=== PATIENT | female | born 2000 | race Caucasian/White ===

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

== ENCOUNTER 2021-02-19 10:27 | Emergency (ER) | payer BC, SELFPAY ==
--- NOTE | ~2021-02-19 | US_ITS ---
EXAMINATION: US OB <=14 wk fetus w TV DATE: 02/19/2021 14:11 INDICATION: Pelvic pain. Nausea and vomiting. Estimated gestational age of 14 weeks and 0 days. TECHNIQUE: Real-time transabdominal and transvaginal pelvic ultrasound was performed. COMPARISON: None. FINDINGS: TRANSABDOMINAL ULTRASOUND: The uterus size was not measured. TRANSVAGINAL ULTRASOUND: There is an intrauterine gestational sac with a single fetus in transverse l ie. heart motion is identified measuring 163 beats per minute (bpm) by M-mode Doppler. The plac enta is posterior. There is a 4.1 x 4.6 x 4.6 cm hypoechoic mass in the uterine fundus adjacent to th e placenta. The ovaries are not visualized. There is no free fluid in the pelvis. IMPRESSION: 1. 4.6 cm hypoechoic mass in the uterine fundus adjacent to the placenta, which may be a fibroid or hematoma. Reviewed, dictated and finalized at location B. IMPRESSION: 1. 4.6 cm hypoechoic mass in the uterine fundus adjacent to the placenta, whic h may be a fibroid or hematoma.
[2021-02-19 10:31] VITALS: BP 186/96; PULSE 118; RESP 18; TEMP 36.6; O2SAT 96
--- NOTE | 2021-02-19 10:33 | ED.ABDPAIN ---
HPI - Abdominal Pain General Chief Complaint: Abdominal Pain Stated Complaint: abd pain, n/v, 13 wks Time Seen by Provider: 02/19/21 10:33 Source: patient Mode of arrival: ambulatory Limitations: no limitations History of Present Illness HPI narrative: Patient is a 20-year-old female, G1, P0 currently 13 weeks dated by ultrasound at her OB office, who presents for evaluation of abdominal pain. Patient reports a pressure-like sensation in her lower abdomen that was severe overnight and improving today. She had some associated nausea and several episodes of nonbloody, nonbilious emesis yesterday. She currently denies any fever or chills. No vaginal bleeding or recent intercourse. No loss of fluids or contraction-like pain. She denies fever, chills, constipation or diarrhea. She reports pain is now mostly in the upper abdomen described as dull, aching in nature. No history of abdominal surgery. Related Data Home Medications Medication Instructions Recorded Confirmed prenat.vits,naman,aqx-rifi-opmhe 1 tablet PO DAILY 02/19/21 02/19/21 [ Vitamin] Allergies Allergy/AdvReac Type Severity Reaction Status Date / Time No Known Allergies Allergy Verified 02/19/21 10:35 Review of Systems Review of Systems: Narrative: CONSTITUTIONAL: Denies fever, chills, or sweats. EYES: Denies visual changes, redness, or discharge. ENT: Denies rhinorrhea, congestion, sore throat, or otalgia. CARDIOVASCULAR: Denies chest pain, palpitations, or edema. RESPIRATORY: Denies cough or dyspnea. GASTROINTESTINAL: Reports centralized abdominal pain, denies diarrhea or constipation GENITOURINARY: Denies dysuria or hematuria. SKIN: Denies rash or itching. MUSCULOSKELETAL: Reports chronic mild back pain, denies other joint pain or myalgias NEUROLOGIC: Denies headache, numbness, or weakness. [facility] Past Medical History Medical History (Updated 02/19/21 @ 15:24 by Santa Sumner MD) Anxiety and depression History of prediabetes History of strep sore throat Left elbow fracture Nonalcoholic liver disease, chronic Surgical History Surgical History History of tonsillectomy and adenoidectomy Social History Social History Smoking status: Never smoker Additional occupation/education comments: [employer] Gender identity (if verbalized by the patient): Female Exam Narrative: Exam Narrative: GENERAL: Awake, alert, conversant HEAD: Normocephalic, atraumatic. EYES: PERRLA and EOMI. ENT: Nares clear, no rhinorrhea or epistaxis. Mucous membranes moist. NECK: Supple. CHEST: No respiratory distress, breathing even and non labored HEART: Tachycardic rate, sinus rhythm ABDOMEN:Non distended, tender in the epigastrium and right upper quadrant, no suprapubic tenderness, no pelvic tenderness, no lower quadrant tenderness on exam, no guarding, nonrigid EXTREMITIES: Normal range of motion. No edema. SKIN: Warm, dry, no rash. NEURO:No focal deficits. Alert and oriented x3 Course Vital Signs Vital signs: Vital Signs Temperature 36.6 C 02/19/21 10:31 Pulse Rate 118 H 02/19/21 10:31 Respiratory Rate 18 02/19/21 10:31 Blood Pressure 186/96 H 02/19/21 10:31 Pulse Oximetry 96 02/19/21 10:31 Temperature 36.6 C 02/19/21 10:31 Pulse Rate 96 02/19/21 11:11 Respiratory Rate 18 02/19/21 11:11 Blood Pressure 153/87 H 02/19/21 11:11 Pulse Oximetry 100 02/19/21 11:11 MDM - Abdominal Pain MDM Narrative Medical decision making narrative: Patient presented for evaluation of upper abdominal pain. At the time of assessment, pain is mild in nature. Mildly reproducible on exam. No vaginal bleeding or vaginal discharge. IV access obtained and labs were drawn. Laboratory results are reassuring. No anemia. No leukocytosis to be suggestive of acute intra-abdominal infection such as appendicitis or
[2021-02-19] MEDS: ONDANSETRON INJ 4 MG/2 ML VIAL IV PUSH (10:57)
[2021-02-19] MEDS: SODIUM CHLORIDE 0.9% IV 1,000 ML 999 ML IV CONT (10:57)
[2021-02-19 10:58] LABS: Basophils Percent Auto 0.1 % (0.2-1.2); Eosinophils Percent Auto 0.1 % (0-4.4); Hematocrit 37.3 % (37.0-47.0); Hemoglobin 12.4 g/dL (12.0-15.0); Immature Granulocyte Absolute 0.02 K/mm3 (0.00-0.031); Immature Granulocyte Percent A 0.3 % (0-0.5); Lymphocytes Absolute Auto 1.12 K/mm3 (0.9-3.2); Lymphocytes Percent Auto 14.1 % (18.3-44.2); Mean Corpuscular HGB Conc 33.2 g/dl (32-36); Mean Corpuscular Hemoglobin 26.8 pg (26-34); Mean Corpuscular Volume 80.6 fl (80-100); Mean Platelet Volume 8.4 fl (7.4-10.4); Monocytes Absolute Auto 0.4 K/mm3 (0.1-0.6); Monocytes Percent Auto 4.7 % (2.6-8.5); Neutrophils Absolute Auto 6.4 K/mm3 (1.3-6.7); Neutrophils Percent Auto 80.7 % (45.5-73.1); Platelet Count Result 327 k/mm3 (150-375); Red Blood Count 4.63 M/mm3 (4.2-5.4); Red Cell Distribution Width 13.8 % (11.5-14.5)
[2021-02-19 11:11] VITALS: BP 153/87; PULSE 96; RESP 18; O2SAT 100
[2021-02-19 11:11] LABS: Alanine Aminotransferase 14 U/L (4-35); Albumin Level 4.2 g/dL (3.7-5.6); Alkaline Phosphatase 73 U/L (45-116); Anion Gap 8 mmol/L (8-16); Aspartate Amino Transferase 23 U/L (14-36); Bilirubin,Total 0.5 mg/dL (0.2-1.3); Blood Urea Nitrogen 7 mg/dL (8-21); Calcium 9.5 mg/dL (8.9-10.7); Carbon Dioxide 26 mmol/L (22-30); Chloride 103 mmol/L (98-107); Estimated CRCL calculation 207 ml/min; Estimated Glomerular Filt Rate > 60; Glucose 108 mg/dL (65-105); Lipase 27 U/L (23-300); Potassium 3.6 mmol/L (3.4-5.0); Sodium 137 mmol/L (134-143)
--- NOTE | 2021-02-19 12:43 | PC.NURSE ---
Called chemistry Lab and added on Beta HCG per Santa.anderson...green top already in lab. Spoke with Santa
[2021-02-19] MEDS: ACETAMINOPHEN 500 MG TABLET 1000 MG PO (12:53)
[2021-02-19 15:13] LABS: Add Urine Microscopic? YES; Appearance Urine Cloudy (Clear); Bacteria Urine Trace /hpf; Bilirubin Urine Negative (Negative); Blood Urine Negative (Negative); Color Urine Amber (Yellow); Glucose Urine UA Negative (Negative); Ketones Urine 2+ mg/dL (Negative); Leukocyte Esterase Ur Trace LEU/UL (Negative); Mucus Urine Heavy /lpf; Nitrate Urine Negative (Negative); Protein Urine 2+ mg/dL (Negative); RBC Urine 0-2 /hpf (0-2); Squamous Epithelial Cell Urine Many /hpf (Few)
[2021-02-19 15:17] LABS: Specific Grav Ur 1.035 (1.001-1.035)
== END 2021-02-19 16:06 | disposition home or self-care (01) ==
PROVIDERS: Emergency Provider Emergency Medicine; PCP Family Medicine
DX: O26.891 Other specified pregnancy related conditions, first trimester (principal); R10.10 Upper abdominal pain, unspecified; R82.71 Bacteriuria; O99.891 Other specified diseases and conditions complicating pregnancy; N85.8 Other specified noninflammatory disorders of uterus; O26.611 Liver and biliary tract disorders in pregnancy, first trimester; K76.9 Liver disease, unspecified; Z3A.13 13 weeks gestation of pregnancy
CPT/HCPCS: 36415; 76801; 76817; 80053; 81001; 83690; 84702; 85025; 85461; 96361; 96374; 99284; A9270; J2405; J7030

== ENCOUNTER 2021-05-14 09:44 | Emergency (ER) | payer BC, SELFPAY ==
[2021-05-14] VITALS (11 sets, daily range): BP systolic 106–138; BP diastolic 66–88; PULSE 77–103; RESP 12–24; O2SAT 94–100
--- NOTE | ~2021-05-14 | XR_ITS ---
XR chest 1V DATE: 05/14/2021 11:07 INDICATION: Shortness of breath TECHNIQUE: PA chest COMPARISON: 06/27/2017 two-view chest FINDINGS: Normal heart size. No hilar or mediastinal enlargement. Minimal atelectasis in the lung bas es. No pleural effusion or pulmonary vascular congestion or pneumothorax. Included skeletal structures are unremarkable. IMPRESSION: Minimal basilar atelectasis Reviewed, dictated and finalized at location B. IMPRESSION: Minimal basilar atelectasis
--- NOTE | 2021-05-14 10:01 | ECG_ITS ---
Measurements Intervals [place] Rate: 104 P: 17 HI: 150 QRS: 12 QRSD: 100 T: 32 QT: 319 QTc: 420 Interpretive Statements SINUS TACHYCARDIA VOLTAGE CRITERIA FOR LVH MINIMAL Q WAVES- HIGH LATERAL LEADS BASELINE ARTIFACT- I, III, AVL BORDERLINE ECG Electronically Signed On 05-14-2021 10:07:17 CDT by Jaquan Bettencourt D.O.
[2021-05-14 10:16] LABS: Basophils Percent Auto 0.1 % (0.2-1.2); Eosinophils Percent Auto 0.2 % (0-4.4); Hematocrit 33.1 % (37.0-47.0); Immature Granulocyte Absolute 0.02 K/mm3 (0.00-0.031); Immature Granulocyte Percent A 0.2 % (0-0.5); Lymphocytes Absolute Auto 1.03 K/mm3 (0.9-3.2); Lymphocytes Percent Auto 12.6 % (18.3-44.2); Mean Corpuscular HGB Conc 33.2 g/dl (32-36); Mean Corpuscular Hemoglobin 27.4 pg (26-34); Mean Corpuscular Volume 82.3 fl (80-100); Mean Platelet Volume 8.7 fl (7.4-10.4); Monocytes Absolute Auto 0.4 K/mm3 (0.1-0.6); Monocytes Percent Auto 5.4 % (2.6-8.5); Neutrophils Absolute Auto 6.6 K/mm3 (1.3-6.7); Neutrophils Percent Auto 81.5 % (45.5-73.1); Platelet Count Result 274 k/mm3 (150-375); Red Blood Count 4.02 M/mm3 (4.2-5.4); Red Cell Distribution Width 13.2 % (11.5-14.5); White Blood Count 8.2 K/mm3 (4.5-10.0)
[2021-05-14 10:27] LABS: Anion Gap 6 mmol/L (8-16); Blood Urea Nitrogen 5 mg/dL (8-21); Calcium 9.7 mg/dL (8.9-10.7); Carbon Dioxide 25 mmol/L (22-30); Chloride 102 mmol/L (98-107); Estimated CRCL calculation 205 ml/min; Estimated Glomerular Filt Rate > 60; Glucose 101 mg/dL (65-105); Potassium 3.8 mmol/L (3.4-5.0); Sodium 133 mmol/L (134-143)
[2021-05-14] MEDS: SODIUM CHLORIDE 0.9% IV 1,000 ML 999 ML IV CONT (10:45)
--- NOTE | 2021-05-14 13:30 | ED.SOB ---
HPI - SOB/Dyspnea General Chief Complaint: Shortness of Breath/Dyspnea Stated Complaint: 26WKS PREG -ABD PAIN, FEELS SOB Time Seen by Provider: 05/14/21 10:13 History of Present Illness HPI Narrative: Patient is a 20-year-old female who presents ER with shortness of breath. She is 26 weeks . 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 She became short of breath and fatigued. She reports that she has been having some abdominal cramping associated with this. No urinary frequency urgency or dysuria. No fevers or chills or sweats. Denies runny nose or sore throat or productive cough. Denies complications with her . Related Data Home Medications Medication Instructions Recorded Confirmed prenat.vits,naman,mir-[id number]-[id number] 1 tablet PO DAILY 02/19/21 02/19/21 [ Vitamin] aspirin [Adult Aspirin] 162 mg PO DAILY 05/14/21 05/14/21 Allergies Allergy/AdvReac Type Severity Reaction Status Date / Time No Known Allergies Allergy Verified 05/14/21 10:04 Review of Systems Review of Systems: All systems reviewed & are unremarkable except as noted in HPI and below Constitutional: Constitutional: Denies chills, Denies fever(s) and Reports weakness ENT: Denies nasal congestion and Denies sore throat Cardiovascular: Cardiovascular: Denies chest pain, Denies rapid heart rate and Denies radiating jaw, neck or arm pain Respiratory: Respiratory: Denies cough, Reports dyspnea and Denies wheezing Gastrointestinal: Gastrointestinal: Reports abdominal pain, Denies nausea and Denies vomiting Genitourinary: Genitourinary: Denies nocturia and Denies dysuria [facility] Past Medical History Medical History (Updated 05/14/21 @ 13:48 by Levon Sutton MD) Anxiety and depression History of prediabetes History of strep sore throat Left elbow fracture Nonalcoholic liver disease, chronic Surgical History Surgical History History of tonsillectomy and adenoidectomy Social History Social History Smoking status: Never smoker Additional occupation/education comments: [employer] Gender identity (if verbalized by the patient): Female Exam Narrative: Exam Narrative: GENERAL: Well-appearing, well-nourished, and in no acute distress. HEAD: Normocephalic, atraumatic. CHEST: Clear to auscultation. No respiratory distress. HEART: Tachycardic and regular. Normal peripheral pulses. ABDOMEN: Soft, nontender, nondistended. Uterus palpated above the umbilicus. EXTREMITIES: Normal range of motion. No edema. SKIN: Warm, dry, no rash. NEURO: Alert and oriented x3. PSYCH: Normal mood and affect. Course Course Emergency Course: Patient reports he feels markedly improved after IV fluid. Discharge home. Vital Signs Vital signs: Vital Signs Pulse Rate 103 H 05/14/21 09:57 Respiratory Rate 12 05/14/21 09:57 Blood Pressure 130/81 05/14/21 09:57 Pulse Oximetry 94 05/14/21 09:57 Pulse Rate 83 05/14/21 13:01 Respiratory Rate 24 H 05/14/21 13:01 Blood Pressure 120/74 05/14/21 13:01 Pulse Oximetry 100 05/14/21 13:14 MDM - SOB/Dyspnea Lab Data Result diagrams: 05/14/21 10:09 05/14/21 10:09 Labs: Lab Results 05/14/21 05/14/21 Range/Units 10:09 10:09 WBC 8.2 (4.5-10.0) K/mm3 RBC 4.02 L (4.2-5.4) M/mm3 Hgb 11.0 L (12.0-15.0) g/dL Hct 33.1 L (37.0-47.0) % MCV 82.3 (80-100) fl MCH 27.4 (26-34) pg MCHC 33.2 (32-36) g/dl RDW 13.2 (11.5-14.5) % Plt Count 274 (150-375) k/mm3 MPV 8.7 (7.4-10.4) fl Immature Gran % (Auto) 0.2 (0-0.5) % Neut % (Auto) 81.5 H (45.5-73.1) % Lymph % (Auto) 12.6 L (18.3-44.2) % [place] % (Auto) 5.4 (2.6-8.5) % Eos % (Auto) 0.2 (0-4.4) % Baso % (Auto) 0.1 L (0.2-1.2) % Lymph # (Auto) 1.03 (0.9-3.2) K/mm3 [place] # (Auto) 0.4 (0.1-0.6) K/mm3
== END 2021-05-14 14:13 | disposition home or self-care (01) ==
PROVIDERS: Emergency Provider Emergency Medicine; PCP Family Medicine
DX: O26.892 Other specified pregnancy related conditions, second trimester (principal); T67.5XXA Heat exhaustion, unspecified, initial encounter; Z79.82 Long term (current) use of aspirin; Z3A.26 26 weeks gestation of pregnancy; X30.XXXA Exposure to excessive natural heat, initial encounter; Y92.59 Other trade areas as the place of occurrence of the external cause; Y99.0 Civilian activity done for income or pay
CPT/HCPCS: 36415; 71045; 80048; 85025; 93005; 96360; 99284; J7030

== ENCOUNTER 2021-06-27 15:06 | Outpatient (CLI) | payer BC, SELFPAY ==
[2021-06-27 15:45] VITALS: BP 123/65; PULSE 92
[2021-06-27 16:00] VITALS: BP 121/56; PULSE 98
[2021-06-27 16:00] LABS: Basophils Percent Auto 0.2 % (0.2-1.2); Eosinophils Percent Auto 0.3 % (0-4.4); Hemoglobin 10.9 g/dL (12.0-15.0); Immature Granulocyte Absolute 0.01 K/mm3 (0.00-0.031); Immature Granulocyte Percent A 0.2 % (0-0.5); Lymphocytes Absolute Auto 0.93 K/mm3 (0.9-3.2); Lymphocytes Percent Auto 14.5 % (18.3-44.2); Mean Corpuscular Hemoglobin 26.9 pg (26-34); Mean Corpuscular Volume 81.5 fl (80-100); Mean Platelet Volume 9.4 fl (7.4-10.4); Monocytes Absolute Auto 0.4 K/mm3 (0.1-0.6); Monocytes Percent Auto 5.8 % (2.6-8.5); Neutrophils Absolute Auto 5.1 K/mm3 (1.3-6.7); Platelet Count Result 265 k/mm3 (150-375); Red Blood Count 4.05 M/mm3 (4.2-5.4); Red Cell Distribution Width 13.2 % (11.5-14.5); White Blood Count 6.4 K/mm3 (4.5-10.0)
[2021-06-27 16:14] LABS: Alanine Aminotransferase 23 U/L (4-35); Albumin Level 3.3 g/dL (3.7-5.6); Alkaline Phosphatase 114 U/L (45-116); Anion Gap 7 mmol/L (8-16); Aspartate Amino Transferase 26 U/L (14-36); Bilirubin,Total 0.4 mg/dL (0.2-1.3); Blood Urea Nitrogen 7 mg/dL (8-21); Calcium 9.4 mg/dL (8.9-10.7); Carbon Dioxide 23 mmol/L (22-30); Chloride 105 mmol/L (98-107); Estimated Glomerular Filt Rate > 60; Glucose 107 mg/dL (65-110); Potassium 3.7 mmol/L (3.4-5.0); Sodium 135 mmol/L (134-143); Uric Acid 3.3 mg/dL (3.0-5.9)
[2021-06-27 16:15] VITALS: BP 116/57; PULSE 97
[2021-06-27 16:30] VITALS: BP 126/49; PULSE 87
[2021-06-27 16:45] VITALS: BP 128/57; PULSE 95
[2021-06-27 17:00] VITALS: BP 133/55; PULSE 95
--- NOTE | 2021-06-27 17:06 | PC.NURSE ---
Called Dr. Farmer with lab results, and BPs. Informed of occasional contractions noted, but pt denies feeling contractions. Wait for UA results and call.
[2021-06-27 17:59] LABS: Add Urine Microscopic? YES; Appearance Urine Cloudy (Clear); Bacteria Urine 1+ /hpf; Bilirubin Urine Negative (Negative); Blood Urine Negative (Negative); Color Urine Amber (Yellow); Glucose Urine UA Negative (Negative); Ketones Urine 1+ mg/dL (Negative); Leukocyte Esterase Ur 2+ LEU/UL (NEGATIVE); Mucus Urine Few /lpf; Nitrate Urine Negative (Negative); Protein Urine 2+ mg/dL (Negative); Squamous Epithelial Cell Urine Many /hpf (Few)
[2021-06-27 18:14] LABS: Specific Grav Ur 1.031 (1.001-1.035)
--- NOTE | 2021-06-27 18:15 | PC.NURSE ---
Called Dr. Farmer. Informed that machine is broken in lab and they are not sure when the urine results will be back. May D/C home.
[2021-06-27 20:40] LABS: Total Protein Urine Random 11 mg/dL
[2021-06-27 21:03] LABS: Creatinine Urine 362.7 mg/dL; Ur Ttl Prot Creatinine Ratio 0.03 mg/mg (0-0.20)
== END 2021-06-27 18:20 | disposition home or self-care (01) ==
LOC: ANHOBOP 06-28 08:29 → ANHOBPP 06-28 08:29
PROVIDERS: PCP Family Medicine; Visit Provider Obstetrics & Gynecology
DX: O13.9 Gestational [pregnancy-induced] hypertension without significant proteinuria, unspecified trimester (principal); Z3A.00 Weeks of gestation of pregnancy not specified
CPT/HCPCS: 36415; 59025; 80053; 81001; 82570; 84156; 84550; 85025; 87086; 87088; 99199

== ENCOUNTER 2021-06-29 16:37 | Outpatient (RCR) | payer BC, SELFPAY ==
[2021-06-29 17:55] VITALS: BP 129/66; PULSE 81
== END 2021-09-27 23:59 | disposition home or self-care (01) ==
LOC: ANHOBOP 16:37
PROVIDERS: PCP Family Medicine; Visit Provider Obstetrics & Gynecology
DX: O36.8330 Maternal care for abnormalities of the fetal heart rate or rhythm, third trimester, not applicable or unspecified (principal); Z3A.32 32 weeks gestation of pregnancy
CPT/HCPCS: 59025

== ENCOUNTER 2021-08-01 13:33 | Inpatient (IN) | payer BC, SELFPAY ==
[2021-08-01] VITALS (99 sets, daily range): BP systolic 94–153; BP diastolic 44–122; PULSE 69–113; TEMP 36.6–36.8; O2SAT 94–100; BMI 48.0
[2021-08-01 13:14] LABS: Glucose Point of Care 144 mg/dl (65-105)
[2021-08-01 13:25] LABS: Basophils Percent Auto 0.1 % (0.2-1.2); Eosinophils Percent Auto 0.1 % (0-4.4); Hematocrit 32.7 % (37.0-47.0); Hemoglobin 10.6 g/dL (12.0-15.0); Immature Granulocyte Absolute 0.08 K/mm3 (0.00-0.031); Immature Granulocyte Percent A 1.1 % (0-0.5); Lymphocytes Absolute Auto 1.04 K/mm3 (0.9-3.2); Lymphocytes Percent Auto 14.8 % (18.3-44.2); Mean Corpuscular HGB Conc 32.4 g/dl (32-36); Mean Corpuscular Hemoglobin 26.3 pg (26-34); Mean Corpuscular Volume 81.1 fl (80-100); Mean Platelet Volume 9.8 fl (7.4-10.4); Monocytes Absolute Auto 0.3 K/mm3 (0.1-0.6); Monocytes Percent Auto 4.5 % (2.6-8.5); Neutrophils Absolute Auto 5.6 K/mm3 (1.3-6.7); Neutrophils Percent Auto 79.4 % (45.5-73.1); Platelet Count Result 249 k/mm3 (150-375); Red Blood Count 4.03 M/mm3 (4.2-5.4); Red Cell Distribution Width 13.6 % (11.5-14.5)
[2021-08-01 13:32] LABS: Creatinine Urine 238.2 mg/dL; Total Protein Urine Random 7 mg/dL; Ur Ttl Prot Creatinine Ratio 0.03 mg/mg (0-0.20)
[2021-08-01 13:35] LABS: Alanine Aminotransferase 13 U/L (4-35); Albumin Level 3.3 g/dL (3.7-5.6); Alkaline Phosphatase 147 U/L (45-116); Anion Gap 9 mmol/L (8-16); Aspartate Amino Transferase 17 U/L (14-36); Bilirubin,Total 0.4 mg/dL (0.2-1.3); Blood Urea Nitrogen 8 mg/dL (8-21); Calcium 9.1 mg/dL (8.9-10.7); Carbon Dioxide 21 mmol/L (22-30); Chloride 106 mmol/L (98-107); Estimated Glomerular Filt Rate > 60; Glucose 141 mg/dL (65-110); Potassium 3.8 mmol/L (3.4-5.0); Sodium 136 mmol/L (134-143); Uric Acid 4.5 mg/dL (3.0-5.9)
[2021-08-01 13:45] LABS: Add Urine Microscopic? YES; Appearance Urine Clear (Clear); Bacteria Urine Trace /hpf; Bilirubin Urine Negative (Negative); Blood Urine Negative (Negative); Color Urine Yellow (Yellow); Glucose Urine UA Negative (Negative); Ketones Urine Trace mg/dL (Negative); Leukocyte Esterase Ur Negative LEU/UL (NEGATIVE); Mucus Urine Rare /lpf; Nitrate Urine Negative (Negative); Protein Urine 1+ mg/dL (Negative); Specific Grav Ur 1.024 (1.001-1.035); Squamous Epithelial Cell Urine Rare /hpf (Few); Urobilinogen Urine Negative mg/dL (<2.0); WBC Urine 0-3 /hpf (0-3)
--- NOTE | 2021-08-01 14:21 | PC.NURSE ---
1421- returned call, read labs and bp's. Orders received to keep pt for IOL with high dose pitocin..
[2021-08-01] MEDS: LACTATED RINGERS 1,000 ML 125 ML IV CONT ×2 (14:48→19:11)
[2021-08-01] MEDS: AMPICILLIN 2 GM/NS 100 ML 2 GM/100 ML BAG IVPB (14:48)
[2021-08-01] MEDS: OXYTOCIN 30 UNITS/NS 500 ML 30 UNITS/500 ML BAG 6 UNITS IV CONT (14:48)
--- NOTE | 2021-08-01 15:00 | LDADM ---
This patient, Brandie Torres, was admitted to Labor/Delivery/Recovery 106 on 08/01/21 at 13:33. Plans for labor, pain management and were discussed with patient. Patient/family oriented to hospital policies and general routines including ID bracelet, bed and alarms, visiting hours, pain management, procedures, bathroom and other care routines, personal items, smoking policy, room service/diet and guest tray routines, security routines, and visiting hours. Patient/Family are encouraged to report perceived risks to care and to ask questions if they do not understand what they are told or what they should do. See OBIX for further documentation.
[2021-08-01 15:04] LABS: Hepatitis B Surface Antigen Negative (Negative)
[2021-08-01] MEDS: ACETAMINOPHEN 325 MG TABLET 650 MG PO ×2 (16:31→23:25)
[2021-08-01 16:37] LABS: Glucose Point of Care 84 mg/dl (65-105)
--- NOTE | 2021-08-01 17:17 | WPDANESEPP ---
Anes - Eval Pre Procedure Procedure: labor epidural Date/Time: 08/01/21 17:17 Surgeon: laverne Pre Op Diagnosis: elevated bp Patient Data Age: 20 Gender: F Height: 1.65 m Weight: 130.91 kg Last Vital Signs Temp 36.8 C 08/01/21 14:53 Pulse 88 08/01/21 17:02 BP 140/81 08/01/21 17:02 Allergies Allergy/AdvReac Type Severity Reaction Status Date / Time No Known Allergies Allergy Verified 08/01/21 11:14 Home Medications Medication Instructions Recorded Confirmed Type prenat.vits,naman,[id number]-[id number]-ahzrt 1 tablet PO DAILY 02/19/21 08/01/21 History acetaminophen 325 mg capsule 325 mg PO Q6H PRN 08/01/21 08/01/21 History aspirin 81 mg chewable tablet 81 mg PO DAILY 08/01/21 08/01/21 History hydroxyzine HCl 25 mg tablet 25 mg PO TID PRN 08/01/21 08/01/21 History sertraline 25 mg tablet 25 mg PO DAILY 08/01/21 08/01/21 History Laboratory Tests 08/01/21 08/01/21 08/01/21 13:03 13:03 13:03 WBC 7.0 K/mm3 K/mm3 (4.5-10.0) RBC 4.03 M/mm3 L M/mm3 (4.2-5.4) Hgb 10.6 g/dL L g/dL (12.0-15.0) Hct 32.7 % L % (37.0-47.0) MCV 81.1 fl fl (80-100) MCH 26.3 pg pg (26-34) MCHC 32.4 g/dl g/dl (32-36) RDW 13.6 % % (11.5-14.5) Plt Count 249 k/mm3 k/mm3 (150-375) MPV 9.8 fl fl (7.4-10.4) Immature Gran % (Auto) 1.1 % H % (0-0.5) Neut % (Auto) 79.4 % H % (45.5-73.1) Lymph % (Auto) 14.8 % L % (18.3-44.2) [place] % (Auto) 4.5 % % (2.6-8.5) Eos % (Auto) 0.1 % % (0-4.4) Baso % (Auto) 0.1 % L % (0.2-1.2) Lymph # (Auto) 1.04 K/mm3 K/mm3 (0.9-3.2) [place] # (Auto) 0.3 K/mm3 K/mm3 (0.1-0.6) Eos # (Auto) 0.0 K/mm3 K/mm3 (0-0.3) Baso # (Auto) 0.0 K/mm3 K/mm3 (0.0-0.1) Abs Immat Gran (auto) 0.08 K/mm3 H K/mm3 (0.00-0.031) Absolute Neuts (auto) 5.6 K/mm3 K/mm3 (1.3-6.7) Absolute Nucleated RBC 0.0 K/mm3 K/mm3 (0.0-0.012) Nucleated RBC % 0.0 % % (0.0-0.2) Sodium Potassium Chloride Carbon Dioxide Anion Gap BUN Creatinine Estim Creat Clear Calc Estimated GFR Glucose POC Capillary Glucose Uric Acid Calcium Total Bilirubin AST ALT Alkaline Phosphatase Total Protein Albumin Urine Color Yellow (Yellow) Urine Appearance Clear (Clear) Urine pH 6.0 (5.0-9.0) Ur Specific [place] 1.024 (1.001-1.035) Urine Protein 1+ mg/dL H mg/dL (Negative) Urine Glucose (UA) Negative mg/dL mg/dL (Negative) Urine Ketones Trace mg/dL mg/dL (Negative) Ur Blood (Man) Negative (Negative) Urine Nitrate Negative (Negative) Urine Bilirubin Negative (Negative) Urine Urobilinogen Negative mg/dL mg/dL (<2.0) Ur Leukocyte Esterase Negative MIKE/UL MIKE/UL (NEGATIVE) Urine RBC 3-5 /hpf H /hpf (0-2) Urine WBC 0-3 /hpf /hpf (0-3) Ur Squamous Epith Cells Rare /hpf /hpf (Few) Urine Bacteria Trace /hpf /hpf Urine Mucus Rare /lpf /lpf U Random Total Protein 7 mg/dL mg/dL Urine Creatinine 238.2 mg/dL mg/dL Protein/Creat Ratio 2 0.03 mg/mg mg/mg (0-0.20) RPR Hep Bs Antigen Blood Type Antibody Screen 08/01/21 08/01/21 08/01/21 13:03 13:11 13:48 WBC RBC Hgb Hct MCV MCH MCHC RDW Plt Count MPV Immature Gran % (Auto) Neut % (Auto) Lymph % (Auto)
--- NOTE | 2021-08-01 18:08 | P.PNOB_ITS ---
Pain Control Date/time seen: 08/01/21 18:08 Patient seen at bedside. Doing well. SVE /- 2. AROM performed. Clear fluid noted. EFM category 1. [place] shows irregular contractions approx. every 1-4 mins. Continue pitocin. Pain management PRN. Increase glycemic monitoring in active labor.
[2021-08-01] MEDS: AMPICILLIN 1 GM/NS 50 ML 1 GM/50 ML BAG IVPB ×2 (19:11→22:59)
[2021-08-01 20:24] LABS: Glucose Point of Care 101 mg/dl (65-105)
[2021-08-01 23:18] LABS: Glucose Point of Care 92 mg/dl (65-105)
[2021-08-02] VITALS (73 sets, daily range): BP systolic 126–175; BP diastolic 72–118; PULSE 69–140; RESP 16–18; TEMP 35.8–37.1; O2SAT 90–100
[2021-08-02] MEDS: ONDANSETRON INJ 4 MG/2 ML VIAL IV PUSH (01:21)
[2021-08-02] MEDS: AMPICILLIN 1 GM/NS 50 ML 1 GM/50 ML BAG IVPB (02:42)
[2021-08-02] MEDS: OXYTOCIN 30 UNITS/NS 500 ML 30 UNITS/500 ML BAG 125 UNITS IV CONT (03:26)
--- NOTE | 2021-08-02 03:34 | P.PCNOB_ITS ---
OB - Delivery Note Procedure Delivery date: 08/02/21 Procedure: Patient is a 20-year-old now who was admitted to Labor and delivery on 08/01/2021 at 37 weeks and 2 days gestation for induction labor secondary to newly diagnosed gestational hypertension and uncontrolled gestational diabetes. Initial cervical exam was approximately 3 cm dilated. Induction of labor was begun with Pitocin. Antibiotics were started for unknown GBS status. Pitocin was slowly titrated throughout the afternoon and evening. Artificial rupture membranes was performed at approximately 6:00 p.m. Clear amniotic fluid was noted. Cervical exam was approximately 4 cm dilated at this time. Pitocin was continuously titrated. An IUPC was placed for enhanced monitoring. Patient became uncomfortable and requested an epidural for pain management which was placed without difficulty. Patient made progressive cervical change and was found to be fully dilated at 1:30 a.m. Patient was encouraged to push and found be pushing well. She was prepped and draped for delivery. At 3:02 a.m., patient delivered infant head atraumatically and without difficulty in OMAR presentation. Occiput restituted to maternal right side. With subsequent push, the infant's neck, shoulders, rest of body delivered without difficulty. Infant's nose and mouth were suctioned with bulb suction and was placed on maternal abdomen where care was assumed by awaiting nursing staff. Delayed cord clamping was performed for approximately 45-60 seconds. The cord was clamped and cut. A segment of cord was collected for cord gases. Cord blood was collected. The placenta was delivered spontaneously and intact and prepared to be sent to pathology. Uterine fundus was noted to be firm with massage. On inspection, a superficial first-degree perineal abrasion was noted as well as a right vaginal wall abrasion. These abrasions were oozing slightly and made hemostatic with 3-0 Vicryl in usual fashion. Excellent hemostasis was noted. The infant was a live-born male infant, Apgars 6 and 8, weighing 6 lb 5 oz. Estimated blood loss for entire delivery was 150 cc. Both mother and baby doing well at end of delivery. events: Gestational Diabetes, Induced HTN and Labor Induction Induction method: per pitocin protocol Delivery augmentation: rupture of membranes Delivery monitor: external FHT, external uterine and internal uterine Route of delivery: Laceration Description: Perineal - 1st Degree and Vaginal - 1st Degree (superficial right vaginal wall abrasion) Delivery repair: vicryl (3-0) Specimen: Yes (placenta and cord, cord blood and cord gases) Quantitative Blood Loss (ml): 150 Anesthesia type: Epidural Disposition: floor Complications: No immediate complications [place] Baby Date of : 08/02/21 Time of : 03:02 Weeks of gestation at delivery: 37 (37.3) gender: Male Weight (pounds): 6 Weight (ounces): 5 presentation: vertex position: Left Occiput Anterior Placenta delivery description: Spontaneous cord vessel description: 3 Vessels and Delayed Cord Clamping score one minute: 6 score five minutes: 8
--- NOTE | 2021-08-02 05:20 | PM.IMHP ---
H&P: HPI History of Present Illness Date/Time: LATE ENTRY HP based on encounter 08/01/2021 .... 08/02/21 05:20 G1 at 37+2 came to her first office visit in 3 weeks and had elevated BP 150/100 and repeat 150/110, complaint of HARDEN off and on for 4-5 days, and has not been compliant with management of gestational diabetes. She has no showed all but one of her 7+ appointments within the last 3 weeks with MFM (twice weekly) and with me (weekly). She has been checking her blood sugar 1-2 times per day and reports fasting levels 60-90 and 1 hour after breakfast usually 80s-160s. She reports good movement, occasional contractions. No vaginal bleeding or leaking fluid. No RUQ pain, CP, SOB, dizziness, visual changes. + swelling in both feet and ankles. Chief Complaint: Gestational hypertension Review of Systems Review of Systems: All systems reviewed & are unremarkable except as noted in HPI and below PMFSH Past Medical History Medical History (Updated 08/02/21 @ 05:33 by Libby Farmer MD) Anxiety and depression History of prediabetes Nonalcoholic liver disease, chronic Surgical History Surgical History History of tonsillectomy and adenoidectomy 2016? Family History Family History (Updated 08/01/21 @ 14:09 by Juan José Esteves RN) Father Hypertension Asthma Mother , 06/2021 Diabetes mellitus Heart failure Kidney disease Hypertension Asthma Grandparent Diabetes mellitus Heart problem Other Patient's mother is Social History Social History Smoking status: Former smoker Tobacco type: cigarettes Additional smoking assessment comments: quit when she found out she was Alcohol intake: former Alcohol use details: heavy drinker prior to find out she is Substance use: never Additional occupation/education comments: [employer] Gender identity (if verbalized by the patient): Female Spiritual care concerns: No Meds Home Medications and Allergies Home Medications Medication Instructions Recorded Confirmed Type prenat.vits,naman,arg-cafs-xbpkf 1 tablet PO DAILY 02/19/21 08/01/21 History acetaminophen 325 mg capsule 325 mg PO Q6H PRN 08/01/21 08/01/21 History aspirin 81 mg chewable tablet 81 mg PO DAILY 08/01/21 08/01/21 History hydroxyzine HCl 25 mg tablet 25 mg PO TID PRN 08/01/21 08/01/21 History sertraline 25 mg tablet 25 mg PO DAILY 08/01/21 08/01/21 History Allergies Allergy/AdvReac Type Severity Reaction Status Date / Time No Known Allergies Allergy Verified 08/01/21 11:14 Vital Signs Vital Signs - 24 hr 08/01/21 13:04 08/01/21 13:13 08/01/21 13:31 Temperature Pulse Rate 104 H 109 H 96 Blood Pressure 153/116 H 136/105 H 150/82 H Pulse Oximetry 08/01/21 14:07 08/01/21 14:15 08/01/21 14:17 Temperature 36.8 C Pulse Rate 100 98 Blood Pressure 139/92 H 145/79 H Pulse Oximetry 08/01/21 14:32 08/01/21 14:53 08/01/21 15:02 Temperature 36.8 C Pulse Rate 107 H 96 Blood Pressure 150/83 H 128/82 Pulse Oximetry 08/01/21 15:17 08/01/21 15:32 08/01/21 15:47 Temperature Pulse Rate 96 85 104 H Blood Pressure 147/90 H 138/83 137/70 Pulse Oximetry 08/01/21 16:02 08/01/21 16:17 08/01/21 16:32 Temperature Pulse Rate 101 H 101 H 85 Blood Pressure 140/77 101/87 130/79 Pulse Oximetry 08/01/21 16:47 08/01/21 17:02 08/01/21 17:17 Temperature Pulse Rate 83 88 94 Blood Pressure 142/70 H 140/81 143/74 H Pulse Oximetry 08/01/21 17:32 08/01/21 17:47 08/01/21 18:02 Temperature Pulse Rate 86 91 Blood Pressure 143/73 H 130/96 H 147/118 H Pulse Oximetry 08/01/21 18:17 08/01/21 18:32 08/01/21 18:48 Temperature Pulse Rate 77 106 H 81 Blood Pressure 135/72 94/53 L 136/64 Pulse Oximetry 08/01/21 19:02 08/01/21 19:15
[2021-08-02 07:50] LABS: Rapid Plasma Reagin Non-Reactive (NonReactive)
[2021-08-02] MEDS: IBUPROFEN 600 MG TABLET PO ×3 (09:17→23:08)
[2021-08-02] MEDS: DOCUSATE SODIUM 100 MG CAPSULE PO (09:17)
[2021-08-02] MEDS: MULTIVIT/MIN/PREN/FOL AC/IRON TABLET 1 TAB PO (09:17)
--- NOTE | 2021-08-02 12:58 | PCCCNOTE ---
Care Coordination. Pt. referred to Care Coordination for resources. Spoke with pt. and FOB at bedside. Pt. and FOB plan to go home together. Pt. reports she plans to get setup with WIC services near her home. Provided pt. with transportation, counseling, and center information. Pt. reports only have one car right now, so missed some appointments. Explained how she could obtain transportation through Medicaid and provided contact information. Discussed post- depression and pt. could be high risk for as her mother just in Jun as well. Encouraged pt. to keep in contact with her doctor about how she's feeling. No further care coordination needs.
[2021-08-03 04:30] VITALS: BP 143/86; PULSE 90; RESP 18; TEMP 36.4; O2SAT 99
[2021-08-03 05:31] LABS: Hematocrit 30.5 % (37.0-47.0); Hemoglobin 9.8 g/dL (12.0-15.0)
--- NOTE | 2021-08-03 08:02 | P.PNOB_ITS ---
OB - PN: Subj Subjective Date/time seen: 08/03/21 08:02 Patient comments: pain well controlled and other (Lochia similar to menses) [place] baby status: doing well Narrative: She c/o a toothache since yesterday. Ibuprofen not helping. Occasional HARDEN. No visual changes OB - PN: Obj Data Labs CBC & Chem 7: 08/03/21 04:30 08/01/21 13:03 Labs: Laboratory Results - last 24 hr 08/03/21 04:30 Hgb 9.8 L Hct 30.5 L OB - PN A/P Assessment and Plan (1) Gestational hypertension affecting first : Code(s): O13.9 - Gestational [-induced] hypertension without significant proteinuria, unspecified trimester Status: Acute Assessment and Plan: BP normal to mildly elevated, asymptomatic other than ocasional HARDEN. Continue to observe. Possible discharge tomorrow Plan day: 1 (s/p vaginal delivery, doing well) Plan: routine care Comments: May take norco prn toothache, and she was advised to try to schedule appointment with dentist tommie Time Spent With Patient Time: Total time spent is greater than 50% in coordination of care (as documented) at patient's floor/unit and/or counseling patient: Time with patient: less than 15 minutes Exam Const: General: no acute distress GI: Inspection: other (Fundus firm and nontender at umbilicus) GI Palp: Yes Soft to palpation and No Tenderness to palpation present (GI) Extrem: General: no edema
[2021-08-03 08:05] VITALS: BP 103/83; PULSE 80; RESP 18; TEMP 37; O2SAT 99
--- NOTE | 2021-08-03 08:41 | WPDANLDPN2 ---
Anes-Prog Note L&D Date/Time: 08/03/21 08:41 Comfortable throughout: labor and delivery Neuraxial method: epidural Epidural/Spinal procedure site: clean & non-tender Neuro status: Neuro function grossly intact. Cardiovascular status: normal Respiratory status: normal Airway patency: baseline Mental status: baseline Post-Op hydration status: normal Vital Signs: Last Vital Signs Temp 36.4 C L 08/03/21 04:30 Pulse 90 08/03/21 04:30 Resp 18 08/03/21 04:30 BP 143/86 H 08/03/21 04:30 Pulse Ox 99 08/03/21 04:30 Pain score (VAS): 11/12 I/O: Intake & Output 08/02/21 08/03/21 08/03/21 23:59 07:59 15:59 Intake Total 800 Output Total 650 200 Balance 150 -200 Post-procedural complaints: none Patient feedback: Patient satisfied with anesthetic care.
[2021-08-03 09:30] VITALS: BP 124/75; PULSE 71; PULSE 80; RESP 16; RESP 18; TEMP 36.8; O2SAT 99
[2021-08-03] MEDS: MULTIVIT/MIN/PREN/FOL AC/IRON TABLET 1 TAB PO (09:42)
[2021-08-03] MEDS: IBUPROFEN 600 MG TABLET PO ×2 (09:42→15:12)
[2021-08-03] MEDS: DOCUSATE SODIUM 100 MG CAPSULE PO ×2 (09:42→15:12)
[2021-08-03] MEDS: POLYSACCHARIDE IRON COMPLEX 150 MG CAPSULE PO ×2 (09:42→15:12)
[2021-08-03] MEDS: BENZOCAINE 20% AER SPR (*SP) 56 GM CAN 1 SPRAY TOPICAL (09:42)
[2021-08-03] MEDS: TETANUS,DIPHTHERIA,AC PERTUSSIS ADULT (0.5 ML) BOOSTRIX IM (09:43)
[2021-08-03] MEDS: WITCH HAZEL 40 PADS 1 PAD TOPICAL (09:43)
--- NOTE | 2021-08-03 10:02 | PC.NURSE ---
Patient viewed the discharge video Mother & Baby Care, The First Two Weeks . Patient was given the opportunity and encouraged to ask questions. Patient verbalized understanding of information shared and has been given the mother/baby guide for home reference.
[2021-08-03 11:34] VITALS: BP 120/72; PULSE 84; RESP 20; TEMP 36.6; O2SAT 97
[2021-08-03 20:00] VITALS: BP 127/84; PULSE 78; RESP 18; TEMP 36.5; O2SAT 95
[2021-08-04 00:30] VITALS: BP 128/81; PULSE 79; RESP 18; TEMP 36.7; O2SAT 97
[2021-08-04 04:30] VITALS: BP 146/86; PULSE 67; RESP 18; TEMP 36.3; O2SAT 100
[2021-08-04] MEDS: POLYSACCHARIDE IRON COMPLEX 150 MG CAPSULE PO (06:47)
[2021-08-04] MEDS: MULTIVIT/MIN/PREN/FOL AC/IRON TABLET 1 TAB PO (06:47)
[2021-08-04] MEDS: IBUPROFEN 600 MG TABLET PO (06:47)
[2021-08-04] MEDS: DOCUSATE SODIUM 100 MG CAPSULE PO (06:47)
[2021-08-04 07:00] VITALS: BP 142/95; PULSE 78; RESP 16; TEMP 36.5; O2SAT 97
--- NOTE | 2021-08-04 09:59 | PM.OBPNVD ---
OB - PN: Subj Subjective Date/time seen: 08/04/21 09:59 Patient doing well this morning. Reported mild headache earlier, currently resolved. Denies any chest pain, shortness of breath, nausea, vomiting, right upper quadrant tenderness, or visual disturbances. Minimal lochia. Ambulating without difficulty. OB - PN: Obj Data Labs CBC & Chem 7: 08/03/21 04:30 08/01/21 13:03 OB - PN A/P Assessment and Plan (1) Normal spontaneous vaginal delivery: Code(s): O80 - Encounter for full-term uncomplicated delivery Status: Acute Assessment and Plan: doing well dc home in stable condition emergency precautions reviewed f/u in office in 1 week for BP check (2) Gestational hypertension affecting first : Code(s): O13.9 - Gestational [-induced] hypertension without significant proteinuria, unspecified trimester Status: Acute Assessment and Plan: BP cuff sent to pharmacy pt advised to take BP at home twice per day and record in log emergency parameters reviewed-go to ED for SBP >160 or DBP >110 (3) Gestational diabetes mellitus (GDM) affecting first : Code(s): O24.419 - Gestational diabetes mellitus in , unspecified control Status: Acute Time Spent With Patient Time: Total time spent is greater than 50% in coordination of care (as documented) at patient's floor/unit and/or counseling patient: Exam Const: General: cooperative, comfortable and no acute distress Nutritional Appearance: obese GI: Inspection: obesity GI Palp: Yes Soft to palpation and No Tenderness to palpation present (GI) Extrem: Right lower extremity: edema Details: 1+ Left lower extremity: edema Details: 1+
--- NOTE | 2021-08-04 10:03 | PM.OBDSVD ---
DS: Admitting Diagnosis Discharge Date 08/04/21 Admitting Diagnosis Intrauterine at 37w Gestational hypertension Uncontrolled gestational diabetes OB - DS: Summary OB Procedures : PIH Mgmt OB Procedures Intrapartum: Spontaneous Vag Delivery OB Procedures: : None Time Spent with Patient Time attestation: Total time spent providing and/or coordinating discharge services: DS: Data Data Completed and Pending Completed studies during hospitalization: Pending at discharge 08/02/21 03:05 Surgical [PTH] Routine Discharge Plan Discharge Attending physician on discharge: Rylee Mena Discharging Clinician: Rylee Mena Anticipated Discharge Date/Time: 08/04/21 10:04 Patient Disposition: Home, Self-Care Activity: as tolerated and pelvic rest Diet: regular Discharge Instructions: Call office ([phone]) to schedule the following appointments: 1. /blood pressure check in 1 week 2. visit in 4-6 weeks You may take Ibuprofen 600mg every 6 hours as needed for pain. Pain medication may make you constipated. It may be helpful to take an [id number] stool softener, such as Colace and/or Senokot, along with the pain medication to help lessen constipation. I have sent a prescription to your pharmacy for a blood pressure monitor. Please take your blood pressure two times per day and record it on a piece of paper. Bring this paper with you to your follow up visit in the office. If the top number (SBP) is >160 or the bottom number (DBP) is >110, you need to call the office immediately or go to the emergency department. Call office or go to ED for pain not controlled with medication, headache, chest pain, shortness of breath, fever, chills, persistent nausea or vomiting, severe abdominal pain, visual changes, heavy vaginal bleeding >2 pads/hour, foul vaginal discharge or odor, or problems with your breasts. Patient Instructions: Antibiotic Form Stand Alone Forms: General Discharge Information Follow-up/Referrals: Libby Farmer MD [Physician] - Discharge Medications: New (DME) blood pressure test kit-large Kit See Rx Instructions .Route Qty: 1 RF: 0 Continued hydroxyzine HCl 25 mg tablet 25 mg PO TID PRN (Reason: Anxiety) RF: 0 sertraline [Zoloft] 25 mg tablet 25 mg PO DAILY RF: 0 acetaminophen [Tylenol] 325 mg capsule 325 mg PO Q6H PRN (Reason: Headache) RF: 0 prenat.vits,naman,nqy-dali-pyqta Tablet 1 tablet PO DAILY RF: 0 Discontinued aspirin 81 mg tablet,chewable 81 mg PO DAILY RF: 0 Date of admission: 08/01/21 13:33 Primary Care Provider: Denise,Uriel Sánchez Admitting Provider: Libby Farmer Attending physician on admission: Libby Farmer Condition: Stable
[2021-08-06 09:27] VITALS: BP 148/88; PULSE 90; RESP 12; TEMP 37.1; O2SAT 99
== END 2021-08-04 11:49 | disposition home or self-care (01) | DRG 807 ==
LOC: ANHOBOP 13:33 → ANHOB2 08-04 10:08 → ANHLDR 08-06 12:04 → ANHOB2 08-06 12:04
PROVIDERS: Admitting Provider Obstetrics & Gynecology; PCP Family Medicine; Visit Provider Student in an Organized Health Care Education/Training Program
DX: O13.4 Gestational [pregnancy-induced] hypertension without significant proteinuria, complicating childbirth (principal); Z37.0 Single live birth; Z3A.37 37 weeks gestation of pregnancy; O24.429 Gestational diabetes mellitus in childbirth, unspecified control; Z91.19 Patient's noncompliance with other medical treatment and regimen; O36.8330 Maternal care for abnormalities of the fetal heart rate or rhythm, third trimester, not applicable or unspecified; O70.0 First degree perineal laceration during delivery; O99.344 Other mental disorders complicating childbirth; F41.9 Anxiety disorder, unspecified; F32.A Depression, unspecified
CPT/HCPCS: 36415; 80053; 81001; 82570; 82948; 84156; 84550; 85014; 85018; 85025; 86592; 86850; 86900; 86901; 87086; 87088; 87340; 88307; 90715; A9270; J0290; J2405; J2590; J2795; J7120

== ENCOUNTER 2021-08-18 02:16 | Emergency (ER) | payer BC, SELFPAY ==
--- NOTE | ~2021-08-18 | CT_ITS ---
EXAMINATION: CT abdomen pelvis w con DATE: 08/18/2021 08:33 INDICATION: Left upper quadrant pain. Vaginal bleeding for 16 days . TECHNIQUE: Computed tomography (CT) of the abdomen and pelvis was performed with 100 cc Omnipaque 350 intravenous contrast. The dose-length product was 1572.12 mGy-cm. Automated exposure control and ite rative reconstruction technique were employed. COMPARISON: Ultrasound dated 08/18/2021. FINDINGS: Lung bases unremarkable. Heart size normal. No significant pleural or pericardial effusion. Fatty infiltration of the liver. The spleen, pancreas, adrenal glands are unremarkable. Gallbladder is present. Normal appendix. There is fluid in the endometrium. No free air or free fluid. No signifi cant vascular abnormality. No lymphadenopathy. There is a urachal remnant of the bladder. No acute os seous abnormality. Mild lower thoracic spondylosis with accentuated kyphosis. IMPRESSION: 1. Mildly thickened endometrium containing fluid, nonspecific. Reviewed, dictated and finalized at location A.
--- NOTE | ~2021-08-18 | US_ITS ---
US abdomen limited INDICATION: . Right upper quadrant pain. PROCEDURE: Realtime right upper abdominal ultrasound. COMPARISON: No prior studies for comparison. FINDINGS: The pancreas is normal without focal mass or pancreatic ductal dilation. Liver echotexture is slightly increased, consistent with fatty infiltration. There is normal directional flow in the portal vein. The gallbladder is normal without stones, gallbladder wall thickening or pericholecystic fluid. Comm on bile duct measures 4 mm. No sonographic Castro's sign. IMPRESSION: 1: Hepatic steatosis. Reviewed, dictated and finalized at location A. IMPRESSION: 1: Hepatic steatosis.
--- NOTE | ~2021-08-18 | US_ITS ---
EXAMINATION: US pelvic complete DATE: 08/18/2021 08:00 INDICATION: 16 days with vaginal delivery. Vaginal bleeding with clots and pelvic pain. Comparison:Ultrasound dated 02/19/2021 TECHNIQUE: Multiple transabdominal sonographic images of the pelvis performed. FINDINGS: The uterus measures 10.2 x 9.6 x 5.6 cm. The endometrial complex measures 11 mm. There is f luid in the endometrium. The right ovary measures 3.3 x 2.6 x 1.6 cm and the left ovary measures 2.9 x 2.3 x 1.7 cm. There ar e small follicles in each ovary. Normal doppler signal in both ovaries. There is no free fluid in the pelvis. There are no abnormal masses seen on either side. IMPRESSION: 1. Mild heterogeneous thickened endometrium measuring 11 mm with small amount of fluid internally. Ca nnot exclude retained products. Reviewed, dictated and finalized at location A. IMPRESSION: 1. Mild heterogeneous thickened endometrium measuring 11 mm with small amount o f fluid internally. Cannot exclude retained products.
[2021-08-18 02:27] VITALS: BP 144/105; PULSE 91; RESP 20; TEMP 36.7; O2SAT 98
[2021-08-18 02:51] LABS: Basophils Percent Auto 0.4 % (0.2-1.2); Eosinophils Absolute Auto 0.1 K/mm3 (0-0.3); Eosinophils Percent Auto 1.6 % (0-4.4); Hematocrit 37.4 % (37.0-47.0); Hemoglobin 11.9 g/dL (12.0-15.0); Immature Granulocyte Absolute 0.02 K/mm3 (0.00-0.031); Immature Granulocyte Percent A 0.3 % (0-0.5); Lymphocytes Absolute Auto 2.02 K/mm3 (0.9-3.2); Lymphocytes Percent Auto 27.5 % (18.3-44.2); Mean Corpuscular HGB Conc 31.8 g/dl (32-36); Mean Corpuscular Hemoglobin 26.6 pg (26-34); Mean Corpuscular Volume 83.7 fl (80-100); Mean Platelet Volume 8.6 fl (7.4-10.4); Monocytes Absolute Auto 0.4 K/mm3 (0.1-0.6); Monocytes Percent Auto 5.9 % (2.6-8.5); Neutrophils Absolute Auto 4.7 K/mm3 (1.3-6.7); Neutrophils Percent Auto 64.3 % (45.5-73.1); Platelet Count Result 328 k/mm3 (150-375); Red Blood Count 4.47 M/mm3 (4.2-5.4); Red Cell Distribution Width 13.2 % (11.5-14.5); White Blood Count 7.3 K/mm3 (4.5-10.0)
[2021-08-18 02:57] LABS: Add Urine Microscopic? YES; Appearance Urine Cloudy (Clear); Bacteria Urine 1+ /hpf; Bilirubin Urine Negative (Negative); Blood Urine 3+ (Negative); Color Urine Yellow (Yellow); Glucose Urine UA Negative (Negative); Ketones Urine Negative (Negative); Leukocyte Esterase Ur 3+ LEU/UL (Negative); Mucus Urine Rare /lpf; Nitrate Urine Negative (Negative); Protein Urine Negative (Negative); Specific Grav Ur 1.017 (1.001-1.035); Squamous Epithelial Cell Urine Moderate /hpf (Few); WBC Urine >75 /hpf
[2021-08-18 03:47] LABS: Alanine Aminotransferase 19 U/L (4-35); Albumin Level 4.1 g/dL (3.7-5.6); Alkaline Phosphatase 115 U/L (45-116); Anion Gap 9 mmol/L (8-16); Aspartate Amino Transferase 23 U/L (14-36); Bilirubin,Total 0.5 mg/dL (0.2-1.3); Blood Urea Nitrogen 13 mg/dL (8-21); Calcium 9.5 mg/dL (8.9-10.7); Carbon Dioxide 26 mmol/L (22-30); Chloride 105 mmol/L (98-107); Estimated Glomerular Filt Rate > 60; Glucose 108 mg/dL (65-110); Lipase 51 U/L (23-300); Potassium 3.9 mmol/L (3.4-5.0); Sodium 140 mmol/L (134-143)
[2021-08-18] MEDS: ONDANSETRON INJ 4 MG/2 ML VIAL IV PUSH ×2 (05:07→08:12)
[2021-08-18] MEDS: KETOROLAC 30 MG/ML VIAL (*BKC) IV PUSH (05:07)
[2021-08-18 05:12] VITALS: BP 134/71; PULSE 97; RESP 18; O2SAT 99
--- NOTE | 2021-08-18 07:52 | ED.ABDPAIN ---
HPI - Abdominal Pain General Chief Complaint: Vaginal Bleeding Stated Complaint: 16 days , nausea, cramping, vag bleeding Time Seen by Provider: 08/18/21 03:36 Source: patient Mode of arrival: ambulatory Limitations: no limitations History of Present Illness HPI narrative: This 20 year female who presents for evaluation of right upper abdominal pain and vaginal bleeding. Patient states she is 16 days in which she had vaginal delivery. She reports over the past 4 days she had worsening vaginal bleeding with lower abdominal cramping. She reports only having to use 4 pads in the past 24 hours ago. She also reports right upper abdominal pain intermittently for 1 week with nausea. She denies fever or urinary symptoms. She states she was told to come to ER. She thinks pain may be worse with eating. Related Data Home Medications Medication Instructions Recorded Confirmed prenat.vits,naman,udg-qjrw-eimht 1 tablet PO DAILY 02/19/21 08/01/21 acetaminophen 325 mg capsule 325 mg PO Q6H PRN 08/01/21 08/01/21 hydroxyzine HCl 25 mg tablet 25 mg PO TID PRN 08/01/21 08/01/21 sertraline 25 mg tablet 25 mg PO DAILY 08/01/21 08/01/21 Allergies Allergy/AdvReac Type Severity Reaction Status Date / Time No Known Allergies Allergy Verified 08/18/21 02:31 Review of Systems Review of Systems: All systems reviewed & are unremarkable except as noted in HPI and below PMFSH Past Medical History Medical History Anxiety and depression History of prediabetes Nonalcoholic liver disease, chronic Surgical History Surgical History History of tonsillectomy and adenoidectomy 2016? Family History Family History (Updated 08/01/21 @ 14:09 by Juan José Esteves RN) Father Hypertension Asthma Mother , 06/2021 Diabetes mellitus Heart failure Kidney disease Hypertension Asthma Grandparent Diabetes mellitus Heart problem Other Patient's mother is Social History Social History Smoking status: Former smoker Tobacco type: cigarettes Additional smoking assessment comments: quit when she found out she was Alcohol intake: former Alcohol use details: heavy drinker prior to find out she is Substance use: never Additional occupation/education comments: [employer] Gender identity (if verbalized by the patient): Female Spiritual care concerns: No Exam Const: General: no acute distress and alert Nutritional Appearance: obese Orientation/consciousness: patient oriented x3 Eyes: EOM: EOMs intact bilaterally Chest: Chest palpation & inspection: normal inspection of the chest Resp: Effort & Inspection: normal respiratory effort and no retractions Auscultation: clear to auscultation bilaterally Cardio: Rate: regular rate Rhythm: regular rhythm Heart sounds: no murmurs GI: GI Palp: Yes Soft to palpation, Yes Tenderness to palpation present (GI) (RUQ, epigastric), No Guarding due to palpation present (GI) and No Rigid due to palpation Auscultation: normal bowel sounds Skin: General skin exam: normal color Rashes: no rashes Neuro: General: patient oriented x3, moves all extremities and CN's II-XI intact bilaterally Psych: Mental Status: mental status grossly normal Affect: normal affect Course Reevaluation(s) Reevaluation #1: Nursing reports patient states pain is still 8/10 in her right upper quadrant. Will order CT abdomen. Date: 08/18/21 Time: 08:09 Reevaluation #2: PAtient is having minimal bleeding. Only spotting in past 7 hours. Date: 08/18/21 Time: 09:02 Consultations Consultation #1: I spoke with Dr. Farmer . She agrees patient can follow up at her appointment on September 06. Date: 08/18/21 Time: 09:03 Vital Signs Vital signs: Vital Signs T
[2021-08-18] MEDS: MORPHINE SULFATE (*CRX) 4 MG/ML INJ IV PUSH (08:12)
[2021-08-18 08:20] VITALS: BP 114/81; PULSE 75; RESP 16; TEMP 36.6; O2SAT 100
== END 2021-08-18 09:27 | disposition home or self-care (01) ==
PROVIDERS: Emergency Provider General Practice; PCP Family Medicine
DX: O72.2 Delayed and secondary postpartum hemorrhage (principal); O86.20 Urinary tract infection following delivery, unspecified; N39.0 Urinary tract infection, site not specified; O99.893 Other specified diseases and conditions complicating puerperium; R10.11 Right upper quadrant pain; O26.63 Liver and biliary tract disorders in the puerperium; K76.0 Fatty (change of) liver, not elsewhere classified; O99.345 Other mental disorders complicating the puerperium; F41.9 Anxiety disorder, unspecified; F32.A Depression, unspecified; Z87.891 Personal history of nicotine dependence
CPT/HCPCS: 36415; 74177; 76705; 76856; 80053; 81001; 81025; 83690; 85025; 87086; 87088; 96374; 96375; 96376; 99284; J1885; J2270; J2405; Q9967

== ENCOUNTER 2022-02-05 18:29 | Observation (INO) | payer BC, MEDICAID, SELFPAY ==
--- NOTE | ~2022-02-05 | XR_ITS ---
EXAM: XR wrist RT min 3V HISTORY: fall injury TODAY, PAIN TO LATERAL SIDE/ SWELLING COMPARISON: None available FINDINGS: Normal mineralization. No fracture or dislocation. No lytic or blastic lesion. Joint space s maintained. No erosion or periosteal change. Soft tissues within normal limits. IMPRESSION: No acute osseous abnormalities detected in the right wrist. Reviewed, dictated and finalized at location K.
[2022-02-05 18:48] VITALS: BP 150/93; PULSE 90; RESP 16; TEMP 36.7; O2SAT 100
--- NOTE | 2022-02-05 18:59 | ED.FALL ---
HPI - Fall General Chief Complaint: Fall Stated Complaint: Fall-21 weeks Time Seen by Provider: 02/05/22 18:51 History of Present Illness HPI Narrative: 21-year-old female presents the emergency room complaints of multiple injuries sustained from a fall. Patient states that she was playing basketball, tripped and fell landed on her hands and knees and then fell forward onto her abdomen. Patient states that she just found out she was 1 week ago, and has had no care. Patient complains of abrasions to both hands, and right wrist pain. Denies abdominal pain at this time Related Data Home Medications Medication Instructions Recorded Confirmed acetaminophen 325 mg capsule 325 mg PO Q6H PRN 08/01/21 08/01/21 Allergies Allergy/AdvReac Type Severity Reaction Status Date / Time No Known Allergies Allergy Verified 09/06/21 11:04 Review of Systems Review of Systems: CONSTITUTIONAL: Denies fever, chills, or sweats. EYES: Denies visual changes, redness, or discharge. ENT: Denies rhinorrhea, congestion, sore throat, or otalgia. CARDIOVASCULAR: Denies chest pain, palpitations, or edema. RESPIRATORY: Denies cough or dyspnea. GASTROINTESTINAL: Denies abdominal pain, nausea, vomiting, or diarrhea. GENITOURINARY: Denies dysuria or hematuria. SKIN: Denies rash or itching. MUSCULOSKELETAL: Reports right wrist pain NEUROLOGIC: Denies headache, numbness, dizziness, or weakness. PSYCHIATRIC: Denies anxiety or depression. [facility] Past Medical History Medical History Anxiety and depression History of prediabetes Nonalcoholic liver disease, chronic Vaginal delivery x1 Surgical History Surgical History History of tonsillectomy and adenoidectomy 2016? Family History Family History Father Hypertension Asthma Mother , 06/2021 Diabetes mellitus Heart failure Kidney disease Hypertension Asthma Grandparent Diabetes mellitus Heart problem Other Patient's mother is Social History Social History Smoking status: Former smoker Tobacco type: cigarettes Additional smoking assessment comments: quit when she found out she was Alcohol intake: former Alcohol use details: heavy drinker prior to find out she is Substance use: never Additional occupation/education comments: [employer] Gender identity (if verbalized by the patient): Female Spiritual care concerns: No Exam Narrative: GENERAL: Well-appearing, well-nourished, and in no acute distress. HEAD: Normocephalic, atraumatic. EYES: PERRLA and EOMI. CHEST: Clear to auscultation. No respiratory distress. No wheezes rales or rhonchi HEART: Regular rate and rhythm. No murmur heard. Normal peripheral pulses. ABDOMEN: Soft, nontender, nondistended, normal active bowel sounds. EXTREMITIES: right hand: Tenderness to the base of the thumb, no snuffbox tenderness, no obvious bony abnormality, no swelling SKIN: Abrasions to bilateral palms NEURO: No focal deficits. Alert and oriented x3. PSYCH: Normal mood and affect. Course Course Emergency Course: 1929: Patient medically cleared from the ER. Instructed patient to go to OB for further evaluation. Vital Signs Vital signs: Vital Signs Temperature 36.7 C 02/05/22 18:48 Pulse Rate 90 02/05/22 18:48 Respiratory Rate 16 02/05/22 18:48 Blood Pressure 150/93 H 02/05/22 18:48 Pulse Oximetry 100 02/05/22 18:48 Temperature 36.7 C 02/05/22 18:48 Pulse Rate 90 02/05/22 18:48 Respiratory Rate 16 02/05/22 18:48 Blood Pressure 150/93 H 02/05/22 18:48 Pulse Oximetry 100 02/05/22 18:48 MDM - Fall Imaging Data Radiologist's impression: Impressions Wrist X-Ray 02/05/22 19:05 IM
--- NOTE | 2022-02-05 20:12 | OBADM ---
This patient, Brandie Torres, admitted to the OB room OB Post 116 for observation. Patient/family oriented to hospital policies and general routines including ID bracelet, bed and alarms, visiting hours, pain management, procedures, bathroom and other care routines, personal items, smoking policy, room service/diet, and visiting hours. Patient/Family are encouraged to report perceived risks to care and to ask questions if they do not understand what they are told or what they should do.
[2022-02-05 20:42] VITALS: BP 102/75; PULSE 100
--- NOTE | 2022-02-05 20:45 | PC.NURSE ---
Called Dr. Velasquez to inform her of pt admission. Informed that pt fell while playing basketball on her hands and knees. She then fell forward onto her belly. She states that she was having some cramping, but that has stopped and now just has some soreness in her lower abdomen. Pt is unsure of her due date, but states that her LMP was 09/06/21, making her 21.5 weeks . Tracing appropriate for gestational age and no contractions seen on monitor. Blooed type is O-. Pt states that her BP was elevated in ER with no repeat done there. BP here was 102/75. Orders received for labs and WNL, may D/C home. May return for Rhogam injection.
[2022-02-05 21:07] VITALS: BMI 46.6
[2022-02-05 21:11] LABS: Basophils Percent Auto 0.1 % (0.2-1.2); Eosinophils Percent Auto 0.4 % (0-4.4); Hematocrit 34.2 % (37.0-47.0); Hemoglobin 11.1 g/dL (12.0-15.0); Immature Granulocyte Absolute 0.02 K/mm3 (0.00-0.031); Immature Granulocyte Percent A 0.2 % (0-0.5); Lymphocytes Absolute Auto 1.13 K/mm3 (0.9-3.2); Lymphocytes Percent Auto 13.5 % (18.3-44.2); Mean Corpuscular HGB Conc 32.5 g/dl (32-36); Mean Corpuscular Hemoglobin 26.7 pg (26-34); Mean Corpuscular Volume 82.2 fl (80-100); Mean Platelet Volume 8.6 fl (7.4-10.4); Monocytes Absolute Auto 0.4 K/mm3 (0.1-0.6); Monocytes Percent Auto 5.1 % (2.6-8.5); Neutrophils Absolute Auto 6.8 K/mm3 (1.3-6.7); Neutrophils Percent Auto 80.7 % (45.5-73.1); Platelet Count Result 313 k/mm3 (150-375); Red Blood Count 4.16 M/mm3 (4.2-5.4); Red Cell Distribution Width 15.8 % (11.5-14.5); White Blood Count 8.4 K/mm3 (4.5-10.0)
[2022-02-05] MEDS: RHO(D) IMMUNE GLOBULIN 300 MCG/2 ML SYRINGE IM (23:05)
--- NOTE | 2022-02-20 10:57 | P.PNOB_ITS ---
OB - Triage/Final Diagnosis Visit Information Comments/Additional reasons for admission: I have assessed the risk for this patient, Brandie Torres, and determined that she would benefit from observation care. Evaluation Laboratory results: Laboratory Tests 02/05/22 02/05/22 20:59 21:00 WBC 8.4 RBC 4.16 L Hgb 11.1 L Hct 34.2 L MCV 82.2 MCH 26.7 MCHC 32.5 RDW 15.8 H Plt Count 313 MPV 8.6 Immature Gran % (Auto) 0.2 Neut % (Auto) 80.7 H Lymph % (Auto) 13.5 L [place] % (Auto) 5.1 Eos % (Auto) 0.4 Baso % (Auto) 0.1 L Lymph # (Auto) 1.13 [place] # (Auto) 0.4 Eos # (Auto) 0.0 Baso # (Auto) 0.0 Abs Immat Gran (auto) 0.02 Absolute Neuts (auto) 6.8 H Absolute Nucleated RBC 0.0 Nucleated RBC % 0.0 Blood Type O Negative Antibody Screen Negative Screen TNP Baby's Blood Type Not Reportable Baby's DAGOBERTO Not Reportable KB Hemoglobin Negative Doses of RhIg Required 1 Final Diagnosis (1) Status post fall: Code(s): Z91.81 - History of falling Status: Acute
== END 2022-02-05 23:09 | disposition home or self-care (01) ==
LOC: ANHED 20:01 → ANHOBPP 20:34
PROVIDERS: Admitting Provider Obstetrics & Gynecology; Emergency Provider Nurse Practitioner Family; Visit Provider Obstetrics & Gynecology
DX: O99.891 Other specified diseases and conditions complicating pregnancy (principal); S63.501A Unspecified sprain of right wrist, initial encounter; W19.XXXA Unspecified fall, initial encounter; Z3A.21 21 weeks gestation of pregnancy
CPT/HCPCS: 36415; 73110; 85025; 85460; 85461; 90384; 96372; 99285; G0378; J2790

== ENCOUNTER 2022-02-25 14:59 | Outpatient (CLI) | payer BC, MEDICAID, SELFPAY ==
--- NOTE | ~2022-02-25 | US_ITS ---
EXAMINATION: US OB follow up DATE: 02/25/2022 15:44 INDICATION: Viability and dating, unknown trimester TECHNIQUE: Real-time ultrasound of the pelvis was performed. The interpreting radiologist was not pre sent for the study. COMPARISON: None. FINDINGS: There is a single living fetus in breech presentation. The placenta is anterior. card iac activity and movement are noted. heart rate is 158 beats per minute (bpm). The amniot ic fluid index is subjectively normal. The following biometric data were obtained: Biparietal diameter (BPD): 5.6 cm; head circumference (HC): 21.7 cm; abdominal circumference (AC): 19 .7 cm; femur length (FL): 4.4 cm. These measurements are concordant. Estimated weight is 685 g +/- 102 g, which correlates with the 30th percentile when 06/13/2022 i s used as estimated date of delivery. As single measurements, these parameters are each equal to the following estimated gestational ages w ith ranges of +/- 2 standard deviations: BPD: 23 weeks 0 days +/- 1 weeks 5 days. HC: 23 weeks 5 days +/- 1 weeks 3 days. AC: 24 weeks 2 days +/- 2 weeks 1 days. FL: 24 weeks 5 days +/- 2 weeks 1 days. estimated gestational age based solely on measurements from this exam is 24 weeks 0 days +/- 1 weeks 5 days. IMPRESSION: 1. Single living fetus in breech presentation. 2. Estimated weight is 685 g +/- 102 g, which correlates with the 30th percentile when 2 is used as estimated date of delivery. 3. estimated gestational age based solely on measurements from this exam is 24 weeks 0 days +/- 1 weeks 5 days. Reviewed, dictated and finalized at location F. IMPRESSION: 1. Single living fetus in breech presentation. 2. Estimated weight is 685 g +/- 102 g, which correlates with the 30th pe rcentile when 06/13/2022 is used as estimated date of delivery. 3. estimated gestational age based solely on measurements from this exam is 24 weeks 0 days +/- 1 weeks 5 days.
== END 2022-02-25 15:00 | disposition home or self-care (01) ==
LOC: ANHIMG 15:02
PROVIDERS: PCP Family Medicine; Visit Provider Student in an Organized Health Care Education/Training Program
DX: Z36.87 Encounter for antenatal screening for uncertain dates (principal); Z3A.24 24 weeks gestation of pregnancy
CPT/HCPCS: 76816

== ENCOUNTER 2022-03-01 12:47 | Outpatient (CLI) | payer BC, MEDICAID, SELFPAY ==
[2022-03-01 13:20] LABS: Basophils Percent Auto 0.2 % (0.2-1.2); Eosinophils Percent Auto 0.3 % (0-4.4); Hematocrit 34.6 % (37.0-47.0); Hemoglobin 11.4 g/dL (12.0-15.0); Immature Granulocyte Absolute 0.03 K/mm3 (0.00-0.031); Immature Granulocyte Percent A 0.3 % (0-0.5); Lymphocytes Absolute Auto 1.21 K/mm3 (0.9-3.2); Lymphocytes Percent Auto 13.2 % (18.3-44.2); Mean Corpuscular HGB Conc 32.9 g/dl (32-36); Mean Corpuscular Hemoglobin 27.5 pg (26-34); Mean Corpuscular Volume 83.4 fl (80-100); Mean Platelet Volume 8.8 fl (7.4-10.4); Monocytes Absolute Auto 0.3 K/mm3 (0.1-0.6); Monocytes Percent Auto 3.7 % (2.6-8.5); Neutrophils Absolute Auto 7.5 K/mm3 (1.3-6.7); Neutrophils Percent Auto 82.3 % (45.5-73.1); Platelet Count Result 320 k/mm3 (150-375); Red Blood Count 4.15 M/mm3 (4.2-5.4); Red Cell Distribution Width 14.6 % (11.5-14.5); White Blood Count 9.1 K/mm3 (4.5-10.0)
[2022-03-01 13:39] LABS: Alanine Aminotransferase 8 U/L (4-35); Albumin Level 3.6 g/dL (3.5-5.1); Alkaline Phosphatase 98 U/L (38-126); Anion Gap 8 mmol/L (8-16); Aspartate Amino Transferase 14 U/L (14-36); Bilirubin,Total 0.2 mg/dL (0.2-1.3); Blood Urea Nitrogen 5 mg/dL (7-17); Carbon Dioxide 25 mmol/L (22-30); Chloride 103 mmol/L (98-107); Estimated Glomerular Filt Rate > 60; Glucose 140 mg/dL (65-110); Glucose 1 Hour PP 50gm Dose 140 mg/dL; Lactate Dehydrogenase 289 U/L (313-618); Potassium 3.9 mmol/L (3.4-5.0); Sodium 136 mmol/L (137-145); Uric Acid 3.2 mg/dL (2.5-7.5)
[2022-03-01 13:56] LABS: Total Volume 24 Hour Urine 1400 ml
[2022-03-01 13:57] LABS: Total Volume 24 Hour Urine 1400 ml
[2022-03-01 14:02] LABS: Vitamin D 25 Hydroxy 18.2 ng/mL
[2022-03-01 14:03] LABS: Total Protein Urine 24 Hr < 70 mg/24hr (28-141); Total Protein Urine Random < 5 mg/dL
[2022-03-01 14:06] LABS: Creatinine 24 Hour Urine 1.3 gm/24 (0.8-1.8); Creatinine Urine 96.8 mg/dL
[2022-03-01 14:06] LABS: Thyroid Stimulating Hormone 0.881 uIU/mL (0.465-4.680)
[2022-03-01 14:16] LABS: HIV 1/2 Ab P24 Ag Result Negative (Negative)
[2022-03-01 14:23] LABS: Hepatitis B Surface Antigen Negative (Negative); Rubella IgG Antibody 85.6 IU/ML
[2022-03-01 14:32] LABS: Hepatitis C Virus Antibody Negative (Negative)
[2022-03-04 09:14] LABS: Rapid Plasma Reagin Non-Reactive (NonReactive)
== END 2022-03-01 12:48 | disposition home or self-care (01) ==
PROVIDERS: PCP Family Medicine; Visit Provider Student in an Organized Health Care Education/Training Program
DX: O16.2 Unspecified maternal hypertension, second trimester (principal); Z3A.24 24 weeks gestation of pregnancy
CPT/HCPCS: 36415; 80053; 81050; 82306; 82570; 82947; 83615; 84156; 84443; 84550; 85025; 86592; 86703; 86762; 86787; 86803; 86850; 86880; 86900; 86901; 86902; 87086; 87088; 87340; G0432

== ENCOUNTER 2022-03-22 10:04 | Outpatient (CLI) | payer BC, MEDICAID, SELFPAY ==
[2022-03-22 10:43] LABS: Glucose Fasting Gestational 128 mg/dL (>/=95)
[2022-03-22 10:59] LABS: Hemoglobin A1C 5.8 % (<5.7)
== END 2022-03-22 10:05 | disposition home or self-care (01) ==
LOC: ANHLAB 10:06
PROVIDERS: PCP Family Medicine; Visit Provider Student in an Organized Health Care Education/Training Program
DX: R73.09 Other abnormal glucose (principal)
CPT/HCPCS: 36415; 82951; 82952; 83036

== ENCOUNTER 2022-04-12 23:48 | Emergency (ER) | payer BC, MEDICAID, SELFPAY ==
--- NOTE | ~2022-04-12 | XR_ITS ---
XR ankle RT min 3V 04/13/2022 00:37 INDICATION: Right ankle pain after fall PROCEDURE: 4 views right ankle COMPARISON: No prior studies for comparison. FINDINGS: Fracture, dislocation or subluxation is not identified. The soft tissues appear within norm al limits. No foreign bodies are identified. IMPRESSION: 1: NO ACUTE BONE OR JOINT ABNORMALITY IDENTIFIED. Reviewed, dictated and finalized at location A.
[2022-04-12 23:56] VITALS: BP 149/98; PULSE 110; RESP 14; TEMP 36.8; O2SAT 100
--- NOTE | 2022-04-13 00:08 | PC.NURSE ---
This RN called OB back, and RN reports she will come do toco monitoring in ED. Per Dr. Mena, OB RN reports pt just needs ankle examined in ED. Will notify Dr. Hays, EDP.
--- NOTE | 2022-04-13 00:45 | PC.NURSE ---
OB RN in ED to monitor fetus.
[2022-04-13 01:02] VITALS: BP 130/69; PULSE 109
[2022-04-13] MEDS: ACETAMINOPHEN 500 MG TABLET 1000 MG PO (01:04)
[2022-04-13 01:05] VITALS: BP 135/95; PULSE 112; RESP 18; O2SAT 97
[2022-04-13 01:08] LABS: Basophils Percent Auto 0.1 % (0.2-1.2); Eosinophils Percent Auto 0.1 % (0-4.4); Hematocrit 31.9 % (37.0-47.0); Hemoglobin 10.1 g/dL (12.0-15.0); Immature Granulocyte Absolute 0.02 K/mm3 (0.00-0.031); Immature Granulocyte Percent A 0.2 % (0-0.5); Lymphocytes Absolute Auto 1.15 K/mm3 (0.9-3.2); Lymphocytes Percent Auto 14.1 % (18.3-44.2); Mean Corpuscular HGB Conc 31.7 g/dl (32-36); Mean Corpuscular Hemoglobin 26.6 pg (26-34); Mean Corpuscular Volume 84.2 fl (80-100); Monocytes Absolute Auto 0.4 K/mm3 (0.1-0.6); Monocytes Percent Auto 5.3 % (2.6-8.5); Neutrophils Absolute Auto 6.6 K/mm3 (1.3-6.7); Neutrophils Percent Auto 80.2 % (45.5-73.1); Platelet Count Result 266 k/mm3 (150-375); Red Blood Count 3.79 M/mm3 (4.2-5.4); Red Cell Distribution Width 13.2 % (11.5-14.5); White Blood Count 8.2 K/mm3 (4.5-10.0)
--- NOTE | 2022-04-13 01:08 | ED.FALL ---
HPI - Fall General Chief Complaint: Fall Stated Complaint: Fall today at OB30wk,pelvic pain,R ankle/foot pain Time Seen by Provider: 04/13/22 00:05 Source: patient History of Present Illness HPI Narrative: Patient presents after a fall. Patient was at her OB exam she was standing off the exam table she rolled her ankle and fell onto her bottom side. She initially felt well was told to rest at home and take Tylenol. Over the course of the day she abdominal pain and ankle pain she contacted her OB in the evening, the ER to be evaluated patient presented to the ER few hours later. Patient complains of abdominal pain achy, intermittent, no radiation, no clear aggravating or alleviating factors. Patient also reports right ankle pain 8, constant, worse with walking around, no radiation. She denies any contractions denies any vaginal bleeding or discharge denies any free fluid from the vagina. Denies any focal numbness or weakness denies striking her head or any loss of consciousness she denies any nausea or vomiting. Related Data Home Medications Medication Instructions Recorded Confirmed acetaminophen 325 mg capsule 325 mg PO Q6H PRN Headache 08/01/21 08/01/21 (Tylenol) prenat.vits,naman,[id number]-[id number] 1 tablet PO DAILY 02/14/22 Allergies Allergy/AdvReac Type Severity Reaction Status Date / Time No Known Allergies Allergy Verified 04/13/22 00:01 Review of Systems Review of Systems: CONSTITUTIONAL: Denies fever, chills, or sweats. EYES: Denies visual changes, redness, or discharge. ENT: Denies rhinorrhea, congestion, sore throat, or otalgia. CARDIOVASCULAR: Denies chest pain, palpitations, or edema. RESPIRATORY: Denies cough or dyspnea. GASTROINTESTINAL: Denies nausea, vomiting, or diarrhea. GENITOURINARY: Denies dysuria or hematuria. SKIN: Denies rash or itching. MUSCULOSKELETAL: Denies back pain, or myalgia. NEUROLOGIC: Denies headache, numbness, dizziness, or weakness. PSYCHIATRIC: Denies anxiety or depression. All systems reviewed & are unremarkable except as noted in HPI and below PMFSH Past Medical History Medical History Anxiety and depression History of prediabetes Nonalcoholic liver disease, chronic Vaginal delivery x1 Surgical History Surgical History History of tonsillectomy and adenoidectomy 2016? Family History Family History Father Hypertension Asthma Mother , 06/2021 Diabetes mellitus Heart failure Kidney disease Hypertension Asthma Grandparent Diabetes mellitus Heart problem Other Patient's mother is Social History Social History Smoking status: Former smoker Tobacco type: cigarettes Additional smoking assessment comments: quit when she found out she was Alcohol intake: former Alcohol use details: heavy drinker prior to find out she is Substance use: never Additional occupation/education comments: [employer] Gender identity (if verbalized by the patient): Female Spiritual care concerns: No Exam Narrative: GENERAL: Well-appearing, well-nourished, and in no acute distress. HEAD: Normocephalic, atraumatic. EYES: PERRLA and EOMI. ENT: Nares clear, no rhinorrhea or epistaxis. Mucous membranes moist. NECK: Supple. No masses. No JVD CHEST: Clear to auscultation. No respiratory distress. No wheezes rales or rhonchi HEART: Regular rate and rhythm. No murmur heard. Normal peripheral pulses. ABDOMEN: Mild diffuse abdominal pain soft, nondistended EXTREMITIES: Normal range of motion. No edema. SKIN: Warm, dry, no rash. NEURO: No focal deficits. Alert and oriented x3. PSYCH: Normal mood and affect. Course Reevaluation(s) Reevaluation #1: Patient is feeling improved results and plan rev
[2022-04-13 01:31] LABS: Appearance Urine Clear (Clear); Bilirubin Urine 1+ (Negative); Blood Urine Negative (Negative); Color Urine Yellow (Yellow); Glucose Urine UA 2+ mg/dL (Negative); Ketones Urine 3+ mg/dL (Negative); Leukocyte Esterase Ur Trace LEU/UL (Negative); Nitrate Urine Negative (Negative); Protein Urine 1+ mg/dL (Negative); Specific Grav Ur 1.025 (1.001-1.035); pH Urine 6.5 (5.0-9.0)
[2022-04-13 01:36] LABS: Bacteria Urine Trace /hpf; Mucus Urine Few /lpf; Squamous Epithelial Cell Urine Moderate /hpf (Few)
[2022-04-13 01:42] LABS: Add Urine Microscopic? YES
[2022-04-13 02:06] LABS: Lipase 17 U/L (23-300)
[2022-04-13 02:08] VITALS: BP 134/90; PULSE 105; RESP 20; O2SAT 96
[2022-04-13 02:08] LABS: Alanine Aminotransferase 21 U/L (6-35); Albumin Level 3.2 g/dL (3.5-5.1); Alkaline Phosphatase 109 U/L (38-126); Anion Gap 2 mmol/L (8-16); Aspartate Amino Transferase 19 U/L (14-36); Bilirubin,Total 0.3 mg/dL (0.2-1.3); Blood Urea Nitrogen 6 mg/dL (7-17); Carbon Dioxide 28 mmol/L (22-30); Chloride 105 mmol/L (98-107); Estimated CRCL calculation 203 ml/min; Estimated Glomerular Filt Rate > 60; Glucose 190 mg/dL (65-110); Potassium 4.1 mmol/L (3.4-5.0); Sodium 135 mmol/L (137-145)
[2022-04-13 03:00] VITALS: BP 144/91; PULSE 101; RESP 18; O2SAT 98
== END 2022-04-13 03:00 | disposition home or self-care (01) ==
PROVIDERS: Emergency Provider Emergency Medicine; PCP Family Medicine
DX: O9A.213 Injury, poisoning and certain other consequences of external causes complicating pregnancy, third trimester (principal); S99.911A Unspecified injury of right ankle, initial encounter; R10.9 Unspecified abdominal pain; O99.343 Other mental disorders complicating pregnancy, third trimester; F41.9 Anxiety disorder, unspecified; F32.A Depression, unspecified; O99.613 Diseases of the digestive system complicating pregnancy, third trimester; K76.9 Liver disease, unspecified; Z87.891 Personal history of nicotine dependence; Z3A.30 30 weeks gestation of pregnancy; W17.89XA Other fall from one level to another, initial encounter
CPT/HCPCS: 36415; 73610; 80053; 81001; 83690; 85025; 99283; A9270

== ENCOUNTER 2022-04-13 07:33 | Outpatient (RCR) | payer BC, MEDICAID, SELFPAY ==
--- NOTE | ~2022-04-13 | US_ITS ---
US OB limited 04/13/2022 08:40 Indication: Status post fall. Pelvic pain. Procedure: High-resolution Limited obstetrical ultrasound Comparison: 02/25/2022 Findings: There is a single living intrauterine in vertex presentation. heart rate is 112 BPM. Placenta is anterior. Amniotic fluid is subjectively normal. The placenta is grossly normal , without suggestion of placenta abruption. However, ultrasound is not diagnostic of abruption since acute hemorrhage can be isoechoic to be placenta. Recommend clinical correlation. Placental margin to the cervix 13.7 cm. Impression: 1: Single living intrauterine in vertex presentation. 2: The placenta is grossly normal, without suggestion of placenta abruption. However, ultrasound is not diagnostic of abruption since acute hemorrhage can be isoechoic to be placenta. Recommend clinic al correlation. Reviewed, dictated and finalized at location A. Impression: 1: Single living intrauterine in vertex presentation. 2: The placenta is grossly normal, without suggestion of placenta abruption. H owever, ultrasound is not diagnostic of abruption since acute hemorrhage can be isoechoic to be placenta. Recommend clinical correlation.
[2022-04-13 08:55] VITALS: BP 127/52; PULSE 95
== END 2022-06-14 14:50 | disposition home or self-care (01) ==
LOC: ANHOBOP 07:33
PROVIDERS: PCP Family Medicine; Visit Provider Obstetrics & Gynecology
DX: O99.891 Other specified diseases and conditions complicating pregnancy (principal); W19.XXXA Unspecified fall, initial encounter; Z3A.30 30 weeks gestation of pregnancy
CPT/HCPCS: 59025; 76815

== ENCOUNTER 2022-04-17 14:54 | Observation (INO) | payer BC, MEDICAID, SELFPAY ==
[2022-04-17 15:16] VITALS: BP 123/76; PULSE 90
[2022-04-17 15:20] VITALS: BMI 46.7
--- NOTE | 2022-04-17 15:20 | OBADM ---
This patient, Brandie Torres, admitted to the OB room OB Post 115 for observation. Patient/family oriented to hospital policies and general routines including ID bracelet, bed and alarms, visiting hours, pain management, procedures, bathroom and other care routines, personal items, smoking policy, room service/diet, and visiting hours. Patient/Family are encouraged to report perceived risks to care and to ask questions if they do not understand what they are told or what they should do.
[2022-04-17 15:31] VITALS: BP 120/64; PULSE 99
[2022-04-17 15:46] VITALS: BP 123/69; PULSE 99
--- NOTE | 2022-05-13 11:33 | PM.OBTRLD ---
OB - Triage/Final Diagnosis Visit Information Comments/Additional reasons for admission: I have assessed the risk for this patient, Brandie Torres, and determined that she would benefit from observation care. Final Diagnosis (1) Pelvic pain affecting : Code(s): O26.899 - Other specified related conditions, unspecified trimester; R10.2 - Pelvic and perineal pain Status: Acute
== END 2022-04-17 16:35 | disposition home or self-care (01) ==
PROVIDERS: Admitting Provider Student in an Organized Health Care Education/Training Program; PCP Family Medicine; Visit Provider Student in an Organized Health Care Education/Training Program
DX: O26.893 Other specified pregnancy related conditions, third trimester (principal); R10.2 Pelvic and perineal pain; Z3A.31 31 weeks gestation of pregnancy
CPT/HCPCS: G0378; G0379

== ENCOUNTER 2022-05-03 10:28 | Observation (INO) | payer BC, MEDICAID, SELFPAY ==
[2022-05-03 11:10] VITALS: BMI 49.1
[2022-05-03 11:16] VITALS: BP 123/81; PULSE 101
[2022-05-03 11:31] VITALS: BP 115/74; PULSE 104
[2022-05-03 11:46] VITALS: BP 135/59; PULSE 107
[2022-05-03 12:01] VITALS: BP 111/57; PULSE 118
[2022-05-03 12:05] LABS: Appearance Urine Clear (Clear); Bilirubin Urine Negative (Negative); Blood Urine Negative (Negative); Color Urine Yellow (Yellow); Glucose Urine UA Negative (Negative); Ketones Urine 3+ mg/dL (Negative); Leukocyte Esterase Ur 2+ LEU/UL (Negative); Nitrate Urine Negative (Negative); Protein Urine Negative (Negative); Urobilinogen Urine 0.2 mg/dL (<2.0)
[2022-05-03 12:11] LABS: Bacteria Urine 1+ /hpf; Squamous Epithelial Cell Urine Many /hpf (Few)
--- NOTE | 2022-05-03 12:12 | PC.NURSE ---
1210- Spoke with Dr. Mena, orders to discharge home and increase fluid intake.
[2022-05-03 12:46] LABS: Add Urine Microscopic? YES
--- NOTE | 2022-06-11 17:05 | PM.OBTRLD ---
OB - Triage/Final Diagnosis Visit Information Comments/Additional reasons for admission: I have assessed the risk for this patient, Brandie Torres, and determined that she would benefit from observation care. Evaluation Laboratory results: Laboratory Tests 05/03/22 11:07 Urine Color Yellow Urine Appearance Clear Urine pH 7.0 Ur Specific [place] 1.010 Urine Protein Negative Urine Glucose (UA) Negative Urine Ketones 3+ H Ur Blood (Man) Negative Urine Nitrate Negative Urine Bilirubin Negative Urine Urobilinogen 0.2 Leukocyte Esterase Rfl 2+ H Urine RBC 3-5 H Urine WBC 7-9 H Ur Squamous Epith Cells Many H Urine Bacteria 1+ H Final Diagnosis (1) contractions: Code(s): O47.00 - False labor before 37 completed weeks of gestation, unspecified trimester Status: Acute
== END 2022-05-03 12:23 | disposition home or self-care (01) ==
PROVIDERS: Admitting Provider Student in an Organized Health Care Education/Training Program; PCP Family Medicine; Visit Provider Student in an Organized Health Care Education/Training Program
DX: O47.03 False labor before 37 completed weeks of gestation, third trimester (principal); Z3A.33 33 weeks gestation of pregnancy
CPT/HCPCS: 81001; 87086; 87088; G0378; G0379

== ENCOUNTER 2022-05-04 00:55 | Outpatient (CLI) | payer BC, MEDICAID, SELFPAY ==
[2022-05-04 01:23] VITALS: BP 130/66; PULSE 96
[2022-05-04 01:29] LABS: Glucose Point of Care 187 mg/dl (65-105)
[2022-05-04 01:30] VITALS: BP 117/65; PULSE 99
[2022-05-04 01:45] VITALS: BP 123/74; PULSE 99
== END 2022-05-04 01:50 | disposition home or self-care (01) ==
LOC: ANHOBOP 01:00 → ANHOBPP 01:01
PROVIDERS: PCP Family Medicine; Visit Provider Student in an Organized Health Care Education/Training Program
DX: R73.09 Other abnormal glucose (principal)
CPT/HCPCS: 59025; 82948; 99199

== ENCOUNTER 2022-05-16 23:09 | Observation (INO) | payer BC, MEDICAID, SELFPAY ==
[2022-05-16] VITALS (22 sets, daily range): BP systolic 123–160; BP diastolic 74–100; PULSE 83–123; RESP 12–34; TEMP 36.5; O2SAT 97–100; BMI 49.1
--- NOTE | ~2022-05-16 | XR_ITS ---
EXAMINATION: XR chest 1V portable 05/16/2022 20:44 INDICATION: Shortness of breath and dizziness PROCEDURE: AP portable chest COMPARISON: Comparison to multiple prior studies sequentially, with oldest reviewed study dated 04/17. FINDINGS: The lungs are clear. The cardiomediastinal silhouette is within normal limits. There are no pleural effusions. There is no pneumothorax suspected. IMPRESSION: 1: NO ACUTE CARDIOPULMONARY DISEASE. Reviewed, dictated and finalized at location A.
--- NOTE | 2022-05-16 20:32 | ECG_ITS ---
Measurements Intervals [place] Rate: 86 P: 12 AK: 138 QRS: 11 QRSD: 101 T: 17 QT: 369 QTc: 443 Interpretive Statements SINUS RHYTHM VOLTAGE CRITERIA FOR LVH MINIMAL Q WAVES- HIGH LATERAL LEADS BORDERLINE T WAVE ABNORMALITY- INFERIOR LEADS BORDERLINE ECG Electronically Signed On 05-17-2022 4:00:21 CDT by Jaquan Bettencourt D.O.
[2022-05-16 21:14] LABS: Lipase 18 U/L (23-300); Magnesium 1.8 mg/dL (1.6-2.3)
[2022-05-16 21:14] LABS: INR 0.9; Partial Thromboplastin Time 23.6 SECONDS (22.3-36.8); Prothrombin Time 12.1 Seconds (11.1-14.7)
[2022-05-16 21:15] LABS: Alanine Aminotransferase 10 U/L (6-35); Alkaline Phosphatase 135 U/L (38-126); Anion Gap 5 mmol/L (8-16); Aspartate Amino Transferase 15 U/L (14-36); Bilirubin,Total 0.4 mg/dL (0.2-1.3); Blood Urea Nitrogen 6 mg/dL (7-17); Calcium 8.4 mg/dL (8.4-10.2); Carbon Dioxide 25 mmol/L (22-30); Chloride 104 mmol/L (98-107); Estimated CRCL calculation 252 ml/min; Estimated Glomerular Filt Rate > 60; Glucose 115 mg/dL (65-110); Lactate Dehydrogenase 347 U/L (313-618); Potassium 3.6 mmol/L (3.4-5.0); Sodium 134 mmol/L (137-145); Uric Acid 3.1 mg/dL (2.5-7.5)
[2022-05-16 21:15] LABS: Lactic Acid Reflex 1.1 mmol/L (0.7-2.0)
[2022-05-16] MEDS: METOCLOPRAMIDE HCL INJ 10 MG/2 ML VIAL IV PUSH (21:15)
[2022-05-16] MEDS: diphenhydrAMINE HCl INJ 50 MG/ML VIAL 25 MG IV PUSH (21:15)
[2022-05-16] MEDS: LACTATED RINGERS 1,000 ML 999 ML IV CONT (21:18)
[2022-05-16 21:27] LABS: Eosinophils Percent Auto 0.4 % (0-4.4); Hematocrit 30.1 % (37.0-47.0); Hemoglobin 9.7 g/dL (12.0-15.0); Immature Granulocyte Absolute 0.03 K/mm3 (0.00-0.031); Immature Granulocyte Percent A 0.4 % (0-0.5); Lymphocytes Absolute Auto 1.47 K/mm3 (0.9-3.2); Lymphocytes Percent Auto 20.2 % (18.3-44.2); Mean Corpuscular HGB Conc 32.2 g/dl (32-36); Mean Corpuscular Hemoglobin 25.3 pg (26-34); Mean Corpuscular Volume 78.4 fl (80-100); Mean Platelet Volume 10.1 fl (7.4-10.4); Monocytes Absolute Auto 0.5 K/mm3 (0.1-0.6); Monocytes Percent Auto 6.2 % (2.6-8.5); Neutrophils Absolute Auto 5.3 K/mm3 (1.3-6.7); Neutrophils Percent Auto 72.8 % (45.5-73.1); Platelet Count Result 241 k/mm3 (150-375); Red Blood Count 3.84 M/mm3 (4.2-5.4); Red Cell Distribution Width 13.2 % (11.5-14.5); Troponin I < 0.012 ng/mL (0.000-0.034); White Blood Count 7.3 K/mm3 (4.5-10.0)
--- NOTE | 2022-05-16 21:31 | ED.GENADULT ---
HPI - General Adult General Chief complaint: Headache Stated complaint: cramping right leg, headache, dizzy Time Seen by Provider: 05/16/22 20:26 Source: patient, RN notes reviewed and old records reviewed Mode of arrival: ambulatory Limitations: no limitations History of Present Illness HPI narrative: This is a 21 year old female [place] 35 weeks who presents for multiple complaints. Patient reports nausea and vomiting intermittent for 2 days. She also reports intermittent dizziness with standing. She reports having emesis today. She states tonight she developed dizziness again. She also reports left frontal throbbing headache as well. She denies blurred vision or focal weakness. She denies fever or chills. She has intermittent lower abdominal pain but she denies any pain now. She last felt pain 15 minutes ago but no pain now. She also reports right leg cramping. She has been following with her doctors regarding right leg pain. She reports bilateral leg swelling due to her . She denies chest pain or sob. Related Data Home Medications Medication Instructions Recorded Confirmed acetaminophen 325 mg capsule 325 mg PO Q6H PRN Headache 08/01/21 05/03/22 (Tylenol) prenat.vits,naman,shw-yyhi-bepge 1 tablet PO DAILY 02/14/22 05/03/22 Allergies Allergy/AdvReac Type Severity Reaction Status Date / Time No Known Allergies Allergy Verified 05/16/22 20:13 [facility] Past Medical History Medical History Anxiety and depression History of prediabetes Nonalcoholic liver disease, chronic Vaginal delivery x1 Surgical History Surgical History History of tonsillectomy and adenoidectomy 2016? Family History Family History Father Hypertension Asthma Mother , 06/2021 Diabetes mellitus Heart failure Kidney disease Hypertension Asthma Grandparent Diabetes mellitus Heart problem Other Patient's mother is Social History Social History Smoking status: Former smoker Tobacco type: cigarettes Additional smoking assessment comments: quit when she found out she was Alcohol intake: former Alcohol use details: heavy drinker prior to find out she is Substance use: never Additional occupation/education comments: [employer] Gender identity (if verbalized by the patient): Female Spiritual care concerns: No Course Reevaluation(s) Reevaluation #1: PAtient reports her nausea has improved but she is still nauseated. HEr headache has improved. She has history of chronic headaches. Patient has BP that is intermittently elevated so she will need monitoring. I spoke with Dr. Velasquez who states to send patient to Labor and delivery for evaluation. She understands patient will need ultrasound of right leg tomorrow. PAtient is aware of decision to send to labor and delivery. Date: 05/16/22 Time: 22:30 Vital Signs Vital signs: Vital Signs Temperature 97.7 F 05/16/22 20:24 Pulse Rate 114 H 05/16/22 20:24 Respiratory Rate 20 05/16/22 20:24 Blood Pressure 149/100 H 05/16/22 20:24 Pulse Oximetry 100 05/16/22 20:24 Oxygen Delivery Room Air 05/16/22 20:24 Temperature 97.7 F 05/16/22 20:24 Pulse Rate 96 05/16/22 21:46 Respiratory Rate 21 H 05/16/22 21:46 Blood Pressure 142/92 H 05/16/22 21:45 Pulse Oximetry 97 05/16/22 21:46 Oxygen Delivery Room Air 05/16/22 20:24 Medical Decision Making Vital Signs Vital Signs: Vital Signs Temperature 97.7 F 05/16/22 20:24 Pulse Rate 114 H 05/16/22 20:24 Respiratory Rate 20 05/16/22 20:24 Blood Pressure 149/100 H 05/16/22 20:24 Pulse Oximetry 100 05/16/22 20:24 Oxygen Delivery Room Air 05/16/22 20:24 Temperature 97.7 F 07
[2022-05-16] MEDS: ONDANSETRON INJ 4 MG/2 ML VIAL IV PUSH (22:07)
[2022-05-16 23:53] LABS: Appearance Urine Clear (Clear); Bilirubin Urine 1+ (Negative); Blood Urine Negative (Negative); Color Urine Yellow (Yellow); Glucose Urine UA Trace mg/dL (Negative); Ketones Urine Negative (Negative); Leukocyte Esterase Ur 1+ LEU/UL (Negative); Nitrate Urine Negative (Negative); Protein Urine 1+ mg/dL (Negative); Specific Grav Ur 1.025 (1.001-1.035); pH Urine 6.5 (5.0-9.0)
[2022-05-17] VITALS: BP 147/85; PULSE 78
[2022-05-17] LABS: Creatinine Urine 210.3 mg/dL; Total Protein Urine Random 10 mg/dL; Ur Ttl Prot Creatinine Ratio 0.05 mg/mg (0-0.20)
[2022-05-17 00:05] LABS: Bacteria Urine 1+ /hpf; Mucus Urine Heavy /lpf; RBC Urine 21-50 /hpf (0-2); Squamous Epithelial Cell Urine Many /hpf (Few); WBC Urine 21-30 /hpf
[2022-05-17 00:06] LABS: Add Urine Microscopic? YES
[2022-05-17 00:10] VITALS: BP 147/85; PULSE 88
--- NOTE | 2022-06-12 09:54 | PM.OBTRLD ---
OB - Triage/Final Diagnosis Visit Information Comments/Additional reasons for admission: I have assessed the risk for this patient, Brandie Torres, and determined that she would benefit from observation care. Evaluation Laboratory results: Laboratory Tests 05/16/22 05/16/22 05/16/22 20:47 20:47 20:48 WBC 7.3 RBC 3.84 L Hgb 9.7 L Hct 30.1 L MCV 78.4 L MCH 25.3 L MCHC 32.2 RDW 13.2 Plt Count 241 MPV 10.1 Immature Gran % (Auto) 0.4 Neut % (Auto) 72.8 Lymph % (Auto) 20.2 [place] % (Auto) 6.2 Eos % (Auto) 0.4 Baso % (Auto) 0.0 L Lymph # (Auto) 1.47 [place] # (Auto) 0.5 Eos # (Auto) 0.0 Baso # (Auto) 0.0 Abs Immat Gran (auto) 0.03 Absolute Neuts (auto) 5.3 Absolute Nucleated RBC 0.0 Nucleated RBC % 0.0 PT 12.1 INR 0.9 APTT 23.6 Sodium 134 L Potassium 3.6 Chloride 104 Carbon Dioxide 25 Anion Gap 5 L BUN 6 L Creatinine 0.40 L Estim Creat Clear Calc 252 Estimated GFR > 60 Glucose 115 H Lactic Acid Uric Acid 3.1 Calcium 8.4 Magnesium Total Bilirubin 0.4 AST 15 ALT 10 Alkaline Phosphatase 135 H Lactate Dehydrogenase 347 Troponin I Total Protein 6.0 L Albumin 3.0 L Lipase Urine Color Urine Appearance Urine pH Ur Specific [place] Urine Protein Urine Glucose (UA) Urine Ketones Ur Blood (Man) Urine Nitrate Urine Bilirubin Urine Urobilinogen Leukocyte Esterase Rfl Urine RBC Urine WBC Ur Squamous Epith Cells Urine Bacteria Urine Mucus U Random Total Protein Urine Creatinine Protein/Creat Ratio 2 05/16/22 05/16/22 05/16/22 20:48 20:48 23:41 WBC RBC Hgb Hct MCV MCH MCHC RDW Plt Count MPV Immature Gran % (Auto) Neut % (Auto) Lymph % (Auto) [place] % (Auto) Eos % (Auto) Baso % (Auto) Lymph # (Auto) [place] # (Auto) Eos # (Auto) Baso # (Auto) Abs Immat Gran (auto) Absolute Neuts (auto) Absolute Nucleated RBC Nucleated RBC % PT INR APTT Sodium Potassium Chloride Carbon Dioxide Anion Gap BUN Creatinine Estim Creat Clear Calc Estimated GFR Glucose Lactic Acid 1.1 Uric Acid Calcium Magnesium 1.8 Total Bilirubin AST ALT Alkaline Phosphatase Lactate Dehydrogenase Troponin I < 0.012 Total Protein Albumin Lipase 18 L Urine Color Yellow Urine Appearance Clear Urine pH 6.5 Ur Specific [place] 1.025 Urine Protein 1+ H Urine Glucose (UA) Trace H Urine Ketones Negative Ur Blood (Man) Negative Urine Nitrate Negative Urine Bilirubin 1+ H Urine Urobilinogen 1.0 Leukocyte Esterase Rfl 1+ H Urine RBC 21-50 H Urine WBC 21-30 H Ur Squamous Epith Cells Many H Urine Bacteria 1+ H Urine Mucus Heavy H U Random Total Protein Urine Creatinine Protein/Creat Ratio 2 05/16/22 23:41 WBC RBC Hgb Hct MCV MCH MCHC RDW Plt Count MPV Immature Gran % (Auto) Neut % (Auto) Lymph % (Auto) [place] % (Auto) Eos % (Auto) Baso % (Auto) Lymph # (Auto) [place] # (Auto) Eos # (Auto) Baso # (Auto) Abs Immat Gran (auto) Absolute Neuts (auto) Absolute Nucleated RBC Nucleated RBC % PT INR APTT Sodium Potassium Chloride Carbon Dioxide Anion Gap BUN Creatinine Estim Creat Clear Calc Estimated GFR Glucose Lactic Acid Uric Acid Calcium Magnesium Total Bilirubin AST ALT Alkaline Phosphatase Lactate Dehydrogenase Troponin I Total Protein Albumin Lipase Urine Color Urine Appearance Urine pH Ur Specific [place] Urine Protein Urine Glucose (UA) Urine Ketones Ur Blood (Man) Urine Nitrate Urine Bilirubin Urine Urobilinogen Leukocyte Esterase Rfl Urine RBC Urine WBC Ur Squamous Epith Cells Urine Bacteria Urin
== END 2022-05-17 00:55 | disposition home or self-care (01) ==
LOC: ANHOBOP 23:22 → ANHOBPP 23:23
PROVIDERS: Admitting Provider Obstetrics & Gynecology; PCP Family Medicine; Visit Provider General Practice
DX: O16.3 Unspecified maternal hypertension, third trimester (principal); O21.9 Vomiting of pregnancy, unspecified; O26.893 Other specified pregnancy related conditions, third trimester; R51.9 Headache, unspecified; R25.2 Cramp and spasm; Z3A.35 35 weeks gestation of pregnancy; Z79.899 Other long term (current) drug therapy
CPT/HCPCS: 36415; 59025; 71045; 80053; 81001; 82570; 83605; 83615; 83690; 83735; 84156; 84484; 84550; 85025; 85610; 85730; 87086; 87088; 93005; G0378; J0131; J1200; J2405; J2765; J7120

== ENCOUNTER 2022-05-20 13:13 | Outpatient (NON) | payer BC, MEDICAID, SELFPAY ==
[2022-05-20 13:27] VITALS: BMI 49.1
[2022-05-20 13:49] LABS: Collection Time Urine 24 HOURS
[2022-05-20 13:54] LABS: Total Volume 24 Hour Urine 1600 ml
[2022-05-20 13:57] LABS: Total Volume 24 Hour Urine 1600 ml
[2022-05-20 14:21] LABS: Total Protein Urine 24 Hr 192 mg/24hr (28-141); Total Protein Urine Random 12 mg/dL
[2022-05-20 14:21] LABS: Creatinine Urine 68.7 mg/dL; Patient Weight 295 Lbs
== END 2022-05-20 13:14 | disposition home or self-care (01) ==
LOC: ANHOBOP 13:18
PROVIDERS: PCP Family Medicine; Visit Provider Obstetrics & Gynecology
DX: O16.9 Unspecified maternal hypertension, unspecified trimester (principal); Z3A.00 Weeks of gestation of pregnancy not specified
CPT/HCPCS: 81050; 82575; 84156

== ENCOUNTER 2022-05-20 13:28 | Outpatient (CLI) | payer BC, MEDICAID, SELFPAY ==
[2022-05-20 14:23] LABS: Basophils Percent Auto 0.1 % (0.2-1.2); Eosinophils Percent Auto 0.4 % (0-4.4); Hematocrit 28.8 % (37.0-47.0); Immature Granulocyte Absolute 0.02 K/mm3 (0.00-0.031); Immature Granulocyte Percent A 0.3 % (0-0.5); Lymphocytes Absolute Auto 1.12 K/mm3 (0.9-3.2); Lymphocytes Percent Auto 16.2 % (18.3-44.2); Mean Corpuscular HGB Conc 31.3 g/dl (32-36); Mean Corpuscular Hemoglobin 25.4 pg (26-34); Mean Corpuscular Volume 81.4 fl (80-100); Monocytes Absolute Auto 0.3 K/mm3 (0.1-0.6); Monocytes Percent Auto 4.5 % (2.6-8.5); Neutrophils Absolute Auto 5.4 K/mm3 (1.3-6.7); Neutrophils Percent Auto 78.5 % (45.5-73.1); Platelet Count Result 216 k/mm3 (150-375); Red Blood Count 3.54 M/mm3 (4.2-5.4); Red Cell Distribution Width 13.3 % (11.5-14.5); White Blood Count 6.9 K/mm3 (4.5-10.0)
[2022-05-20 15:29] LABS: HIV 1/2 Ab P24 Ag Result Negative (Negative)
[2022-05-21 06:15] LABS: Rapid Plasma Reagin Non-Reactive (NonReactive)
== END 2022-05-20 13:29 | disposition home or self-care (01) ==
LOC: ANHLAB 13:30
PROVIDERS: PCP Family Medicine; Visit Provider Student in an Organized Health Care Education/Training Program
DX: O09.93 Supervision of high risk pregnancy, unspecified, third trimester (principal); Z3A.36 36 weeks gestation of pregnancy
CPT/HCPCS: 36415; 85025; 86592; 86703; G0432

== ENCOUNTER 2022-05-23 22:04 | Inpatient (IN) | payer BC, MEDICAID, SELFPAY ==
[2022-05-23 22:22] VITALS: BP 137/83; PULSE 97; TEMP 36.7
[2022-05-23 22:31] VITALS: BP 141/81; PULSE 91
[2022-05-23 22:41] LABS: Glucose Point of Care 86 mg/dl (65-105)
[2022-05-23 22:47] VITALS: BP 139/81; PULSE 109
[2022-05-23 23:02] VITALS: BP 131/73; PULSE 110
[2022-05-23 23:17] VITALS: BP 118/70; PULSE 96
[2022-05-23 23:46] VITALS: BP 121/64; PULSE 96
[2022-05-24] VITALS (182 sets, daily range): BP systolic 100–167; BP diastolic 44–122; PULSE 65–144; RESP 18–20; TEMP 36.2–36.7; O2SAT 91–100; BMI 49.1
[2022-05-24 01:30] LABS: Basophils Percent Auto 0.1 % (0.2-1.2); Eosinophils Percent Auto 0.5 % (0-4.4); Hematocrit 28.9 % (37.0-47.0); Hemoglobin 8.9 g/dL (12.0-15.0); Immature Granulocyte Absolute 0.02 K/mm3 (0.00-0.031); Immature Granulocyte Percent A 0.2 % (0-0.5); Lymphocytes Absolute Auto 1.51 K/mm3 (0.9-3.2); Lymphocytes Percent Auto 18.5 % (18.3-44.2); Mean Corpuscular HGB Conc 30.8 g/dl (32-36); Mean Corpuscular Hemoglobin 24.9 pg (26-34); Mean Corpuscular Volume 80.7 fl (80-100); Mean Platelet Volume 10.1 fl (7.4-10.4); Monocytes Absolute Auto 0.4 K/mm3 (0.1-0.6); Neutrophils Absolute Auto 6.2 K/mm3 (1.3-6.7); Neutrophils Percent Auto 75.7 % (45.5-73.1); Platelet Count Result 224 k/mm3 (150-375); Red Blood Count 3.58 M/mm3 (4.2-5.4); Red Cell Distribution Width 13.2 % (11.5-14.5); White Blood Count 8.2 K/mm3 (4.5-10.0)
--- NOTE | 2022-05-24 01:34 | LDADM ---
This patient, Brandie Torres, was admitted to Labor/Delivery/Recovery 106 on 05/24/22 at 00:40. Plans for labor, pain management and were discussed with patient. Patient/family oriented to hospital policies and general routines including ID bracelet, bed and alarms, visiting hours, pain management, procedures, bathroom and other care routines, personal items, smoking policy, room service/diet and guest tray routines, security routines, and visiting hours. Patient/Family are encouraged to report perceived risks to care and to ask questions if they do not understand what they are told or what they should do. See OBIX for further documentation.
[2022-05-24 02:25] LABS: Glucose Point of Care 95 mg/dl (65-105)
[2022-05-24] MEDS: LACTATED RINGERS 1,000 ML 125 ML IV CONT ×2 (03:59→04:52)
[2022-05-24] MEDS: AMPICILLIN 2 GM/NS 100 ML 2 GM/100 ML BAG IVPB (04:15)
--- NOTE | 2022-05-24 04:26 | WPDANESEPP ---
Anes - Eval Pre Procedure Procedure: Labor epidural Date/Time: 05/24/22 04:26 Pre Op Diagnosis: CTX, dizziness Patient Data Age: 21 Gender: F Height: 1.65 m Weight: 134 kg Last Vital Signs Temp 36.6 C 05/24/22 02:30 Pulse 87 05/24/22 04:17 BP 128/74 05/24/22 04:17 Pulse Ox 99 05/24/22 04:25 O2 Del Method Room Air 05/24/22 01:31 Allergies Allergy/AdvReac Type Severity Reaction Status Date / Time No Known Allergies Allergy Verified 05/16/22 20:13 Home Medications Medication Instructions Recorded Confirmed Type acetaminophen 325 mg capsule 325 mg PO Q6H PRN Headache 08/01/21 05/23/22 History (Tylenol) prenat.vits,naman,[id number]-[id number] 1 tablet PO DAILY 02/14/22 05/23/22 History sertraline 50 mg tablet 50 mg PO DAILY #90 tabs 03/15/22 05/23/22 Rx alcohol swabs (Alcohol Prep Pads) 1 pad topical .COMPLEX #100 ea 03/28/22 05/23/22 Rx blood sugar diagnostic (ReliOn #100 ea 03/28/22 05/03/22 Rx Prime Test Strips) lancets 33 gauge (BD Ultra Fine #100 ea 03/28/22 05/03/22 Rx Lancets) insulin detemir U-100 100 unit/mL 14 unit subcut HS 05/16/22 05/23/22 History (3 mL) subcutaneous pen (Levemir FlexTouch U-100 Insulin) insulin lispro 200 unit/mL (3 mL) 4 unit subcut TIDWM 05/16/22 05/23/22 History subcutaneous pen (Humalog KwikPen U-200 Insulin) insulin lispro 200 unit/mL (3 mL) 6 unit subcut HS 05/16/22 05/23/22 History subcutaneous pen (Humalog KwikPen U-200 Insulin) ferrous sulfate 325 mg (65 mg 325 mg PO DAILY #90 tabs 05/21/22 05/23/22 Rx iron) tablet Laboratory Tests 05/23/22 05/24/22 05/24/22 22:23 01:24 01:24 WBC 8.2 K/mm3 K/mm3 (4.5-10.0) RBC 3.58 M/mm3 L M/mm3 (4.2-5.4) Hgb 8.9 g/dL L g/dL (12.0-15.0) Hct 28.9 % L % (37.0-47.0) MCV 80.7 fl fl (80-100) MCH 24.9 pg L pg (26-34) MCHC 30.8 g/dl L g/dl (32-36) RDW 13.2 % % (11.5-14.5) Plt Count 224 k/mm3 k/mm3 (150-375) MPV 10.1 fl fl (7.4-10.4) Immature Gran % (Auto) 0.2 % % (0-0.5) Neut % (Auto) 75.7 % H % (45.5-73.1) Lymph % (Auto) 18.5 % % (18.3-44.2) [place] % (Auto) 5.0 % % (2.6-8.5) Eos % (Auto) 0.5 % % (0-4.4) Baso % (Auto) 0.1 % L % (0.2-1.2) Lymph # (Auto) 1.51 K/mm3 K/mm3 (0.9-3.2) [place] # (Auto) 0.4 K/mm3 K/mm3 (0.1-0.6) Eos # (Auto) 0.0 K/mm3 K/mm3 (0-0.3) Baso # (Auto) 0.0 K/mm3 K/mm3 (0.0-0.1) Abs Immat Gran (auto) 0.02 K/mm3 K/mm3 (0.00-0.031) Absolute Neuts (auto) 6.2 K/mm3 K/mm3 (1.3-6.7) Absolute Nucleated RBC 0.0 K/mm3 K/mm3 (0.0-0.012) Nucleated RBC % 0.0 % % (0.0-0.2) POC Capillary Glucose 86 mg/dl mg/dl (65-105) RPR Pending Blood Type Antibody Screen 05/24/22 05/24/22 01:24 02:22 WBC RBC Hgb Hct MCV MCH MCHC RDW Plt Count MPV Immature Gran % (Auto) Neut % (Auto) Lymph % (Auto) [place] % (Auto) Eos % (Auto) Baso % (Auto) Lymph # (Auto) [place] # (Auto) Eos # (Auto) Baso # (Auto) Abs Immat Gran (auto) Absolute Neuts (auto) Absolute Nucleated RBC Nucleated RBC % POC Capillary Glucose 95 mg/dl mg/dl (65-105) RPR Blood Type O Negative Antibody Screen Negative Patient hx anesthesia problems: none Family hx anesthesia problems: none Results Review: All pre-operative results and documents have been reviewed as part of the pre-operative evaluation. [facility] Past Medical History Medical History Anxiety and depression History of prediabetes
[2022-05-24 05:56] LABS: Glucose Point of Care 99 mg/dl (65-105)
[2022-05-24 07:31] LABS: Glucose Point of Care 86 mg/dl (65-105)
[2022-05-24] MEDS: AMPICILLIN 1 GM/NS 50 ML 1 GM/50 ML BAG IVPB (07:58)
[2022-05-24] MEDS: OXYTOCIN 30 UNITS/NS 500 ML 30 UNITS/500 ML BAG IV CONT (08:15)
[2022-05-24 08:40] LABS: Rapid Plasma Reagin Non-Reactive (NonReactive)
[2022-05-24 09:14] LABS: Glucose Point of Care 88 mg/dl (65-105)
--- NOTE | 2022-05-24 10:32 | PM.IMHP ---
H&P: HPI History of Present Illness Date/Time: 05/24/22 10:32 Chief Complaint: Contractions Narrative: Patient is a 21-year-old LMP uncertain at beginning of September 2021 currently 36 weeks 4 days gestation with KYLEE 06/17/2022. Patient is dated by ultrasound on 02/25/2022 at 24 weeks gestation. Patient presented to Labor and delivery complaints of contractions. Patient reported onset of contractions yesterday afternoon at approximately 1:00 p.m. States that contractions increased in frequency and intensity throughout yesterday afternoon and evening. Upon presentation to Labor and delivery, patient was noted to be approximately 4-5 cm dilated. Patient was observed and made cervical change. Decision was made to admit patient in labor. Denies any vaginal bleeding or leakage of fluid. Reports good movement. complicated by late initiation of care. Patient also diagnosed with gestational diabetes, however, concern for pregestational diabetes. Patient was being followed by [facility] educator, however, noncompliance has been an issue. Review of Systems Review of Systems: All systems reviewed & are unremarkable except as noted in HPI and below Constitutional: Constitutional: Reports as per HPI and Reports no additional constitutional complaints Eyes: Eyes: Reports as per HPI and Reports no additional eye complaints ENT: Reports system reviewed and no additional complaints, except as documented and Reports as per HPI Cardiovascular: Cardiovascular: Reports as per HPI and Reports no additional cardiovascular complaints Respiratory: Respiratory: Reports as per HPI and Reports no additional respiratory complaints Gastrointestinal: Gastrointestinal: Reports as per HPI and Reports no additional gastrointestinal complaints Genitourinary: Genitourinary: Reports no additional female genitourinary complaints and Reports as per HPI Musculoskeletal: Musculoskeletal: Reports no additional musculoskeletal complaints and Reports as per HPI Integumentary/Breasts: Skin/Breast: Reports system reviewed and no additional complaints, except as docu and Reports as per HPI Neurologic: Reports system reviewed and no additional complaints, except as documented and Reports as per HPI Psychiatric: Psychiatric: Reports no additional psychiatric complaints and Reports as per HPI Endocrine: Endocrine: Reports no additional endocrine complaints and Reports as per HPI Hematologic/Lymphatic: Hematologic/Lymphatic: Reports no additional hematologic/lymphatic complaints and Reports as per HPI Allergic/Immunologic: Allergic/Immunologic: Reports no additional allergic/immunologic complaints and Reports as per HPI [facility] Past Medical History Medical History Anxiety and depression History of prediabetes Nonalcoholic liver disease, chronic Vaginal delivery x1 Surgical History Surgical History History of tonsillectomy and adenoidectomy 2016? Family History Family History Father Hypertension Asthma Mother , 06/2021 Diabetes mellitus Heart failure Kidney disease Hypertension Asthma Grandparent Diabetes mellitus Heart problem Other Patient's mother is Social History Social History Smoking status: Former smoker Tobacco type: cigarettes Second hand tobacco smoke exposure: No Smoking end date: 10/03/21 Additional smoking assessment comments: quit when she found out she was Alcohol intake: former Alcohol use details: heavy drinker prior to find out she is Substance use: never Additional occupation/education comments: [employer] Gender identity (if verbalized by the patient): Female Spiritual care concerns: No Meds Home Medicati
[2022-05-24 11:15] LABS: Glucose Point of Care 87 mg/dl (65-105)
[2022-05-24] MEDS: OXYTOCIN 30 UNITS/NS 500 ML 30 UNITS/500 ML BAG 125 UNITS IV CONT (12:33)
--- NOTE | 2022-05-24 12:43 | P.PCNOB_ITS ---
OB - Delivery Note Procedure Delivery date: 05/24/22 Procedure: The patient is a 21-year-old now who presented to labor and delivery during the [employer] of 05/24/2022 at 36 weeks 4 days gestation in labor. Patient was admitted to labor and delivery. Antibiotics were started for unknown GBS status. Patient was allowed to progress on own and made slow cervical change. She became uncomfortable and requested an epidural for pain management which was placed without difficulty. Pitocin was started for labor augmentation. Artificial rupture of membranes was performed at 10:53 a.m. A copious amount of clear amniotic fluid was noted. Pitocin was continued and p atient was noted to be fully dilated at 11:48 a.m. Patient was prepped and draped for delivery. At 11:58 a.m., patient was encouraged to push and delivered infant head atraumatically and without difficulty and direct OA presentation. Occiput restituted to maternal left side. With subsequent push, the infant's neck, shoulders, and rest of body delivered without difficulty. Infant was crying spontaneously. Infant's nose and mouth were suctioned with bulb suction. A relatively short cord was noted. Delayed cord clamping was performed for approximately 60 seconds. Cord was clamped and cut and infant was placed on maternal abdomen where care was assumed by awaiting nursing staff. A segment of cord was collected for cord gases. Cord blood was collected. The placenta was delivered spontaneously and intact. Uterine fundus was noted to be firm with massage. On inspection, a superficial perineal laceration was noted. This laceration was repaired with 3-0 Vicryl in the usual fashion. Excellent hemostasis was noted. Estimated blood loss for entire delivery was 100 cc. Infant was a liveborn female infant, Apgars 7 and 9, weighing 7 lbs. 1 oz. Events: Gestational Diabetes and Other (Late entry to care, noncompliance, labor) Delivery augmentation: Rupture of Membranes and Pitocin Delivery monitor: External FHT, External Uterine and Internal Uterine Route of delivery: Laceration Description: Superficial (perineal) Delivery repair: vicryl (3-0 vicryl) Specimen: Yes (placenta and cord, cord blood and cord gases) Quantitative Blood Loss (ml): 100 Anesthesia type: Epidural Disposition: Floor Complications: No immediate complications Baby Date of : 05/24/22 Time of : 11:58 Weeks of gestation at delivery: 36 (36.4) gender: Female Weight (pounds): 7 Weight (ounces): 1 presentation: vertex position: Other (direct OA) Placenta delivery description: Spontaneous Cord Vessel Description: 3 Vessels score one minute: 7 score five minutes: 9 AMG Delivery Billing Delivery Delivery: Delivery Charge
[2022-05-24] MEDS: WITCH HAZEL 40 PADS 1 PAD TOPICAL (14:26)
[2022-05-24] MEDS: IBUPROFEN 600 MG TABLET PO (14:26)
[2022-05-24] MEDS: BENZOCAINE 20% AER SPR (*SP) 56 GM CAN 1 SPRAY TOPICAL (14:26)
--- NOTE | 2022-05-24 15:42 | OBPPTRN ---
Patient transferred to post room #280 via wheelchair. Support person present. Oriented to unit, room, information board, rooming in, admission packet and security measures. Patient verbalizes understanding.
[2022-05-24] MEDS: ACETAMINOPHEN 325 MG TABLET 650 MG PO (19:23)
[2022-05-24] MEDS: POLYSACCHARIDE IRON COMPLEX 150 MG CAPSULE PO (19:25)
[2022-05-24] MEDS: DOCUSATE SODIUM 100 MG CAPSULE PO (19:25)
[2022-05-25 00:15] VITALS: BP 108/63; PULSE 91; RESP 18; TEMP 36.7
[2022-05-25] MEDS: IBUPROFEN 600 MG TABLET PO ×2 (04:55→10:17)
[2022-05-25 05:00] VITALS: BP 147/96; PULSE 79; RESP 18
[2022-05-25 05:04] LABS: Glucose Point of Care 99 mg/dl (65-105)
[2022-05-25 05:18] LABS: Hematocrit 29.7 % (37.0-47.0); Hemoglobin 9.2 g/dL (12.0-15.0)
[2022-05-25] MEDS: POLYSACCHARIDE IRON COMPLEX 150 MG CAPSULE PO (08:27)
[2022-05-25] MEDS: DOCUSATE SODIUM 100 MG CAPSULE PO (08:27)
[2022-05-25] MEDS: TETANUS,DIPHTHERIA,AC PERTUSSIS ADULT (0.5 ML) BOOSTRIX IM (08:28)
[2022-05-25 09:45] VITALS: BP 136/82; PULSE 86; RESP 20; TEMP 36.4; O2SAT 99
[2022-05-25] MEDS: ACETAMINOPHEN 325 MG TABLET 650 MG PO (10:18)
--- NOTE | 2022-05-25 10:23 | PM.OBPNVD ---
OB - PN: Subj Subjective Date/time seen: 05/25/22 10:23 Interval history: She states the baby is doing fine. No leg pain. Lochia decreasing. Adequate pain control with medication. She was trying not to take the medication at times. No severe headache scotomata or RUQ pain. Patient comments: pain well controlled and tolerating diet OB - PN: Obj Data Labs CBC & Chem 7: 05/25/22 05:00 Labs: Laboratory Results - last 24 hr 05/24/22 05/25/22 05/25/22 11:10 04:59 05:00 Hgb 9.2 L Hct 29.7 L POC Capillary Glucose 87 99 OB - PN A/P Plan day: 1 Plan: routine care Comments: Patient doing well. She request discharge to be with baby. Discharge precautions discussed. Time Spent With Patient Time: Total time spent is greater than 50% in coordination of care (as documented) at patient's floor/unit and/or counseling patient: Exam Psych: Affect: normal affect Other: Abd: fundus firm below umbilicus, nontender Perineum: healing Ext: nontender
--- NOTE | 2022-05-25 12:29 | PC.NURSE ---
0900 Patient was given the opportunity to view the discharge video Mother & Baby Care, The First Two Weeks and to ask questions. Patient declined viewing the video and has been given the mother/baby guide for home reference. Pt viewed this video 9 months ago.
--- NOTE | 2022-07-01 20:56 | PM.OBDSVD ---
DS: Admitting Diagnosis Discharge Date 05/25/22 Admitting Diagnosis labor DS: Discharge Diagnosis Discharge Diagnosis (1) delivery: Code(s): O60.10X0 - labor with delivery, unspecified trimester, not applicable or unspecified Status: Acute (2) Gestational diabetes mellitus (GDM): Code(s): O24.419 - Gestational diabetes mellitus in , unspecified control Status: Acute OB - DS: Summary Hospital Course Hospital Course: Patient admitted in active labor at 36 weeks. She had a vaginal delivery. she did well. Requested discharge on day 1. hemoglobin 9.2, patient asymptomatic. OB Procedures : Ultrasound OB Procedures Intrapartum: Spontaneous Vag Delivery OB Procedures: : None Peripartum Data Infant Delivery Method: Natural Vaginal Laceration Description: Perineal - 1st Degree and Superficial complications: none Status at Discharge Functional status at discharge: independent ambulation Time Spent with Patient Time attestation: Total time spent providing and/or coordinating discharge services: Exam Const: General: cooperative Orientation/consciousness: oriented to person, oriented to place and oriented to time HENMT: General nose exam: Normal external nose present Eyes: General: appearance normal, both eyes and all related structures Resp: Effort & Inspection: normal respiratory effort GI: Inspection: normal to inspection Skin: General skin exam: normal color Neuro: General: oriented to person, oriented to place and oriented to time Extrem: General: normal to inspection and no calf tenderness Psych: Appearance: grossly normal Mental Status: mental status grossly normal Discharge Plan Discharge Attending physician on discharge: Rylee Mena Consulting providers: Alisson Poon Discharging Clinician: Chito Velasquez Anticipated Discharge Date/Time: 05/25/22 10:26 Patient Disposition: Home, Self-Care Activity: may shower and pelvic rest Diet: regular Discharge Instructions: Education: Mom and Baby Guide Given to: Mother Follow-Up: Call your delivering provider's office for an appointment to be seen in: 6 Weeks Mom [facility] the follow-up appointment. Appointment Date/Time: Friday, May 27, 2022 at 10:00 am What to expect at your follow-up visit: Physical Assessment Call [phone] if you are unable to keep your appointment time. BREAST CARE: * Wear a snug supportive bra. * For engorgement discomfort: Bottle Feeding: * May apply ice packs EPISIOTOMY/PERINEAL CARE: * Until bleeding stops, use your tanesha bottle after urinating * Change your pad frequently throughout the day * You may take sitz baths several times a day (fill your bathtub with warm water and soak for 20 minutes.) Do NOT bathe in the water * No tub baths until seen by your physician - You may shower ACTIVITY: * Rest as much as possible. * Do not exercise or lift anything heavier than your baby (such as laundry or other children.) * Avoid stairs or driving as much as possible. * Do not put anything into the vagina. No douching, tampons, or sexual activity until seen by physician. NOTIFY PHYSICIAN IF YOU HAVE ANY QUESTIONS OR IF ANY OF THE FOLLOWING SYMPTOMS OCCUR: * If your episiotomy or incision becomes red, swollen, or more painful than what you have experienced in the hospital. * If your vaginal bleeding becomes foul smelling. * If your vaginal bleeding becomes more heavy than a period or if your bleeding changes from pink to bright red. However, you may pass an occasional walnut-sized clot once or twice for the first week . * If you experience a sharp, shooting pain in you calves. * If you discover a hard, reddened area on your breast or if you experience flu-like symptoms. DIET:
== END 2022-05-25 12:05 | disposition home or self-care (01) | DRG 807 ==
LOC: ANHLDR 05-24 08:40 → ANHOB2 05-25 10:29 → ANHLDR 05-28 08:12 → ANHOB2 05-28 08:12
PROVIDERS: Admitting Provider Student in an Organized Health Care Education/Training Program; PCP Family Medicine; Visit Provider Obstetrics & Gynecology
DX: O60.14X0 Preterm labor third trimester with preterm delivery third trimester, not applicable or unspecified (principal); Z37.0 Single live birth; Z3A.36 36 weeks gestation of pregnancy; O24.429 Gestational diabetes mellitus in childbirth, unspecified control; O70.0 First degree perineal laceration during delivery; O99.344 Other mental disorders complicating childbirth; F41.9 Anxiety disorder, unspecified; F32.A Depression, unspecified
CPT/HCPCS: 36415; 82948; 85014; 85018; 85025; 86592; 86850; 86900; 86901; 90715; A9270; J0290; J2590; J2795; J7120

== ENCOUNTER 2022-07-24 12:52 | Outpatient (CLI) | payer BC, MEDICAID, SELFPAY ==
[2022-07-24 13:33] LABS: Glucose Fasting 104 mg/dL
[2022-07-24 15:15] LABS: Glucose 1 Hour 226 mg/dL
[2022-07-24 15:58] LABS: Glucose 2 Hour 208 mg/dL
== END 2022-07-24 12:53 | disposition home or self-care (01) ==
LOC: ANHLAB 12:52
PROVIDERS: PCP Family Medicine; Visit Provider Student in an Organized Health Care Education/Training Program
DX: Z86.32 Personal history of gestational diabetes (principal)
CPT/HCPCS: 36415; 82951

== ENCOUNTER 2022-08-21 16:55 | Emergency (ER) | payer BC, MEDICAID, SELFPAY ==
[2022-08-21 17:15] VITALS: BP 144/82; PULSE 107; RESP 16; TEMP 36.5; O2SAT 98
[2022-08-21 17:41] LABS: Basophils Absolute Auto 0.02 K/mm3 (0.00-0.10); Basophils Percent Auto 0.2 % (0.0-1.0); Eosinophils Absolute Auto 0.08 K/mm3 (0.02-0.50); Hematocrit 35.9 % (35.0-49.0); Hemoglobin 11.1 g/dL (12.0-15.0); Immature Granulocyte Absolute 0.03 K/mm3 (0.00-0.00); Immature Granulocyte Percent A 0.4 % (0.0-0.0); Lymphocytes Absolute Auto 1.69 K/mm3 (1.10-4.50); Lymphocytes Percent Auto 20.1 % (18.0-42.0); Mean Corpuscular HGB Conc 30.9 g/dL (32.0-36.0); Mean Corpuscular Hemoglobin 24.3 pg (27.0-31.0); Mean Corpuscular Volume 78.6 fL (78.0-102.0); Mean Platelet Volume 8.7 fl (9.2-11.8); Monocytes Absolute Auto 0.35 K/mm3 (0.10-0.90); Monocytes Percent Auto 4.2 % (2.0-11.0); Neutrophils Absolute Auto 6.3 K/mm3 (1.7-7.2); Neutrophils Percent Auto 74.1 % (50.0-70.0); Platelet Count Result 384 K/mm3 (150-420); Red Blood Count 4.57 M/mm3 (4.20-5.40); Red Cell Distribution Width 15.6 % (11.6-14.4); White Blood Count 8.4 K/mm3 (4.8-10.8)
[2022-08-21 18:00] LABS: INR 0.9; Partial Thromboplastin Time 27.1 SEC (23.90-30.70); Prothrombin Time 10.1 Seconds (9.50-12.10)
[2022-08-21 18:07] LABS: SPREG INTERNAL CONTROL Positive; Serum Qual hCG Negative
[2022-08-21 18:31] LABS: Appearance Urine Clear (Clear); Bilirubin Urine Negative (Negative); Blood Urine 3+ (Negative); Glucose Urine UA Negative (Negative); Ketones Urine Negative (Negative); Leukocyte Esterase Ur Negative (Negative); Nitrate Urine Negative (Negative); Protein Urine Negative (Negative); Specific Grav Ur >= 1.030 (1.010-1.020)
--- NOTE | 2022-08-21 18:32 | ED.GENADULT ---
HPI - General Adult General Chief complaint: Unspecified Stated complaint: period for 2 1/2 weeks Time Seen by Provider: 08/21/22 16:58 Source: patient and RN notes reviewed Mode of arrival: ambulatory Limitations: no limitations History of Present Illness Onset (ago): week(s) (3) Location: pelvis Severity: mild Severity scale (1-10): 2 Quality: other (minimal colicky abdominal cramps.) Pain Consistency: colicky Relieving factors: none Exacerbating factors: none Treatments prior to arrival: none Related Data Home Medications Medication Instructions Recorded Confirmed No Home Medications 07/24/22 08/21/22 Allergies Allergy/AdvReac Type Severity Reaction Status Date / Time No Known Allergies Allergy Verified 08/21/22 17:05 Review of Systems Review of Systems: All systems reviewed & are unremarkable except as noted in HPI and below Constitutional: Constitutional: Reports no additional constitutional complaints Eyes: Eyes: Reports no additional eye complaints ENT: Reports system reviewed and no additional complaints, except as documented Cardiovascular: Cardiovascular: Reports no additional cardiovascular complaints Respiratory: Respiratory: Reports no additional respiratory complaints Gastrointestinal: Gastrointestinal: Reports no additional gastrointestinal complaints Genitourinary: Genitourinary: Reports abnormal vaginal bleeding and Reports other (crampy pelvic pain) Musculoskeletal: Musculoskeletal: Reports no additional musculoskeletal complaints Integumentary/Breasts: Skin/Breast: Reports system reviewed and no additional complaints, except as docu Neurologic: Reports system reviewed and no additional complaints, except as documented Psychiatric: Psychiatric: Reports no additional psychiatric complaints Endocrine: Endocrine: Reports no additional endocrine complaints Hematologic/Lymphatic: Hematologic/Lymphatic: Reports no additional hematologic/lymphatic complaints Allergic/Immunologic: Allergic/Immunologic: Reports no additional allergic/immunologic complaints [facility] Past Medical History Medical History Anxiety and depression History of prediabetes Menorrhagia Nonalcoholic liver disease, chronic Vaginal delivery x1 Surgical History Surgical History History of tonsillectomy and adenoidectomy 2016? Family History Family History Father Hypertension Asthma Mother , 06/2021 Diabetes mellitus Heart failure Kidney disease Hypertension Asthma Grandparent Diabetes mellitus Heart problem Other Patient's mother is Social History Social History Smoking status: Former smoker Tobacco type: cigarettes Second hand tobacco smoke exposure: No Smoking end date: 10/03/21 Additional smoking assessment comments: quit when she found out she was Alcohol intake: former Alcohol use details: heavy drinker prior to find out she is Substance use: never Additional occupation/education comments: [employer] Gender identity (if verbalized by the patient): Female Spiritual care concerns: No Exam Const: General: no acute distress and well nourished Nutritional Appearance: well nourished Orientation/consciousness: patient oriented x3 Limitations: no limitations HENMT: Head: normal to inspection Ears: external ears normal, TM's normal bilaterally and EAC's normal Face/Nose/Sinus: Normal external nose present, Normal nares present, normal facial exam and sinuses nontender Face and sinus: normal facial exam and sinuses nontender Mouth: Yes Normal oral and palatal mucosa present and Yes moist mucous membranes Teeth and gingiva: dentition normal Throat: posterior oropharynx normal Eyes: Conjunctiv
[2022-08-21 18:49] VITALS: BP 138/80; PULSE 95; RESP 16; O2SAT 98
[2022-08-21 18:50] LABS: Add Urine Microscopic? YES; Color Urine Light Yellow (Yellow); RBC Urine >75 /hpf (0-2); Squamous Epithelial Cell Urine Few /hpf (Few)
[2022-08-21 18:51] LABS: Bacteria Urine Trace /hpf
== END 2022-08-21 18:51 | disposition home or self-care (01) ==
PROVIDERS: Emergency Provider Emergency Medicine; PCP Family Medicine
DX: N92.0 Excessive and frequent menstruation with regular cycle (principal)
CPT/HCPCS: 36415; 81001; 84703; 85025; 85610; 85730; 99283

== ENCOUNTER 2023-02-13 14:23 | Emergency (ER) | payer BC, MEDICAID, SELFPAY ==
--- NOTE | ~2023-02-13 | XR_ITS ---
EXAMINATION: XR thoracolumbar INDICATION: Thoracolumbar back pain TECHNIQUE: AP and lateral views of the thoracolumbar spine are obtained. COMPARISON: 06/27/2017 FINDINGS: Bone alignment is normal. There is no fracture. There is mild chronic anterior wedging of m ultiple lower thoracic vertebral bodies, likely physiologic. 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 IMPRESSION: 1. No acute osseous abnormality. Reviewed, dictated and finalized at location F.
--- NOTE | ~2023-02-13 | XR_ITS ---
EXAMINATION: XR ribs RT 2V INDICATION: Right rib pain TECHNIQUE: 3 views of the right ribs were obtained. COMPARISON: 05/16/2022 FINDINGS: The right lung is clear. No pleural effusion or pneumothorax. No displaced right rib fractu re is identified. IMPRESSION: 1. No acute cardiopulmonary abnormality or evidence of displaced rib fracture. Reviewed, dictated and finalized at location F.
[2023-02-13 14:30] VITALS: BP 160/90; PULSE 85; RESP 16; TEMP 36.3; O2SAT 99
[2023-02-13 14:32] VITALS: BP 160/90; PULSE 85; RESP 16; TEMP 36.3; O2SAT 99
--- NOTE | 2023-02-13 14:38 | ED.FALL ---
HPI - Fall General Chief Complaint: Fall Stated Complaint: fall; low back pain and right rib pain Time Seen by Provider: 02/13/23 14:30 Source: patient Mode of arrival: ambulatory Limitations: no limitations History of Present Illness HPI Narrative: this is a 22-year-old female that fell yesterday 5 step stool and hurting her mid and lower back and right rib area, there is some point tenderness in the mid and lower back area and in the right rib area with no shortness of breath is no bruising no swelling no nausea vomiting no abdominal pain no other injuries no head injury no loss of consciousness. complaint: fall Onset (ago): day(s) Fall from: standing Fall witnessed: no Place fall occurred: home Loss of consciousness: none Prolonged down time: no Symptoms prior to fall: none Context: tripped/slipped Related Data Home Medications Medication Instructions Recorded Confirmed No Home Medications 07/24/22 02/13/23 Allergies Allergy/AdvReac Type Severity Reaction Status Date / Time No Known Allergies Allergy Verified 02/13/23 14:32 Review of Systems Review of Systems: All systems reviewed & are unremarkable except as noted in HPI and below PMFSH Past Medical History Medical History Anxiety and depression History of prediabetes Menorrhagia Nonalcoholic liver disease, chronic Vaginal delivery x1 Surgical History Surgical History History of tonsillectomy and adenoidectomy 2015? Family History Family History Father Hypertension Asthma Mother , 06/2021 Diabetes mellitus Heart failure Kidney disease Hypertension Asthma Grandparent Diabetes mellitus Heart problem Other Patient's mother is Social History Social History Smoking status: Former smoker Tobacco type: cigarettes Second hand tobacco smoke exposure: No Smoking end date: 10/03/21 Additional smoking assessment comments: quit when she found out she was Alcohol intake: former Alcohol use details: heavy drinker prior to find out she is Substance use: never Living arrangements: with family Occupation/Education: student Additional occupation/education comments: [employer] Gender identity (if verbalized by the patient): Female Spiritual care concerns: No Exam Const: General: healthy appearing Orientation/consciousness: patient oriented x3 Limitations: no limitations HENMT: Head: normal to inspection Face and sinus: normal facial exam Eyes: Conjunctivae: conjunctivae normal Pupils: Equal, round and reactive pupils present EOM: EOMs intact bilaterally Direct Ophthalmoscopy: no photophobia Neck: Neck: normal visual inspection Chest: Chest palpation & inspection: normal inspection of the chest Other: Mid and lower back pain with palpation with some right rib pain with palpation Resp: Effort & Inspection: normal respiratory effort Auscultation: clear to auscultation bilaterally Cardio: Rate: regular rate Rhythm: regular rhythm GI: Auscultation: normal bowel sounds : General: Yes bladder normal to palpation Urinary Catheter: Urinary Catheter: patent and draining Back/Spine/Pelvis: Back: no CVA tenderness Skin: General skin exam: normal color Neuro: General: patient oriented x3 Cranial nerves: Yes Nystagmus not present Speech: normal speech Gait exam (Neuro): Normal gait present Extrem: General: normal to inspection Psych: Mental Status: mental status grossly normal Affect: normal affect Attitude: cooperative Course Course Emergency Course: patient rates her pain about a 7/10 in the midback and lower back and right rib area pain review patient received 60mg IM Toradol x-rays performed and reviewed with nida
[2023-02-13] MEDS: KETOROLAC (*BKC) 60 MG/2 ML VIAL IM (14:42)
[2023-02-13 15:02] LABS: Pregnancy On Board Control Positive; Urine Pregnancy Test Negative
[2023-02-13 15:46] VITALS: BP 131/74; PULSE 68; RESP 18; TEMP 36.9; O2SAT 99
== END 2023-02-13 15:50 | disposition home or self-care (01) ==
PROVIDERS: Emergency Provider Emergency Medicine; PCP Family Medicine
DX: S39.012A Strain of muscle, fascia and tendon of lower back, initial encounter (principal); Z87.891 Personal history of nicotine dependence; W08.XXXA Fall from other furniture, initial encounter
CPT/HCPCS: 71100; 72080; 81025; 96372; 99283; J1885

== ENCOUNTER 2023-04-06 11:24 | Emergency (ER) | payer BC, MEDICAID, SELFPAY ==
--- NOTE | ~2023-04-06 | XR_ITS ---
XR chest 2V DATE: 04/06/2023 12:08 INDICATION: Cough, fever, low mid chest burning sensation. Sore throat. TECHNIQUE: PA and lateral views COMPARISON: 05/16/2022 portable AP chest FINDINGS: Normal heart size. No hilar or mediastinal enlargement. No pulmonary infiltrate or consolid ation, pleural effusion or pulmonary vascular congestion or pneumothorax is detected. IMPRESSION: No active cardiopulmonary disease Reviewed, dictated and finalized at location A.
[2023-04-06 11:24] VITALS: BP 157/86; PULSE 96; RESP 16; TEMP 36.9; O2SAT 99
--- NOTE | 2023-04-06 11:36 | ED.GENADULT ---
HPI - General Adult General Chief complaint: Upper Respiratory Infection Stated complaint: sore throat Time Seen by Provider: 04/06/23 11:35 Source: patient Mode of arrival: ambulatory Limitations: no limitations Related Data Home Medications Medication Instructions Recorded Confirmed No Home Medications 07/24/22 04/06/23 Allergies Allergy/AdvReac Type Severity Reaction Status Date / Time No Known Allergies Allergy Verified 02/13/23 14:32 [facility] Past Medical History Medical History Anxiety and depression History of prediabetes Menorrhagia Nonalcoholic liver disease, chronic Vaginal delivery x1 Surgical History Surgical History History of tonsillectomy and adenoidectomy 2015? Family History Family History Father Hypertension Asthma Mother , 06/2021 Diabetes mellitus Heart failure Kidney disease Hypertension Asthma Grandparent Diabetes mellitus Heart problem Other Patient's mother is Social History Social History Smoking status: Former smoker Tobacco type: cigarettes Second hand tobacco smoke exposure: No Smoking end date: 10/03/21 Additional smoking assessment comments: quit when she found out she was Alcohol intake: former Alcohol use details: heavy drinker prior to find out she is Substance use: never Living arrangements: with family Occupation/Education: student Additional occupation/education comments: [employer] Gender identity (if verbalized by the patient): Female Spiritual care concerns: No Exam Narrative: Patient is a white female? and appears in no apparent distress. ? Head is normocephalic atraumatic. ? Eyes:? Pupils are equal round react light extraocular movements are intact. ? Ears:? TMs are normal .? Ear canals are normal.? Hearing is grossly normal. ? Nose:? Normal. ? Throat:? Oropharynx is clear with moist mucous membranes.? Posterior pharynx is clear with no exudates. ? Neck:? Supple no lymphadenopathy.? Full range of motion? without tenderness. ??Lungs:? Clear to auscultation without wheezes rales or rhonchi . Thorax:? Chest wall nontender without crepitation. ? Heart:? Regular rate and rhythm without murmurs gallops or rubs. ? Back:? Nontender. ? Abdomen:? Positive bowel sounds, soft, nontender, no hepatosplenomegaly or masses, no CVA tenderness, no abdominal bruits, no guarding or rebound. ? Extremities:? Full range of motion nontender .?? No cyanosis clubbing or edema. ?Neuro:? alert and oriented x4.? Motor and sensory grossly intact.? Speech is normal.? Affect normal.? Cranial nerves 2-12 are normal . ? Skin:? Warm and dry without lesions. Course Vital Signs Vital signs: Vital Signs Temperature 36.9 C 04/06/23 11:24 Pulse Rate 96 04/06/23 11:24 Respiratory Rate 16 04/06/23 11:24 Blood Pressure 157/86 H 04/06/23 11:24 Pulse Oximetry 99 04/06/23 11:24 Oxygen Delivery Room Air 04/06/23 11:24 Temperature 36.9 C 04/06/23 11:24 Pulse Rate 96 04/06/23 11:24 Respiratory Rate 16 04/06/23 11:24 Blood Pressure 157/86 H 04/06/23 11:24 Pulse Oximetry 99 04/06/23 11:24 Oxygen Delivery Room Air 04/06/23 11:24 Medical Decision Making MDM Narrative Medical decision making narrative: Independent Historian: Differential Dx includes but not limited to: strep RSV flu a B, other viral URI, pneumonia Medications were Reviewed: no meds no allergies Independently Interpreted by me: chest x-ray showed no active disease as interpreted by me External Source Review: Received in IUD last August at Rylee Mena's office Shared decision Making: labs and x-ray were discussed patient agreed on plan all questions were asked and answer
[2023-04-06 12:25] LABS: Strep Group A RT-PCR Not Detected (Negative)
[2023-04-06 12:37] LABS: SARS-CoV-2 RNA PCR Negative (Negative)
[2023-04-06 12:47] VITALS: BP 157/86; PULSE 96; RESP 20; TEMP 36.9; O2SAT 98
== END 2023-04-06 12:50 | disposition home or self-care (01) ==
PROVIDERS: Emergency Provider Emergency Medicine; PCP Family Medicine
DX: J06.9 Acute upper respiratory infection, unspecified (principal); Z87.891 Personal history of nicotine dependence; Z20.822 Contact with and (suspected) exposure to COVID-19
CPT/HCPCS: 71046; 87635; 87651; 99283

== ENCOUNTER 2023-06-10 13:07 | Outpatient (RCR) | payer BC, MEDICAID, SELFPAY ==
--- NOTE | 2023-06-10 14:17 | PTOPEVAL1 ---
Assessment and note entered by Barbara Cardona, PT Evaluation Information Assessment Status Evaluation Diagnosis R sided sciatica Onset 06/06/23 Subjective Information Brandie Torres reports she gave to her daughter on 05/24/22 and since then she started having lower back and right hip pain. She states that pain has been intermittent but gradually getting worse. She then started having a shooting pain down the back of her leg, calf, and under the foot 2 weeks ago. She reports she did have sciatic pain while she was with her first child and had a fall off the exam table early in her second . She had intermittent pain since that fall but did not have x-rays. She notes increased pain with standing/walking more than 2 hours and when she does a lot of bending and lifting while cleaning her house. 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 Reported Pain Level Pain Score 1: Self Report Assessment PT Clinical Summary Brandie Torres presents with intermittent low back and right hip pain that started during her . She recently developed shooting pain distally in the right posterior LE as well as tingling in her right foot. Symptoms are provoked by walking/standing more than 2 hours which is required for her job in [employer]. She demonstrates painful lumbar extension AROM, positive special tests for lumbar nerve root irritation, decreased core strength, decreased right hamstring and piriformis flexibility, tenderness at the right sciatic notch, and decreased functional abilities. She will benefit from skilled PT to address these limitations. Plan of Care Interventions Electrical Stimulation,Hot Pack/Cold Pack,Manual Therapy,Neuro Re-education,Patient/Caregiver Educati,Therapeutic Activities,Therapeutic Exercise PT Services Indicated Yes Treatment Frequency and 2 times a week for 10 visits Duration These treatments will address the objective and functional deficits as defined above. The patient will be advanced safely and appropriately in order for the patient to progress towards his/her prior level of function. Additional exercises will be introduced and as well as a comprehensive home exercise program upon discharge, if needed, ?to ensure carryover of functional gains achieved in the clinic. This
--- NOTE | 2023-06-10 14:17 | OPREHPOC ---
Outpatient Therapy Plan of Care This is a Multidisciplinary Plan of Care that may contain components documented by all disciplines (PT, OT, and ST.) PT Problem 1 PT Problem #1 Knowledge Deficit PT Goal 1 Goal The patient will be independent in a home exercise program to continue after discharge from formal PT. Target Visit 10 PT Problem 2 PT Problem #2 Pain PT Goal 1 Goal The patient will report no greater than 3/10 with standing/working a full 8 hour shift at work. Target Visit 10 PT Problem 3 PT Problem #3 Impaired Strength PT Goal 1 Goal The patient will demonstrate 4/5 strength in the abdominals and lumbar paraspinals to support the spine for prolonged standing. Target Visit 10 PT Problem 4 PT Problem #4 Impaired Range of Motion PT Goal 1 Goal The patient will demonstrate full, pain free lumbar AROM in all planes. Target Visit 10 PT Problem 5 PT Problem #5 Impaired Functional Mobil PT Goal 1 Goal Pt to score less than 20% self perceived disability on the Back Index Questionnaire. Target Visit 10
--- NOTE | 2023-07-10 13:59 | PTOPDC ---
Assessment and note entered by Barbara Cardona, PT Evaluation Information Assessment Status Discharge Diagnosis R sided sciatica Onset 06/06/23 Subjective Information Brandie Torres reports her lower back and right buttock pain and has improved since initiating PT however, she does continue to have pain. She notes the pain now typically occurs when she bends over to lift something. She notes less pain with prolonged standing and walking. She feels she has improved 50% overall. She has also been experiencing deep pelvic pain recently and has made an appointment with her [employer] for that pain. Reported Pain Level Pain Score 1: Self Report Assessment PT Clinical Summary Pepito Torres has completed 8 skilled PT sessions for right hip and low back pain. She is reporting a 50% improvement overall since initiating PT noting less pain with prolonged standing and walking but she does still get pain with bending and lifting. She has also been having internal pelvic pain and plans to follow up with her [employer] L[employer]ATOR regarding that pain. She demonstrates improved lumbar AROM, improved core strength, and less tenderness. She continues to have decreased core strength and was limited with progressions in core strength due to pelvic pain. She will be discharged at this time to her independent [facility] for core strength and to follow up regarding worsening pelvic pain. Plan of Care PT Services Indicated No
--- NOTE | 2023-07-10 13:59 | OPREHPOC ---
Outpatient Therapy Plan of Care This is a Multidisciplinary Plan of Care that may contain components documented by all disciplines (PT, OT, and ST.) PT Problem 1 PT Problem #1 Knowledge Deficit PT Goal 1 Goal The patient will be independent in a home exercise program to continue after discharge from formal PT. Target Visit 10 Progress Met PT Problem 2 PT Problem #2 Pain PT Goal 1 Goal The patient will report no greater than 3/10 with standing/working a full 8 hour shift at work. Target Visit 10 Progress Met PT Problem 3 PT Problem #3 Impaired Strength PT Goal 1 Goal The patient will demonstrate 4/5 strength in the abdominals and lumbar paraspinals to support the spine for prolonged standing. Target Visit 10 Progress Partially Met PT Problem 4 PT Problem #4 Impaired Range of Motion PT Goal 1 Goal The patient will demonstrate full, pain free lumbar AROM in all planes. Target Visit 10 Progress Partially Met PT Problem 5 PT Problem #5 Impaired Functional Mobil PT Goal 1 Goal Pt to score less than 20% self perceived disability on the Back Index Questionnaire. Target Visit 10 Progress Met
== END 2023-07-10 17:49 | disposition home or self-care (01) ==
LOC: CHSPT 13:07
DX: M54.41 Lumbago with sciatica, right side (principal)
CPT/HCPCS: 97014; 97110; 97140; 97161; G0283

== ENCOUNTER 2023-09-30 14:42 | Outpatient (CLI) | payer BC, MEDICAID, SELFPAY ==
--- NOTE | ~2023-09-30 | US_ITS ---
EXAMINATION: US pelvic complete w TV DATE: 09/30/2023 15:46 INDICATION: Comparison: TECHNIQUE: Multiple transabdominal and endovaginal sonographic images of the pelvis performed. FINDINGS: The uterus measures 8.1 x 5 x 4.4 cm. IUD is present in the lower uterine segment extending into the cervix. The endometrial complex measures 8 mm. The right ovary measures 3.2 x 2 x 2.5 cm and the left ovary measures 3 x 1.7 x 1.7 cm. There are sm all follicles in each ovary. Normal doppler signal in both ovaries. There is no free fluid in the pelvis. There are no abnormal masses seen on either side. IMPRESSION: 1. IUD present in the lower uterine segment within the endometrium extending into the cervix. Otherwi se, unremarkable pelvic ultrasound. Reviewed, dictated and finalized at location L. [facility]EN IMPRESSION: 1. IUD present in the lower uterine segment within the endometrium extending in to the cervix. Otherwise, unremarkable pelvic ultrasound.
== END 2023-09-30 14:43 | disposition home or self-care (01) ==
PROVIDERS: PCP Family Medicine; Visit Provider Registered Nurse
DX: R10.2 Pelvic and perineal pain (principal); Z97.5 Presence of (intrauterine) contraceptive device
CPT/HCPCS: 76830; 76856

== ENCOUNTER 2024-01-04 18:30 | Emergency (ER) | payer BC, MEDICAID, SELFPAY ==
--- NOTE | ~2024-01-04 | CT_ITS ---
EXAMINATION: CT abdomen pelvis wo con DATE: 01/04/2024 19:49 INDICATION: ABD PAINX1 DAY. VOMITING/DIARRHEA. RECENTLY STARTED OZEMPIC. TECHNIQUE: Computed tomography (CT) of the abdomen and pelvis was performed without intravenous contr ast. Automated exposure control and iterative reconstruction technique were employed. The dose-length product was 1622.11 mGy-cm. COMPARISON: None. FINDINGS: Lower thorax: Unremarkable Liver: Subcentimeter hyperintensity or hyperenhancement in the liver dome, may represent a hemangioma or a small focus of fatty sparing. Otherwise diffuse and uniform liver parenchymal low density. Biliary/Gallbladder: Cholelithiasis. No bile duct dilation. Pancreas: No mass or duct dilation. Spleen: Normal. Adrenals:No mass. Kidneys: Subtle, punctate bilateral nonobstructing calculi. No suspicious mass, hydronephrosis, or ob structing calcification. GI tract: No small or large bowel dilation. Normal appendix. Mesentery/Peritoneum: No ascites, mass, or free air. Retroperitoneum: No mass. Pelvis: IUD, positioned low in the uterus, the tip of the longitudinal limb quite near the cervical o s. Uterus otherwise normal. Normal ovaries. Empty urinary bladder. Soft Tissues: Tiny, uncomplicated fat-containing umbilical hernia Bones: No acute osseous finding. IMPRESSION: Hepatic steatosis. Cholelithiasis, without CT evidence of cholecystitis. Minimal bilateral nonobstructive nephrolithiasis. Low positioned IUD, correlate with any symptoms of pelvic pain or abnormal bleeding, or visibility of the tip of the longitudinal limb on pelvic exam. Consider removal/replacement. Reviewed, dictated and finalized at location [facility]. [facility] IMPRESSION: Hepatic steatosis. Cholelithiasis, without CT evidence of cholecystitis. Minimal bilateral nonobstructive nephrolithiasis. Low positioned IUD, correlate with any symptoms of pelvic pain or abnormal blee ding, or visibility of the tip of the longitudinal limb on pelvic exam. Conside r removal/replacement.
[2024-01-04 18:35] VITALS: BP 155/106; PULSE 107; RESP 16; TEMP 36.7; O2SAT 100
--- NOTE | 2024-01-04 18:38 | ED.ABDPAIN ---
HPI - Abdominal Pain General Chief Complaint: Abdominal Pain Stated Complaint: cold symptoms. Time Seen by Provider: 01/04/24 18:36 Source: patient Mode of arrival: ambulatory Limitations: no limitations History of Present Illness HPI narrative: Patient is a 23-year-old female with cough and congestion with some nausea and vomiting. She has been sick today. She started increasing her Ozempic 3 days ago. MD elicited complaint: abdominal pain Pertinent past history: other ( Newly started Ozempic with increasing dose 3 days ago) Onset (ago): day(s) (1) Pain Consistency: constant Location: epigastric and RLQ Severity: mild Pain scale (0-10): 3 Quality: cramping, aching and sharp Radiation: none Migration to: no migration Exacerbating factors: nothing Relieving factors: nothing Associated symptoms: nausea and vomiting Related Data Home Medications Medication Instructions Recorded Confirmed metformin 500 mg tablet 500 mg PO DAILY 07/22/23 01/04/24 semaglutide 0.25 mg or 0.5 mg (2 See Rx Instructions .Route .COMPLEX 01/04/24 01/04/24 mg/3 mL) subcutaneous pen injector (Ozempic) Allergies Allergy/AdvReac Type Severity Reaction Status Date / Time No Known Allergies Allergy Verified 01/04/24 18:41 Review of Systems Review of Systems: All systems reviewed & are unremarkable except as noted in HPI and below Constitutional: Constitutional: Reports no additional constitutional complaints Eyes: Eyes: Reports no additional eye complaints ENT: Reports system reviewed and no additional complaints, except as documented Cardiovascular: Cardiovascular: Reports no additional cardiovascular complaints Respiratory: Respiratory: Reports no additional respiratory complaints Gastrointestinal: Gastrointestinal: Reports no additional gastrointestinal complaints Genitourinary: Genitourinary: Reports no additional female genitourinary complaints Musculoskeletal: Musculoskeletal: Reports no additional musculoskeletal complaints Integumentary/Breasts: Skin/Breast: Reports system reviewed and no additional complaints, except as docu Neurologic: Reports system reviewed and no additional complaints, except as documented Psychiatric: Psychiatric: Reports no additional psychiatric complaints Endocrine: Endocrine: Reports no additional endocrine complaints Hematologic/Lymphatic: Hematologic/Lymphatic: Reports no additional hematologic/lymphatic complaints Allergic/Immunologic: Allergic/Immunologic: Reports no additional allergic/immunologic complaints PMFSH Past Medical History Medical History Anxiety and depression Diabetes mellitus Menorrhagia Nonalcoholic liver disease, chronic Screen for STD (sexually transmitted disease) Vaginal delivery x1 Surgical History Surgical History History of tonsillectomy and adenoidectomy 2016? Family History Family History Father Hypertension Asthma Mother , 06/2021 Diabetes mellitus Heart failure Kidney disease Hypertension Asthma Grandparent Diabetes mellitus Heart problem Other Patient's mother is Social History Social History Smoking status: Former smoker Tobacco type: e-cigarettes/vaping Second hand tobacco smoke exposure: No Smoking end date: 10/03/21 Additional smoking assessment comments: quit when she found out she was Alcohol intake: current Alcohol use details: heavy drinker prior to find out she is Substance use: never Lack of Transportation: No Lack of Food: Never True Current Housing: I Have Housing Concerned About Future Housing: No Difficulty Paying Gas/Electric Bills: No Difficulty Paying for Meds: No Currently Unemployed: No Difficulty w/ Child
--- NOTE | 2024-01-04 18:46 | PC.NURSE ---
Pt educated on Ozempic and its side effects. Pt now states, I been on Ozemic for two weeks actually. I took the small dose last friday and then they called me this Friday and told me to take the bigger dose (0.5mg) ERP made aware.
--- NOTE | 2024-01-04 18:53 | PC.NURSE ---
Report given to Gulshan SNELL.
[2024-01-04 19:03] VITALS: PULSE 89; O2SAT 100
[2024-01-04 19:20] LABS: Influenza A QL RT-PCR Negative (Negative); Influenza B QL RT-PCR Negative (Negative); RSV RNA, RT-PCR Negative (Negative); SARS-CoV-2 RNA PCR Negative (Negative)
[2024-01-04 19:25] LABS: Bilirubin Urine Negative (Negative); Blood Urine 1+ (Negative); Color Urine Light Yellow (Yellow); Glucose Urine UA Negative (Negative); Ketones Urine Trace (Negative); Leukocyte Esterase Ur Trace LEU/UL (Negative); Nitrate Urine Negative (Negative); Protein Urine Negative (Negative); pH Urine 7.5 (5.0-8.0)
[2024-01-04 19:32] LABS: Add Urine Microscopic? YES; Appearance Urine Cloudy (Clear); RBC Urine 0-2 /hpf (0-2); Squamous Epithelial Cell Urine Many /hpf (Few); WBC Urine 0-3 /hpf (0-3)
[2024-01-04 19:33] LABS: Bacteria Urine 1+ /hpf; Pregnancy On Board Control Positive; Urine Pregnancy Test Negative
[2024-01-04] MEDS: CIPROFLOXACIN 500 MG TAB PO (21:11)
[2024-01-04 21:13] VITALS: BP 132/97; PULSE 91; RESP 18; O2SAT 98
== END 2024-01-04 21:15 | disposition home or self-care (01) ==
PROVIDERS: Emergency Provider Emergency Medicine; PCP Family Medicine
DX: R11.2 Nausea with vomiting, unspecified (principal); N30.00 Acute cystitis without hematuria; T50.995A Adverse effect of other drugs, medicaments and biological substances, initial encounter; E11.9 Type 2 diabetes mellitus without complications; Z79.84 Long term (current) use of oral hypoglycemic drugs; Z87.891 Personal history of nicotine dependence; Z20.822 Contact with and (suspected) exposure to COVID-19
CPT/HCPCS: 74176; 81001; 81025; 87637; 99284; A9270

== ENCOUNTER 2024-05-03 23:08 | Emergency (ER) | payer BC, MEDICAID, SELFPAY ==
[2024-05-03 23:10] VITALS: BP 148/93; PULSE 89; RESP 18; TEMP 36.2; O2SAT 97
--- NOTE | 2024-05-03 23:23 | ED.BACK ---
HPI - Back Pain/Injury General Chief Complaint: Back Pain/Injury Stated Complaint: sciatica pain Source: patient Mode of arrival: ambulatory Limitations: no limitations History of Present Illness HPI Narrative: This is a 23-year-old female with a history of lower back pain had a cough few days ago and since then has been having increased back pain and it is sciatic in nature with radiculopathy radiating down her right lower leg with no fever chills no saddle paresthesias. Patient has no dysuria no hematuria no nausea vomiting or abdominal pain no diarrhea constipation. No flank pain. MD elicited complaint: back pain Pertinent past history: prior back pain Onset (ago): day(s) Timing: constant Severity: moderate Pain scale (0-10): 6 Similar Symptoms Previously: Yes Quality: stabbing and aching Location: lumbar spine and right lower back Radiation: right upper leg and right leg below the knee Exacerbating factors: movement Relieving factors: immobilization Context: while lifting, turning/twisting, bending and fall Related Data Home Medications Medication Instructions Recorded Confirmed metformin 500 mg tablet 500 mg PO DAILY 07/22/23 05/03/24 semaglutide 0.25 mg or 0.5 mg (2 See Rx Instructions .Route .COMPLEX 01/04/24 05/03/24 mg/3 mL) subcutaneous pen injector (Ozempic) Allergies Allergy/AdvReac Type Severity Reaction Status Date / Time No Known Allergies Allergy Verified 05/03/24 23:13 Review of Systems Review of Systems: All systems reviewed & are unremarkable except as noted in HPI and below PMFSH Past Medical History Medical History Anxiety and depression Diabetes mellitus Menorrhagia Nonalcoholic liver disease, chronic Screen for STD (sexually transmitted disease) Vaginal delivery x1 Surgical History Surgical History History of tonsillectomy and adenoidectomy 2016? Family History Family History Father Hypertension Asthma Mother , 06/2021 Diabetes mellitus Heart failure Kidney disease Hypertension Asthma Grandparent Diabetes mellitus Heart problem Other Patient's mother is Social History Social History Smoking status: Former smoker Tobacco type: e-cigarettes/vaping Second hand tobacco smoke exposure: No Smoking end date: 10/03/21 Additional smoking assessment comments: quit when she found out she was Alcohol intake: current Alcohol use details: heavy drinker prior to find out she is Substance use: never Lack of Transportation: No Lack of Food: Never True Current Housing: I Have Housing Concerned About Future Housing: No Difficulty Paying Gas/Electric Bills: No Difficulty Paying for Meds: No Currently Unemployed: No Difficulty w/ Childcare or Family Care: No Living arrangements: with family Occupation/Education: occupation Additional occupation/education comments: [employer] Gender identity (if verbalized by the patient): Female Spiritual care concerns: No Exam Const: General: healthy appearing and no acute distress Nutritional Appearance: well nourished Orientation/consciousness: patient oriented x3 Limitations: no limitations Neck: Neck: normal visual inspection Chest: Chest palpation & inspection: normal inspection of the chest Resp: Effort & Inspection: normal respiratory effort Auscultation: clear to auscultation bilaterally Cardio: Rate: regular rate Rhythm: regular rhythm GI: GI Palp: Yes Soft to palpation Auscultation: normal bowel sounds : General: Yes bladder normal to palpation Back/Spine/Pelvis: Back: no CVA tenderness Skin: General skin exam: normal color Neuro: General: patient oriented x3, moves all extremities, no me
[2024-05-03] MEDS: KETOROLAC (*BKC) 60 MG/2 ML VIAL IM (23:36)
[2024-05-03] MEDS: ORPHENADRINE CITRATE 30 MG/ML 2 ML VIAL 60 MG IM (23:36)
== END 2024-05-03 23:53 | disposition home or self-care (01) ==
PROVIDERS: Emergency Provider Emergency Medicine; PCP Family Medicine
DX: M54.31 Sciatica, right side (principal); S39.012A Strain of muscle, fascia and tendon of lower back, initial encounter; E11.9 Type 2 diabetes mellitus without complications; Z87.891 Personal history of nicotine dependence; X58.XXXA Exposure to other specified factors, initial encounter
CPT/HCPCS: 96372; 99284; J1885; J2360

== ENCOUNTER 2024-05-12 14:14 | Outpatient (RCR) | payer BC, MEDICAID, SELFPAY ==
--- NOTE | 2024-05-12 15:35 | OPREHPOC ---
Outpatient Therapy Plan of Care This is a Multidisciplinary Plan of Care that may contain components documented by all disciplines (PT, OT, and ST.) PT Problem 1 PT Problem #1 Knowledge Deficit PT Goal 1 Goal 1. independent and compliant with HEP Target Visit 6 PT Problem 2 PT Problem #2 Pain PT Goal 1 Goal 1. decrease pain at worst in the lower back and R LE to 4/10 or less in the last wek. 2. patient to report reduction of paresthesia's not past the R buttock. Target Visit 12 PT Problem 3 PT Problem #3 Impaired Strength PT Goal 1 Goal 1. 4+/5 or better bilateral hip strength overall 2. 5/5 R knee flexion strength 3. 3+/5 or better core strength 4. patient to complete 20 reps of supine bridge without increased pain Target Visit 12 PT Problem 4 PT Problem #4 Impaired Functional Mobil PT Goal 1 Goal 1. oswestry to display 20% or less functional deficits 2. patient to bend, lift, and carry kids without increased pain in the lower back 3. patient to ambulate 800ft or more in 6 minutes without increased pain/symptoms Target Visit 12
--- NOTE | 2024-05-12 15:36 | PTOPEVAL1 ---
Assessment and note entered by JT File, PT Evaluation Information Assessment Status Evaluation Diagnosis R sciatica without lumbago Other ICD-10 Condition Codes ( M54.31 PT) Onset 05/07/24 Subjective Information patient reports no specific injury, but believes her symptoms are related to have 2 kids back to back. she reports she has always had R sciatic symptoms from the R buttock/hip down to the R knee along the side of the leg. she reports she has been more flared up since a few weeks ago, and the pain was reaching down to the foot. she reports she went to the ER at this time, and was put on new meds. she reports she has not had an xray or mri as of yet. she reports she has increased pain and symptoms with bending, lifting, walking. she reports she has 2 kids (2yo and 3yo). she reports she takes care of the kids throughout the day. Reported Pain Level Pain Score 1: Self Report Assessment PT Clinical Summary mrs. lewis is a 23 yo woman who presents to skilled PT services for evaluation and treatment of lower back and R LE symptoms. she presents today with signs and symptoms consistent with R sciatica from a discoid injury. she displays decreased rom, decreased lifting performance, weakness, and pain. continued skilled PT is indicated to improve her objective/functional deficits and progress towards return to her prior level functional activity performance/quality of life. Plan of Care Interventions Electrical Stimulation,Hot Pack/Cold Pack,Manual Therapy,Neuro Re-education,Patient/Caregiver Educati,Therapeutic Activities,Therapeutic Exercise PT Services Indicated Yes Treatment Frequency and 2x weekly for 12 visits Duration These treatments will address the objective and functional deficits as defined above. The patient will be advanced safely and appropriately in order for the patient to progress towards his/her prior level of function. Additional exercises will be introduced and as well as a comprehensive home exercise program upon discharge, if needed, ?to ensure carryover of functional gains achieved in the clinic. This treatment plan has been reviewed and agreement upon by the patient.
--- NOTE | 2024-06-16 10:51 | PTOPDC ---
Assessment and note entered by Rufus Garay Evaluation Information Assessment Status Discharge Diagnosis R sciatica without lumbago Other ICD-10 Condition Codes ( M54.31 PT) Onset 05/07/24 Subjective Information Pt. continues to describe pain across the low back . She reports 1-2 days of relief after treatment, but pain returns. She reports she continues to do her work related duties, just has to sit more frequently. She notes that after her 7 hour work shift she will be limping on the right leg. She continues to have pain radiating into the buttock and back of the thigh after being on her feet for long periods. She report she is doing exercise 3- 4x/week at home focused on core strength. She reports that she will contact her doctor regarding MRI. Reported Pain Level Pain Score 2: Self Report Pain Score 2: Self Report Assessment PT Clinical Summary Pt. has attended a total of 12 treatment sessions. Treatment has focused on flexibility, postural awareness, endurance and core strength. She demonstrates only temporary relief of pain following treatment procedures. Given her continued pain recommend she follow up with her doctor to discuss if imaging of the lumbar spine is appropriate. Plan of Care PT Services Indicated No
== END 2024-06-16 11:09 | disposition home or self-care (01) ==
LOC: CHSPT 14:14
PROVIDERS: PCP Family Medicine; Visit Provider Family Medicine
DX: M54.31 Sciatica, right side (principal)
CPT/HCPCS: 97014; 97110; 97112; 97140; 97150; 97161; G0283

== ENCOUNTER 2024-05-12 16:04 | Outpatient (CLI) | payer BC, MEDICAID, SELFPAY ==
--- NOTE | ~2024-05-12 | XR_ITS ---
EXAMINATION: XR lumbar spine min 4V DATE: 05/12/2024 16:28 INDICATION: Right-sided sciatica. TECHNIQUE: 3 views of lumbar spine were obtained. COMPARISON: Thoracolumbar radiographs 02/13/2023, CT abdomen and pelvis 01/04/2024 FINDINGS: Alignment is normal. There are chronic bilateral L5 pars defects. There is mild chronic hei ght loss of L5 vertebral body posteriorly. Intervertebral disc heights are normal. The facet joints a re unremarkable. There is an intrauterine device in expected position. IMPRESSION: 1. Chronic bilateral L5 pars defects. Reviewed, dictated and finalized at location E.
== END 2024-05-12 16:05 | disposition home or self-care (01) ==
PROVIDERS: PCP Family Medicine; Visit Provider Family Medicine
DX: M54.31 Sciatica, right side (principal); M43.8X6 Other specified deforming dorsopathies, lumbar region
CPT/HCPCS: 72110

== ENCOUNTER 2024-06-25 14:45 | Emergency (ER) | payer BC, MEDICAID, SELFPAY ==
[2024-06-25 14:45] VITALS: BP 157/93; PULSE 98; RESP 18; TEMP 36.2; O2SAT 98
--- NOTE | 2024-06-25 14:50 | ED.EAR ---
HPI - Ear Problem General Chief complaint: Ear Stated complaint: headache, ear ache, throat pain Time Seen by Provider: 06/25/24 14:49 Source: patient Mode of arrival: ambulatory Limitations: no limitations History of Present Illness HPI Narrative: 23 year old female presents to the Emergency Department complaining of left ear pain x 5 days. States does have some dental pain left side and was told her molars were coming in. No runny nose or sinus drainage. State she was told several people at work were exposed or had Covid. No cough, chest congestion, nausea, vomiting, diarrhea Complaint: ear pain Location: left ear Duration: constant Severity: moderate Relieving factors: nothing Exacerbating factors: nothing Discharge from ear: Reports no Treatment prior to arrival: none Related Data Home Medications Medication Instructions Recorded Confirmed metformin 500 mg tablet 500 mg PO DAILY 07/22/23 05/03/24 semaglutide 0.25 mg or 0.5 mg (2 See Rx Instructions .Route .COMPLEX 01/04/24 05/03/24 mg/3 mL) subcutaneous pen injector (Ozempic) Allergies Allergy/AdvReac Type Severity Reaction Status Date / Time No Known Allergies Allergy Verified 06/25/24 14:52 Review of Systems Review of Systems: All systems reviewed & are unremarkable except as noted in HPI and below Constitutional: Constitutional: Reports as per HPI, Denies chills and Denies fever(s) Eyes: Eyes: Reports as per HPI ENT: Reports system reviewed and no additional complaints, except as documented, Denies nasal congestion and Denies sore throat Cardiovascular: Cardiovascular: Reports as per HPI and Denies chest pain Respiratory: Respiratory: Reports as per HPI, Denies cough and Denies dyspnea Gastrointestinal: Gastrointestinal: Reports as per HPI, Denies abdominal pain, Denies diarrhea, Denies nausea and Denies vomiting Genitourinary: Genitourinary: Reports no additional female genitourinary complaints Musculoskeletal: Musculoskeletal: Reports no additional musculoskeletal complaints Integumentary/Breasts: Skin/Breast: Reports system reviewed and no additional complaints, except as docu Neurologic: Reports system reviewed and no additional complaints, except as documented PMFSH Past Medical History Medical History Anxiety and depression Diabetes mellitus Menorrhagia Nonalcoholic liver disease, chronic Screen for STD (sexually transmitted disease) Vaginal delivery x1 Surgical History Surgical History History of tonsillectomy and adenoidectomy 2016? Family History Family History Father Hypertension Asthma Mother , 06/2021 Diabetes mellitus Heart failure Kidney disease Hypertension Asthma Grandparent Diabetes mellitus Heart problem Other Patient's mother is Social History Social History Smoking status: Former smoker Tobacco type: e-cigarettes/vaping Second hand tobacco smoke exposure: No Smoking end date: 10/03/21 Additional smoking assessment comments: quit when she found out she was Alcohol intake: current Alcohol use details: heavy drinker prior to find out she is Substance use: never Lack of Transportation: No Lack of Food: Never True Current Housing: I Have Housing Concerned About Future Housing: No Difficulty Paying Gas/Electric Bills: No Difficulty Paying for Meds: No Currently Unemployed: No Difficulty w/ Childcare or Family Care: No Living arrangements: with family Occupation/Education: occupation Additional occupation/education comments: [employer] Gender identity (if verbalized by the patient): Female Spiritual care concerns: No Exam Const: General: healthy appearing Nutritional Appear
[2024-06-25 15:43] LABS: SARS-CoV-2 RNA PCR Negative (Negative)
[2024-06-25 15:54] LABS: Influenza A QL RT-PCR Negative (Negative); Influenza B QL RT-PCR Negative (Negative)
[2024-06-25 16:03] VITALS: BP 157/99; PULSE 80; RESP 17; TEMP 36.6; O2SAT 100
== END 2024-06-25 16:03 | disposition home or self-care (01) ==
PROVIDERS: Emergency Provider Emergency Medicine; PCP Family Medicine
DX: H92.02 Otalgia, left ear (principal); J02.9 Acute pharyngitis, unspecified; E11.9 Type 2 diabetes mellitus without complications; Z87.891 Personal history of nicotine dependence; Z20.822 Contact with and (suspected) exposure to COVID-19
CPT/HCPCS: 87636; 99283

== ENCOUNTER 2024-07-01 08:07 | Outpatient (CLI) | payer BC, MEDICAID, SELFPAY ==
--- NOTE | ~2024-07-01 | MR_ITS ---
MRI of the lumbar spine Clinical History: Back pain Technique: Axial T2-weighted images, and sagittal T1-weighted, T2-weighted, and T2 fat-sat images wer e acquired. Findings: No fracture or subluxation of the lumbar spine seen. Vertebral bodies maintain normal heigh t and alignment. No suspicious progressive abnormality seen. At L1-L2, L2-L3, there is no disc bulge or herniation. No spinal canal stenosis or neural foraminal n arrowing at these levels. At L3-L4, there is central disc protrusion with mild effacement of the ventral thecal sac. There is m ild facet arthropathy. Neural foramina are preserved. At L4-L5, there is central disc protrusion with annular fissure. There is moderate facet arthropathy. There is minimal central canal stenosis. Neural foramina are preserved. At L5-S1, there is no disc bulge or herniation. No spinal canal stenosis or neural foraminal narrowin g. Paravertebral soft tissues are unremarkable. Impression: [id number] degenerative disc change at L3-L4 and L4-L5, as detailed above. Reviewed, dictated and finalized at location M. Impression: [id number] degenerative disc change at L3-L4 and L4-L5, as detailed above .
== END 2024-07-01 08:08 | disposition home or self-care (01) ==
LOC: CHSIMG 08:11
PROVIDERS: PCP Family Medicine; Visit Provider Family Medicine
DX: M54.41 Lumbago with sciatica, right side (principal); M51.36 Other intervertebral disc degeneration, lumbar region
CPT/HCPCS: 72148

== ENCOUNTER 2024-07-23 14:51 | Outpatient (RCR) | payer BC, MEDICAID, SELFPAY ==
--- NOTE | 2024-07-23 15:55 | OPREHPOC ---
Outpatient Therapy Plan of Care This is a Multidisciplinary Plan of Care that may contain components documented by all disciplines (PT, OT, and ST.) PT Problem 1 PT Problem #1 Knowledge Deficit PT Goal 1 Goal / Goal Update 1. independent and compliant with HEP Target Visit 6 PT Problem 2 PT Problem #2 Pain PT Goal 1 Goal / Goal Update 1. decrease pain at worst to 2/10 or less in the lower back. 2. no R LE radicular symptoms. Target Visit 12 PT Problem 3 PT Problem #3 Impaired Strength PT Goal 1 Goal / Goal Update 1. 5/5 bilateral hip strength 2. 4/5 or better core strength 3. patient to perform bridge holds in supine for 30 seconds without posture loss 4. patient to perform 1 sit up Target Visit 12 PT Problem 4 PT Problem #4 Impaired Range of Motion PT Goal 1 Goal / Goal Update 1. 100% active lumbar rom without increased pain Target Visit 12 PT Problem 5 PT Problem #5 Impaired Functional Mobil PT Goal 1 Goal / Goal Update 1. oswestry to display 10% or less functional deficits 2. patient to return to sitting and standing without time restrictions 3. patient to reach down to play with kids at home with hesitation 4. patient to perform safe lifting mechanics of 30lbs from floor to waist x10 without pain Target Visit 12
--- NOTE | 2024-07-23 15:55 | PTOPEVAL1 ---
Assessment and note entered by JT File, PT Evaluation Information Assessment Status Evaluation ICD-10 Condition Codes (PT) Pain in low back M54.50 Onset 07/15/24 Subjective Information patient reports she initially began to have back pain of insidious onset. she has tried out bout of therapy already for her back pain. patient reports since her last PT stent, she has had an MRI of the lumbar spine. MRI shows Mild-to- moderate degenerative disc change at L3-L4 and L4- L5 with disc protrusions at L3-4 and L4-5. she reports she continues to have pain with walking, sitting for long periods of time (30 minutes), bending forward to reach down to her kids, and lifting objects from the floor. she reports every so often she does continue to get sciatic like symptoms in the R LE. she reports she she does still work at [employer]. 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 Reported Pain Level Pain Score 1: Self Report Assessment PT Clinical Summary mrs. lewis is a 23 yo woman who presents to skilled PT services for her 2nd bout of skilled PT for her lower back pain. she has now had an MRI that reveals discoid changes in her lumbar spine. this, combined with her poor posture and core stability, are likely the reason for her lower back injury and continued pain/symptoms. she would benefit from continued skilled PT to address her objective/functional deficits and return to her prior level functional activity performance/ quality of life. Plan of Care Interventions Electrical Stimulation,Hot Pack/Cold Pack,Manual Therapy,Mechanical Traction,Neuro Re-education, Patient/Caregiver Educati,Therapeutic Activities, Therapeutic Exercise PT Services Indicated Yes Treatment Frequency and 3x weekly for 12 visits Duration These treatments will address the objective and functional deficits as defined above. The patient will be advanced safely and appropriately in order for the patient to progress towards his/her prior level of function. Additional exercises will be introduced and as well as a comprehensive home exercise program upon discharge, if needed, ?to ensure carryover of functional gains achieved in the clinic. This treatment plan has been reviewed and agreement upon by the patient.
--- NOTE | 2024-08-19 13:49 | OPREHPOC ---
Outpatient Therapy Plan of Care This is a Multidisciplinary Plan of Care that may contain components documented by all disciplines (PT, OT, and ST.) PT Problem 1 PT Problem #1 Knowledge Deficit PT Goal 1 Goal / Goal Update 1. independent and compliant with HEP Target Visit 6 Progress Met PT Problem 2 PT Problem #2 Pain PT Goal 1 Goal / Goal Update 1. decrease pain at worst to 2/10 or less in the lower back. 2. no R LE radicular symptoms. Target Visit 12 Progress Not Met PT Goal 2 Goal / Goal Update continue PT Problem 3 PT Problem #3 Impaired Strength PT Goal 1 Goal / Goal Update 1. 5/5 bilateral hip strength 2. 4/5 or better core strength 3. patient to perform bridge holds in supine for 30 seconds without posture loss 4. patient to perform 1 sit up Target Visit 12 Progress Not Met PT Goal 2 Goal / Goal Update continue PT Problem 4 PT Problem #4 Impaired Range of Motion PT Goal 1 Goal / Goal Update 1. 100% active lumbar rom without increased pain Target Visit 12 Progress Not Met PT Goal 2 Goal / Goal Update continue PT Problem 5 PT Problem #5 Impaired Functional Mobil PT Goal 1 Goal / Goal Update 1. oswestry to display 10% or less functional deficits 2. patient to return to sitting and standing without time restrictions 3. patient to reach down to play with kids at home with hesitation 4. patient to perform safe lifting mechanics of 30lbs from floor to waist x10 without pain Target Visit 12 Progress Not Met PT Goal 2 Goal / Goal Update continue
--- NOTE | 2024-08-19 13:49 | PTOPPROG ---
Assessment and note entered by Barbara Cardona, PT Evaluation Information Assessment Status Progress ICD-10 Condition Codes (PT) Pain in low back M54.50 Onset 07/15/24 Subjective Information Brandie Torres reports her lower back pain and right hip pain are a little better this week compared to last but she is still having a lot of pain. She reports pain has been limiting her ability to walk and she notes the pain sometimes goes down to her toes on the right side. Last week , she had an increase in pain for unknown reasons and she could not lift her toddler children. She went to the doctor and they gave her a tramadol injection and started her on tramadol pills as well. She was also referred to pain management and is waiting to get a call from pain management. Assessment PT Clinical Summary Brandie Torres has completed 10 skilled PT visits for lower back pain with radiculopathy into the right LE. She is reporting a slight improvement in pain this week after PT since she had an increase in pain last week. She was switched to flexion based exercises this week. She is demonstrating tenderness in right sided lumbosacral muscles, decreased and painful lumbar extension, and decreased core strength. She will continue to benefit from skilled PT to address these limitations. Plan of Care Interventions Electrical Stimulation,Hot Pack/Cold Pack,Manual Therapy,Patient/Caregiver Educati,Therapeutic Activities,Therapeutic Exercise PT Services Indicated Yes Treatment Frequency and Continue skilled PT per original POC for 2 Duration additional visits These treatments will address the objective and functional deficits as defined above. The patient will be advanced safely and appropriately in order for the patient to progress towards his/her prior level of function. Additional exercises will be introduced and as well as a comprehensive home exercise program upon discharge, if needed, ?to ensure carryover of functional gains achieved in the clinic. This treatment plan has been reviewed and agreement upon by the patient.
--- NOTE | 2024-08-25 14:01 | OPREHPOC ---
Outpatient Therapy Plan of Care This is a Multidisciplinary Plan of Care that may contain components documented by all disciplines (PT, OT, and ST.) PT Problem 1 PT Problem #1 Knowledge Deficit PT Goal 1 Goal / Goal Update 1. independent and compliant with HEP Target Visit 6 Progress Met PT Problem 2 PT Problem #2 Pain PT Goal 1 Goal / Goal Update 1. decrease pain at worst to 2/10 or less in the lower back. 2. no R LE radicular symptoms. Target Visit 12 Progress Not Met PT Goal 2 Goal / Goal Update . PT Problem 3 PT Problem #3 Impaired Strength PT Goal 1 Goal / Goal Update 1. 5/5 bilateral hip strength. not met 2. 4/5 or better core strength. not met 3. patient to perform bridge holds in supine for 30 seconds without posture loss. not met 4. patient to perform 1 sit up. not met Target Visit 12 Progress Not Met PT Goal 2 Goal / Goal Update . PT Problem 4 PT Problem #4 Impaired Range of Motion PT Goal 1 Goal / Goal Update 1. 100% active lumbar rom without increased pain Target Visit 12 Progress Not Met PT Goal 2 Goal / Goal Update . PT Problem 5 PT Problem #5 Impaired Functional Mobil PT Goal 1 Goal / Goal Update 1. oswestry to display 10% or less functional deficits 2. patient to return to sitting and standing without time restrictions 3. patient to reach down to play with kids at home with hesitation 4. patient to perform safe lifting mechanics of 30lbs from floor to waist x10 without pain Target Visit 12 Progress Not Met PT Goal 2 Goal / Goal Update .
--- NOTE | 2024-08-25 14:01 | PTOPDC ---
Assessment and note entered by JT File, PT Evaluation Information Assessment Status Discharge ICD-10 Condition Codes (PT) Pain in low back M54.50 Onset 07/15/24 Subjective Information patient reports she feels about the same today. she reports she does not feel much improvement or difference since beginning PT. she reports she is awaiting a return call to schedule her first pain management visit. Reported Pain Level Pain Score 2,2: Self Report Pain Score 4,3: Self Report Assessment PT Clinical Summary mrs. lewis presents to skilled PT services for her 12th skilled PT visit. she presents today with little improvement in symptoms and pain reports. she continues to have symptoms down the leg, and has not made significant progress towards goals yet. she will DC skilled PT at this time, and follow up with physician for referral to pain management. she was educated in HEP to continue at home. Plan of Care PT Services Indicated Yes
== END 2024-08-25 14:11 | disposition home or self-care (01) ==
LOC: CHSPT 14:51
PROVIDERS: Visit Provider Family Medicine
DX: M54.50 Low back pain, unspecified (principal)
CPT/HCPCS: 97014; 97110; 97140; 97161; 97530; G0283

== ENCOUNTER 2024-08-13 21:42 | Emergency (ER) | payer BC, MEDICAID, SELFPAY ==
[2024-08-13 21:58] VITALS: BP 119/76; PULSE 87; RESP 18; TEMP 36.4; O2SAT 95
--- NOTE | 2024-08-13 22:52 | ED.GENADULT ---
HPI - General Adult General Chief complaint: Back Pain/Injury Stated complaint: Lower Back Pain/Leg pain Source: patient Mode of arrival: ambulatory Limitations: no limitations History of Present Illness HPI narrative: 23-year-old white female with chronic low back pain radiating to the right leg. Goes to the physical therapy for the last 1-2 months. Takes Tylenol ibuprofen for pain. Physical therapist and wondered yesterday with why she has not been referred to pain management. Patient says she has a history of 3 disc that her back normal. She was here back in May for the same pain. Denies any weakness or numbness paresthesias problems walking talking seeing or hearing eating drinking voiding or stooling. She took 2 g of Tylenol today around 2:00 a.m.. Did take any ibuprofen because she ran out. Denies any other complaints. Related Data Allergies Allergy/AdvReac Type Severity Reaction Status Date / Time No Known Allergies Allergy Verified 06/25/24 14:52 Review of Systems Review of Systems: All systems reviewed & are unremarkable except as noted in HPI and below PMFSH Past Medical History Medical History Anxiety and depression Diabetes mellitus Menorrhagia Nonalcoholic liver disease, chronic Screen for STD (sexually transmitted disease) Vaginal delivery x1 Surgical History Surgical History History of tonsillectomy and adenoidectomy 2016? Family History Family History Father Hypertension Asthma Mother , 06/2021 Diabetes mellitus Heart failure Kidney disease Hypertension Asthma Grandparent Diabetes mellitus Heart problem Other Patient's mother is Social History Social History Smoking status: Former smoker Tobacco type: e-cigarettes/vaping Second hand tobacco smoke exposure: No Smoking end date: 10/03/21 Additional smoking assessment comments: quit when she found out she was Alcohol intake: current Alcohol use details: heavy drinker prior to find out she is Substance use: never Lack of Transportation: No Lack of Food: Never True Current Housing: I Have Housing Concerned About Future Housing: No Difficulty Paying Gas/Electric Bills: No Difficulty Paying for Meds: No Currently Unemployed: No Difficulty w/ Childcare or Family Care: No Living arrangements: with family Occupation/Education: occupation Additional occupation/education comments: [employer] Gender identity (if verbalized by the patient): Female Spiritual care concerns: No Exam Narrative: White female patient with no apparent distress At rest , but when she moves on the cart she looks little uncomfortable..? Head normocephalic, atraumatic.? Eyes conjunctiva pink sclera nonicteric.? Extraocular movements are intact.? Ears externally normal.? Oropharynx is clear with moist mucous membranes without exudates.? Neck is supple nontender no lymphadenopathy.? Back mild tenderness lumbar area with negative straight leg raise bilaterally.? Lungs are clear.? Heart is regular rate and rhythm without murmurs gallops or rubs.? Chest wall nontender. Abdomen is morbidly obese and soft and nontender no hepatosplenomegaly or masses no CVA tenderness no abdominal bruits.? Extremities no cyanosis clubbing or edema.? Skin is warm and dry without rashes or lesions.? Neurological patient is alert and oriented x4.? Motor and sensory grossly intact.? Gait is normal. Course Vital Signs Vital signs: Vital Signs Temperature 36.4 C L 08/13/24 21:58 Pulse Rate 87 08/13/24 21:58 Respiratory Rate 18 08/13/24 21:58 Blood Pressure 119/76 08/13/24 21:58 Pulse Oximetry 95 08/13/24 21:58 Oxygen Delivery Room Air 08/13/24
[2024-08-13] MEDS: KETOROLAC 30 MG/ML VIAL (*BKC) IM (23:22)
--- NOTE | 2024-08-14 00:18 | PC.NURSE ---
Pt sitting at bedside, states pain med helped a bit, wanting to know how much longer it will be. Pt states pain is down to 5 on PS.
[2024-08-14 00:38] VITALS: BP 139/89; PULSE 74; RESP 18; TEMP 36.7; O2SAT 97
== END 2024-08-14 00:38 | disposition home or self-care (01) ==
PROVIDERS: Emergency Provider Emergency Medicine; PCP Family Medicine
DX: M54.41 Lumbago with sciatica, right side (principal); E11.9 Type 2 diabetes mellitus without complications; Z87.891 Personal history of nicotine dependence
CPT/HCPCS: 96372; 99283; J1885

== ENCOUNTER 2024-10-10 18:23 | Emergency (ER) | payer BC, MEDICAID, SELFPAY ==
[2024-10-10] VITALS (7 sets, daily range): BP systolic 125–145; BP diastolic 71–95; PULSE 80–98; RESP 16–20; TEMP 36.4–36.8; O2SAT 97–100
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
== END 2024-10-10 20:35 | disposition home or self-care (01) ==
PROVIDERS: Emergency Provider Emergency Medicine; PCP Family Medicine
DX: T59.811A Toxic effect of smoke, accidental (unintentional), initial encounter (principal); R07.9 Chest pain, unspecified; E11.9 Type 2 diabetes mellitus without complications; Z87.891 Personal history of nicotine dependence; Z79.84 Long term (current) use of oral hypoglycemic drugs
CPT/HCPCS: 99281

== ENCOUNTER 2024-11-03 11:02 | Emergency (ER) | payer BC, MEDICAID, SELFPAY ==
[2024-11-03 11:09] VITALS: BP 149/98; PULSE 85; RESP 16; TEMP 36.5; O2SAT 98
--- NOTE | 2024-11-03 11:57 | ED_ITS ---
HPI - General Adult General Chief complaint: Upper Respiratory Infection Stated complaint: Congestion/Runny Nose/Sore Throat/Ear Problem Source: patient Mode of arrival: ambulatory Limitations: no limitations History of Present Illness HPI narrative: Patient presents for evaluation of sick symptoms for last 9 days. Symptoms include sinus congestion, mucopurulent discharge from the nares, sensation that her left ear is going to pop , left sided otalgia, chills, cough and nausea. Her partner is being evaluated here for similar symptoms. She went to an urgent care was told that she had allergies and was instructed to take allergy medication. That did not help. She does vape. Related Data Home Medications ?Medication ?Instructions ?Recorded ?Confirmed ?Last Taken ?Type metformin 500 mg tablet 500 mg PO BID 10/10/24 10/10/24 Unknown History semaglutide 0.25 mg or 0.5 mg (2 0.25 mg subcut WEEKLY 10/10/24 10/10/24 Unknown History mg/3 mL) subcutaneous pen injector (Ozempic) Allergies Allergy/AdvReac Type Severity Reaction Status Date / Time No Known Allergies Allergy Verified 11/03/24 11:35 Review of Systems Review of Systems: CONSTITUTIONAL: Reports chills. Denies fever or sweats. EYES: Denies visual changes, redness, or discharge. ENT: Reports sinus congestion, mucopurulent discharge from the nares, sensation that her left ear is going to ?pop? and left sided otalgia CARDIOVASCULAR: Denies chest pain, palpitations, or edema. RESPIRATORY: Reports cough. Denies SOB GASTROINTESTINAL: Reports nausea. Denies abdominal pain, vomiting, or diarrhea. GENITOURINARY: Denies dysuria or hematuria. SKIN: Denies rash or itching. MUSCULOSKELETAL: Denies back pain, joint pain, or myalgia. NEUROLOGIC: Denies headache, numbness, dizziness, or weakness. PSYCHIATRIC: Denies anxiety or depression. [facility] Past Medical History Medical History Screen for STD (sexually transmitted disease) Diabetes mellitus Menorrhagia Vaginal delivery x1 Nonalcoholic liver disease, chronic Anxiety and depression Surgical History Surgical History History of tonsillectomy and adenoidectomy 2016? Family History Family History Father Hypertension Asthma Mother , 06/2021 Diabetes mellitus Heart failure Kidney disease Hypertension Asthma Grandparent Diabetes mellitus Heart problem Other Patient's mother is Social History Social History Smoking status: Former smoker Tobacco type: e-cigarettes/vaping Second hand tobacco smoke exposure: No Smoking end date: 10/03/21 Additional smoking assessment comments: quit when she found out she was Alcohol intake: current Alcohol use details: heavy drinker prior to find out she is Substance use: never Lack of Transportation: No Lack of Food: Never True Current Housing: I Have Housing Concerned About Future Housing: No Difficulty Paying Gas/Electric Bills: No Difficulty Paying for Meds: No Currently Unemployed: No Difficulty w/ Childcare or Family Care: No Living arrangements: with family Occupation/Education: occupation Additional occupation/education comments: [employer] Gender identity (if verbalized by the patient): Female Spiritual care concerns: No Exam Narrative: GENERAL: Well-appearing, well-nourished, and in no acute distress. HEAD: Normocephalic, atraumatic. EYES: PERRLA and EOMI. ENT: Nares clear, no rhinorrhea or epistaxis. Mucous membranes moist. Oropharynx without tonsillar hypertrophy exudate or other lesions. Left ear canal is ceruminous. Left tympanic membrane is bulging NECK: Supple. No adenopathy or masses. No carotid bruits or JVD CHEST: Clear to auscultation. No respiratory distress. No wheezes rales or rhonchi HEART: Regular rate and rhythm. No murmur heard. Normal peripheral pulses. ABDOMEN: Soft, nontender, nondistended, normal active bowel sounds. EXTREMITIES: Normal range of motion. No edema. SKIN: Warm, dry, no rash. NEURO: No focal deficits. Alert and oriented x3. PSYCH: Normal mood and affect. Course Course Emergency Course: This is a 23-year-old female who presented for evaluation of sick symptoms. She meets criteria for ABRS based upon time in which she has been symptomatic and mucopurulent nature of her nasal drainage. Will discharge with Augmentin. Increase hydration. Advised on smoking cessation. [id number] agents for symptom management. Follow with primary provider. Go to the ER for worsening symptoms. Patient in agreement with plan of care. Level of Care: Express Care Visit Vital Signs Vital signs: Vital Signs Temperature 36.5 C 11/03/24 11:09 Pulse Rate 85 11/03/24 11:09 Respiratory Rate 16 11/03/24 11:09 Blood Pressure 149/98 H 11/03/24 11:09 Pulse Oximetry 98 11/03/24 11:09 Oxygen Delivery Room Air 11/03/24 11:09 Temperature 36.5 C 11/03/24 11:09 Pulse Rate 85 11/03/24 11:09 Respiratory Rate 16 11/03/24 11:09 Blood Pressure 149/98 H 11/03/24 11:09 Pulse Oximetry 98 11/03/24 11:09 Oxygen Delivery Room Air 11/03/24 11:09 Medical Decision Making Vital Signs Vital Signs: Vital Signs Temperature 36.5 C 11/03/24 11:09 Pulse Rate 85 11/03/24 11:09 Respiratory Rate 16 11/03/24 11:09 Blood Pressure 149/98 H 11/03/24 11:09 Pulse Oximetry 98 11/03/24 11:09 Oxygen Delivery Room Air 11/03/24 11:09 Temperature 36.5 C 11/03/24 11:09 Pulse Rate 85 11/03/24 11:09 Respiratory Rate 16 11/03/24 11:09 Blood Pressure 149/98 H 11/03/24 11:09 Pulse Oximetry 98 11/03/24 11:09 Oxygen Delivery Room Air 11/03/24 11:09 Discharge Plan Discharge Clinical Impression: Sinusitis, Acute otitis media, left Patient Disposition: Home, Self-Care Condition: Stable Instructions: Antibiotic Form, Sinusitis (ED), Ear Infection (GEN) Patient Language: Kiswahili Prescriptions: New amoxicillin-pot clavulanate 875-125 mg tablet 1 tablet PO Q12H Qty: 20 0RF No Action metformin 500 mg tablet 500 mg PO BID Ozempic 0.25 mg or 0.5 mg (2 mg/3 mL) pen injector 0.25 mg SUBCUT WEEKLY Follow-up/Referrals: Harms,Uriel Sánchez M.D. [Primary Care Provider] - Time of Disposition: 11:56
--- OUTSIDE RECORDS SUMMARY | 2024-11-10 05:55 | XMS_ITS | Continuity of Care Document ---
Author Organization [facility] Address [address] [place] [address] Care Team Providers Care Hammerer Name Role Phone Harms, Nathaly Sánchez Primary Care Provider MD Rufus Sherman Emergency Provider Harms, Nathaly Sánchez Attending Provider [phone] MD Reese Dias Emergency Provider UNKNOWN, DOCTOR Primary Care Provider MD Dillon Paulino Emergency Provider Care Teams Patient Care Team Team Status: Active Member Role Status Dates Omega Colon MD Family Provider Active Uriel Walker , M[place] Primary Care Provider Active Visit Care Team Team Status: Inactive Member Role Status Sumit Walker , MOrlando Primary Care Provider Active Rufus Sherman MD Emergency Provider Active Visit Care Team Team Status: Inactive Member Role Status Sumit Walker , M.Carmen. Primary Care Provider, Attend ing Provider Active Visit Care Team Team Status: Inactive Member Role Status Sumit Walker , M.Wilberto Primary Care Provider, Attend ing Provider Active Visit Care Team Team Status: Inactive Member Role Status Sumit Walker , MOr[place] Primary Care Provider, Attend ing Provider Active Visit Care Team Team Status: Inactive Member Role Status Sumit Walker , MOr[place] Primary Care Provider Active Dillon Gagnon MD Emergency Provider Active Visit Care Team Team Status: Inactive Member Role Status Sumit Walker , Nathaly Primary Care Provider Active Reese Dias MD Emergency Provider Active Visit Care Team Team Status: Active Member Role Status Dates Uriel Walker , Nathaly Attending Provider Active DOCTOR UNKNOWN Primary Care Provider Active Chief Complaint and Reason for Visit Chief Complaint sciatica pain Sciatica pain M54.31 headache, ear ache, throat pain acute right sided low back pain with right sided Acute Bilateral low back pain without sciatica Lower Back Pain/Leg pain Allergies, Adverse Reactions, Alerts No known allergies Social History Smoking Status Status Start Date End Date Date of Observa tion Ex-smoker (finding) October 03, 2021 Se ptember 2022 3:49pm Observation Status Observation Response Date of Response Has Lack of Trans Kept You F rom Med Appts or Getting Meds? No July 22, 2023 3:49pm In Past 12 Months, Were You Worried Your Food Would Run Out? Never True July 22, 2023 3:49pm What is Your Housing Situation Today? I Have Niki sing July 22, 2023 3:49pm Gender Identity (if Verbaliz ed by the Patient) Female July 22, 2023 3:49pm Sexual Orientation (if Verba lized by the Patient) July 22, 2023 3:49pm Are You Worried That in Next 2 Mo, You Won't Have Housing? No July 22, 2023 3:49pm Do You Have Trouble Paying Y our Heating Or Electricity Bill? No July 22, 2023 3:49pm Do You Have Trouble Paying For Medicines? No July 22, 2023 3:49pm Are You Currently Unemployed and Looking for Work? No July 22, 2023 3:49pm Do You Have Trouble With Chi ldcare/Care of a Family Member? No July 22, 2023 3:49pm alcohol intake current July 22, 2023 3:49pm Additional Data Assigned Sex Female Gender Identity Cisgender/Not transg dagoberto (finding) Family History Relationship Condition Age at Onset Recorded Date/T patrick Not Specified Patient's mother is Unknown father Hypertension Unknown Asthma Unknown mother Diabetes mellitus Unknown Heart failure Unknown Kidney disorder Unknown Hypertension Unknown Asthma Unknown grandparent Diabetes mellitus Unknown Heart problem Unknown Problems Active Problems Medical Problem Onset Date Status IUD surveillance Active Acute back pain Active depression Active Encounter for induction of labor Active contractions Active Status post fall Active labor Active Menorrhagia Active Chronic low back pain Active Delivery normal Active Endometritis Active Encounter for visit A ctive Headache Active Screen for STD (sexually transmitted disease) Active Encounter for supervision of normal in multigravida in third trimester Active Encounter for supervision of high risk in third trimester, antepartum Active delivery Active Pelvic pain affecting Active Abnormal glucose tolerance test (GTT) during pre gnancy, antepartum Active Gestational diabetes mellitus (GDM) Active Elevated blood pressure affecting , ant epartum Active History of gestational diabetes Active Morbid obesity with BMI of 45.0-49.9, adult Active Anxiety and depression Active Normal spontaneous vaginal delivery Active Late care Active Acute low back pain Active Abrasion of hand Active Gestational hypertension affecting first pregnan cy Active Gestational diabetes mellitus (GDM) affecting fi rst Active Nausea & vomiting Active Encounter for IUD insertion Acti ve Right wrist sprain Active Contact dermatitis Active Inactive/Resolved Problems Medical Problem Onset Date Status Abdominal pain, right upper quadrant Resolved UTI (urinary tract infection) Re solved UTI (urinary tract infection) Re solved Drug side effects Resolved Sciatica Resolved Upper respiratory infection Reso lved Acute upper respiratory infection Resolved Diabetes mellitus Resolved Back strain Resolved Back strain Resolved Acute ankle pain Resolved Heat exhaustion Resolved Menorrhagia due to intrauterine device (IUD) Resolved Asymptomatic bacteriuria during Resolved Viral syndrome Resolved Vagina bleeding Resolved Otalgia of left ear Resolved Nausea & vomiting Resolved Abdominal pain Resolved Abdominal pain Resolved Fall Resolved Medications Medication Status Dose Units Route Directions Qty Days St art Date End Date Instructions Cyclobenzaprine Active 10 MG PO THRE E TIMES A DAY August 14, 2024 12:00am Tramadol Active 50 MG PO THREE TIME S A DAY August 14, 2024 12:00am Immunizations Immunization Event Date Not Given Reason Dose Number [employer] Lot Number Vaccine Information Statement (VIS) Detail Haemoph B Poly Conj-Tet Tox January 11, 2002 Haemoph B Poly Conj-Tet Tox March 16, 2002 Haemoph B Poly Conj-Tet Tox May 26, 2003 Meningococcal B, OMV July 15, 2019 DTaP January 11, 2002 DTaP March 16, 2002 DTaP May 23, 2002 DTaP May 26, 2003 DTaP February 06, 2007 Fluarix Quad 6m+ July 15, 2019 Hepatitis A Vaccine, Adol/Ped Dosage December 16, 2005 Hepatitis A Vaccine, Adol/Ped Dosage February 06, 2007 Hepatitis B Vaccine, Adol/Ped Dosage 2001 Hepatitis B Vaccine, Adol/Ped Dosage 2001 Hepatitis B Vaccine, Adol/Ped Dosage August 30, 2002 Hib, PRP-OMP Conjugate May 23, 2002 Human Papillomavirus Vaccine, quadrivalent May 07, 2013 Human Papillomavirus, 9 Valent April 23, 2016 Inactivated Poliovirus Vaccine January 11, 2002 Inactivated Poliovirus Vaccine March 16, 2002 Inactivated Poliovirus Vaccine February 14, 2003 Inactivated Poliovirus Vaccine February 06, 2007 Meningococcal Conjugate Vaccine, Quadrivalent May 07, 2013 Measles, Mumps, and Rubella Virus Vaccine November 15, 2002 Measles, Mumps, Rubella, and Varicella February 06, 2007 Tetanus, Diphtheria, Pertussis (Tdap) August 03, 2021 [id number] Tetanus, Diphtheria, Pertussis (Tdap) May 07, 2013 Tetanus, Diphtheria, Pertussis (Tdap) May 25, 2022 [id number] Varicella Virus Vaccine February 14, 2003 Relevant Diagnostic Tests and/or Laboratory Data Laboratory Results Test Date/Time Result Interpretation Reference Range Result Comment Performing Site SARS-CoV-2 RNA (RT-PCR) June 25, 2024 3:05pm Negative Negative The Xpert SARS-CoV-2/Flu/RS V test is an automated in vitro diagnostic test for qualitative detection and differentiation of RNA from Flu A, Flu B, RSV and SARS-CoV-2 virus. The Xpert SARS-CoV-2/FLU/RS V test is performed o [employer] systems using RT-PCR.This test has been authorized by FDA under an EUA for use by authorized labarotories. [facility] [id number] [address] [facility] [address] Influenza Type B (RT-PCR) June 25, 2024 3:05pm Negative Negative The test is performed on the [employer] Dx System and utilized automated real-time polymerase chain reaction (PCR) to detect presence of the Influenza A and/or Influenza B virus. Positive results are indicative of the presence of the identified virus but cannot rule out bacterial infection or co-infection with other pathogens not detected by the test. Negative should not be used as the sole basis for treatment or other patient management decisions. Negative results must be combined with clinical observations, patient history, and/or epidemiological information. [facility] [id number] [address] [facility] [address] Influenza Type A (RT-PCR) June 25, 2024 3:05pm Negative Negative The test is performed on the [employer] GeneXpert Dx System and utilized automated real-time polymerase chain reaction (PCR) to detect presence of the Influenza A and/or Influenza B virus. Positive results are indicative of the presence of the identified virus but cannot rule out bacterial infection or co-infection with other pathogens not detected by the test. Negative should not be used as the sole basis for treatment or other patient management decisions. Negative results must be combined with clinical observations, patient history, and/or epidemiological information. [facility] [id number] [address] [facility] [address] Vital Signs Vital Reading Result Reference Range Collection Date/Time Height 65 [in_i] May 03, 2024 11:10pm Weight 132.10 kg May 03, 2024 11:10pm Body Temperature 97.1 [degF] 97.6-99.6 May 03, 2 024 11:10pm Heart Rate 89 /min 60-100 May 03, 2024 11:10pm Respiratory rate 18 /min -May 03 2 024 11:10pm Oxygen saturation by Pulse oximetry 97 % 90-100 May 03, 2024 11:10 pm BP Systolic 148 mm[Hg] 100-140 May 03, 2024 11:10pm BP Diastolic 93 mm[Hg] 60-90 May 03, 2024 11:10pm Height 65 [in_i] June 25 2:45pm Weight 128.00 kg June 25 2:45pm Body Temperature 97.8 [degF] 97.6-99.6 June 4:03pm Heart Rate 80 /min 60-100 June 25 4:03pm Respiratory rate 17 /min -June 4:03pm Oxygen saturation by Pulse oximetry 100 % 90-100 June 25, 2024 4: 03pm BP Systolic 157 mm[Hg] 100-140 June 25 4:03pm BP Diastolic 99 mm[Hg] 60-90 June 25 4:03pm Height 65 [in_i] August 13, 2 024 9:58pm Weight 128.20 kg August 13 2 024 9:58pm Body Temperature 98.1 [degF] 97.6-99.6 August 12:38am Heart Rate 74 /min 60-100 August 14, 024 12:38am Respiratory rate 18 /min -August 12:38am Oxygen saturation by Pulse oximetry 97 % 90-100 August 14, 2024 1 2:38am BP Systolic 139 mm[Hg] 100-140 August 14, 2 024 12:38am BP Diastolic 89 mm[Hg] 60-90 August 14 2 024 12:38am Insurance Providers Guarantor Brandie Torres Address [address] [facility] [address] Contact Info. Home Phone: Payer Policy Id Coverage Id Subscriber's Name Subscriber Id Effective Date Expiration Date of [place] [id number] 001 Fredy Trevizo [id number] 2016 [place] [id number] Fredy Trevizo [id number] [place] [id number] Brandie Torres [id number] 2018 Community Health Plan [id number] Brandie Torres [id number] Self Pay Self N/A Encounters Encounter Location(s) Arrival/Admit Date Discharge/Depart Date Provider(s) Departed [facility] Emergency Department May 03, 2024 11:08pm May 03, 2024 11:53pm null Discharged [facility] Physical Therapy May 12, 2024 2:14pm June 16, 2024 11:09am Uriel Walker MD Departed [facility] Imaging May 12, 2024 4:04pm May 12, 2024 4:05pm Uriel Walker MD Departed [facility] Emergency Department June 25, 2024 2:45pm June 25, 2024 4:03pm null Departed [facility] Imaging July 01, 2024 8:07am July 01, 2024 8:08am Uriel Walker , Registered [facility] Physical Therapy July 23, 2024 2:51pm Uriel Walker MD Departed Emergency [facility] Emergency Department August 13, 2024 9:42pm August 14, 2024 12:38am null Mental Status Observation Response Date Recorded patient oriented x3 Yes May 03 11:28pm patient oriented x3 Yes June 25, 2024 3:28pm Plan of Treatment Future Tests Future scheduled test information is unavailable Pending Tests Pending diagnostic test information is unavailable Future Visits Future appointment information is unavailable Referrals to Other Providers Reason for Referral Referral Start Date Provider Provider Contact Information Provider Address Uriel Walker , Work Phone: [address] [facility] [address] Uriel Walker , Work Phone: [address] [facility] [address] Uriel Walker , Work Phone: [address] [facility] [address] Future Procedures Future procedure information is unavailable Future Medications Future medication information is unavailable Patient Instructions Antibiotic Form Sciatica (ED) Acute Low Back Pain (ED) Antibiotic Form Earache (ED) Acute Low Back Pain (ED) Hospital Discharge Instructions Additional Instructions Flexeril 10 mg 3 times a day as needed for pain. Tramadol 50 mg 3 times a day as needed for pain. Tylenol and or ibuprofen as needed for pain. Follow-up with primary care provider next week on Friday in 2 days return if you get worse or develops any new symptoms. Low heating pad and or ice packs as discussed for 20 minutes. Progress Note Author Dillon Gagnon [facility] August 14, 2024 12:35am Note Date/Time August 13, 2024 1 0:52pm [address] [place] [address] Emergency Room Visit Note Signed Patient: Brandie Torres MR#: [id number] : 2000 Acct:[id number] Age: 23 ADM Date: 08/13/24 [facility] Attending Dr: cc: Dillon Gagnon MD; Harms, Uriel Sánchez MD~ HPI - General Adult General Chief complaint: Back Pain/Injury Stated complaint: Lower Back Pain/Leg pain Source: patient Mode of arrival: ambulatory Limitations: no limitations History of Present Illness HPI narrative: 23-year-old white female with chronic low back pain radiating to the right leg. Goes to the physical therapy for the last 1-2 months. Takes Tylenol ibuprofen for pain. Physical therapist and wondered yesterday with why she has not been referred to pain management. Patient says she has a history of 3 disc that her back normal. She was here back in May for the same pain. Denies any weaknessor numbness paresthesias problems walking talking seeing or hearing eating drinking voiding or stooling. She took 2 g of Tylenol today around 2:00 a.m.. Did take any ibuprofen because she ran out. Denies any other complaints. Related Data Allergies Allergy/AdvReac Type Severity Reaction Status Date / Time No Known Allergies Allergy Verified 06/25/24 14:52 Review of Systems Review of Systems: All systems reviewed & are unremarkable except as noted in HPI and below PMFSH Past Medical History Medical History Anxiety and depression Diabetes mellitus Menorrhagia Nonalcoholic liver disease, chronic Screen for STD (sexually transmitted disease) Vaginal delivery x1 Surgical History Surgical History History of tonsillectomy and adenoidectomy 2016? Family History Family History Father Hypertension Asthma Mother , 06/2021 Diabetes mellitus Heart failure Kidney disease Hypertension Asthma Grandparent Diabetes mellitus Heart problem Other Patient's mother is Social History Social History Smoking status: Former smoker Tobacco type: e-cigarettes/vaping Second hand tobacco smoke exposure: No Smoking end date: 10/03/21 Additional smoking assessment comments: quit when she found out she was Alcohol intake: current Alcohol use details: heavy drinker prior to find out she is Substance use: never Lack of Transportation: No Lack of Food: Never True Current Housing: I Have Housing Concerned About Future Housing: No Difficulty Paying Gas/Electric Bills: No Difficulty Paying for Meds: No Currently Unemployed: No Difficulty w/ Childcare or Family Care: No Living arrangements: with family Occupation/Education: occupation Additional occupation/education comments: [employer] Gender identity (if verbalized by the patient): Female Spiritual care concerns: No Exam Narrative: White female patient with no apparent distress At rest , but when she moves on the cart she looks little uncomfortable..??? Head normocephalic, atraumatic.??? Eyesconjunctiva pink sclera nonicteric.??? Extraocular movements are intact.??? Ears externally normal.??? Oropharynx is clear with moist mucous membranes without exudates.??? Neck is supple nontender no lymphadenopathy.??? Back mild tenderness lumbar area with negative straight leg raise bilaterally.??? Lungs are clear.??? Heart is regular rate and rhythm without murmurs gallops or rubs.??? Chest wall nontender. Abdomen is morbidly obese and soft and nontender no hepatosplenomegaly or masses no CVA tenderness no abdominal bruits.??? Extremities no cyanosis clubbing or edema.??? Skin is warm and dry without rashes or lesions.??? Neurological patient is alert and oriented x4.??? Motor and sensory grossly intact.??? Gait is normal. Course Vital Signs Vital signs: Vital Signs Temperature 36.4 C L 08/13/24 21:58 Pulse Rate 87 08/13/24 21:58 Respiratory Rate 18 08/13/24 21:58 Blood Pressure 119/76 08/13/24 21:58 Pulse Oximetry 95 08/13/24 21:58 Oxygen Delivery Room Air 08/13/24 21:58 Temperature 36.4 C L 08/13/24 21:58 Pulse Rate 87 08/13/24 21:58 Respiratory Rate 18 08/13/24 21:58 Blood Pressure 119/76 08/13/24 21:58 Pulse Oximetry 95 08/13/24 21:58 Oxygen Delivery Room Air 08/13/24 21:58 Medical Decision Making MDM Narrative Medical decision making narrative: Patient was placed in Room # 2 with her History and physical was performed. Independent Historian: External Source Review: patient was seen in May for the same pain given Toradoltramadol and Flexeril. She had a MRI of her lumbar area August 01 showing At L3-L4, there is central disc protrusion with mild effacement of the ventral thecal sac. There is mild facet arthropathy. Neural foramina are preserved. At L4-L5, there is central disc protrusion with annular fissure. There is moderate facet arthropathy. There is minimal central canal stenosis. Neural foramina are preserved. At L5-S1, there is no disc bulge or herniation. No spinal canal stenosis or neural foraminal narrowing. Paravertebral soft tissues are unremarkable. Impression: [id number] degenerative disc change at L3-L4 and L4-L5, as detailed above. Differential Dx includes but not limited to: degenerative disc disease back strain sciatica Medications were Reviewed: home meds Independently Interpreted by me: Meds, treatment, ED course: Toradol 30 mg IM Social Situation Impacting Patients Care: Chronic back pain getting physical therapy Shared decision Making: evaluation was discussed all questions were asked and answered patient agreed with the plan. tramadol 50 mg 3 times a day Flexeril 10 mg 3 times a day as needed ice packs and her low heating pad follow up with primary care provider 2 days. DISCHARGE DIAGNOSIS: acute on chronic back pain DISPOSITION: discharge CONDITION AT DISCHARGE: stable Vital Signs Vital Signs: Vital Signs Temperature 36.4 C L 08/13/24 21:58 Pulse Rate 87 08/13/24 21:58 Respiratory Rate 18 08/13/24 21:58 Blood Pressure 119/76 08/13/24 21:58 Pulse Oximetry 95 08/13/24 21:58 Oxygen Delivery Room Air 08/13/24 21:58 Temperature 36.4 C L 08/13/24 21:58 Pulse Rate 87 08/13/24 21:58 Respiratory Rate 18 08/13/24 21:58 Blood Pressure 119/76 08/13/24 21:58 Pulse Oximetry 95 08/13/24 21:58 Oxygen Delivery Room Air 08/13/24 21:58 Discharge Plan Discharge Clinical Impression: Acute low back pain Qualifiers: Back pain laterality: right Sciatica presence: with sciatica Sciatica laterality: sciatica of right side Qualified Code(s): M54.41 - Lumbago with sciatica, right side Chronic low back pain Qualifiers: Back pain laterality: right Sciatica presence: with sciatica Sciatica laterality: sciatica of right side Qualified Code(s): M54.41 - Lumbago with sciatica, right side Patient Disposition: Home, Self-Care Condition: Stable Instructions: Acute Low Back Pain (ED) Additional Instructions: Flexeril 10 mg 3 times a day as needed for pain. Tramadol 50 mg 3 times a day as needed for pain. Tylenol and or ibuprofen as needed for pain. Follow-up with primary care provider next week on Friday in 2 days return if you get worseor develops any new symptoms. Low heating pad and or ice packs as discussed for20 minutes. Prescriptions: New cyclobenzaprine 10 mg tablet 10 mg PO TID Qty: 12 0RF tramadol 50 mg tablet 50 mg PO TID PRN (Reason: pain) Qty: 12 0RF Follow-up/Referrals: Denise,Uriel Sánchez M.D. [Primary Care Provider] - Time of Disposition: 00:32 This report may have been done utilizing a voice recognition system. Attempts have been made to correct errors. However, there may be uncorrected grammatical,spelling, and recognition errors present. Report Initialized date/time: Dillon Gagnon MD 08/13/24 [id number] Electronically signed by: Dillon aGgnon MD 08/14/24 0035
--- OUTSIDE RECORDS SUMMARY | 2024-11-10 05:56 | XMS_ITS | Encounter Summary ---
Author Organization [facility] Address [address] [place] [address] Care Team Providers Care Head Buyer Tobacco Name Role Phone Christine Peterson MD Primary Care Provider [phone] Reason for Visit * Reason Onset Date Comments Diabetes Focus Follow-up 04/23/2022 Encounter Details Date Type Department Care Team (Late st Contact Info) Description 04/23/2022 Telephone [facility] [address] [place] [address] Jerrica Petersen, public relations representative Focus Follow-up Social History Tobacco Use Types Packs/Day Years Used Date Smoking Tobacco: Former Cigarettes Smokeless Tobacco: Former Chew Alcohol Use Standard Drinks/Week Comments Not Currently 0 (1 standard drink = 0.6 oz pur e alcohol) Comments Yes Sex and Gender Information Value Date Recorded Sex Assigned at Not on file Gender Identity Not on file Sexual Orientation Not on file documented as of this encounter Miscellaneous Notes * Telephone Encounter - Jerrica Petersen, RN - 04/23/2022 2:54 PM CDT Diabetes Self Management Education and Support: Brandie Torres is a 21 year old [id number] Estimated Date of Delivery: 06/17/22 Patient missed follow up visit with [facility] today. Called and left message with patient to call us back re: blood sugar logs. Jerrica Petersen, MSN, RN, CDECS documented in this encounter Plan of Treatment Not on file documented as of this encounter Visit Diagnoses Not on filedocumented in this encounter Care Teams Head Buyer Tobacco Relationship Specialty Start Date End Date Christine Peterson MD [address] [address] PCP - General Pediatrics 07/29/18 documented as of this encounter
--- OUTSIDE RECORDS SUMMARY | 2024-11-10 05:56 | XMS_ITS | Encounter Summary ---
Author Organization [facility] Health Address [address] [place] [address] Care Team Providers Care Record Keeper Name Role Phone Christine Peterson MD Primary Care Provider [phone] Encounter Details Date Type Department Care Team (Late st Contact Info) Description 05/04/2024 3:40 PM CDT Video Visit [facility] [address] [id number] Marija Cooper, TIFFANIE-MANAGER SERVICE DESK [address] [facility] [place] [phone] ERRONEOUS ENCOUNTER--DISREGARD Social History Tobacco Use Types Packs/Day Years Used Date Smoking Tobacco: Former Cigarettes Smokeless Tobacco: Former Chew Alcohol Use Standard Drinks/Week Comments Not Currently 0 (1 standard drink = 0.6 oz pur e alcohol) Sex and Gender Information Value Date Recorded Sex Assigned at Not on file Gender Identity Not on file Sexual Orientation Not on file documented as of this encounter Progress Notes * Marija Cooper APRN-CNP - 05/04/2024 3:35 PM CDT Source of information obtained from patient. Pt. is a 23 year old White/ female with PMH as indicated below, who presents to [facility] today for right low back pain x 2 years intermittently. Says this flare up has been going on x 2 months. denies injury or new activity. States sit with legs crossed improves the pain. Reports walking, prolonged sitting or bending worsens the pain. reports radiation of pain into right hip. Reports history of back pain. denies dysuria, frequency, urgency of urination. denies loss of bowel or bladder control or numbness in the groin area. Patient reports no fever/chills, N/V/D and/or abdominal pain. No reports of shortness of breath/difficulty breathing or chest pain. She went to the ED for back pain last night. She was told she had a bulging disc. She was given twoshots (unknown medicine) and prescriptions for tramadol and flexeril. She has not taken the medication yet. States she was calling this virtual department because she was advised by the ED physician to follow up with her doctor. Then states that she is confused and thought this was her primary carephysician's office that she had an appointment scheduled for. States she has been on my chart trying to get to her primary care physician follow-up video appointment today. Advised the patient to call the doctor's office for better instruction on getting into their video system. Erroneous encounter. documented in this encounter Plan of Treatment Not on file documented as of this encounter Visit Diagnoses Diagnosis ERRONEOUS ENCOUNTER--DISREGARD- Primary documented in this encounter Care Teams Record Keeper Relationship Specialty Start Date End Date Christine Peterson MD [address] [place] [id number] PCP - General Pediatrics 07/29/18 documented as of this encounter
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
--- OUTSIDE RECORDS SUMMARY | 2024-11-10 05:56 | XMS_ITS | Referral Summary ---
Author Organization [facility] Address [address] [place] [address] Care Team Providers Care Clinical Laboratory Technician Name Role Phone Christine Peterson MD Primary Care Provider [phone] [facility],non-owned Affiliates and Associated Physician Practices is amultiple site organization consisting of ambulatory clinics and hospital sitesin [place], [place], [place] and [place]. This disclosure is being madepursuant to the Care Everywhere program and may not contain all information available regarding this patient. Last updated 18.[facility] Allergies No known active allergies Medications * [...] Glucagon (BAQSIMI ONE PACK) 3 MG/DOSE POWD Painter 3 mg into the nose as needed [...] and anxiety without thoughts of self harm. [facility] recommendations: 1. I reviewed the risks to [...] in the breast milk. 3. Recommend alerting Luggage Attendant at delivery hospital and for to be [...] from birthweights. I advised Brandie that the [employer] recommends delivery [...] sweetened beverages. 3. Close contact with our tobacco educator to optimize glycemic control on at least [...] glycemic control and surveillance. 9. After hours [facility] triage number provided to call with concerns. 10. Sent with labs today for repeat HgA1c and CMP. Family history of congenital heart defect 2020 Overview (03/26/2021): FOB with hypoplastic left heart. 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 Normal echocardiogram with [facility]. Resolved Problems Problem Noted Date Diagnosed Date Resolved Date Dysuria during in third trimester 06/13/2021 04/30/2022 Assessment & Plan (06/13/2021 5:00 PM CDT): Dysuria present intermittently with 1+ urine protein, patient is normotensive. Reports UTI that was treated in the 2nd trimester. [facility] recommendations: 1. Sent with lab requisition to have UA and culture collected at local lab today. 2. Alert OB if worsening symptoms before results. Supervision of normal first 03/26/2021 04/30/2022 Overview (03/26/2021): O Neg; AB: Neg, Immune, Rpr: NR, HIV: NR, Hbsag: NR H/h/p: 13.1 / 39.8 / 401 Elevated hemoglobin A1c 05/22/201603/04 Overview (08/25/2018): May 04, 2016 ([facility] in [place], [place]) hemoglobin A1c 6.2% (< 5.7), TSH 2.75 uIU/mL (0.465-4.68), free T4 0.96 ng/dL (0.78-2.19), ALT 24 U/L (9-52), cholesterol 160 mg/dL (200); triglyceride 117 mg/dL (< 150), HDL-cholesterol 45 mg/dL (> 35), LDL-cholesterol 81 mg/dL (< 130) May 22, 2018 - hemoglobin A1c 5.8% ([facility]) Jul, 2018 - elevated hemoglobin A1c at well children's book author visit (results unavailable) Assessment & Plan (08/25/2018 [...] TSH. RTC in 2 weeks to see pharmacy messenger, 3 months to see . Snoring 05/17/2011 [...] with emotional/psychological issues from this traumatic period. Social History Tobacco Use Types Packs/Day Years [...] 04/18/2022 2:08 PM CDT Plan of Treatment Not on file Care Teams Clinical Laboratory Technician Relationship Specialty Start Date End Date Christine Pteerson MD [address] [phone] PCP - General Pediatrics 07/29/18
--- OUTSIDE RECORDS SUMMARY | 2024-11-10 05:56 | XMS_ITS | Patient Health Summary ---
Author Organization [facility] Address [address] [place] [address] Care Team Providers Care Hall Cleaner Name Role Phone Christine Peterson MD Primary Care Provider [phone] Note from [facility]non-owned Affiliates and Associated Physician Practices is amultiple site organization consisting of ambulatory clinics and hospital sitesin [place], [place], [place] and [place]. This disclosure is being madepursuant to the Care Everywhere program and may not contain all information available regarding this patient. Last updated 18.[facility] Allergies No known active allergies Medications * Be aware that medications may not be up to date on this document. Alwaysverify current medications with the patient. * Lancets (MICROLET) [facility](Started 08/25/2018) Use 5-9 Each once daily Use to check blood sugar twice daily or as directed. 11 refills remaining * aspirin (ASPIRIN) 81 MG chew tablet Take 162 mg by mouth once daily * Vit-Fe Fumarate-FA ( VITAMIN) 28-0.8 MG tablet Take 1 tablet by mouth once daily Reasons: * acetaminophen (TYLENOL) 500 MG tablet Take 500 mg by mouth every 6 hours as needed for Fever or Pain Maximum allowable Acetaminophen amount = 4 Grams (4000 mg) / 24 hours. Reasons: Pain * hydrOXYzine hcl (ATARAX) 25 MG tablet(Started 06/13/2021) Take 1 (one) tablet by mouth 3 times daily as needed (anxiety) Reasons: Feeling Anxious 5 refills by 06/13/2022 * Glucagon, rDNA, (GLUCAGON EMERGENCY) 1 MG KIT(Started 06/27/2021) Inject 1 (one) mg subcutaneously as needed 1 refill by 06/27/2022 * sertraline (ZOLOFT) 50 MG tablet Take 50 mg by mouth once daily * Glucagon (BAQSIMI ONE PACK) 3 MG/DOSE POWD(Started 04/19/2022) [place] 3 mg into the nose as needed * OneTouch Delica Lancets 33G MISC(Started 04/30/2022) Use 1 Each as directed 2 refills by 04/30/2023 * insulin detemir (LEVEMIR) pen(Started 05/14/2022) Inject 14 (fourteen) Units to 50 (fifty) Units subcutaneously as directed Start with 14 units at 6pm. Increase as directed. 2 refills by 05/14/2023 * insulin lispro (HUMALOG KWIKPEN) 200 UNIT/ML(Started 05/14/2022) Inject 16 (sixteen) Units to 50 (fifty) Units subcutaneously as directed Start with 4u before bfast& lunch, 8u before dinner. Increase as directed Reasons: Diabetes During 4 refills by 05/14/2023 * Insulin Pen Needle 32G X 4 MM MISC(Started 05/14/2022) Use 1 Each 5 times daily 3 refills by 05/14/2023 * blood glucose (ONETOUCH VERIO) test strip(Started 05/14/2022) Use 1 (one) strip 4 times daily 2 refills by 05/14/2023 * metFORMIN (Glucophage) 500 MG tablet Take 1 (one) tablet by mouth 2 times daily with morning and evening meal * Semaglutide (OZEMPIC, 1 MG/DOSE, SC) Active Problems Problem Noted Date Diagnosed Date Supervision of high-risk of young adalidevante igravida 04/30/2022 Morbid obesity 06/13/2021 Anxiety and depression 06/13/2021 Chronic tension headaches 06/13/2021 pre-diabetes now gestational diabetes mellitus ( GDM) 03/26/2021 Family history of congenital heart defect 2020 Resolved Problems Problem Noted Date Diagnosed Date Resolved Date Dysuria during in third trimester 06/13/2021 04/30/2022 Supervision of normal first 03/26/2021 04/30/2022 Elevated hemoglobin A1c 05/22/201603/04 Anxiety state 05/17/2011 03/26/2021 Obesity 05/17/2011 03/26/2021 Snoring 05/17/2011 03/26/2021 Psychological factor affecti ng physical condition 05/17/2011 03/26/2021 Social History Tobacco Use Types Packs/Day Years [...] Mass Index 48.99 04/18/2022 2:08 PM CDT Procedures * BIOPHYSICAL PROFILE W NST(Performed 05/14/2022) Performed for Encounter for supervision of normal first in third trimester ([facility]), Diet controlled gestational diabetes mellitus (GDM) in third trimester ([facility]) * BIOPHYSICAL PROFILE W NST(Performed 04/30/2022) Performed for Encounter for supervision of normal first in third trimester ([facility]), Diet controlled gestational diabetes mellitus (GDM) in third trimester ([facility]) * SONOGRAM - COMPLETE(Performed 04/18/2022) Performed for Second ([facility]), Type 2 diabetes mellitus without complication, unspecified whether [place] [facility] insulin use ([facility]), Family history of congenital heart defect, Rh negative, antepartum ([facility]), Anxiety and depression, Morbid (severe) obesity due to excess calories ([facility]), 31 weeks gestation of ([facility]) * BIOPHYSICAL PROFILE W NST(Performed 07/31/2021) Performed for Encounter for supervision of normal first in third trimester ([facility]), Diet controlled gestational diabetes mellitus (GDM) in third trimester ([facility]) * BIOPHYSICAL PROFILE W NST(Performed 06/29/2021) Performed for Diet controlled gestational diabetes mellitus (GDM) in third trimester ([facility]), Family history of congenital heart defect * SONOGRAM - COMPLETE(Performed 06/13/2021) Performed for Encounter for supervision of normal first in second trimester ([facility]), Diet controlled gestational diabetes mellitus (GDM) in second trimester ([facility]), Family history of congenital heart defect * ECHO CONSULT - (Performed 06/07/2021) Performed for Family history of congenital heart defect * SONOGRAM - COMPLETE(Performed 04/24/2021) Performed for Encounter for supervision of normal first in second trimester ([facility]), Diet controlled gestational diabetes mellitus (GDM) in second trimester ([facility]), Family history of congenital heart defect * SONOGRAM - COMPLETE(Performed 03/27/2021) Performed for Family history of congenital heart defect, Diet controlled gestational diabetes mellitus (GDM) in second trimester ([facility]), Encounter for supervision of normal first in second trimester ([facility]) * MICROALB/CREAT RATIO URINE RANDOM PANEL(Performed 08/25/2018) Performed for Hemoglobin A1c above reference range * LIPID PROFILE(Performed 08/25/2018) Performed for Hemoglobin A1c above reference range * ISLET CELL ANTIBODY(Performed 08/25/2018) Performed for Hemoglobin A1c above reference range * IA-2 ANTIBODY(Performed 08/25/2018) Performed for Hemoglobin A1c above reference range * GLUTAMIC ACID DECARBOXYLASE (DIANA) ANTIBODY(Performed 08/25/2018) Performed for Hemoglobin A1c above reference range * C-PEPTIDE(Performed 08/25/2018) Performed for Hemoglobin A1c above reference range * COMPREHENSIVE METABOLIC PANEL(Performed 08/25/2018) Performed for Hemoglobin A1c above reference range * HEMOGLOBIN A1C - POCT (IP) BEAKER(Performed 08/25/2018) Performed for Hemoglobin A1c above reference range * LAB RESULTS ORDER(Performed 05/27/2016) * HEMOGLOBIN A1C - POCT (IP) BEAKER(Performed 05/22/2016) Performed for Elevated hemoglobin A1c * CREATININE BLOOD(Performed 05/22/2016) Performed for Elevated hemoglobin A1c * GLUCOSE(Performed 05/22/2016) Performed for Elevated hemoglobin A1c Results * BIOPHYSICAL PROFILE W NST (05/14/2022 11:07 AM CDT) Only the most recent of4 resultswithin the time period is included. Anatomical Region Laterality Modality Other 05/14/2022 11:0 7 AM CDT Narrative 05/15/2022 10:33 AM CDT ?[facility] ?PHONE: ??FAX: ? Pat. Name: ?BRANDIE TORRES Pat. No: ?[id number] Study Date: ?? 05/14/2022 ??11:07am , Age: ? 2000, 21 Pregnancies: ?? 2, Para 1 Height: ? 64 in Weight: ? 285 lb LMP: ?Unknown GA by Base: ?? 35w1d ?? KYLEE: 06/17/2022 GA Selected: ??35w1d (From [facility]) KYLEE: ?06/17/2022 Referring MD: Funmi Padilla MD Nurse'S Assistant: ??Merary Kramer RDMS CPT4: ? 60230,11448 BMI: ?48.91 Hist/Ind: ? Current GDM, on insulin ?Short interval ?Hx GDM ?Hx gHTN ?Class III obesity ?FOB-HLHS Heart Rate: 132 bpm Amniotic Fluid Index: 20.5cm (07.9-24.9) Q1: 6.1cm ??Q2: 4.9cm ??Q3: 4.0cm ??Q4: 5.5cm ?? Biophysical Profile: 08/12 Breathin ?? Tone: 2 ?? NST: 2 Movement: ??2 ?? AFV: ??2 EVAL, PLACENTA Presentation: cephalic Placenta: anterior Heart Rate: 132 bpm Amniotic Fluid Volume: normal Anatomy!Normal!Abnormal!Suboptimal!Prev. Seen!Comments Cranium ?! ?! ?! ?! ? x ?! Mdl (CSP/Thal! ?! ?! ?! ? x ?! Ventricles ?? ! ?! ?! ? x ?! ?! Choroid Plexu! ?! ?! ? x ?! ?! Cerebellum ?? ! ?! ?! ? x ?! ?! Cerebellar Ve! ?! ?! ? x ?! ?! Cisterna M. ??! ?! ?! ? x ?! ?! Orbits ? ! ?! ?! ?! ? x ?! Profile ?! ?! ?! ?! ? x ?! Nasal Bone ?? ! ?! ?! ?! ? x ?! Lip ?! ?! ?! ?! ? x ?! Maxilla ?! ?! ?! ?! ? x ?! Mandible ? ! ?! ?! ?! ? x ?! Neck ? ! ?! ?! ?! ? x ?! Spine ?! ?! ?! ?! ? x ?! Lungs ?! ?! ?! ?! ? x ?! 4 Chamber Hea! ?! ?! ?! ? x ?! LVOT ? ! ?! ?! ?! ? x ?! RVOT ? ! ?! ?! ?! ? x ?! 3 Vessel View! ?! ?! ?! ? x ?! 3 Vessel Trac! ?! ?! ?! ? x ?! Cross-over ?? ! ?! ?! ?! ? x ?! Ductal Arch ??! ?! ?! ?! ? x ?! Aortic Arch ??! ?? x ??! ?! ?! ?! Caval View ?? ! ?! ?! ?! ? x ?! Situs ?! ?! ?! ?! ? x ?! Diaphragm ?! ?! ?! ?! ? x ?! Stomach ?! ?! ?! ?! ? x ?! Liver ?! ?! ?! ?! ? x ?! Bowel ?! ?! ?! ?! ? x ?! Kidneys ?! ?! ?! ?! ? x ?! Bladder ?! ?! ?! ?! ? x ?! 3 Vessel Cord! ?! ?! ?! ? x ?! Cord In! ?! ?! ?! ? x ?! Upper Extremi! ?! ?! ?! ? x ?! Hands ?! ?! ?! ? x ?! ?! Lower Extremi! ?! ?! ?! ? x ?! Feet ? ! ?! ?! ? x ?! ?! External Pretty! ?! ?! ?! ? x ?! Placental Cor! ?! ?! ?! ? x ?! CLINICAL SUMMARY Study Number: 3 ?? A single fetus is seen in cephalic presentation. ??The amniotic fluid volume is within normal limits. ?? IMPRESSION: Single, live, intrauterine at 35w1d Amniotic fluid volume: within normal limits ?? Biophysical profile: Reassuring ?? RECOMMEND: Continue weekly testing ?? growth assessment in 1 week ?? Thank you for allowing us the opportunity to care for your patient Javon Herrera MD <Electronic Signature> ??05/14/2022 11:32am Revised Libby Farmer MD [facility] ORDERABLES * SONOGRAM - COMPLETE (04/18/2022 1:30 PM CDT) Only the most recent of4 resultswithin the time period is included. Anatomical Region Laterality Modality Other 04/18/2022 1:30 PM CDT Narrative 04/19/2022 9:33 AM CDT ? [facility] ?PHONE: ??FAX: Pat. Name: ?BRANDIE TORRES. No: ?[id number] Study Date: ?? 04/18/2022 ??1:30pm , Age: ? 2000, 21 Pregnancies: ?? 2, Para 1 Height: ? 64 in Weight: ? 285 lb LMP: ?Unknown GA by US: ? 30w6d ?? KYLEE: 06/21/2022 GA Selected: ??31w3d (Outside Scan) KYLEE: ?06/17/2022 Referring MD: Funmi Padilla MD Nurse'S Assistant: ??Benita Armijo, SAWYER, [facility] CPT4: ? 13726,77984 BMI: ?48.91 Hist/Ind: ? Short interval ?Hx GDM ?Hx gHTN ?Class III obesity ?FOB-HLHS MEASUREMENTS & AGE ? GROWTH EVALUATION Measurement ??GA ? Range ? Srce %for GA Ratios ----- ---- ------- BPD ??7.6 cm 30w2d (81n8m-74v1p) Hadl BPD 11% FL/BPD 0.79 (0.71 - 0.87) HC ??28.7 cm 31w4d (97d9g-92u6y) Hadl HC ??19% FL/AC ??0.22 (0.20 - 0.24) AC ??27.7 cm 31w5d (12u8p-49i9q) Hadl AC ??58% HC/AC ??1.04 (0.96 - 1.15) FL ?? 6.0 cm 31w0d (53v4a-24i3m) Hadl FL ??26% CI ? 0.73 (0.70 - 0.86) HL ?? 5.4 cm 31w2d (50q0l-60g6z) Jose HL ??47% GA for sonogram 30w6d (34l2i-54e3s) ?? Weight Estimate: based on (BPD,HC,AC,FL) Hadlock ?Weight: 1759 gm (1502-2016gm) Had ? : 3lbs, 14oz ? Normal: 1838 gm (1378- 2297gm) Had ? Wt% ? 37% for 31w3d Heart Rate: 149 bpm Amniotic Fluid Index: 16.0cm (08.7-24.0) Q1: 4.9cm ??Q2: 3.0cm ??Q3: 3.8cm ??Q4: 4.3cm ?? Biophysical Profile: 06/10 Breathin ?? Tone: 2 ?? Movement: ??2 ?? AFV: ??2 EVAL, PLACENTA Presentation: cephalic Placenta: anterior Heart Rate: 149 bpm Amniotic Fluid Volume: normal Anatomy!Normal!Abnormal!Suboptimal!Prev. Seen!Comments Cranium ?! ?? x ??! ?! ?! ?! Mdl (CSP/Thal! ?? x ??! ?! ?! ?! Ventricles ?? ! ?! ?! ? x ?! ?! Choroid Plexu! ?! ?! ? x ?! ?! Cerebellum ?? ! ?! ?! ? x ?! ?! Cerebellar Ve! ?! ?! ? x ?! ?! Cisterna M. ??! ?! ?! ? x ?! ?! Nuchal Fold ??! ?! ?! ? x ?! ?! Orbits ? ! ?? x ??! ?! ?! ?! Profile ?! ?? x ??! ?! ?! ?! Nasal Bone ?? ! ?? x ??! ?! ?! ?! Lip ?! ?? x ??! ?! ?! ?! Maxilla ?! ?? x ??! ?! ?! ?! Mandible ? ! ?? x ??! ?! ?! ?! Neck ? ! ?? x ??! ?! ?! ?! Spine ?! ?! ?! ? x ?! ?! Lungs ?! ?? x ??! ?! ?! ?! 4 Chamber Hea! ?? x ??! ?! ?! ?!suboptimal septum LVOT ? ! ?? x ??! ?! ?! ?! RVOT ? ! ?? x ??! ?! ?! ?! 3 Vessel View! ?? x ??! ?! ?! ?! 3 Vessel Trac! ?? x ??! ?! ?! ?! Cross-over ?? ! ?? x ??! ?! ?! ?! Ductal Arch ??! ?? x ??! ?! ?! ?! Aortic Arch ??! ?! ?! ? x ?! ?! Caval View ?? ! ?? x ??! ?! ?! ?! Situs ?! ?? x ??! ?! ?! ?! Diaphragm ?! ?? x ??! ?! ?! ?! Stomach ?! ?? x ??! ?! ?! ?! Liver ?! ?? x ??! ?! ?! ?! Bowel ?! ?? x ??! ?! ?! ?! Kidneys ?! ?? x ??! ?! ?! ?! Bladder ?! ?? x ??! ?! ?! ?! 3 Vessel Cord! ?? x ??! ?! ?! ?! Cord In! ?? x ??! ?! ?! ?! Upper Extremi! ?? x ??! ?! ?! ?! Hands ?! ?! ?! ? x ?! ?! Lower Extremi! ?? x ??! ?! ?! ?! Feet ? ! ?! ?! ? x ?! ?! External Pretty! ?! ?! ?! ?!Female Placental Cor! ?? x ??! ?! ?! ?! CLINICAL SUMMARY Study Number: 1 ?? A single fetus is seen in cephalic presentation. ??The measurements today are consistent with appropriate interval growth. ??The KYLEE is based on a prior outside ultrasound (confirmed). ??The amniotic fluid volume is within normal limits. ?? IMPRESSION: Single, live intrauterine at 31w3d ?? size is within normal limits ?? Amniotic fluid volume: within normal limits ?? Reassuring 8 pt BPP of 06/10 Incomplete anatomic survey No malformations were seen within the limitations of ultrasound RECOMMEND: Ultrasound in 1 week for BPP ECHO if can be scheduled Thank you for allowing us the opportunity to care for your patient Javon Herrera MD <Electronic Signature> ??04/18/2022 02:40pm Revised Uriel Walker MD [facility] ORDERABLES * ECHO CONSULT - (06/07/2021 11:34 AM CDT) 06/07/2021 11:3 4 AM CDT Narrative Procedure Note Reina Yang MD - 06/11/[address]21 [address] [place] [address] Fax Echocardiogram Report Pat.Name: BRANDIE TORRES Karin.ID: [id number] St.Date: 06/07/2021 Refer.MD: Reina Yang Exam Time: 11:34:00 AM Study Type: Echo Age: 1 2000,20Y Sex: FEMALE Sonogrphr: Tita Pteerson RDCS Pat. Stat.:Outpatient CPT - 4: 31768, 57795, 41448 Reason for Study: Suspected Cardiac Abnormality, FOB with CHD SUMMARY: Study Data: GA: 29/3 weeks. KYLEE: 08/20/2021 . : 1. Para: 0. Type: Walter. Lie: Breech. Impression: The echocardiogram was within normal limits; however small atrial and ventricular septal defects and persistent ductus arteriosus cannot be excluded as findings. Findings: Anatomic Relationships: Left sided cardiac apex (levocardia). There is normal visceral-cardiac situs, and normal segmental cardiac anatomical relationship. Systemic Veins: There is normal systemic venous return. Pulmonary Veins: The visualized pulmonary veins drain normally to the left atrium. Right Atrium: The right atrial size is normal. Left Atrium: The left atrial size is normal. Atrial Septum: Patent foramen ovale is seen with the foramen flap bowing from right to left and color flow is right to left. Tricuspid Valve: The tricuspid valve is structurally normal. The inflow pattern is normal. Tricuspid velocity is within the normal range. There is no regurgitation present. Mitral Valve: The mitral valve is structurally normal. The inflow pattern is normal. Mitral velocity is within the normal range. There is no regurgitation present. Right Ventricle: The cavity size is normal. The wall thickness is normal. The systolic function is normal. RV Outflow Tract: The outflow tract is normal. Left Ventricle: The cavity size is normal. The wall thickness is normal. The systolic function is normal. LV Outflow Tract: The outflow tract is normal. Ventricular Septum: There is no defect with no shunting. Pulmonary Valve: Leaflets exhibited normal mobility. The transpulmonic velocity is within the normal range. There is no regurgitation present. Aortic Valve: Leaflets exhibited normal mobility. The transaortic velocity is within the normal range. There is no regurgitation present. Pulmonary Artery: The MPA is normal with confluent branch pulmonary arteries. Aorta: aortic arch visualized and is without obstruction by 2D, color flow and Doppler. Ductus Arteriosus: The antegrade flow velocity and pattern in the ductal arch is normal. A normal ductus arteriosus is appreciated. Hydrops Assessment: No pericardial effusion. No evidence of ascites or pleural effusion. Rhythm: The rhythm is normal. There is 1:1 AV conduction. Dopplers: Flow in the ductus venosus is normal. The umbilical vein flow pattern is normal. The umbilical artery flow pattern is normal. MEASUREMENTS: DOPPLER Mitral Valve MV pkE 0.31 m/s MV E/A 0.61 no unit MV pkA 0.5 m/s Tricuspid Valve TV pkE 0.31 m/s TV E/A 0.73 no unit TV pkA 0.43 m/s Aortic Valve AVpkVel 0.89 m/s Pulmonic Valve PV pkVel -0.69 m/s HR HR 151 bpm (zsc 1.2) Signed 06/11/2021 05:25 PM Reina Yang MD Reina Yang MD ECHO ORDERABLES [facility] [address] [place] [address] * IA-2 ANTIBODY (08/25/2018 11:20 AM CDT) Insulinoma Associated 2 Antibody <1.0 U/mL 08/29/2018 4:10 PM CDT [facility] ([facility]) Comment: Reference Range: <1.0 ?Negative > or = 1.0 ??Positive Blood BLOOD SPECIMEN / Unknown Lab Venipuncture / Unknown 08/25/2018 11:20 AM CDT 08/25/2018 12:09 PM CDT Narrative [facility] ([facility]) - 08/29/2018 4:10 PM CDT Performed at: ??01 - [facility] [address] [place], [place] ??[id number] Natural Resources Instructor: Nicolas Cotton MD, Phone: ??[phone] Deandre Vázquez MD LAB - SEROLOGY ORDER BEAU [facility] ([facility]) [address] [place] [address] * MICROALB/CREAT RATIO URINE RANDOM PANEL (08/25/2018 11:20 AM CDT) Creatinine Urine 202.40 mg/dL 08/25/20 18 12:54 PM CDT [facility] Microalbumin Urine 0.7 <1.7 mg/dL 08/25/2018 12:54 PM CDT [facility] Microalbumin/Crea tinine Ratio 3 <30 mg/g 08/25/2018 12:54 PM CDT [facility] Urine URINE SPECIMEN OBTAINED BY CLEAN CATCH PROCEDURE / Unknown Collection / Unknown 08/25/2018 11:20 AM CDT 08/25/2018 12:08 PM CDT Deandre Vázquez MD LAB - URINE CHEMISTR Y ORDERABLES Performing Organization Address [facility] Co de Phone Number [facility] [address] [place] [address] * ISLET CELL ANTIBODY (08/25/2018 11:20 AM CDT) Antipancreatic Islet Cells Negative Neg:<1:1 08/26/2018 5:10 PM CDT [facility] ([facility]) Blood BLOOD SPECIMEN / Unknown Lab Venipuncture / Unknown 08/25/2018 11:20 AM CDT 08/25/2018 12:09 PM CDT Narrative [facility] ([facility]) - 08/26/2018 5:10 PM CDT Performed at: ??01 - [facility] [address] ??[id number] Natural Resources Instructor: Rio Quach MD, Phone: ??[phone] Deandre Vázquez MD LAB - SEROLOGY ORDER BEAU [facility] ([facility]) [address] [place] [address] * (ABNORMAL) C-PEPTIDE (08/25/2018 11:20 AM CDT) [facility] C-Peptide 3.36(H) 0.78 - 1.89 ng/mL 08/25/2018 3:35 PM CDT [facility] Blood BLOOD SPECIMEN / Unknown Lab Venipuncture / Unknown 08/25/2018 11:20 AM CDT 08/25/2018 12:09 PM CDT Deandre Vázquez MD LAB - CHEMISTRY [place] [facility] [address] [place] [address] * GLUTAMIC ACID DECARBOXYLASE (DIANA) ANTIBODY (08/25/2018 11:20 AM CDT) [facility] DIANA-65 Antibody <5.0 0.0 - 5.0 U/mL 08/27/2018 4:22 PM CDT [facility] ([facility]) Blood BLOOD SPECIMEN / Unknown Lab Venipuncture / Unknown 08/25/2018 11:20 AM CDT 08/25/2018 12:09 PM CDT Narrative [facility] ([facility]) - 08/27/2018 4:22 PM CDT Performed at: ??01 - [facility] [address] ??[id number] Natural Resources Instructor: Rio Quach MD, Phone: ??[phone] Deandre Vázquez MD LAB - SEROLOGY ORDER BEAU [facility] ([facility]) [address] [place] [address] * (ABNORMAL) COMPREHENSIVE METABOLIC PANEL (08/25/2018 11:20 AM CDT) [facility] Glucose 113(H) 70 - 105 mg/dL 08/25/2018 12:51 PM CDT [facility] Sodium 139 136 - 145 mmol/L 08/25/2018 12:51 PM CDT [facility] Potassium 4.0 3.5 - 5.1 mmol/L 08/25/2018 12:51 PM [facility] Chloride 103 98 - 107 mmol/L 08/25/2018 12:51 PM [facility] CO2 28 20 - 28 mmol/L 08/25/2018 12:51 PM [facility] Calcium 9.96 9.08 - 10.48 mg/dL 08/25/2018 12:51 PM [facility] Anion Gap 8 5 - 20 mmol/L 08/25/2018 12:51 PM [facility] BUN 13.2 5.3 - 18.7 mg/dL 08/25/2018 12:51 PM [facility] Creatinine 0.70 0.61 - 1.07 mg/dL 08/25/2018 12:51 PM [facility] Alkaline Phosphatase 98(L) 100 - 390 U/L 08/25/2018 12:51 PM [facility] ALT 24 8 - 65 U/L 08/25/2018 12:51 PM [facility] AST 19 3 - 35 U/L 08/25/2018 12:51 PM [facility] Protein Total 7.5 6.3 - 8.2 gm/dL 08/25/2018 12:51 PM [facility] Albumin 4.1 3.3 - 4.9 gm/dL 08/25/2018 12:51 PM [facility] Bilirubin Total 0.7 0.3 - 1.2 mg/dL 08/25/2018 12:51 PM [facility] eGFR by MDRD mL/min/1.7 3m2 08/25/2018 12:51 PM [facility] Comment: eGFR calculations are not performed for children under 18 years old. eGFR by MDRD mL/min/1.7 3m2 08/25/2018 12:51 PM [facility] Comment: eGFR calculations are not performed for children under 18 years old. Blood BLOOD SPECIMEN / Unknown Lab Venipuncture / Unknown 08/25/2018 11:20 AM CDT 08/25/2018 12:09 PM T Deandre Vázquez MD LAB - CHEMISTRY [place] [place] [facility] Organization Address City/State/ZIP Co de Phone Number [facility] [address] [place] [address] * LIPID PROFILE (08/25/2018 11:20 AM CDT) Cholesterol 157 <170 mg/dL 08/25/2018 12:51 PM CDT [facility] Triglycerides 88 46 - 227 mg/dL 08/25/2018 12:51 PM CDT [facility] HDL Cholesterol 46 >40 mg/dL 8 12:51 PM CDT [facility] LDL Calculated 93 <100 mg/dL 08/25/2018 12:51 PM CDT [facility] VLDL Calculated 18 12 - 38 mg/dL 08/25/2018 12:51 PM T [facility] Chol HDL Ratio 3.4 <=5.0 08/25/2018 12:51 PM T [facility] Blood BLOOD SPECIMEN / Unknown Lab Venipuncture / Unknown 08/25/2018 11:20 AM CDT 08/25/2018 12:09 PM CDT Narrative [facility] - 08/25/2018 12:51 PM CDT Lipid Profile Comment: Adult references ranges are the recommendation of the [place] [employer] , for those patients >18 years old. Cholestrol ??LDL ?? Triglycerides ?HDL ?? -- ?-- ? -- ?<40 ?Low <170 ? <100 ?<150 ? Desirable 170-199 ?? 130-159 ? 150-199 ?Borderline High >200 ?160-189 ? 200-499 ?>60 ?High Risk factor status for Coronary Artery Disease is necessary to place these lab findings in perspective. Note: This test is for fasting patients only. A non-fasting state may alter some of these results. Deandre Vázquez MD LAB - CHEMISTRY [place] [place] [facility] [address] [place] [address] * (ABNORMAL) HEMOGLOBIN A1C - POCT (IP) BEAKER (08/25/2018 9:32 AM CDT) Only the most recent of2 resultswithin the time period is included. Hemoglobin A1c POCT 6.7(A) 3.4 - 6.1 % [facility] POCT TESTING QC Verified Yes Yes [facility] PO CT TESTING Blood BLOOD SPECIMEN / Unknown 08/25/2018 9:32 AM CDT Deandre Vázquez MD LAB - POINT OF CARE ORDERABLES [facility] POCT TESTING [address] [place] [address], [facility] [phone] * LAB RESULTS ORDER (05/27/2016 10:40 PM CDT) Narrative 05/27/2016 10:40 PM CDT Ordered by an unspecified provider. Scanned Document LAB - THERAPEUTIC DR UG MONITORING ORDERABLES * GLUCOSE (05/22/2016 9:19 AM CDT) Glucose 97 70 - 105 mg/dL 05/22/2016 10:00 AM CDT [facility] Blood BLOOD SPECIMEN / Unknown 05/22/2016 9:19 AM CDT 05/22/2016 9:39 AM CDT Deandre Vázquez MD LAB - CHEMISTRY ORDE MAGALI [facility] [address] [place] [address] * (ABNORMAL) CREATININE BLOOD (05/22/2016 9:19 AM CDT) Creatinine 0.57(L) 0.62 - 1.00 mg/dL 05/22/2016 10:00 AM CDT [facility] eGFR by MDRD mL/min/1. 73m2 05/22/2016 10:00 AM CDT [facility] Comment: eGFR calculations are not performed for children under 18 years old. eGFR by MDRD mL/min/1. 73m2 05/22/2016 10:00 AM CDT [facility] Comment: eGFR calculations are not performed for children under 18 years old. Blood BLOOD SPECIMEN / Unknown 05/22/2016 9:19 AM CDT 05/22/2016 9:39 AM CDT Deandre Vázquez MD LAB - CHEMISTRY [facility] [place] [facility] Performing Organization Address City/State/[facility] Co de Phone Number [facility] [address] [place] [address] Care Teams Hall Cleaner Relationship Specialty Start Date End Date Christine Peterson MD [address] [id number] PCP - General Pediatrics 07/29/18
--- OUTSIDE RECORDS SUMMARY | 2024-11-10 05:56 | XMS_ITS | Encounter Summary ---
Author Organization [facility] Health Address [address] [place] [address] Care Team Providers Care Surgical Instruments Inspector Name Role Phone Christine Peterson MD Primary Care Provider [phone] Reason for Visit * Reason Comments Biophysical Profile FAD NST Ultrasound Encounter Details Date Type Department Care Team (Latest Contact Info) Description 07/31/2021 10:30 AM CDT - 07/31/2021 11:59 PM CDT Hospital Encounter [facility] Maternal & Care [address] [place] [id number] Lacey Stiles MD [address] [id number] Discharge Disposition: Home or Self Care Social History Tobacco Use Types Packs/Day Years Used Date Smoking Tobacco: Never Smokeless Tobacco: Never Alcohol Use Standard Drinks/Week Comments Not Asked 0 (1 standard drink = 0.6 oz pur e alcohol) Comments Yes Sex and Gender Information Value Date Recorded Sex Assigned at Not on file Gender Identity Not on file Sexual Orientation Not on file documented as of this encounter Last Filed Vital Signs Vital Sign Reading Time Taken Comments Blood Pressure 130/80 07/31/2021 11:17 AM CDT Pulse 76 07/31/2021 11:17 AM CDT Temperature - - Respiratory Rate - - Oxygen Saturation - - Inhaled Oxygen Concentration - - Weight - - Height - - Body Mass Index - - documented in this encounter Medications at Time of Discharge Medication Sig Dispensed Refills Start Date End Date acetaminophen (TYLENOL) 500 MG tabletIndications:Pa in Take 500 mg by mouth every 6 hours as needed for Fever or Pain Maximum allowable Acetaminophen amount = 4 Grams (4000 mg) / 24 hours. Reasons: Pain aspirin (ASPIRIN) 81 MG chew tablet Take 162 mg by mouth once daily Glucagon, rDNA, (GLUCAGON EMERGENCY) 1 MG KIT Inject 1 (one) mg subcutaneously as needed 1 Each 1 06/27/2021 hydrOXYzine hcl (ATARAX) 25 MG tabletIndications:An xiety Take 1 (one) tablet by mouth 3 times daily as needed (anxiety) Reasons: Feeling Anxious 90 tablet 5 06/13/2021 Lancets (MICROLET) MISC Use 5-9 Each once daily Use to check blood sugar twice daily or as directed. 100 Each 11 08/25/2018 Vit-Fe Fumarate-FA ( VITAMIN) 28-0.8 MG tabletIndications:Pr egnancy Take 1 tablet by mouth once daily Reasons: blood glucose (IVAN CONTOUR NEXT TEST) test strip Use to test blood sugar twice daily or as directed. 100 strip 11 08/25/2018 05/14/2022 insulin glargine (LANTUS) pen Inject 12 (twelve) Units to 30 (thirty) Units subcutaneously at bedtime Start with 12 units. Increase as directed. 15 mL 2 06/27/2021 04/18/2022 Insulin Pen Needle 32G X 4 MM MISC Use 1 Each once daily 100 Each 2 06/27/2021 04/18/2022 documented as of this encounter Progress Notes * Antonieta Rose RN - 07/31/2021 11:19 AM CDT Patient here today for NST/BPP performed at 37w1d for GDM. Patient reports positive movement.Denies cramping, contractions, bleeding, and leakage of fluid. Patient reports frontal lobe headache on left side of head that improves some with tylenol. Patient reports she had to call ambulance within the past week for a panic attack as no one was home with her and she felt like she couldn't breathe for 10 mins. Patient states she was able to check her blood sugar and reports it was 95. Patient states EMT's came to house and her blood pressure was normal and her blood sugar they checked was normal. She informed me they put O2 on her for a few minutes and she felt better. Patient reports her oxygen levels were normal per EMT and she thinks she had a bad anxiety attack . Patient reports she tried to call primary OB office but was unable to get through to anyone to discuss. I recommended the patient reschedule with MFM for a final consult prior to delivery and asked how patient was doing on insulin. Patient reports she never started insulin MFM recommended. Patient has appt with Dr. Farmer, Primary OB every Friday until delivery scheduled. Patient will schedule with us again for twice weekly testing. Patient denies epigastric pain and visual changes. Patient losther mother last month unexpectantly and is having a difficult time with anxiety and depression. Shereports she has received medication to help. Patient denies feelings of harm to self and others. Patient's boyfriend here with her today and supportive. Patient advised to call if she has any questions or concerns. VS per flowsheet. Antonieta Rose RN 07/31/2021 11:29 AM documented in this encounter Plan of Treatment Not on file documented as of this encounter Procedures Procedure Name Priority Date/Time Associated Diagnosis Comments BIOPHYSICAL PROFILE W NST Routine 07/31/2021 11:07 AM CDT Encounter for supervision of normal first in third trimester (HCC) Diet controlled gestational diabetes mellitus (GDM) in third trimester (HCC) documented in this encounter Results * BIOPHYSICAL PROFILE W NST (07/31/2021 11:07 AM CDT) Anatomical Region Laterality Modality Other 07/31/2021 11:0 7 AM CDT Narrative 07/31/2021 12:00 PM CDT ? [facility] ? [facility] ?PHONE: ??FAX: Pat. Name: ?JUAN RAMONBRANDIE REEDER Pat. No: ?[id number] Study Date: ?? 07/31/2021 ??11:07am , Age: ? 2000, 20 Pregnancies: ?? 1 Height: ? 64 in Weight: ? 289 lb LMP: ?2020 GA by LMP: ?37w1d GA by Base: ?? 37w1d ?? KYLEE: 08/20/2021 GA by US: ? 35w5d ?? KYLEE: 08/30/2021 GA Selected: ??37w1d (LMP) KYLEE: ?08/20/2021 Referring MD: Funmi Padilla MD Lead Clinical Research Coordinator: ??Samia Reynolds RDMS CPT4: ? [id number] BMI: ?49.6 Hist/Ind: ? GDM, insulin ordered 06/27 ?Hypertension ?Class III obesity ?Incomplete anatomic survey ?FOB-HLHS ?Normal echo MEASUREMENTS & AGE ? GROWTH EVALUATION Measurement ??GA ? Range ? Srce %for GA Ratios ----- ---- ------- BPD ??8.6 cm 34w4d (46k1j-98z9d) Hadl BPD 6% FL/BPD 0.80 (0.71 - 0.87) HC ??32.7 cm 37w0d (78s0o-18s6m) Hadl HC ??23% FL/AC ??0.20 (0.20 - 0.24) AC ??33.9 cm 37w6d (95y3j-69x5v) Hadl AC ??81% HC/AC ??0.96 (0.91 - 1.10) FL ?? 6.8 cm 35w1d (80n5y-49h9l) Hadl FL ??8% CI ? 0.72 (0.70 - 0.86) GA for sonogram 35w5d (43b2p-96v5r) ?? Weight Estimate: based on (BPD,HC,AC,FL) Hadlock ?Weight: 3007 gm (2568-3446gm) Had ? : 6lbs, 10oz ? Normal: 3049 gm (2287- 3811gm) Had ? Wt% ? 46% for 37w1d Heart Rate: 141 bpm Amniotic Fluid Index: 20.7cm (07.5-24.4) Q1: 6.5cm ??Q2: 4.9cm ??Q3: 5.0cm ??Q4: 4.4cm ?? Biophysical Profile: 08/12 Breathin ?? Tone: 2 ?? NST: 2 Movement: ??2 ?? AFV: ??2 EVAL, PLACENTA Presentation: cephalic Placenta: posterior Heart Rate: 141 bpm Amniotic Fluid Volume: normal Anatomy!Normal!Abnormal!Suboptimal!Prev. Seen!Comments Ventricles ?? ! ?! ?! ? x ?! ?! Situs ?! ?? x ??! ?! ?! ?! Stomach ?! ?? x ??! ?! ?! ?! Kidneys ?! ?? x ??! ?! ?! ?! Bladder ?! ?? x ??! ?! ?! ?! Hands ?! ?! ?! ? x ?! ?! Feet ? ! ?! ?! ? x ?! ?! CLINICAL SUMMARY Study Number: [id number] ?? The FHR baseline was 135 bpm during today's reactive NST. The FHR variability was moderate and no decelerations were detected. IMPRESSION: ?? 1) Walter gestation, 37w1d 2) The accuracy of weight estimates is highly limited at term but there is no evidence of abnormal growth based on today's biometry overall 3) The amniotic fluid volume is within normal limits 4) Reassuring biophysical profile 5) No abnormalities have been detected on anatomic survey 6) Imaging of a portion of the anatomy (see table above) was again suboptimal, secondary to size and positioning NOTE: The patient was advised that ultrasound does not allow detection of all structural or chromosomal abnormalities. ?? RECOMMEND: ?? Continue testing as clinically indicated and close maternal movement monitoring while awaiting admission for delivery Thank you for allowing us the opportunity to care for your patient. Lacey Stiles MD <Electronic Signature> ??07/31/2021 12:01pm Revised Libby Farmer MD [facility] ORDERABLES documented in this encounter Visit Diagnoses Diagnosis Encounter for supervision of normal first in third trimester (HCC) Supervision of normal first Diet controlled gestational diabetes mellitus (GDM) in third trimester (HCC) Family history of congenital heart defect Family history of congenital anomalies Insulin controlled gestational diabetes mellitus (GDM) in third trimester (HCC) Unspecified maternal hypertension, third trimester (HCC) 37 weeks gestation of (HCC) state, incidental documented in this encounter Care Teams Surgical Instruments Inspector Relationship Specialty Start Date End Date Christine Peterson MD [address] [phone] PCP - General Pediatrics 07/29/18 documented as of this encounter
--- OUTSIDE RECORDS SUMMARY | 2024-11-10 05:56 | XMS_ITS | Encounter Summary ---
Author Organization [facility] Address [address] [place] [address] Care Team Providers Care Electric Power Superintendent Name Role Phone Christine Peterson MD Primary Care Provider Reason for Referral * Consultation (Routine) - Closed Specialty Diagnoses / Procedures Referred By Geraldo low Referred To Contact Diagnoses Second (HCC) Type 2 diabetes mellitus without complication, unspecified whether fdc insulin use (HCC) Family history of congenital heart defect Rh negative, antepartum (HCC) Anxiety and depression Morbid (severe) obesity due to excess calories (HCC) 31 weeks gestation of ([facility]) Procedures MATERNAL MEDICINE CONSULT Uriel Walker [place] [place] [address] [facility] [place] [address] Referral ID Status Reason Start Date Expiration Date Visits Re quested Visits Authorized [id number] Closed 04/15/2022 04/15/2023 1 1 Reason for Visit * Reason Comments Ultrasound Diabetes Mellitus Maternal Medicine Encounter Details Date Type Department Care Team (Latest Contact Info) Description 04/18/2022 1:00 PM CDT - 04/18/2022 11:59 PM CDT Hospital Encounter [facility] Maternal & Care [address] [place] [address] Javon Herrera MD [address] [facility] [address] [place] [address] Discharge Disposition: Home or Self Care Social [...] Sign Reading Time Taken Comments Blood Pressure 139/86 04/18/2022 2:08 PM CDT Pulse 96 04/18/2022 2:08 PM CDT Temperature - - Respiratory Rate - - Oxygen Saturation - - Inhaled Oxygen Concentration - - Weight 133 kg (293 lb 3.2 oz) 04/18/2022 2:08 PM CDT Height 165.1 cm (5' 5 ) 04/18/2022 2:08 PM CDT Body Mass Index 48.79 04/18/2022 2:08 PM CDT documented in this encounter Medications at Time [...] Take 162 mg by mouth once daily Glucagon (BAQSIMI ONE PACK) 3 MG/DOSE POWD Bolt 3 mg into the nose as needed 1 Each 04/19/2022 Glucagon, rDNA, (GLUCAGON EMERGENCY) 1 MG KIT [...] 1 tablet by mouth once daily Reasons: sertraline (ZOLOFT) 50 MG tablet Take 50 mg by mouth once daily blood glucose (IVAN CONTOUR NEXT TEST) test strip Use to test blood sugar twice daily or as directed. 100 strip 11 08/25/2018 05/14/2022 insulin detemir (LEVEMIR) pen Inject 14 units every night. 15 mL 3 04/18/2022 04/30/2022 Insulin Pen Needle 32G X 4 MM MISC Use 1 Each once daily 100 Each 1 04/18/2022 04/30/2022 documented as of this encounter Progress Notes * Jerrica Petersen RN - 04/18/2022 5:41 PM CDT Brandie Torres is a 21 year old [id number] Date of Delivery: 06/17/22 Patient seen today for Initial Diabetes Self Management Education (DSME). DSME content and documentation follows. History of Diabetes: GDM with first ; has 8 month old son Family History: Yes, mother, grandmother. Barriers to Learning: none Works: [employer]; works 5-6 days a week. Works till 3 am in the morning. Sleeps till 8:00-12:00 noon. Lives with: boyfriend Pt accompanied by: boyfriend-later in visit, baby son Is physically active: states at work 1 hour GTT: 140 3 hour GTT: fasting was 128, stopped test Started to monitoring prior to session. Did not bring logs, states she is better testing her fasting; fastings range from 80-118, majority are above 90 , states one post dinner blood sugar 168 afterlasagna. Current Diabetes Medications: None; previously prescribed insulin with first but did not have to start-delivered Knowledge/Skills presented: _X__ Gestational diabetes definition, physiology and increasing insulin resistance during . _X__ Increasing insulin needs during _X__ Importance and rationale of euglycemia in _X__ Monitoring before breakfast, 1 hours after each meal and prn. Target blood sugars fasting and 1 hour after eating. Has working meter at home. __X__ Sharps disposal __X__Name of glucometer: States it is a One Touch-not sure type _X__ Hyperglycemia and hypoglycemia causes, symptoms, precautions and treatment. _X__ Blood Glucose Testing: finger stick technique, blood glucose meter use, when to test/record readings, keeping accurate records of blood glucose and food intake. Food and BG log sheets were provided with office contact numbers. Factors that affect blood sugar levels: Food, activity, insulin type/amount, stress/illness _X__ Healthy Eating/Meal Planning Importance of carbohydrate modification, consistency, importance of eating 3 meals and 3 snacks daily. Foods to avoid: juice, regular soda, sweets, fruit or cereal at first meal of day __X__ Hyperglycemia Prevention, symptoms, treatment Reporting of high blood glucose levels to office/physician __X__ Hypoglycemia; discussed Baqsimi-instructions provided to FOB Prevention, symptoms, treatment Reporting of low blood glucose levels to office/physician _X__ Sick day care ___ Ketosis prevention _X_ Medication - Insulin. Patient to start Levemir 14 units every PM. Will administer about 12 MN due to work schedule. ___ Insulin: type and current dose, timing. Shown pages in and Diabetes handbook on insulin administration, storage and hypoglycemia. ____ Vial/syringe ____ Return demonstration _X___ Insulin pen _X___ Return demonstration _X___ Injection site and rotation _X___ Storage and handling of insulin _X___ Sharps disposal _X__ Exercise benefits, guidelines and precautions. Instructed to begin 30 minutes walking daily ifnot contraindicated _X__ kick counts as advised ____ Breast feeding _X__ Post- care and testing at 4-12 weeks after delivery, vigorous risk factor reduction after delivery to prevent or delay onset of diabetes Receptive to teaching: yes Understanding of instructions: yes Plan: Test blood glucose fasting and 1 hour after each meal. Keep detailed records of blood glucose, food and exercise. Stressed the importance of bringing meter and logs to each appointment. [facility] one week. May change to [place] location Provided Diabetes and handouts, blood sugar/food/activity log sheets shared via office contact number as well as CDE's email address provided. Instructed to call/email if any problems obtaining glucometer supplies, medications or adhering to diabetes treatment plan. Ongoing follow up to reinforce and expand DSME. Instructed to call if BG are over or under targets. Provided [email or web address] email address to report blood sugar/food logs when will not be in office that week or any issues or concerns related to diabetes. Emphasized need to call office to inquire if email received if have any issues with receiving a timely response that day. Answered patient's questions. Pt states understanding of instructions provided. Jerrica Petersen, MSN, RN, CDE * Jo Espinal RN - 04/18/2022 3:03 PM CDT Pt here today for ultrasound and new MFM consult for uncontrolled GDM. Pt reports feeling good movement. Denies cramping/contractions. Denies leakage of fluid/bleeding. She reports some occasional headaches with seeing spots. She also reports some mild edema in her feet and legs. She denies epigastric pain. Supplies for 24 hour urine give and order requisition for CBC, CMP, and 24-hour urine. Pt states that she is familiar with collecting this and will do it soon. Written instructions for collections process provided. She reports having GDM and GHTN with her last . She was diagnosed with GDM this after failing her GCT, then she had an elevated fasting for GTT so lab did not proceed with the restof testing. She is checking her blood sugars but not precisely on schedule. She does not have a record of these blood sugars but stated ranges for fastings and mealtimes. She is not on any medications for diabetes at this time. She was instructed on checking routinely and keeping a log. Pt was seen today by Jerrica for diabetes today. Please see her note for further plan for diabetic management. She will begin long-acting Insulin at HS. Insulin teaching completed by Jerrica. Pt states that she has anxiety and depression. This is managed by her primary doctor at this time. She is on Zoloft for it and she states that she is unsure at times whether it is helping or not but rates her mood as stable at this time. She denies feeling of harm to herself or others. Pt was seen by Dr. Herrera today for consult. Please see his note for further POC. Pt will follow up in 1 week for US/NST/DE/[employer] [facility]. Appointments made at checkout today. She denies further questions or concerns for her care today. * Javon Herrera MD - 04/18/2022 2:40 PM CDT . MFM - initial visit Brandie Torres is a 21 year old, at 31w3d sent from Dr. Padilla She is sent for:: pre-diabetes now gestational diabetes mellitus (GDM) Family history of congenital heart defect Morbid obesity Anxiety and depression Chronic tension headaches She has no complaints other than routine HARDEN. HARDEN today is similar to what she gets daily . She denies scotomata, abd pain. She reports FBS 80-118 with a majority > 90. She can only recall one post prandial in the 160s. OB History Para Term AB Living 2 1 1 1 SAB IAB Ectopic Multiple Live Births 1 # Outcome Date GA Lbr Glen/2nd Weight Sex Delivery Anes PTL Lv 2 Current 1 Term 08/02/21 37w0d 2863 g (6 lb 5 oz) Vag-Spont SHERMAN Complications: Gestational diabetes, History of gestational hypertension Obstetric Comments Irregular menses. Denies STI history. Past Medical History: Diagnosis Date ??? Anxiety treated with Prozac ??? Obesity 05/17/2011 ??? depression ??? Rh incompatibility Past Surgical History: Procedure Laterality Date ??? Tonsillectomy and Adenoidectomy Bilateral 2014 Family History Problem Relation Name Age of Onset ??? Diabetes Mother 15 Type 1 [dialysis dependent, Aug, 2018)] ??? Hypertension Mother during ??? Asthma Mother ??? Hypertension Father ??? Asthma Father ??? Depression Father depression/anxiety ??? Heart Failure Maternal Grandfather ??? Diabetes Maternal Grandfather ??? Diabetes Paternal Uncle diet control Social History Tobacco Use ??? Smoking status: Former Smoker Types: Cigarettes ??? Smokeless tobacco: Former User Types: Chew Vaping Use ??? Vaping Use: Former Substance Use Topics ??? Alcohol use: Not Currently ??? 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 Authorizing Provider PNRoger and Zoloft No Known Allergies ROS - all negative Exam BP 139/86 (BP SITE: LEFT ARM, BP POSITION: SITTING, BP CUFF SIZE: 11) Pulse 96 Ht 5' 5 (1.651 m) Wt 293 lb 3.2 oz (133 kg) BMI 48.79 kg/m2 Gen - NAD Abd - NT Ext - NT, no edema, tr edema, normal DTRs, no clonus Labs: A1C = 5.8 on 03/22/22 A/Recs: 1. 31w3d 2. Declined genetic screening 3. GDM - we have limited information but given what she is recalling we feel comfortable to start at least some HS Levemir AM Lunch PM HS 14 units Levemir Will provide glucagon There is a likelihood that she is going to need insulin throughout the day/with meals We reviewed the target glucose ranges and that she can call if her BG are falling outside of those desired ranges. Will follow up with her weekly until control is optained. We reviewed risks of IDDM. We discussed risks of LGA/macrosomia as well as DM growth patterns in babies that put them at risk for trauma. We also discussed post metabolic issues in neonates and other ontoward outcomes, as serious as stillbirth. Regarding antepartum testing recommend (given that is just about at 32 weeks) starting twice weeklyantenatal testing. Serial Ultrasound assessment of growth is planned every 3-4 weeks. Timing of Delivery. If spontaneous delivery has not occurred by 39 weeks gestation, delivery may beplanned between 39-40 weeks. If dating is uncertain, an amniocentesis for Lung Maturity may be performed prior to scheduled delivery. If complications, such as preeclampsia, macrosomia or poor glucose control develop, then delivery plans may need to be revised. Route of delivery. Vaginal delivery may be anticipated unless the fetus is excessively large or there is an abnormal presentation.. Diabetes is associated with about a six-fold risk for shoulder dystocia. Operative vaginal deliveries should be approached with caution. Glucose control in labor. During labor, capillary glucose values should be checked every 1-2 hours (depending on their stability). Maintenance fluids with 5% dextrose are infused to prevent starvation ketosis. If the glucose values exceed 110 mg/dl, an insulin infusion is recommended. Long-term diabetes surveillance. Recommend a 2 hr GTT at her 6 week PP visit. The risk of the pt developing diabetes outside of over the next five years may be as high as 50%. 4. Counseled to use mask and gloves if she needs to clean cat litter. It is an indoor cat. 5. HAs - routine symptomatic Tx, will check baseline preecl labs 6. Zoloft safe for use in preg 7. We reviewed kick counts (BID), as well as PTL and preeclampsia signs and symptoms. 8. Keep all appts with Dr. Padilla 9. Twice weekly testing 10. Reassess growth in 4 weeks 11. MFM f/u visit in 1 week Javon Herrera MD MFM documented in this encounter Plan of Treatment Not on file documented as of this encounter Procedures Procedure Name Priority Date/Time Associated Diagnosis Comments SONOGRAM - COMPLETE Routine 04/18/2022 1 :30 PM CDT Second (HCC) Type 2 diabetes mellitus without complication, unspecified whether fdc insulin use (HCC) Family history of congenital heart defect Rh negative, antepartum (HCC) Anxiety and depression Morbid (severe) obesity due to excess calories (HCC) 31 weeks gestation of (HCC) documented in this encounter Results * SONOGRAM - COMPLETE (04/18/2022 1:30 PM CDT) Anatomical Region Laterality Modality Other 04/18/2022 1:30 PM CDT Narrative 04/19/2022 9:33 AM CDT ? [facility] ?PHONE: ??FAX: Pat. Name: ?BRANDIE TORRES Karin. No: ?[id number] Study Date: ?? 04/18/2022 ??1:30pm , Age: ? 2000, 21 Pregnancies: ?? 2, Para 1 Height: ? 64 in Weight: ? 285 lb LMP: ?Unknown GA by US: ? 30w6d ?? KYLEE: 06/21/2022 GA Selected: ??31w3d (Outside Scan) KYLEE: ?06/17/2022 Referring MD: Funmi Padilla MD Pallet Rectifier: ??Benita Armijo, RDAK, RD CPT4: ? 85009,10468 BMI: ?48.91 Hist/Ind: ? Short interval ?Hx GDM ?Hx gHTN ?Class III obesity ?FOB-HLHS MEASUREMENTS & AGE ? GROWTH EVALUATION Measurement ??GA ? Range ? Srce %for GA Ratios ----- ---- ------- BPD ??7.6 cm 30w2d ([id number]) Hadl BPD 11% FL/BPD 0.79 (0.71 - 0.87) HC ??28.7 cm 31w4d ([id number]) Hadl HC ??19% FL/AC ??0.22 (0.20 - 0.24) AC ??27.7 cm 31w5d ([id number]) Hadl AC ??58% HC/AC ??1.04 (0.96 - 1.15) FL ?? 6.0 cm 31w0d (39b2u-84b0n) Hadl FL ??26% CI ? 0.73 (0.70 - 0.86) HL ?? 5.4 cm 31w2d ([id number]) Jose HL ??47% GA for sonogram 30w6d ([id number]) ?? Weight Estimate: based on (BPD,HC,AC,FL) Hadlock [...] Signature> ??04/18/2022 02:40pm Revised Uriel Walker MD [facility] ORDERABLES documented in this encounter Visit Diagnoses Diagnosis Second (HCC)- Primary state, incidental Type 2 diabetes mellitus without complication, unspecified whether fdc insulin use (HCC) Family history of congenital heart defect Family history of congenital anomalies Rh negative, antepartum (HCC) Rhesus isoimmunization affecting management of mother, antepartum condition Anxiety and depression Dysthymic disorder Morbid (severe) obesity due to excess calories (HCC) 31 weeks gestation of (HCC) state, incidental History of gestational hypertension Morbid obesity (HCC) Morbid obesity Dysuria during in third trimester (HCC) documented in this encounter Care Teams Electric Power Superintendent Relationship Specialty Start Date End Date Christine Peterson MD [address] [phone] PCP - General Pediatrics 07/29/18 documented as of this encounter
--- OUTSIDE RECORDS SUMMARY | 2024-11-10 05:56 | XMS_ITS | Encounter Summary ---
Author Organization [facility] Address [address] [place] [address] Care Team Providers Care Aviculturist Name Role Phone Christine Peterson MD Primary Care Provider [phone] Reason for Visit * Reason Onset Date Comments Reschedule Appointment 05/13/2022 Encounter Details Date Type Department Care Team (Late st Contact Info) Description 05/13/2022 Telephone [facility] [address] [place] [id number] Bere Frausto Reschedule Appointment Social History Tobacco Use Types Packs/Day Years [...] on file documented as of this encounter Plan of Treatment Not on file documented as of this encounter Visit Diagnoses Not on filedocumented in this encounter Care Teams Aviculturist Relationship Specialty Start Date End Date Christine Peterson MD [address] [facility] [address] [place] [phone] PCP - General Pediatrics 07/29/18 documented as of this encounter
--- OUTSIDE RECORDS SUMMARY | 2024-11-10 05:56 | XMS_ITS | Encounter Summary ---
Author Organization [facility] Address [address] [facility] [place] [address] Care Team Providers Care Editor At Large Name Role Phone Christine Peterson MD Primary Care Provider [phone] Reason for Visit * Reason Onset Date Comments Missed Appointment 07/16/2021 Left VM chad cabrera missed appt Encounter Details Date Type Department Care Team (Late st Contact Info) Description 07/16/2021 Telephone [facility] Maternal & Care [address] [place] [id number] Antonieta Rose, RN Missed Appointment (Left VM regarding missed appt) Social History Tobacco Use Types Packs/Day Years [...] encounter Miscellaneous Notes * Telephone Encounter - Antonieta Rose RN - 07/16/2021 1:32 PM CDT I left a VM regarding missed appt last week and testing, as well as, How is patient doing? Call if you need anything. Will you come back to [facility] or just continue to see your primary OB, Dr. Farmer? documented in this encounter Plan of Treatment Not on file documented as of this encounter Visit Diagnoses Diagnosis Supervision of normal first , antepartum (HCC) Family history of congenital heart defect Family history of congenital anomalies documented in this encounter Care Teams Editor At Large Relationship Specialty Start Date End Date Christine Peterson MD [address] [phone] PCP - General Pediatrics 07/29/18 documented as of this encounter
--- OUTSIDE RECORDS SUMMARY | 2024-11-10 05:56 | XMS_ITS | Encounter Summary ---
Author Organization [facility] Address [address] [facility] [place] [address] Care Team Providers Care Wholesale Manager Name Role Phone Christine Petreson MD Primary Care Provider Reason for Visit * Reason Comments Biophysical Profile FAD NST Agency Residence Updates Diabetes Focus Follow-up Encounter Details Date Type Department Care Team (Latest Contact Info) Description 04/30/2022 9:00 AM CDT - 04/30/2022 11:59 PM CDT Hospital Encounter [facility] Women's Health Maternal & Care [address] [place] [address] Jimmie Chang MD [address] [phone] Discharge Disposition: Home or Self Care Social [...] Sign Reading Time Taken Comments Blood Pressure 133/86 04/30/2022 10:00 AM CDT Pulse 100 04/30/2022 10:00 AM CDT Temperature - - Respiratory Rate 18 04/30/2022 10:00 AM CDT Oxygen Saturation - - Inhaled Oxygen Concentration - - Weight 132.5 kg (292 lb) 04/30/2022 10:00 AM CDT Height - - Body Mass Index 48.59 04/18/2022 2:08 PM CDT documented in this [...] Glucagon (BAQSIMI ONE PACK) 3 MG/DOSE POWD [place] 3 mg into the nose as needed [...] or as directed. 100 Each 11 08/25/2018 OneTouch Delica Lancets 33G MISC Use 1 Each as directed 100 Each 2 04/30/2022 Vit-Fe Fumarate-FA ( VITAMIN) 28-0.8 MG tabletIndications:Pr egnancy Take 1 tablet by mouth once daily Reasons: sertraline (ZOLOFT) 50 MG tablet Take 50 mg by mouth once daily blood glucose (IVAN CONTOUR NEXT TEST) test strip Use to test blood sugar twice daily or as directed. 100 strip 11 08/25/2018 05/14/2022 blood glucose (E-GeneratorTOUCH VERIO) test strip Use 1 (one) strip 4 times daily 100 strip 2 04/30/2022 05/14/2022 insulin detemir (LEVEMIR) pen Inject 24 (twenty four) Units to 74 (seventy four) Units subcutaneously as directed Start with 10u in morning, 14 in evening. Increase as directed. 30 mL 3 04/30/2022 05/14/2022 insulin lispro (HUMALOG KWIKPEN) 200 UNIT/MLIndications:G estational Diabetes Inject 16 (sixteen) Units to 50 (fifty) Units subcutaneously as directed Start with 4u before bfast & lunch, 8u before dinner. Increase as directed Reasons: Diabetes During 15 mL 4 04/30/2022 05/14/2022 Insulin Pen Needle 32G X 4 MM MISC Use 1 Each 5 times daily 200 Each 3 04/30/2022 05/14/2022 documented as of this encounter Progress Notes * Mariola Valladares RN - 04/30/2022 10:05 AM CDT PT. SCREENED FOR COVID 19 BEFORE ENTERING OFFICE, SEE SEPARATE NOTE. Pt here for NS/ BPP/ CDE and PLATE DEVELOPER visit. Pt reports feeling movement. Pt reports intermittent contractions, or cramping, c/o pain in her pelvic area, from a fall off of the exam table at her OB appt a few weeks ago. Pt rates at a 4 -5. Pt states her OB was going to order some PT. Denies loss offluid, vaginal bleeding, epigastric pain or unrelieved headaches. Pt reports edema in her feet and legs. Pt's next OB visit is today at 3pm. Reviewed home meds with pt. Pt copying her glucose logs to paper for review. CK Lisa in room to see pt. Princess Jose NP in room to see pt and no new orders received. Dr. Chang to review NST, via remote, reactive. BP 06/10 Name: Brandie Torres Date of : 2000 Today's Date: 04/30/2022 33w1d NST RESULTS (SAAVEDRA) OBJECTIVE FINDINGS , Pulse: 100, Resp: 18, BP: 133/86 NST Indication(s): Diabetes Uterine Irritability: No Contractions: Not present OBJECTIVE FINDINGS Movement: Present Monitoring Mode: External Baseline: 130 BPM Variability: Moderate Decelerations: None Accelerations: Yes OTHER INFORMATION Mariola Valladares RN * Yasmin Jose APRN-HOMERO - 04/30/2022 9:13 AM CDT [facility] follow up visit Brandie Torres is a 21 year old 33w1d. We are following her for GDM, family history of congenital heart defect, obesity, anxiety/depression, chronic tension HAs. She has no complaints today. She presents with blood sugar logs for review. She denies feeling any lows. Reports compliance with Levemir 14u HS. Reports having difficulty affording insulin due to copay. Reports noncompliance with ASA. States PT was discussed at last OB appt for pelvic pain since falling off the exam table at her last OB appt and plans to discuss again today. Reports normal HAs . She reports good FM, no bleeding, no LOF, no DC, no contractions, no vision changes, RUQ pain, or swelling. Genetic screening/testing: previously declined Her is complicated by: Patient Active Problem List Diagnosis Date Noted ??? Supervision of high-risk of young multigravida 04/30/2022 Priority: Not Prioritized ??? Chronic tension headaches 06/13/2021 Priority: Not Prioritized ??? pre-diabetes now gestational diabetes mellitus (GDM) 03/26/2021 Priority: Not Prioritized ??? Morbid obesity 06/13/2021 Pre BMI> 40. ??? Anxiety and depression 06/13/2021 ??? Family history of congenital heart defect 03/26/2021 FOB with hypoplastic left heart. Exam: BP 133/86 (BP SITE: RIGHT ARM, BP POSITION: SITTING, BP CUFF SIZE: 11) Pulse 100 Resp 18 Wt 292 lb (132.5 kg) BMI 48.59 kg/m2 General: NAD Abdomen: soft, NT Extremities: equal in size and width bilaterally, NT, no sign of edema FHT: per US Urine dip: negative glucose, negative ketones, trace protein, negative blood Labs: HgbA1c = 5.8 on 03/22/22 US: Please see report for details. Impressions/Recs 1. IUP (Intrauterine ) at 33w1d 2. GDMA2 She presents with blood sugar logs for review. Logs reviewed in detail with myself and the diabeticeducator. She denies feeling any lows. Current insulin regimen: Levemir 14HS New insulin regimen: Levemir 08/16, LOG Advised patient to notify our office if unable to afford rapid acting insulin. After hours triage number provided S/p nutrition counseling at initial visit. Glucagon provided. We reviewed the target glucose ranges to minimize excessive growth and optimize outcomes. These are: Fasting 60-90 mg/dl; preprandial 60-105 mg/dl; and 1-hour postprandial <130 mg/dl. Antepartum testing Recommend BID kick counts. 2x weekly NST/weekly BPP is recommended starting at 32 weeks or sooner if indicated and continuing until delivery (other NST being done with our [facility] office in [place]) Serial Ultrasound assessment of growth is recommended. Timing of Delivery If spontaneous delivery has not occurred by 39 weeks gestation, delivery may be planned between 39-40 weeks. If dating is uncertain, an amniocentesis for Lung Maturity may be performed prior toscheduled delivery. If complications, such as preeclampsia, macrosomia or poor glucose control develop, then delivery plans may need to be revised. Route of delivery Vaginal delivery may be anticipated unless the fetus is excessively large or there is an abnormal presentation. Diabetes is associated with about a six-fold risk for shoulder dystocia. Operative vaginal deliveries should be approached with caution. Glucose control in labor During labor, capillary glucose values should be checked every 1-2 hours (depending on their stability). Maintenance fluids with 5% dextrose are infused to prevent starvation ketosis. If the glucose values exceed 110 mg/dl, an insulin infusion is recommended. Long-term diabetes surveillance The risk of this patient developing diabetes outside of over the next five years may be as high as 50%. I recommend that she have a 2 hr 75 gram load gtt at 6 to 8 weeks and counseling about ways to minimize her risk. If her testing is normal, annual glucose screening by her primary care physician is advised. In any future pregnancies, she should have a HGBA1C drawn with her p renatal panel and if wnl, then a 1 hr gtt at 14-18 weeks. If WNL, then repeat 1 hr gtt at 26-28 weeks. 3. Obesity - Nutrition counseling is appropriate if she has difficulty in keeping her weight down. - Activity/exercise in addition to dietary management is encouraged. - Total weight gain of </= 15 lbs. Active weight loss is not encouraged. - Would benefit from and PP weight loss 4. Anxiety/Depression Reports mood to be stable Denies SI/HI Continue Zoloft, managed by primary OB Peds to be notified of medication use ER precautions given 5. Family history of congenital heart defect ECHO scheduled 05/10/22 at 1:00PM at [facility]. Patient aware of date and time. 6. Chronic tension HARDEN Continue symptomatic treatment 7. We reviewed kick counts (BID), as well as PTL and preeclampsia signs and symptoms. 8. RTC: weekly NST/US/DE/PLATE DEVELOPER, other NST being done at [facility] office in [place]. 9. Keep all appointments with primary OB I spent 35 minutes with the patient, greater than 50% of the time was spent face to face in discussion with the patient the remainder of the time was spent in chart prep and data review. Please be advised that these recommendations are being made in the best interest of our patients during the COVID 19 Pandemic. The patient is to follow up with her primary obstetrical care provider for her routine care and acute OB care including delivery as clinically indicated. Once again, we appreciate the opportunity to assist you in the care of your patient. If issues arise for which I can be of help before her next visit here, please contact me directly, or contact one of the [facility] physicians. AFRICA Jorge 04/30/2022 11:00 AM * Zee Burns RN - 04/30/2022 8:53 AM CDT Diabetes Self Management Education & Support Brandie Torres is a 21 year old 33w1d Estimated Date of Delivery: 06/17/22 Indication: GDM Risk factors: hx A2GDM, mother and gma with diabetes, obesity Medical history includes anx/dep; chronic headaches; depression Maternal Labs and Anthropomorphic Assessment Recent Labs Component Name 08/25/18 0932 05/22/16 0921 HGBA1C 6.7* 5.8 Assessment Growth US Date 04/18 Weight 37 %ile AC 58%ile KAROL 16 DM Medications/Insulin Pt currently taking medications as prescribed: yes Adjustments today per review with GRAYSON Riggs ( ) = doses prior to adjustments Insulin Breakfast Lunch Dinner HS Levemir 10 (0) 14 Log 4 (0) 4 (0) 8 (0) Further review of: Insulin Type/s, Dose Instruction and Timing of Insulin Indication for Glucagon/Baqsimi Confirmed that patient has adequate supplies with refills. Monitoring and Glycemic Control Pt does email logs or bring logs for review. Frequency of Testing: tid Dates 04/22- Fasting range: 72 to 115 mg/dl; 2/3 elevations PP Bfast range: 104 to 201 mg/dl; 4/6 elevations PP Lunch range: 114 to 174 mg/dl; 3/5 elevations PP Dinner range: 163 to 193 mg/dl; 6/6 elevations Further education today on: Times to Check, How to keep logs and Reporting numbers to physican/educator Meal Planning: Patient's comments/perceptions regarding diet: Substituted diet soda and drinking lots of water. Bfast typically donut or honey bun. Resistant to any suggestions that require preparation. Offered list of snacks/easy bfast options. Dinner usually at [employer] where she works. Being Active: Is on feet active at work. Acute Complications Reviewed recognition/prevention/tx hyperglycemia/hypoglycemia; warning levels and when to call Has glucagon/Baqsimi and is able to recount indication Finding Resources / Support The Mom's Line: [phone] Phone apps: One Touch Reveal Plan: Email logs at least weekly to [email or web address] to allow assessment of glycemic control andoptimal adjustment of treatment plan. Provide details regarding content of meals, timing of tests, activity, health. Contact office if reply not received within 24 hr period. Contact [facility] for emergencies: [phone]. Engagement: 90% Understandin% documented in this encounter Plan of Treatment Not on file documented as of this encounter Procedures Procedure Name Priority Date/Time Associated Diagnosis Comments BIOPHYSICAL PROFILE W NST Routine 04/30/2022 9:20 AM CDT Encounter for supervision of normal first in third trimester (HCC) Diet controlled gestational diabetes mellitus (GDM) in third trimester (HCC) documented in this encounter Results * BIOPHYSICAL PROFILE W NST (04/30/2022 9:20 AM CDT) Anatomical Region Laterality Modality Other 04/30/2022 9:20 AM CDT Narrative 04/30/2022 10:59 AM CDT ? - [facility] ?PHONE: ??FAX: ? Pat. Name: ?BRANDIE TORRES Pat. No: ?[id number] Study Date: ?? 04/30/2022 ??9:20am , Age: ? 2000, 21 Pregnancies: ?? 2, Para 1 Height: ? 64 in Weight: ? 285 lb LMP: ?Unknown GA by Base: ?? 33w1d ?? KYLEE: 06/17/2022 GA Selected: ??33w1d (From [facility]) KYLEE: ?06/17/2022 Referring MD: Funmi Padilla MD Group Social Worker: ??Rylee Mendes RDMS, MATTHEW CPT4: ? 33412,68850 BMI: ?48.91 Hist/Ind: ? Short interval ?Hx GDM ?Hx gHTN ?Class III obesity ?FOB-HLHS Heart Rate: 141 bpm Amniotic Fluid Index: 18.2cm (08.3-24.5) Q1: 7.8cm ??Q2: 5.6cm ??Q3: 4.9cm ??Q4: 0.0cm ?? Biophysical Profile: 08/12 Breathin ?? Tone: 2 ?? NST: 2 Movement: ??2 ?? AFV: ??2 EVAL, PLACENTA Presentation: breech Umbilical Cord: 3 Vessels Placenta: anterior Heart Rate: 141 bpm Amniotic Fluid Volume: normal Anatomy!Normal!Abnormal!Suboptimal!Prev. Seen!Comments Cranium ?! ?? x ??! ?! ?! ? x ?! Mdl (CSP/Thal! [...] ?! ?! ? x ?! Spine ?! ?? x ??! ?! ?! ?! Lungs ?! ?! ?! ?! ? [...] ?! ? x ?! Aortic Arch ??! ?! ?! ? x ?! ?! Caval View ?? ! ?! ?! ?! ? x ?! Situs ?! ?! ?! ?! ? x ?! Diaphragm ?! ?! ?! ?! ? x ?! Stomach ?! ?? x ??! ?! ?! ? x ?! Liver ?! ?! ?! ?! ? x ?! Bowel ?! ?? x ??! ?! ?! ? x ?! Kidneys ?! ?? x ??! ?! ?! ? x ?! Bladder ?! ?? x ??! ?! ?! ? x ?! 3 Vessel Cord! ?! ?! ?! ? x ?! Cord In! ?! ?! ?! ? x ?! Upper Extremi! ?! ?! ?! ? x ?! Hands ?! ?! ?! ? x ?! ?! Lower Extremi! ?! ?! ?! ? x ?! Feet ? ! ?! ?! ? x ?! ?! External Pretty! ?! ?! ? x ?! ?! Placental Cor! ?! ?! ?! ? x ?! CLINICAL SUMMARY Study Number: 2 ??A single fetus is seen in breech presentation. ??The amniotic fluid volume is within normal limits. ??The FHR baseline is 135 bpm during today's reactive NST. ??The FHR variability was moderate. ?? IMPRESSION: Single, live, intrauterine at 33w1d Amniotic fluid volume: within normal limits ?? Biophysical profile: Normal (08/12) ?? RECOMMEND: Continue weekly testing ?? Repeat growth assessment in every 4 weeks ?? Thank you for allowing us the opportunity to care for your patient. ?? Gulshan Barnes MD <Electronic Signature> ??04/30/2022 10:58am Libby Farmer MD [facility] ORDERABLES documented in this encounter Visit Diagnoses Diagnosis Second (HCC)- Primary state, incidental Family history of congenital heart defect Family history of congenital anomalies Rh negative, antepartum ([facility]) Rhesus isoimmunization affecting management of mother, antepartum condition Type 2 diabetes mellitus without complication, unspecified whether fpc insulin use (HCC) Morbid (severe) obesity due to excess calories (HCC) Anxiety and depression Dysthymic disorder Short interval between pregnancies affecting , antepartum (HCC) 33 weeks gestation of (HCC) state, incidental Encounter for supervision of normal first in third trimester (HCC) Supervision of normal first Diet controlled gestational diabetes mellitus (GDM) in third trimester ([facility]) documented in this encounter Care Teams Wholesale Manager Relationship Specialty Start Date End Date Christine Peterson MD [address] [id number] PCP - General Pediatrics 07/29/18 documented as of this encounter
--- OUTSIDE RECORDS SUMMARY | 2024-11-10 05:56 | XMS_ITS | Encounter Summary ---
Author Organization [facility] Address [address] [place] [address] Care Team Providers Care Office Machine Servicer Apprentice Name Role Phone Christine Peterson MD Primary Care Provider [phone] Reason for Visit * Reason Onset Date Comments Appointment 04/24/2022 Encounter Details Date Type Department Care Team (Late st Contact Info) Description 04/24/2022 Telephone [facility] [address] [place] [id number] Bere Frausto Appointment Social History Tobacco Use Types Packs/Day [...] on filedocumented in this encounter Care Teams Office Machine Servicer Apprentice Relationship Specialty Start Date End Date Christine Peterson MD 2 [facility] [address] [place] [phone] PCP - General Pediatrics 07/29/18 documented as of this encounter
--- OUTSIDE RECORDS SUMMARY | 2024-11-10 05:56 | XMS_ITS | Encounter Summary ---
Author Organization [facility] Address [address] [place] [place] [address] Care Team Providers Care Real Estate Investment Analyst Name Role Phone Christine Peterson MD Primary Care Provider [phone] Reason for Visit * Reason Onset Date Comments Appointment 07/20/2021 Pt called to R/S missed appt. Told her I had just canceled all her future appts and to hold a minute so I could see when her next appt was. When I picked phone back up, she had hung up. Tried calling pt back and there was no answer. Encounter Details Date Type Department Care Team (Late st Contact Info) Description 07/20/2021 Telephone [facility] Women's Health Maternal & Care [address] [place] [id number] Jerrica Bradley Appointment (Pt called to R/S missed appt. Told her I had just canceled all her future appts and to hold a minute so I could see when her next appt was. When I picked phone back up, she had hung up. Tried calling pt back and there was no answer.) Social History Tobacco Use Types Packs/Day Years [...] on filedocumented in this encounter Care Teams Real Estate Investment Analyst Relationship Specialty Start Date End Date Christine Peterson MD [address] [id number] PCP - General Pediatrics 07/29/18 documented as of this encounter
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
--- OUTSIDE RECORDS SUMMARY | 2024-11-10 05:56 | XMS_ITS | Encounter Summary ---
Author Organization [facility] Address [address] [place] [place] [address] Care Team Providers Care Blood Donor Recruiter Supervisor Name Role Phone Christine Peterson MD Primary Care Provider [phone] Reason for Visit * Reason Onset Date Comments Appointment 07/17/2021 Left msg. Asking pt to call & let us all know she is ok. Worried about her. Encounter Details Date Type Department Care Team (Late st Contact Info) Description 07/17/2021 Telephone [facility] Women's Health Maternal & Care [address] [place] [address] [place] Appointment (Left msg. Asking pt to call & let us all know she is ok. Worried about her.) Social History Tobacco Use Types Packs/Day Years [...] on filedocumented in this encounter Care Teams Blood Donor Recruiter Supervisor Relationship Specialty Start Date End Date Christine Peterson MD [address] [facility] [address] [place] [id number] PCP - General Pediatrics 07/29/18 documented as of this encounter
--- OUTSIDE RECORDS SUMMARY | 2024-11-10 05:56 | XMS_ITS | Encounter Summary ---
Author Organization [facility] Address [address] [facility] [place] [address] Care Team Providers Care Portable Machine Sander Name Role Phone Christine Peterson MD Primary Care Provider [phone] Reason for Visit * Reason Comments Non-stress Test Encounter Details Date Type Department Care Team (Latest Contact Info) Description 05/10/2022 9:26 AM CDT - 05/10/2022 11:59 PM CDT Hospital Encounter [facility] Maternal & Care [address] [place] [address] Gulshan Barnes MD Dildy, Gary A, MD [address] [address] Discharge Disposition: Home or Self [...] Sign Reading Time Taken Comments Blood Pressure 132/78 05/10/2022 10:10 AM CDT Pulse 89 05/10/2022 10:10 AM CDT Temperature - - Respiratory Rate [...] Glucagon (BAQSIMI ONE PACK) 3 MG/DOSE POWD Bixby 3 mg into the nose as needed [...] 100 strip 11 08/25/2018 05/14/2022 blood glucose (ONETOUCH VERIO) test strip Use [...] Progress Notes * Antonieta Rose RN - 05/10/2022 10:46 AM CDT Name: Brandie Torres Date of : 2000 Today's Date: 05/10/2022 34w4d NST RESULTS (SAAVEDRA) OBJECTIVE FINDINGS , Pulse: 89, , BP: 132/78 NST Indication(s): Diabetes Uterine Irritability: Yes Contractions: Regular Frequency: x4-5 (patient feeling some tightening in upper abdomen, PTL precautions.) Duration (sec) Range: 30-50 Perceived Intensity: Mild OBJECTIVE FINDINGS Movement: Present Monitoring Mode: External Baseline: 125 BPM Variability: Moderate Decelerations: None Accelerations: Yes OTHER INFORMATION Comments: NST [id number] Patient reports she is feeling some contractions. Patient given PTL precautions and aware to go to [facility] where she is to deliver for evaluation of 6 or more contractions per hour. Antonieta Rose RN Associated attestation - Jimmie Chang MD - 05/10/2022 10:57 AM CDT NST is reactive with 120 bpm baseline & moderate variability & discontinuous tracing at times. documented in this encounter Plan of Treatment Scheduled Orders Name Type Priority Associated Diagnoses Orde r Schedule NON-STRESS TEST MATRNL MED Routine Diet controlled gestational diabetes mellitus (GDM) in third trimester ([facility]) 1 Occurrences starting 05/10/2022 until 05/10/2022 documented as of this encounter Visit Diagnoses Diagnosis Morbid obesity (HCC)- Primary Morbid obesity Diet controlled gestational diabetes mellitus (GDM) in third trimester ([facility]) Supervision of high-risk of young multigravida ([facility]) Supervision of high-risk of young multigravida Family history of congenital heart defect Family history of congenital anomalies 33 weeks gestation of ([facility]) state, incidental documented in this encounter Care Teams Portable Machine Sander Relationship Specialty Start Date End Date Christine Peterson MD 2 [facility] [address] [place] [id number] PCP - General Pediatrics 07/29/18 documented as of this encounter
--- OUTSIDE RECORDS SUMMARY | 2024-11-10 05:56 | XMS_ITS | Encounter Summary ---
Author Organization [facility] Address [address] [place] [address] Care Team Providers Care Vending Machine Repairer Name Role Phone Christine Peterson MD Primary Care Provider [phone] Reason for Visit * Reason Comments Ultrasound FAD NST Diabetes Focus Follow-up Follow-up With CLAIM ATTORNEY Encounter Details Date Type Department Care Team (Latest Contact Info) Description 05/14/2022 9:45 AM CDT - 05/14/2022 11:59 PM CDT Hospital Encounter [facility] Maternal & Care [address] [place] [address] Javon Herrera MD [address] [address] Discharge Disposition: Home or Self Care Social [...] Sign Reading Time Taken Comments Blood Pressure 133/75 05/14/2022 10:00 AM CDT Pulse 99 05/14/2022 10:00 AM CDT Temperature - - Respiratory Rate - - Oxygen Saturation - - Inhaled Oxygen Concentration - - Weight 133.5 kg (294 lb 6.4 oz) 022 10:00 AM CDT Height - - Body Mass Index 48.99 04/18/2022 2:08 PM CDT documented in this encounter Medications at Time of Discharge Medication Sig Dispensed Refills Start Date End Date acetaminophen (TYLENOL) 500 MG tabletIndications:Yuliet n Take 500 mg by mouth every 6 hours as needed for Fever or Pain Maximum allowable Acetaminophen amount = 4 Grams (4000 mg) / 24 hours. Reasons: Pain aspirin (ASPIRIN) 81 MG chew tablet Take 162 mg by mouth once daily blood glucose (ONETOUCH VERIO) test strip Use 1 (one) strip 4 times daily 100 strip 2 05/14/2022 Glucagon (BAQSIMI ONE PACK) 3 MG/DOSE POWD [place] 3 mg into the nose as needed 1 Each 04/19/2022 Glucagon, rDNA, (GLUCAGON EMERGENCY) 1 MG KIT Inject 1 (one) mg subcutaneously as needed 1 Each 1 06/27/2021 hydrOXYzine hcl (ATARAX) 25 MG tabletIndications:Anx iety Take 1 (one) tablet by mouth 3 times daily as needed (anxiety) Reasons: Feeling Anxious 90 tablet 5 06/13/2021 insulin detemir (LEVEMIR) pen Inject 14 (fourteen) Units to 50 (fifty) Units subcutaneously as directed Start with 14 units at 6pm. Increase as directed. 15 mL 2 05/14/2022 insulin lispro (HUMALOG KWIKPEN) 200 UNIT/MLIndications:Ge stational Diabetes Inject 16 (sixteen) Units to 50 (fifty) Units subcutaneously as directed Start with 4u before bfast & lunch, 8u before dinner. Increase as directed Reasons: Diabetes During 15 mL 4 05/14/2022 Insulin Pen Needle 32G X 4 MM MISC Use 1 Each 5 times daily 200 Each 3 05/14/2022 Lancets (MICROLET) MISC Use 5-9 Each once daily Use to check blood sugar twice daily or as directed. 100 Each 11 08/25/2018 OneTouch Delica Lancets 33G MISC Use 1 Each as directed 100 Each 2 04/30/2022 Vit-Fe Fumarate-FA ( VITAMIN) 28-0.8 MG tabletIndications:Pre gnancy Take 1 tablet by mouth once daily Reasons: sertraline (ZOLOFT) 50 MG tablet Take 50 mg by mouth once daily documented as of this encounter Progress Notes * Jo Espinal RN - 05/14/2022 10:51 AM CDT Pt here today for ultrasound, NST, follow up with coding educator, and follow up with CLAIM ATTORNEY. She reports feeling good movement. She reports a lot of pelvic discomfort in the past few weeks. She has a maternity belt to help but she does not wear it. She rates her pelvic pain a 4-5 today on a 0-10 pain scale. She denies leakage of fluid/bleeding. She reports frequent headaches but she states this is normal for her. She denies visual changes, edema, and epigastric pain. Denies urinary s/s today. NST reactive, reviewed by Dr. Herrera. Pt was seen by Maricel for diabetic follow up today. Pt presents with having e- mailed her logs for review. She is taking Levemir for blood sugar control, but only once HS. She has not been taking it in the morning and has not started Humalog yet d/t not having money for her co-pay for the Insulin. Pt states that she is getting paid today and will be able to get the Humalog and a refill on the Levemir. Please see Maricel's note for further plan for diabetic management. Pt was seen by Princess Jose NP today for follow up. Please see her note for further POC. She will follow up at [facility] for NST on 05/17. She will return on 05/21 for US/NST/DE/CLAIM ATTORNEY. * Zee Burns RN - 05/14/2022 10:13 AM CDT Diabetes Self Management Education & Support Brandie Torres is a 21 year old 35w1d Estimated Date of Delivery: 06/17/22 Indication: A2GDM Risk factors: hx A2GDM, mother and gma with diabetes, obesity Medical history includes anx/dep; chronic headaches; depression ? Maternal Labs and Anthropomorphic Assessment Recent Labs Component Name 08/25/18 0932 05/22/16 0921 HGBA1C 6.7* 5.8 ?? Assessment Growth US Date 04/18 Weight 37 %ile AC 58%ile KAROL 16 ?? DM Medications/Insulin Pt currently taking medications as prescribed: no Pt is prescribed the insulin indicated in chart below. Pt is taking only 14 units of Levemir qpm due to cost of insulin, copay. She received paycheck today and now can afford to berry picker in insulin. ?? Insulin Breakfast Lunch Dinner HS Levemir 10 ? 14 Log 4 4 8 ? Adjustments today per review with GRAYSON Riggs ( ) = doses prior to adjustments?? Insulin Breakfast Lunch Dinner HS Levemir 0(10 ) ?? 14 at 6pm?? Log 4 4 6 6 ??after overnight meal Further review of: Insulin Type/s, Dose Instruction and Timing of Insulin Indication for Glucagon/Baqsimi Confirmed that patient has adequate supplies with refills Monitoring and Glycemic Control Pt does email logs or bring logs for review. Dates 05/06- Premeal values: 87, 75, 76, 97. 111 AB: 124-187, 1/2 elevations AL: 120-142, 1/2 elevations AD: 145-197, 3/3 elevations AD#2: 137-185, 6/6 elevations Meal Planning: Pt works at [employer] and eats most of dinners there. Expanded meal plan education today: Identifying meals/snacks that show recommended portions of carbs and combination with protein/fat Developing grocery list Label reading and using resources to look up nutrition facts Making healthy choices when eating out or having fast food Being Active: Is meeting minimal amount of exercise - 30 exercise daily. Acute Complications Reviewed recognition/prevention/tx hyperglycemia/hypoglycemia; warning levels and when to call Has glucagon/Baqsimi and is able to recount indication Finding Resources / Support The Mom's Line: [phone] Phone apps: One Touch Reveal Plan: Email logs at least weekly to [email or web address] to allow assessment of glycemic control andoptimal adjustment of treatment plan. Provide details regarding content of meals, timing of tests, activity, health. Contact office if reply not received within 24 hr period. Contact [facility] for emergencies: [phone]. Engagement: 90 % Understandin % * Yasmin Jose, WAFER FAB TECHNICIAN-CORPORATE REAL ESTATE SPECIALIST - 05/14/2022 9:58 AM CDT [facility] follow up visit Brandie Torres is a 21 year old 35w1d. We are following her for GDM, family history of congenital heart defect, obesity, anxiety/depression, chronic tension HAs. ?? She has no complaints today. She presents with blood sugar logs for review. She denies any lows. States she can sometimes feel when her blood sugar is in the 70s. Reports compliance with Levemir 14u HS but could not afford to take the 10u in the morning. Reports having difficulty affording short acting insulin but can pick it up today since she recently got paid. Reports noncompliance with ASA. Re ports normal HAs and reports being aware of safe Tylenol use. Reports mood to be stable but feelslike she needs to restart Zoloft which she reports she stopped about a month ago. ?? She reports good FM, no bleeding, no LOF, no DC, no contractions, no vision changes, RUQ pain, or swelling. ?? Genetic screening/testing: previously declined Her is complicated [...] FOB with hypoplastic left heart. Exam: BP 133/75 (BP SITE: RIGHT ARM, BP POSITION: SITTING, BP CUFF SIZE: 11) Pulse 99 Wt 294 lb 6.4 oz (133.5 kg) BMI 48.99 kg/m2 General: NAD Abdomen: soft, NT Extremities: equal in size and width bilaterally, NT, no sign of edema FHT: per US Urine dip: 4+ glucose, trace ketones, trace protein, negative blood Labs: HgbA1c = 5.8 on 03/22/22 US: Please see report for details. Impressions/Recs 1. IUP (Intrauterine ) at 35w1d 2. GDMA2 She presents with blood sugar logs for review. Logs reviewed in detail with myself and the diabeticeducator. She denies feeling any lows. Current insulin regimen: Levemir 14HS, LOG , encouraged to continue Levemir 14u HS but to takeearlier in the evening and then to berry picker rapid acting insulin today. See DE note for more details. ?? After hours triage number provided S/p nutrition counseling at initial visit. Glucagon provided. ?? We reviewed the target glucose ranges to minimize excessive growth and optimize outcomes. These are: Fasting 60-90 mg/dl; preprandial 60-105 mg/dl; and 1-hour postprandial <130 mg/dl. ?? Antepartum testing Recommend BID kick counts. 2x weekly NST/weekly BPP until delivery (other NST being done with our [facility] office in [place]) Serial Ultrasound assessment of growth is recommended. ?? Timing of Delivery If spontaneous delivery has not occurred by 39 weeks gestation, delivery may be planned between 39-40 weeks. If dating is uncertain, an amniocentesis for Lung Maturity may be performed prior toscheduled delivery. If complications, such as preeclampsia, macrosomia or poor glucose control develop, then delivery plans may need to be revised. ?? Route of delivery Vaginal delivery may be anticipated unless the fetus is excessively large or there is an abnormal presentation. Diabetes is associated with about a six-fold risk for shoulder dystocia. Operative vaginal deliveries should be approached with caution. ?? Glucose control in labor During labor, capillary glucose values should be checked every 1-2 hours (depending on their stability). Maintenance fluids with 5% dextrose are infused to prevent starvation ketosis. If the glucose values exceed 110 mg/dl, an insulin infusion is recommended. ?? Long-term diabetes surveillance The risk of this [...] repeat 1 hr gtt at 26-28 weeks. ?? 3. Obesity - Nutrition counseling is appropriate if she has difficulty in keeping her weight down. - Activity/exercise in addition to dietary management is encouraged. - Total weight gain of </= 15 lbs. Active weight loss is not encouraged. - Would benefit from and PP weight loss ?? 4. Anxiety/Depression Reports mood to be stable but feels she needs to restart Zoloft. Denies SI/HI Encouraged to restart and continue Zoloft, managed by primary OB Peds to be notified of medication use ER precautions given ?? 5. Family history of congenital heart defect ECHO scheduled 05/10/22 at 1:00PM at [facility]. Patient missed appointment and has not called them back to reschedule. Encouraged to call back CINTHYA, if unable to complete echo would recommend elvaluation as indicated. ?? 6. Chronic tension HARDEN Continue symptomatic treatment ?? 7. We reviewed kick counts (BID), as well as PTL and preeclampsia signs and symptoms. ?? 8. RTC: weekly NST/US/DE/CLAIM ATTORNEY, other NST being done at [facility] office in [place]. ?? 9. Keep all appointments with primary OB I spent 30 minutes with the patient, greater than 50% [...] me directly, or contact one of the [facility] physicians. AFRICA Jorge 05/14/2022 11:15 AM documented in this encounter Plan of Treatment Not on file documented as of this encounter Procedures Procedure Name Priority Date/Time Associated Diagnosis Comments BIOPHYSICAL PROFILE W NST Routine 05/14/2022 11:07 AM CDT Encounter for supervision of normal first in third trimester (HCC) Diet controlled gestational diabetes mellitus (GDM) in third trimester (HCC) documented in this encounter Results * BIOPHYSICAL PROFILE W NST (05/14/2022 11:07 AM CDT) Anatomical Region Laterality Modality Other 05/14/2022 11:0 7 AM CDT Narrative 05/15/2022 10:33 AM CDT ?[facility] ?PHONE: ??FAX: ? Pat. Name: ?BRANDIE TORRES. No: ?[id number] Study Date: ?? 05/14/2022 ??11:07am , Age: ? 2000, 21 Pregnancies: ?? 2, Para 1 Height: ? 64 in Weight: ? 285 lb LMP: ?Unknown GA by Base: ?? 35w1d ?? KYLEE: 06/17/2022 GA Selected: ??35w1d (From [facility]) KYLEE: ?06/17/2022 Referring MD: Funmi Padilla MD Director Of Social Services: ??Merary Kramer RDMS CPT4: ? 76257,44231 BMI: ?48.91 Hist/Ind: ? Current GDM, on [...] Signature> ??05/14/2022 11:32am Revised Libby Farmer MD [facility] ORDERABLES documented in this encounter Visit Diagnoses Diagnosis Morbid obesity (HCC)- Primary Morbid obesity Diet controlled gestational diabetes mellitus (GDM) in third trimester ([facility]) Family history of congenital heart defect Family history of congenital anomalies Second ([facility]) state, incidental Short interval between pregnancies affecting , antepartum ([facility]) Rh negative, antepartum ([facility]) Rhesus isoimmunization affecting management of mother, antepartum condition 35 weeks gestation of ([facility]) state, incidental Encounter for supervision of normal first in third trimester ([facility]) Supervision of normal first documented in this encounter Care Teams Vending Machine Repairer Relationship Specialty Start Date End Date Christine Peterson MD [address] [phone] PCP - General Pediatrics 07/29/18 documented as of this encounter
--- OUTSIDE RECORDS SUMMARY | 2024-11-10 05:56 | XMS_ITS | Encounter Summary ---
Author Organization [facility] Address [address] [place] [address] Care Team Providers Care Business Partner Name Role Phone Christine Peterson MD Primary Care Provider [phone] Reason for Visit * Reason Comments Non-stress Test Encounter Details Date Type Department Care Team (Latest Contact Info) Description 05/17/2022 9:45 AM CDT - 05/17/2022 11:59 PM CDT Hospital Encounter [facility] Maternal & Care [address] [place] [id number] Gulshan Barnes MD Dildy, Gary A, MD [address] [phone] Discharge Disposition: Home or Self [...] Glucagon (BAQSIMI ONE PACK) 3 MG/DOSE POWD [place] 3 mg into the nose as needed [...] Progress Notes * Antonieta Rose RN - 05/17/2022 10:45 AM CDT Name: Brandie Torres Date of : 2000 Today's Date: 05/17/2022 35w4d NST RESULTS (SAAVEDRA) OBJECTIVE FINDINGS , Pulse: 77, , BP: 131/83 NST Indication(s): Diabetes Uterine Irritability: No Contractions: Not present OBJECTIVE FINDINGS Movement: Present Monitoring Mode: External Baseline: 120 BPM Variability: Moderate Decelerations: None Accelerations: Yes OTHER INFORMATION Comments: NST [id number] Patient reports positive movement. Denies cramping, bleeding, and leakage of fluid. Patient reports occasional contractions. Patient denies epigastric pain and visual changes. Patient states she had a headache and was feeling off, her blood sugar check was fine but she went to [place] ED forevaluation. Patient states they hydrated her and she went to L&D for monitoring. Patient reports they gave her a 24 hour UA to do. She is planning on doing it 05/19/22 on her day off. Antonieta Rose RN documented in this encounter Plan of Treatment Scheduled Orders Name Type Priority Associated Diagnoses Orde r Schedule NON-STRESS TEST MATRNL MED Routine Morbid obesity (HCC) Insulin controlled gestational diabetes mellitus (GDM) in third trimester (HCC) Supervision of high-risk of young multigravida (HCC) 35 weeks gestation of (HCC) 1 Occurrences starting 05/17/2022 until 05/17/2022 documented as of this encounter Visit Diagnoses Diagnosis Morbid obesity (HCC)- Primary Morbid obesity Insulin controlled gestational diabetes mellitus (GDM) in third trimester (HCC) Supervision of high-risk of young multigravida (HCC) Supervision of high-risk of young multigravida 35 weeks gestation of (HCC) state, incidental documented in this encounter Care Teams Business Partner Relationship Specialty Start Date End Date Christine Peterson MD [address] [place] [address] [place] [phone] PCP - General Pediatrics 07/29/18 documented as of this encounter
--- OUTSIDE RECORDS SUMMARY | 2024-11-10 05:56 | XMS_ITS | Encounter Summary ---
Author Organization [facility] Address [address] [place] [address] Care Team Providers Care Washroom Operator Name Role Phone Christine Peterson MD Primary Care Provider [phone] Reason for Visit * Reason Comments Non-stress Test Encounter Details Date Type Department Care Team (Latest Contact Info) Description 05/03/2022 9:36 AM CDT - 05/03/2022 11:59 PM CDT Hospital Encounter [facility] Maternal & Care [address] [place] [address] Gulshan Barnes MD Discharge Disposition: Home or Self Care Social [...] Sign Reading Time Taken Comments Blood Pressure 135/64 05/03/2022 10:33 AM CDT Pulse 89 05/03/2022 10:33 AM CDT Temperature - - Respiratory Rate [...] Glucagon (BAQSIMI ONE PACK) 3 MG/DOSE POWD [place] 3 mg into the nose as needed [...] Progress Notes * Antonieta Rose RN - 05/03/2022 10:37 AM CDT Name: Brandie Torres Date of : 2000 Today's Date: 05/03/2022 33w4d NST RESULTS (SAAVEDRA) OBJECTIVE FINDINGS , Pulse: 89, , BP: 135/64 NST Indication(s): Diabetes Uterine Irritability: Yes Contractions: Regular Frequency: 4-8 mins Duration (sec) Range: 30-60 Perceived Intensity: Mild OBJECTIVE FINDINGS Movement: Present Monitoring Mode: External Baseline: 130 BPM Variability: Moderate Decelerations: None Accelerations: Yes OTHER INFORMATION Comments: NST [id number] (Patient reports cxtns as mild, sent to [facility] for ptl evaluation.) Patient reports positive movement. Denies bleeding, and leakage of fluid. Patient denies headache, epigastric pain and visual changes. Patient reports lower abdominal cramping with contractions. Patient reports she has not had anything to drink yet today. Patient given 2 small water bottles to drink. Antonieta Rose, RN documented in this encounter Plan of Treatment Scheduled Orders Name Type Priority Associated Diagnoses Orde r Schedule NON-STRESS TEST MATRNL MED Routine Diet controlled gestational diabetes mellitus (GDM) in third trimester (HCC) 1 Occurrences starting 05/03/2022 until 05/03/2022 documented as of this encounter Visit Diagnoses Diagnosis Insulin controlled gestational diabetes mellitus (GDM) in third trimester (HCC)- Primary Morbid obesity (HCC) Morbid obesity Encounter for supervision of normal first in third trimester (HCC) Supervision of normal first 33 weeks gestation of (HCC) state, incidental Diet controlled gestational diabetes mellitus (GDM) in third trimester (HCC) documented in this encounter Care Teams Washroom Operator Relationship Specialty Start Date End Date Christine Peterson MD [address] [place] [phone] PCP - General Pediatrics 07/29/18 documented as of this encounter
--- OUTSIDE RECORDS SUMMARY | 2024-11-10 05:57 | XMS_ITS | Encounter Summary ---
Author Organization [facility] Address [address] [place] [address] Care Team Providers Care Advertising Manager Name Role Phone Daquan Brand MD Primary Care Provider Encounter Details Date Type Department Care Team (Late st Contact Info) Description 05/17/2011 11:03 AM CDT - 05/17/2011 11:59 AM T Hospital Encounter [facility] Pediatrics - Weight Management [address] [place] [address] Roma Kirby MD [address] [place] [phone] Weight Management Discharge Disposition: Home or Self Care Social History Tobacco Use Types Packs/Day Years Used Date Smoking Tobacco: Never Assessed Sex and Gender Information Value Date Recorded Sex Assigned at Not on file Gender Identity Not on file Sexual Orientation Not on file documented as of this encounter Plan of Treatment Not on file documented as of this encounter Visit Diagnoses Not on filedocumented in this encounter Care Teams Advertising Manager Relationship Specialty Start Date End Date Daquan Brand MD [address] [facility] [address] [place] [address] PCP - General 05/17/11 12/20/12 documented as of this encounter
--- OUTSIDE RECORDS SUMMARY | 2024-11-10 05:57 | XMS_ITS | Encounter Summary ---
Author Organization [facility] Healthcare Address [address] [place] [address] Care Team Providers Care Residential Appliance Repair Technician Name Role Phone Uriel Walker MD Primary Care Provider [phone] Reason for Referral * Diagnostic Imaging (Routine) - Authorized Specialty Diagnoses / Procedures Referred By Contac t Referred To Contact Diagnoses Sciatica without lumbago, right Procedures Imaging SI Joint Injection Right ([id number]) Sanket Das MD [id number] [place] [address] [address] [place] [address] Phone: tel: fax: [facility] [address] [place] [address] Phone: tel: fax: Referral ID Status Reason Start Date Expiration Date V isits Requested Visits Authorized [id number] Authorized 10/11/2024 11/10/2025 1 1 ER BREWERY Encounter Details Date Type Department Care Team (Late st Contact Info) Description 10/11/2024 Orders Only [facility] [address] [place] [phone] Sanket Das MD [address] [place] [address] [address] [place] [address] Sciatica without lumbago, right (Primary Dx) Social History Tobacco Use Types Packs/Day Years Used Date Smoking Tobacco: Every Day E-cigarettes Smokeless Tobacco: Former Chew Alcohol Use Standard Drinks/Week Comments Never 0 (1 standard drink = 0.6 oz pur e alcohol) AUDIT-C Answer Date Recorded Frequency of Alcohol Consumption Never 07/13/2019 Average Number of Drinks Not on file 019 Frequency of Binge Drinking Not on file 07/04 PHQ-2 Answer Date Recorded PHQ-2 Total Score (If total score is 3 or more points, staff should administer the PHQ-9) 0 08/17/2024 Comments Unknown Sex and Gender Information Value Date Recorded Sex Assigned at Not on file Legal Sex Female 1:53 AM PUMPER BREWERY Gender Identity Female 11/22/2020 12:52 PM PUMPER BREWERY Sexual Orientation Straight 11/22/2020 12 :52 PM PUMPER BREWERY documented as of this encounter Plan of Treatment Scheduled Orders Name Type Priority Associated Diagnoses Orde r Schedule Imaging SI Joint Injection Right ([id number]) Imaging Schedule Routine, Read Routine (OP Routine) Sciatica without lumbago, right Expected: 10/11/2024, Expires: 10/11/2025 documented as of this encounter Visit Diagnoses Diagnosis Sciatica without lumbago, right- Primary documented in this encounter Care Teams Residential Appliance Repair Technician Relationship Specialty Start Date End Date Uriel Walker MD [address] [place] [address] PCP - General Family Medicine 02/23/19 documented as of this encounter
--- OUTSIDE RECORDS SUMMARY | 2024-11-10 05:57 | XMS_ITS | Encounter Summary ---
Author Organization [facility] Address [address] [facility] [place] [address] Care Team Providers Care Edi Coordinator Name Role Phone Christine Peterson MD Primary Care Provider [phone] Reason for Referral * Consult, Test & Treat (Routine) - Closed Specialty Diagnoses / Procedures Referred By Geraldo t Referred To Contact Diagnoses Encounter for supervision of normal first in second trimester (HCC) Diet controlled gestational diabetes mellitus (GDM) in second trimester (HCC) Family history of congenital heart defect Procedures MATERNAL MEDICINE CONSULT Funmi Padilla MD [address] [place] [address] Referral ID Status Reason Start Date Expiration Date Visits Re quested Visits Authorized [id number] Closed 06/11/2021 06/11/2022 1 1 Reason for Visit * Reason Comments Ultrasound Consultation Diabetes Encounter Details Date Type Department Care Team (Latest Contact Info) Description 06/13/2021 2:25 PM CDT - 06/13/2021 11:59 PM CDT Hospital Encounter [facility] [address] [place] [address] Hannah Quesada MD [address] [address] Discharge Disposition: Home or Self Care Social [...] Sign Reading Time Taken Comments Blood Pressure 124/62 06/13/2021 3:44 PM CDT Pulse 78 06/13/2021 3:44 PM CDT Temperature - - Respiratory Rate - - Oxygen Saturation - - Inhaled Oxygen Concentration - - Weight 128.4 kg (283 lb) 06/13/2021 3:20 PM CDT Height - - Body Mass Index - [...] Take 162 mg by mouth once daily hydrOXYzine hcl (ATARAX) 25 MG tabletIndications:An xiety [...] twice daily or as directed. 100 strip 08/25/2018 05/14/2022 magnesium oxide (MAG-OX) 400 MG tabletIndications:fr equent headaches Take 1 (one) tablet by mouth once daily for 30 doses Reasons: frequent headaches 30 tablet 5 06/13/2021 07/13/2021 sertraline (ZOLOFT) 50 MG tabletIndications:de pression and anxiety Take 1 (one) tablet by mouth once daily for 30 doses Reasons: depression and anxiety 30 tablet 5 06/13/2021 07/13/2021 documented as of this encounter Progress Notes * Jerrica Petersen RN - 06/13/2021 5:53 PM CDT Brandie Torres is a 20 year old 30w2d Estimated Date of Delivery: 08/20/21 Patient seen today for Initial Diabetes Self Management Education (DSME) DSME content and documentation follows. GDMA1; per patient-stopped checking blood sugar for 5 weeks; resumed yesterday. 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 _X__ Increasing insulin needs during _X__ Importance and rationale of euglycemia in _X__ Monitoring before breakfast, 1 hours after each meal and prn. Target blood sugars fasting and 1 hour after eating __X__Patient returned demonstration of glucometer use. Has reli-on meter; states it has blue tooth/rodney. Will send blood sugars to Evan email site. __X__ Sharps disposal _X__ Hyperglycemia and hypoglycemia causes, symptoms, precautions [...] or cereal at first meal of day ____ _Hyperglycemia Prevention, symptoms, treatment Reporting of high blood glucose levels to office/physician Hypoglycemia Prevention, symptoms, treatment Reporting of low blood glucose levels to office/physician Sick day care Ketosis prevention Medication - overview if needed will expand education ___ _ Insulin: type and current dose, timing ____ Vial/syringe ____ Return demonstration ____ Insulin pen ____ Return demonstration ____ Injection site and rotation ____ Storage and handling of insulin ____ Sharps disposal ___ Exercise benefits, guidelines and precautions. Instructed to begin 30 minutes walking daily if not contraindicated ____ kick counts as advised ____ Breast feeding ____ Post- care and testing at 4-12 weeks after delivery, vigorous risk factor reduction after delivery to prevent or delay onset of diabetes __X___Encouraged to schedule eye exam re: c/o blurred vision Receptive to teaching: yes Understanding of instructions: yes Plan: Test blood glucose fasting and 1 hour after each meal. Keep detailed records of blood glucose, food and exercise. Stressed the importance of bringing meter and logs to each appointment. [facility] appointment [facility] in 1-2 weeks. Provided Diabetes and handouts, blood sugar/food/activity log sheets shared via office contact number as well as CDE's email address provided. Instructed to call/email if any problems obtaining glucometer supplies, medications or adhering to diabetes treatment plan. Ongoing follow up to reinforce and expand DSME. Instructed to call if BG are over or under targets. Provided [email or web address] email address to report blood sugar/food logs when will not be in office that week or any issues or concerns related to diabetes. Emphasized need to call office to inquire if email received if have any issues with receiving a timely response that day. Answered patient's questions. Pt states understanding of instructions provided. Jerrica Petersen, MSN, RN, CDECS * Oksana Gonzalez RN - 06/13/2021 4:14 PM CDT [facility] requisition given to patient for CMP, Hgb A1c, UA and UC. Instructed on where and when to have labs work done, states understanding. Fitted for maternity belt and faxed. Oksana Gonzalez RN 06/13/2021 4:29 PM * Oksana Gonzalez RN - 06/13/2021 3:47 PM CDT Patient here for follow up visit with Tammy Shultz NP at 30w2d for GDM and FOB h/o hypoplastic left heart. Patient states she just started retaking medications (ASA & PNV) and checking blood sugars yesterday after not doing either for the past 5 weeks. Patient states her blood sugars yesterday were; FBS 92, after breakfast (eggs, toast, no butter) 157, did not take at lunch because she did n ot eat, then after dinner ([employer] & fries) was 140's. Patient states she was very depressed lately and doesn't know why, denies wanting to hurt herself or others. States she has not wanted to interact with others and is crying daily for no reason. Patient sates I just shut down and I don't know why . [place] Depression Scale given, total 17 noted. Patient states she did have a counselor in the past but has not reached out to anyone recently. 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 Patient states she had bloodwork done beginning of this week at her primary OB's office, states was a 1hr GCT. Patient reports positive movement. Denies cramping, contractions, bleeding, and leakage of fluid. Patient denies headache, epigastric pain and visual changes. VS per flowsheet. Please see note/letter per Tammy Shultz NP. Patient with significant other, both screened Negative for cough, SOB, fever. Both are wearing a mask and afebrile today upon entering the office. Oksana Gonzalez RN 06/13/2021 4:01 PM documented in this encounter H&P Notes * Marissa Shultz APRN-SNOW SHOVELER - 06/13/2021 3:51 PM CDT Images from the original note were not included. Dear Dr. Padilla , I had the pleasure of seeing your patient, Brandie Torres for consultation today. Maternal Medicine Consult Note Date of Consult: 06/13/2021 Physician Requesting Consult: Funmi Padilla MD Name: Brandie Torres Age: [age] year old Reason for requesting consultation: Brandie Torres is a 20 year [id number], female at 30w2d weeks gestation by Estimated Date of Delivery: 08/20/21. I have been asked by Dr. Padilla to consult for Gestational diabetes and Morbid obesity. HPI: Patient shares with me she stopped checking her glucoses for 6 weeks due to anxiety and depression. States she began checking again yesterday. Shares with me she had pre-diabetes that was controlled off and on with diet and exercise since 2016. She never took medications for diabetes. She alsoshares anxiety and depression were diagnoses in 2018 with psychiatry and she took Prozac at that time. She could not tell much of a difference, but she also did counseling. She is willing to considermedication for her mood. Denies current thoughts of harming herself. Reports anxiety and panic thatmakes her chest feel tight and short of breath. Denies this occurrence of SOB or chest tightness any other time outside of panic attack. Reports active movement. Discusses frequent tension headaches prior to , resolve with eating or Tylenol if needed. Denies scotomata or RUQ abdominal pain. No Known Allergies Past Medical History: Diagnosis Date ??? Anxiety treated with Prozac ??? Obesity 05/17/2011 Past Surgical History: Procedure Laterality Date ??? NEGATIVE SURGICAL HISTORY Social History Socioeconomic History ??? Marital status: Single Spouse name: Not on file ??? Number of children: Not on file ??? Years of education: Not on file ??? Highest education level: Not on file Occupational History ??? Not on file Tobacco Use ??? Smoking status: Never Smoker ??? Smokeless tobacco: Never Used Substance and Sexual Activity ??? Alcohol use: Not on file ??? Drug use: Not on file ??? Sexual activity: Not on file Other Topics Concern ??? Not on file Social History Narrative Parents are not together. Father, age 37 years, height 5 feet 6 inches, is involved with Brandie Torres's care. Brandie Torres resides with her mother, age 33 years, height 5 feet 6 in, OOM ~ 11 yr, maternal half-sister(s), age(s) 4 years, and stepfather, who are healthy. She will be enrolledin the 11th grade and has received satisfactory jacinto in her coursework. Social Determinants of Health Financial Resource Strain: ??? Difficulty of Paying Living Expenses: Food Insecurity: ??? Worried About Running Out of Food in the Last Year: ??? Ran Out of Food in the Last Year: Transportation Needs: ??? Lack of Transportation (Medical): ??? Lack of Transportation (Non-Medical): Physical Activity: ??? Days of Exercise per Week: ??? Minutes of Exercise per Session: Stress: ??? Feeling of Stress : Social Connections: ??? Frequency of Communication with Friends and Family: ??? Frequency of Social Gatherings with Friends and Family: ??? Attends Protestant Services: ??? Active Member of Clubs or Organizations: ??? Attends Club or Organization Meetings: ??? Marital Status: Intimate Partner Violence: ??? Fear of Current or Ex-Partner: ??? Emotionally Abused: ??? Physically Abused: ??? Sexually Abused: Family History Problem Relation Name Age of Onset ??? Diabetes Mother 15 Type 1 [dialysis dependent, Aug, 2018)] ??? Hypertension Mother during ??? Asthma Mother ??? Hypertension Father ??? Asthma Father ??? Depression Father depression/anxiety ??? Heart Failure Maternal Grandfather ??? Diabetes Maternal Grandfather ??? Diabetes Paternal Uncle diet control OB History Para Term AB Living 1 SAB TAB Ectopic Multiple Live Births # Outcome Date GA Lbr Glen/2nd Weight Sex Delivery Anes PTL Lv 1 Current Obstetric Comments Irregular menses. Denies STI history. Outpatient Medications Marked as Taking for the 06/13/21 encounter (Hospital Encounter) with [facility] ULTRASOUND 1 Medication Sig ??? acetaminophen (TYLENOL) 500 MG tablet Take 500 mg by mouth every 6 hours as needed for Fever orPain Maximum allowable Acetaminophen amount = 4 Grams (4000 mg) / 24 hours. Reasons: Pain ??? aspirin (ASPIRIN) 81 MG chew tablet Take 162 mg by mouth once daily ??? hydrOXYzine hcl (ATARAX) 25 MG tablet Take 1 (one) tablet by mouth 3 times daily as needed (anxiety) Reasons: Feeling Anxious ??? magnesium oxide (MAG-OX) 400 MG tablet Take 1 (one) tablet by mouth once daily for 30 doses Reasons: frequent headaches ??? Vit-Fe Fumarate-FA ( VITAMIN) 28-0.8 MG tablet Take 1 tablet by mouth once daily Reasons: ??? sertraline (ZOLOFT) 50 MG tablet Take 1 (one) tablet by mouth once daily for 30 doses Reasons: depression and anxiety Review of Systems: Constitutional: Negative for fevers Eyes: Negative for visual changes Ears, nose, mouth, and throat: Negative for Respiratory: Negative for persistent shortness of breath--experiences with anxiety attack Cardiovascular: Negative for chest pain, experiences chest tightness with anxiety Gastrointestinal: Occasional nausea and vomiting, denies RUQ abdominal pain Genital: Negative for abnormal vaginal discharge Urinary: See HPI Hematologic/lymphatic: Negative for vaginal bleeding Musculoskeletal: Negative for significant back pain Neurological: see HPI Behavioral/Psych: see HPI Endocrine: see HPI Integument: Denies skin changes Obstetric: movement appreciated, denies leakage of fluid or significant contractions Exam: BP 124/62 (BP SITE: LEFT ARM, BP POSITION: SITTING, BP CUFF SIZE: 11L) Pulse 78 Wt 283 lb (128.4 kg) Gen: no acute distress Mental: appropriate mood, behavior and speech Neck: no thyroid enlargement Chest: clear to auscultation, bilaterally Heart: regular rate and rhythm, no murmurs Abdomen: gravid, no epigastric tenderness, obese. FHT per ultrasound Trunk: no costovertebral angle tenderness Musculoskeletal: no bony point tenderness to palpation Extremities: trace pedal edema; negative Kate's sign, bilaterally. Skin: no rash observed US: (See detailed report) Impression: IUP at 30w2d Patient Active Problem List Diagnosis Date Noted ??? Morbid obesity 06/13/2021 Priority: Not Prioritized Pre BMI> 40. ??? Anxiety and depression 06/13/2021 Priority: Not Prioritized ??? Dysuria during in third trimester 06/13/2021 Priority: Not Prioritized ??? Chronic tension headaches 06/13/2021 Priority: Not Prioritized ??? Supervision of normal first 03/26/2021 Priority: Not Prioritized O Neg; AB: Neg, Immune, Rpr: NR, HIV: NR, Hbsag: NR H/h/p: 13.1 / 39.8 / 401 ??? pre-diabetes now gestational diabetes mellitus (GDM) 03/26/2021 Priority: Not Prioritized 1 hr GCT: 182 (02/21/21) 3 hr GTT: 99, 217, 206, 144 (02/23/21) SOGA is doing GDM nutritional counseling per PNR. ??? Family history of congenital heart defect 03/26/2021 FOB with hypoplastic left heart. RECOMMENDATIONS: pre-diabetes now gestational diabetes mellitus (GDM) -Patient reports history of pre-diabetes with HgA1c of 6.2% in 2019, and 5.8% during her in the second trimester, per chart review. -No 24 hour urine available. -Minimal glucose data as she just started checking glucoses again after stopping for 6 weeks due toanxiety and depression. Reports desire to check and [...] delivery. Weekly BPP at 36 weeks given co- morbidity of obesity. Serial Ultrasound assessment of growth [...] ultrasound for estimating weight at term, with estimatedweights deviating by up to 1 lb in either direction from birthweights. I advised [facility] [facility] [employer] recommends delivery [...] sweetened beverages. 3. Close contact with our rn diabetes educator to optimize glycemic control on at [...] gestational hypertension and preeclampsia; symptoms reviewed with patientin detail today. 8. Typical delivery recommended at 39 weeks in uncomplicated diabetic ; further recommendations on timing of delivery will depend on glycemic control and surveillance. 9. After hours [facility] triage number provided to call with concerns. 10. Sent with labs today for repeat HgA1c and CMP. Family history of congenital heart defect FOB with history of hypoplastic left heart. Normal echocardiogram with [facility]. Morbid obesity Pre BMI> 40. Normotensive. Compliant with ASA [...] anxiety. 9. DVT warnings reviewed as well. Dysuria during in third trimester Dysuria present intermittently with 1+ urine protein, patient is normotensive. Reports UTI that was treated in the 2nd trimester. [facility] recommendations: 10. Sent with lab requisition to have UA and culture collected at local lab today. 11. Alert OB if worsening symptoms before results. Chronic tension headaches Present prior to . Resolve often with eating and Tylenol if needed. Normotensive. Needs updated eye exam with night time blindness. M recommendations: 12. Start magnesium supplement to help reduce frequency of headaches- RX provided. 13. Seek opthalmologic eye exam. 14. Alert OB promptly if headache unrelieved with intervention or go to L/D for evaluation in lieu of preeclampsia warnings. Anxiety and depression Diagnosed by psychiatry in 2018. Previously treated with Prozac, difficult to know if was helpful per patient. Also has done counseling. EPDS on 06/13: 17. Endorses active depression and anxiety without thoughts of self harm. [facility] recommendations: 15. I reviewed the risks to her for untreated mood disorder, especially in lieu of her diabetes and her stopping glucose checks and dietary modifications. We further reviewed risk of PTD and LBW. 16. The use of SSRIs in was discussed. [...] in insignificant amounts in the breast milk. 17. Recommend alerting Electronics Engineering Professor at delivery hospital and for infant to be observed for the first 48 hours of life. 18. RXs provided today for Sertraline 50mg and Hydroxyzine as needed for anxiety, 25mg. 19. Encouraged reconnecting with counselor and engaging in coping strategies: journaling, yoga, meditation, exercise. I recommend a follow-up consultation in 1-2 weeks. Brandie is to follow up with her primary Obstetrical care provider for her routine care and acute OB concerns, including delivery as clinically indicated. I spent 60 minutes [id number] with the patient; greater than 50 percent of the time was spent in discussion and counseling. Once again, we appreciate the opportunity to assist you in the care of Ms. Torres. If issues arise for which I can be of help before her next visit here, please contact me directly, or contact one of my partners if I am unavailable. She was seen in collaboration with Dr. Quesada and CDE today. She will continue seeing you for care. Sincerely, Marissa Shultz, STEAMER BLOCKER-SNOW SHOVELER 06/13/2021 5:25 PM documented in this encounter Plan of Treatment Not on file documented as of this encounter Procedures Procedure Name Priority Date/Time Associated Diagnosis Comments SONOGRAM - COMPLETE Routine 06/13/2021 2 :28 PM CDT Encounter for supervision of normal first in second trimester (HCC) Diet controlled gestational diabetes mellitus (GDM) in second trimester ([facility]) Family history of congenital heart defect documented in this encounter Results * SONOGRAM - COMPLETE (06/13/2021 2:28 PM CDT) Anatomical Region Laterality Modality Other 06/13/2021 2:28 PM CDT Narrative 06/13/2021 4:14 PM CDT ? [facility] Maternal Medicine ? [facility] Care Center ?PHONE: ??FAX: Pat. Name: ?JUAN RAMONBRANDIE REEDER. No: ?[id number] Study Date: ?? 06/13/2021 ??2:28pm , Age: ? 2000, 20 Pregnancies: ?? 1 Height: ? 64 in Weight: ? 289 lb LMP: ?2020 GA by LMP: ?30w2d GA by Base: ?? 30w2d ?? KYLEE: 08/20/2021 GA by US: ? 29w3d ?? KYLEE: 08/26/2021 GA Selected: ??30w2d (LMP) KYLEE: ?08/20/2021 Referring MD: Funmi Padilla MD Cutter Operator: ??Samia Renyolds RDMS CPT4: ? 81214 BMI: ?49.6 Hist/Ind: ? Complete Anatomy Screen ?FOB-HLHS ?GDM ?Class III Obesity (BMI 49) ?Normal ECHO-06/07/21 MEASUREMENTS & AGE ? GROWTH EVALUATION Measurement ??GA ? Range ? Srce %for GA Ratios ----- ---- ------- BPD ??7.2 cm 28w5d (81i0p-09m3a) Hadl BPD 5% FL/BPD 0.76 (0.71 - 0.87) HC ??27.1 cm 29w4d (60j1x-12b7z) Hadl HC ??5% FL/AC ??0.21 (0.20 - 0.24) AC ??26.4 cm 30w4d (61h7g-88p0x) Hadl AC ??53% HC/AC ??1.03 (0.97 - 1.16) FL ?? 5.4 cm 28w5d (75a7b-58v3w) Hadl FL ??5% CI ? 0.73 (0.70 - 0.86) HL ?? 4.8 cm 28w1d (36k6w-77y3r) Jose HL ??13% GA for sonogram 29w3d (75j8s-65m2q) ?? Weight Estimate: based on (BPD,HC,AC,FL) Avg ?Weight: 1445 gm (1234-1656gm) Had ? : 3lbs, 2oz ? Normal: 1617 gm (1212- 2021gm) Had ? Wt% ? 21% for 30w2d Heart Rate: 162 bpm Amniotic Fluid Index: 14.9cm (08.9-23.5) Q1: 2.7cm ??Q2: 3.4cm ??Q3: 3.1cm ??Q4: 5.6cm ?? EVAL, PLACENTA Presentation: cephalic Placenta: posterior Heart Rate: 162 bpm Amniotic Fluid Volume: normal Anatomy!Normal!Abnormal!Suboptimal!Prev. Seen!Comments Cranium ?! ?! ?! ?! ? x ?! Mdl (CSP/Thal! ?! ?! ?! ? x ?! Ventricles ?? ! ?! ?! ? x ?! ?! Choroid Plexu! ?! ?! ?! ? x ?! Cerebellum ?? ! ?! ?! ?! ? x ?! Cerebellar Ve! ?! ?! ?! ? x ?! Cisterna M. ??! ?! ?! ?! ? x ?! Nuchal Fold ??! ?! ?! ?! ? x ?! Orbits ? ! ?! ?! ?! ? x ?! Profile ?! ?! ?! ?! ? x ?! Nasal Bone ?? ! ?! ?! ?! ? x ?! Lip ?! ?? x ??! ?! ?! ?! Maxilla ?! ?! ?! ?! ? x ?! Mandible ? ! ?! ?! ?! ? x ?! Neck ? ! ?! ?! ?! ? x ?! Spine ?! ?! ?! ?! ? x ?! Lungs ?! ?? x ??! ?! ?! ?! 4 Chamber Hea! ?! ?! ? x ?! ?! LVOT ? ! ?! ?! ? x ?! ?! RVOT ? ! ?? x ??! ?! ?! ?! 3 Vessel View! ?? x ??! ?! ?! ?! 3 Vessel Trac! ?! ?! ? x ?! ?! Cross-over ?? ! ?! ?! ? x ?! ?! Ductal Arch ??! ?! ?! ? x ?! ?! Aortic Arch ??! ?! ?! ? x ?! ?! Caval View ?? ! ?! ?! ? x ?! ?! Situs ?! ?? x ??! ?! ?! ?! Diaphragm ?! ?! ?! ?! ? [...] ? ! ?! ?! ? x ?! ?!reevaluate ?leg:foot ?relationship External Pretty! ?! ?! ?! ? x ?! Placental Cor! ?! ?! ?! ? x ?! CLINICAL SUMMARY Study Number: 3 ?? A single fetus is seen in cephalic presentation. ??The measurements today are consistent with appropriate interval growth. ??The KYLEE is based on her LMP and a prior ultrasound examination. ??The amniotic fluid volume is within normal limits. ?? anatomy was limited by challenging maternal acoustic properties. ?? No major malformations were seen within the limitations of ultrasound. ?? IMPRESSION: Single, live, intrauterine at 30w2d ?? size is appropriate ?? Amniotic fluid volume: within normal limits ?? Incomplete survey ultrasound is limited in the ability to detect or exclude small, cardiac septal defects. RECOMMEND: Ultrasound in 4 weeks for to complete the anatomy and growth Thank you for allowing us the opportunity to care for your patient. ?? Hannah Quesada MD <Electronic Signature> ??06/13/2021 04:12pm Funmi Padilla MD [facility] ORDERABLES documented in this encounter Visit Diagnoses Diagnosis Encounter for supervision of normal first in second trimester (HCC) Supervision of normal first Diet controlled gestational diabetes mellitus (GDM) in second trimester (HCC) Family history of congenital heart defect Family history of congenital anomalies Diet controlled gestational diabetes mellitus (GDM) in third trimester (HCC) Obesity complicating , third trimester (HCC) Morbid (severe) obesity due to excess calories (HCC) Dysuria Depression affecting in third trimester, antepartum (HCC) Anxiety Anxiety state, unspecified 30 weeks gestation of (HCC) state, incidental * Assessment & Plan Note - Marissa Shultz APRN-CNP - 06/13/2021 5:13 PM CDT Associated Problem(s): Anxiety and depression Diagnosed by psychiatry in 2018. Previously treated with Prozac, difficult to know if was helpful per patient. Also has done counseling. EPDS on 06/13: 17. Endorses active depression and anxiety without thoughts of self harm. [facility] recommendations: 1. I reviewed the risks to her for untreated mood disorder, especially in lieu of her diabetes and her stopping glucose checks and dietary modifications. We further reviewed risk of PTD andLBW. 2. The use of SSRIs in was [...] in the breast milk. 3. Recommend alerting Electronics Engineering Professor at delivery hospital and for infant to be observed for the first48 hours of life. 4. RXs provided today for Sertraline 50mg and Hydroxyzine as needed for anxiety, 25mg. 5. Encouraged reconnecting with counselor and engaging in coping strategies: journaling, yoga, meditation, exercise. * Assessment & Plan Note - Marissa Shultz APRN-CNP - 06/13/2021 5:00 PM CDT Associated Problem(s): Chronic tension headaches Present prior to . Resolve often with eating and Tylenol if needed. Normotensive. Needs updated eye exam with night time blindness. [facility] recommendations: 1. Start magnesium supplement to help reduce frequency of headaches- RX provided. 2. Seek opthalmologic eye exam. 3. Alert OB promptly if headache unrelieved with intervention or go to L/D for evaluation in lieu of preeclampsia warnings. * Assessment & Plan Note - Marissa Shultz APRN-CNP - 06/13/2021 4:59 PM CDT Associated Problem(s): Dysuria during in third trimester (HCC) (Resolved 04/30/2022) Dysuria present intermittently with 1+ urine protein, patient is normotensive. Reports UTI that was treated in the 2nd trimester. MFM recommendations: 1. Sent with lab requisition to have UA and culture collected at local lab today. 2. Alert OB if worsening symptoms before results. * Assessment & Plan Note - Marissa Shultz APRN-CNP - 06/13/2021 4:51 PM CDT Associated Problem(s): Morbid obesity (HCC) Pre BMI> 40. Normotensive. Compliant with ASA prophylaxis Weight loss noted in the MF recommendations: 1. Limit weight gain to 0-15 [...] anxiety. 9. DVT warnings reviewed as well. * Assessment & Plan Note - Marissa Shultz APRN-CNP - 06/13/2021 4:49 PM CDT Associated Problem(s): Family history of congenital heart defect FOB with history of hypoplastic left heart. Normal echocardiogram with [facility]. * Assessment & Plan Note - Marissa Shultz APRN-CNP - 06/13/2021 3:41 PM CDT Associated Problem(s): pre-diabetes now gestational diabetes mellitus (GDM) -Patient reports history of pre-diabetes with HgA1c of 6.2% in 2019, and 5.8% during her in the second trimester, per chart review. -No 24 hour urine available. -Minimal glucose data as she just started checking glucoses again after stopping for 6 weeks due toanxiety and depression. Reports desire to check and [...] delivery. Weekly BPP at 36 weeks given co- morbidity of obesity. Serial Ultrasound assessment of growth [...] ultrasound for estimating weight at term, with estimatedweights deviating by up to 1 lb in either direction from birthweights. I advised [facility] that [facility] [employer] [facility] [employer] recommends delivery [...] sweetened beverages. 3. Close contact with our rn diabetes educator to optimize glycemic control on at [...] gestational hypertension and preeclampsia; symptoms reviewed with patientin detail today. 8. Typical delivery recommended at 39 weeks in uncomplicated diabetic ; further recommendations on timing of delivery will depend on glycemic control and surveillance. 9. After hours [facility] triage number provided to call with concerns. 10. Sent with labs today for repeat HgA1c and CMP. documented in this encounter Care Teams Edi Coordinator Relationship Specialty Start Date End Date Christine Peterson MD [address] [id number] PCP - General Pediatrics 07/29/18 documented as of this encounter
--- OUTSIDE RECORDS SUMMARY | 2024-11-10 05:57 | XMS_ITS | Encounter Summary ---
Author Organization [facility] Address [address] [facility] [place] [address] Care Team Providers Care Head Sawyer Automatic Name Role Phone Christine Peterson MD Primary Care Provider [phone] Reason for Referral * Consult, Test & Treat (Routine) - Closed Specialty Diagnoses / Procedures Referred By Contac t Referred To Contact Diagnoses Diet controlled gestational diabetes mellitus (GDM) in third trimester (HCC) Family history of congenital heart defect Procedures MATERNAL MEDICINE CONSULT Funmi Padilla MD [address] [place] [address] Referral ID Status Reason Start Date Expiration Date Visits Re quested Visits Authorized [id number] Closed 06/22/2021 06/22/2022 1 1 Reason for Visit * Reason Comments Consultation Diabetes FAD NST Encounter Details Date Type Department Care Team (Latest Contact Info) Description 06/27/2021 1:00 PM CDT - 06/27/2021 11:59 PM CDT Hospital Encounter [facility] [address] [place] [address] Reed Peguero MD [address] [place] [address] Discharge Disposition: Home or Self Care Social [...] Sign Reading Time Taken Comments Blood Pressure 128/86 06/27/2021 2:09 PM CDT man ual cuff Pulse 100 06/27/2021 2:08 PM CDT Temperature - - Respiratory Rate - - Oxygen Saturation - - Inhaled Oxygen Concentration - - Weight 127.5 kg (281 lb) 06/27/2021 2:08 PM CDT Height - - Body Mass [...] once daily 100 Each 2 06/27/2021 04/18/2022 magnesium oxide (MAG-OX) 400 MG tabletIndications:fr equent headaches Take 1 (one) tablet by mouth once daily for 30 doses Reasons: frequent headaches 30 tablet 5 06/13/2021 07/13/2021 sertraline (ZOLOFT) 50 MG tabletIndications:de pression and anxiety Take 1 (one) tablet by mouth once daily for 30 doses Reasons: depression and anxiety 30 tablet 5 06/13/2021 07/13/2021 documented as of this encounter Progress Notes * Marissa Shultz APRN-CNP - 06/27/2021 5:17 PM CDT OUTPATIENT TESTING FORM Maternal- Medicine Outpatient Testing Name: Brandie Torres Date of : 2000 Today's Date: 06/27/2021 MATERNAL OBJECTIVE FINDINGS: , Pulse: 100, , BP: 128/86 (manual cuff) NST Indication(s): Gestational hypertension OBJECTIVE FINDINGS: Movement: Present Monitoring Mode: External Baseline: 135 BPM Variability: Moderate Decelerations: None Accelerations: Yes Uterine Irritability: No Contractions: Not present INTERPRETATION: I have reviewed the NST strip and the data in this note. My interpretation is reactive RECOMMENDATION: Continue testing as previously ordered, begin twice weekly NST and weeklyBPP. Encouraged twice daily kick counts. AFRICA Kwok * Oksana Gonzalez RN - 06/27/2021 3:04 PM CDT Patient here for follow up visit with Tammy Shultz NP and JOSE at 32w2d for GDM and history of FOB w hypoplastic left heart. Patient states she is no longer seeing Dr. Padilla and started seeing Dr. Farmer yesterday. Dr. Farmer's office notified new order would be needed for consult. Message left. Patient states she has not started any of the meds she was given Rx for last visit because she was confused as to why she had 2 meds for anxiety. Instructed patient that the Zoloft was for every day useand would take approximately 2 weeks to be effective. VIstaril was for PRN use and to take when anxiety was increased. Instructed patient magnesium was for everyday use to help prevent headaches. Patient states understanding. Patient states she has not been checking blood sugars for past 2 weeks. States she started but then her mother 2 weeks ago. She states she had good intentions but with her recent loss she states she just didn't do them. Also has not been taking other medications previously prescribed. Patient states she did not get labs drawn from previous visit, states she does still have requisition. Patient states she did receive maternity belt and has worn once. States was effective but discontinued wearing because the back was chafing. FHR dopplered at 146 bpm. Patient reports positive movement. Denies cramping, contractions, bleeding, and leakage of fluid. Patient denies visual changes. Does state she has occasional epigastric pain and headaches. Took tylenol 2-3 days ago for a headache and did get relief. VS per flowsheet. Please see note/letter per Tammy Shultz NP. Pateint placed on monitor for NST, no contractions noted. FHR baseline 130 with accelerations noted. BP cuff given with instructions on use, states understanding. Instructed patient to report to L&D due to symptoms and inability to maintain proper blood sugar levels. Dr. Farmer's office called and message left regarding patient's office visit yesterday and any possible lab work and BP's. Patient screened Negative for cough, SOB, fever. Patient is wearing a mask and afebrile today upon entering the office. Oksana Gonzalez RN 06/27/2021 3:19 PM * Zee Burns RN - 06/27/2021 2:01 PM CDT Diabetes Self Management Education & Support [facility] Maternal [facility], [place] Email: [email or web address] Brandie Torres is a 20 year old 32w2d Estimated Date of Delivery: 08/20/21 Indication: Prediabetes / diabetes Today pt brings logs from 06/12 only. Pt's mother passed unexpectedly 2 weeks ago. She reports total upheaval of her life/living situation since then. Has skipped meals. Has not been checking herglucose levels. Does have her father and FOB as support. Is looking forward to move into her own home next week andexpects chaos to diminish. Maternal Labs and Anthropomorphic Assessment Recent Labs Component Name 08/25/18 0932 05/22/16 0921 HGBA1C 6.7* 5.8 Monitoring and Glycemic Control Using Long Tail. Prefers to record results on paper logs. Tested Fasting range: 90 to 92 mg/dl; 0/4 elevations PP Bfast range: 156 to 167 mg/dl; 2/2 elevations AC Lunch on day didn't eat : 67 PP Dinner range: 96 to 183 mg/dl; 1/2 elevations DM Medications/Insulin Adjustments today per review with GRAYSON Turner Insulin Breakfast Lunch Dinner HS Basaglar/Lantus 12 (0) Reviewed: Insulin injection technique, insulin action, storage, disposal. Indication for Glucagon/Baqsimi Meal Planning: Denies food insecurity contributing to her not eating on regular basis. Explored with pt easy options at hand to assure 3 small meals/snacks. Reviewed importance of hydration. Pt relates that she is attentive to water consumption. Acute Complications Reviewed recognition/prevention/tx hyperglycemia/hypoglycemia; warning levels and when to call Provided with 2 sample packets of glucose tabls to carry as treatment for hypoglycemia Finding Resources / Support The Mom's Line: [phone] Plan: Email logs at least weekly to [email or web address] to allow assessment of glycemic control and optimal adjustment of treatment plan. Provide details regarding content of meals, timing of tests, activity, health. Contact office if reply not received within 24 hr period. Contact [facility] for emergencies: [phone]. Engagement: 90 % Understandin % documented in this encounter Consult Notes * Marissa Shultz APRN-HOMERO - 06/27/2021 4:08 PM CDTAssociated Order(s): AMB CONSULT TO MATERNAL MEDICNE Images from the original note were not included. Dear Dr. Farmer, I had the pleasure of seeing your patient, Brandie Torres for consultation today. Maternal Medicine Consultation visit Subjective: Brandie Torres is a at 32w2d here for follow up consultation visit, at the request of Dr. Farmer, for the following issue: diabetes and obesity . HPI: Since the last visit she notes significant stress and grief as her mother . Shares she has not been checking her blood sugar due to that loss. She also has been experiencing blurry vision. Reports headaches continue, but they have not worsened compared to her baseline headaches. Describes as frontal and tension-like, that are mostly improved with Tylenol. She has noticed swelling in the last couple of days as well. She denies any RUQ abdominal pain, nausea, vomiting. Reports active movement. She tells me she is ready to try harder with her diabetes and will check glucoses. Endorses the week she checked blood sugars two weeks ago, most of them were elevated. She did not start any of the prescribed medications last visit, as she was confused on their indications. Brandie's is complicated by: Patient Active Problem List: Supervision of normal first pre-diabetes now gestational diabetes mellitus (GDM) Family history of congenital heart defect Morbid obesity Anxiety and depression Dysuria during in third trimester Chronic tension headaches Her past history is significant for: Past Medical History: Diagnosis Date ??? Anxiety treated with Prozac ??? Obesity 05/17/2011 Past Surgical History: Procedure Laterality Date ??? NEGATIVE SURGICAL HISTORY Social History Tobacco Use ??? Smoking status: Never Smoker ??? Smokeless tobacco: Never Used Substance Use Topics ??? Alcohol use: Not on file ??? Drug use: Not on file Review of systems: Constitutional: Negative for fevers Eyes: see HPI Ears, nose, mouth, and throat: Negative for Respiratory: Negative for shortness of breath Cardiovascular: Negative for chest pain Gastrointestinal: Negative for nausea, vomiting, RUQ pain Genital: Negative for abnormal vaginal discharge Urinary: Negative for dysuria, occasional urgency Hematologic/lymphatic: Negative for vaginal bleeding Musculoskeletal: Negative for significant back pain Neurological: Negative for frequent headaches Behavioral/Psych: Negative for poor mood due to the concerns Endocrine: Negative for Integument: Denies skin changes Obstetric: movement appreciated, denies leakage of fluid or significant contractions Objective Physical Examination: Initial blood pressure: 145/76 VS: BP 128/86 (BP SITE: RIGHT ARM, BP POSITION: SITTING, BP CUFF SIZE: 11) Pulse 100 Wt 281 lb (127.5 kg) See flowsheet Gen: no acute distress Mental: appropriate mood, behavior and speech Chest: no increased work of breathing Abdomen: gravid, no epigastric tenderness, obese. FHT per reactive NST Trunk: no costovertebral angle tenderness Musculoskeletal: no bony point tenderness to palpation Extremities: 1+ pedal edema; negative Kate's sign, bilaterally Skin: no rash observed Current Outpatient Medications Medication Sig ??? acetaminophen (TYLENOL) 500 MG tablet Take 500 mg by mouth every 6 hours as needed for Fever orPain Maximum allowable Acetaminophen amount = 4 Grams (4000 mg) / 24 hours. Reasons: Pain ??? aspirin (ASPIRIN) 81 MG chew tablet Take 162 mg by mouth once daily ??? blood glucose (IVAN CONTOUR NEXT TEST) test strip Use to test blood sugar twice daily or as directed. ??? Glucagon, rDNA, (GLUCAGON EMERGENCY) 1 MG KIT Inject 1 (one) mg subcutaneously as needed ??? hydrOXYzine hcl (ATARAX) 25 MG tablet Take 1 (one) tablet by mouth 3 times daily as needed (anxiety) Reasons: Feeling Anxious (Patient not taking: Reported on 06/27/2021) ??? insulin glargine (LANTUS) pen Inject 12 (twelve) Units to 30 (thirty) Units subcutaneously at bedtime Start with 12 units. Increase as directed. ??? Insulin Pen Needle 32G X 4 MM MISC Use 1 Each once daily ??? Lancets (MICROLET) MISC Use 5-9 Each once daily Use to check blood sugar twice daily or as directed. ??? magnesium oxide (MAG-OX) 400 MG tablet Take 1 (one) tablet by mouth once daily for 30 doses Reasons: frequent headaches ??? Vit-Fe Fumarate-FA ( VITAMIN) 28-0.8 MG tablet Take 1 tablet by mouth once daily Reasons: ??? sertraline (ZOLOFT) 50 MG tablet Take 1 (one) tablet by mouth once daily for 30 doses Reasons: depression and anxiety (Patient not taking: Reported on 06/27/2021) No current facility-administered medications for this encounter. Ultrasound:(see detailed report) Glucose log scanned into media. Labs: Urine dipstick shows Alb/Glu/K/N/L Albumin: 1+ Glucose: Negative Urine Ketones: 80 mg/dL Assessment/Plan: 20 year old with IUP at 32w2d RECOMMENDATIONS: pre-diabetes now gestational diabetes mellitus (GDM) -Patient reports history of pre-diabetes with HgA1c of 6.2% in 2019, and 5.8% during her in the second trimester, per chart review. -No 24 hour urine available. -glucose log from 06/12-06/15 with hyperglycemia noted. -AGA growth and incomplete anatomy, two weeks ago. -Normal echocardiogram. -reassuring NST today. ?? MFM recommendations: 1. Perform 4 times daily blood glucose measurements, goals reviewed. 2. CDE education today with dietary instruction to follow up initial education. 3. Recommend beginning Insulin based on hyperglycemia: Lantus 12 units at night. 4. Urged Brandie to eat 3 meals a day and have snacks, discussed risk of hypoglycemia without eating while on insuline. Reviewed treatment of hypoglycemia as well. Emergency number reviewed to for [facility]. 5. Discussed risks to her including stillbirth if not treating her diabetes. 6. Close contact with our telehealth nurse educator to optimize glycemic control on at least once weekly basis 7. Comprehensive scan, followed by serial ultrasounds for growth every 4 weeks. 8. surveillance: Twice weekly NST starting now with weekly BPP. 9. Twice daily kick counts, seek care if not getting 10 movements in two hours. 10. Close surveillance for gestational hypertension and preeclampsia; symptoms reviewed with patient in detail today. 11. Typical delivery recommended at 39 weeks in uncomplicated diabetic ; further recommendations on timing of delivery will depend on glycemic control and surveillance. 12. After hours [facility] triage number provided to call with concerns. ? Family history of congenital heart defect FOB with history of hypoplastic left heart. Normal echocardiogram with [facility]. ?? Morbid obesity Pre BMI> 40. Mild range blood pressure today with symptoms of preeclampsia and proteinuria. Compliant with ASA prophylaxis Weight loss noted in the ?? MFM recommendations: 1. Limit weight gain to 0-15 pounds. Active weight loss is not encouraged. 2. Sent to [facility] for further evaluation today for preeclampsia and ideally hydration for ketonuria. Msg left with primary Cotton Presser by nursing and myself regarding recommendation for further evaluation. 3. Reviewed healthy dietary choices today with patient in accordance to diabetes in the . 4. Serial growth ultrasounds. 5. Weekly testing driven by diabetes. 6. Close supervision for hypertensive disorders in . Counseled on precautions today. Set up with home blood pressure cuff and encouraged to bring log to visits. Alert primary OB if having BPs > or equal to 140/90, or seek evaluation. 7. kick counts twice daily. 8. Previously sent with lab to check TSH--reports family history of hypothyroid disease. 9. Instructed to seek medical evaluation for persistent SOB, chest pain, especially given patient is having physical anxiety. 10. DVT warnings reviewed as well. ?? Chronic tension headaches Present prior to . Resolve often with eating and Tylenol if needed. Needs updated eye exam with night time blindness. ?? MFM recommendations: 12. Educated on magnesium supplement sent to pharmacy previously to help reduce frequency of headaches. Encouraged to begin. 13. Seek opthalmologic eye exam. 14. Alert OB promptly if headache unrelieved with intervention or go to L/D for evaluation in lieu of preeclampsia warnings. ?? Anxiety and depression Diagnosed by psychiatry in 2018. Previously treated with Prozac, difficult to know if was helpful per patient. Also has done counseling. EPDS on 06/13: 17. Endorses active depression and anxiety without thoughts of self harm. Now active grief with loss ofmother. ?? MFM recommendations: 15. I reviewed the risks to her for untreated mood disorder, especially in lieu of her diabetes and her stopping glucose checks and dietary modifications. We further reviewed risk of PTD and LBW. 16. The use of SSRIs in was previously discussed. 17. Recommend alerting Packing Room Inspector at delivery hospital and for infant to be observed for the first 48 hours of life. 18. Discussed RXs and their indications provided at last visit for Sertraline 50mg and Hydroxyzine as needed for anxiety, 25mg. I encouraged her compliance. 19. Encouraged reconnecting with counselor especially now with recent loss of mother. ?? I recommend a follow-up consultation in 2 weeks, she is to return [place] for BPP/NST. Brandie is to follow up with her primary Obstetrical care provider for her routine care and acute OB concerns, including delivery as clinically indicated. Once again, we appreciate the opportunity to assist you in the care of Ms. Torres. If issues arise for which we can be of assistance, please contact our [facility] team directly through [facility]. She was seen incollaboration with Dr. Peguero. She will continue seeing you for care. Sincerely, AFRICA Kwok 06/27/2021 4:08 PM documented in this encounter Plan of Treatment Scheduled Orders Name Type Priority Associated Diagnoses Orde r Schedule NON-STRESS TEST MATRNL MED Routine Diet controlled gestational diabetes mellitus (GDM) in third trimester ([facility]) Family history of congenital heart defect Anxiety and depression Gestational hypertension, third trimester ([facility]) 1 Occurrences starting 06/27/2021 until 06/27/2022 documented as of this encounter Visit Diagnoses Diagnosis Diet controlled gestational diabetes mellitus (GDM) in third trimester (HCC)- Primary Encounter for supervision of normal first in second trimester ([facility]) Supervision of normal first Family history of congenital heart defect Family history of congenital anomalies Anxiety and depression Dysthymic disorder Gestational hypertension, third trimester (HCC) Insulin controlled gestational diabetes mellitus (GDM) in third trimester (HCC) Obesity complicating , third trimester ([facility]) Morbid (severe) obesity due to excess calories ([facility]) Depression affecting in third trimester, antepartum ([facility]) Anxiety Anxiety state, unspecified 32 weeks gestation of (HCC) state, incidental documented in this encounter Care Teams Head Sawyer Automatic Relationship Specialty Start Date End Date Christine Peterson MD [address] [place] [address] [place] [id number] PCP - General Pediatrics 07/29/18 documented as of this encounter
--- OUTSIDE RECORDS SUMMARY | 2024-11-10 05:57 | XMS_ITS | Clinical Summary ---
Author Organization [facility] Address [facility] [place] [address] [place] [address] Care Team Providers Care Rod Greaser Name Role Phone Uriel Walker MD Primary Care Provider [phone] Allergies No known active allergies Medications Glucagon (BAQSIMI ONE PACK) 3 MG/DOSE Powder 3 mg by Nasal route. 04/19/2022 Active BAQSIMI ONE PACK 3 MG/DOSE Powder 04/19/2022 Ac tive insulin detemir 100 UNIT/ML flextouch PEN Inject 14 units every night. 04/18/2022 Active sertraline 50 MG tablet Take 50 mg by mouth daily. Active Family History Medical History Relation Comments Asthma Father Diabetes Maternal Grandfather Diabetes Maternal Grandmother Asthma Mother Diabetes Mother Genitourinary () Mother Heart Mother Hypertension Mother Diabetes Paternal Grandfather Relation Status Comments Father Maternal Grandfather Maternal Grandmother Mother Paternal Grandfather Social History Tobacco Use Types Packs/Day Years Used Date Smoking Tobacco: Former Cigarettes Smokeless Tobacco: Never Alcohol Use Standard Drinks/Week Comments Not Currently 0 (1 standard drink = 0.6 oz pur e alcohol) Humiliation, Afraid, Rape, and Kick questionnair e Answer Date Recorded Within the last year, have y ou been afraid of your partner or ex-partner? No 04/26/2022 Within the last year, have y ou been humiliated or emotionally abused in other ways by your partner or ex-partner? No Within the last year, have y ou been kicked, hit, slapped, or otherwise physically hurt by your partner or ex-partner? No 04/26/2022 Within the last year, have y ou been raped or forced to have any kind of sexual activity by your partner or ex-partner? No 04/26/2022 Social Connection and Isolation Panel [NHANES] A nswer Date Recorded In a typical week, how many times do you talk on the phone with family, friends, or neighbors? Once a week 04/26/20 How often do you get togethe r with friends or relatives? Once a week 04/26/2022 How often do you attend chur ch or hoahaoism services? Never 04/26/2022 Do you belong to any clubs o r organizations such as spiritism groups, unions, fraternal or athletic groups, or school groups? No 04/26/2022 How often do you attend meet ings of the clubs or organizations you belong to? Never 04/26/2022 Are you , , di vorced, , never , or living with a partner? Living with partner 04/26/2022 AUDIT-C Answer Date Recorded Q1: How often do you have a drink containing alcohol? Never 04/26/2022 Q2: How many drinks containi ng alcohol do you have on a typical day when you are drinking? Patient does not drink Q3: How often do you have si x or more drinks on one occasion? Never 04/26/2022 Overall Financial Resource Strain (CARDIA) Answe r Date Recorded How hard is it for you to pa y for the very basics like food, housing, medical care, and heating? Not hard at all 04/26/2022 [facility] - Occupational Stress Questionnaire Answer Date Recorded Do you feel stress - tense, restless, nervous, or anxious, or unable to sleep at night because your mind is troubled all the time - these days? To some extent 04/26/2022 Exercise Vital Sign Answer Date Recorde d On average, how many days pe r week do you engage in moderate to strenuous exercise (like a brisk walk)? 7 days 04/26/2022 On average, how many minutes do you engage in exercise at this level? 120 min 04/26/2022 Hunger Vital Sign Answer Date Recorded Within the past 12 months, y ou worried that your food would run out before you got the money to buy more. Never true 04/26/20 22 Within the past 12 months, t he food you bought just didn't last and you didn't have money to get more. Never true 04/26/2022 PRAPARE - Transportation Answer Date Re corded In the past 12 months, has l ack of transportation kept you from medical appointments or from getting medications? No 04/04 In the past 12 months, has l ack of transportation kept you from meetings, work, or from getting things needed for daily living? Yes 04/26/2022 Housing Stability Vital Sign Answer Steve e Recorded In the last 12 months, was t here a time when you were not able to pay the mortgage or rent on time? No 04/26/2022 In the last 12 months, how many places have you lived? 3 04/26/2022 In the last 12 months, was t here a time when you did not have a steady place to sleep or slept in a residential (including now)? No 04/26/2022 Comments No Sex and Gender Information Value Date Recorded Sex Assigned at Female 04/26/2022 9:02 PM CDT Legal Sex Female 3:55 PM CDT Gender Identity Female 04/26/2022 9:02 PM CDT Sexual Orientation Straight 04/26/2022 9: 02 PM CDT Last Filed Vital Signs Vital Sign Reading Time Taken Comments Blood Pressure 133/70 04/26/2022 8:58 PM CDT Pulse 106 04/26/2022 8:58 PM CDT Temperature - - Respiratory Rate - - Oxygen Saturation - - Inhaled Oxygen Concentration - - Weight 129.3 kg (285 lb) 06/12/2021 3:00 PM CDT Height 164.5 cm (5' 4.75 ) 06/12/2021 3:00 PM CD T Body Mass Index 47.79 06/12/2021 3:00 PM CDT Plan of Treatment Health Maintenance Due Date Last Done Comments Cervical Cancer Screening Pap Smear (Age 21 to 29) Every 3 Years 2001 Cervical Cancer Screening 2001 Annual Physical 2004 Hepatitis C 2019 DTaP, Tdap and Td Vaccines (7 - Td or Tdap) 05/07/2023 05/07/2013, 02/06/2007, 05/26/2003, Additional history exists COVID-19 Vaccine (2023- season) 2024 Influenza Adult (#1) 2024 07/15/2019 Hepatitis B Vaccines Completed 08/30/2002, 2001, 2001 Pneumococcal Vaccine: Pediatrics (0 to 5 Years) and At-Risk Patients (6 to 64 Years) Aged Out 11/15/2002, 05/28/2002, 03/16/2002, Additional history exists No longer eligible based on patient's age to complete this topic HPV Vaccines Completed 04/23/2016, 05/07/2013 Meningococcal Vaccine Completed 06/10/2018, 013 RSV Immunizations Under 20 Months Aged Out No longer eligible based on patient's age to complete this topic Insurance [facility] Care Teams Rod Greaser Relationship Specialty Start Date End Date Uriel Walker MD [address] [place] [address] PCP - General INTERNAL MEDICINE 04/26/22
--- OUTSIDE RECORDS SUMMARY | 2024-11-10 05:57 | XMS_ITS | Encounter Summary ---
Author Organization [facility] Address [address] [place] [id number] Care Team Providers Care Materials Inspector Name Role Phone Uriel Walker MD Primary Care Provider [phone] Reason for Referral * Consultation (Routine) - Closed Specialty Diagnoses / Procedures Referred By Contac t Referred To Contact Pain Management Diagnoses Sciatica without lumbago, right Gerri Trevino NP [address] [place] [address] Phone: tel: fax: [facility] Pain Management at [address] [address] Phone: tel: fax: Referral ID Status Reason Start Date Expiration Date V isits Requested Visits Authorized [id number] Closed Specialty Services Required 08/17/2024 09/16/2025 1 1 Question Answer Please select the performing region: [facility] [[id number]] Please select the performing department: [facility] [[id number]] # of visits: 1 Comments Sciatica on R side with sever pain. ECT CONTROLS SPECIALIST Reason for Visit * Reason Comments Initial Consult Back Pain Hip Pain Leg Pain right * Consultation (Routine) - Closed Specialty Diagnoses / Procedures Referred By Contac t Referred To Contact Pain Management Diagnoses Sciatica without lumbago, right Gerri Trevino NP [address] [place] [address] Phone: tel: fax: [facility] Pain Management at [address] [address] Phone: tel: fax: Referral ID Status Reason Start Date Expiration Date V isits Requested Visits Authorized [id number] Closed Specialty Services Required 08/17/2024 09/16/2025 1 1 Encounter Details Date Type Department Care Team (Late st Contact Info) Description 10/11/2024 11:19 AM PROJECT CONTROLS SPECIALIST - 10/11/2024 11:59 PM PROJECT CONTROLS SPECIALIST Hospital Encounter [facility] [address] [place], [place] [id number] [place] [id number] [facility] [address] [place], [place] [id number] Sacroiliitis (HCC) (Primary Dx); Sciatica without lumbago, right Discharge Disposition: Discharge to home or self care Social History Tobacco Use Types Packs/Day Years Used Date Smoking Tobacco: Every Day E-cigarettes Smokeless Tobacco: Former Chew Tobacco Cessation:Ready to Q uit: Not Asked; Counseling Given: Not Answered Alcohol Use Standard Drinks/Week Comments Never 0 [...] on file Legal Sex Female 1:53 AM PROJECT CONTROLS SPECIALIST Gender Identity Female 11/22/2020 12:52 PM PROJECT CONTROLS SPECIALIST Sexual Orientation Straight 11/22/2020 12 :52 PM PROJECT CONTROLS SPECIALIST documented as of this encounter Last Filed Vital Signs Vital Sign Reading Time Taken Comments Blood Pressure 128/91 10/11/2024 12:00 PM PROJECT CONTROLS SPECIALIST Pulse 85 10/11/2024 12:00 PM PROJECT CONTROLS SPECIALIST Temperature - - Respiratory Rate 16 10/11/2024 12:0 0 PM PROJECT CONTROLS SPECIALIST Oxygen Saturation 100% 10/11/2024 12: 00 PM PROJECT CONTROLS SPECIALIST Inhaled Oxygen Concentration - - Weight 127.5 kg (281 lb 1.6 oz) 024 12:00 PM PROJECT CONTROLS SPECIALIST Height 165.1 cm (5' 5 ) 10/11/2024 12:0 0 PM PROJECT CONTROLS SPECIALIST Body Mass Index 46.78 10/11/2024 12:00 PM PROJECT CONTROLS SPECIALIST documented in this encounter Medications at Time of Discharge blood-glucose meter misc Use daily or as directed for monitoring of diabetes. 1 each 07/30/2023 cyclobenzaprine (FLEXERIL) 10 mg tablet Take 1 tablet (10 mg total) by mouth 3 (three) times a day 05/04/2024 lancets misc 1 each by other route 2 (two) times a day 200 each 3 07/30/2023 metFORMIN (GLUCOPHAGE) 500 mg tabletIndication s:Type 2 diabetes mellitus with hyperglycemia, without long-term current use of insulin (HCC) Take 1 tablet (500 mg total) by mouth 2 (two) times a day with meals 60 tablet 11 08/17/2024 traMADoL (ULTRAM) 50 mg tablet Take 1 tablet (50 mg total) by mouth daily 05/04/2024 documented as of this encounter Discharge Disposition Disposition Code Departure Means Destination Discharge to home or self care documented in this encounter Progress Notes * Sanket Das MD - 10/11/2024 11:30 AM CST Patient Name: Brandie Torres : 2000 Today's Date: 10/11/2024 PCP: Uriel Walker MD Referring: Uriel Walker MD Chief Complaint Patient presents with Initial Consult Back Pain Hip Pain Leg Pain right HPI: Brandie is here for initial consult, referred by Dr. Walker. She reports constant right lower backand buttock pain that radiates down the right leg to the buttock. She describes the pain as aching,stabbing, and sharp, and rates it 5/10 today. Aggravating factors include standing, walking, bending over, climbing stairs, exercise, driving, lifting heavy weights, and prolonged sitting. Alleviating factors include lying down and rest. Brandie's pain initially began gradually about 2 years ago following a fall, but improved and then worsened about 4 months ago. Going forward, she is interested in SIJ. Previous treatments: Home exercise, applying ice & heat, physical therapy Prior medications utilized: [x] Tylenol [] Aspirin [x] Aleve/ Naproxen [x] Ibuprofen [] Meloxicam/ Mobic [] Diclofenac [] Celebrex [] Gabapentin [] Lyrica [] Cymbalta [] Amitriptyline [] Nortriptyline [] Topamax [] Tylenol #3/ #4 [x] Tramadol [] [place]/ Hydrocodone [x] Percocet/ Oxycodone [] Morphine [] Nucynta [] Oxycontin [] Hydromorphone/ Dilaudid [] Fentanyl [] [place] [] Butrans [] Steroids [] Flexeril [] Zanaflex/ Tizanidine [] Soma [] Skelaxin [] Other Other: No Known Allergies Past Medical History: Diagnosis Date Anxiety Diabetes mellitus (HCC) Fatty liver disease, nonalcoholic 05/03/2016 Hx of migraine headaches Hypertension Morbid obesity with BMI of 40.0-44.9, adult ([facility]) Seasonal allergies Patient Active Problem List Diagnosis Anxiety Morbid obesity with BMI of 50.0-59.9, adult ([facility]) Psychological factor affecting physical condition Snoring Encounter for screening for lipoid disorders Secondary oligomenorrhea Encounter for counseling regarding contraception Prediabetes Pain radiating to lower abdomen Colicky RUQ abdominal pain Type 2 diabetes mellitus with hyperglycemia, without long-term current use of insulin (HCC) Acute right-sided low back pain with right-sided sciatica Tendinitis, de Quervain's Sciatica without lumbago, right Sacroiliitis (HCC) Past Surgical History: Procedure Laterality Date TONSILECTOMY, ADENOIDECTOMY, BILATERAL MYRINGOTOMY AND TUBES Social History Tobacco Use Smoking status: Every Day Types: E-cigarettes Smokeless tobacco: Former Types: Chew Substance and Sexual Activity Drug use: Never Sexual activity: Not Currently Partners: Male control/protection: I.U.D. Alcohol Use: Not At Risk (04/26/2022) [facility] AUDIT-C Frequency of Alcohol Consumption: Never Average Number of Drinks: Patient does not drink Frequency of Binge Drinking: Never Family History Problem Relation Age of Onset Diabetes Mother Diabetes mellitus; Kidney failure Mother Heart attack Mother Early Mother Kidney disease Mother Clotting disorder Mother Hypertension Father Hypertension; Asthma Father HOME MEDICATIONS : blood glucose diagnostic (glucose blood) strip blood-glucose meter misc cyclobenzaprine (FLEXERIL) 10 mg tablet lancets misc metFORMIN (GLUCOPHAGE) 500 mg tablet semaglutide (Ozempic) 0.25 mg or 0.5 mg (2 mg/3 mL) pen injector injection traMADoL (ULTRAM) 50 mg tablet Review of Systems Review of systems completed, reviewed, and scanned into the chart. Physical Exam Vitals: 10/11/24 1200 BP: 128/91 BP Location: Right arm Patient Position: Sitting Pulse: 85 Resp: 16 SpO2: 100% Weight: 127.5 kg (281 lb 1.6 oz) Height: 165.1 cm (5' 5 ) Estimated body mass index is 46.78 kg/m?? as calculated from the following: Height as of this encounter: 165.1 cm (5' 5 ). Weight as of this encounter: 127.5 kg (281 lb 1.6 oz). Alert and oriented. Normal pupils. Normal respiratory effort. Abdomen not distended. CN 2-12 grossly intact. There is tenderness over right sacral sulcus, and positive thigh thrust, Mikey's, and compressiontest. No gross weakness Assessment Encounter Diagnoses Name Primary? Sciatica without lumbago, right Sacroiliitis (HCC) Yes -possible piriformis syndrome Medical Decision Making / Plan: VAS reviewed with score of: 5/10 PEG Scale Assessing Pain Intensity and Interference reviewed with score of: 9/10 Current Opioid Misuse Measure (COMM) reviewed with score of : 2 (> or equal to 9 is higher risk of opioid misuse) [place] and [place] Prescription Drug Monitoring reviewed and found appropriate. 10/11/2024 12:46 PM MODIFIED OSWESTRY LOW BACK PAIN QUESTIONNAIRE Section 1 - Pain Intensity 4 - Pain medication provides me with little relief from pain Section 2 - Personal Care (e.g., washing, dressing) 0 - I can take care of myself normally without causing increased pain Section 3 - Lifting 2 - Pain prevents me from lifting heavy weights off the floor, but I can manageif the weights are conveniently positioned (e.g., on a table) Section 4 - Walking 2 - Pain prevents me from walking more than 1/2 mile Section 5 - Sitting 2 - Pain prevents me from sitting for more than 1 hour Section 6 - Standing 2 - Pain prevents me from standing for more than 1 hour Section 7 - Sleeping 0 - My sleep is never disturbed by pain Section 8 - Social Life 3 - Pain prevents me from going out very often Section 9 - Traveling 3 - My pain restricts my travel over 1 hour Section 10 - Employment/Homemaking 2 - I can perform most of my homemaking/job duties, but pain prevents me from performing more physically stressful activities (e.g., lifting, vacuuming) Modified Oswestry Low Back Pain Score 20 Percentage 40 Plan: Brandie is here today with pain that based on history and physical is most consistent with a sacroiliitis. We personally reviewed results of MRI lumbar spine from June 2024 which shows some bnso-sd-ypbuhaof degenerative disc disease at L3-4 as well as L4-5. There is no apparent significant stenosis or nerve compression. This does seem to most likely be sacroiliac joint irritation so we will plan for right sacroiliac joint injection. If however there is not sufficient improvement from this piriformis syndrome could be another potential contributing factor which we will keep in mind. We arehopeful that we can help get Brandie feeling better soon! Documentation of Medical Necessity of Sacroiliac Joint Injection: Patient has moderate to severe low back pain primarily over SI joint between the upper level of theiliac crests and the gluteal fold - Yes Sacroiliac joint pain is greatly affecting quality of life and/or function: CASSANDRA -- 20/50 VAS -- 5/10 Has pain been present for more than 3 months - Yes Patient has not tolerated or has failed to respond to conservative care for at least 6 weeks -- Yes Conservative care attempted (duration and results) - has tried activity modification, rest, heat, ice, home exercise, Tylenol, anti-inflammatories, and physical therapy for >3 months - minimal relief Quality of life is affected by - increased pain with job duties and homemaking activities, unable to walk for more than 0.5 miles, increased pain with energetic social activities Low back pain is below L5 and without radiculopathy, or SI joint seems to be the most likely etiology of the pain - Yes At least three positive findings with provocative maneuvers are present - Yes (see exam) Clinical findings and/or imaging studies do NOT suggest any other obvious cause - Yes Imaging results: MRI Lumbar Spine WO Con 07/01/2024 Findings: No fracture or subluxation of the lumbar spine seen. Vertebral bodies maintain normal height and alignment. No suspicious progressive abnormality seen. At L1-L2, L2-L3, there is no disc bulge or herniation. No spinal canal stenosis or neural foraminalnarrowing at these levels. At L3-L4, there is central disc protrusion with mild effacement of the ventral thecal sac. There ismild facet arthropathy. Neural foramina are preserved. At L4-L5, there is central disc protrusion with annular fissure. There is moderate facet arthropathy. There is minimal central canal stenosis. Neural foramina are preserved. At L5-S1, there is no disc bulge or herniation. No spinal canal stenosis or neural foraminal narrowing. Paravertebral soft tissues are unremarkable. Goals of Treatment: Treat underlying pathology, improve pain control, improve function and quality of life. Use of Medications: The pain management contract has been previously reviewed. Questions solicited and answered, and the patient endorses a clear understanding. The patient understands random toxicology screening and prescription drug monitoring will be used. Instructed to take the smallest effective dose of opioid medication. Risks/side-effects of opioid medications, if utilizing, have been reviewed including: drowsiness, tolerance, addiction, abuse, constipation, nausea, vomiting, itching, dizziness, allergic reaction, respiratory depression, lack of benefit, endocrine abnormalities, low testosterone, sexual dysfunction, or . If utilizing, risks/side-effects of NSAID???s and potential for gastrointestinal bleeding, gastritis/esophagitis, and increased cardiac risk reviewed. Risks/side-effects of Gabapentin, Lyrica, and other potential sedative medications, if utilizing, have been reviewed including drowsiness, sedation, dizziness, fluid retention, weight gain, respiratory depression, and . If utilizing medications, the patient has been instructed to take every medication appropriately, storing and disposing properly, never sharing medication. The patient has been instructed on opioid medications, including but not limited to: do not combine with other medications such as benzodiazepines, alcohol, muscle relaxers, or other depressant medications. Patient instructed to avoid driving and operating heavy machinery. UDS screens will be performed to assess for medication, metabolites, other medications, and illicit substances. Results may be discussed at the next visit. Pre-hypertension/Hypertension: The patient has been informed that they may have pre-hypertension orhypertension based on a blood pressure reading in the office today. I recommend that the patient call their primary care provider or a physician of their choice this week to arrange follow up for further evaluation of possible pre-hypertension or hypertension. Tobacco Screening: Brandie Torres was screened for tobacco use. Patient is a tobacco user. Patient was briefly counseled about the risks of tobacco use and the benefits of stopping. Patient has been advised to quit,and if that fails, to discuss pharmacological options with their family doctor. Cigarette Packer: Cigarette Packer done with [employer]: variances and inaccuracies may occur. Dictations not proofread. Problem list pertinent to today???s visit reviewed, but entire patient problem list not reviewed today. This note is prepared by Cortney Girard, acting as a scribe for Sanket Das MD. I electronically signed this note at 1:24 PM on 10/11/24. Dictations not proofread. ECT CONTROLS SPECIALIST documented in this encounter Plan of Treatment Scheduled Referrals Name Type Priority Associated Diagnoses Order Schedule Ambulatory referral to Pain Management Outpatient Referral Routine Sciatica without lumbago, right Once for 1 Occurrences starting 10/11/2024 until 10/11/2024 documented as of this encounter Visit Diagnoses Diagnosis Sacroiliitis (HCC)- Primary Sacroiliitis, not elsewhere classified Sciatica without lumbago, right documented in this encounter Care Teams Materials Inspector Relationship Specialty Start Date End Date Uriel Walker MD [address] [place] [address] PCP - General Family Medicine 02/23/19 documented as of this encounter
--- OUTSIDE RECORDS SUMMARY | 2024-11-10 05:57 | XMS_ITS | Encounter Summary ---
Author Organization [facility] Address [address] [place] [address] Care Team Providers Care Curtain Roller Assembler Name Role Phone Omega Colon MD Primary Care Provider [phone] Reason for Visit * Reason Comments Evaluation elevated A1C Encounter Details Date Type Department Care Team (Latest Contact Info) Description 05/22/2016 9:00 AM CDT - 05/22/2016 11:59 PM CDT Hospital Encounter [facility] Pediatrics - Endocrinology [address] [place] [id number] Deandre Vázquez MD [address] [place] [id number] Discharge Disposition: Home or Self Care Social History Tobacco Use Types Packs/Day Years Used Date Smoking Tobacco: Never Alcohol Use Standard Drinks/Week Comments Not Asked 0 (1 standard drink = 0.6 oz pur e alcohol) Sex and Gender Information Value Date Recorded Sex Assigned at Not on file Gender Identity Not on file Sexual Orientation Not on file documented as of this encounter Last Filed Vital Signs Vital Sign Reading Time Taken Comments Blood Pressure 124/64 05/22/2016 9:13 AM CDT Pulse 80 05/22/2016 9:13 AM CDT Temperature - - Respiratory Rate 20 05/22/2016 9:13 AM CDT Oxygen Saturation - - Inhaled Oxygen Concentration - - Weight 117.1 kg (258 lb 2.5 oz) 05/22/2016 9:13 AM CDT Height 165.5 cm (5' 5.16 ) 05/22/2016 9:13 AM CD T Body Mass Index 42.75 05/22/2016 9:13 AM CDT Body Mass Index Percentile 99.94% 05/22/2016 9:1 3 AM CDT Growth Chart: [facility] (Girls, 2- 20 Years) documented in this encounter Discharge Instructions * Patient Instructions* Deandre Vázquez MD - 05/22/2016 9:17 AM CDT Hemoglobin A1c today 5.8% Encourage diet and exercise to facilitate weight loss See website: choosemyplate.gov for patient information handouts on healthy eating habits, meal planning, label reading, age appropriate foods, and portion size control. documented in this encounter Progress Notes * Deandre Vázquez MD - 05/22/2016 9:15 AM CDT Images from the original note were not included. Brandie Torres and her mother (contact telephone: [phone]) were seen in our outpatient Pediatric Endocrinology offices at [facility] in [place], [place] on 05/22/2016. She is a 15 y.o. 6 m.o. girl who is referred for evaluation of: Problem Elevated Hemoglobin A1c May 04, 2016 ([facility] in [place], [place]) hemoglobin A1c 6.2% (< 5.7), TSH 2.75 uIU/mL (0.465-4.68), free T4 0.96 ng/dL (0.78-2.19), ALT 24 U/L (9-52), cholesterol 160 mg/dL (200); triglyceride 117 mg/dL (< 150), HDL- cholesterol 45 mg/dL (> 35), LDL-cholesterol 81 mg/dL (< 130) Present Illness Brandie Torres is a now 15-1/2 year old girl with continued weight gain despite diet and exercise who was found to have the above noted screening blood test results. She is without unexplained constitutional symptoms, including weakness, fatigue, lethargy, fever, cough, vomiting, diarrhea, polyuria, polydipsia, or heat/cold intolerance. PAST MEDICAL HISTORY History Vitals ??? Weight: 4734 g (10 lb 7 oz) ??? Delivery Method: ??? Gestation Age: 42 wks ??? Hospital Name: [facility] ??? Hospital Location: [place], [place] complicated by maternal diabetes mellitus, managed with insulin, and hypertension. Past Medical History Diagnosis Date ??? Obesity 05/17/2011 Past Surgical History Procedure Laterality Date ??? Negative surgical history Family History Problem Relation Age of Onset ??? Diabetes Mother 15 Type 1 ??? Hypertension Father ??? Hypertension Mother during ??? Asthma Mother ??? Asthma Father ??? Heart Failure Maternal Grandfather ??? Diabetes Maternal Grandfather ??? Diabetes Paternal Uncle diet control History Social History Narrative Parents are not together. Father, age 37 years, height 5 feet 6 inches, is involved with Brandie Torres's care. Brandie Torres resides with her mother, age 33 years, height 5 feet 6 in, OOM ~ 11 yr, maternal half-sister(s), age(s) 4 years, and stepfather, who are healthy. She will be enrolledin the 9th grade and has received satisfactory jacinto in her coursework. Immunizations:UTD (not reviewed) No Known Allergies Regular Medications: No current outpatient prescriptions on file. REVIEW OF SYSTEMS General: weight gain Allergic/immunologic: no seasonal allergic symptoms Hematologic/lymphatic: no swollen nodes Eyes: wears prescription eye glasses for near vision ENT: no hearing or dental problems Skin: acne Respiratory: no cough, shortness of breath, or wheezing Cardiovascular: history of a heart murmur at , now resolved Gastrointestinal: some recurrent abdominal pains Genitourinary: no frequent thirst or urination; menarche ~ age 12 yr; menses occur every 1-2 months; duration ~ 2-7 days; + cramping throughout menses Endocrine: no fatigue or temperature intolerance Musculoskeletal: no joint pain, warmth or swelling. Psychiatric: no anxiety or depression Neurologic: occasional headaches Physical Examination: BP 124/64 mmHg Pulse 80 Resp 20 Ht 1.655 m (5' 5.16 ) Wt 117.1 kg (258 lb 2.5 oz) BMI 42.75 kg/m2 100%ile (Z=2.84) based on CDC 2-20 Years fnxshq-uwy-jew data using vitals from 05/22/2016. 74%ile (Z=0.64) based on CDC 2-20 Years ldzwpny-kdx-koc data using vitals from 05/22/2016. Body mass index is 42.75 kg/(m^2). 100%ile (Z=2.61) based on CDC 2-20 Years BMI-for-age data using vitals from 05/22/2016. No head circumference on file for this encounter. Body surface area is 2.32 meters squared. General: awake, alert, nondistressed-appearing, girl Head: normocephalic/atraumatic Eyes: Conjugate gaze; PERRLA with EOMI and sharp optic disc margins. Ears: Normally-shaped and positioned. Mouth: Hard/soft palates intact; dentition is not carious. 12-year molars have erupted Neck: supple without thyromegaly. Chest: symmetric and breath sounds are clear bilaterally. Heart: RRR without murmur. Abdomen: soft, nontender, without organomegaly. Skin: normal texture/turgor without birthmarks Sexual maturation: breasts T.S. V and pubic hair T.S. V Extremities: Straight and without deformity. Neurological exam: Symmetric and nonfocal. Laboratory data: Hospital Encounter on 05/22/16 GLUCOSE Result Value Ref Range Glucose 97 70-105 mg/dL CREATININE BLOOD Result Value Ref Range Creatinine 0.57 (L) 0.62-1.00 mg/dL eGFR MDRD mL/min/1.73m2 eGFR MDRD AFR AMR mL/min/1.73m2 HEMOGLOBIN A1C - POCT (IP) BEAKER Result Value Ref Range Hgb A1C POCT 5.8 3.4 - 6.1 % QC Verified Yes Yes Discussion: Brandie Torres is a 15 y.o. 6 m.o. girl referred for evaluation of a mildly elevatedhemoglobin A1c which was normal when repeated in our offices. She is without constitutional signs or symptoms which might suggest that she has diabetes mellitus. The remainder of her previous an current screening studies were normal. I reviewed at length the risks of developing diabetes mellitus given Brandie's obesity and family history of diabetes mellitus. I recommended mother monitor Brandie for the typical signs/symptoms of diabetes mellitus. Brandie and her parents met with our clinical glycerin supervisor to review home strategies (diet and exercise) to facilitate weight loss. I did not recommend a return appointment at this time. I would be happy to see Brandie as needed in the future. Assessment and Management Plan: Elevated hemoglobin A1c History of elevated hemoglobin A1c level in [...] office visit and they were in agreement. Follow Up: Return if symptoms worsen or fail to improve. Of the 30 minutes spent with Brandie, 15 were spent discussing evaluation & management/dietary & exercise counseling to maintain/facilate current weight loss (portion size control, decreasedietary concentrated sweets/fats; avoid skipped meals, limit TV/computer screen time; participationin daily physical activity) Family informed of laboratory test results on May 22, 2016 by Deandre Vázquez M.D. Deandre Vázquez MD [phone] CC: Omega Colon MD [address] [place] [address] Date: 05/22/2016 11:16 AM documented in this encounter Consult Notes * Marilyn Herring, ELISSA/LD - 05/22/2016 9:35 AM CDT Date: 05/22/2016 Diabetes Clinical Nutrition Assessment Brandie Torres is a 15 y.o. 6 m.o. female with history of obesity seen in clinic with parents for nutrition education to prevent the onset of T2 diabetes. Anthropometrics: Weight: 117.1 kg (258 lb 2.5 oz) 100%ile (Z=2.84) based on CDC 2-20 Years lcuwzz-vmr-sow data usingvitals from 05/22/2016. Height: 165.5 cm (5' 5.16 ) 74%ile (Z=0.64) based on CDC 2-20 Years wvxmixv-xqz-khc data using vitals from 05/22/2016. Body mass index is 42.75 kg/(m^2). 100%ile (Z=2.61) based on CDC 2-20 Years BMI-for-age data using vitals from 05/22/2016. Wt Readings from Last Encounters: 05/17/11 66.3 kg (146 lb 2.6 oz) (100 %*, Z = 2.89) Recent Labs Component Name 05/22/16 0921 HGBA1C 5.8 Medications: none Estimated Needs: KCAL: 1700 kcals/day (BELÉN - 1000) Food and nutrition related history: Mom states pt's A1c was 6.2% weeks ago in PCP office and since made numerous dietary changes including elimination of sugar sweetened beverages and sweet snacks which resulted in reduction in A1c. Nutrition profile reveals skipped breakfast, minimal intake of fresh fruit, vegetables, large portion of starches. Parents enforce dining at the kitchen table and mom states busy sport schedule result in frequent fast food dining. Brandie is in [employer] and currently practicing 2-3 days per week.Parents admit to personal struggle with sedentary lifestyle, dislike of many vegetables and grocerybill. Typical intake on most days: B: Skips breakfast during school year. Mom enforces daily meals. Current choices: cheerios, 2% milk L: lately: ramen noodles or with dad, ham and cheese sandwich with may on white bread D: pork or chicken, starchy and non starchy vegetables, loves mashed potatoes, pasta and water or diet green tea Fast food: double burger, tacos, nachos, fries and sugar sweetened beverages Nutrition Care Process (1) Nutrition Diagnostic Statement: (NC-3.3) Obesity related to: excessive calorie intake, undesirable food choices as evidenced by : diet history and BMI greater than 95th%tile Nutrition Diagnostic Statement Progress: New diagnostic statement established Nutrition Intervention: (E-2) Comprehensive Nutrition Education: Identified food sources of basic nutrients, its effect on blood glucose level and insulin resistance in BG control. Provided verbal and written information on My Plate information with emphasis on nutrient dense food choices and portion control using My Plate diagram. Instructed label reading highlighting following guidelines for fiber and fat: 0- 3 grams fat per 100calories; greater than 3 grams fiber per serving Discussed in detail concept of mindful eating Provided following handouts: My Plate, grocery list, menu ideas Nutrition Goal: Plate meals based on My Plate diagram: half plate with fresh fruit, fresh vegetables Include at least 3 different food groups with every meal Consume only zero calorie beverages, milk or yogurt with every meal Family to dine with minimal distractions, no TV while eating. Nutrition Goal: Biochemical data will be improved/normalized Nutrition Goal Timeframe: Ongoing Nutrition Goal Progress: Continue with current goal Marilyn Herring RD/HENNY 45 minutes have been spent in providing nutrition counseling and education. Family verbalized understanding of the plan and anticipate good compliance. Follow up with RD next clinic visit documented in this encounter Plan of Treatment Not on file documented as of this encounter Procedures Procedure Name Priority Date/Time Associated Diagnosis Comments LAB RESULTS ORDER 05/27/2016 10: 40 PM CDT HEMOGLOBIN A1C - POCT (IP) BEAKER Routine 05/22/2016 9:21 AM CDT Elevated hemoglobin A1c GLUCOSE Routine 05/22/2016 9:19 AM CDT Elevated hemoglobin A1c CREATININE BLOOD Routine 05/22/2016 9:19 AM CDT Elevated hemoglobin A1c documented in this encounter Results * LAB RESULTS ORDER (05/27/2016 10:40 PM CDT) Narrative 05/27/2016 10:40 PM CDT Ordered by an unspecified provider. Scanned Document LAB - THERAPEUTIC DR PICHARDO MONITORING ORDERABLES * HEMOGLOBIN A1C - POCT (IP) BEAKER (05/22/2016 9:21 AM CDT) Hemoglobin A1c POCT 5.8 3.4 - 6.1 % [facility] POCT TESTING QC Verified Yes Yes [facility] PO CT TESTING Blood specimen (specimen) BLOOD SPECIMEN / Unknown 05/22/2016 9:21 AM CDT Deandre Vázquez MD LAB - POINT OF CARE ORDERABLES Performing Organization Address City/[facility]/ZIP Co de Phone Number [facility] POCT TESTING [facility] [place], [place] [id number] [place] [address] * (ABNORMAL) CREATININE BLOOD (05/22/2016 9:19 AM CDT) Creatinine 0.57(L) 0.62 - 1.00 mg/dL 05/22/2016 10:00 AM CDT [facility] eGFR by MDRD mL/min/1. 73m2 05/22/2016 10:00 AM T [facility] Comment: eGFR calculations are not performed for children under 18 years old. eGFR by MDRD mL/min/1. 73m2 05/22/2016 10:00 AM T [facility] Comment: eGFR calculations are not performed for children under 18 years old. Blood BLOOD SPECIMEN / Unknown 05/22/2016 9:19 AM CDT 05/22/2016 9:39 AM CDT Deandre Vázquez MD LAB - CHEMISTRY [facility] Performing Organization Address City/[facility]/ZIP Co de Phone Number [facility] [address] [place] [address] * GLUCOSE (05/22/2016 9:19 AM CDT) Glucose 97 70 - 105 mg/dL 05/22/2016 10:00 AM CDT [facility] Blood BLOOD SPECIMEN / Unknown 05/22/2016 9:19 AM CDT 05/22/2016 9:39 AM CDT Deandre Vázquez MD LAB - CHEMISTRY [facility] Performing Organization Address [facility]/ZIP Co de Phone Number [facility] [address] [place] [phone] documented in this encounter Visit Diagnoses Diagnosis Elevated hemoglobin A1c- Primary Other abnormal blood chemistry * Assessment & Plan Note - Deandre Vázquez MD - 05/22/2016 11:07 AM CDTAssociated Problem(s): Elevated hemoglobin A1c (Resolved 03/26/2021) History of elevated hemoglobin A1c level in [...] office visit and they were in agreement. documented in this encounter Care Teams Curtain Roller Assembler Relationship Specialty Start Date End Date Omega Colon MD [address] [place] [phone] PCP - General Pediatrics 12/21/12 07/28/18 documented as of this encounter
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
--- OUTSIDE RECORDS SUMMARY | 2024-11-10 05:57 | XMS_ITS | Encounter Summary ---
Author Organization [facility] Address [address] [place] [address] Care Team Providers Care Exhibitions Curator Name Role Phone Christine Peterson MD Primary Care Provider Reason for Visit * Reason Comments FAD NST Encounter Details Date Type Department Care Team (Latest Contact Info) Description 07/06/2021 10:58 AM CDT - 07/06/2021 11:59 PM CDT Hospital Encounter [facility] Maternal & Care [address] [place] [address] Lacey Stiles MD [address] [address] Discharge Disposition: Home or Self Care Social [...] Sign Reading Time Taken Comments Blood Pressure 140/82 07/06/2021 11:45 AM CDT Pulse 94 07/06/2021 11:45 AM CDT Temperature - - Respiratory Rate [...] as of this encounter Progress Notes * Monica Rose - 07/06/2021 11:59 PM CDT I have completed this patient referral for Behavioral Health appointment. I will mail a notification to the address on file. * Antonieta Rose RN - 07/06/2021 11:48 AM CDT Name: Brandie Torres Date of : 2000 Today's Date: 07/06/2021 33w4d NST RESULTS (SAAVEDRA) OBJECTIVE FINDINGS , Pulse: 94, , BP: 140/82 NST Indication(s): Gestational diabetes Uterine Irritability: No Contractions: Not present OBJECTIVE FINDINGS Movement: Present Monitoring Mode: External Baseline: 130 BPM Variability: Moderate Decelerations: None Accelerations: Yes OTHER INFORMATION Comments: NST [id number] Antonieta Rose RN Associated attestation - Lacey Stiles MD - 07/06/2021 1:45 PM CDT Non-Stress Test (NST) Brandie Timmonsfaith [id number] Indications: GDM, on insulin & Gestational hypertension BP 140/82 Pulse 94 Interpretation: FHR baseline: 130-140 beats/minute, moderate variability, reactive, no decels Contractions: none Recommendations: Close maternal movement monitoring and twice weekly NSTs Lacey Stiles MD MPH documented in this encounter Plan of Treatment Scheduled Orders Name Type Priority Associated Diagnoses Orde r Schedule NON-STRESS TEST [facility] Routine Diet controlled gestational diabetes mellitus (GDM) in third trimester ([facility]) Family history of congenital heart defect Anxiety and depression Gestational hypertension, third trimester ([facility]) 1 Occurrences starting 07/06/2021 until 07/06/2021 documented as of this encounter Visit Diagnoses Diagnosis Encounter for supervision of normal first in third trimester ([facility]) Supervision of normal first Diet controlled gestational diabetes mellitus (GDM) in third trimester (HCC) Family history of congenital heart defect Family history of congenital anomalies Anxiety and depression Dysthymic disorder Gestational hypertension, third trimester (HCC) Insulin controlled gestational diabetes mellitus (GDM) in third trimester (HCC) Gestational (-induced) hypertension without significant proteinuria, third trimester (HCC) 33 weeks gestation of (HCC) state, incidental documented in this encounter Care Teams Exhibitions Curator Relationship Specialty Start Date End Date Christine Peterson MD [address] [id number] PCP - General Pediatrics 07/29/18 documented as of this encounter
--- OUTSIDE RECORDS SUMMARY | 2024-11-10 05:57 | XMS_ITS | Encounter Summary ---
Author Organization [facility] Address [address] [place] [address]. [place] [address] [place] [address] Care Team Providers Care Solution Analyst Name Role Phone Lydia Copeland NP Primary Care Provider [phone] Encounter Details Date Type Department Care Team (Latest Contact Info) Description 06/12/2021 4:21 PM CDT - 06/12/2021 5:10 PM CDT Hospital Encounter [facility] Labor & Delivery [address] [place], [place] [phone] Janny Spaulding MD [address] [place], [place] [phone] Discharge Disposition: Home or Self Care (Routine Discharge) Social History Tobacco Use Types Packs/Day Years Used Date Smoking Tobacco: Never Assessed Comments Unknown Sex and Gender Information Value Date Recorded Sex Assigned at Female 04/26/2022 9:02 PM CDT Legal Sex Female 3:55 PM CDT Gender Identity Female 04/26/2022 9:02 PM CDT Sexual Orientation Straight 04/26/2022 9: 02 PM CDT COVID-19 Exposure Response Date Recorded In the last month, have you been in contact with someone who was confirmed or suspected to have Coronavirus / COVID-19? No / Unsure 06/12/2021 3:06 PM CDT documented as of this encounter Last Filed Vital Signs Vital Sign Reading Time Taken Comments Blood Pressure - - Pulse - - Temperature - - Respiratory Rate - - Oxygen Saturation - - Inhaled Oxygen Concentration - - Weight 129.3 kg (285 lb) 06/12/2021 3:00 PM CDT Height 164.5 cm (5' 4.75 ) 06/12/2021 3:00 PM CD T Body Mass Index 47.79 06/12/2021 3:00 PM CDT documented in this encounter Nursing Notes * Becka Bourne RN - 06/12/2021 5:10 PM CDT Voicing no complaints after injection. Discharged to home * Shilpi Lee RN - 06/12/2021 4:22 PM CDTSummary: nursing Rhogam ok to give per Tigist in lab documented in this encounter Plan of Treatment Not on file documented as of this encounter Visit Diagnoses Not on filedocumented in this encounter Administered Medications Inactive Administered Medications - up to 3 most recent administrations Medication Order MAR Action Action Date Dose Rate Site rho D immune globulin (RHOPHYLAC) injection 300 mcg 300 mcg, Intramuscular, Once, 1 dose, On Fri06/12/21 at 1645, Prevention of rhesus (Rh) isoimmunization: Infuse at 2 mL per 5 to 15 seconds. Treatment of ITP: Infuse over 3 to 5 minutes. Given 06/12/2021 4:46 PM CDT 300 mcg Right Anterior Thigh documented in this encounter Active and Recently Administered Medications Times are shown in CDT. Scheduled Medication Order 06/10/2021 06/11/2021 06/12/2021 rho D immune globulin (RHOPHYLAC) injection 300 mcg (COMPLETED) 300 mcg, Intramuscular, Once, 1 dose, On Fri06/12/21 at 1645, Prevention of rhesus (Rh) isoimmunization: Infuse at 2 mL per 5 to 15 seconds. Treatment of ITP: Infuse over 3 to 5 minutes. 1646 (Given - Provid er: Becka Bourne RN) documented in this encounter Care Teams Solution Analyst Relationship Specialty Start Date End Date Lydia Copeland NP PCP - General NURSE PRACTITIONER 06/26/20 04/25/22 documented as of this encounter
--- OUTSIDE RECORDS SUMMARY | 2024-11-10 05:57 | XMS_ITS | Encounter Summary ---
Author Organization [facility] Address [address] [place] [address] Care Team Providers Care Intern Name Role Phone Uriel Walker MD Primary Care Provider [phone] Reason for Visit * Reason Onset Date Comments Medical Question/Miscellaneous 06/17/2024 Encounter Details Date Type Department Care Team (Late st Contact Info) Description 06/17/2024 Telephone [facility] [address] [place] [address] Uriel Walker MD [address] [place] [address] Medical Question/Miscellaneous Social History Tobacco Use Types Packs/Day Years [...] points, staff should administer the PHQ-9) 0 05/07/2024 Comments Unknown Sex and Gender Information Value Date Recorded Sex Assigned at Not on file Legal Sex Female 1:53 AM MACHINE TACK PULLER Gender Identity Female 11/22/2020 12:52 PM MACHINE TACK PULLER Sexual Orientation Straight 11/22/2020 12 :52 PM MACHINE TACK PULLER documented as of this encounter Miscellaneous Notes * Telephone Encounter - Ingrid Alvarez - 06/17/2024 10:06 AM CDT Call Back Caller???s Concern: Jo is requesting that they be advised once the authorization is approved so that the patient can be contacted and the test scheduled Does message need to be routed? Yes-Action Needed * Telephone Encounter - Lotus Bradley - 06/17/2024 10:00 AM CDT Faxed order to [place] * Telephone Encounter - Anaid Solano RN - 06/17/2024 9:54 AM CDT Called and spoke with patient. Notified patient that our office will need copies of her Physical Therapy evaluations for submission to her insurance carrier for authorization initiation (only document received was 05/07/2024 - Initial Evaluation and Plan of Care) and a copy of her updated insurancecard (ID number on the Primary Coverage listed does not match the last insurance card scanned in 10/06/2023). Patient verbalized understanding, but stated she does not have a car. Instructed patientto call [facility] and request they fax her Physical Therapy evaluations and upload a picture of the insurance card to a [employer] message. Patient verbalized understanding. * Telephone Encounter - Jeannette Diaz - 06/17/2024 8:15 AM CDT Medical Question/Miscellaneous Caller???s Concern: Patient would like the MRI Lumbar Spine ordered on 06-17-2024, changed, and ordered for [facility] in [place]. Please let patient know once this is changed. Does message need to be routed? Yes-Action Needed documented in this encounter Plan of Treatment Not on file documented as of this encounter Visit Diagnoses Not on filedocumented in this encounter Care Teams Intern Relationship Specialty Start Date End Date Uriel Walker MD [address] [place] [address] PCP - General Family Medicine 02/23/19 documented as of this encounter
--- OUTSIDE RECORDS SUMMARY | 2024-11-10 05:57 | XMS_ITS | Clinical Summary ---
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 Will continue with PT and monitoring. Tendinitis, de Quervain's 09/09/2023 Assessment & Plan (09/09/2023 11:06 AM RAIL ENGINEER): Pain and tenderness on the radial side of bilateral wrists. Instructed to use thumb spica splint at night and continue ibuprofen as needed. Type 2 diabetes mellitus wit h hyperglycemia, without long-term current use of insulin 06/06/2023 Assessment & Plan (08/17/2024 11:12 AM CDT): Ozempic and metformin refilled. Assessment & Plan (09/09/2023 11:17 AM RAIL ENGINEER): Continue checking glucose daily. Increase metformin to [...] 06/06/2023 Assessment & Plan (09/09/2023 10:45 AM RAIL ENGINEER): Improving after physical therapy. Encouraged continuing home [...] today. Would like to have completed at [facility]. Aware that RN will call for auth & call [facility] [place] to set up testing. Starting new job [...] not heard from us regarding CT authorization. Colicky RUQ abdominal pain 06/26/2020 Assessment & Plan (06/26/2020 12:51 PM CDT): CT abd/pelvis w/contrast ordered as well as labs. Would like to do hold & call today. Would like to have completed at [facility]. Aware that RN will call for auth & call [facility] [place] to set up testing. Starting new job [...] Plan (06/26/2020 12:50 PM CDT): 06/26/20 A1C=6.0% PN=958 HDL=44 CP=018 YZW=814 TC/HDL=3.8 Copy of results as well as [...] urine in office. Will check labs at [facility]. Assessment & Plan (02/17/2020 6:18 PM [...] 2 meals/day (school lunch & meal at [employer] nightly when working). Stressed dietary changes. Need [...] to deal with bullying. Paperwork completed. Will package pick up when she comes to have PPD read and to receive influenza vaccine. [facility] 02/16/2020 Assessment & [...] healthier, we can set up appointment with junior php developer/programmer developer. 3. Have an active lifestyle, strive for [...] whatever food is nearby when hungry. Declines junior php developer. Has seen 2x at [facility]. Will make f/u appt in 1 month. Elevated hemoglobin A1c 05/22/201606/04 Overview (02/23/2019): May 04, 2016 ([facility] in [place], [place]) hemoglobin A1c 6.2% (< 5.7), TSH 2.75 uIU/mL (0.465-4.68), free T4 0.96 ng/dL (0.78-2.19), ALT 24 U/L (9-52), cholesterol 160 mg/dL (200); triglyceride 117 mg/dL (< 150), HDL-cholesterol 45 mg/dL (> 35), LDL-cholesterol 81 mg/dL (< 130) May 22, 2018 - hemoglobin A1c 5.8% ([facility]) Jul, 2018 - elevated hemoglobin A1c at well childbirth and infant care teacher visit (results unavailable) Last Assessment [...] time. Need lifestyle changes: diet & activity. Encounters Date Type Department Care Team Description 11/04/2024 Telephone [facility] [address] [place] [address] Sanket Das MD 10/18/2024 Telephone [facility] [address] [phone] Uriel Walker MD Prior Authorization (Ozempic) 10/11/2024 11:19 AM RAIL ENGINEER - 10/11/2024 11:59 PM RAIL ENGINEER Hospital Encounter [facility] [address] [place] [address] Sanket Das MD Sacroiliitis (HCC) (Primary Dx); Sciatica without lumbago, right Discharge Disposition: Discharge to home or self care 10/11/2024 Orders Only [facility] [address] [place] [address] Sanket Das MD Sciatica without lumbago, right (Primary Dx) 08/17/2024 11:00 AM CDT Telemedicine [facility] [address] [phone] Gerri Trevino NP Sciatica without lumbago, right (Primary Dx); Type 2 diabetes mellitus with hyperglycemia, without long-term current use of insulin (HCC) 08/16/2024 Nurse Triage [facility] [address] [phone] Uriel Walker MD from Last 3 Months Immunizations Name Administration Dates Next Due DTaP [...] Conjugate, Unspecified 11/03,05/28/2002,03/16/2002,01/11 Tdap 05/25/2022,08/03/2021,05/07/2013 Varicella 02/14/2003 Surgical History Surgery Date Site/Laterality Comments TONSILECTOMY, ADENOIDECTOMY, BILATERAL MYRINGOTOMY AND TUBES Medical History Medical History Date Comments Fatty liver disease, nonalcoholic 05/03/2016 Seasonal allergies Hx of migraine headaches Morbid obesity with BMI of 40.0-44.9, adult (HCC ) Anxiety Diabetes mellitus (HCC) Hypertension Family History Medical History Relation Name Comments Asthma Father Kevan Torres Hypertension Father Kevan Torres Hypertension; Clotting disorder Mother Brandi Wilder Diabetes Mother Brandi Wilder Diabetes melli tus; Early Mother Brandi Wilder Heart attack Mother Brandi Wilder Kidney disease Mother Brandi Wilder Kidney failure Mother Brandi Wilder Relation Name Status Comments Father Kevan Torres Alive Mother Brandi Wilder Alive Social History Tobacco Use Types Packs/Day Years [...] on file Legal Sex Female 1:53 AM RAIL ENGINEER Gender Identity Female 11/22/2020 12:52 PM RAIL ENGINEER Sexual Orientation Straight 11/22/2020 12 :52 PM RAIL ENGINEER Obstetrics History Last Filed Vital Signs Vital Sign Reading Time Taken Comments Blood Pressure 128/91 10/11/2024 12:00 PM RAIL ENGINEER Pulse 85 10/11/2024 12:00 PM RAIL ENGINEER Temperature 36.4 ??C (97.5 ??F) 09/09/2023 1 0:00 AM RAIL ENGINEER Respiratory Rate 16 10/11/2024 12:0 0 PM RAIL ENGINEER Oxygen Saturation 100% 10/11/2024 12: 00 PM RAIL ENGINEER Inhaled Oxygen Concentration - - Weight 127.5 kg (281 lb 1.6 oz) 024 12:00 PM RAIL ENGINEER Height 165.1 cm (5' 5 ) 10/11/2024 12:0 0 PM RAIL ENGINEER Body Mass Index 46.78 10/11/2024 12:00 PM RAIL ENGINEER Plan of Treatment Health Maintenance Due Date Last Done Comments Cervical Cancer Screening 2001 Chlamydia and Gonorrhea (GC/ CT) Screening 2001 Hepatitis C Screening 2001 Pneumococcal vaccine <65 (1 of 1 - PPSV23 or PCV20) 2007 11/15/2002, 05/28/2002, 03/16/2002, Additional history exists Meningococcal B Vaccine (2 o f 2 - Risk Bexsero 2-dose series) 08/12/2019 07/15/2019 Regular Well Visit/Exam 18-64 2019 Hemoglobin A1C 04/06/2024 10/06/2023, 11/0 05/2023, 06/06/2023, Additional history exists Influenza Vaccine (#1) 2024 07/15/2019 Foot Exam 09/09/2024 09/09/2023 Albumin Creatinine Ratio, Urine 10/06/2024 3, 02/18/2020 Lipid Panel 10/06/2024 10/06/2023, 1105/2023, 06/26/2020, Additional history exists eGFR 10/06/2024 10/06/2023, 0202/2022, 09/27/2020, Additional history exists Dilated Eye Exam 10/22/2024 10/22/2023 Depression Screening 08/17/2025 08/17/2024, 05/07/2024, 09/09/2023, Additional history exists DTaP/Tdap/Td Vaccine (9 - Td or Tdap) 05/25/2032 05/25/2022, 08/03/2021, 05/07/2013, Additional history exists Varicella Vaccines Completed 02/06/2007, 02/14/2003 HPV Vaccines Completed 04/23/2016, 05/07/2013 Procedures Procedure Name Priority Date/Time Associated Diagnosis Comments DIABETES EYE EXAM Routine 10/22/2023 EGFR Routine 10/06/2023 12:19 PM RAIL ENGINEER New onset type 2 diabetes mellitus (CMS/HCC) (HCC) HEMOGLOBIN A1C Routine 10/06/2023 12:19 PM RAIL ENGINEER New onset type 2 diabetes mellitus (CMS/HCC) (HCC) LIPID PANEL Routine 10/06/2023 12:19 PM RAIL ENGINEER Encounter for screening for lipoid disorders ALBUMIN CREATININE RATIO, URINE Routine 10/06/2023 12:19 PM RAIL ENGINEER New onset type 2 diabetes mellitus (CMS/HCC) (HCC) from Last 3 Months or Most Recently Relevant to Health Maintenance Results * DIABETES EYE EXAM (10/22/2023) SCRIBED DIABETIC DILATED EYE EXAM Normal us Historical Provider MD HEALTH MAINTENANCE Final Result * eGFR (10/06/2023 12:19 PM RAIL ENGINEER) eGFR 128 mL/min/1. 73 m2 CONNIE ALSTON [...] was last reviewed 2021. Testing performed by: [address] [address] Blood 10/06/2023 12:1 9 PM RAIL ENGINEER 10/06/2023 6:45 PM RAIL ENGINEER Roseann Galvan SENIOR PHARMACY TECHNICIAN LAB BLOOD ORDERABLES Final Result CONNIE ALSTON ([place]) 1 [facility] Department of Laboratories [place], [place] [id number] * Albumin Creatinine Ratio, Urine (10/06/2023 12:19 PM RAIL ENGINEER) Albumin Ur <12.0 mg/L CONNIE Baum ([place]) Comment: Interpretive Data No reference range established. Current interpretive data was last revised 2019. Testing performed by: [address] [address] Creatinine Ur 214.2 mg/dL CONNIE ALSTON ([place]) Comment: Interpretive Data No reference range established. Current interpretive data was last revised 2019. Testing performed by: [facility], [address] [place] [address]., [id number] Albumin Creatinine Ratio, Ur <6 1 - 29 mg/g CONNIE ALSTON ([place]) Comment:Testing performed by : [facility], [address] [place] [address]., [id number] Urine 10/06/2023 12:1 9 PM RAIL ENGINEER 10/06/2023 6:05 PM RAIL ENGINEER Roseann Galvan NP LAB URINE ORDERABLES Final Result Performing Organization Address City/[facility]/ZIP Co de Phone Number CONNIE ALSTON ([place]) 1 [facility] [place] [address] * (ABNORMAL) Hemoglobin A1c (10/06/2023 12:19 PM RAIL ENGINEER) [facility] Hgb A1C 7.5(H) 4.0 - 5.6 % CONNIE ALSTON ([place]) Comment:Testing performed by : [facility], [address] [place] [address]., [id number] Estimated Average Glucose 169 mg/dL CONNIE ALSTON ([place]) Comment: The ADA recommends reporting an estimated Average Glucose (eAG) with all Hemoglobin A1c results using the equation derived from a study of 507 normal and diabetic adults. ??Minority populations were underrepresented and children were not included. ?? (Diabetes Care 31:8295-1268, 2008). ??The eAG is not equivalent to a fasting glucose. Testing performed by: [facility], [address] [place] [address]., [id number] Blood 10/06/2023 12:1 9 PM RAIL ENGINEER 10/06/2023 6:05 PM RAIL ENGINEER Roseann Galvan NP LAB BLOOD ORDERABLES Final Result CONNIE ALSTON ([place]) 1 [facility] [place] [address] * (ABNORMAL) Lipid panel (10/06/2023 12:19 PM RAIL ENGINEER) [facility] Cholesterol 169 30 - 199 mg/dL CONNIE [...] last revised on 2018. Testing performed by: [facility], [address] [place] [address], [id number] Triglycerides 162(H) <=149 mg/dL CONNIE ALSTON ([place]) Comment: Interpretive Data [...] last revised on 2018. Testing performed by: [facility], [address] [place] [address]., [id number] HDL 31(L) >=40 mg/dL [facility] ([place]) [...] last revised on 2018. Testing performed by: [facility], [address] [place] [address]., [id number] LDL, calculated 106 <=129 mg/dL [facility] ([place]) Comment: Interpretive Data [...] last revised on 2018. Testing performed by: [facility], [address] [place] [address]., [id number] Non-HDL Cholesterol 138 mg/dL [facility] ([place]) Comment: Interpretive Data [...] last revised on 2018. Testing performed by: [facility], [address] [place] [address]., [id number] Chol/HDL ratio 5 TURNER ALSTON ([facility]) Comment:Testing performed by : [facility], [address] [place] [address]., [id number] Blood 10/06/2023 12:1 9 PM RAIL ENGINEER 10/06/2023 6:05 PM RAIL ENGINEER Roseann Galvan SENIOR PHARMACY TECHNICIAN LAB BLOOD ORDERABLES Final Result CONNIE ALECIA ([facility]) 1 [facility] [place] [address] from Last 3 Months or Most Recently Relevant to Health Maintenance Insurance [employer] [place] [place] [facility] Member Subscriber Plan / Payer (Ef fective 2018-Present) Name:Brandie Torres Relation to Subscriber:Child Name:BRANDI WILDER Date of :1982 (Home) Address: [address] [place] [address] Payer ID:[id number] (NAIC) Type:[facility] Address: [phone] [place] [place] Member Subscriber Plan / Payer (Ef fective 2023-Present) Name:Brandie Torres Relation to Subscriber:Child Name:DANGELO WILDER Date of :1982 (Home) Address: [address] [place] [address] Payer ID:[id number] (NAIC) Type:BC OTHER Address: [facility] [address] [place] [phone] Care Teams Internet Marketing Assistant Relationship Specialty Start Date End Date [place]riel [place] [address] PCP - General Family Medicine 02/23/19
--- OUTSIDE RECORDS SUMMARY | 2024-11-10 05:57 | XMS_ITS | Encounter Summary ---
Author Organization [facility] Address [address] [place] [address]. [place] [address] [place] [address] Care Team Providers Care Burn Crew Member Name Role Phone Lydia Copeland NP Primary Care Provider [phone]- [phone] Reason for Referral * Imaging (Routine) - Closed Specialty Diagnoses / Procedures Referred By Contac t Referred To Contact RADIOLOGY Diagnoses Abdominal pain Procedures CT ABD+PEL W CON Non-Staff, Provider Referral ID Status Reason Start Date Expiration Date Visits Re quested Visits Authorized [id number] Closed 06/26/2020 07/27/2021 1 1 Reason for Visit * Imaging (Routine) - Closed Specialty Diagnoses / Procedures Referred By Contac t Referred To Contact RADIOLOGY Diagnoses Abdominal pain Procedures CT ABD+PEL W CON Non-Staff, Provider Referral ID Status Reason Start Date Expiration Date Visits Re quested Visits Authorized [id number] Closed 06/26/2020 07/27/2021 1 1 Encounter Details Date Type Department Care Team (Latest Contact Info) Description 06/26/2020 4:09 PM CDT - 06/26/2020 11:59 PM CDT [place] [address] [place] [address] [place] [address] [facility] [address] [place] [address] Discharge Disposition: Home or Self Care (Routine [...] have Coronavirus / COVID-19? No / Unsure 06/26/2020 3:57 PM CDT documented as of this encounter Plan of Treatment Not on file documented as of this encounter Procedures Procedure Name Priority Date/Time Associated Diagnosis Comments CT ABD+PEL W CON Routine 06/26/2020 5:25 PM CDT Abdominal pain documented in this encounter Results * CT ABD+PEL W CON (06/26/2020 5:25 PM CDT) Anatomical Region Laterality Modality Abdomen Computed Tomogra phy 06/26/2020 5:26 PM CDT Impressions 06/26/2020 5:31 PM CDT IMPRESSION: 1. Normal-appearing appendix and nonobstructive bowel gas pattern. 2. Somewhat thickened appearance of the endometrial stripe with possible fluid within the endometrial canal. The left ovary also has a somewhat irregular periods. Recommend correlation with follow-up pelvic ultrasound. Interpreted By: Mikey Null, 06/26/2020 5:26 PM Narrative 06/26/2020 5:31 PM CDT Radiation dose reduction technique used HISTORY: Pain Contrast: 85 mL Isovue-370 IV and oral contrast. Report: The bowel gas pattern is not obstructive with no free air or free fluid. The appendix appears normal. Aorta also appears normal. No hydronephrosis or hydroureter. No suspicious retroperitoneal mass is seen. Stomach spleen pancreas liver and gallbladder appear grossly normal. The anteflexed uterus is normal in size, with possible fluid within the endometrial canal versus thickening of the endometrial stripe measuring approximately 1.9 cm as seen on image 70 of the sagittal series. The left ovary appears normal size but has mildly complex attenuation. Right adnexal region within normal limits. Procedure Note Mikey Null MD - 06/26/2020 Radiation dose reduction technique used HISTORY: Pain Contrast: 85 mL Isovue-370 IV and oral contrast. Report: The bowel gas pattern is not obstructive with no free air orfree fluid. The appendix appears normal. Aorta also appears normal. No hydronephrosis or hydroureter. No suspicious retroperitoneal mass is seen. Stomach spleen pancreasliver and gallbladder appear grossly normal. The anteflexed uterus is normal in size, with possible fluid within the endometrial canal versus thickening of the endometrial stripe measuring approximately 1.9 cm as seen on image 70 of the sagittal series. Theleft ovary appears normal size but has mildly complex attenuation. Rightadnexal region within normal limits. IMPRESSION: 1. Normal-appearing appendix and nonobstructive bowel gas pattern. 2. Somewhat thickened appearance of the endometrial stripe with possible fluid within the endometrial canal. The left ovary also has a somewhat irregular periods. Recommend correlation with follow-up pelvicultrasound. Interpreted By: Mikey Null, 06/26/2020 5:26 PM us Provider Non-Staff CT Final Result documented in this encounter Visit Diagnoses Diagnosis Abdominal pain Abdominal pain, unspecified site documented in this encounter Administered Medications Inactive Administered Medications - up to 3 most recent administrations Medication Order MAR Action Action Date Dose Rate Site iopamidol (ISOVUE-370) 76 % injection 85 mL 85 mL, Intravenous, IMG once as needed, Contrast, 1 dose, Starting on 06/26/20 at 1725, Until Fri06/26/20 at 1711 Given 06/26/2020 5:11 PM CDT 85 mLs Right Arm documented in this encounter Care Teams Burn Crew Member Relationship Specialty Start Date End Date Lydia Copeland NP PCP - General NURSE PRACTITIONER 06/26/20 04/25/22 documented as of this encounter
--- OUTSIDE RECORDS SUMMARY | 2024-11-10 05:57 | XMS_ITS | Encounter Summary ---
Author Organization [facility] Healthcare Address [address] [place] [address] Care Team Providers Care Wire Sawyer Name Role Phone Uriel [place] MD Primary Care Provider [phone] Reason for Visit * Reason Onset Date Comments Additional Services Or Orders 05/12/2024 Encounter Details Date Type Department Care Team (Late st Contact Info) Description 05/12/2024 Telephone Family Physicians [facility] [address] [place] [address] Uriel [place] MD [address] [place] [address] Additional Services Or Orders Social History Tobacco Use Types Packs/Day Years [...] on file Legal Sex Female 1:53 AM INCENDIARY POWDER MIXER Gender Identity Female 11/22/2020 12:52 PM INCENDIARY POWDER MIXER Sexual Orientation Straight 11/22/2020 12 :52 PM INCENDIARY POWDER MIXER documented as of this encounter Miscellaneous Notes * Telephone Encounter - Malu Pizano. - 05/12/2024 3:54 PM CDT XR Lumbar spine faxed to [facility], received confirmation; patient aware * Telephone Encounter - Jeannette Diaz. - 05/12/2024 3:28 PM CDT Additional Services or Orders Type of Service Requested:Testing X-rday of Lumbar. Reason for Request (e.g. condition/symptom, date of COVID exposure if applicable): ER said she had a couple of bulging discs, but they didn't take any x-rays, patient also has siatica. Details Regarding Additional Services (e.g. type of home health, type of equipment, type of test, etc.): Radiology. Where will services be performed? (if outside of the practice, facility name, address, phone/fax offacility): [facility]. Additional Comments: Patient said that Dr. [place] said he was ordering her X-ray for [place], or [place], and she does not have a ride to get there, would like to have it at [facility]. Please notify patient once order is placed. Does message need to be routed? Yes-Action Needed documented in this encounter Plan of Treatment Not on file documented as of this encounter Visit Diagnoses Not on filedocumented in this encounter Care Teams Wire Sawyer Relationship Specialty Start Date End Date [place] [address] PCP - General Family Medicine 02/23/19 documented as of this encounter
--- OUTSIDE RECORDS SUMMARY | 2024-11-10 05:57 | XMS_ITS | Encounter Summary ---
Author Organization [facility] Address [address] [place] [address]. [place] [address] [place] [address] Care Team Providers Care Tire Assembler Name Role Phone Lydia Copeland NP Primary Care Provider [phone]- [phone] Reason for Referral * Imaging (Routine) - Closed Specialty Diagnoses / Procedures Referred By Contac t Referred To Contact RADIOLOGY Diagnoses Increased endometrial stripe thickness Procedures US PELVIC NON OB COMP TV Non-Staff, Provider Referral ID Status Reason Start Date Expiration Date Visits Re quested Visits Authorized [id number] Closed 06/27/2020 07/28/2021 1 1 Reason for Visit * Imaging (Routine) - Closed Specialty Diagnoses / Procedures Referred By Contac t Referred To Contact RADIOLOGY Diagnoses Increased endometrial stripe thickness Procedures US PELVIC NON OB COMP TV Non-Staff, Provider Referral ID Status Reason Start Date Expiration Date Visits Re quested Visits Authorized [id number] Closed 06/27/2020 07/28/2021 1 1 Encounter Details Date Type Department Care Team (Latest Contact Info) Description 06/30/2020 9:49 AM CDT - 06/30/2020 11:59 PM CDT Hospital Encounter [facility] [address] [place] [address] Non-Staff, [place] [address] [address] [place] [address] Discharge Disposition: Home or Self Care (Routine [...] have Coronavirus / COVID-19? No / Unsure 06/30/2020 9:46 AM CDT documented as of this encounter Plan of Treatment Not on file documented as of this encounter Procedures Procedure Name Priority Date/Time Associated Diagnosis Comments US PELVIC NON OB COMP TV Routine 06/30/2020 10:25 AM CDT Increased endometrial stripe thickness documented in this encounter Results * US PELVIC NON OB COMP TV (06/30/2020 10:25 AM CDT) Anatomical Region Laterality Modality Pelvis Ultrasound 06/30/2020 11:0 3 AM CDT Impressions 06/30/2020 11:06 AM CDT IMPRESSION: 1. ??Unable to visualized the right ovary. 2. ??Thickening of the endometrial lining could be seen in this age group prior to menstruation. Interpreted By: Dawit Yang, 06/30/2020 11:03 AM Narrative 06/30/2020 11:06 AM CDT EXAMINATION: US PELVIC NON OB COMP TV EXAM DATE: 06/30/2020 9:53 AM COMPARISON STUDIES: CT abdomen pelvis 06/26/2020. CLINICAL HISTORY: ??Increased endometrial stripe thickness ?? . Additional history FINDINGS: Real time ultrasound examination performed by the it engineer of the pelvis through transvaginal approach. Images presented for interpretation demonstrate: The uterus measures 7.5 x 4 x 5.6 cm with an endometrial lining of 1.3 mm. Demonstrates ??normal shape and configuration , without evidence of focal lesions. Nabothian cyst noted in the cervix. The left ovary measures 3.1 x 1.6 x 2 cm without evidence of focal lesions. ?? . ? The right ovary was not visible. ? Trace amount of physiologic free fluid noted in the cul-de-sac. Procedure Note Dawit Yang MD - 06/30/2020 EXAMINATION: US PELVIC NON OB COMP TV EXAM DATE: 06/30/2020 9:53 AM COMPARISON STUDIES: CT abdomen pelvis 06/26/2020. CLINICAL HISTORY: Increased endometrial stripe thickness . Additional history FINDINGS: Real time ultrasound examination [facility] the [facility] transvaginal approach. Images presented forinterpretation demonstrate: The uterus measures 7.5 x 4 x 5.6 cm with an endometrial lining of 1.3mm. Demonstrates normal shape and configuration , without evidence of focal lesions. Nabothian cyst noted in the cervix. The left ovary measures 3.1 x 1.6 x 2 cm without evidence of focallesions. . The right ovary was not visible. Trace amount of physiologic free fluid noted in the cul-de-sac. IMPRESSION: 1. Unable to visualized the right ovary. 2. Thickening of the endometrial lining could be seen in this age group prior to menstruation. Interpreted By: Dawit Yang, 06/30/2020 11:03 AM us Provider Non-Staff ULTRASOUND Final Result documented in this encounter Visit Diagnoses Diagnosis Increased endometrial stripe thickness Nonspecific (abnormal) findings on radiological and other examination of genitourinary organs documented in this encounter Care Teams Tire Assembler Relationship Specialty Start Date End Date Lydia Copeland NP PCP - General NURSE PRACTITIONER 06/26/20 04/25/22 documented as of this encounter
--- OUTSIDE RECORDS SUMMARY | 2024-11-10 05:57 | XMS_ITS | Encounter Summary ---
Author Organization [facility] Address [address] [place] [address]. [place], [place] [address] [place] [address] Care Team Providers Care Set Up Mechanic Coil Winding Machines Name Role Phone Lydia [place] ELECTROLYTIC ETCHER Primary Care Provider [phone]- [phone] Encounter Details Date Type Department Care Team (Latest Contact Info) Description 06/30/2020 Travel Social History Tobacco Use Types Packs/Day Years [...] on filedocumented in this encounter Care Teams Set Up Mechanic Coil Winding Machines Relationship Specialty Start Date End Date Lydia Copeland NP PCP - General NURSE PRACTITIONER 06/26/20 04/25/22 documented as of this encounter
--- OUTSIDE RECORDS SUMMARY | 2024-11-10 05:57 | XMS_ITS | Encounter Summary ---
Author Organization [facility] Address [address] [place] [address]. [place] [address] [place] [address] Care Team Providers Care Propeller Inspector Name Role Phone Lydia Cop[place] NP Primary Care Provider [phone]- [phone] Encounter Details Date Type Department Care Team (Latest Contact Info) Description 06/12/2021 3:06 PM CDT - 06/12/2021 4:20 PM CDT Hospital Encounter [facility] [address] [place] [address] [facility] [address] [place] [address] Discharge Disposition: Home or Self Care (Routine [...] Procedure Name Priority Date/Time Associated Diagnosis Comments RHOGAM CANDIDACY Routine 06/12/2021 3:22 PM CDT screening encounter ([facility]) ANTIBODY SCREEN Routine 06/12/2021 3:22 PM CDT screening encounter ([facility]) HC BLOOD TYPING ABO Routine 06/12/2021 3 :22 PM CDT screening encounter ([facility]) documented in this encounter Results * ANTIBODY SCREEN (06/12/2021 3:22 PM CDT) ANTIBODY SCREEN NEGATIVE 06/12/2021 4:20 PM CDT [facility] 06/12/2021 3:22 PM CDT Rowan L [employer] BLOOD BANK TEST ORDERABLES F inal Result Performing Organization Address City/[facility]/ZIP Co de Phone Number [facility] [address] [place] [address], [place] [phone] * RHOGAM CANDIDACY (06/12/2021 3:22 PM CDT) MOM'S RHOGAM STATUS PATIENT IS AN RH IMMUNE GLOBULIN CANDIDATE 06/12/2021 4:22 PM CDT [facility] Comment: CALLED RESULT RAVI BARLOW @[phone] [id number] BY LAK READ BACK AND VERIFIED 06/12/2021 3:22 PM CDT [facility] BLOOD BANK TEST ORDERABLES F inal Result Performing Organization Address [facility]/ZIP Co de Phone Number [facility] [address] [place] [address], [place] [phone] * BLOOD TYPING, ABO AND RH (06/12/2021 3:22 PM CDT) ABO/RH O NEGATIVE 06/12/2021 4:19 PM CDT [facility] 06/12/2021 3:22 PM CDT [facility] BLOOD BANK TEST ORDERABLES F inal Result [facility] [address] [place] [address], documented in this encounter Visit Diagnoses Diagnosis screening encounter ([facility]) Unspecified screening documented in this encounter Care Teams Propeller Inspector Relationship Specialty Start Date End Date Lydia Copeland NP PCP - General NURSE PRACTITIONER 06/26/20 04/25/22 documented as of this encounter
--- OUTSIDE RECORDS SUMMARY | 2024-11-10 05:57 | XMS_ITS | Encounter Summary ---
Author Organization [facility] Address [address] [facility] [place] [address] Care Team Providers Care Bricklayer Paving Brick Name Role Phone Omega Colon MD Primary Care Provider [phone] Reason for Visit * Reason Onset Date Comments Results 05/22/2016 Encounter Details Date Type Department Care Team (Late st Contact Info) Description 05/22/2016 Telephone [facility] Pediatrics - Endocrinology [address] [place] [address] Deandre Vázquez MD [address] [place] [phone] Results Social History Tobacco Use Types Packs/Day Years Used Date Smoking Tobacco: Never Alcohol Use Standard Drinks/Week Comments Not Asked 0 (1 standard drink = 0.6 oz pur e alcohol) Sex and Gender Information Value Date Recorded Sex Assigned at Not on file Gender Identity Not on file Sexual Orientation Not on file documented as of this encounter Miscellaneous Notes * Telephone Encounter - Deandre Vázquez MD - 05/22/2016 11:08 AM CDT Reviewed lab results, impression, recommendations on 05/22/2016 with mother by telephone who concur(s). Deandre Vázquez MD 05/22/2016 11:09 AM documented in this encounter Plan of Treatment Not on file documented as of this encounter Visit Diagnoses Not on filedocumented in this encounter Care Teams Bricklayer Paving Brick Relationship Specialty Start Date End Date Omega Colon MD [address] [place] [address] PCP - General Pediatrics 12/21/12 07/28/18 documented as of this encounter
--- OUTSIDE RECORDS SUMMARY | 2024-11-10 05:57 | XMS_ITS | Encounter Summary ---
Author Organization [facility] Address [address] [place] [address] Care Team Providers Care Clinic Supervisor Name Role Phone Christine Peterson MD Primary Care Provider [phone] Reason for Visit * Reason Onset Date Comments Results 09/03/2018 Encounter Details Date Type Department Care Team (Late st Contact Info) Description 09/03/2018 Telephone [facility] Pediatrics - Endocrinology [address] [place] [address] Deandre Vázquez MD [address] [place] [address] Results Social History Tobacco Use Types Packs/Day [...] on filedocumented in this encounter Care Teams Clinic Supervisor Relationship Specialty Start Date End Date Christine Peterson MD [address] [facility] [address] [place] [id number] PCP - General Pediatrics 07/29/18 documented as of this encounter
--- OUTSIDE RECORDS SUMMARY | 2024-11-10 05:57 | XMS_ITS | Encounter Summary ---
Author Organization [facility] Healthcare Address [address] [place] [address] Care Team Providers Care Military Education Coordinator Name Role Phone Uriel [place] MD Primary Care Provider [phone] Reason for Visit * Reason Onset Date Comments Medical Question/Miscellaneous 06/22/2024 Encounter Details Date Type Department Care Team (Late st Contact Info) Description 06/22/2024 Telephone Family Physicians [facility] [address] [place] [address] Uriel [place] MD [address] [place] [address] Medical Question/Miscellaneous Social History Tobacco [...] on file Legal Sex Female 1:53 AM LABOR RELATIONS REPRESENTATIVE Gender Identity Female 11/22/2020 12:52 PM LABOR RELATIONS REPRESENTATIVE Sexual Orientation Straight 11/22/2020 12 :52 PM LABOR RELATIONS REPRESENTATIVE documented as of this encounter Miscellaneous Notes * Telephone Encounter - Anaid Solano RN - 06/22/2024 3:09 PM CDT Called [facility] to request fax number: [phone]. * Telephone Encounter - Shauna Braden - 06/22/2024 2:38 PM CDT Medical Question/Miscellaneous Caller???s Concern: called to check on referral status. electronic controls repairer supervisor relayed it was still pending. Please call once it is back. Does message need to be routed? Yes-Action Needed documented in this encounter Plan of Treatment Not on file documented as of this encounter Visit Diagnoses Not on filedocumented in this encounter Care Teams Military Education Coordinator Relationship Specialty Start Date End Date [place] [address] PCP - General Family Medicine 02/23/19 documented as of this encounter
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
--- OUTSIDE RECORDS SUMMARY | 2024-11-10 05:57 | XMS_ITS | Encounter Summary ---
Author Organization [facility] Address [address] [place] [address] Care Team Providers Care Host Name Role Phone Christine Peterson MD Primary Care Provider [phone] Reason for Referral * Consult, Test & Treat (Routine) - Closed Specialty Diagnoses / Procedures Referred By Contteresita t Referred To Contact Cardiology Diagnoses Diet controlled gestational diabetes mellitus (GDM) in second trimester (HCC) Family history of congenital heart defect Procedures ECHO CONSULT - Ion Garcia MD [address] [address] Referral ID Status Reason Start Date Expiration Date Visits Re quested Visits Authorized [id number] Closed 04/24/2021 04/24/2022 1 1 Reason for Visit * Reason Comments Ultrasound Encounter Details Date Type Department Care Team (Latest Contact Info) Description 04/24/2021 10:54 AM CDT - 04/24/2021 11:59 PM CDT Hospital Encounter [facility] Women's Health Maternal & Care [facility] [place] [address] Ion Garcia MD [address] [address] Discharge Disposition: Home or Self Care Social [...] on file documented as of this encounter Medications at Time of Discharge Medication Sig Dispensed Refills Start Date End Date aspirin (ASPIRIN) 81 MG chew tablet Take 162 mg by mouth once daily Lancets (MICROLET) MISC Use 5-9 Each once daily Use to check blood sugar twice daily or as directed. 100 Each 11 08/25/2018 Vit-Fe Fumarate-FA ( VITAMIN) 28-0.8 MG tabletIndications:Preg devi Take 1 tablet by mouth once daily Reasons: blood glucose (IVAN CONTOUR NEXT TEST) test strip Use to test blood sugar twice daily or as directed. 100 strip 11 08/25/2018 05/14/2022 FLUoxetine (PROZAC) 10 MG capsule Take 10 mg by mouth once daily 06/13/2021 FLUoxetine (PROZAC) 20 MG capsule TK WITH PROZAC 10 MG QD FOR 30 DAYS 06/27/2017 06/13/2021 documented as of this encounter Plan of Treatment Pending Results Name Type Priority Associated Diagnoses Date /Time ECHO CONSULT - ECHO Routine Diet controlled gestational diabetes mellitus (GDM) in second trimester ([facility]) Family history of congenital heart defect 03/07/2022 1:52 PM CDT documented as of this encounter Procedures Procedure Name Priority Date/Time Associated Diagnosis Comments SONOGRAM - COMPLETE Routine 04/24/2021 1 1:10 AM CDT Encounter for supervision of normal first in second trimester ([facility]) Diet controlled gestational diabetes mellitus (GDM) in second trimester ([facility]) Family history of congenital heart defect documented in this encounter Results * SONOGRAM - COMPLETE (04/24/2021 11:10 AM CDT) Anatomical Region Laterality Modality Other 04/24/2021 11:1 0 AM CDT Narrative 04/24/2021 1:22 PM CDT ? [facility] ? [facility] ?PHONE: ??FAX: Pat. Name: ?BRANDIE TORRES Pat. No: ?[id number] Study Date: ?? 04/24/2021 ??11:10am , Age: ? 2000, 20 Pregnancies: ?? 1 Height: ? 64 in Weight: ? 289 lb LMP: ?2020 GA by LMP: ?23w1d GA by Base: ?? 23w1d ?? KYLEE: 08/20/2021 GA by US: ? 22w1d ?? KYLEE: 08/27/2021 GA Selected: ??23w1d (From [facility]) KYLEE: ?08/20/2021 Referring MD: Funmi Padilla MD Captain/Airline Pilot: ??Samia Reynolds RDMS CPT4: ? 24037 BMI: ?49.6 Hist/Ind: ? Complete Anatomy Screen ?FOB-HLHS ?GDM ?Class III Obesity (BMI 49) MEASUREMENTS & AGE ? GROWTH EVALUATION Measurement ??GA ? Range ? Srce %for GA Ratios ----- ---- ------- BPD ??5.3 cm 22w1d (98w8r-08m2s) Hadl BPD 12% FL/BPD 0.75 (0.71 - 0.87) HC ??19.8 cm 22w0d (70m7y-79z4h) Hadl HC ??5% FL/AC ??0.22 (0.20 - 0.24) AC ??17.9 cm 22w6d (67e0q-02n3j) Hadl AC ??31% HC/AC ??1.10 (1.03 - 1.22) FL ?? 4.0 cm 22w5d (72n5u-07u6f) Hadl FL ??26% CI ? 0.76 (0.70 - 0.86) HL ?? 3.7 cm 23w0d (26p2w-61m5w) Jose HL ??49% GA for sonogram 22w1d (34q9p-53h3s) ?? Weight Estimate: based on (BPD,HC,AC,FL) Hadlock ?Weight: 523 gm (447-600gm) Hadloc ? : 1lbs, 2oz ? Normal: 578 gm (434-723gm) Hadloc ? Wt% ? 24% for 23w1d Heart Rate: 147 bpm Amniotic Fluid Index: 05.5cm (Deepest Pocket) EVAL, PLACENTA Presentation: breech Umbilical Cord: 3 Vessels Placenta: anterior Heart Rate: 147 bpm Amniotic Fluid Volume: normal Anatomy!Normal!Abnormal!Suboptimal!Prev. Seen!Comments Cranium ?! ?? x ??! ?! ?! ?! Mdl (CSP/Thal! ?! ?! ?! ? x ?! Ventricles ?? ! ?! ?! ? x ?! ?!Right normal?left suboptimal Choroid Plexu! ?? x ??! ?! ?! ?! Cerebellum ?? ! ?! ?! ?! ? x ?! Cerebellar Ve! ?? x ??! ?! ?! ?! Cisterna M. ??! ?! ?! ?! ? x ?! Nuchal Fold ??! ?! ?! ?! ? x ?! Orbits ? ! ?! ?! ?! ? x ?! Profile ?! ?! ?! ?! ? x ?! Nasal Bone ?? ! ?! ?! ?! ? x ?! Lip ?! ?! ?! ? x ?! ?! Maxilla ?! ?! ?! ?! ? x ?! Mandible ? ! ?! ?! ?! ? x ?! Neck ? ! ?? x ??! ?! ?! ?! Spine ?! ?? x ??! ?! ?! ?! Lungs ?! ?! ?! ? x ?! ?! 4 Chamber Hea! ?! ?! ? x ?! ?! LVOT ? ! ?! ?! ? x ?! ?! RVOT ? ! ?! ?! ? x ?! ?! 3 Vessel View! ?! ?! ? x ?! ?! 3 Vessel Trac! ?! ?! ? x ?! ?! Cross-over ?? ! ?! ?! ? x ?! ?! Ductal Arch ??! ?! ?! ? x ?! ?! Aortic Arch ??! ?! ?! ? x ?! ?! Caval View ?? ! ?! ?! ? x ?! ?! Situs ?! ?! ?! ? x ?! ?! Diaphragm ?! ?! ?! ?! ? x ?! Stomach ?! ?! ?! ?! ? x ?! Liver ?! ?? x ??! ?! ?! ?! Bowel ?! ?! ?! ?! ? x ?! Kidneys ?! ?! ?! ?! ? x ?! Bladder ?! ?! ?! ?! ? x ?! 3 Vessel Cord! ?! ?! ?! ? x ?! Cord In! ?! ?! ?! ? x ?! Upper Extremi! ?? x ??! ?! ?! ?!left, right ?previously seen Hands ?! ?! ?! ? x ?! ?! Lower Extremi! ?? x ??! ?! ?! ?! Feet ? ! ?! ?! ? x ?! ?! External Pretty! ?! ?! ?! ? x ?! Placental Cor! ?? x ??! ?! ?! ?! CLINICAL SUMMARY Study Number: 2 ?? A single fetus is seen in breech presentation. ??The measurements today are consistent with accelerated interval growth. ??The KYLEE is based on LMP and today's ultrasound examination. ??The amniotic fluid volume is within normal limits. ?? anatomy was limited by challenging maternal acoustic properties and position. ?? IMPRESSION: Single, live, intrauterine at 23w1d ?? size is has appropriate growth ?? Amniotic fluid volume: within normal limits ?? RECOMMEND: Ultrasound in 4 weeks for to complete the anatomy survey and assess growth. ECHO order placed Thank you for allowing us the opportunity to care for your patient. ?? Ion Garcia MD <Electronic Signature> ??04/24/2021 01:22pm Gulshan Barnes MD [facility] ORDERABLES documented in this encounter Visit Diagnoses Diagnosis Encounter for supervision of normal first in second trimester (HCC) Supervision of normal first Gestational diabetes mellitus (GDM) in second trimester, gestational diabetes method of control unspecified (HCC) Family history of congenital heart defect Family history of congenital anomalies 23 weeks gestation of (HCC) state, incidental documented in this encounter Care Teams Host Relationship Specialty Start Date End Date Christine Peterson MD [address] [facility] [address] [place] [id number] PCP - General Pediatrics 07/29/18 documented as of this encounter
--- OUTSIDE RECORDS SUMMARY | 2024-11-10 05:57 | XMS_ITS | Encounter Summary ---
Author Organization [facility] Address [address] [place] [address]. [place], [place] [id number] [place] [address] Care Team Providers Care Kapok And Cotton Machine Operator Name Role Phone Lydia Copeland CAT OPERATOR Primary Care Provider [phone] Encounter Details Date Type Department Care Team (Latest Contact Info) Description 06/12/2021 Travel Social History Tobacco Use Types Packs/Day [...] on filedocumented in this encounter Care Teams Kap[employer] Cotton Machine Operator Relationship Specialty Start Date End Date Lydia Copeland NP PCP - General NURSE PRACTITIONER 06/26/20 04/25/22 documented as of this encounter
--- OUTSIDE RECORDS SUMMARY | 2024-11-10 05:57 | XMS_ITS | Encounter Summary ---
Author Organization [facility] Address [address] [place] [address] Care Team Providers Care Dry Man Name Role Phone Christine Peterson MD Primary Care Provider [phone] Reason for Visit * Reason Onset Date Comments Reminder Call 03/26/2021 LM - Appt Remind er & 1 Visitor Policy Encounter Details Date Type Department Care Team (Late st Contact Info) Description 03/26/2021 Telephone [facility] Women's Health Maternal & Care [address] [place] [address] Jerrica Bradley A Reminder Call (LM - Appt Reminder & 1 Visitor Policy) Social History Tobacco Use Types Packs/Day Years [...] on filedocumented in this encounter Care Teams Dry Man Relationship Specialty Start Date End Date Christine Peterson MD [address] [facility] [address] [place] [id number] PCP - General Pediatrics 07/29/18 documented as of this encounter
--- OUTSIDE RECORDS SUMMARY | 2024-11-10 05:57 | XMS_ITS | Encounter Summary ---
Author Organization [facility] Address [address] [place] [address] Care Team Providers Care Coffee Maker Name Role Phone Uriel Walker MD Primary Care Provider [phone] Reason for Visit * Reason Onset Date Comments Prior Authorization (Ozempic) 10/18/2024 Encounter Details Date Type Department Care Team (Late st Contact Info) Description 10/18/2024 Telephone [facility] [address] [place] [address] Uriel Walker MD [address] [place] [address] Prior Authorization (Ozempic) Social History Tobacco Use Types Packs/Day Years [...] on file Legal Sex Female 1:53 AM ETL BI DEVELOPER Gender Identity Female 11/22/2020 12:52 PM ETL BI DEVELOPER Sexual Orientation Straight 11/22/2020 12 :52 PM ETL BI DEVELOPER documented as of this encounter Miscellaneous Notes * Telephone Encounter - Joleen Frye MA - 10/18/2024 8:51 AM CST Received fax from [employer] stating that Raulito is requiring a PA Submitted PA through [employer] Received response stating that prior authorization is not required for this patient/ medication. BI DEVELOPER documented in this encounter Plan of Treatment Not on file documented as of this encounter Visit Diagnoses Not on filedocumented in this encounter Care Teams Coffee Maker Relationship Specialty Start Date End [place] [address] PCP - General Family Medicine 02/23/19 documented as of this encounter
--- OUTSIDE RECORDS SUMMARY | 2024-11-10 05:57 | XMS_ITS | Encounter Summary ---
Author Organization [facility] Address [address] [place] [address] Care Team Providers Care Bricklayer Supervisor Name Role Phone Christine Peterson MD Primary Care Provider [phone] Reason for Visit * Reason Comments Ultrasound FAD NST Encounter Details Date Type Department Care Team (Latest Contact Info) Description 06/29/2021 2:42 PM CDT - 06/29/2021 11:59 PM CDT Hospital Encounter [facility] Maternal & Care [address] [place] [id number] Gulshan Barnes MD Discharge Disposition: Home [...] Progress Notes * Antonieta Rose RN - 06/29/2021 4:04 PM CDT Patient here today for NST/BPP performed at 32w4d for GDM and Obesity. Patient reports positive movement. Denies cramping, contractions, bleeding, and leakage of fluid. Patient denies headache,epigastric pain and visual changes. VS per flowsheet. BPP today 06/10. During NST FHT s noted to be decreasing at 1603 RN to room and patient asked to turn to left side, patient had a gradual decelerati on at [phone] with heart tones audibly at 88-102, although FHT's were not picking up the entire time. FHT s gradually up to [address] Barnes called. Explaination to patient as she was turning on side and after talking with the physician. Dr. Barnes recommends the ingot passer obtain umbilical dopplers and look at the cord then send patient immediately to L&D. Patient instructed to go immediately to L&D at [facility] for extended monitoring. I tried to call Dr. Farmer's office but they were closed. I called report to Tammy Yang RN at [facility]. Patient arrived at L&D when I was on phone with RN. Antonieta Rose, ALIS 06/29/2021 4:39 PM documented in this encounter Plan of Treatment Not on file documented as of this encounter Procedures Procedure Name Priority Date/Time Associated Diagnosis Comments BIOPHYSICAL PROFILE W NST Routine 06/29/2021 3:20 PM CDT Diet controlled gestational diabetes mellitus (GDM) in third trimester (HCC) Family history of congenital heart defect documented in this encounter Results * BIOPHYSICAL PROFILE W NST (06/29/2021 3:20 PM CDT) Anatomical Region Laterality Modality Other 06/29/2021 3:20 PM CDT Narrative 06/29/2021 7:01 PM CDT ? [facility]aternal Medicine ? Maternal & Care Center ?PHONE: ??FAX: Pat. Name: ?BRANDIE TORRES. No: ?[id number] Study Date: ?? 06/29/2021 ??3:20pm , Age: ? 2000, 20 Pregnancies: ?? 1 Height: ? 64 in Weight: ? 289 lb LMP: ?2020 GA by LMP: ?32w4d GA by Base: ?? 32w4d ?? KYLEE: 08/20/2021 GA Selected: ??32w4d (From [facility]) KYLEE: ?08/20/2021 Referring MD: Funmi Padilla MD Him Coder: ??Merary Kramer RDMS CPT4: ? 26021,19923,23225 BMI: ?49.6 Hist/Ind: ? Incomplete Anatomy Screen ?FOB-HLHS ?GDM ?Class III Obesity (BMI 49) ?Normal ECHO-06/07/21 Heart Rate: 152 bpm Amniotic Fluid Index: 15.7cm (08.4-24.4) Q1: 5.2cm ??Q2: 2.5cm ??Q3: 4.4cm ??Q4: 3.6cm ?? Biophysical Profile: 08/12 Breathin ?? Tone: 2 ?? NST: 2 Movement: ??2 ?? AFV: ??2 EVAL, PLACENTA Presentation: cephalic Placenta: posterior Heart Rate: 152 bpm Amniotic Fluid Volume: normal DOPPLER Umbilical - Mid Cord S/D ??2.80(1.81 - 3.81) ? PI ?? 0.95 (0.65 - 1.23) ? CLINICAL SUMMARY Study Number: 4 ??A single fetus is seen in cephalic presentation. ?? The amniotic fluid volume is within normal limits. ??The FHR baseline is 150 bpm during today's reactive NST. ??The FHR variability was normal. ??prolonged uniform deceleration at 16:04. There is mild cord notching in the umbilical artery possibly consistent with intermittent cord obstruction. IMPRESSION: Single, live, intrauterine at 32w4d Amniotic fluid volume: within normal limits ?? Biophysical profile: Reassuring ?? RECOMMEND: To Labor & Delivery for prolonged monitoring Continue twice weekly testing ?? Repeat growth assessment in 2 weeks ?? Thank you for allowing us the opportunity to care for your patient Gulshan Barnes MD <Electronic Signature> ??06/29/2021 07:00pm Libby Farmer MD [facility] ORDERABLES documented in this encounter Visit Diagnoses Diagnosis Encounter for supervision of normal first in third trimester ([facility]) Supervision of normal first Gestational diabetes mellitus (GDM) in third trimester, gestational diabetes method of control unspecified ([facility]) Family history of congenital heart defect Family history of congenital anomalies 32 weeks gestation of (HCC) state, incidental documented in this encounter Care Teams Bricklayer Supervisor Relationship Specialty Start Date End Date Christine Peterson MD [address] [facility] [address] [place] [phone] PCP - General Pediatrics 07/29/18 documented as of this encounter
--- OUTSIDE RECORDS SUMMARY | 2024-11-10 05:57 | XMS_ITS | Encounter Summary ---
Author Organization [facility] Healthcare Address [address] [place] [address] Care Team Providers Care Terrazzo Worker Name Role Phone Uriel Walker MD Primary Care Provider [phone] Reason for Visit * Reason Onset Date Comments Back Pain 05/24/2024 Encounter Details Date Type Department Care Team (Late st Contact Info) Description 05/24/2024 Nurse Triage [facility] [address] [place] [address] Uriel Walker MD [address] [place] [address] Social History Tobacco Use Types Packs/Day Years [...] on file Legal Sex Female 1:53 AM RECREATIONAL SPORTS DIRECTOR Gender Identity Female 11/22/2020 12:52 PM RECREATIONAL SPORTS DIRECTOR Sexual Orientation Straight 11/22/2020 12 :52 PM RECREATIONAL SPORTS DIRECTOR documented as of this encounter Miscellaneous Notes * Telephone Encounter - Mabel Baumann RN - 05/24/2024 6:02 PM CDT Reason for Disposition [1] Pain radiates into the thigh or further down the leg AND [2] one leg Protocols used: Back [id number] Pt reports moderate to severe pain in her mid back right about her bra line. Pain started today. Ptreports her right leg is weak at times and shakes but she doesn't have to drag it. She states this is not new. Pt reports she has been doing too much and is doing things she knows she is not supposedto like standing too much. Pt did not start prednisone that was prescribed on 05/07. She is taking cyclobenzaprine and tramadol with short term relief. She denies numbness, hematuria, dyspnea, groin orrectal pain. Disposition per guideline: Care Advice/education/call back instruction given:pt will go home and take medication and use heat as directed. If no improvement she will call to make appt. * Telephone Encounter - Mabel Baumann RN - 05/24/2024 5:47 PM CDT Regarding: moderate to severe burning pain in middle of back ----- Message from Ingrid Rogers sent at 05/24/2024 5:46 PM CDT ----- Symptom Based Call Chief Complaint(s): moderate to severe burning pain in middle of back Duration: now What type of symptom(s) is the patient experiencing? Red Flag. Is the patient concerned they are experiencing a medical emergency requiring an ambulance? No Additional Comments: patient asking if this could be related to physical therapy she is currently in, she fractured her L5. Patient doesn't know if this new pain is something of concern or not Does message need to be routed? Yes-Action Needed documented in this encounter Plan of Treatment Not on file documented as of this encounter Visit Diagnoses Not on filedocumented in this encounter Care Teams Terrazzo Worker Relationship Specialty Start Date End Date Uriel Walker MD [address] [place] [address] PCP - General Family Medicine 02/23/19 documented as of this encounter
--- OUTSIDE RECORDS SUMMARY | 2024-11-10 05:57 | XMS_ITS | Encounter Summary ---
Author Organization [facility] Address [address] [place] [address] Care Team Providers Care Commercial Baking Teacher Name Role Phone Christine Peterson MD Primary Care Provider [phone] Reason for Visit * Reason Comments Diabetes Encounter Details Date Type Department Care Team (Latest Contact Info) Description 08/25/2018 9:00 AM CDT - 08/25/2018 11:19 AM CDT Hospital Encounter [facility] Pediatrics - Diabetes Mgmt [address] [place] [id number] Deandre Vázquez MD [address] [place] [id number] Discharge Disposition: Home or Self Care Social [...] - Inhaled Oxygen Concentration - - Weight 128.6 kg (283 lb 8.2 oz) 08/25/2018 9:27 AM CDT Height 166.1 cm (5' 5.39 ) 08/25/2018 9:27 AM CD T Body Mass Index 46.61 08/25/2018 9:27 AM CDT Body Mass Index Percentile 99.94% 08/25/2018 9:2 7 AM CDT Growth Chart: [facility] (Girls, 2- 20 Years) documented in this encounter Discharge Instructions * Patient Instructions* Evelyne Jhaveri, ALIS - 08/25/2018 9:53 AM CDT Measure blood glucose level twice daily [fasting (daily) and at one other time of day - before lunch, dinner, bedtime and two hours after a large meal] and record in logbook Call if fasting blood glucose level consistently over 200 mg/dL Increase diet/exercise to promote weight loss, start with walking 3 times a week, then adding strength training to routine. Call in one week to report blood sugars to office, documented in this encounter Medications at Time of Discharge Medication Sig Dispensed Refills Start Date End Date FLUoxetine (PROZAC) 10 MG capsule Take 10 mg by mouth once daily 06/13/2021 FLUoxetine (PROZAC) 20 MG capsule TK WITH PROZAC 10 MG QD FOR 30 DAYS 06/27/2017 06/13/2021 norethin-eth estradiol-FE (JUNE11/22) 1-20 MG-MCG tablet take 1 tablet by oral route every day 03/17/2017 03/26/2021 documented as of this encounter Progress Notes * Evelyne Jhaveri, ALIS - 08/25/2018 10:48 AM CDT I met with Brandie and her father in clinic on 08/25/18 for instruction on glucometer and recording blood sugars. I gave Brandie a Contour Next meter and let her know that insurance may prefer another meter. I showed Brandie how to use the meter along with how to calibrate the machine. Brandie poked her finger with good technique, fasting blood sugar was 126. Log book given and showed where to record blood sugars. I spoke to Brandie briefly about what type 2 diabetes is along with the benefits of exercise. I encouraged Brandie to exercise regularly starting with walking three times a week then adding strength training. I gave a office contact sheet and asked that Brandie have mother call in blood sugars next week. * Deandre Vázquez MD - 08/25/2018 9:34 AM CDT Images from the original note were not included. Brandie Torres and her father (contact telephone: [phone]) were seen in our outpatient Pediatric Endocrinology offices at [facility] in [place], [place] on 08/25/2018. She is a 17 y.o. 9 m.o. girl who is referred for evaluation of: Problem Elevated Hemoglobin A1c May 04, 2016 ([facility] in [place], [place]) hemoglobin A1c 6.2% (< 5.7), TSH 2.75 uIU/mL (0.465-4.68), free T4 0.96 ng/dL (0.78-2.19), ALT 24 U/L (9-52), cholesterol 160 mg/dL (200); triglyceride 117 mg/dL (< 150), HDL- cholesterol 45 mg/dL (> 35), LDL-cholesterol 81 mg/dL (< 130) May 22, 2018 - hemoglobin A1c 5.8% ([facility]) Jul, 2018 - elevated hemoglobin [facility] at [facility] (results unavailable) Present Illness Brandie Torres is a now 16-9/12 year old girl whom I saw three years ago for an elevated hemoglobin A1c level, noted above, noted at a routine [facility] visit which was normal in our laboratory. She and her father return today after she was again noted to have a mildly elevated hemoglobin A1c level again noted at a [facility]. Her medications are noted below. She is without unexplained constitutional symptoms, including weakness, fatigue, lethargy, fever, rash, cough, abdominal pains, vomiting, diarrhea, polyuria, polydipsia, or heat/cold intolerance. Depression Screening (PHQ-9): 7 [Score - 5 (~mild), 10 (~ moderate) and 15 (~ severe) depression]. Counseled: Yes [support, educate (signs/symptoms), referral to primary care provider, child psychology/psychiatry] PAST MEDICAL HISTORY History ??? Weight: 4734 g (10 lb 7 oz) ??? Delivery Method: ??? Gestation Age: 42 wks ??? Hospital Name: [facility] ??? Hospital Location: [place], [place] complicated by maternal diabetes mellitus, managed with insulin, and hypertension. Past Medical History: Diagnosis Date ??? Anxiety treated with Prozac ??? Obesity 05/17/2011 Past Surgical History: Procedure Laterality Date ??? NEGATIVE SURGICAL HISTORY Family History Problem Relation Age of Onset ??? Diabetes Mother 15 Type 1 [dialysis dependent, Aug, 2018)] ??? Hypertension Mother during ??? Asthma Mother ??? Hypertension Father ??? Asthma Father ??? Depression Father depression/anxiety ??? Heart Failure Maternal Grandfather ??? Diabetes Maternal Grandfather ??? Diabetes Paternal Uncle diet control Social History Social History Narrative Parents are not [...] jacinto in her coursework. Immunizations:UTD (not reviewed) - declined influenza vaccine No Known Allergies Regular Medications: ??? FLUoxetine (PROZAC) 10 MG capsule Take 10 mg by mouth once daily ??? FLUoxetine (PROZAC) 20 MG capsule TK WITH PROZAC 10 MG QD FOR 30 DAYS ??? norethin-eth estradiol-FE (11/22) 1-20 MG-MCG tablet take 1 tablet by oral route every day REVIEW OF SYSTEMS General: weight gain Allergic/immunologic: no seasonal allergic symptoms Hematologic/lymphatic: no swollen nodes Eyes: wears eye glasses for reading ENT: no hearing or dental problems Skin: no rash Respiratory: no cough, shortness of breath, or wheezing Cardiovascular: no palpitations Gastrointestinal: no heartburn Genitourinary: no polyuria, polydipsia; nocturia once nightly; menarche occurred at age 13 yr, menses are irregular; LMP one week ago Endocrine: no fatigue or temperature intolerance Musculoskeletal: no joint pain, warmth or swelling. Psychiatric: treated for depression; formerly saw counselor Neurologic: no headaches or tremors Physical Examination: Ht 1.661 m (5' 5.39 ) Wt 128.6 kg (283 lb 8.2 oz) LMP 08/18/2018 (Approximate) BMI 46.61 kg/m2 >99 %ile (Z= 2.67) based on CDC 2-20 Years wdwchh-lvn-dyq data using vitals from 08/25/2018. 69 %ile (Z= 0.50) based on CDC 2-20 Years uwkwnxy-hli-qnd data using vitals from 08/25/2018. Body mass index is 46.61 kg/(m^2). >99 %ile (Z= 2.56) based on CDC 2-20 Years BMI-for-age data using vitalsfrom 08/25/2018. Body surface area is 2.44 meters squared. General: awake, alert, nondistressed-appearing, girl Head: normocephalic/atraumatic Eyes: Conjugate gaze; PERRLA with EOMI Ears: Normally-shaped and positioned. Mouth: Hard/soft palates intact; dentition is not carious. 12-year molars have erupted Neck: supple without thyromegaly. Chest: symmetric and breath sounds are clear bilaterally. Heart: RRR without murmur. Abdomen: soft, nontender, without organomegaly. Skin: normal texture/turgor without birthmarks Sexual maturation: genitalia T.S. V Extremities: Straight and without deformity. Neurological exam: Symmetric and nonfocal. Laboratory data: Hospital Encounter on 08/25/18 HEMOGLOBIN A1C - POCT (IP) BEAKER Result Value Ref Range Hemoglobin A1c POCT 6.7 (Abnormal) 3.4 - 6.1 % QC Verified Yes Yes Discussion: Brandie Torres is a 17 y.o. 9 m.o. girl referred for evaluation of an elevated hemoglobin A1c level which in our laboratory today is consistent with diabetes mellitus, most likely type2. I recommended the below noted follow up studies to confirm this. I recommended twice daily home glucose monitoring and increasing her daily exercise to promote weight loss. She met with our diabetes nurse educator to review home glucose monitoring and our chairman & chief executive officer today. I'll follow up by telephone with today's test results when they are completed. If today's studies are consistent with type 1 diabetes mellitus, she'll return for more intensive education and discussion of insulin injections. Assessment and Management Plan: Elevated hemoglobin A1c 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 Obtain prior laboratory results 2. Orders Placed This Encounter ??? COMPREHENSIVE METABOLIC PANEL Standing Status: Standing Number of Occurrences: 1 ??? C-PEPTIDE Standing Status: Standing Number of Occurrences: 1 ??? GLUTAMIC ACID DECARBOXYLASE (DIANA) ANTIBODY Standing Status: Standing Number of Occurrences: 1 ??? IA-2 ANTIBODY Standing Status: Standing Number of Occurrences: 1 ??? ISLET CELL ANTIBODY Standing Status: Standing Number of Occurrences: 1 ??? LIPID PROFILE Standing Status: Standing Number of Occurrences: 1 ??? MICROALB/CREAT RATIO URINE RANDOM PANEL Standing Status: Standing Number of Occurrences: 1 ??? HEMOGLOBIN A1C - POCT (IP) BEAKER Standing Status: Standing Number of Occurrences: 1 2. Dietary/exercise counseling (outpatient clinical dietary consultation) 3. Measure/record blood glucose level twice daily 4. Return visit in two months. Follow Up: Return in about 2 months (around 10/25/2018). Deandre Vázquez MD [phone] CC: Christine Peterson MD [address] [place] [phone] Date: 08/25/2018 10:16 AM documented in this encounter Consult Notes * Marilyn Herring, RD/LD - 08/25/2018 11:28 AM CDT 08/25/2018 Diabetes Clinical Nutrition Assessment Brandie Torres is a 17 y.o. 9 m.o. female seen in diabetes clinic for annual nutrition assessment The encounter diagnosis was Hemoglobin A1c above reference range. Past Medical History: Diagnosis Date ??? Anxiety treated with Prozac ??? Obesity 05/17/2011 Anthropometrics: Weight: 283 lb 8.2 oz (128.6 kg) >99 %ile (Z= 2.67) based on CDC 2-20 Years gywcxj-dpc-wxf data using vitals from 08/25/2018. Height: 5' 5.39 (166.1 cm) 69 %ile (Z= 0.50) based on CDC 2-20 Years mfldeqj-fju-vtx data using vitals from 08/25/2018. Body mass index is 46.61 kg/(m^2). >99 %ile (Z= 2.56) based on CDC 2-20 Years BMI-for-age data using vitals from 08/25/2018. Wt Readings from Last 3 Encounters: 08/25/18 283 lb 8.2 oz (128.6 kg) (>99 %, Z= 2.67)* 05/22/16 258 lb 2.5 oz (117.1 kg) (>99 %, Z= 2.84)* 05/17/11 146 lb 2.6 oz (66.3 kg) (>99 %, Z= 2.89)* * Growth percentiles are based on CDC 2-20 Years data. Note, weight gain of 11.5 kg in one year Recent Labs Component Name 08/25/18 0932 HGBA1C 6.7* Medications: Current Outpatient Prescriptions Medication ??? FLUoxetine (PROZAC) 10 MG capsule ??? FLUoxetine (PROZAC) 20 MG capsule ??? norethin-eth estradiol-FE (11/22) 1-20 MG-MCG tablet ??? blood glucose (IVAN CONTOUR NEXT TEST) test strip ??? Lancets (MICROLET) MISC No current facility-administered medications for this encounter. Food and nutrition related history: Brandie Torres was accompanied by her father in clinic. She is working at [employer], lives with her mother, step father and two step siblings and going to school. She typically skips breakfast due to time, has salad and chocolate milk for school lunch; has highly processed frozen convenience meal for after school snack and dinner can be fast food 5 nights per week or home cooked meal twice per week. She admits to spending $20 per week on fast food, complaining of the cost of healthier fast food options and willingness to prepare more meals from scratch. Pt has PE class every day. Brandie was attentive and receptive to the nutrition information presented in clinic. Estimated Needs: KCAL: 1800 kcal/day (BELÉN-1000) Nutrition Care Process (1) Nutrition Diagnostic Statement: Food and nutrition knowledge deficit related to:: lack of prior exposure to information regarding carbohydrates or diet appropriate for diabetes as evidenced by:: new medical diagnosis Nutrition Intervention: Nutrition Education - Content Reviewed food sources of basic nutrients, its effect on blood glucose level and insulin resistance in BG control. Provided verbal and written information on My Plate information with emphasis on nutrient dense food choices and portion control using My Plate diagram. Discussed budget friendly meal planning, preparation. Provided menu ideas, grocery list and stop light diet guidelines Evaluation: Nutrition Goal: Food/Nutrition information can be demonstrated Plate meals based on My Plate diagram: half plate with fresh fruit, fresh vegetables Incorporate 2 breakfast and 2 dinner meals per week Consume only zero calorie beverages, milk or yogurt with every meal Nutrition Goal Timeframe: Ongoing Nutrition Goal Progress: New goal established Marilyn Herring RD/HENNY 30 minutes have been spent in providing nutrition counseling and education. Pt verbalized understanding of the plan and anticipate moderate compliance. Follow up with RD next clinic visit documented in this encounter Plan of Treatment Not on file documented as of this encounter Procedures Procedure Name Priority Date/Time Associated Diagnosis Comments IA-2 ANTIBODY Routine 08/25/2018 11:20 AM CDT Hemoglobin A1c above reference range MICROALB/CREAT RATIO URINE RANDOM PANEL Routine 08/25/2018 11:20 AM CDT Hemoglobin A1c above reference range ISLET CELL ANTIBODY Routine 08/25/2018 1 1:20 AM CDT Hemoglobin A1c above reference range C-PEPTIDE Routine 08/25/2018 11:20 AM CDT Hemoglobin A1c above reference range GLUTAMIC ACID DECARBOXYLASE (DIANA) ANTIBODY Routine 08/25/2018 11:20 AM CDT Hemoglobin A1c above reference range COMPREHENSIVE METABOLIC PANEL Routine 08/25/2018 11:20 AM CDT Hemoglobin A1c above reference range LIPID PROFILE Routine 08/25/2018 11:20 AM CDT Hemoglobin A1c above reference range HEMOGLOBIN A1C - POCT (IP) BEAKER Routine 08/25/2018 9:32 AM CDT Hemoglobin A1c above reference range documented in this encounter Results * MICROALB/CREAT RATIO URINE RANDOM PANEL (08/25/2018 11:20 AM CDT) Creatinine Urine 202.40 mg/dL 08/25/20 18 12:54 PM CDT [facility] Microalbumin Urine 0.7 <1.7 mg/dL 08/25/2018 12:54 PM T [facility] Microalbumin/Crea tinine Ratio 3 <30 mg/g 08/25/2018 12:54 PM T [facility] Urine URINE SPECIMEN OBTAINED BY CLEAN CATCH PROCEDURE / Unknown Collection / Unknown 08/25/2018 11:20 AM CDT 08/25/2018 12:08 PM CDT Deandre Vázquez MD LAB - URINE CHEMISTR Y ORDERABLES Performing Organization Address City/State/[facility] Co de Phone Number [facility] [address] [place] [phone] * LIPID PROFILE (08/25/2018 11:20 AM CDT) Cholesterol 157 <170 mg/dL 08/25/2018 12:51 PM CDT [facility] Triglycerides 88 46 - 227 mg/dL 08/25/2018 12:51 PM CDT [facility] HDL Cholesterol 46 >40 mg/dL 8 12:51 PM T [facility] LDL Calculated 93 <100 mg/dL 08/25/2018 12:51 PM T [facility] VLDL Calculated 18 12 - 38 mg/dL 08/25/2018 12:51 PM T [facility] Chol HDL Ratio 3.4 <=5.0 08/25/2018 12:51 PM T [facility] Blood BLOOD SPECIMEN / Unknown Lab Venipuncture / Unknown 08/25/2018 11:20 AM CDT 08/25/2018 12:09 PM CDT Narrative [facility] - 08/25/2018 12:51 PM CDT Lipid Profile Comment: Adult references ranges are the recommendation of the [place] [employer] , for those patients >18 [...] MEGGAN DE LOS SANTOS Performing Organization Address City/[facility] Co de Phone Number [facility] [address] [place], [place] [id number] * ISLET CELL ANTIBODY (08/25/2018 11:20 AM CDT) [facility] Antipancreatic Islet Cells Negative Neg:<1:1 08/26/2018 5:10 PM CDT [facility] Blood BLOOD SPECIMEN / Unknown Lab Venipuncture / Unknown 08/25/2018 11:20 AM CDT 08/25/2018 12:09 PM CDT Narrative [facility] - 08/26/2018 5:10 PM CDT Performed at: ??01 - [facility] [address] ??[id number] Medical Technologist Prn: Rio Quach MD, Phone: ??[phone] Deandre Vázquez MD LAB - SEROLOGY ORDER BEAU Performing Organization Address City/[facility] Co de Phone Number [facility] [address] [place] [address] * IA-2 ANTIBODY (08/25/2018 11:20 AM CDT) Insulinoma Associated 2 Antibody <1.0 U/mL 08/29/2018 4:10 PM CDT [facility] Comment: Reference Range: <1.0 ?Negative > or = 1.0 ??Positive Blood BLOOD SPECIMEN / Unknown Lab Venipuncture / Unknown 08/25/2018 11:20 AM CDT 08/25/2018 12:09 PM CDT Narrative [facility]) - 08/29/2018 4:10 PM CDT Performed at: ??01 - [facility] [address] [place] [address] ??[id number] Medical Technologist Prn: Nicolas Cotton MD, Phone: ??[phone] Deandre Vázquez MD LAB - SEROLOGY ORDER BEAU Performing Organization Address [facility] de Phone Number [facility] ([facility]) [address] [place] [address] * GLUTAMIC ACID DECARBOXYLASE (DIANA) ANTIBODY (08/25/2018 11:20 AM CDT) DIANA-65 Antibody <5.0 0.0 - 5.0 U/mL 08/27/2018 4:22 PM CDT [facility] Blood BLOOD SPECIMEN / Unknown Lab Venipuncture / Unknown 08/25/2018 11:20 AM CDT 08/25/2018 12:09 PM CDT Narrative [facility]) - 08/27/2018 4:22 PM CDT Performed at: ??01 - [facility] ??[id number] Medical Technologist Prn: Rio Quach MD, Phone: ??[phone] Deandre Vázquez MD LAB - SEROLOGY ORDER BEAU Performing Organization Address City/[facility] Co de Phone Number [facility] ([facility]) [address] [place] [address] * (ABNORMAL) C-PEPTIDE (08/25/2018 11:20 AM CDT) C-Peptide 3.36(H) 0.78 - 1.89 ng/mL 08/25/2018 3:35 PM CDT [facility] Blood BLOOD SPECIMEN / Unknown Lab Venipuncture / Unknown 08/25/2018 11:20 AM CDT 08/25/2018 12:09 PM CDT Deandre Vázquez MD LAB - CHEMISTRY MEGGAN DE LOS SANTOS [facility] Organization Address City/State/ZIP Co de Phone Number [facility] [address] [place], [place] [phone] * (ABNORMAL) COMPREHENSIVE METABOLIC PANEL (08/25/2018 11:20 AM CDT) Glucose 113(H) 70 - 105 mg/dL 08/25/2018 12:51 PM CDT [facility] Sodium 139 136 - 145 mmol/L 08/25/2018 12:51 PM T [facility] Potassium 4.0 3.5 - 5.1 mmol/L 08/25/2018 12:51 PM T [facility] Chloride 103 98 - 107 mmol/L 08/25/2018 12:51 PM T [facility] CO2 28 20 - 28 mmol/L 08/25/2018 12:51 PM T [facility] Calcium 9.96 9.08 - 10.48 mg/dL 08/25/2018 12:51 PM T [facility] Anion Gap 8 5 - 20 mmol/L 08/25/2018 12:51 PM T [facility] BUN 13.2 5.3 - 18.7 mg/dL 08/25/2018 12:51 PM T [facility] Creatinine 0.70 0.61 - 1.07 mg/dL 08/25/2018 12:51 PM T [facility] Alkaline Phosphatase 98(L) 100 - 390 U/L 08/25/2018 12:51 PM T [facility] ALT 24 8 - 65 U/L 08/25/2018 12:51 PM CDT [facility] AST 19 3 - 35 U/L 08/25/2018 12:51 PM T [facility] Protein Total 7.5 6.3 - 8.2 gm/dL 08/25/2018 12:51 PM T [facility] Albumin 4.1 3.3 - 4.9 gm/dL 08/25/2018 12:51 PM T [facility] Bilirubin Total 0.7 0.3 - 1.2 mg/dL 08/25/2018 12:51 PM CDT [facility] eGFR by MDRD mL/min/1.7 3m2 08/25/2018 12:51 PM CDT [facility] Comment: eGFR calculations are not performed for children under 18 years old. eGFR by MDRD mL/min/1.7 3m2 08/25/2018 12:51 PM CDT [facility] Comment: eGFR calculations are not performed for children under 18 years old. Blood BLOOD SPECIMEN / Unknown Lab Venipuncture / Unknown 08/25/2018 11:20 AM CDT 08/25/2018 12:09 PM CDT Deandre Vázquez MD LAB - CHEMISTRY MEGGAN DE LOS SANTOS Performing Organization Address City/[facility]/ZIP Co de Phone Number [facility] [address] [place] [address] * (ABNORMAL) HEMOGLOBIN A1C - POCT () DILIA (08/25/2018 9:32 AM CDT) Hemoglobin A1c POCT 6.7(A) 3.4 - 6.1 % [facility] QC Verified Yes Yes [facility] PO CT TESTING Blood BLOOD SPECIMEN / Unknown 08/25/2018 9:32 AM CDT Deandre Vázquez MD LAB - POINT OF CARE ORDERABLES Performing Organization Address City/[facility] Co de Phone Number [facility] [address] [phone] documented in this encounter Visit Diagnoses Diagnosis Hemoglobin A1c above reference range Other abnormal blood chemistry * Assessment & Plan Note - Deandre Vázquez MD - 08/25/2018 10:09 AM CDTAssociated Problem(s): Elevated hemoglobin A1c (Resolved 03/26/2021) 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 Obtain prior laboratory results 2. Orders Placed This Encounter ??? COMPREHENSIVE METABOLIC PANEL Standing Status: Standing Number of Occurrences: 1 ??? C-PEPTIDE Standing Status: Standing Number of Occurrences: 1 ??? GLUTAMIC ACID DECARBOXYLASE (DIANA) ANTIBODY Standing Status: Standing Number of Occurrences: 1 ??? IA-2 ANTIBODY Standing Status: Standing Number of Occurrences: 1 ??? ISLET CELL ANTIBODY Standing Status: Standing Number of Occurrences: 1 ??? LIPID PROFILE Standing Status: Standing Number of Occurrences: 1 ??? MICROALB/CREAT RATIO URINE RANDOM PANEL Standing Status: Standing Number of Occurrences: 1 ??? HEMOGLOBIN A1C - POCT (IP) BEAKER Standing Status: Standing Number of Occurrences: 1 2. Dietary/exercise counseling (outpatient clinical dietary consultation) 3. Measure/record blood glucose level twice daily 4. Return visit in two months. documented in this encounter Care Teams Commercial Baking Teacher Relationship Specialty Start Date End Date Christine Peterson MD [address] [phone] PCP - General Pediatrics 07/29/18 documented as of this encounter
--- OUTSIDE RECORDS SUMMARY | 2024-11-10 05:57 | XMS_ITS | Encounter Summary ---
Author Organization [facility] Address [address] [place] [address] Care Team Providers Care Speech Coach Name Role Phone Christine Peterson MD Primary Care Provider [phone] Encounter Details Date Type Department Care Team (Late st Contact Info) Description 08/21/2018 Orders Only [facility] Pediatrics - Diabetes Mgmt [address] [place] [phone] Deandre Vázquez MD [address] [place] [phone] Hemoglobin A1c above reference range Social History Tobacco Use Types Packs/Day Years [...] on file documented as of this encounter Results * (ABNORMAL) HEMOGLOBIN A1C - POCT (IP) DILIA (08/25/2018 9:32 AM CDT) Hemoglobin A1c POCT 6.7(A) 3.4 - 6.1 % [facility] POCT TESTING QC Verified Yes Yes [facility] PO CT TESTING Blood BLOOD SPECIMEN / Unknown 08/25/2018 9:32 AM CDT Deandre Vázquez MD LAB - POINT OF CARE ORDERABLES [facility] [address] [phone] documented in this encounter Visit Diagnoses Diagnosis Hemoglobin A1c above reference range- Primary Other abnormal blood chemistry documented in this encounter Care Teams Speech Coach Relationship Specialty Start Date End Date Christine Peterson MD [address] [phone] PCP - General Pediatrics 07/29/18 documented as of this encounter
--- OUTSIDE RECORDS SUMMARY | 2024-11-10 05:57 | XMS_ITS | Encounter Summary ---
Author Organization [facility] Healthcare Address [address] [place] [address] Care Team Providers Care Software Test Manager Name Role Phone Uriel Walker MD Primary Care Provider [phone] Reason for Referral * Consultation (Routine) - Closed Specialty Diagnoses / Procedures Referred By Contac t Referred To Contact Physical Therapy Diagnoses Acute bilateral low back pain without sciatica Uriel Walker MD [address] [place] [address] Phone: tel: fax: External Order Referral ID Status Reason Start Date Expiration Date V isits Requested Visits Authorized [id number] Closed Evaluate and Treat 07/15/2024 08/14/2025 24 24 Question Answer PTRFR PT Evaluate and Treat Therapy options discussed with patient? Yes Location provided for therapy services is: Patient requested/Patient preferred Please select the performing region: External Order [171] # of visits: 24 Comments [facility] Reason for Visit * Reason Onset Date Comments Test Results 07/12/2024 Encounter Details Date Type Department Care Team (Late st Contact Info) Description 07/12/2024 Telephone [facility] [address] [facility] [address] Uriel Walker MD [address] [place] [address] Test Results Social History Tobacco Use Types Packs/Day [...] on file Legal Sex Female 1:53 AM TRAUMA MANAGER Gender Identity Female 11/22/2020 12:52 PM TRAUMA MANAGER Sexual Orientation Straight 11/22/2020 12 :52 PM TRAUMA MANAGER documented as of this encounter Miscellaneous Notes * Telephone Encounter - May Reyes MA - 07/15/2024 9:07 AM CDT Pt aware, and ask for the PT to be at [facility] as its close to her home Thanks * Telephone Encounter - May Reyes MA - 07/14/2024 9:54 AM CDT Please review MRI results and advise on next steps, Thanks * Telephone Encounter - Ana Laird - 07/14/2024 9:50 AM CDT Call Back Caller???s Concern: Pt calling back as she has not heard back from anyone with question of if she will need physical therapy and/or pain management from MRI results Pt requesting a return call Does message need to be routed? Yes-Action Needed * Telephone Encounter - May Reyes MA - 07/12/2024 2:35 PM CDT Please review MRI and advise on next steps, Thanks * Telephone Encounter - Maria Teresa Bethea - 07/12/2024 1:08 PM CDT Test Result Request Type of test: MRI Lumbar Spine Date of test: patient said she had this a week or two ago Where was the test performed at?[facility] Did provider dictate result yet? No Additional Questions/Comments: -she is asking what next steps are. She is wondering if she will need physical therapy and/or pain management Does message need to be routed? Yes-Action Needed documented in this encounter Plan of Treatment Scheduled Referrals Name Type Priority Associated Diagnoses Order Schedule Ambulatory referral order to Physical Therapy - Outpatient Referral Routine Acute bilateral low back pain without sciatica Expected: 07/29/2024 (Approximate), Expires: 07/15/2025 documented as of this encounter Visit Diagnoses Diagnosis Acute bilateral low back pain without sciatica- Primary documented in this encounter Care Teams Software Test Manager Relationship Specialty Start Date End Date Uriel Walker MD [address] [place] [address] PCP - General Family Medicine 02/23/19 documented as of this encounter
--- OUTSIDE RECORDS SUMMARY | 2024-11-10 05:57 | XMS_ITS | Encounter Summary ---
Author Organization [facility] Address [address] [place] [address]. [place] [address] [place] [address] Care Team Providers Care Hearing And Speech Assistant Name Role Phone Dinorah Lydia Hobbs NP Primary Care Provider [phone] Encounter Details Date Type Department Care Team (Late st Contact Info) Description 06/12/2021 Orders Only [facility] [address] [place] [address] [facility] [address] [place] [address] Social History Tobacco Use Types Packs/Day Years [...] documented as of this encounter Results * RHOGAM CANDIDACY (06/12/2021 3:22 PM CDT) MOM'S RHOGAM STATUS PATIENT IS AN RH IMMUNE GLOBULIN CANDIDATE 06/12/2021 4:22 PM CDT [facility] Comment: CALLED RESULT RAVI BARLOW @[id number] BY KYUNG READ BACK AND VERIFIED 06/12/2021 3:22 PM CDT Rowan Teague [facility] TEST ORDERABLES F inal Result Performing Organization Address City/[facility]/ZIP Co de Phone Number [facility] [address] [place] [address], [place] [phone] * BLOOD TYPING, ABO AND RH (06/12/2021 3:22 PM CDT) ABO/RH O NEGATIVE 06/12/2021 4:19 PM CDT [facility] 06/12/2021 3:22 PM CDT Rowan L Zahida [facility] BLOOD B[facility] TEST ORDERABLES F inal Result Performing Organization Address [place]/[facility] de Phone Number [facility] [address] [place] [address], [place] [phone] documented in this encounter Visit Diagnoses Diagnosis screening encounter ([facility] Primary Unspecified screening documented in this encounter Care Teams Hearing And Speech Assistant Relationship Specialty Start Date End Date Lydia Copeland NP PCP - General NURSE PRACTITIONER 06/26/20 04/25/22 documented as of this encounter
--- OUTSIDE RECORDS SUMMARY | 2024-11-10 05:57 | XMS_ITS | Encounter Summary ---
Author Organization [facility] Address [address] [place] [address] Care Team Providers Care Border Inspector Name Role Phone Uriel Walker MD Primary Care Provider [phone] Reason for Referral * Consultation (Routine) - Closed Specialty Diagnoses / Procedures Referred By Contac t Referred To Contact Physical Therapy Diagnoses Sciatica without lumbago, right Uriel Walker MD [address] [place] [address] Phone: tel: fax: External Order Referral ID Status Reason Start Date Expiration Date V isits Requested Visits Authorized [id number] Closed Evaluate and Treat 05/07/2024 06/06/2025 24 24 Question Answer PTRFR PT Evaluate and Treat Therapy options discussed with patient? Yes Location provided for therapy services is: Patient requested/Patient preferred Please select the performing region: External Order [171] # of visits: [address] [facility]. Reason for Visit * Reason Comments Follow-up This is a telemedici ne visit for follow up from [facility] on 05/03 for low back pain that was radiating down to her right calf which made her leg feel tight like it was wrapped up.She was told she had a bulging disc and gave 2 different injections, Cyclobenzaprine & Tramadol. Encounter Details Date Type Department Care Team (Late st Contact Info) Description 05/07/2024 9:45 AM CDT [facility] [address] [place] [address] Uriel Walker MD [address] [facility] [place] [address] Sciatica without lumbago, right (Primary Dx); Morbid obesity with BMI of 45.0-49.9, adult (HCC); BMI 45.0-49.9, adult (HCC) Social History Tobacco Use Types Packs/Day Years Used Date Smoking Tobacco: Every Day E-cigarettes Smokeless Tobacco: Former Chew Tobacco Cessation:Ready to Q uit: No; Counseling Given: Not Answered Alcohol Use Standard [...] on file Legal Sex Female 1:53 AM PROFILER Gender Identity Female 11/22/2020 12:52 PM PROFILER Sexual Orientation Straight 11/22/2020 12 :52 PM PROFILER documented as of this encounter Last Filed Vital Signs Vital Sign Reading Time Taken Comments Blood Pressure - - Pulse - - Temperature - - Respiratory Rate - - Oxygen Saturation - - Inhaled Oxygen Concentration - - Weight 134.7 kg (297 lb) 05/07/2024 10:00 AM CDT Height 165.1 cm (5' 5 ) 05/07/2024 10:00 AM CDT Body Mass Index 49.42 05/07/2024 10:00 AM CDT documented in this encounter Ordered Prescriptions Prescription Sig Dispense Quantity Refills Last Filled Start Date End Date methylPREDNISolone (MEDROL DOSEPACK) 4 mg Dosepack Take as directed on package. 21 tablet 05/07/2024 4 documented in this encounter Progress Notes * Uriel Walker MD - 05/07/2024 9:45 AM CDT Images from the original note were not included. [facility] Brandie Torres Chief Complaint. Chief Complaint Patient presents with Follow-up This is a telemedicine visit for follow up from [place] [facility] on 05/03 for low back pain that was radiating down to her right calf which made her leg feel tight like it was wrapped up. She was told she had a bulging disc and gave 2 different injections, Cyclobenzaprine & Tramadol. HPI. Patient is a 23 y.o. female This was a telemedicine visit with Brandie Torres alone which took place via real-time video connection. During the visit, I was located in the office and the patient was located at home in the formerly [facility] [place]. The patient visit started at 1000 and ended at 1012. My total encounter time on 05/07/2024 was 18 minutes which was spent in the activities documented in the note. This includes time spent prior to the visit and after the visit in direct care of the patient. This time does not include time spent in any separately reportable services. I have explained the option of participating in a telemedicine visit to the patient. After being given an opportunity to ask questions about and discuss this type of visit, the patient verbally consented to proceeding with the telemedicine visit. The patient understands that this service replaces an office visit and they may be billed and/or responsible for any applicable copayments. A guest was not included in this video visit. [facility] Back pain since age 14 but no prior intervetnions. Has responded to PT in the past. NO b/b incontinece. No falls. Patient continues to deal with pain but improved with muscle relaxantand tramadol. No imaging at the ER. No new trauma. Past Medical History: Diagnosis Date Anxiety Diabetes mellitus (HCC) Fatty liver disease, nonalcoholic 05/03/2016 Hx of migraine headaches Hypertension Morbid obesity with BMI of 40.0-44.9, adult (HCC) Seasonal allergies Past Surgical History: Procedure Laterality Date TONSILECTOMY, ADENOIDECTOMY, BILATERAL MYRINGOTOMY AND TUBES HOME MEDICATIONS : blood glucose diagnostic (glucose blood) strip blood-glucose meter misc cyclobenzaprine (FLEXERIL) 10 mg tablet lancets misc metFORMIN (GLUCOPHAGE) 500 mg tablet traMADoL (ULTRAM) 50 mg tablet methylPREDNISolone (MEDROL DOSEPACK) 4 mg Dosepack Ozempic 0.25 mg or 0.5 mg (2 mg/3 mL) pen injector injection blood-glucose meter misc semaglutide 0.25 mg or 0.5 mg (2 mg/3 mL) pen injector injection No Known Allergies Social History Tobacco Use Smoking status: Every Day Types: E-cigarettes Smokeless tobacco: Former Types: Chew Substance and Sexual Activity Drug use: Never Sexual activity: Not Currently Partners: Male control/protection: I.U.D. Alcohol Use: Not At Risk (04/26/2022) [facility] Frequency of Alcohol Consumption: Never Average Number of Drinks: Patient does not drink Frequency of Binge Drinking: Never Family History Problem Relation Age of Onset Diabetes Mother Diabetes mellitus; Kidney failure Mother Heart attack Mother Early Mother Kidney disease Mother Clotting disorder Mother Hypertension Father Hypertension; Asthma Father Review of Systems: Review of Systems Constitutional: Negative for activity change, fatigue and fever. HENT: Negative for postnasal drip and rhinorrhea. Respiratory: Negative for chest tightness, shortness of breath and wheezing. Cardiovascular: Negative for chest pain and leg swelling. Gastrointestinal: Negative for abdominal pain, blood in stool, constipation, diarrhea, nausea and vomiting. Genitourinary: Negative for dysuria, hematuria and urgency. Musculoskeletal: Positive for back pain and gait problem. Negative for myalgias and neck pain. Skin: Negative for rash. Neurological: Negative for dizziness, tremors, weakness, light-headedness and headaches. Hematological: Negative for adenopathy. Psychiatric/Behavioral: Negative for sleep disturbance and suicidal ideas. The patient is not nervous/anxious. Ht 165.1 cm (5' 5 ) Wt 134.7 kg (297 lb) BMI 49.42 kg/m?? Physical Exam: Physical Exam Assessment & Plan: Diagnoses and all orders for this visit: Sciatica without lumbago, right (Primary) - XR Spine Lumbar Complete 4 Or More; Future - Ambulatory referral order to Physical Therapy -; Future Reivewed back pain and sciatica history. WIll continue to montior with plain film imaging and referral to PT. If fails to response to addition of medrol would follow response. COntinue to follow resopnse. Other orders - methylPREDNISolone (MEDROL DOSEPACK) 4 mg Dosepack; Take as directed on package. BMI Follow-up includes: nutrition counseling and exercise counseling. Body mass index is 49.42 kg/m??. Uriel Walker MD documented in this encounter Plan of Treatment Scheduled Orders Name Type Priority Associated Diagnoses Orde r Schedule XR Spine Lumbar Complete 4 Or More Imaging Schedule Routine, Read Routine (OP Routine) Sciatica without lumbago, right Expected: 05/07/2024, Expires: 05/07/2025 Scheduled Referrals Name Type Priority Associated Diagnoses Order Schedule Ambulatory referral order to Physical Therapy - Outpatient Referral Routine Sciatica without lumbago, right Expected: 05/21/2024 (Approximate), Expires: 05/07/2025 documented as of this encounter Visit Diagnoses Diagnosis Sciatica without lumbago, right- Primary Morbid obesity with BMI of 45.0-49.9, adult (HCC) BMI 45.0-49.9, adult (HCC) documented in this encounter Discontinued Medications Medication Sig Discontinue Reason Start Date End Da te semaglutide 0.25 mg or 0.5 mg (2 mg/3 mL) pen injector injectionIndications:T ype 2 diabetes mellitus with hyperglycemia, without long-term current use of insulin (HCC) Inject 0.25 mg under the skin every 7 days Alternate therapy 09/09/2023 05/07/2024 blood-glucose meter misc Use daily or as directed for monitoring of diabetes. Alternate therapy 08/01/2023 05/07/2024 documented as of this encounter Historical Medications * This list may reflect changes made after this encounter. traMADoL (ULTRAM) 50 mg tablet Take 1 tablet (50 mg total) by mouth daily 05/04/2024 cyclobenzaprine (FLEXERIL) 10 mg tablet Take 1 tablet (10 mg total) by mouth 3 (three) times a day 05/04/2024 added in this encounter Care Teams Border Inspector Relationship Specialty Start Date End Date [place] [address] PCP - General Family Medicine 02/23/19 documented as of this encounter
--- OUTSIDE RECORDS SUMMARY | 2024-11-10 05:57 | XMS_ITS | Encounter Summary ---
Author Organization [facility] Health Address [address] [place] [address] Care Team Providers Care Electric Cutter Operator Name Role Phone Christine Peterson MD Primary Care Provider [phone] Encounter Details Date Type Department Care Team (Latest Contact Info) Description 05/01/2021 Travel Social History Tobacco Use Types Packs/Day Years Used Date Smoking Tobacco: Never Smokeless Tobacco: Never Alcohol Use Standard Drinks/Week Comments Not Asked 0 (1 standard drink = 0.6 oz pur e alcohol) Comments Yes Sex and Gender Information Value Date Recorded Sex Assigned at Not on file Gender Identity Not on file Sexual Orientation Not on file COVID-19 Exposure Response Date Recorded In the last month, have you been in contact with someone who was confirmed or suspected to have Coronavirus / COVID-19? No / Unsure 05/01/2021 4:09 PM CDT documented as of this encounter Plan of Treatment Not on file documented as of this encounter Visit Diagnoses Not on filedocumented in this encounter Care Teams Electric Cutter Operator Relationship Specialty Start Date End Date Christine Peterson MD [address] [id number] PCP - General Pediatrics 07/29/18 documented as of this encounter
--- OUTSIDE RECORDS SUMMARY | 2024-11-10 05:57 | XMS_ITS | Encounter Summary ---
Author Organization [facility] Healthcare Address [address] [place] [address] Care Team Providers Care Health Promotion Manager Name Role Phone Uriel Walker MD Primary Care Provider [phone] Reason for Visit * Reason Onset Date Comments Appointment Request 06/10/2024 Encounter Details Date Type Department Care Team (Late st Contact Info) Description 06/10/2024 Telephone [facility] [address] [place] [address] Uriel Walker MD [address] [place] [address] Appointment Request Social History Tobacco Use Types Packs/Day Years [...] on file Legal Sex Female 1:53 AM POWERPLANT OPERATOR Gender Identity Female 11/22/2020 12:52 PM POWERPLANT OPERATOR Sexual Orientation Straight 11/22/2020 12 :52 PM POWERPLANT OPERATOR documented as of this encounter Miscellaneous Notes * Telephone Encounter - Nilda Alejo 06/10/2024 4:38 PM CDT Scheduled for Friday 06/15 * Telephone Encounter - Gemma Rincon - 06/10/2024 3:01 PM CDT Appointment Request What visit type does the patient need? Visit Type: Video Return What is the reason for the visit? Follow up What is the reason we were unable to schedule the appointment? Current appointment availability didnot meet patient's need. Next availability 07.09 If applicable, were all members of the patient's PCP care team offered (e.g., nurse practioner(s), physician press assistant(s)) ? Yes Additional Comments: Patient calling in says she is needing follow up visit for PT, says she will be re-evaluated on 06.16 and would like appointment some time next week if possible. Does message need to be routed? Yes-Action Needed documented in this encounter Plan of Treatment Not on file documented as of this encounter Visit Diagnoses Not on filedocumented in this encounter Care Teams Health Promotion Manager Relationship Specialty Start Date End Date Uriel Walker MD [address] [place] [address] PCP - General Family Medicine 02/23/19 documented as of this encounter
--- OUTSIDE RECORDS SUMMARY | 2024-11-10 05:57 | XMS_ITS | Encounter Summary ---
Author Organization [facility] Address [address] [place] [address] Care Team Providers Care Hat Sprayer Name Role Phone Christine Peterson MD Primary Care Provider [phone] Reason for Referral * Consult, Test & Treat (Routine) - Closed Specialty Diagnoses / Procedures Referred By Geraldo low Referred To Contact Cardiology Diagnoses Family history of congenital heart defect Diet controlled gestational diabetes mellitus (GDM) in second trimester (HCC) Encounter for supervision of normal first in second trimester (HCC) Procedures ECHO CONSULT - Lacey Stiles MD 1031 [facility] [address] [place] [address] [address] Referral ID Status Reason Start Date Expiration Date Visits Re quested Visits Authorized [id number] Closed 03/28/2021 03/28/2022 1 1 Reason for Visit * Reason Comments Ultrasound Encounter Details Date Type Department Care Team (Latest Contact Info) Description 03/27/2021 11:05 AM CDT - 03/27/2021 11:59 PM CDT Hospital Encounter [facility] Women's Health Maternal & Care [address] [place], [place] [id number] Lacey Stiles MD [address] [address] Gulshan Barnes MD Discharge Disposition: Home or [...] Date /Time ECHO CONSULT - ECHO Routine Family history of congenital heart defect Diet controlled gestational diabetes mellitus (GDM) in second trimester ([facility]) Encounter for supervision of normal first in second trimester ([facility]) 02/12/2022 12:49 PM CDT documented as of this encounter Procedures Procedure Name Priority Date/Time Associated Diagnosis Comments SONOGRAM - COMPLETE Routine 03/27/2021 1 1:29 AM CDT Family history of congenital heart defect Diet controlled gestational diabetes mellitus (GDM) in second trimester ([facility]) Encounter for supervision of normal first in second trimester ([facility]) documented in this encounter Results * SONOGRAM - COMPLETE (03/27/2021 11:29 AM CDT) Anatomical Region Laterality Modality Other 03/27/2021 11:2 9 AM CDT Narrative 03/27/2021 12:58 PM CDT ? [facility] Maternal Medicine ? Maternal & Care Center ?PHONE: ??FAX: Pat. Name: ?BRANDIE TORRES. No: ?[id number] Study Date: ?? 03/27/2021 ??11:29am , Age: ? 2000, 20 Pregnancies: ?? 1 Height: ? 64 in Weight: ? 289 lb LMP: ?2020 GA by LMP: ?19w1d GA by US: ? 18w5d ?? KYLEE: 08/23/2021 GA Selected: ??19w1d (LMP) KYLEE: ?08/20/2021 Referring MD: Funmi Padilla MD [employer] Operations Staff Officer: ??Samia Reynolds RDMS CPT4: ? 61809,20930 BMI: ?49.6 Hist/Ind: ? Anatomy Screen ?FOB-HLHS ?GDM ?Class III Obesity (BMI 49) MEASUREMENTS & AGE ? GROWTH EVALUATION Measurement ??GA ? Range ? Srce %for GA Ratios ----- ---- ------- BPD ??4.3 cm 19w0d (75v5u-02b6e) Hadl BPD 43% FL/BPD 0.64 HC ??15.0 cm 18w0d (64k1z-34i0i) Hadl HC ??6% FL/AC ??0.20 AC ??13.7 cm 19w1d (54r7o-54j7z) Hadl AC ??48% HC/AC ??1.09 (1.06 - 1.25) FL ?? 2.8 cm 18w3d (99s1e-62n9e) Hadl FL ??20% CI ? 0.85 (0.70 - 0.86) HL ?? 2.9 cm 19w3d (71b8n-46i8c) Jose HL ??55% Cere 1.9 cm 18w6d (96j0s-83q3b) Hill Cere43% GA for sonogram 18w5d (32q0b-02t3d) ?? Weight Estimate: based on (BPD,HC,AC,FL) Avg ?Weight: 256 gm (218-293gm) Hadloc ? : 0lbs, 9oz ? Normal: 279 gm (209-348gm) Hadloc ? Wt% ? 27% for 19w1d Cervix: ??Length: 3.1 cm ??Approach: transvaginal Heart Rate: 164 bpm Amniotic Fluid Index: 04.9cm (Deepest Pocket) EVAL, PLACENTA Presentation: breech Umbilical Cord: 3 Vessels Placenta: posterior Heart Rate: 164 bpm Amniotic Fluid Volume: normal Anatomy!Normal!Abnormal!Suboptimal!Prev. Seen!Comments Cranium ?! ?! ?! ? x ?! ?! Mdl (CSP/Thal! ?? x ??! ?! ?! ?! Ventricles ?? ! ?! ?! ? x ?! ?! Choroid Plexu! ?! ?! ? x ?! ?! Cerebellum ?? ! ?? x ??! ?! ?! ?! Cerebellar Ve! ?! ?! ? x ?! ?! Cisterna M. ??! ?? x ??! ?! ?! ?! Nuchal Fold ??! ?? x ??! ?! ?! ?! Orbits ? ! ?? x ??! ?! ?! ?! Profile ?! ?? x ??! ?! ?! ?! Nasal Bone ?? ! ?? x ??! ?! ?! ?! Maxilla ?! ?? x ??! ?! ?! ?! Mandible ? ! ?? x ??! ?! ?! ?! Neck ? ! ?! ?! ? x ?! ?! Spine ?! ?! ?! ? x ?! ?! Lungs ?! ?! ?! ? [...] ?! ? x ?! ?! Diaphragm ?! ?? x ??! ?! ?! ?! Stomach ?! ?? x ??! ?! ?! ?! Liver ?! ?! ?! ? x ?! ?! Bowel ?! ?? x ??! ?! ?! ?! Kidneys ?! ?? x ??! ?! ?! ?! Bladder ?! ?? x ??! ?! ?! ?! 3 Vessel Cord! ?? x ??! ?! ?! ?! Cord In! ?? x ??! ?! ?! ?! Upper Extremi! ?! ?! ? x ?! ?!unremarkable ?right, suboptimal ?left Hands ?! ?! ?! ? x ?! ?! Lower Extremi! ?! ?! ? x ?! ?! External Pretty! ?? x ??! ?! ?! ?!Male Placental Cor! ?! ?! ? x ?! ?! CLINICAL SUMMARY Study Number: 1 ?? A single fetus is seen in breech presentation. ??The measurements today are consistent with appropriate size for the KYLEE provided. ??The KYLEE is based on LMP and a prior ultrasound. ??The amniotic fluid volume is within normal limits. ?? The anatomy was limited by challenging maternal acoustic properties and position. ?? IMPRESSION: Single, live intrauterine at 19w1d ?? size is consistent with established KYLEE ?? Amniotic fluid volume: within normal limits ?? Reassuring transvaginal cervical length ?? No major malformations were seen within the limitations of ultrasound. ?? No evidence of a fibroid was seen. RECOMMEND: Ultrasound in 4 weeks for growth and follow up anatomy as per table above. ?? ECHO Thank you for allowing us they opportunity to care for your patient. ?? Gulshan Barnes MD <Electronic Signature> ??03/27/2021 12:58pm Funmi Padilla MD [facility] ORDERABLES documented in this encounter Visit Diagnoses Diagnosis Family history of congenital heart defect- Primary Family history of congenital anomalies Gestational diabetes mellitus (GDM) in second trimester, gestational diabetes method of control unspecified (HCC) Encounter for supervision of normal first in second trimester (HCC) Supervision of normal first 19 weeks gestation of (HCC) state, incidental documented in this encounter Care Teams Hat Sprayer Relationship Specialty Start Date End Date Christine Peterson MD 2 [facility] [address] [place] [id number] PCP - General Pediatrics 07/29/18 documented as of this encounter
--- OUTSIDE RECORDS SUMMARY | 2024-11-10 05:57 | XMS_ITS | Encounter Summary ---
Author Organization [facility] Address [address] [place] [address]. [place] [address] [place] [address] Care Team Providers Care District Fire Chief Name Role Phone Dinorah Lydia Hobbs NP Primary Care Provider [phone] Encounter Details Date Type Department Care Team (Late st Contact Info) Description 06/12/2021 Orders Only [facility] [address] [place] [address] [facility] [address] [place] [address] Social History Tobacco Use Types [...] documented as of this encounter Results * ANTIBODY SCREEN (06/12/2021 3:22 PM CDT) ANTIBODY SCREEN NEGATIVE 06/12/2021 4:20 PM CDT [facility] () [facility] 06/12/2021 3:22 PM CDT Rowan PULLIAM BLOOD B[facility] TEST ORDERABLES F inal Result [facility] [address] [place] [address], documented in this encounter Visit Diagnoses Diagnosis screening encounter ([facility])- Primary Unspecified screening documented in this encounter Care Teams District Fire Chief Relationship Specialty Start Date End Date Lydia Copeland NP PCP - General NURSE PRACTITIONER 06/26/20 04/25/22 documented as of this encounter
--- OUTSIDE RECORDS SUMMARY | 2024-11-10 05:57 | XMS_ITS | Encounter Summary ---
Author Organization [facility] Address [address] [place] [address] Care Team Providers Care Monument Carver Name Role Phone Uriel Walker MD Primary Care Provider [phone] Reason for Referral * MRI/CAT/PET Scan (Routine) - Pending Review Specialty Diagnoses / Procedures Referred By Contac t Referred To Contact Radiology Diagnoses Acute right-sided low back pain with right-sided sciatica Procedures MRI Lumbar Spine WO Contrast Uriel Walker MD [address] [place] [address] Phone: tel: fax: [address] [address] Referral ID Status Reason Start Date Expiration Date V isits Requested Visits Authorized [id number] Pending Review 06/16/2024 07/16/2025 1 1 Encounter Details Date Type Department Care Team (Late st Contact Info) Description 06/15/2024 11:15 AM CDT Telemedicine [facility] Primary Care at [address] [address] Uriel Walker MD [address] [place] [address] Acute right-sided low back pain with right-sided sciatica (Primary Dx) Social History Tobacco Use Types [...] on file 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 [facility] Brandie Torres Chief Complaint. No chief complaint on file. HPI. Patient is a 23 y.o. female This was a telemedicine visit with Brandie Torres alone which took place via real-time video connection. During the visit, I was located in the office and the patient was located at home in the state [facility]. The patient visit started at 1119 and ended at 1130. My total encounter time on 06/15/2024was 18 minutes which was spent in the activities documented in the note. This includes time spent pr ior to the visit and after the visit in direct care of the patient. This time does not include timespent in any separately reportable services. I have [...] was not included in this video visit. Dyllan has now completed approx 6 weeks of conservative therapy with PT. 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 Dyllan with partial response to PT and medrol. Still with perisstent pain along the right sided sciatica sypmtoms. No change in bowel/bladder function. Back Pain This is a chronic problem. The current episode started more than 1 month ago. The problem occurs daily. The problem is unchanged. The pain is present in the gluteal, lumbar spine and sacro-iliac. Thequality of the pain is described as aching, burning and stabbing. The pain radiates to the right knee. The pain is at a severity of 6/10. The pain is Worse during the day. The symptoms are aggravatedby bending, position, standing and twisting. Stiffness is present In the morning. Pertinent negatives include no abdominal pain, chest pain, dysuria, fever, headaches or weakness. Risk factors include obesity and recent trauma. Past Medical History: Diagnosis Date Anxiety Diabetes mellitus (HCC) Fatty liver disease, nonalcoholic 05/03/2016 Hx of migraine headaches Hypertension Morbid obesity with BMI of 40.0-44.9, adult (HCC) Seasonal allergies Past Surgical History: Procedure Laterality Date TONSILECTOMY, ADENOIDECTOMY, BILATERAL MYRINGOTOMY AND TUBES HOME MEDICATIONS : blood glucose diagnostic (glucose blood) strip blood-glucose meter [facility] cyclobenzaprine (FLEXERIL) 10 mg tablet lancets misc metFORMIN (GLUCOPHAGE) 500 mg tablet Ozempic 0.25 mg or 0.5 mg (2 mg/3 mL) pen injector injection traMADoL (ULTRAM) 50 mg tablet No Known Allergies Social History Tobacco Use Smoking status: Every Day Types: E-cigarettes Smokeless tobacco: Former Types: Chew Substance and Sexual Activity Drug use: Never Sexual activity: Not Currently Partners: Male control/protection: I.U.D. Alcohol Use: Not At Risk (04/26/2022) Received from [facility] Frequency of Alcohol Consumption: Never Average [...] diarrhea, nausea and vomiting. Genitourinary: Negative for dysuria and hematuria. Musculoskeletal: Positive for arthralgias and back pain. Negative for myalgias and neck pain. Neurological: Negative for dizziness, tremors, weakness, light-headedness and headaches. Psychiatric/Behavioral: Negative for sleep disturbance and suicidal ideas. There were no vitals taken for this visit. Physical Exam: Physical Exam Assessment & Plan: Diagnoses and all orders for this visit: Acute right-sided low back pain with right-sided sciatica (Primary) Patient with persistent right sided low back pain and radiation into the right lower extremity and will now proceed with MRI of the lumbar spine to better characterized anatomy. BMI Follow-up includes: nutrition counseling and exercise counseling. There is no height or weight on file to calculate BMI. Uriel Walker MD documented in this encounter Plan of Treatment Not on file documented as of this encounter Results * MRI Lumbar Spine WO Contrast (07/02/2024 7:44 AM CDT) Anatomical Region Laterality Modality Spine N/A Magnetic Resonan ce Uriel Walker MD IMG MRI PROCEDURES Final Result documented in this encounter Visit Diagnoses Diagnosis Acute right-sided low back pain with right-sided sciatica- Primary documented in this encounter Care Teams Monument Carver Relationship Specialty Start Date End Date [place] [address] PCP - General Family Medicine 02/23/19 documented as of this encounter
--- OUTSIDE RECORDS SUMMARY | 2024-11-10 05:57 | XMS_ITS | Encounter Summary ---
Author Organization [facility] Address [address] [place] [address] Care Team Providers Care Assistant County Engineer Name Role Phone Christine Peterson MD Primary Care Provider [phone] Encounter Details Date Type Department Care Team (Late st Contact Info) Description 03/28/2021 Orders Only [facility] Maternal & Care [address] [place], [place] [id number] Antonieta Rose RN Social History Tobacco Use Types Packs/Day Years [...] on filedocumented in this encounter Care Teams Assistant County Engineer Relationship Specialty Start Date End Date Christine Peterson MD [address] [phone] PCP - General Pediatrics 07/29/18 documented as of this encounter
--- OUTSIDE RECORDS SUMMARY | 2024-11-10 05:57 | XMS_ITS | Encounter Summary ---
Author Organization [facility] Address [address] [place] [address] Care Team Providers Care Washer And Crusher Tender Name Role Phone Christine Peterson MD Primary Care Provider [phone] Reason for Referral * Consult, Test & Treat (Routine) - Closed Specialty Diagnoses / Procedures Referred By Contac t Referred To Contact Cardiology Diagnoses Diet controlled gestational diabetes mellitus (GDM) in second trimester (HCC) Family history of congenital heart defect Procedures ECHO CONSULT - Ion Garcia MD [address] [address] [address] Referral ID Status Reason Start Date Expiration Date Visits Re quested Visits Authorized [id number] Closed 04/24/2021 04/24/2022 1 1 * Consult, Test & Treat (Routine) - Closed Specialty Diagnoses / Procedures Referred By Contteresita t Referred To Contact Cardiology Diagnoses Family history of congenital heart defect Diet controlled gestational diabetes mellitus (GDM) in second trimester (HCC) Encounter for supervision of normal first in second trimester (HCC) Procedures ECHO CONSULT - Lacey Stiles MD [address] [address] [facility] [employer] [address] [place] [address] Referral ID Status Reason Start Date Expiration Date Visits Re quested Visits Authorized [id number] Closed 03/28/2021 03/28/2022 1 1 Reason for Visit * Consult, Test & Treat (Routine) - Closed Specialty Diagnoses / Procedures Referred By Contteresita t Referred To Contact Cardiology Diagnoses Diet controlled gestational diabetes mellitus (GDM) in second trimester (HCC) Family history of congenital heart defect Procedures ECHO CONSULT - Ion Garcia MD [address] [address] [facility] [address] [place] [address] Referral ID Status Reason Start Date Expiration Date Visits Re quested Visits Authorized [id number] Closed 04/24/2021 04/24/2022 1 1 Encounter Details Date Type Department Care Team (Latest Contact Info) Description 06/07/2021 11:22 AM CDT - 06/07/2021 4:57 PM CDT Hospital Encounter [facility] at [address] [address] Reina Yang MD [address] [place] [id number] Discharge Disposition: Home or Self Care Social [...] 06/27/2017 06/13/2021 documented as of this encounter Progress Notes * Reina Yang MD - 06/07/2021 12:28 PM CDT Images from the original note were not included. Echocardiogram and Consultation Date: 06/07/2021 : Walter Referring Physician: Dr. Lentz Dear Dr. Lentz: I had the pleasure of seeing your patient, Brandie Torres, for echocardiographic evaluation and consultation on 06/07/2021. Indications for echocardiogram include a history of family history of congenital heart disease. The father of the baby has hypoplastic left heart syndrome and waspre[facility]. Mom also developed gestational diabetes during the . The following clinical information was available at the time of the evaluation: Maternal Age: [age] year old Gestational Age: 29w3d Estimated Date of Delivery: 08/20/21 History : Complications of the : Gestational diabetes Maternal Medical History: None Medications: vitamins, baby aspirin Social History: Here with father of baby, delivery site to be determined Family History of Congenital Heart Disease: Yes Previous Ultrasound: normal Abnormal HeartTones: none detected A complete 2-D, pulse wave and color Doppler echocardiogram was performed. The quality of thestudy was technically adequate. 2-D Findings: Visceroatrial situs solitus with levocardia. The systemic venous return was normal. There was atrioventricular and ventriculoarterial concordance. The right atrium and left atrium appeared normal size. There was a patent foramen ovale which bowed from right to left. The mitral valve and tricuspid valves were morphologically normal. The right and left ventricles were normal size for gestational age with normal wall thickness and normal systolic function. The ventricular septum appeared intact. The great vessels were normally related. The branch pulmonary arteries were confluent. A ductal arch was identified. The aortic arch appeared normal. No pericardial or pleural effusion. Doppler Examination: There was normal mitral and tricuspid inflow patterns with a dominant A wave and smaller E wave. No mitral or tricuspid insufficiency. There was normal laminar flow across the aortic and pulmonary valves. There was normal jirlr-we-otih shunting across the ductus arteriosus in systole with a small amount in diastole. There was normal flow pattern in the transverse aortic arch.No arrhythmia was detected. IMPRESSION: Normal echocardiogram. RECOMMENDATIONS: I reviewed the findings of today's echocardiogram with the mother and fatherof the baby. I reassured them that there are no identified cardiac malformations on today's study, but that minor defects, such as small muscular VSDs or minor valve defects, could still be present postnatally. Based on the findings today, no further cardiology follow-up is needed unless new concerns or symptoms arise. Thank you again for allowing us to participate in the care of this patient. If you have any furtherquestions, please do not hesitate to contact me at . In general, echocardiography has an excellent sensitivity and specificity. However, certain heart lesions cannot be diagnosed in the fetus as they are a normal part of the circulation, e.g. secundum atrial septal defects and patent ductus arteriosus. Other congenital heart lesions that have proven difficult to diagnose in a fetus include coarctation of the aorta, total or partial anomalous pulmonary venous return, small ventricular septal defects, and coronary anomalies. Nor can we predict late gestation myocarditis or arrhythmias later in life such as Dlazl-Uihketjbs-Jqypg syndrome. Total time spent was 45 minutes including reviewing diagnostic imaging, counseling regarding findings and limitations, and documentation. Sincerely, Reina Yang MD documented in this encounter Plan of Treatment Pending Results Name Type Priority Associated Diagnoses Date /Time ECHO CONSULT - ECHO Routine Family history of congenital heart defect Diet controlled gestational diabetes mellitus (GDM) in second trimester ([facility]) Encounter for supervision of normal first in second trimester ([facility]) 02/12/2022 12:49 PM CDT ECHO CONSULT - ECHO Routine Diet controlled gestational diabetes mellitus (GDM) in second trimester ([facility]) Family history of congenital heart defect 03/07/2022 1:52 PM CDT documented as of this encounter Procedures Procedure Name Priority Date/Time Associated Diagnosis Comments ECHO CONSULT - Routine 06/07/2021 11:34 AM CDT Family history of congenital heart defect documented in this encounter Results * ECHO CONSULT - (06/07/2021 11:34 AM CDT) 06/07/2021 11:3 4 AM CDT Narrative Procedure Note Reina Yang MD - 06/11/2021 [facility] [place] [phone] Fax Echocardiogram Report Pat.Name: FRANK BRANDIE M Pat.ID: [id number] .Date: 06/07/2021 Refer.MD: Reina Yang Exam Time: 11:34:00 AM Study Type: Echo Age: 1 2000,20Y Sex: FEMALE Sonogrphr: Tita Peterson RDCS Pat. Stat.:Outpatient CPT - 4: 13058, 90253, 366[address] Reason for Study: Suspected Cardiac Abnormality, FOB [...] Yang MD Reina Yang MD ECHO ORDERABLES Performing Organization Address City/State/[facility] Co de Phone Number [facility] [address] [place] [address] documented in this encounter Visit Diagnoses Diagnosis Family history of congenital heart defect- Primary Family history of congenital anomalies Diet controlled gestational diabetes mellitus (GDM) in second trimester ([facility]) Encounter for supervision of normal first in second trimester ([facility]) Supervision of normal first documented in this encounter Care Teams Washer And Crusher Tender Relationship Specialty Start Date End Date Christine Peterson MD [address] [phone] PCP - General Pediatrics 07/29/18 documented as of this encounter
--- OUTSIDE RECORDS SUMMARY | 2024-11-10 05:57 | XMS_ITS | Encounter Summary ---
Author Organization 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 * Telephone Encounter - May Reyes MA - 08/17/2024 7:27 AM CDT Can you get pt scheduled with Gerri for a video visit, Thanks * Telephone Encounter - May Reyes MA - 08/16/2024 1:31 PM CDT Are you willing to do a video visit, Thanks * Telephone Encounter - Jennyfer Fonseca, ALIS - 08/16/2024 12:47 PM CDT Pt reported severe to moderate lower right side back pain radiating down right leg. Seen in UC and told she had sciatica and was given a shot and pain medication and directions to follow up with her PCP. Current pain level 3/10. Denied bowel or bladder control issues, fever, chills, sweats, or vomiting. Declined office visit. Pt is requesting a video visit due to transportation and none found per SDA guideline. Routed to PCP's clinical group. Reason for Disposition Pain radiates into the thigh or further down the leg, and in both legs Protocols used: Back [id number] * Telephone Encounter - Jennyfer Fonseca, ALIS - 08/16/2024 12:29 PM CDT Regarding: Severe to moderate lower right side back pain. ----- Message from Denilson Souza sent at 08/16/2024 12:22 PM CDT ----- Symptom Based Call Chief Complaint(s): Severe to moderate lower right side back pain. Duration: Started on 08/11/24 What type of symptom(s) is the patient experiencing? Red Flag. Is the patient concerned they are experiencing a medical emergency requiring an ambulance? No Additional Comments: Patient visited ER at [facility] on 07/14/24 for sciatica pain. Next available appointment at the practice is 08/25/24. Does message need to be routed? Yes-Action Needed documented in this encounter Plan of Treatment Not on file documented as of this encounter Visit Diagnoses Not on filedocumented in this encounter Care Teams Nutter Up Relationship Specialty Start Date End Date Uriel Walker MD [address] [place] [address] PCP - General Family Medicine 02/23/19 documented as of this encounter
--- OUTSIDE RECORDS SUMMARY | 2024-11-10 05:57 | XMS_ITS | Encounter Summary ---
Author Organization [facility] Healthcare Address [address] [place] [address] Care Team Providers Care Accounting Manager Cpa Name Role Phone Uriel Walker MD Primary Care Provider [phone] Encounter Details Date Type Department Care Team (Late st Contact Info) Description 07/02/2024 Orders Only [facility] [address] [facility] [place] [address] Uriel Walker MD [address] [place] [address] Acute right-sided low back pain with right-sided sciatica Social History Tobacco Use Types Packs/Day Years [...] on file 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 Gender Identity Female 11/22/2020 12:52 PM PULLMAN CAR REPAIRER Sexual Orientation Straight 11/22/2020 12 :52 PM PULLMAN CAR REPAIRER documented as of this encounter Plan of Treatment Not on file documented as of this encounter Procedures Procedure Name Priority Date/Time Associated Diagnosis Comments MRI LUMBAR SPINE WO CONTRAST Schedule Routine, Read Routine (OP Routine) 07/02/2024 7:44 AM CDT Acute right-sided low back pain with right-sided sciatica documented in this encounter Results * MRI Lumbar Spine WO Contrast (07/02/2024 7:44 AM CDT) Anatomical Region Laterality Modality Spine N/A Magnetic Resonan ce Uriel Walker MD IM MRI PROCEDURES Final Result documented in this encounter Visit Diagnoses Diagnosis Acute right-sided low back pain with right-sided sciatica documented in this encounter Care Teams Accounting Manager Cpa Relationship Specialty Start Date End Date Uriel Walker MD [address] [place] [address] PCP - General Family Medicine 02/23/19 documented as of this encounter
--- OUTSIDE RECORDS SUMMARY | 2024-11-10 05:57 | XMS_ITS | Encounter Summary ---
Author Organization [facility] Address [address] [place] [address] Care Team Providers Care Jewelry Manager Name Role Phone Christine Peterson MD Primary Care Provider [phone] Reason for Visit * Reason Onset Date Comments MEDICATION REFILL 08/25/2018 Encounter Details Date Type Department Care Team (Late st Contact Info) Description 08/25/2018 Refill [facility] Pediatrics - Diabetes [address] [address] Deandre Vázquez MD [address] [place] [address] MEDICATION REFILL Social History Tobacco Use Types Packs/Day Years [...] on filedocumented in this encounter Care Teams Jewelry Manager Relationship Specialty Start Date End Date Christine Peterson MD [address] [address] PCP - General Pediatrics 07/29/18 documented as of this encounter
--- OUTSIDE RECORDS SUMMARY | 2024-11-10 05:57 | XMS_ITS | Encounter Summary ---
Author Organization [facility] Address [address] [place] [address] Care Team Providers Care Flexographic Press Operator Name Role Phone Uriel Walker MD Primary Care Provider [phone] Reason for Referral * Consultation (Routine) - Closed Specialty Diagnoses / Procedures Referred By Contac t Referred To Contact Pain Management Diagnoses Sciatica without lumbago, right Gerri Trevino NP [address] [place] [address] Phone: tel: fax: [facility] Pain Management at [address] [address] Phone: tel: fax: Referral ID Status Reason Start Date Expiration Date V isits Requested Visits Authorized [id number] Closed Specialty Services Required 08/17/2024 09/16/2025 1 1 Question Answer Please select the performing region: [facility] [[id number]] Please select the performing department: [facility] [[id number]] # of visits: 1 Comments Sciatica on R side with sever pain. Reason for Visit * Reason Comments Back Pain Pt experiencing keyona re low back pain. Pt also experiencing R hip pain that goes down leg. Pt states that this has been going on since April or May. Med Refill Pt needing a refill of ozempic and metformin Review Medications Pt wants to make mohini e that it is okay to take the tramadol and cyclobenzaprine with the metformin and ozempic. Encounter Details Date Type Department Care Team (Late st Contact Info) Description 08/17/2024 11:00 AM CDT Telemedicine [facility] [address] [place] [address] Gerri Trevino NP [address] [place] [address] Sciatica without lumbago, right (Primary Dx); Type 2 diabetes mellitus with hyperglycemia, without long-term current use of insulin (HCC) Social History Tobacco Use Types Packs/Day [...] on file Legal Sex Female 1:53 AM PIERCER OPERATOR Gender Identity Female 11/22/2020 12:52 PM PIERCER OPERATOR Sexual Orientation Straight 11/22/2020 12 :52 PM PIERCER OPERATOR documented as of this encounter Last Filed Vital Signs Vital Sign Reading Time Taken Comments Blood Pressure - - Pulse - - Temperature - - Respiratory Rate - - Oxygen Saturation - - Inhaled Oxygen Concentration - - Weight 134.7 kg (297 lb) 08/17/2024 10:54 AM CDT Height 165.1 cm (5' 5 ) 08/17/2024 10:54 AM CDT Body Mass Index 49.42 08/17/2024 10:54 AM CDT documented in this encounter Ordered Prescriptions Prescription Sig Dispense Quantity Refills Last Filled Start Date End Date semaglutide (Ozempic) 0.25 mg or 0.5 mg (2 mg/3 mL) pen injector injectionIndicatio ns:Type 2 diabetes mellitus with hyperglycemia, without long-term current use of insulin (HCC) Take 0.5 mg by mouth once a week 3 mL 08/17/2024 metFORMIN (GLUCOPHAGE) 500 mg tabletIndications: Type 2 diabetes mellitus with hyperglycemia, without long-term current use of insulin (HCC) Take 1 tablet (500 mg total) by mouth 2 (two) times a day with meals 60 tablet 11 08/17/2024 5 methylPREDNISolone (MEDROL DOSEPACK) 4 mg DosepackIndication s:Sciatica without lumbago, right Take as directed on package. 21 tablet 08/17/2024 4 documented in this encounter Progress Notes * Gerri Trevino, DEREK - 08/17/2024 11:00 AM CDT Images from the original note were not included. Patient ID: Brandie Torres is a 23 y.o. female Chief Complaint. Chief Complaint Patient presents with Back Pain Pt experiencing severe low back pain. Pt also experiencing R hip pain that goes down leg. Pt statesthat this has been going on since April or May. Med Refill Pt needing a refill of ozempic and metformin Review Medications Pt wants to make sure that it is okay to take the tramadol and cyclobenzaprine with the metformin and ozempic. HPI: Brandie Torres presents today sciatica pain worsening and refill on medications. Brandie has been dealing with this ongoing R sided sciatica and lower back pain since April or May of this year. She was seen in the ER 08/13/2024 for severe pain, and she was given Tramadol and Cyclobenzaprine. She states the back pain is a little better, but she feels like the sciatica is not working. Brandie is in PT and has 4 visits left but still having pain. She has had x-rays, CTs, and MRIs in the past per patient. She states her last MRI was about a month prior. She has not done pain management in the past, and is willing to try anything to help relieve the pain. Brandie is not having manuel es in bowel or bladder, persistent numbness or tingling, loss of function in the lower extremities,or changes in ROM. Brandie states she needs her Ozempic and Metformin refilled as well. She states she stopped taking them for a while because she forgot, but she was losing weight with them. She is not having any side-effects at this time, and she would like to go back on her 0.5 mg dose for now. Past Medical History: Diagnosis Date Anxiety Diabetes mellitus (HCC) Fatty liver disease, nonalcoholic 05/03/2016 Hx of migraine headaches Hypertension Morbid obesity with BMI of 40.0-44.9, adult (HCC) Seasonal allergies Past Surgical History: Procedure Laterality Date TONSILECTOMY, ADENOIDECTOMY, BILATERAL MYRINGOTOMY AND TUBES HOME MEDICATIONS : blood glucose diagnostic (glucose blood) strip blood-glucose meter misc cyclobenzaprine (FLEXERIL) 10 mg tablet lancets misc traMADoL (ULTRAM) 50 mg tablet metFORMIN (GLUCOPHAGE) 500 mg tablet Ozempic 0.25 mg or 0.5 mg (2 mg/3 mL) pen injector injection metFORMIN (GLUCOPHAGE) 500 mg tablet methylPREDNISolone (MEDROL DOSEPACK) 4 mg Dosepack semaglutide (Ozempic) 0.25 mg or 0.5 mg (2 mg/3 mL) pen injector injection No Known Allergies Social History Tobacco Use Smoking status: Every Day Types: E-cigarettes Smokeless tobacco: Former Types: Chew Substance and Sexual Activity Drug use: Never Sexual activity: Not Currently Partners: Male control/protection: I.U.D. Alcohol Use: Not At Risk (04/26/2022) [facility] from [facility], [facility] AUDIT-C Frequency of Alcohol Consumption: Never Average Number of Drinks: Patient does not drink Frequency of Binge Drinking: Never Family History Problem Relation Age of Onset Diabetes Mother Diabetes mellitus; Kidney failure Mother Heart attack Mother Early Mother Kidney disease Mother Clotting disorder Mother Hypertension Father Hypertension; Asthma Father Review of Systems: Review of Systems Constitutional: Negative for chills and fever. Respiratory: Negative for shortness of breath. Cardiovascular: Negative for chest pain and leg swelling. Gastrointestinal: Negative for abdominal pain, blood in stool, constipation, nausea and vomiting. Genitourinary: Negative for difficulty urinating and hematuria. Musculoskeletal: Positive for back pain. Negative for gait problem. Neurological: Negative for weakness and numbness. Vitals: 08/17/24 1054 Weight: 134.7 kg (297 lb) Height: 165.1 cm (5' 5 ) Physical Exam: Physical Exam Constitutional: General: She is not in acute distress. Comments: Visit done via Telemedicine so PE is limited. HENT: Right Ear: External ear normal. Left Ear: External ear normal. Eyes: Extraocular Movements: Extraocular movements intact. Pupils: Pupils are equal, round, and reactive to light. Pulmonary: Effort: Pulmonary effort is normal. Musculoskeletal: Cervical back: Normal range of motion. Neurological: Mental Status: She is oriented to person, place, and time. Psychiatric: Mood and Affect: Mood normal. Behavior: Behavior normal. Thought Content: Thought content normal. Assessment/Plan Diagnoses and all orders for this visit: Sciatica without lumbago, right (Primary) Assessment & Plan: Medrol dose pack ordered and pain management referral placed. Will continue with PT and monitoring. Orders: - Ambulatory referral to Pain Management; Future - methylPREDNISolone (MEDROL DOSEPACK) 4 mg Dosepack; Take as directed on package. Type 2 diabetes mellitus with hyperglycemia, without long-term current use of insulin ([facility]) Assessment & Plan: Ozempic and metformin refilled. Orders: - metFORMIN (GLUCOPHAGE) 500 mg tablet; Take 1 tablet (500 mg total) by mouth 2 (two) times a day with meals - semaglutide (Ozempic) 0.25 mg or 0.5 mg (2 mg/3 mL) pen injector injection; Take 0.5 mg by mouth once a week All past family, medical, and social history were reviewed and updated in the EMR as well as current medications. Patient offered no further complaints and was in agreement with plan of care. Patientwas advised regarding dosage, use, and side effects of any new medications. Patient was advised to f/u in office with any worsening or little to no improvement of symptoms. Patient was advised to follow-up regarding the results of testing ordered in office today and that they should hear from us regarding the results in 2-3 business days, discussed benefits of MyChart in regard to patient experience. The patient was given the opportunity to have all questions answered today and was in agreementwith the plan of care. BMI Follow-up includes: nutrition counseling and exercise counseling. Body mass index is 49.42 kg/m??. Gerri Trevino NP Cosigned by Uriel Walker MD at 08/24/2024 8:19 AM CDT documented in this encounter Miscellaneous Notes * Assessment & Plan Note - Gerri Trevino NP - 08/17/2024 11:13 AM CDT Associated Problem(s): Sciatica without lumbago, right Medrol dose pack ordered and pain management referral placed. Will continue with PT and monitoring. * Assessment & Plan Note - Gerri Trevino NP - 08/17/2024 11:12 AM CDT Associated Problem(s): Type 2 diabetes mellitus with hyperglycemia, without long-term current use of insulin (HCC) Ozempic and metformin refilled. documented in this encounter Plan of Treatment Scheduled Referrals Name Type Priority Associated Diagnoses Order Schedule Ambulatory referral to Pain Management Outpatient Referral Routine Sciatica without lumbago, right Expected: 08/31/2024 (Approximate), Expires: 08/17/2025 documented as of this encounter Visit Diagnoses Diagnosis Sciatica without lumbago, right- Primary Type 2 diabetes mellitus with hyperglycemia, without long-term current use of insulin (HCC) documented in this encounter Discontinued Medications Medication Sig Discontinue Reason Start Date End Da te metFORMIN (GLUCOPHAGE) 500 mg tabletIndications:New onset type 2 diabetes mellitus (CMS/HCC) (HCC) Take 1 tablet (500 mg total) by mouth 2 (two) times a day with meals Reorder 06/06/2023 08/17/2024 Ozempic 0.25 mg or 0.5 mg (2 mg/3 mL) pen injector injectionIndications:Typ e 2 diabetes mellitus with hyperglycemia, without long-term current use of insulin (HCC) INJECT 0.5 MG ONCE WEEKLY E11.65 Reorder 02/09/2024 08/17/2024 documented as of this encounter Care Teams Flexographic Press Operator Relationship Specialty Start Date End Date Uriel Walker MD [address] [place] [address] PCP - General Family Medicine 02/23/19 documented as of this encounter
--- OUTSIDE RECORDS SUMMARY | 2024-11-10 05:57 | XMS_ITS | Encounter Summary ---
Author Organization [facility] Address [address] [place] [address] Care Team Providers Care Starting Gate Driver Name Role Phone Christine Peterson MD Primary Care Provider Encounter Details Date Type Department Care Team (Latest Contact Info) Description 08/25/2018 11:20 AM CDT - 08/25/2018 11:59 PM T Hospital Encounter [facility] - Lab [address] [place] [address] Deandre Vázquez MD [address] [place] [address] Discharge Disposition: Home or Self Care Social [...] Sig Dispensed Refills Start Date End Date Lancets (MICROLET) MISC Use 5-9 Each once daily Use to check blood sugar twice daily or as directed. 100 Each 11 08/25/2018 blood glucose (IVAN CONTOUR NEXT TEST) test strip Use to test blood sugar twice daily or as directed. 100 strip 11 08/25/2018 05/14/2022 FLUoxetine (PROZAC) 10 MG capsule Take 10 mg by mouth once daily 06/13/2021 FLUoxetine (PROZAC) 20 MG capsule TK WITH PROZAC 10 MG QD FOR 30 DAYS 06/27/2017 06/13/2021 norethin-eth estradiol-FE (11/22) 1-20 MG-MCG tablet take 1 tablet by oral route every day 03/17/2017 03/26/2021 documented as of this encounter Plan of Treatment Not on file documented as of this encounter Visit Diagnoses Not on filedocumented in this encounter Care Teams Starting Gate Driver Relationship Specialty Start Date End Date Christine Peterson MD [address] [address] PCP - General Pediatrics 07/29/18 documented as of this encounter
--- OUTSIDE RECORDS SUMMARY | 2024-11-10 05:57 | XMS_ITS | Encounter Summary ---
Author Organization [facility] Healthcare Address [address] [place] [address] Care Team Providers Care Sales Account Specialist Name Role Phone Uriel Walker MD Primary Care Provider [phone] Reason for Visit * Reason Onset Date Comments Forms Request 05/18/2024 Encounter Details Date Type Department Care Team (Late st Contact Info) Description 05/18/2024 Telephone [facility] [address] [place] [address] Uriel Walker MD [address] [place] [address] Forms Request Social History Tobacco Use Types Packs/Day [...] on file Legal Sex Female 1:53 AM HATCH BOSS Gender Identity Female 11/22/2020 12:52 PM HATCH BOSS Sexual Orientation Straight 11/22/2020 12 :52 PM HATCH BOSS documented as of this encounter Miscellaneous Notes * Telephone Encounter - Anaid Solano RN - 05/18/2024 3:53 PM CDT Letter sent to patient via [employer]. * Telephone Encounter - Fallon Maddox - 05/18/2024 2:09 PM CDT Forms Request Form requested: Other Form Form Name: Patient returned to work at [employer] on 05.17. Patient is asking for a letter stated exactly what aggravating activity she should avoid. 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 Patient How to return form to patient:pickup at practice Additional Comments: Patient is asking for a letter for her employer listing the aggravating activates she needs to avoid. Does message need to be routed? Yes-Action Needed documented in this encounter Plan of Treatment Not on file documented as of this encounter Visit Diagnoses Not on filedocumented in this encounter Care Teams Sales Account Specialist Relationship Specialty Start Date End [place] [address] PCP - General Family Medicine 02/23/19 documented as of this encounter
--- OUTSIDE RECORDS SUMMARY | 2024-11-10 05:57 | XMS_ITS | Encounter Summary ---
Author Organization [facility] Address [facility] [place] [address] [place] [address] Care Team Providers Care Decaler Name Role Phone Uriel Walker MD Primary Care Provider Reason for Visit * Reason Comments Hyperglycemia Encounter Details Date Type Department Care Team (Latest Contact Info) Description 04/26/2022 8:41 PM CDT - 04/26/2022 9:53 PM T Hospital Encounter [facility] [address] [facility] [place] [address] George Harp MD [address] [place] [address] Hyperglycemia Discharge Disposition: Home or Self Care (Routine [...] often do you attend chur ch or jain services? Never 04/26/2022 Do you belong to any clubs o r organizations such as rastafarian groups, unions, fraternal or athletic groups, or [...] and heating? Not hard at all 04/26/2022 [facility] of Occupat ional Health - Occupational Stress Questionnaire Answer Date [...] a residential (including now)? No 04/26/2022 Comments Yes Sex and Gender Information Value Date Recorded Sex Assigned at Female 04/26/2022 9:02 PM CDT Legal Sex Female 3:55 PM CDT Gender Identity Female 04/26/2022 9:02 PM CDT Sexual Orientation Straight 04/26/2022 9: 02 PM CDT COVID-19 Exposure Response Date Recorded In the last 10 days, have yo u been in contact with someone who was confirmed or suspected to have Coronavirus/COVID-19? No / Unsure 04/26/2022 8:37 PM CDT documented as of this encounter Last Filed Vital Signs Vital Sign Reading Time Taken Comments Blood Pressure 133/70 04/26/2022 8:58 PM CDT Pulse 106 04/26/2022 8:58 PM CDT Temperature - - Respiratory Rate - - Oxygen Saturation - - Inhaled Oxygen Concentration - - Weight - - Height - - Body Mass Index - - documented in this encounter Discharge Instructions * Attachments The following attachments cannot be sent through Care Everywhere. * Gestational Diabetes (Diabetes That Starts During ) (Irish) * Gestational Diabetes Discharge Instructions (Irish) documented in this encounter Medications at Time of Discharge insulin detemir 100 UNIT/ML flextouch PEN Inject 14 units every night. 04/18/2022 sertraline 50 MG tablet Take 50 mg by mouth daily. BAQSIMI ONE PACK 3 MG/DOSE Powder 04/19/2022 Glucagon (BAQSIMI ONE PACK) 3 MG/DOSE Powder 3 mg by Nasal route. 04/19/2022 documented as of this encounter Plan of Treatment Not on file documented as of this encounter Procedures Procedure Name Priority Date/Time Associated Diagnosis Comments GLUCOSE BLOOD, QNT STAT 04/26/2022 9: 23 PM CDT (HHS/HCC) POCT GLUCOSE - RODRIGUEZ DOCKED DEVICE Routine 04/26/2022 9:01 PM CDT HC URINALYSIS AUTO W/MICRO STAT 04/26/2022 8:50 PM CDT (HHS/HCC) documented in this encounter Results * (ABNORMAL) GLUCOSE BLOOD, QNT (04/26/2022 9:23 PM CDT) GLUCOSE 137(H) 70 - 99 MG/DL 04/26/2022 9:40 PM CDT [facility] Comment: FASTING GLUCOSE 100 TO 125 MG/DL IS CONSISTENT WITH IMPAIRED FASTING GLUCOSE. FASTING GLUCOSE >125 MG/DL IS CONSISTENT WITH DIABETES. RANDOM GLUCOSE >200 MG/DL WITH HYPERGLYCEMIC SYMPTOMS IS CONSISTENT WITH DIABETES. PER ADA GUIDELINES 04/26/2022 9:2 3 PM CDT us George Harp MD LABORATORY Final Result Performing Organization Address [facility]/ZIP Co de Phone Number [facility] [place] [address], * (ABNORMAL) POCT glucose (04/26/2022 9:01 PM CDT) GLUCOSE POC 116(H) 70 - 99 MG/DL 04/26/2022 9:03 PM CDT [facility] 04/26/2022 9:01 PM CDT us George Harp MD POCT ORDERABLES - DEVICE Jessenia l Result [facility] [place] [address], * (ABNORMAL) URINALYSIS (04/26/2022 8:50 PM CDT) COLOR (U) YELLOW 04/26/2022 9:15 PM CDT [facility] TRANSPARENCY CLEAR 04/26/2022 9:15 PM CDT [facility] SPECIFIC GRAVITY (U) 1.030(H) 1.000 - 1.025 04/26/2022 9:15 PM CDT [facility] Comment:EQUAL TO OR GREATER THAN U PH 5.5 5.0 - 8.0 04/26/2022 9:15 PM CDT [facility] LEUKOCYTES (U) NEGATIVE NEGATIVE 04/26/2022 9:15 PM CDT [facility] NITRITES NEGATIVE NEGATIVE 04/26/2022 9:15 PM CDT [facility] PROTEIN (U) 2+(A) NEGATIVE 04/26/2022 9:15 PM CDT [facility] URINE GLUCOSE TRACE(A) NEGATIVE 04/26/2022 9:15 PM CDT [facility] KETONES MG/DL (U) TRACE(A) NEGATIVE 04/26/2022 9:15 PM CDT [facility] UROBILINOGEN 0.2 <1.0 EU/DL 04/26/2022 9:15 PM CDT [facility] BLOOD (U) NEGATIVE NEGATIVE 04/26/2022 9:15 PM CDT [facility] WBC/HPF 0-5 0 - 5 /HPF 04/26/2022 9:15 PM CDT [facility] RBC/HPF 0-5 0 - 5 /HPF 04/26/2022 9:15 PM CDT [facility] EPI/HPF MODERATE /LPF 04/26/2022 9:15 PM CDT [facility] MUCUS PRESENT 04/26/2022 9:15 PM CDT [facility] BILIRUBIN (U) 1+(A) NEGATIVE 04/26/2022 9:15 PM CDT [facility] URINE SPECIMEN OBTAINED BY CLEAN CATCH PROCEDURE / Unknown 04/26/2022 8:50 PM CDT us George Harp MD URINE ORDERABLES Final Result [facility] [address] [place] [address], documented in this encounter Visit Diagnoses Diagnosis (HHS/HCC)- Primary state, incidental documented in this encounter Care Teams Decaler Relationship Specialty Start Date End Date Uriel Walker MD [address] [place] [address] PCP - General INTERNAL MEDICINE 04/26/22 documented as of this encounter
--- OUTSIDE RECORDS SUMMARY | 2024-11-10 05:57 | XMS_ITS | Encounter Summary ---
Author Organization [facility] Address [address] [place] [address]. [place], [place] [address] [place] [address] Care Team Providers Care Tipple Mechanic Name Role Phone Uriel Walker MD Primary Care Provider [phone] Encounter Details Date Type Department Care Team (Latest Contact Info) Description 04/26/2022 Travel Social History Tobacco Use Types Packs/Day [...] week 04/26/2022 How often do you attend [facility] or buddhist services? Never 04/26/2022 Do you belong to any clubs o r organizations such as buddhist groups, unions, fraternal or athletic groups, or [...] and heating? Not hard at all 04/26/2022 [facility] Occupat ional Health - Occupational Stress [...] place to sleep or slept in a longterm (including now)? No 04/26/2022 Comments Yes Sex [...] on filedocumented in this encounter Care Teams Tipple Mechanic Relationship Specialty Start Date End [place] [address] PCP - General INTERNAL MEDICINE 04/26/22 documented as of this encounter
--- OUTSIDE RECORDS SUMMARY | 2024-11-10 05:57 | XMS_ITS | Encounter Summary ---
Author Organization [facility] Healthcare Address [address] [place] [address] Care Team Providers Care Foster Care Worker Name Role Phone Uriel Walker MD Primary Care Provider [phone] Reason for Referral * Consultation (Routine) - Closed Specialty Diagnoses / Procedures Referred By Contac t Referred To Contact Physical Therapy Diagnoses Acute bilateral low back pain without sciatica rUiel Walker MD [address] [place] [address] Phone: tel: fax: [facility] [place] [address] [place] [address] Phone: tel: fax: Referral ID Status Reason Start Date Expiration Date V isits Requested Visits Authorized [id number] Closed Evaluate and Treat 07/14/2024 08/13/2025 24 24 Question Answer PTRFR PT Evaluate and Treat Therapy options discussed with patient? Yes Location provided for therapy services is: Patient requested/Patient preferred Please select the performing region: [facility] [[id number]] Please select the performing department: [facility] [[id number]] # of visits: 24 Encounter Details Date Type Department Care Team (Late st Contact Info) Description 07/14/2024 Orders Only [facility] [address] [place] [id number] Uriel Walker MD [address] [place] [address] Acute bilateral low back pain without sciatica (Primary Dx) Social History Tobacco Use [...] on file Legal Sex Female 1:53 AM OPTICAL LATHE OPERATOR Gender Identity Female 11/22/2020 12:52 PM OPTICAL LATHE OPERATOR Sexual Orientation Straight 11/22/2020 12 :52 PM OPTICAL LATHE OPERATOR documented as of this encounter Progress Notes * Uriel Walker MD - 07/14/2024 1:25 PM CDT Amb pt documented in this encounter Plan of Treatment Scheduled Referrals Name Type Priority Associated Diagnoses Order Schedule Ambulatory referral order to Physical Therapy - Outpatient Referral Routine Acute bilateral low back pain without sciatica Expected: 07/28/2024 (Approximate), Expires: 07/14/2025 documented as of this encounter Visit Diagnoses Diagnosis Acute bilateral low back pain without sciatica- Primary documented in this encounter Care Teams Foster Care Worker Relationship Specialty Start Date End Date Uriel Walker MD [address] [place] [address] PCP - General Family Medicine 02/23/19 documented as of this encounter
--- OUTSIDE RECORDS SUMMARY | 2024-11-10 05:57 | XMS_ITS | Encounter Summary ---
Author Organization [facility] Address [address] [place] [address]. [place], [place] [address] [place] [address] Care Team Providers Care Ms Sql Dba Name Role Phone Lydia Copeland [employer]ION [employer]IP Primary Care Provider [phone] Encounter Details Date Type Department Care Team (Latest Contact Info) Description 06/26/2020 Travel Social History Tobacco Use Types Packs/Day [...] on filedocumented in this encounter Care Teams Ms Sql Dba Relationship Specialty Start Date End Date Lydia Copeland NP PCP - General NURSE PRACTITIONER 06/26/20 04/25/22 documented as of this encounter
--- OUTSIDE RECORDS SUMMARY | 2024-11-10 05:58 | XMS_ITS | Encounter Summary ---
Author Organization [facility] Address [address] [facility] [address] [place] [address] Care Team Providers Care Volunteer Services Supervisor Name Role Phone Uriel Walker MD Primary Care Provider [phone] Encounter Details Date Type Department Care Team (Late st Contact Info) Description 07/25/2022 [facility] Only [facility] [address] [place] [address] Scanning, Provider Social History Tobacco Use Types Packs/Day Years Used Date Smoking Tobacco: Never Smokeless Tobacco: Never Alcohol Use Standard Drinks/Week Comments Never 0 (1 standard drink = 0.6 oz pur e alcohol) AUDIT-C Answer Date Recorded Frequency of Alcohol Consumption Never 07/13/2019 Average Number of Drinks Not on file 019 Frequency of Binge Drinking Not on file 07/04 PHQ-2 Answer Date Recorded PHQ-2 Total Score 0 06/26/2020 Comments Unknown Sex and Gender Information Value Date Recorded Sex Assigned at Not on file Legal Sex Female 1:53 AM ER TECH Gender Identity Female 11/22/2020 12:52 PM ER TECH Sexual Orientation Straight 11/22/2020 12 :52 PM ER TECH documented as of this encounter Plan of Treatment Not on file documented as of this encounter Procedures Procedure Name Priority Date/Time Associated Diagnosis Comments SCAN - LABS 07/25/2022 9:05 PM CDT documented in this encounter Results * SCAN - LABS (07/25/2022 9:05 PM CDT) us Provider Scanning Final Result documented in this encounter Visit Diagnoses Not on filedocumented in this encounter Care Teams Volunteer Services Supervisor Relationship Specialty Start Date End Date Uriel Walker MD [address] [place] [address] PCP - General Family Medicine 02/23/19 documented as of this encounter
--- OUTSIDE RECORDS SUMMARY | 2024-11-10 05:58 | XMS_ITS | Encounter Summary ---
Author Organization [facility] Healthcare Address [address] [place] [address] Care Team Providers Care Agent Name Role Phone Uriel Walker MD Primary Care Provider [phone] Reason for Visit * Reason Comments Follow-up 3 mo follow up Encounter Details Date Type Department Care Team (Late st Contact Info) Description 09/09/2023 10:00 AM SENIOR MARKETING SPECIALIST Office Visit [facility] [address] [place] [address] Roseann Galvan, DEREK [address] [place] [address] Type 2 diabetes mellitus with hyperglycemia, without long-term current use of insulin ([facility]/HCC) ([facility]) (Primary Dx); Tendinitis, de Quervain's; Acute right-sided low back pain with right-sided sciatica; Morbid obesity with BMI of 50.0-59.9, adult ([facility]) Social History Tobacco Use Types Packs/Day Years Used Date Smoking Tobacco: Never Smokeless Tobacco: Never Tobacco Cessation:Counseling Given: Not Answered Alcohol Use Standard Drinks/Week [...] points, staff should administer the PHQ-9) 0 09/09/2023 Comments Unknown Sex and Gender Information Value Date Recorded Sex Assigned at Not on file Legal Sex Female 1:53 AM SENIOR MARKETING SPECIALIST Gender Identity Female 11/22/2020 12:52 PM SENIOR MARKETING SPECIALIST Sexual Orientation Straight 11/22/2020 12 :52 PM SENIOR MARKETING SPECIALIST documented as of this encounter Last Filed Vital Signs Vital Sign Reading Time Taken Comments Blood Pressure 122/88 09/09/2023 10:00 AM SENIOR MARKETING SPECIALIST Pulse 96 09/09/2023 10:00 AM SENIOR MARKETING SPECIALIST Temperature 36.4 ??C (97.5 ??F) 09/09/2023 10:[address] Respiratory Rate 18 09/09/2023 10:00 AM SENIOR MARKETING SPECIALIST Oxygen Saturation 98% 09/09/2023 10:00 AM SENIOR MARKETING SPECIALIST Inhaled Oxygen Concentration - - Weight 136.1 kg (300 lb) 09/09/2023 10:00 AM SENIOR MARKETING SPECIALIST Height 165.1 cm (5' 5 ) 09/09/2023 10:00 AM SENIOR MARKETING SPECIALIST Body Mass Index 49.92 09/09/2023 10:00 AM SENIOR MARKETING SPECIALIST documented in this encounter Patient Instructions * Patient Instructions* Roseann Galvan NP - 09/09/2023 10:00 AM SENIOR MARKETING SPECIALIST Week 1 through week 4 : 0.25 mg once weekly. Week 5 through week 8: 0.5 mg once weekly. (Gave you a refill, but if tolerating after week 8, can plan to go right to 1mg). Week 9 through week 12: 1 mg once weekly. OR MARKETING SPECIALIST documented in this encounter Ordered Prescriptions Prescription Sig Dispense Quantity Refills Last Filled Start Date End Date blood glucose diagnostic (glucose blood) strip 1 each by other route 2 (two) times a day 200 each 3 09/09/2023 semaglutide 0.25 mg or 0.5 mg (2 mg/3 mL) pen injector injectionIndicatio ns:Type 2 diabetes mellitus with hyperglycemia, without long-term current use of insulin (HCC) Inject 0.5 mg under the skin every 7 days 3 mL 10/09/2023 02/09/2024 semaglutide 0.25 mg or 0.5 mg (2 mg/3 mL) pen injector injectionIndicatio ns:Type 2 diabetes mellitus with hyperglycemia, without long-term current use of insulin (HCC) Inject 0.25 mg under the skin every 7 days 3 mL 09/09/2023 05/07/2024 documented in this encounter Progress Notes * Roseann Galvan, ANIMAL HUSBANDRY MANAGER - 09/09/2023 10:00 AM CST Images from the original note were not included. [facility] Chief Complaint. Chief Complaint Patient presents with Follow-up 3 mo follow up HPI. Patient is a 22 y.o. female Patient is here today for 3 month follow up of diabetes. A1C 7.0 today in office. She reports checking her BG daily until she ran out of test strips. She reports mild GI upset with metformin 500 mg daily and her symptoms have now resolved. She reports gradual onset of pain in her bilateral wrists with movement. Reports the left wrist pain is worse than the right. Denies wrist pain during previous two pregnancies. Past Medical History: Diagnosis Date Fatty liver disease, nonalcoholic 05/03/2016 Hx of migraine headaches Morbid obesity with BMI of 40.0-44.9, adult (HCC) Seasonal allergies HOME MEDICATIONS : blood-glucose meter misc blood-glucose meter misc lancets misc metFORMIN (GLUCOPHAGE) 500 mg tablet blood glucose diagnostic (glucose blood) strip blood glucose diagnostic (glucose blood) strip semaglutide 0.25 mg or 0.5 mg (2 mg/3 mL) pen injector injection semaglutide 0.25 mg or 0.5 mg (2 mg/3 mL) pen injector injection lancets (Microlet Lancet) [facility] No Known Allergies Social History Tobacco Use Smoking status: Never Smokeless tobacco: Never Substance and Sexual Activity Drug use: Never Sexual activity: Defer Alcohol Use: Not At Risk (07/13/2019) AUDIT-C Frequency of Alcohol Consumption: Never Average Number of Drinks: Not on file Frequency of Binge Drinking: Not on file Review of Systems: Review of Systems Constitutional: Negative for fever. Respiratory: Negative for cough, chest tightness and shortness of breath. Cardiovascular: Negative for chest pain and leg swelling. Gastrointestinal: Negative for constipation. Musculoskeletal: Positive for arthralgias. Neurological: Negative for dizziness and headaches. BP 122/88 (BP Location: Left arm, Patient Position: Sitting) Pulse 96 Temp 36.4 ??C (97.5 ??F) (Oral) Resp 18 Ht 165.1 cm (5' 5 ) Wt 136.1 kg (300 lb) SpO2 98% BMI 49.92 kg/m?? Physical Exam: Physical Exam Constitutional: General: She is not in acute distress. Appearance: Normal appearance. She is well-developed. She is obese. HENT: Head: Normocephalic and atraumatic. Right Ear: Tympanic membrane, ear canal and external ear normal. Left Ear: Tympanic membrane, ear canal and external ear normal. Nose: Nose normal. Eyes: General: Lids are normal. Conjunctiva/sclera: Conjunctivae normal. Pupils: Pupils are equal, round, and reactive to light. Cardiovascular: Rate and Rhythm: Normal rate and regular rhythm. Heart sounds: Normal heart sounds. Pulmonary: Effort: Pulmonary effort is normal. Breath sounds: Normal breath sounds. Abdominal: Palpations: Abdomen is soft. Musculoskeletal: General: Normal range of motion. Cervical back: Normal range of motion. Feet: Right Foot: Monofilament exam: normal. Protective Sensation: 6 sites tested. 6 sites sensed. Skin: General: Skin is warm and dry. Neurological: Mental Status: She is alert and oriented to person, place, and time. Psychiatric: Behavior: Behavior normal. Thought Content: Thought content normal. Assessment & Plan: Diagnoses and all orders for this visit: Type 2 diabetes mellitus with hyperglycemia, without long-term current use of insulin ([facility]) ([facility]) (Primary) Assessment & Plan: Continue checking glucose daily. Increase metformin to [...] 09/09/2023 HGBA1C 7.9 06/06/2023 HGBA1C 6.0% 06/26/2020 Orders: - POCT lipid panel - POCT hemoglobin A1c - semaglutide 0.25 mg or 0.5 mg (2 mg/3 mL) pen injector injection; Inject 0.25 mg under the skin every 7 days - semaglutide 0.25 mg or 0.5 mg (2 mg/3 mL) pen injector injection; Inject 0.5 mg under the skin every 7 days - Albumin Creatinine Ratio, Urine; Future Tendinitis, de Quervain's Assessment & Plan: Pain and tenderness on the radial side of bilateral wrists. Instructed to use thumb spica splint atnight and continue ibuprofen as needed. Acute right-sided low back pain with right-sided sciatica Assessment & Plan: Improving after physical therapy. Encouraged continuing home exercises. Morbid obesity with BMI of 50.0-59.9, adult (HCC) Other orders - blood glucose diagnostic (glucose blood) strip; 1 each by other route 2 (two) times a day Roseann Galvan NP We discussed dose, use, and potential side effects of medication. Risks and interactions reviewed with patient. Indications for testing reviewed. Patient has been instructed to contact the office with any signs or symptoms that are of concern. The patient is to contact the office with any change in, worsening, or non-improvement in condition. Patient verbalized understanding. The patient was given the opportunity to ask all questions and to have all questions answered. Patient is agreement withthe plan of care. There may be grammatical errors in this note due to use of voice recognition software. OR MARKETING SPECIALIST documented in this encounter Miscellaneous Notes * Assessment & Plan Note - Leilani Capone RN - 09/09/2023 10:51 AM SENIOR MARKETING SPECIALIST Associated Problem(s): Tendinitis, de Quervain's Pain and tenderness on the radial side of bilateral wrists. Instructed to use thumb spica splint atnight and continue ibuprofen as needed. OR MARKETING SPECIALIST OR MARKETING SPECIALIST OR MARKETING SPECIALIST OR MARKETING SPECIALIST OR MARKETING SPECIALIST OR MARKETING SPECIALIST OR MARKETING SPECIALIST OR MARKETING SPECIALIST OR MARKETING SPECIALIST * Assessment & Plan Note - Leilani Capone RN - 09/09/2023 10:47 AM SENIOR MARKETING SPECIALIST Associated Problem(s): Type 2 diabetes mellitus with hyperglycemia, without long-term current use of insulin (HCC) Continue checking glucose daily. Increase metformin to [...] 09/09/2023 HGBA1C 7.9 06/06/2023 HGBA1C 6.0% 06/26/2020 OR MARKETING SPECIALIST OR MARKETING SPECIALIST OR MARKETING SPECIALIST OR MARKETING SPECIALIST * Assessment & Plan Note - Leilani Capone RN - 09/09/2023 10:45 AM SENIOR MARKETING SPECIALIST Associated Problem(s): Acute right-sided low back pain with right-sided sciatica Improving after physical therapy. Encouraged continuing home exercises. OR MARKETING SPECIALIST documented in this encounter Plan of Treatment Not on file documented as of this encounter Procedures Procedure Name Priority Date/Time Associated Diagnosis Comments POCT LIPID PANEL Routine 09/09/2023 10:5 3 AM SENIOR MARKETING SPECIALIST Type 2 diabetes mellitus with hyperglycemia, without long-term current use of insulin ([facility]) ([facility]) POCT HEMOGLOBIN A1C Routine 09/09/2023 1 0:43 AM SENIOR MARKETING SPECIALIST Type 2 diabetes mellitus with hyperglycemia, without long-term current use of insulin ([facility]) ([facility]) documented in this encounter Results * POCT lipid panel (09/09/2023 10:53 AM SENIOR MARKETING SPECIALIST) Cholesterol, POC 156 mg/dL Comment:[id number] HDL, POC 30 mg/dL Triglycerides, POC 128 mg/dL LDL Cholesterol POC 101 mg/dL Chol/HDL Ratio, POC 5.2 Non-HDL Cholesterol, POC 126 mg/dL Cholesterol Total, POC 156 mg/dL Capillary blood 09/09/2023 1 0:53 AM SENIOR MARKETING SPECIALIST us Roseann Galvan NP POINT OF CARE TEST ORDERABL ES Final Result * (ABNORMAL) POCT hemoglobin A1c (09/09/2023 10:43 AM SENIOR MARKETING SPECIALIST) Hemoglobin A1C, POC 7.0 % Capillary blood 09/09/2023 1 0:43 AM SENIOR MARKETING SPECIALIST us Roseann Galvan NP POINT OF CARE TEST ORDERABL ES Final Result documented in this encounter Visit Diagnoses Diagnosis Type 2 diabetes mellitus with hyperglycemia, without long-term current use of insulin ([facility])- Primary Tendinitis, de Quervain's Acute right-sided low back pain with right-sided sciatica Morbid obesity with BMI of 50.0-59.9, adult ([facility]) documented in this encounter Discontinued Medications Medication Sig Discontinue Reason Start Date End Da te lancets (Microlet Lancet) misc 5-9 each by other route as directed Therapy completed 06/06/2023 09/09/2023 blood glucose diagnostic (glucose blood) strip 1 each by other route 2 (two) times a day Reorder 08/27/2023 09/09/2023 documented as of this encounter Care Teams Agent Relationship Specialty Start Date End Date Uriel Walker MD [address] [place] [address] PCP - General Family Medicine 02/23/19 documented as of this encounter
--- OUTSIDE RECORDS SUMMARY | 2024-11-10 05:58 | XMS_ITS | Encounter Summary ---
Author Organization [facility] Healthcare Address [address] [place] [address] Care Team Providers Care Customer Strategy Manager Name Role Phone Uriel Walker MD Primary Care Provider [phone] [phone] Encounter Details Date Type Department Care Team (Late st Contact Info) Description 09/30/2023 Orders Only [facility] Health Information Management [address] [place] [id number] Scanning, Provider Social History Tobacco Use Types [...] on file Legal Sex Female 1:53 AM BATCH AND FURNACE OPERATOR Gender Identity Female 11/22/2020 12:52 PM BATCH AND FURNACE OPERATOR Sexual Orientation Straight 11/22/2020 12 :52 PM BATCH AND FURNACE OPERATOR documented as of this encounter Plan of Treatment Not on file documented as of this encounter Procedures Procedure Name Priority Date/Time Associated Diagnosis Comments SCAN - RADIOLOGY/IMAGING 09/30/2023 documented in this encounter Results * SCAN - RADIOLOGY/IMAGING (09/30/2023) Anatomical Region Laterality Modality Other us Provider Scanning Final Result documented in this encounter Visit Diagnoses Not on filedocumented in this encounter Care Teams Customer Strategy Manager Relationship Specialty Start Date End Date Uriel Walker MD [address] [place] [address] PCP - General Family Medicine 02/23/19 documented as of this encounter
--- OUTSIDE RECORDS SUMMARY | 2024-11-10 05:58 | XMS_ITS | Encounter Summary ---
Author Organization [facility] Medical Group Address [address] [place] [address] Care Team Providers Care Dining Room Cashier Name Role Phone Uriel Walker MD Primary Care Provider [phone] [phone] Encounter Details Date Type Department Care Team (Late st Contact Info) Description 05/04/2022 Orders Only [facility] [address] [place] [address] Scanning, Provider Social History Tobacco Use Types [...] on file Legal Sex Female 1:53 AM WORKERS COMPENSATION ANALYST Gender Identity Female 11/22/2020 12:52 PM WORKERS COMPENSATION ANALYST Sexual Orientation Straight 11/22/2020 12 :52 PM WORKERS COMPENSATION ANALYST documented as of this encounter Plan of Treatment Not on file documented as of this encounter Procedures Procedure Name Priority Date/Time Associated Diagnosis Comments SCAN - LABS 05/04/2022 documented in this encounter Results * SCAN - LABS (05/04/2022) us Provider Scanning Final Result documented in this encounter Visit Diagnoses Not on filedocumented in this encounter Care Teams Dining Room Cashier Relationship Specialty Start Date End Date Uriel Walker MD [address] [place] [address] PCP - General Family Medicine 02/23/19 documented as of this encounter
--- OUTSIDE RECORDS SUMMARY | 2024-11-10 05:58 | XMS_ITS | Encounter Summary ---
Author Organization [facility] Medical Group Address [address] [place] [address] Care Team Providers Care Undercutter Name Role Phone Uriel Walker MD Primary Care Provider [phone] Encounter Details Date Type Department Care Team (Late st Contact Info) Description 04/13/2022 Orders Only [facility] Information [facility] [address] [place] [address] Scanning, Provider Social History Tobacco Use Types [...] on file Legal Sex Female 1:53 AM PULPWOOD BUYER Gender Identity Female 11/22/2020 12:52 PM PULPWOOD BUYER Sexual Orientation Straight 11/22/2020 12 :52 PM PULPWOOD BUYER documented as of this encounter Plan of Treatment Not on file documented as of this encounter Procedures Procedure Name Priority Date/Time Associated Diagnosis Comments SCAN - RADIOLOGY/IMAGING 04/13/2022 SCAN - LABS 04/13/2022 documented in this encounter Results * SCAN - LABS (04/13/2022) us Provider Scanning Edited Result - Final * SCAN - RADIOLOGY/IMAGING (04/13/2022) Anatomical Region Laterality Modality Other us Provider Scanning Edited Result - Final documented in this encounter Visit Diagnoses Not on filedocumented in this encounter Care Teams Undercutter Relationship Specialty Start Date End Date Uriel Walker MD [address] [place] [address] PCP - General Family Medicine 02/23/19 documented as of this encounter
--- OUTSIDE RECORDS SUMMARY | 2024-11-10 05:58 | XMS_ITS | Encounter Summary ---
Author Organization [facility] Medical Group Address [address] [place] [address] Care Team Providers Care Crm Consultant Name Role Phone Uriel Walker MD Primary Care Provider [phone] Encounter Details Date Type Department Care Team (Late st Contact Info) Description 04/18/2022 Orders Only [facility] [address] [place] [address] Scanning, Provider Social History Tobacco Use Types [...] on file Legal Sex Female 1:53 AM DRAGLINE OILER Gender Identity Female 11/22/2020 12:52 PM DRAGLINE OILER Sexual Orientation Straight 11/22/2020 12 :52 PM DRAGLINE OILER documented as of this encounter Plan of Treatment Not on file documented as of this encounter Procedures Procedure Name Priority Date/Time Associated Diagnosis Comments SCAN - LABS 04/18/2022 documented in this encounter Results * SCAN - LABS (04/18/2022) us Provider Scanning Edited Result - Final documented in this encounter Visit Diagnoses Not on filedocumented in this encounter Care Teams Crm Consultant Relationship Specialty Start Date End Date Uriel Walker MD [address] [place] [address] PCP - General Family Medicine 02/23/19 documented as of this encounter
--- OUTSIDE RECORDS SUMMARY | 2024-11-10 05:58 | XMS_ITS | Encounter Summary ---
Author Organization [facility] Medical Group Address [address] [place] [address] Care Team Providers Care Cruise Coordinator Name Role Phone Uriel Walker MD Primary Care Provider [phone] Encounter Details Date Type Department Care Team (Late st Contact Info) Description 08/01/2023 Orders Only [facility] [address] [place] [address] Uriel Walker MD [address] [place] [address] Social History Tobacco Use Types Packs/Day Years [...] points, staff should administer the PHQ-9) 0 06/06/2023 Comments Unknown Sex and Gender Information Value Date Recorded Sex Assigned at Not on file Legal Sex Female 1:53 AM PIPE STEM REPAIRER Gender Identity Female 11/22/2020 12:52 PM PIPE STEM REPAIRER Sexual Orientation Straight 11/22/2020 12 :52 PM PIPE STEM REPAIRER documented as of this encounter Ordered Prescriptions Prescription Sig Dispense Quantity Refills Last Filled Start Date End Date blood glucose diagnostic (glucose blood) strip 1 each by other route 2 (two) times a day 200 each 3 08/01/2023 3 blood-glucose meter misc Use daily or as directed for monitoring of diabetes. 1 each 08/01/2023 4 documented in this encounter Plan of Treatment Not on file documented as of this encounter Visit Diagnoses Not on filedocumented in this encounter Discontinued Medications Medication Sig Discontinue Reason Start Date End Da te blood glucose diagnostic (Contour Next Test Strips) strip 1 each by other route 2 (two) times a day Alternate therapy 07/25/2023 08/01/2023 blood glucose diagnostic (glucose blood) strip 1 each by other route 2 (two) times a day Alternate therapy 07/28/2023 08/01/2023 blood glucose diagnostic (glucose blood) strip 1 each by other route 2 (two) times a day Alternate therapy 07/30/2023 08/01/2023 documented as of this encounter Care Teams Cruise Coordinator Relationship Specialty Start Date End [place] [address] PCP - General Family Medicine 02/23/19 documented as of this encounter
--- OUTSIDE RECORDS SUMMARY | 2024-11-10 05:58 | XMS_ITS | Encounter Summary ---
Author Organization [facility] Medical Group Address [address] [place] [address] Care Team Providers Care Driver/Merchandiser Name Role Phone Uriel Walker MD Primary Care Provider [phone] [phone] Encounter Details Date Type Department Care Team (Late st Contact Info) Description 02/28/2022 Orders Only [facility] Health Information [facility] [address] [place] [address] Scanning, Provider Social History Tobacco Use Types [...] on file Legal Sex Female 1:53 AM WOOD GOUGER Gender Identity Female 11/22/2020 12:52 PM WOOD GOUGER Sexual Orientation Straight 11/22/2020 12 :52 PM WOOD GOUGER documented as of this encounter Plan of Treatment Not on file documented as of this encounter Procedures Procedure Name Priority Date/Time Associated Diagnosis Comments SCAN - LABS 02/28/2022 documented in this encounter Results * SCAN - LABS (02/28/2022) us Provider Scanning Final Result documented in this encounter Visit Diagnoses Not on filedocumented in this encounter Care Teams Driver/Merchandiser Relationship Specialty Start Date End Date Uriel Walker MD [address] [place] [address] PCP - General Family Medicine 02/23/19 documented as of this encounter
--- OUTSIDE RECORDS SUMMARY | 2024-11-10 05:58 | XMS_ITS | Encounter Summary ---
Author Organization [facility] Medical Group Address [address] [place] [address] Care Team Providers Care Electronic Tech Name Role Phone Uriel Walker MD Primary Care Provider [phone] Encounter Details Date Type Department Care Team (Late st Contact Info) Description 07/25/2023 Telephone [facility] [address] [place] [address] Uriel Walker MD [address] [place] [address] Social History Tobacco Use Types Packs/Day Years [...] on file Legal Sex Female 1:53 AM FINGER GRIP MACHINE OPERATOR Gender Identity Female 11/22/2020 12:52 PM FINGER GRIP MACHINE OPERATOR Sexual Orientation Straight 11/22/2020 12 :52 PM FINGER GRIP MACHINE OPERATOR documented as of this encounter Miscellaneous Notes * Telephone Encounter - Marguerite Valenzuela MA - 07/25/2023 8:11 AM CDT Received fax from pharmacy requesting new RX for One touch verio test strips Send to pharmacy if approved thanks. documented in this encounter Plan of Treatment Not on file documented as of this encounter Visit Diagnoses Not on filedocumented in this encounter Care Teams Electronic Tech Relationship Specialty Start Date End Date Uriel Walker MD [address] [place] [address] PCP - General Family Medicine 02/23/19 documented as of this encounter
--- OUTSIDE RECORDS SUMMARY | 2024-11-10 05:58 | XMS_ITS | Encounter Summary ---
Author Organization [facility] Healthcare Address [address] [place] [address] Care Team Providers Care Nurses Assistant Name Role Phone Uriel Walker MD Primary Care Provider [phone] Reason for Visit * Reason Onset Date Comments Authorization/Certification 10/24/2023 Encounter Details Date Type Department Care Team (Late st Contact Info) Description 10/24/2023 Telephone [facility] [address] [place] [address] Uriel Walker MD [address] [place] [address] Authorization/Certific ation Social History Tobacco Use Types Packs/Day Years [...] on file Legal Sex Female 1:53 AM DIESEL MECHANIC Gender Identity Female 11/22/2020 12:52 PM DIESEL MECHANIC Sexual Orientation Straight 11/22/2020 12 :52 PM DIESEL MECHANIC documented as of this encounter Miscellaneous Notes * Telephone Encounter - Meliza Craft MA - 10/29/2023 2:30 PM CST This has been approved from 10/28-10/28/24. EL MECHANIC * Telephone Encounter - Marguerite Valenzuela MA - 10/24/2023 11:50 AM CST Submitted through covermymeds Waiting on response. EL MECHANIC * Telephone Encounter - Shahnaz Oden - 10/24/2023 10:55 AM CST Authorization/Certification Type of Auth/Cert Needed: Prior Authorization for Medication Name of Medication and Dosage: Ozempic .25 Is the patient out of the medication? yes Pharmacy that medication was sent to: [facility] Is insurance in chart accurate? yes Additional Comments: the original pa had an eligibility issue Pharmacy was called and got a new pa form started. ref [id number] Does message need to be routed? Yes-Action Needed EL MECHANIC documented in this encounter Plan of Treatment Not on file documented as of this encounter Visit Diagnoses Not on filedocumented in this encounter Care Teams Nurses Assistant Relationship Specialty Start Date End Date [place]riel Walker [place] [address] PCP - General Family Medicine 02/23/19 documented as of this encounter
--- OUTSIDE RECORDS SUMMARY | 2024-11-10 05:58 | XMS_ITS | Encounter Summary ---
Author Organization [facility] Healthcare Address [address] [place] [address] Care Team Providers Care Straw Hat Brim Raiser Operator Name Role Phone Uriel Walker MD Primary Care Provider [phone] Encounter Details Date Type Department Care Team (Late st Contact Info) Description 10/06/2023 11:55 AM NURSE TRANSITION Lab [facility] [address] [place] [address] Encounter for screening for lipoid disorders; New onset type 2 diabetes mellitus (CMS/HCC) (HCC); Thyroid disorder screening Social History Tobacco Use Types Packs/Day Years [...] on file Legal Sex Female 1:53 AM NURSE TRANSITION Gender Identity Female 11/22/2020 12:52 PM NURSE TRANSITION Sexual Orientation Straight 11/22/2020 12 :52 PM NURSE TRANSITION documented as of this encounter Plan of Treatment Not on file documented as of this encounter Procedures Procedure Name Priority Date/Time Associated Diagnosis Comments EGFR Routine 10/06/2023 12:19 PM NURSE TRANSITION New onset type 2 diabetes mellitus (CMS/HCC) (HCC) DIFFERENTIAL AUTO Routine 10/06/2023 12: 19 PM NURSE TRANSITION New onset type 2 diabetes mellitus (CMS/HCC) (HCC) THYROID FUNCTION CASCADE Routine 10/06/2023 12:19 PM NURSE TRANSITION Thyroid disorder screening CBC WITH AUTO DIFFERENTIAL Routine 10/06/2023 12:19 PM NURSE TRANSITION New onset type 2 diabetes mellitus (CMS/HCC) (HCC) ALBUMIN CREATININE RATIO, URINE Routine 10/06/2023 12:19 PM NURSE TRANSITION New onset type 2 diabetes mellitus (CMS/HCC) (HCC) HEMOGLOBIN A1C Routine 10/06/2023 12:19 PM NURSE TRANSITION New onset type 2 diabetes mellitus (CMS/HCC) (HCC) LIPID PANEL Routine 10/06/2023 12:19 PM NURSE TRANSITION Encounter for screening for lipoid disorders COMPREHENSIVE METABOLIC PANEL Routine 10/06/2023 12:19 PM NURSE TRANSITION New onset type 2 diabetes mellitus (CMS/HCC) (HCC) documented in this encounter Results * eGFR (10/06/2023 12:19 PM NURSE TRANSITION) eGFR 128 mL/min/1. 73 m2 CONNIE ALSTON [...] was last reviewed 2021. Testing performed by: [facility], [address] [place] [address]., [id number] Blood 10/06/2023 12:1 9 PM NURSE TRANSITION 10/06/2023 6:45 PM NURSE TRANSITION Roseann Galvan PALEONTOLOGICAL HELPER LAB BLOOD ORDERABLES Final Result CONNIE ALSTON ([place]) 1 [facility] Department [place] [address] * Differential, auto (10/06/2023 12:19 PM NURSE TRANSITION) Neutrophil abs 4.6 1.7 - 6.5 K/cumm [facility] ([place]) Comment:Testing performed by : [address], [address] Imm gran abs 0.0 0.0 - 0.1 K/cumm [facility] ([place]) Comment:Testing performed by : [address] [address] Lymphocyte abs 1.3 0.8 - 3.3 K/cumm [facility] ([place]) Comment:Testing performed by : [address] [address] Monocyte abs 0.4 0.2 - 0.8 K/cumm [facility] ([place]) Comment:Testing performed by : [facility], [address] [place] [address]., [address] Eosinophil abs 0.1 0.0 - 0.5 K/cumm [facility] ([place]) Comment:Testing performed by : [address] [address] Basophil abs 0.0 0.0 - 0.1 K/cumm [facility] ([place]) Comment:Testing performed by : [address] [address] Neutrophil pct 71.6 % [facility] ([place]) Comment: Interpretive Data Percent cell count reference ranges are not reported, since discordance with absolute values may lead to misinterpretation of CBC data. Current Interpretive Data was last revised on 2018. Testing performed by: [address] [address] Imm gran pct 0.3 % [facility] ([place]) Comment: Interpretive Data Percent cell count reference ranges are not reported, since discordance with absolute values may lead to misinterpretation of CBC data. Current Interpretive Data was last revised on 2018. Testing performed by: [address] [address] Lymphocyte pct 20.8 % [facility] ([place]) Comment: Interpretive Data Percent cell count reference ranges are not reported, since discordance with absolute values may lead to misinterpretation of CBC data. Current Interpretive Data was last revised on 2018. Testing performed by: [address] [address] Monocyte pct 5.6 % [facility] ([place]) Comment: Interpretive Data Percent cell count reference ranges are not reported, since discordance with absolute values may lead to misinterpretation of CBC data. Current Interpretive Data was last revised on 2018. Testing performed by: [address] [address] Eosinophil pct 1.2 % [facility] ([place]) Comment: Interpretive Data Percent cell count reference ranges are not reported, since discordance with absolute values may lead to misinterpretation of CBC data. Current Interpretive Data was last revised on 2018. Testing performed by: [address] [address] Basophil pct 0.5 % [facility] ([place]) Comment: Interpretive Data Percent cell count reference ranges are not reported, since discordance with absolute values may lead to misinterpretation of CBC data. Current Interpretive Data was last revised on 2018. Testing performed by: [facility], [address] [place] [address]., [address] Blood 10/06/2023 12:1 9 PM NURSE TRANSITION 10/06/2023 6:05 PM NURSE TRANSITION Roseann Galvan PALEONTOLOGICAL HELPER LAB BLOOD ORDERABLES Final Result Performing Organization Address City/[facility]/ZIP Co de Phone Number CONNIE ALSTON ([place]) 1 [facility] [place] [address] * Albumin Creatinine Ratio, Urine (10/06/2023 12:19 PM NURSE TRANSITION) Albumin Ur <12.0 mg/L [facility] ([place]) Comment: Interpretive Data No reference range established. Current interpretive data was last revised 2019. Testing performed by: [facility], [address] [place] [address]., [address] Creatinine Ur 214.2 mg/dL [facility] ([place]) Comment: Interpretive Data No reference range established. Current interpretive data was last revised 2019. Testing performed by: [facility], [address] [place] [address]., [address] Albumin Creatinine Ratio, Ur <6 1 - 29 mg/g [facility] ([place]) Comment:Testing performed by : [facility], [address] [place] [address]., [address] Urine 10/06/2023 12:1 9 PM NURSE TRANSITION 10/06/2023 6:05 PM NURSE TRANSITION Roseann Galvan PALEONTOLOGICAL HELPER LAB URINE ORDERABLES Final Result Performing Organization Address [facility] Co de Phone Number [facility] ([place]) 1 [place] [address] * TSH reflex to free T4 (10/06/2023 12:19 PM NURSE TRANSITION) TSH 2.46 0.30 - 4.20 mcIUnit/mL [facility] ([place]) Comment:Testing performed by : [facility], [address] [place] [address]., [address] Blood 10/06/2023 12:1 9 PM NURSE TRANSITION 10/06/2023 6:05 PM NURSE TRANSITION Roseann Galvan NP LAB BLOOD ORDERABLES Final Result Performing Organization Address [facility] Co de Phone Number CONNIE ALSTON ([place]) 1 [facility] [place] [address] * (ABNORMAL) Hemoglobin A1c (10/06/2023 12:19 PM NURSE TRANSITION) Hgb A1C 7.5(H) 4.0 - 5.6 % CONNIE ALSTON ([place]) Comment:Testing performed by : [address], [address] Estimated Average Glucose 169 mg/dL CONNIE ALSTON ([place]) Comment: The ADA recommends reporting an estimated Average Glucose (eAG) with all Hemoglobin A1c results using the equation derived from a study of 507 normal and diabetic adults. ??Minority populations were underrepresented and children were not included. ?? (Diabetes Care 31:8910-5935, 2008). ??The eAG is not equivalent to a fasting glucose. Testing performed by: [facility], [address] [place] [address]., [address] Blood 10/06/2023 12:1 9 PM NURSE TRANSITION 10/06/2023 6:05 PM NURSE TRANSITION Roseann Galvan NP LAB BLOOD ORDERABLES Final Result Performing Organization Address City/[facility] Co de Phone Number CONNIE ALSTON ([place]) 1 [facility] [place] [address] * (ABNORMAL) CBC with auto differential (10/06/2023 12:19 PM NURSE TRANSITION) WBC 6.4 3.8 - 9.9 K/cumm CONNIE ALSTON ([place]) Comment:Testing performed by : [address] [address] Hgb 13.7 11.9 - 15.5 g/dL CONNIE [facility] ([place]) Comment: Interpretive Data A reference range for this assay has not been established for patients with an unknown legal sex. Please refer to the laboratory test catalog for established sex-specific reference intervals. Current interpretive data was last revised on 2023. Testing performed by: [address], [address] Hct 44.3 35.6 - 45.5 % [facility] ([place]) Comment: Interpretive Data A reference range for this assay has not been established for patients with an unknown legal sex. Please refer to the laboratory test catalog for established sex-specific reference intervals. Current interpretive data was last revised on 2023. Testing performed by: [address], [address] Plt 339 150 - 400 K/cumm [facility] ([place]) Comment:Testing performed by : [address], [address] MPV 9.2 9.1 - 12.3 fL [facility] ([place]) Comment:Testing performed by : [address], [address] RBC 5.11 3.90 - 5.20 M/cumm [facility] ([place]) Comment: Interpretive Data A reference range for this assay has not been established for patients with an unknown legal sex. Please refer to the laboratory test catalog for established sex-specific reference intervals. Current interpretive data was last revised on 2023. Testing performed by: [address], [address] MCV 86.7 81.3 - 96.4 fL [facility] ([place]) Comment:Testing performed by : [address], [address] MCH 26.8(L) 27.1 - 33.3 pg [facility] ([place]) Comment:Testing performed by : [address], [address] MCHC 30.9(L) 32.3 - 35.7 g/dL [facility] ([place]) Comment:Testing performed by : [address], [address] RDW CV 13.0 11.1 - 14.9 % [facility] ([place]) Comment:Testing performed by : [facility], [address] [place] [address], [address] RDW SD 40.2 35.7 - 48.1 fL [facility] ([place]) Comment:Testing performed by : [facility], [address] [place] [address], [address] NRBC abs 0.00 0.00 - 0.01 K/cumm [facility] ([place]) Comment:Testing performed by : [address], [address] Blood 10/06/2023 12:1 9 PM NURSE TRANSITION 10/06/2023 6:05 PM NURSE TRANSITION Roseann Galvan PALEONTOLOGICAL HELPER LAB BLOOD ORDERABLES Final Result [facility] ([place]) 1 [facility] Department [place] [address] * Comprehensive metabolic panel (10/06/2023 12:19 PM NURSE TRANSITION) Sodium 137 135 - 145 mmol/L [facility] ([place]) Comment:Testing performed by : [address], [address] Potassium, pl 4.3 3.3 - 4.9 mmol/L [facility] ([place]) Comment:Testing performed by : [address], [address] Chloride 102 97 - 110 mmol/L [facility] ([place]) Comment:Testing performed by : [address], [address] CO2 27 22 - 32 mmol/L [facility] ([place]) Comment:Testing performed by : [address], [address] Anion gap 8 2 - 15 mmol/L [facility] ([place]) Comment:Testing performed by : [address], [address] BUN 8 6 - 25 mg/dL [facility] ([place]) Comment:Testing performed by : [address], [address] Creatinine 0.66 0.60 - 1.10 mg/dL [facility] ([place]) Comment:Testing performed by : [address] [address] Glucose 194 70 - 199 mg/dL [facility] ([place]) Comment: Interpretive Data Fasting glucose >/= 126 mg/dl is diagnostic for diabetes. ?? Fasting is defined as no caloric intake for at least 8 hours. Fasting glucose between 100 mg/dl to 125 mg/dl is diagnostic of prediabetes. In a patient with classic symptoms of hyperglycemia or hyperglycemic crisis, a random glucose >/= 200 mg/dl is diagnostic for diabetes. In the absence of unequivocal hyperglycemia, results should be confirmed by repeat testing. The classification and Diagnosis of Diabetes Diabetes Care 2021; 46: S19-S40. Current interpretive data was last revised 2022. Testing performed by: [address], [address] Calcium 9.7 8.5 - 10.3 mg/dL [facility] ([place]) Comment:Testing performed by : [address], [address] Bilirubin, total 0.6 0.1 - 1.2 mg/dL [facility] ([place]) Comment:Testing performed by : [address], [address] Protein, pl 7.3 6.5 - 8.5 g/dL [facility] ([place]) Comment:Testing performed by : [address], [address] Albumin 4.0 3.5 - 5.0 g/dL [facility] ([place]) Comment:Testing performed by : [address], [address] Alk phos 94 40 - 130 Units/L [facility] ([place]) Comment:Testing performed by : [address], [address] ALT 25 7 - 45 Units/L [facility] ([place]) Comment:Testing performed by : [address], [address] AST 22 10 - 45 Units/L [facility] ([place]) Comment:Testing performed by : [address] [place]., [address] Blood 10/06/2023 12:1 9 PM NURSE TRANSITION 10/06/2023 6:05 PM NURSE TRANSITION Roseann BenavidezKarl Galvan PALEONTOLOGICAL HELPER LAB BLOOD ORDERABLES Final Result CONNIE ALSTON ([place]) 1 [facility] Department [place] [address] * (ABNORMAL) Lipid panel (10/06/2023 12:19 PM NURSE TRANSITION) Cholesterol 169 30 - 199 mg/dL CONNIE [...] last revised on 2018. Testing performed by: [facility], [address] [place] [address]., [address] Triglycerides 162(H) <=149 mg/dL CONNIE ALSTON ([place]) [...] last revised on 2018. Testing performed by: [facility], [address] [place] [address]., [address] HDL 31(L) >=40 mg/dL CONNIE [facility] ([place]) Comment: Interpretive Data [...] last revised on 2018. Testing performed by: [facility], [address] [place] [address]., [address] LDL, calculated 106 <=129 mg/dL CONNIE ALSTON [...] last revised on 2018. Testing performed by: [address] [address] Non-HDL Cholesterol 138 mg/dL CONNIE ALSTON ([place]) [...] last revised on 2018. Testing performed by: [facility], [address] [place] [address]., [address] Chol/HDL ratio 5 TURNER [facility]ST[facility] ([place]) Comment:Testing performed by : [address] [address] Blood 10/06/2023 12:1 9 PM NURSE TRANSITION 10/06/2023 6:05 PM NURSE TRANSITION Roseann Galvan PALEONTOLOGICAL HELPER LAB BLOOD ORDERABLES Final Result CONNIE ALSTON ([place]) 1 [facility] Department [place] [address] documented in this encounter Visit Diagnoses Diagnosis Encounter for screening for lipoid disorders New onset type 2 diabetes mellitus (CMS/HCC) (HCC) Thyroid disorder screening Screening for thyroid disorder documented in this encounter Care Teams Straw Hat Brim Raiser Operator Relationship Specialty Start Date End Date [place] [address] PCP - General Family Medicine 02/23/19 documented as of this encounter
--- OUTSIDE RECORDS SUMMARY | 2024-11-10 05:58 | XMS_ITS | Encounter Summary ---
Author Organization [facility] Healthcare Address [address] [place] [address] Care Team Providers Care Spray Gun Repairer Helper Name Role Phone Uriel Walker MD Primary Care Provider [phone] Reason for Visit * Reason Onset Date Comments Appointment Request 01/13/2024 Encounter Details Date Type Department Care Team (Late st Contact Info) Description 01/13/2024 Telephone Family Physicians [facility] [address] [place] [address] Uriel Walker MD [address] [place] [address] Appointment Request (/) Social History Tobacco Use Types Packs/Day Years [...] on file Legal Sex Female 1:53 AM SUPERVISOR CLOTH WINDING Gender Identity Female 11/22/2020 12:52 PM SUPERVISOR CLOTH WINDING Sexual Orientation Straight 11/22/2020 12 :52 PM SUPERVISOR CLOTH WINDING documented as of this encounter Miscellaneous Notes * Telephone Encounter - Mckayla Elias 01/14/2024 9:54 AM CDT Call Back Caller???s Concern: patient called back and was relayed message below, she stated she understood Does message need to be routed? No * Telephone Encounter - Lotus Bradley - 01/14/2024 9:48 AM CDT Left voicemail for patient with info below about proceeding to the ER * Telephone Encounter - Lotus Bradley - 01/14/2024 9:20 AM CDT Called patient and scheduled with Roseann for 730 am. Pt is stating that Right side of calf really hurts, 6 or 7 out of 10 pain scale. She can hardly walk Pt states she has some SOB but believes that is due to Ozempic. She denies fever, denies that it iswarm to touch, and no redness. No recent long distance travel, No surgeries recently, is on Mirena IUD for control Nothing really helps the pain unless her leg is propped up and resting. Any other times, its painful Told if worsening symptoms to proceed to ER * Telephone Encounter - Norma Callejas - 01/13/2024 5:27 PM CDT Appointment Request What visit type does the patient need? Visit Type: Established Patient What is the reason for the visit? pain in right leg, duration of one and a half weeks What is the reason we were unable to schedule the appointment? Current appointment availability didnot meet patient's need. If applicable, were all members of the patient's PCP care team offered (e.g., nurse practioner(s), physician assistant director of residence life(s)) ? Yes Additional Comments: Patient states that she spoke with someone in PCPs office (MIXED LIVESTOCK FARM WORKER unable to locate note) about calling to schedule. MIXED LIVESTOCK FARM WORKER unable to accommodate patient with appointment with any provider until March 03. Does message need to be routed? Yes-Action Needed documented in this encounter Plan of Treatment Not on file documented as of this encounter Visit Diagnoses Not on filedocumented in this encounter Care Teams Spray Gun Repairer Helper Relationship Specialty Start Date End Date Uriel Walker MD [address] [place] [address] PCP - General Family Medicine 02/23/19 documented as of this encounter
--- OUTSIDE RECORDS SUMMARY | 2024-11-10 05:58 | XMS_ITS | Encounter Summary ---
Author Organization [facility] Healthcare Address [address] [place] [address] Care Team Providers Care Union Organizer Name Role Phone Uriel Walker MD Primary Care Provider [phone] Encounter Details Date Type Department Care Team (Late st Contact Info) Description 09/11/2023 Telephone Family Physicians [facility] 163 [facility] [address] Roseann Galvan, DEREK 163 [facility] [place] [address] Social History Tobacco Use Types Packs/Day Years [...] on file Legal Sex Female 1:53 AM FUNNEL COATER Gender Identity Female 11/22/2020 12:52 PM FUNNEL COATER Sexual Orientation Straight 11/22/2020 12 :52 PM FUNNEL COATER documented as of this encounter Miscellaneous Notes * Telephone Encounter - Fred Weinberg - 09/11/2023 4:31 PM CST Contacted patient to let them know that there are open lab orders that we need to collect. Let patient know about our lab hours and that we need to collect both blood and urine so come hydrated to the lab. EL COATER documented in this encounter Plan of Treatment Not on file documented as of this encounter Visit Diagnoses Not on filedocumented in this encounter Care Teams Union Organizer Relationship Specialty Start Date End Date Uriel Walker MD [address] [place] [address] PCP - General Family Medicine 02/23/19 documented as of this encounter
--- OUTSIDE RECORDS SUMMARY | 2024-11-10 05:58 | XMS_ITS | Encounter Summary ---
Author Organization [facility] Healthcare Address [address] [place] [address] Care Team Providers Care Water Pollution Control Inspector Name Role Phone Uriel Walker MD Primary Care Provider [phone] Reason for Visit * Reason Onset Date Comments Medication Request 12/26/2023 Encounter Details Date Type Department Care Team (Late st Contact Info) Description 12/26/2023 Telephone Family Physicians [facility] [address] [place] [address] Uriel Walker MD [address] [place] [address] Medication Request Social History Tobacco Use Types Packs/Day [...] on file Legal Sex Female 1:53 AM LIME SLAKER Gender Identity Female 11/22/2020 12:52 PM LIME SLAKER Sexual Orientation Straight 11/22/2020 12 :52 PM LIME SLAKER documented as of this encounter Miscellaneous Notes * Telephone Encounter - Nilda Alejo - 01/13/2024 8:38 AM CDT LMOR to schedule for same day appt this week. * Telephone Encounter - Marguerite Vlaenzuela MA - 01/13/2024 8:08 AM CDT Patient needs scheduled for knee pain thanks. * Telephone Encounter - Marguerite Valenzuela MA - 01/12/2024 4:35 PM CDT Spoke with patient on phone, patient states that she has been having pain behind knee cap down to calf, and ankle swelling on right side. Pt states that she does have issues with sciatic nerve but pain feels different than when she has sciatic nerve flair ups. Pt would like recommendations for nextsteps. * Telephone Encounter - Marguerite Valenzuela MA - 01/12/2024 4:33 PM CDT Spoke with patient about ozempic dosage pt states that she went back down to 0.25 due to 0.5 dose causing dizziness, n/v and diarrhea. Advise to take this dose for the 4 weeks as prescribed can discuss moving back up to 0.5 once those dose is finish. Let patient know if she continues to have side effect when increasing to 0.5 again, we can discuss medication change. * Telephone Encounter - Norma Callejas - 01/09/2024 4:46 PM CST Call Back Caller???s Concern: Patient requesting call back regarding ozempic dosage. Please contact patient for dosage clarification. Does message need to be routed? Yes-Action Needed SLAKER * Telephone Encounter - Marguerite Valenzuela MA - 12/26/2023 2:52 PM CST Spoke with pharmacy about medication dose being 0.5mg weekly. SLAKER * Telephone Encounter - Den Zaidi - 12/26/2023 1:47 PM CST Medication Question/Clarification Medication Name(s): semaglutide 0.25 mg or 0.5 mg (2 mg/3 mL) pen injector injection What is the question or clarification needed? Pharmacy requesting call back to claify correct dose for this medication If needed, Pharmacy(s) medication(s) should be sent to: Mark Additional Comments: Pharmacy requesting call back regarding medication dose Does message need to be routed? Yes-Action Needed SLAKER documented in this encounter Plan of Treatment Not on file documented as of this encounter Visit Diagnoses Not on filedocumented in this encounter Care Teams Water Pollution Control Inspector Relationship Specialty Start Date End Date Uriel Walker MD [address] [place] [address] PCP - General Family Medicine 02/23/19 documented as of this encounter
--- OUTSIDE RECORDS SUMMARY | 2024-11-10 05:58 | XMS_ITS | Encounter Summary ---
Author Organization [facility] Address [address] [place] [address] Care Team Providers Care Environmental Compliance Specialist Name Role Phone Uriel Walker MD Primary Care Provider [phone] Encounter Details Date Type Department Care Team (Late st Contact Info) Description 03/22/2022 Orders Only [facility] [address] [place] [address] Scanning, Provider Social History Tobacco Use Types [...] on file Legal Sex Female 1:53 AM PROGRAM DIRECTOR/AIR PERSONALITY Gender Identity Female 11/22/2020 12:52 PM PROGRAM DIRECTOR/AIR PERSONALITY Sexual Orientation Straight 11/22/2020 12 :52 PM PROGRAM DIRECTOR/AIR PERSONALITY documented as of this encounter Plan of Treatment Not on file documented as of this encounter Procedures Procedure Name Priority Date/Time Associated Diagnosis Comments SCAN - LABS 03/22/2022 documented in this encounter Results * SCAN - LABS (03/22/2022) us Provider Scanning Final Result documented in this encounter Visit Diagnoses Not on filedocumented in this encounter Care Teams Environmental Compliance Specialist Relationship Specialty Start Date End Date Uriel Walker MD [address] [place] [address] PCP - General Family Medicine 02/23/19 documented as of this encounter
--- OUTSIDE RECORDS SUMMARY | 2024-11-10 05:58 | XMS_ITS | Encounter Summary ---
Author Organization [facility] Medical Group Address [address] [facility] [address] [place] [address] Care Team Providers Care Health Insurance Sales Agent Name Role Phone Uriel Walker MD Primary Care Provider +1 [phone] Reason for Visit * Reason Onset Date Comments Vaginal Bleeding 08/21/2022 Encounter Details Date Type Department Care Team (Late st Contact Info) Description 08/21/2022 Nurse Triage Family Physicians [facility] [address] [place] [address] Uriel Walker MD [address] [place] [address] Social History Tobacco Use Types Packs/Day Years [...] on file Legal Sex Female 1:53 AM WEEKDAY BABYSITTER Gender Identity Female 11/22/2020 12:52 PM WEEKDAY BABYSITTER Sexual Orientation Straight 11/22/2020 12 :52 PM WEEKDAY BABYSITTER documented as of this encounter Miscellaneous Notes * Telephone Encounter - Antonieta Rodriges RN - 08/21/2022 2:53 PM CDT Reason for Disposition MODERATE vaginal bleeding (i.e., soaking pad or tampon per hour and present > 6 hours; 1 menstrual cup every 6 hours) Protocols used: Vaginal Bleeding - [id number]-MS Patient calling with 17 day history of heavy menstrual bleeding. This is her first period since shegave in May. She is soaking 1 pad every hour. Has intermittent cramping. Denies dizziness, weakness. Had episode of tingling in hands, feet, and face. Waiting for DM results. PCP/TOE LINING CLOSER contacted via secure chat for ED disposition consult. Recommendation from provider:Barbara Sheikh to ED Patient advised to be seen in ER and patient is agreeable to the recommendation. * Telephone Encounter - Antonieta Rodriges RN - 08/21/2022 2:40 PM CDT Regarding: Vaginal Bleeding ----- Message from Loyda Joy sent at 08/21/2022 2:38 PM CDT ----- Symptom Based Call Chief Complaint: Vaginal Bleeding Did you review 911/Red Flag List?Yes Duration: 2 1/2 weeks Why was appointment not scheduled? Red Flag Caller's Callback #: [phone] Additional Comments: tingly in face, hands, and feet with mild cramping. Pt states that she had herback back in May, she recently had her period but has been bleeding for 2 1/2 weeks, pt states that the bleeding is heavy Does message need to be routed? Yes-Action Needed documented in this encounter Plan of Treatment Not on file documented as of this encounter Visit Diagnoses Not on filedocumented in this encounter Care Teams Health Insurance Sales Agent Relationship Specialty Start Date End [place] [address] PCP - General Family Medicine 02/23/19 documented as of this encounter
--- OUTSIDE RECORDS SUMMARY | 2024-11-10 05:58 | XMS_ITS | Encounter Summary ---
Author Organization [facility] Healthcare Address [address] [place] [address] Care Team Providers Care Trading Assistant Name Role Phone Uriel Walker MD Primary Care Provider +1 [phone] Encounter Details Date Type Department Care Team (Late st Contact Info) Description 09/05/2023 Telephone [facility] [address] [facility] [place] [address] Roseann Galvan, DEREK [address] [facility] [address] Social History Tobacco Use Types Packs/Day Years [...] on file Legal Sex Female 1:53 AM MARKETING RECRUITER Gender Identity Female 11/22/2020 12:52 PM MARKETING RECRUITER Sexual Orientation Straight 11/22/2020 12 :52 PM MARKETING RECRUITER documented as of this encounter Miscellaneous Notes * Telephone Encounter - Malu Pizano - 09/05/2023 9:35 AM CDT Reminded patient to get lab work and urine test done by 09/09/23. documented in this encounter Plan of Treatment Not on file documented as of this encounter Visit Diagnoses Not on filedocumented in this encounter Care Teams Trading Assistant Relationship Specialty Start Date End Date Uriel Walker MD [address] [place] [address] PCP - General Family Medicine 02/23/19 documented as of this encounter
--- OUTSIDE RECORDS SUMMARY | 2024-11-10 05:58 | XMS_ITS | Encounter Summary ---
Author Organization [facility] Medical Group Address [address] [facility] [address] [place] [address] Care Team Providers Care Technical Buyer Name Role Phone Uriel Walker MD Primary Care Provider [phone] [phone] Encounter Details Date Type Department Care Team (Late st Contact Info) Description 05/23/2022 Orders Only [facility] Health Information Management [address] [place] [address] Scanning, Provider Social History Tobacco Use Types [...] on file Legal Sex Female 1:53 AM STRATEGIC SOURCING SPECIALIST Gender Identity Female 11/22/2020 12:52 PM STRATEGIC SOURCING SPECIALIST Sexual Orientation Straight 11/22/2020 12 :52 PM STRATEGIC SOURCING SPECIALIST documented as of this encounter Plan of Treatment Not on file documented as of this encounter Procedures Procedure Name Priority Date/Time Associated Diagnosis Comments SCAN - LABS 05/23/2022 9:05 PM CDT SCAN - LABS 05/23/2022 9:05 PM CDT documented in this encounter Results * SCAN - LABS (05/23/2022 9:05 PM CDT) us Provider Scanning Final Result * SCAN - LABS (05/23/2022 9:05 PM CDT) us Provider Scanning Final Result documented in this encounter Visit Diagnoses Not on filedocumented in this encounter Care Teams Technical Buyer Relationship Specialty Start Date End Date Uriel Walker MD [address] [place] [address] PCP - General Family Medicine 02/23/19 documented as of this encounter
--- OUTSIDE RECORDS SUMMARY | 2024-11-10 05:58 | XMS_ITS | Encounter Summary ---
Author Organization [facility] Medical Group Address [address] [facility] [address] [place] [address] Care Team Providers Care Auto Suspension And Steering Mechanic Name Role Phone Uriel Walker MD Primary Care Provider [phone] [phone] Encounter Details Date Type Department Care Team (Late st Contact Info) Description 05/20/2022 Orders Only [facility] Health Information Management [address] [place] [address] Scanning, Provider Social History Tobacco Use Types [...] file Legal Sex Female 1:53 AM DATA SUPPORT ANALYST Gender Identity Female 11/22/2020 12:52 PM DATA SUPPORT ANALYST Sexual Orientation Straight 11/22/2020 12 :52 PM DATA SUPPORT ANALYST documented as of this encounter Plan of Treatment Not on file documented as of this encounter Procedures Procedure Name Priority Date/Time Associated Diagnosis Comments SCAN - RADIOLOGY/IMAGING 05/20/2022 9:05 PM CDT SCAN - LABS 05/20/2022 9:05 PM CDT documented in this encounter Results * SCAN - LABS (05/20/2022 9:05 PM CDT) us Provider Scanning Final Result * SCAN - RADIOLOGY/IMAGING (05/20/2022 9:05 PM CDT) Anatomical Region Laterality Modality Other us Provider Scanning Final Result documented in this encounter Visit Diagnoses Not on filedocumented in this encounter Care Teams Auto Suspension And Steering Mechanic Relationship Specialty Start Date End Date Uriel Walker MD [address] [place] [address] PCP - General Family Medicine 02/23/19 documented as of this encounter
--- OUTSIDE RECORDS SUMMARY | 2024-11-10 05:58 | XMS_ITS | Encounter Summary ---
Author Organization [facility] Healthcare Address [address] [place] [address] Care Team Providers Care Production Helper Name Role Phone Uriel Walker MD Primary Care Provider [phone] [phone] Reason for Visit * Reason Onset Date Comments Prior Auth 10/08/2023 Ozempic Encounter Details Date Type Department Care Team (Late st Contact Info) Description 10/08/2023 Telephone Family Physicians [facility] [address] [place] [address] Uriel Walker MD [address] [place] [address] Prior Auth (Ozempic) Social History Tobacco Use Types Packs/Day [...] on file Legal Sex Female 1:53 AM PERSONNEL CONSULTANT Gender Identity Female 11/22/2020 12:52 PM PERSONNEL CONSULTANT Sexual Orientation Straight 11/22/2020 12 :52 PM PERSONNEL CONSULTANT documented as of this encounter Miscellaneous Notes * Telephone Encounter - Justine Balderas MA - 10/08/2023 2:16 PM CST PA started in Covermymeds for Ozempic Mix: [id number] Awaiting response ONNEL CONSULTANT documented in this encounter Plan of Treatment Not on file documented as of this encounter Visit Diagnoses Not on filedocumented in this encounter Care Teams Production Helper Relationship Specialty Start Date End Date Uriel Walker MD [address] [place] [address] PCP - General Family Medicine 02/23/19 documented as of this encounter
--- OUTSIDE RECORDS SUMMARY | 2024-11-10 05:58 | XMS_ITS | Encounter Summary ---
Author Organization [facility] Healthcare Address [address] [place] [address] Care Team Providers Care Circulating Process Inspector Name Role Phone Uriel Walker MD Primary Care Provider [phone] [phone] Encounter Details Date Type Department Care Team (Late st Contact Info) Description 09/23/2023 Telephone Family Physicians [facility] [address] [facility] [place] [address] Roseann Galvan, DEREK [address] [facility] [address] Social History Tobacco Use Types Packs/Day Years [...] on file Legal Sex Female 1:53 AM HEARING SCREENER Gender Identity Female 11/22/2020 12:52 PM HEARING SCREENER Sexual Orientation Straight 11/22/2020 12 :52 PM HEARING SCREENER documented as of this encounter Miscellaneous Notes * Telephone Encounter - Fred Weinberg - 09/23/2023 10:21 AM CST Contacted patient to let them know that we had some open lab orders that we needed to get collectedfrom them. Patient said they were busy today but could come tomorrow to get them collected. Notified the patient where our lab building is on site and notified them that blood and urine will need to be collected to come to the site hydrated. ING SCREENER documented in this encounter Plan of Treatment Not on file documented as of this encounter Visit Diagnoses Not on filedocumented in this encounter Care Teams Circulating Process Inspector Relationship Specialty Start Date End Date Uriel Walker MD [address] [place] [address] PCP - General Family Medicine 02/23/19 documented as of this encounter
--- OUTSIDE RECORDS SUMMARY | 2024-11-10 05:58 | XMS_ITS | Encounter Summary ---
Author Organization [facility] Healthcare Address [address] [place] [address] Care Team Providers Care Telegraphic Typewriter Operator Chief Name Role Phone Uriel Walker MD Primary Care Provider [phone] [phone] Reason for Visit * Reason Onset Date Comments Call Back 10/02/2023 Encounter Details Date Type Department Care Team (Late st Contact Info) Description 10/02/2023 Telephone [facility] [address] [place] [address] Uriel Walker MD [address] [place] [address] Call Back Social History Tobacco Use Types Packs/Day Years [...] on file Legal Sex Female 1:53 AM UNDERWRITING ASSISTANT Gender Identity Female 11/22/2020 12:52 PM UNDERWRITING ASSISTANT Sexual Orientation Straight 11/22/2020 12 :52 PM UNDERWRITING ASSISTANT documented as of this encounter Miscellaneous Notes * Telephone Encounter - Brandie Bhakta - 10/02/2023 11:16 AM CST Call Back Caller???s Concern: Patient called stating her dad has an insurance but he is not sure if she is onthe insurance, and he does not get off until 5pm so she will call back with information. Does message need to be routed? No RWRITING ASSISTANT * Telephone Encounter - Marguerite Valenzuela MA - 10/02/2023 11:09 AM CST Called patient to discuss insurance to do prior authorization for ozempic patient states that bcbs was canceled and was unsure if they got it back. Told patient to call back with updated insurance information for finish prior auth. RWRITING ASSISTANT documented in this encounter Plan of Treatment Not on file documented as of this encounter Visit Diagnoses Not on filedocumented in this encounter Care Teams Telegraphic Typewriter Operator Chief Relationship Specialty Start Date End [place] [address] PCP - General Family Medicine 02/23/19 documented as of this encounter
--- OUTSIDE RECORDS SUMMARY | 2024-11-10 05:58 | XMS_ITS | Encounter Summary ---
Author Organization [facility] Healthcare Address [address] [place] [address] Care Team Providers Care Manager Wind Name Role Phone Uriel Walker MD Primary Care Provider +1 [phone] Reason for Visit * Reason Onset Date Comments Medical Question/Miscellaneous 05/04/2024 Encounter Details Date Type Department Care Team (Late st Contact Info) Description 05/04/2024 Telephone Family Physicians [facility] [address] [place] [address] Uriel Walker MD [address] [place] [address] Medical Question/Miscellaneous Social History Tobacco Use Types [...] on file Legal Sex Female 1:53 AM SALES AGENT FOOD VENDING SERVICE Gender Identity Female 11/22/2020 12:52 PM SALES AGENT FOOD VENDING SERVICE Sexual Orientation Straight 11/22/2020 12 :52 PM SALES AGENT FOOD VENDING SERVICE documented as of this encounter Miscellaneous Notes * Telephone Encounter - Scarlett Rice - 05/07/2024 9:32 AM CDT Call Back Caller???s Concern: Patient called stating she's needing help with Virtual visit set up for her appointment today on 05/07/24, patient stated the last time she messed it up and wanted to get assistance this time, AC spoke with back line, AC relayed message per back line, AC unable to assist patientwith Loogla rodney but attempted to assist her using her email address on file to go and do e*check in and do virtual visit from there, patient stated someone from our office was calling her and AC andpatient disconnected the call. Does message need to be routed? No * Telephone Encounter - Korin Albarran MA - 05/04/2024 3:48 PM CDT Tried calling pt again since she is still not connected yet. LMOM. She will need to reschedule appointment since we are an hour past her original time. She can schedule for video or in person. * Telephone Encounter - Allen Jason - 05/04/2024 3:32 PM CDT Explained how to start visit. She will try to log in now. * Telephone Encounter - ZenFebruary - 05/04/2024 3:29 PM CDT Call Back Caller???s Concern: warm st to swetha k line Does message need to be routed? No * Telephone Encounter - Korin Albarran MA - 05/04/2024 3:00 PM CDT LMOM for pt to call office to see if she is still wanting to do video visit. * Telephone Encounter - Sharon Nelson - 05/04/2024 2:52 PM CDT Call Back Caller???s Concern: Caller had 2:45 Video appt. No one ever responded in mychart - Luis Carlos , per back line, okay to warm transfer Does message need to be routed? No documented in this encounter Plan of Treatment Not on file documented as of this encounter Visit Diagnoses Not on filedocumented in this encounter Care Teams Manager Wind Relationship Specialty Start Date End Date Uriel Walker MD [address] [place] [address] PCP - General Family Medicine 02/23/19 documented as of this encounter
--- OUTSIDE RECORDS SUMMARY | 2024-11-10 05:58 | XMS_ITS | Encounter Summary ---
Author Organization [facility] Medical Group Address [address] [facility] [address] [place] [address] Care Team Providers Care Certified Flex Endoscope Reprocessor Name Role Phone Uriel Walker MD Primary Care Provider [phone] [phone] Encounter Details Date Type Department Care Team (Late st Contact Info) Description 03/01/2022 Orders Only [facility] [address] [place] [address] Scanning, Provider Social History Tobacco Use Types [...] on file Legal Sex Female 1:53 AM CONSULTATIVE SALES ASSOCIATE Gender Identity Female 11/22/2020 12:52 PM CONSULTATIVE SALES ASSOCIATE Sexual Orientation Straight 11/22/2020 12 :52 PM CONSULTATIVE SALES ASSOCIATE documented as of this encounter Plan of Treatment Not on file documented as of this encounter Procedures Procedure Name Priority Date/Time Associated Diagnosis Comments SCAN - LABS 03/01/2022 documented in this encounter Results * SCAN - LABS (03/01/2022) us Provider Scanning Final Result documented in this encounter Visit Diagnoses Not on filedocumented in this encounter Care Teams Certified Flex Endoscope Reprocessor Relationship Specialty Start Date End Date Uriel Walker MD [address] [place] [address] PCP - General Family Medicine 02/23/19 documented as of this encounter
--- OUTSIDE RECORDS SUMMARY | 2024-11-10 05:58 | XMS_ITS | Encounter Summary ---
Author Organization [facility] Medical Group Address [address] [facility] [address] [place] [address] Care Team Providers Care Production Line Worker Name Role Phone Uriel Walker MD Primary Care Provider [phone] [phone] Encounter Details Date Type Department Care Team (Late st Contact Info) Description 05/22/2022 Orders Only [facility] [address] [place] [address] Scanning, Provider Social History Tobacco Use Types [...] on file Legal Sex Female 1:53 AM ALPACA FARMER Gender Identity Female 11/22/2020 12:52 PM ALPACA FARMER Sexual Orientation Straight 11/22/2020 12 :52 PM ALPACA FARMER documented as of this encounter Plan of Treatment Not on file documented as of this encounter Procedures Procedure Name Priority Date/Time Associated Diagnosis Comments SCAN - LABS 05/22/2022 9:05 PM CDT documented in this encounter Results * SCAN - LABS (05/22/2022 9:05 PM CDT) us Provider Scanning Final Result documented in this encounter Visit Diagnoses Not on filedocumented in this encounter Care Teams Production Line Worker Relationship Specialty Start Date End Date Uriel Walker MD [address] [place] [address] PCP - General Family Medicine 02/23/19 documented as of this encounter
--- OUTSIDE RECORDS SUMMARY | 2024-11-10 05:58 | XMS_ITS | Encounter Summary ---
Author Organization [facility] Medical Group Address [address] [facility] [address] [place] [address] Care Team Providers Care Permastone Mechanic Name Role Phone Uriel Walker MD Primary Care Provider [phone] [phone] Reason for Visit * Reason Onset Date Comments Medication Request 07/29/2023 Encounter Details Date Type Department Care Team (Late st Contact Info) Description 07/29/2023 Telephone Family Physicians [facility] [address] [place] [address] Uriel Walker MD [address] [place] [address] Medication Request Social History Tobacco [...] on file Legal Sex Female 1:53 AM RESTORATION OFFICER Gender Identity Female 11/22/2020 12:52 PM RESTORATION OFFICER Sexual Orientation Straight 11/22/2020 12 :52 PM RESTORATION OFFICER documented as of this encounter Ordered Prescriptions Prescription Sig Dispense Quantity Refills Last Filled Start Date End Date lancets misc 1 each by other route 2 (two) times a day 200 each 3 07/30/2023 blood-glucose meter misc Use daily or as directed for monitoring of diabetes. 1 each 07/30/2023 blood glucose diagnostic (glucose blood) strip 1 each by other route 2 (two) times a day 200 each 3 07/30/2023 3 documented in this encounter Miscellaneous Notes * Telephone Encounter - Joleen Frye MA - 07/30/2023 8:01 AM CDT Sent new scripts to [facility] * Telephone Encounter - Debbi Mckeon - 07/29/2023 3:57 PM CDT Medication Question/Clarification Medication Name(s): onetouch verio test strips What is the question or clarification needed? Onetouch products are not covered by patients insurance If needed, Pharmacy(s) medication(s) should be sent to: [facility] Caller???s Callback #: [phone] Additional Comments: please send rxs for contour brand strips, meter, and lancet Does message need to be routed? Yes-Action Needed documented in this encounter Plan of Treatment Not on file documented as of this encounter Visit Diagnoses Not on filedocumented in this encounter Care Teams Permastone Mechanic Relationship Specialty Start Date End [place] [address] PCP - General Family Medicine 02/23/19 documented as of this encounter
--- OUTSIDE RECORDS SUMMARY | 2024-11-10 05:58 | XMS_ITS | Encounter Summary ---
Author Organization [facility] Medical Group Address [address] [facility] [address] [place] [address] Care Team Providers Care Heel Washer Stringing Machine Operator Name Role Phone Uriel Walker MD Primary Care Provider +1 [phone] Encounter Details Date Type Department Care Team (Late st Contact Info) Description 02/13/2023 [facility] [address] [place] [address] Scanning, Provider Social History Tobacco Use Types [...] on file Legal Sex Female 1:53 AM MOTORCYCLE SALES ASSOCIATE Gender Identity Female 11/22/2020 12:52 PM MOTORCYCLE SALES ASSOCIATE Sexual Orientation Straight 11/22/2020 12 :52 PM MOTORCYCLE SALES ASSOCIATE documented as of this encounter Plan of Treatment Not on file documented as of this encounter Procedures Procedure Name Priority Date/Time Associated Diagnosis Comments SCAN - RADIOLOGY/IMAGING 02/13/2023 SCAN - LABS 02/13/2023 documented in this encounter Results * SCAN - LABS (02/13/2023) us Provider Scanning Final Result * SCAN - RADIOLOGY/IMAGING (02/13/2023) Anatomical Region Laterality Modality Other us Provider Scanning Edited Result - Final documented in this encounter Visit Diagnoses Not on filedocumented in this encounter Care Teams Heel Washer Stringing Machine Operator Relationship Specialty Start Date End Date Uriel Walker MD [address] [place] [address] PCP - General Family Medicine 02/23/19 documented as of this encounter
--- OUTSIDE RECORDS SUMMARY | 2024-11-10 05:58 | XMS_ITS | Encounter Summary ---
Author Organization [facility] Medical Group Address [address] [facility] [address] [place] [address] Care Team Providers Care Spring Crater Name Role Phone Uriel Walker MD Primary Care Provider +1 -[phone] Encounter Details Date Type Department Care Team (Late st Contact Info) Description 07/25/2023 Orders Only [facility] [address] [place] [address] Uriel Walker MD [address] [place] [address] Social History Tobacco Use Types Packs/Day Years [...] on file Legal Sex Female 1:53 AM OUTDOOR GUIDE Gender Identity Female 11/22/2020 12:52 PM OUTDOOR GUIDE Sexual Orientation Straight 11/22/2020 12 :52 PM OUTDOOR GUIDE documented as of this encounter Ordered Prescriptions Prescription Sig Dispense Quantity Refills Last Filled Start Date End Date blood glucose diagnostic (Contour Next Test Strips) strip 1 each by other route 2 (two) times a day 200 strip 3 07/25/2023 08/01/2023 documented in this encounter Plan of Treatment Not on file documented as of this encounter Visit Diagnoses Not on filedocumented in this encounter Discontinued Medications Medication Sig Discontinue Reason Start Date End Da te blood glucose diagnostic (Contour Next Test Strips) strip 1 each by other route 2 (two) times a day Reorder 06/06/2023 07/25/2023 documented as of this encounter Care Teams Spring Crater Relationship Specialty Start Date End Date Uriel Walker MD [address] [place] [address] PCP - General Family Medicine 02/23/19 documented as of this encounter
--- OUTSIDE RECORDS SUMMARY | 2024-11-10 05:58 | XMS_ITS | Encounter Summary ---
Author Organization [facility] Medical Group Address [address] [place] [address] Care Team Providers Care Campus Police Officer Name Role Phone Uriel Walker MD Primary Care Provider +1 [phone] Encounter Details Date Type Department Care Team (Late st Contact Info) Description 08/01/2023 Telephone Family Physicians [facility] [address] [place] [address] Uriel Walker MD [address] [place] [address] Social History Tobacco Use Types Packs/Day Years [...] on file Legal Sex Female 1:53 AM SPECIAL EFFECTS SPECIALIST Gender Identity Female 11/22/2020 12:52 PM SPECIAL EFFECTS SPECIALIST Sexual Orientation Straight 11/22/2020 12 :52 PM SPECIAL EFFECTS SPECIALIST documented as of this encounter Miscellaneous Notes * Telephone Encounter - May Reyes MA - 08/01/2023 1:54 PM CDT RECEIVED FAX STATING INSURANCE WON' COVER CONTOUR METER, REQUESTING ALTERNATIVE THANKS documented in this encounter Plan of Treatment Not on file documented as of this encounter Visit Diagnoses Not on filedocumented in this encounter Care Teams Campus Police Officer Relationship Specialty Start Date End [place] [address] PCP - General Family Medicine 02/23/19 documented as of this encounter
--- OUTSIDE RECORDS SUMMARY | 2024-11-10 05:58 | XMS_ITS | Encounter Summary ---
Author Organization [facility] Healthcare Address [address] [place] [address] Care Team Providers Care Library Supervisor Name Role Phone Uriel Walker MD Primary Care Provider [phone] [phone] Encounter Details Date Type Department Care Team (Late st Contact Info) Description 01/04/2024 Orders Only [facility] [place] [facility] Information Management [address] [place] [id number] Scanning, Provider Social History Tobacco Use [...] on file Legal Sex Female 1:53 AM MIXING TANK OPERATOR Gender Identity Female 11/22/2020 12:52 PM MIXING TANK OPERATOR Sexual Orientation Straight 11/22/2020 12 :52 PM MIXING TANK OPERATOR documented as of this encounter Plan of Treatment Not on file documented as of this encounter Procedures Procedure Name Priority Date/Time Associated Diagnosis Comments SCAN - RADIOLOGY/IMAGING 01/04/2024 documented in this encounter Results * SCAN - RADIOLOGY/IMAGING (01/04/2024) Anatomical Region Laterality Modality Other us Provider Scanning Final Result documented in this encounter Visit Diagnoses Not on filedocumented in this encounter Care Teams Library Supervisor Relationship Specialty Start Date End Date Uriel Walker MD [address] [place] [address] PCP - General Family Medicine 02/23/19 documented as of this encounter
--- OUTSIDE RECORDS SUMMARY | 2024-11-10 05:58 | XMS_ITS | Encounter Summary ---
Author Organization [facility] Medical [facility] Address [address] [place] [address] Care Team Providers Care Drafter Automotive Design Layout Name Role Phone Uriel Walker MD Primary Care Provider +1 [phone] Reason for Visit * Reason Comments Follow-up To check to see if d iabetic Encounter Details Date Type Department Care Team (Late st Contact Info) Description 06/06/2023 4:30 PM CDT Office Visit [facility] of [address] [address] Roseann Galvan, DEREK [address] [place] [address] New onset type 2 diabetes mellitus (CMS/HCC) (HCC) (Primary Dx); Acute right-sided low back pain with right-sided sciatica; Thyroid disorder screening; Encounter for screening for lipoid disorders; Morbid obesity with body mass index of 50 or higher (HCC); Morbid obesity with BMI of 50.0-59.9, adult (HCC) Social History Tobacco Use Types [...] on file Legal Sex Female 1:53 AM SHOP DIRECTOR Gender Identity Female 11/22/2020 12:52 PM SHOP DIRECTOR Sexual Orientation Straight 11/22/2020 12 :52 PM SHOP DIRECTOR documented as of this encounter Last Filed Vital Signs Vital Sign Reading Time Taken Comments Blood Pressure 130/88 06/06/2023 4:17 PM CDT Pulse 100 06/06/2023 4:17 PM CDT Temperature 37.1 ??C (98.8 ??F) 06/06/2023 4:17 PM CD T Respiratory Rate 18 06/06/2023 4:17 PM CDT Oxygen Saturation 98% 06/06/2023 4:17 PM CDT Inhaled Oxygen Concentration - - Weight 140.1 kg (308 lb 12.8 oz) 06/06/2023 4:17 PM CDT Height 165.1 cm (5' 5 ) 06/06/2023 4:17 PM CDT Body Mass Index 51.39 06/06/2023 4:17 PM CDT documented in this encounter Patient Instructions * Patient Instructions* Roseann Galvan NP - 06/06/2023 4:30 PM CDT Repeat labs prior to follow up in 3 months. documented in this encounter Ordered Prescriptions Prescription Sig Dispense Quantity Refills Last Filled Start Date End Date lancets (Microlet Lancet) misc 5-9 each by other route as directed 200 each 3 06/06/2023 3 blood glucose diagnostic (Contour Next Test Strips) strip 1 each by other route 2 (two) times a day 200 strip 3 06/06/2023 3 metFORMIN (GLUCOPHAGE) 500 mg tabletIndications: New onset type 2 diabetes mellitus (CMS/HCC) (HCC) Take 1 tablet (500 mg total) by mouth 2 (two) times a day with meals 60 tablet 11 06/06/2023 4 documented in this encounter Progress Notes * Roseann Galvan NP - 06/06/2023 4:30 PM CDT Images from the original note were not included. [facility] Chief Complaint. Chief Complaint Patient presents with Follow-up To check to see if diabetic HPI. Patient is a 22 y.o. female Patient is a 22-year-old female with a past medical history of gestational diabetes here today for routine follow-up and discussion for concerns of diabetes. A1c = 7.9% today in office. Has been checking BG for the past week, am fasting 170. Denies excessive thirst or urination. Patient reports she had gestational diabetes with both pregnancies, did not have a chance to be tested in between pregnancies. Children were born, 05/2022 and 07/2021. She currently has IUD, Mirena. Occasional spotting. She reports she has been experiencing worsening sciatica pain. Has always experienced intermittent low right-sided back pain with sciatic but has been occurring almost daily last month. Pain down posterior right glute and thigh radiating all the way to foot. No weakness, no bowel or bladder disturbance. Past Medical History: Diagnosis Date Fatty liver disease, nonalcoholic 05/03/2016 Hx of migraine headaches Morbid obesity with BMI of 40.0-44.9, adult (HCC) Seasonal allergies HOME MEDICATIONS : blood glucose diagnostic (CONTOUR NEXT TEST STRIPS) strip lancets (MICROLET LANCET) misc blood glucose diagnostic (Contour Next Test Strips) strip lancets (Microlet Lancet) [facility] [place]MIN (GLUCOPHAGE) 500 mg tablet triamcinolone (KENALOG) 0.1 % ointment No Known Allergies Social History Tobacco Use [...] leg swelling. Gastrointestinal: Negative for constipation. Musculoskeletal: Negative for arthralgias. Neurological: Negative for dizziness and headaches. BP 130/88 (BP Location: Right arm, Patient Position: Sitting) Pulse 100 Temp 37.1 ??C (98.8 ??F) (Oral) Resp 18 Ht 165.1 cm (5' 5 ) Wt (!) 140.1 kg (308 lb 12.8 oz) SpO2 98% BMI 51.39 kg/m?? Physical Exam: Physical Exam Constitutional: General: [...] motion. Cervical back: Normal range of motion. Skin: General: Skin is warm and dry. Neurological: Mental Status: She is alert and oriented to person, place, and time. Psychiatric: Behavior: Behavior normal. Thought Content: Thought content normal. Assessment & Plan: Diagnoses and all orders for this visit: New onset type 2 diabetes mellitus (CMS/HCC) ([facility]) (Primary) Assessment & Plan: New; patient has glucometer and testing supplies. Instructed to continue checking glucose daily. Will start metformin 500 mg daily x 2 weeks and then increase to 500 mg twice daily. Patient to repeatlabs in 3 months, prior to office follow up. We discussed diet and exercise recommendations, patient to immediately cut out soda and fast foods. Orders: - POCT hemoglobin A1c - metFORMIN (GLUCOPHAGE) 500 mg tablet; Take 1 tablet (500 mg total) by mouth 2 (two) times a day with meals - Comprehensive metabolic panel; Future - CBC with auto differential; Future - Hemoglobin A1c; Future - Albumin Creatinine Ratio, Urine; Future Acute right-sided low back pain with right-sided sciatica Assessment & Plan: Reviewed benefits of weight loss. Recommended eval and tx with PT. Low back and sciatic pain increased following recent pregnancies. Continue ibuprofen as needed. Orders: - Ambulatory referral order to Physical Therapy -; Future Thyroid disorder screening - TSH reflex to free T4; Future Encounter for screening for lipoid disorders Assessment & Plan: Labs ordered today. Orders: - Lipid panel; Future Morbid obesity with body mass index of 50 or higher (HCC) Assessment & Plan: Patient is aware of need for weight loss. She reports for the past week she has tried to focus on making healthier purchases in the grocery store. Has not been drinking cross soda for the past week. Other orders - blood glucose diagnostic (Contour Next Test Strips) strip; 1 each by other route 2 (two) times a day - lancets (Microlet Lancet) misc; 5-9 each by other route as directed Roseann Galvan NP We discussed dose, use, [...] due to use of voice recognition software. documented in this encounter Miscellaneous Notes * Assessment & Plan Note - Roseann Galvan NP - 06/06/2023 5:36 PM CDT Associated Problem(s): Acute right-sided low back pain with right-sided sciatica Reviewed benefits of weight loss. Recommended eval and tx with PT. Low back and sciatic pain increased following recent pregnancies. Continue ibuprofen as needed. * Assessment & Plan Note - Roseann Galvan NP - 06/06/2023 5:34 PM CDT Associated Problem(s): Encounter for screening for lipoid disorders Labs ordered today. * Assessment & Plan Note - Roseann Galvan NP - 06/06/2023 5:34 PM CDT Associated Problem(s): Morbid obesity with BMI of 50.0-59.9, adult ([facility]) Patient is aware of need for weight loss. She reports for the past week she has tried to focus on making healthier purchases in the grocery store. Has not been drinking cross soda for the past week. * Assessment & Plan Note - Roseann Galvan NP - 06/06/2023 5:32 PM CDT Associated Problem(s): Type 2 diabetes mellitus with hyperglycemia, without long-term current use of insulin ([facility]) New; patient has glucometer and testing supplies. Instructed to continue checking glucose daily. Will start metformin 500 mg daily x 2 weeks and then increase to 500 mg twice daily. Patient to repeatlabs in 3 months, prior to office follow up. We discussed diet and exercise recommendations, patient to immediately cut out soda and fast foods. * Addendum Note - Lalitha Muniz - 06/06/2023 4:30 PM CDTAddended by: LALITHA MUNIZ on: 10/06/2023 12:00 PM Modules accepted: Orders DIRECTOR documented in this encounter Plan of Treatment Not on file documented as of this encounter Procedures Procedure Name Priority Date/Time Associated Diagnosis Comments POCT HEMOGLOBIN A1C Routine 06/06/2023 4 :32 PM CDT New onset type 2 diabetes mellitus (CMS/HCC) ([facility]) documented in this encounter Results * (ABNORMAL) Lipid panel (10/06/2023 12:19 PM SHOP DIRECTOR) Cholesterol 169 30 - 199 mg/dL CONNIE [...] last revised on 2018. Testing performed by: [facility], [address] [place] [address]., [address] Triglycerides 162(H) <=149 mg/dL [facility] ([place]) [...] last revised on 2018. Testing performed by: [facility], [address] [place] [address]., [address] HDL 31(L) >=40 mg/dL [facility] ([place]) [...] last revised on 2018. Testing performed by: [facility], [address] [place] [address]., [address] LDL, calculated 106 <=129 mg/dL CON[facility]IE [facility] [...] last revised on 2018. Testing performed by: [facility], [address] [place] [address]., [address] Non-HDL Cholesterol 138 mg/dL [facility] [place] ([place]) [...] last revised on 2018. Testing performed by: [facility], [address] [place] [address]., [address] Chol/HDL ratio 5 [facility] ([place]) Comment:Testing performed by : [address], [address] Blood 10/06/2023 12:1 9 PM SHOP DIRECTOR 10/06/2023 6:05 PM SHOP DIRECTOR Roseann Galvan BROKER LAB BLOOD ORDERABLES Final Result [facility] ([place]) 1 [facility] Department [place] [address] * Comprehensive metabolic panel (10/06/2023 12:19 PM SHOP DIRECTOR) Sodium 137 135 - 145 mmol/L [facility] ([place]) Comment:Testing performed by : [address], [address] Potassium, pl 4.3 3.3 - 4.9 mmol/L [facility] ([place]) Comment:Testing performed by : [address] [address] Chloride 102 97 - 110 mmol/L [facility] ([place]) Comment:Testing performed by : [address], [address] CO2 27 22 - 32 mmol/L [facility] ([place]) Comment:Testing performed by : [address], [address] Anion gap 8 2 - 15 mmol/L [facility] ([place]) Comment:Testing performed by : [address], [address] BUN 8 6 - 25 mg/dL [facility] ([place]) Comment:Testing performed by : [address], [address] Creatinine 0.66 0.60 - 1.10 mg/dL [facility] ([place]) Comment:Testing performed by : [address] [address] Glucose 194 70 - 199 mg/dL CERNER [...] was last revised 2022. Testing performed by: [address] [address] Calcium 9.7 8.5 - 10.3 mg/dL [facility] ([place]) Comment:Testing performed by : [address] [address] Bilirubin, total 0.6 0.1 - 1.2 mg/dL [facility] ([place]) Comment:Testing performed by : [address] [address] Protein, pl 7.3 6.5 - 8.5 g/dL [facility] ([place]) Comment:Testing performed by : [address], [address] Albumin 4.0 3.5 - 5.0 g/dL [facility] ([place]) Comment:Testing performed by : [address], [address] Alk phos 94 40 - 130 Units/L [facility] ([place]) Comment:Testing performed by : [address] [address] ALT 25 7 - 45 Units/L [facility] ([place]) Comment:Testing performed by : [address], [address] AST 22 10 - 45 Units/L [facility] ([place]) Comment:Testing performed by : [facility], [address], [place]., [address] Blood 10/06/2023 12:1 9 PM SHOP DIRECTOR 10/06/2023 6:05 PM SHOP DIRECTOR Roseann Galvan BROKER LAB BLOOD ORDERABLES Final Result [facility] ([place]) 1 [facility] Department [place] [address] * (ABNORMAL) CBC with auto differential (10/06/2023 12:19 PM SHOP DIRECTOR) WBC 6.4 3.8 - 9.9 K/cumm [facility] ([place]) Comment:Testing performed by : [address], [address] Hgb 13.7 11.9 - 15.5 g/dL [facility] ([place]) Comment: Interpretive Data A reference range for this assay has not been established for patients with an unknown legal sex. Please refer to the laboratory test catalog for established sex-specific reference intervals. Current interpretive data was last revised on 2023. Testing performed by: [address] [address] Hct 44.3 35.6 - 45.5 % [facility] ([place]) Comment: Interpretive Data A reference range for this assay has not been established for patients with an unknown legal sex. Please refer to the laboratory test catalog for established sex-specific reference intervals. Current interpretive data was last revised on 2023. Testing performed by: [address] [address] Plt 339 150 - 400 K/cumm [facility] ([place]) Comment:Testing performed by : [address] [address] MPV 9.2 9.1 - 12.3 fL [facility] ([place]) Comment:Testing performed by : [address] [address] RBC 5.11 3.90 - 5.20 M/cumm [facility] ([place]) Comment: Interpretive Data A reference range for this assay has not been established for patients with an unknown legal sex. Please refer to the laboratory test catalog for established sex-specific reference intervals. Current interpretive data was last revised on 2023. Testing performed by: [facility], [address] [place] [address]., [address] MCV 86.7 81.3 - 96.4 fL [facility] ([place]) Comment:Testing performed by : [address], [address] MCH 26.8(L) 27.1 - 33.3 pg [facility] ([place]) Comment:Testing performed by : [address], [address] MCHC 30.9(L) 32.3 - 35.7 g/dL [facility] ([place]) Comment:Testing performed by : [address], [address] RDW CV 13.0 11.1 - 14.9 % [facility] ([place]) Comment:Testing performed by : [address], [address] RDW SD 40.2 35.7 - 48.1 fL [facility] ([place]) Comment:Testing performed by : [address], [address] NRBC abs 0.00 0.00 - 0.01 K/cumm [facility] ([place]) Comment:Testing performed by : [address], [address] Blood 10/06/2023 12:1 9 PM SHOP DIRECTOR 10/06/2023 6:05 PM SHOP DIRECTOR Roseann Galvan NP LAB BLOOD ORDERABLES Final Result [facility] ([place]) 1 [facility] Department of Laboratories [place], [place] [id number] * (ABNORMAL) Hemoglobin A1c (10/06/2023 12:19 PM SHOP DIRECTOR) Hgb A1C 7.5(H) 4.0 - 5.6 % [facility] ([place]) Comment:Testing performed by : [address] [place]., [address] Estimated Average Glucose 169 mg/dL [facility] ([place]) Comment: The ADA recommends reporting an estimated Average Glucose (eAG) with all Hemoglobin A1c results using the equation derived from a study of 507 normal and diabetic adults. ??Minority populations were underrepresented and children were not included. ?? (Diabetes Care 31:5430-5039, 2007). ??The eAG is not equivalent to a fasting glucose. Testing performed by: [address] [address] Blood 10/06/2023 12:1 9 PM SHOP DIRECTOR 10/06/2023 6:05 PM SHOP DIRECTOR Roseann Galvan LAB BLOOD ORDERABLES Final Result Performing Organization Address [facility]/ZIP Co de Phone Number [facility] 1 [facility] [place] [address] * TSH reflex to free T4 (10/06/2023 12:19 PM SHOP DIRECTOR) Pathologist [facility] TSH 2.46 0.30 - 4.20 mcIUnit/mL [facility] ([place]) Comment:Testing performed by : [address], [address] Blood 10/06/2023 12:1 9 PM SHOP DIRECTOR 10/06/2023 6:05 PM SHOP DIRECTOR Roseann Galvan BROKER LAB BLOOD ORDERABLES Final Result Performing Organization Address City/[facility] Co de Phone Number [facility] ([place]) 1 [place] [address] * Albumin Creatinine Ratio, Urine (10/06/2023 12:19 PM SHOP DIRECTOR) Pathologist [facility] Albumin Ur <12.0 mg/L [facility] ([facility] Comment: Interpretive Data No reference range established. Current interpretive data was last revised 2019. Testing performed by: [address], [address] Creatinine Ur 214.2 mg/dL CONN[facility] ([place]) Comment: Interpretive Data No reference range established. Current interpretive data was last revised 2019. Testing performed by: [facility], [address] [place] [address]., [address] Albumin Creatinine Ratio, Ur <6 1 - 29 mg/g [facility] ([place]) Comment:Testing performed by : [facility], [address] [place] [address]., [address] Urine 10/06/2023 12:1 9 PM SHOP DIRECTOR 10/06/2023 6:05 PM SHOP DIRECTOR us Roseann Galvan NP LAB URINE ORDERABLES Final Result [facility] ([place]) 1 [facility] Department [place] [address] * (ABNORMAL) POCT hemoglobin A1c (06/06/2023 4:32 PM CDT) Hemoglobin A1C, POC 7.9 % Capillary blood 06/06/2023 4 :32 PM CDT us Roseann Galvan NP POINT OF CARE TEST ORDERABL ES Final Result documented in this encounter Visit Diagnoses Diagnosis New onset type 2 diabetes mellitus (CMS/HCC) (HCC)- Primary Acute right-sided low back pain with right-sided sciatica Thyroid disorder screening Screening for thyroid disorder Encounter for screening for lipoid disorders Morbid obesity with body mass index of 50 or higher (HCC) Morbid obesity with BMI of 50.0-59.9, adult (HCC) documented in this encounter Discontinued Medications Medication Sig Discontinue Reason Start Date End Da te blood glucose diagnostic (CONTOUR NEXT TEST STRIPS) strip Use to test blood sugar twice daily or as directed. Reorder 08/25/2018 06/06/2023 triamcinolone (KENALOG) 0.1 % ointment APPLY TOPICALLY TWICE DAILY TO DORSAL HAND FOR UP TO 14 DAYS Therapy completed 10/06/2019 06/06/2023 lancets (MICROLET LANCET) misc 5-9 each Reorder 08/25/2018 06/06/2023 documented as of this encounter Care Teams Drafter Automotive Design Layout Relationship Specialty Start Date End Date Uriel Walker MD [address] [place] [address] PCP - General Family Medicine 02/23/19 documented as of this encounter
--- OUTSIDE RECORDS SUMMARY | 2024-11-10 05:58 | XMS_ITS | Encounter Summary ---
Author Organization [facility] Healthcare Address [address] [place] [address] Care Team Providers Care Vertical Lathe Operator Name Role Phone Uriel Walker MD Primary Care Provider +1 [phone] Encounter Details Date Type Department Care Team (Late st Contact Info) Description 03/03/2024 Telephone Family Physicians [facility] [address] [facility] [place] [address] Roseann Galvan, DEREK [address] [facility] [place] [address] Social History Tobacco Use Types Packs/Day Years [...] on file Legal Sex Female 1:53 AM AIR BATTLE MANAGER Gender Identity Female 11/22/2020 12:52 PM AIR BATTLE MANAGER Sexual Orientation Straight 11/22/2020 12 :52 PM AIR BATTLE MANAGER documented as of this encounter Miscellaneous Notes * Telephone Encounter - Malu Pizano - 03/03/2024 10:24 AM CDT LMOR - needs lab work done prior to 03/09/24 appt documented in this encounter Plan of Treatment Not on file documented as of this encounter Visit Diagnoses Not on filedocumented in this encounter Care Teams Vertical Lathe Operator Relationship Specialty Start Date End Date Uriel Walker MD [address] [place] [address] PCP - General Family Medicine 02/23/19 documented as of this encounter
--- OUTSIDE RECORDS SUMMARY | 2024-11-10 05:58 | XMS_ITS | Encounter Summary ---
Author Organization [facility] Medical Group Address [address] [facility] [address] [place] [address] Care Team Providers Care Pelletizer Operator Name Role Phone Uriel Walker MD Primary Care Provider [phone] [phone] Encounter Details Date Type Department Care Team (Late st Contact Info) Description 04/06/2023 [facility] [address] [place] [address] Scanning, Provider Social History Tobacco Use Types [...] on file Legal Sex Female 1:53 AM TIRE MOLD TESTER Gender Identity Female 11/22/2020 12:52 PM TIRE MOLD TESTER Sexual Orientation Straight 11/22/2020 12 :52 PM TIRE MOLD TESTER documented as of this encounter Plan of Treatment Not on file documented as of this encounter Procedures Procedure Name Priority Date/Time Associated Diagnosis Comments SCAN - RADIOLOGY/IMAGING 04/06/2023 SCAN - LABS 04/06/2023 documented in this encounter Results * SCAN - LABS (04/06/2023) us Provider Scanning Final Result * SCAN - RADIOLOGY/IMAGING (04/06/2023) Anatomical Region Laterality Modality Other us Provider Scanning Final Result documented in this encounter Visit Diagnoses Not on filedocumented in this encounter Care Teams Pelletizer Operator Relationship Specialty Start Date End Date Uriel Walker MD [address] [place] [address] PCP - General Family Medicine 02/23/19 documented as of this encounter
--- OUTSIDE RECORDS SUMMARY | 2024-11-10 05:59 | XMS_ITS | Encounter Summary ---
Author Organization [facility] Address [address] [place] [address] Care Team Providers Care Occ Therapist Name Role Phone Uriel Walker MD Primary Care Provider [phone] [phone] Encounter Details Date Type Department Care Team (Late st Contact Info) Description 06/27/2020 Orders Only [facility] [address] [place] [address] [place] [address] [facility] [address] [place] [address] Pain radiating to lower abdomen; Colicky RUQ abdominal pain Social History Tobacco Use Types Packs/Day Years [...] Recorded PHQ-2 Total Score 0 06/26/2020 Comments No Sex and Gender Information Value Date Recorded Sex Assigned at Not on file Legal Sex Female 1:53 AM FOLLOW UP CLERK Gender Identity Female 11/22/2020 12:52 PM FOLLOW UP CLERK Sexual Orientation Straight 11/22/2020 12 :52 PM FOLLOW UP CLERK documented as of this encounter Plan of Treatment Not on file documented as of this encounter Procedures Procedure Name Priority Date/Time Associated Diagnosis Comments CT ABDOMEN PELVIS W CONTRAST Schedule CINTHYA, Read CINTHYA (Appt Today, Awaiting Results) 06/26/2020 Pain radiating to lower abdomen Colicky RUQ abdominal pain documented in this encounter Results * CT Abdomen Pelvis W Contrast (06/26/2020) Anatomical Region Laterality Modality Body N/A Computed Tomogra phy us Lydia Rachel Copeland C S S REPRESENTATIVE IMG CT PROCEDURES Final R esult documented in this encounter Visit Diagnoses Diagnosis Pain radiating to lower abdomen Colicky RUQ abdominal pain documented in this encounter Care Teams Occ Therapist Relationship Specialty Start Date End Date Uriel Walker MD [address] [place] [address] PCP - General Family Medicine 02/23/19 documented as of this encounter
--- OUTSIDE RECORDS SUMMARY | 2024-11-10 05:59 | XMS_ITS | Encounter Summary ---
Author Organization [facility] Address [address] [place] [address] Care Team Providers Care Learning Services Coordinator Name Role Phone Uriel Walker MD Primary Care Provider [phone] [phone] Reason for Referral * Diagnostic Imaging (Routine) - Closed Specialty Diagnoses / Procedures Referred By Contac t Referred To Contact Diagnoses Pain radiating to lower abdomen Colicky RUQ abdominal pain Procedures CT Abdomen Pelvis W Contrast Lydia Copeland NP Phone: tel: fax: External Order Referral ID Status Reason Start Date Expiration Date Visits Re quested Visits Authorized [id number] Closed 06/26/2020 07/26/2021 1 1 Reason for Visit * Reason Comments Abdominal Pain Mid last week notice d below the navel, past 4-5 days above the navel and then radiates to the upper R side. Constant pain, worse at night. Painful [place] Sexually active, not iced in the last 2 days that intercourse has been painfull in the cervix area. Pt is currently not taking BC and no protection used. LMP - believes May 28, 2020, normally irregular. Encounter Details Date Type Department Care Team (Late st Contact Info) Description 06/26/2020 11:30 AM CDT Office Visit [facility] [address] [place] [address] [place] [address] [place] [address] Pain radiating to lower abdomen (Primary Dx); Colicky RUQ abdominal pain; Prediabetes; Secondary oligomenorrhea; Encounter for counseling regarding contraception; Encounter for screening for lipoid disorders; Morbid obesity with BMI of 45.0-49.9, adult ([facility]) Social History Tobacco Use Types Packs/Day Years [...] on file Legal Sex Female 1:53 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 Gender Identity Female 11/22/2020 12:52 PM MONUMENT STONECUTTER Sexual Orientation Straight 11/22/2020 12 :52 PM MONUMENT STONECUTTER documented as of this encounter Last Filed Vital Signs Vital Sign Reading Time Taken Comments Blood Pressure 120/80 06/26/2020 11:37 AM CDT Pulse 78 06/26/2020 11:37 AM CDT Temperature 37.1 ??C (98.7 ??F) 06/26/2020 1 1:37 AM CDT Respiratory Rate 18 06/26/2020 11:3 7 AM CDT Oxygen Saturation 98% 06/26/2020 11: 37 AM CDT Inhaled Oxygen Concentration - - Weight 131.6 kg (290 lb 3.2 oz) 020 11:37 AM CDT Height 167.6 cm (5' 6 ) 06/26/2020 11:3 7 AM CDT Body Mass Index 46.84 06/26/2020 11:37 AM CDT Body Mass Index Percentile 99.86% 06/26 11:37 AM CDT Growth Chart: [facility] (Girls, 2- 20 Years) documented in this encounter Progress Notes * Lydia Copeland MEDICAL SPECIALIST - 06/26/2020 11:30 AM CDT Images from the original note were not included. [facility] Chief Complaint. Chief Complaint Patient presents with ??? Abdominal Pain Mid last week noticed below the navel, past 4-5 days above the navel and then radiates to the upperR side. Constant pain, worse at night. ??? Painful [place] Sexually active, noticed in the last 2 days that intercourse has been painfull in the cervix area. Pt is currently not taking BC and no protection used. LMP - believes May 28, 2020, normally irregular. HPI. Patient is a 19 y.o. female ABD PAIN 06/26/20 ~1.5 weeks. Intermittent. At periumbilical to RUQ. Rare pain below umbilical area. Constant, dull ache when decreased. Sharp pain when at its worst. 6/10 at worst, now=1/10. Pain w/lying on R side, sharp pain at times. Improves w/lying on back. Epigastric pain w/sitting up. Has had decreased appetite. +nausea. Does not notice w/food/intake. No f/c. Denies GERD Has moved out of mother's home & into father's house in [place]. PAINFUL INTERCOURSE Painful in past 2 days. NOT on OCP. LMP 05/28/20. H/o irregular menses. States that boyfriend has large penis. Painful w/certain positions. OCP reports irregular periods up to 3 months between cycles. Reports varying menstrual bleeding patterns from light continuous spotting to HMB. Denies dysmenorrhea or dyschezia. Has not previously utilized OCPs. Not sexually active. Prior historical evaluation for PCOS with RO[facility]. 06/26/20 Not currently using any control. LMP 05/28/20. Has been having unprotected intercourse. ANXIETY 11/09/19 worsening; reports daily episodes of anxiety and increased irritability related to school/work and mother's chronic illness. Has previously taken fluoxetine with improvement in symptoms. 02/17/20 started on fluoxetine 20mg 11/09/19. Has not taken in about 1 month. Just did not follow through. She was given 90 day script 11/09/19 & still has pills left. Does not know why she stopped. 'just did.' Poor sleep habits. Not going to bed until 2-3am. Plays on phone until she falls asleep. Works at [employer]; works in [employer]. PREDIABETES 02/17/20 Poor labs; discussed repeating. Last A1c=6.5%. wt last checked 287# but does not check at home. Stressed need to improve lifestyle/diet now. 06/26/20 A1c=6.0% today. Reviewed that remains prediabetic. Anxiety Presents for follow-up visit. Symptoms include irritability and nausea. Patient reports no chest pain, dizziness, nervous/anxious behavior, palpitations or shortness of breath. Symptoms occur most days. The severity of symptoms is moderate. The quality of sleep is good. Nighttime awakenings: occasional. Abdominal Pain This is a new problem. Episode onset: ~1.5 weeks. The onset quality is sudden. The problem occurs intermittently. The problem has been unchanged. The pain is located in the RUQ, RLQ and periumbilicalregion. The pain is at a severity of 4/10. The quality of the pain is aching and sharp. The abdominal pain radiates to the epigastric region, LUQ and RLQ. Associated symptoms include nausea and vomiting (occasional in past week, wakes her up). Pertinent negatives include no constipation, diarrhea, fever, hematuria or weight loss. The pain is aggravated by certain positions and deep breathing. Thepain is relieved by nothing. Treatments tried: decreased intake. The treatment provided no relief. Past Medical History: Diagnosis Date ??? Fatty liver disease, nonalcoholic 05/03/2016 ??? Seasonal allergies Past Surgical History: Procedure Laterality Date ??? TONSILECTOMY, ADENOIDECTOMY, BILATERAL MYRINGOTOMY AND TUBES ??? TONSILLECTOMY 11/03/2016 Tonsillectomy HOME MEDICATIONS : blood glucose diagnostic (CONTOUR NEXT TEST STRIPS) strip lancets (MICROLET LANCET) misc triamcinolone (KENALOG) 0.1 % ointment benzonatate (TESSALON) 100 mg capsule fluticasone propionate (FLONASE) 50 mcg/actuation nasal spray loratadine (CLARITIN) 10 mg tablet norethindrone-e.estradioL-iron (LOESTIN 24 FE) 1 mg-20 mcg (24)/75 mg (4) per tablet ondansetron (ZOFRAN) 4 mg tablet No Known Allergies Social History Tobacco Use ??? Smoking status: Never Smoker ??? Smokeless tobacco: Never Used Substance Use Topics ??? Alcohol use: Never Frequency: Never Family History Problem Relation Age of Onset ??? Diabetes Mother Diabetes mellitus; ??? Kidney failure Mother ??? Hypertension Father Hypertension; ??? Asthma Father Review of Systems: Review of Systems Constitutional: Positive for irritability. Negative for chills, fever and weight loss. HENT: Negative. Eyes: Negative. Negative for visual disturbance. Respiratory: Negative. Negative for cough, shortness of breath and wheezing. Cardiovascular: Negative. Negative for chest pain, palpitations and leg swelling. Gastrointestinal: Positive for abdominal pain, nausea and vomiting (occasional in past week, wakes her up). Negative for abdominal distention, constipation and diarrhea. Genitourinary: Positive for dyspareunia and menstrual problem (irregular menses. LMP 05/28/20). Negative for genital sores, hematuria, vaginal bleeding and vaginal discharge. Musculoskeletal: Negative. Skin: Negative. Neurological: Negative. Negative for dizziness, light-headedness and numbness. Psychiatric/Behavioral: Positive for sleep disturbance (poor sleep habits, working midnights). Negative for dysphoric mood. The patient is not nervous/anxious. BP 120/80 (BP Location: Left arm, Patient Position: Sitting) Pulse 78 Temp 37.1 ??C (98.7 ??F) (Temporal) Resp 18 Ht 167.6 cm (5' 6 ) Wt 131.6 kg (290 lb 3.2 oz) SpO2 98% BMI 46.84 kg/m?? Physical Exam: Physical Exam Vitals signs and nursing note reviewed. Constitutional: Appearance: Normal appearance. She is well-developed. She is morbidly obese. HENT: Head: Normocephalic. Right Ear: Hearing normal. Left Ear: Hearing normal. Nose: Nose normal. No congestion or rhinorrhea. Eyes: General: Lids are normal. Gaze aligned appropriately. Extraocular Movements: Extraocular movements intact. Right eye: Normal extraocular motion and no nystagmus. Left eye: Normal extraocular motion and no nystagmus. Conjunctiva/sclera: Conjunctivae normal. Pupils: Pupils are equal, round, and reactive to light. Neck: Musculoskeletal: Full passive range of motion without pain, normal range of motion and neck supple. Thyroid: No thyromegaly. Trachea: Trachea and phonation normal. No tracheal deviation. Cardiovascular: Rate and Rhythm: Normal rate and regular rhythm. No extrasystoles are present. Heart sounds: Normal heart sounds, S1 normal and S2 normal. No murmur. No friction rub. No gallop. Pulmonary: Effort: Pulmonary effort is normal. Breath sounds: Normal breath sounds and air entry. No decreased breath sounds, wheezing, rhonchi orrales. Abdominal: General: Abdomen is protuberant. Bowel sounds are normal. Palpations: Abdomen is soft. Tenderness: There is abdominal tenderness in the right upper quadrant, right lower quadrant and periumbilical area. There is guarding. There is no rebound. Positive signs include Castro's sign (very minimal) and McBurney's sign. Negative signs include Rovsing's sign and psoas sign. Hernia: No hernia is present. Musculoskeletal: Normal range of motion. Right lower leg: No edema. Left lower leg: No edema. Lymphadenopathy: Cervical: No cervical adenopathy. Upper Body: Right upper body: No supraclavicular adenopathy. Left upper body: No supraclavicular adenopathy. Skin: General: Skin is warm and dry. Neurological: Mental Status: She is alert and oriented to person, place, and time. Motor: Motor function is intact. Coordination: Coordination is intact. Gait: Gait is intact. Psychiatric: Attention and Perception: Attention and perception normal. Mood and Affect: Mood and affect normal. Mood is not anxious or depressed. Behavior: Behavior is cooperative. Comments: Normal affect & behavior Assessment & Plan: Diagnoses and all orders for this visit: Pain radiating to lower abdomen (Primary) Assessment & Plan: CT abd/pelvis w/contrast ordered as well as labs. Would like to do hold & call today. Would like to have completed at [facility] in [place]. Aware that RN will call for auth & call [facility] to set up testing. Starting new job [...] not heard from us regarding CT authorization. Orders: - POCT urinalysis dipstick - CT Abdomen Pelvis W Contrast; Future - hCG, blood, quantitative; Future - Comprehensive metabolic panel; Future - CBC with auto differential; Future Colicky RUQ abdominal pain Assessment & Plan: CT abd/pelvis w/contrast ordered as well as labs. Would like to do hold & call today. Would like to have completed at [facility] in [place]. Aware that RN will call for auth & call [facility] to set up testing. Starting new job tomorrow & has to be there at 9am. Aware that I am unable to influence times available for testing. Aware that labs 1st then CT. Will talk w/her re: labs once rec'd. Orders: - CT Abdomen Pelvis W Contrast; Future Prediabetes Assessment & Plan: Lab Results Component Value Date HGBA1C 6.0% 06/26/2020 HGBA1C 6.2 (H) 02/18/2020 HGBA1C 6.5 (H) 02/01/2019 Reviewed improving A1c w/Brandie. Encouraged improved diet & activity. Needs to lose weight. Orders: - POCT hemoglobin A1c - POCT microalbumin Secondary oligomenorrhea Assessment & Plan: Menses not 1 month late yet. H/o irregular menses (now not on OCP). Neg HCG urine in office. Will check labs at [facility] in [place]. Orders: - POCT hCG, urine Encounter for counseling regarding contraception Assessment & Plan: Refuses OCP. Stressed need for safe sex, reviewed risks of . Encounter for screening for lipoid disorders Assessment & Plan: 06/26/20 A1C=6.0% BL=031 HDL=44 AM=514 USE=432 TC/HDL=3.8 Copy of results as well as written explanation given to Brandie. Reviewed diet/activity recommendations. Orders: - POCT lipid panel Morbid obesity with BMI of 45.0-49.9, adult ([facility]) Assessment & Plan: Reviewed need to lose weight, reviewed health benefits. Reviewed recommendations for daily intake & activity 20-30 minutes/day. Discussed healthy diet and importance of regular physical activity. Reviewed that weight slowly increasing. Need to start watching intake & exercising. BMI Follow-up includes: exercise counseling and education provided. Body mass index is 46.84 kg/m??. Lydia Copeland NP Cosigned by Uriel Walker MD at 06/28/2020 12:41 PM CDT documented in this encounter Miscellaneous Notes * Assessment & Plan Note - Lydia Copeland NP - 06/26/2020 12:51 PM CDT Associated Problem(s): Colicky RUQ abdominal pain CT abd/pelvis w/contrast ordered as well as labs. Would like to do hold & call today. Would like to have completed at [facility] in [place]. Aware that RN will call for auth & call [facility] to set up testing. Starting new job tomorrow & has to be there at 9am. Aware that I am unable to influence times available for testing. Aware that labs 1st then CT. Will talk w/her re: labs once rec'd. * Assessment & Plan Note - Lydia Copeland NP - 06/26/2020 12:51 PM CDT Associated Problem(s): Encounter for counseling regarding contraception Refuses OCP. Stressed need for safe sex, reviewed risks of . * Assessment & Plan Note - Lydia Copeland NP - 06/26/2020 12:50 PM CDT Associated Problem(s): Encounter for screening for lipoid disorders 06/26/20 A1C=6.0% FC=622 HDL=44 ZY=669 WEQ=337 TC/HDL=3.8 Copy of results as well as written explanation given to Brandie. Reviewed diet/activity recommendations. * Assessment & Plan Note - Lydia Copeland NP - 06/26/2020 12:49 PM CDT Associated Problem(s): Morbid obesity with BMI of 50.0-59.9, adult (HCC) Reviewed need to lose weight, reviewed health benefits. Reviewed recommendations for daily intake & activity 20-30 minutes/day. Discussed healthy diet and importance of regular physical activity. Reviewed that weight slowly increasing. Need to start watching intake & exercising. * Assessment & Plan Note - Lydia Copeland NP - 06/26/2020 12:46 PM CDT Associated Problem(s): Pain radiating to lower abdomen CT abd/pelvis w/contrast ordered as well as labs. Would like to do hold & call today. Would like to have completed at [facility] in [place]. Aware that RN will call for auth & call [facility] to set up testing. Starting new job [...] not heard from us regarding CT authorization. * Assessment & Plan Note - Lydia Copeland NP - 06/26/2020 12:46 PM CDT Associated Problem(s): Prediabetes Lab Results Component Value Date HGBA1C 6.0% 06/26/2020 HGBA1C 6.2 (H) 02/18/2020 HGBA1C 6.5 (H) 02/01/2019 Reviewed improving A1c w/Brandie. Encouraged improved diet & activity. Needs to lose weight. * Assessment & Plan Note - Lydia Copeland NP - 06/26/2020 12:45 PM CDT Associated Problem(s): Secondary oligomenorrhea Menses not 1 month late yet. H/o irregular menses (now not on OCP). Neg HCG urine in office. Will check labs at [facility]. documented in this encounter Plan of Treatment Scheduled Orders Name Type Priority Associated Diagnoses Orde r Schedule hCG, blood, quantitative Lab Routine Pain radiating to lower abdomen Expected: 06/26/2020, Expires: 06/26/2021 Comprehensive metabolic panel Lab Routine Pain radiating to lower abdomen Expected: 06/26/2020, Expires: 06/26/2021 CBC with auto differential Lab Routine Pain radiating to lower abdomen Expected: 06/26/2020, Expires: 06/26/2021 documented as of this encounter Procedures Procedure Name Priority Date/Time Associated Diagnosis Comments POCT URINALYSIS DIPSTICK Routine 06/26/2020 12:25 PM CDT Pain radiating to lower abdomen POCT LIPID PANEL Routine 06/26/2020 12:0 4 PM CDT Encounter for screening for lipoid disorders POCT HCG, URINE Routine 06/26/2020 12:03 PM CDT Secondary oligomenorrhea POCT MICROALBUMIN Routine 06/26/2020 12: 02 PM CDT Prediabetes POCT HEMOGLOBIN A1C Routine 06/26/2020 1 2:01 PM CDT Prediabetes documented in this encounter Results * POCT urinalysis dipstick (06/26/2020 12:25 PM CDT) Color, Urine, POC Yellow Clarity, ur, POC Clear Clear Glucose, ur, POC Negative Negative mg/dL Bilirubin, ur, POC Small Negative, Small, Moderate, Large Ketones, ur, POC Negative Negative Specific [place], POC 1.025 1.005 - 1.030 Blood, ur, POC Negative Negative pH, ur, POC 5.5 5.0 - 8.0 Protein, ur, POC Negative Negative Urobilinogen, urine, POC 0.2 0.2 - 1.0 mg/dL Nitrite, ur, POC Negative Negative Leukocytes, ur, POC Negative Negative Lot Number [id number] Urine 06/26/2020 12:2 5 PM CDT Lydia Copeland NP POINT OF CARE TEST ORDERA BLES Final Result * (ABNORMAL) POCT lipid panel (06/26/2020 12:04 PM CDT) Cholesterol, POC 171 mg/dL Comment:IXV=107 HDL, POC 44 mg/dL Triglycerides, POC 110 mg/dL LDL Cholesterol POC 104 mg/dL Chol/HDL Ratio, POC 3.8 Non-HDL Cholesterol, POC 126 mg/dL Cholesterol Total, POC 171 mg/dL Capillary blood 06/26/2020 1 2:04 PM CDT Lydia Copeland NP POINT OF CARE TEST ORDERA BLES Final Result * POCT hCG, urine (06/26/2020 12:03 PM CDT) HCG, ur, POC Negative Lot Number [id number] Comment:Exp: 08/02/2020 QC Backgroud Clear Acceptable QC Control Line Acceptable Urine 06/26/2020 12:0 3 PM CDT Lydia Copeland NP POINT OF CARE TEST ORDERA BLES Final Result * POCT microalbumin (06/26/2020 12:02 PM CDT) Microalbumin, POC 30 mg/L Comment:CRE 300 mg/dL; A:C < 30 mg/g Urine 06/26/2020 12:0 2 PM CDT Lydia Copeland NP POINT OF CARE TEST ORDERA BLES Final Result * POCT hemoglobin A1c (06/26/2020 12:01 PM CDT) Hemoglobin A1C, POC 6.0% Capillary blood 06/26/2020 1 2:01 PM CDT us Lydia Rachel Copeland NP POINT OF CARE TEST ORDERA BLES Final Result * CT Abdomen Pelvis W Contrast (06/26/2020) Anatomical Region Laterality Modality Body N/A Computed Tomogra phy us Lydia Rachel oCpeland MEDICAL SPECIALIST IMG CT PROCEDURES Final R esult documented in this encounter Visit Diagnoses Diagnosis Pain radiating to lower abdomen- Primary Colicky RUQ abdominal pain Prediabetes Other abnormal glucose Secondary oligomenorrhea [place] or infrequent menstruation Encounter for counseling regarding contraception Encounter for screening for lipoid disorders Morbid obesity with BMI of 45.0-49.9, adult ([facility]CC) documented in this encounter Discontinued Medications Medication Sig Discontinue Reason Start Date End Da te norethindrone-e.estradioL -iron (LOESTIN 24 FE) 1 mg-20 mcg (24)/75 mg (4) per tabletIndications:Pregnan cy Contraception Take 1 tablet by mouth daily 02/17/2020 06/26/2020 benzonatate (TESSALON) 100 mg capsule TK 1 C PO TID 01/21/2020 06/26/2020 ondansetron (ZOFRAN) 4 mg tablet TK 1 T PO Q 6 H PRF NAUSEA OR VOM 01/20/2020 06/26/2020 loratadine (CLARITIN) 10 mg tablet TK 1 T PO D 01/20/2020 06/26/2020 fluticasone propionate (FLONASE) 50 mcg/actuation nasal spray USE 1 SPRAY INTO EACH NOSTRIL BID 01/21/2020 06/26/2020 documented as of this encounter Care Teams Learning Services Coordinator Relationship Specialty Start Date End Date Uriel Walker MD [address] [place] [address] PCP - General Family Medicine 02/23/19 documented as of this encounter
--- OUTSIDE RECORDS SUMMARY | 2024-11-10 05:59 | XMS_ITS | Encounter Summary ---
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 R/t menses. Discussed LLQ/pelvic pain could be d/t ovulation. Improved pain. Sedentary lifestyle. Encouraged to increase activity & watch diet. Discussed plain diet. No fried/fast/fatty foods. Reviewed red flags. * Telephone Encounter - Joleen Frye MA - 07/04/2020 12:02 PM CDT Pt called and LVM stating that she had an ultrasound done last Friday and would like to know the results. Please review. Thank you documented in this encounter Plan of Treatment Not on file documented as of this encounter Visit Diagnoses Not on filedocumented in this encounter Care Teams Church Supervisor Relationship Specialty Start Date End Date [place] [address] PCP - General Family Medicine 02/23/19 documented as of this encounter
--- OUTSIDE RECORDS SUMMARY | 2024-11-10 05:59 | XMS_ITS | Encounter Summary ---
Author Organization [facility] Address [address] [place] [address] Care Team Providers Care Research And Development Chemist Name Role Phone Uriel Walker MD Primary Care Provider [phone] [phone] Encounter Details Date Type Department Care Team (Late st Contact Info) Description 11/06/2020 Telephone Family Physicians [facility] [address] [place] [address] Ingrid Zaidi MA Social History Tobacco Use Types Packs/Day Years [...] on file Legal Sex Female 1:53 AM CARD CUTTER Gender Identity Female 11/22/2020 12:52 PM CARD CUTTER Sexual Orientation Straight 11/22/2020 12 :52 PM CARD CUTTER documented as of this encounter Miscellaneous Notes * Telephone Encounter - Vale Lay RN - 11/06/2020 2:13 PM CARD CUTTER Spoke to Lydia and the patient. Patient is going to schedule with the Opthomologist that [place] [facility] referred her to. CUTTER * Telephone Encounter - Ingrid Zaidi MA - 11/06/2020 1:55 PM CST Patient calling she said lvm saying that she went to the eye doctor the other day because she was having vision changes in left eye. The eye doctor told patient that her optic nerve is swollen and that she believes that there is something behind her eye that she is needing further testing for. She was told to call us right away and be seen. Please advise. Thanks. CUTTER documented in this encounter Plan of Treatment Not on file documented as of this encounter Visit Diagnoses Not on filedocumented in this encounter Care Teams Research And Development Chemist Relationship Specialty Start Date End Date Uriel Walker MD [address] [place] [address] PCP - General Family Medicine 02/23/19 documented as of this encounter
--- OUTSIDE RECORDS SUMMARY | 2024-11-10 05:59 | XMS_ITS | Encounter Summary ---
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 ART Gender Identity Female 11/22/2020 12:52 PM APPRAISER ART Sexual Orientation Straight 11/22/2020 12 :52 PM APPRAISER ART documented as of this encounter Plan of Treatment Not on file documented as of this encounter Procedures Procedure Name Priority Date/Time Associated Diagnosis Comments DIFFERENTIAL AUTO Routine 06/07/2021 4:4 4 PM CDT HIV 1/2 ANTIBODY PLUS P24 ANTIGEN Routine 06/07/2021 4:44 PM CDT CBC WITH AUTO DIFFERENTIAL Routine 06/07/2021 4:44 PM CDT ABO/RH Routine 06/07/2021 4:28 PM CDT ANTIBODY SCREEN Routine 06/07/2021 4:28 PM CDT GTT 50GM 1HR GESTATIONAL SCREEN Routine 06/07/2021 4:03 PM CDT RPR Routine 06/07/2021 4:03 PM CDT SCAN - RADIOLOGY/IMAGING 05/14/2021 documented in this encounter Results * Differential, auto (06/07/2021 4:44 PM CDT) Neutrophil abs 6.1 1.7 - 6.5 K/cumm [facility] ([place]) Imm gran abs 0.0 0.0 - 0.1 K/cumm [facility] ([place]) Lymphocyte abs 0.9 0.8 - 3.3 K/cumm [facility] ([place]) Monocyte abs 0.3 0.2 - 0.8 K/cumm [facility] ([place]) Eosinophil abs 0.0 0.0 - 0.5 K/cumm [facility] ([place]) Basophil abs 0.0 0.0 - 0.1 K/cumm [facility] ([place]) Neutrophil pct 83.0 % [facility] ([place]) Comment: Interpretive Data Percent cell count reference ranges are not reported, since discordance with absolute values may lead to misinterpretation of CBC data. Current Interpretive Data was last revised on 2018. Imm gran pct 0.4 % [facility] ([place]) Comment: Interpretive Data Percent cell count reference ranges are not reported, since discordance with absolute values may lead to misinterpretation of CBC data. Current Interpretive Data was last revised on 2018. Lymphocyte pct 12.2 % [facility] ([place]) Comment: Interpretive Data Percent cell count reference ranges are not reported, since discordance with absolute values may lead to misinterpretation of CBC data. Current Interpretive Data was last revised on 2018. Monocyte pct 4.1 % [facility] ([place]) Comment: Interpretive Data Percent cell count reference ranges are not reported, since discordance with absolute values may lead to misinterpretation of CBC data. Current Interpretive Data was last revised on 2018. Eosinophil pct 0.3 % [facility] ([place]) Comment: Interpretive Data Percent cell count reference ranges are not reported, since discordance with absolute values may lead to misinterpretation of CBC data. Current Interpretive Data was last revised on 2018. Basophil pct 0.0 % [facility] ([place]) Comment: Interpretive Data Percent cell count reference ranges are not reported, since discordance with absolute values may lead to misinterpretation of CBC data. Current Interpretive Data was last revised on 2018. Blood specimen (specimen) 06/07/2021 4:44 PM CDT 06/07/2021 5:12 PM CDT Rowan [facility] BLOOD ORDERABLES Jessenia l Result [facility] ([place]) [address] [facility] [place] [address] * HIV 1/2 Antibody plus p24 Antigen (06/07/2021 4:44 PM CDT) Pathologist [facility] HIV 1/2 ab + p24 ag Nonreactive Nonreactive [facility] ([place]) Comment: Nonreactive for HIV-1 antigen and HIV-1/HIV-2 antibodies. No laboratory evidence of HIV infection. If acute HIV infection is suspected, consider testing for HIV-1 RNA. Testing performed by: [facility], [address], [place]., [address] Blood specimen (specimen) 06/07/2021 4:44 PM CDT 06/08/2021 9:45 AM CDT [facility]an [facility] MICROBIOLOGY - GENERA L ORDERABLES Final Result [facility] ([place]) [address] [facility] [place] [address] * (ABNORMAL) CBC with auto differential (06/07/2021 4:44 PM CDT) WBC 7.4 3.8 - 9.9 K/cumm [facility] ([place]) Hgb 11.0(L) 11.9 - 15.5 g/dL [facility] ([place]) Hct 33.9(L) 35.6 - 45.5 % [facility] ([place]) Plt 277 150 - 400 K/cumm [facility] ([place]) MPV 9.4 9.1 - 12.3 fL [facility] ([place]) RBC 4.07 3.90 - 5.20 M/cumm [facility] ([place]) MCV 83.3 81.3 - 96.4 fL [facility] ([place]) MCH 27.0(L) 27.1 - 33.3 pg [facility] ([place]) MCHC 32.4 32.3 - 35.7 g/dL [facility] ([place]) RDW CV 13.2 11.1 - 14.9 % [facility] ([place]) RDW SD 40.0 35.7 - 48.1 fL [facility] ([place]) NRBC abs 0.00 0.00 - 0.01 K/cumm [facility] ([place]) Blood specimen (specimen) 06/07/2021 4:44 PM CDT 06/07/2021 5:12 PM CDT Rowan Teague [facility] LAB BLOOD ORDERABLES Jessenia l Result [facility] ([place]) [address] [facility] [place] [address] * Antibody screen (06/07/2021 4:28 PM CDT) Merrick, indirect, Gel Interpretation Negative [facility]SC [facility] ([place]) Blood specimen (specimen) 06/07/2021 4:28 PM CDT 06/09/2021 5:48 PM CDT Rowan [facility] BLOOD BANK TEST ORDER BEAU Final Result [facility] ([place]) [address] [place] [address] * ABO/Rh (06/07/2021 4:28 PM CDT) Pathologist [facility] ABO/Rh O Negative [facility] ([place]) Blood specimen (specimen) 06/07/2021 4:28 PM CDT 06/09/2021 5:48 PM CDT Rowan [facility] BLOOD BANK TEST ORDER BEAU Final Result Performing Organization Address [facility] Co de Phone Number [facility] ([place]) [address] [place] [address] * RPR (06/07/2021 4:03 PM CDT) Pathologist [facility] RPR Nonreactive Nonreactive [facility] ([place]) Comment:Testing performed by : [facility], [address] [place] [address], [address] Blood specimen (specimen) 06/07/2021 4:03 PM CDT 06/08/2021 9:33 AM CDT Rowan Teague [facility] MICROBIOLOGY - GENERA L ORDERABLES Final Result Performing Organization Address [facility] Co de Phone Number [facility] ([place]) [address] [facility] [place] [address] * (ABNORMAL) Glucose tolerance testing 50 gram gestational screen (06/07/2021 4:03 PM CDT) GTT 50g gest screen 227(H) <=140 mg/dL [facility] ([place]) Comment: Interpretive Data Used for suspected gestational diabetes. The screening test uses 50 grams of glucose with sample obtained 1 hr later. Normal range: < 140 mg/dL. A glucose value of >140 mg/dL generally indicates the need for a full diagnostic tolerance test. Reference Interval Info: Diabetes Care 2005, Vol 28. Supplement 1,S37-S42. Report of the Expert Committee on the Diagnosis and Classification of Diabetes Mellitus. Diabetes Care 2020; 43(Supplement 1):S14-31. Current interpretive data was last revised on 2020. Blood specimen (specimen) 06/07/2021 4:03 PM CDT 06/07/2021 5:11 PM CDT Narrative [facility] ([place]) - 06/07/2021 5:38 PM CDT fax results to [phone] Rowan Teague [facility] LAB BLOOD ORDERABLES Jesseina l Result [facility] ([place]) [address] [facility] Department [place] [address] * SCAN - RADIOLOGY/IMAGING (05/14/2021) Anatomical Region Laterality Modality Other us Provider Scanning Final Result documented in this encounter Visit Diagnoses Not on filedocumented in this encounter Care Teams Director Patient Accounting Relationship Specialty Start Date End [place] [address] PCP - General Family Medicine 02/23/19 documented as of this encounter
--- OUTSIDE RECORDS SUMMARY | 2024-11-10 05:59 | XMS_ITS | Encounter Summary ---
Author Organization [facility] Address [address] [place] [address] Care Team Providers Care Muff Winder Name Role Phone Uriel Walker MD Primary Care Provider [phone] [phone] Encounter Details Date Type Department Care Team (Late st Contact Info) Description 11/30/2019 Telephone Family Physicians [facility] [address] [place] [address] Uriel Walker MD [address] [place] [address] Social History Tobacco Use Types Packs/Day Years Used Date Smoking Tobacco: Never Smokeless Tobacco: Never Alcohol Use Standard Drinks/Week Comments Never 0 (1 standard drink = 0.6 oz pur e alcohol) AUDIT-C Answer Date Recorded Frequency of Alcohol Consumption Never 07/13/2019 Average Number of Drinks Not on file 019 Frequency of Binge Drinking Not on file 07/04 PHQ-2 Answer Date Recorded PHQ-2 Score 0 11/09/2019 Comments No Sex and Gender Information Value Date Recorded Sex Assigned at Not on file Legal Sex Female 1:53 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 [employer] * Telephone Encounter - Alisson Menezes MA - 12/06/2019 11:02 AM SUPERVISOR [employer]TO[employer]ORAT[employer] Pt called and notified of results. She is interested in physical therapy. She is going to check with her mom then call back about where she would like to go for PT. Charlene, Forwarding so you aware of referral. [employer] * Telephone Encounter - Korin Albarran MA - 11/30/2019 9:46 AM CST LMOM [facility] [employer] [facility] * Telephone Encounter - Korin Albarran MA - 11/30/2019 9:46 AM CST ----- Message from Kisha Murcia NP sent at 11/30/2019 7:57 AM SUPERVISOR [employer] ----- Please let Brandie know that her x-ray does not show a fracture. She likely sprained her wrist inthe accident. If she continues to experience pain, I recommend physical therapy. Thanks. [employer] documented in this encounter Plan of Treatment Not on file documented as of this encounter Visit Diagnoses Not on filedocumented in this encounter Care Teams Muff Winder Relationship Specialty Start Date End [place] [address] PCP - General Family Medicine 02/23/19 documented as of this encounter
--- OUTSIDE RECORDS SUMMARY | 2024-11-10 05:59 | XMS_ITS | Encounter Summary ---
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 Ref#[id number]. Patient informed. She asked if she could just get it done before 5because she was in [employer]. I told her I was not sure how late they did them so she should probably head up there. * Telephone Encounter - Lydia Copeland NP - 06/26/2020 12:31 PM CDT Vale, Can you call insurance for Hold & Call CT abd/pelvis w contrast to r/o appendicitis. She wants to have done at [facility] in [place]. Labs ordered also. Her cell: [phone]. She is starting new job tomorrow. Has to be there at 9am. Not sure she'll do it unless it can be done today. Thank you Lydia documented in this encounter Plan of Treatment Not on file documented as of this encounter Visit Diagnoses Not on filedocumented in this encounter Care Teams Director Of Special Events Relationship Specialty Start Date End Date [place] [address] PCP - General Family Medicine 02/23/19 documented as of this encounter
--- OUTSIDE RECORDS SUMMARY | 2024-11-10 05:59 | XMS_ITS | Encounter Summary ---
Author Organization [facility] Healthcare Address [address] [place] [id number] Care Team Providers Care Electronics Installer Name Role Phone Uriel Walker MD Primary Care Provider [phone] Reason for Visit * Reason Comments Altered Mental Status Encounter Details Date Type Department Care Team (Late st Contact Info) Description 08/06/2020 9:57 PM CDT - 08/06/2020 11:52 PM CDT Emergency [facility] 1 [place] [address] Gilson Persaud MD 1 [facility] 1 [place] [address] Viral syndrome (Primary Dx) Discharge Disposition: Discharge to home or self [...] on file Legal Sex 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 Gender Identity Female 11/22/2020 12:52 PM 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 Sexual Orientation Straight 11/22/2020 12 :52 PM 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 documented as of this encounter Last Filed Vital Signs Vital Sign Reading Time Taken Comments Blood Pressure 147/86 08/06/2020 10:07 PM CDT Pulse 91 08/06/2020 10:07 PM CDT Temperature 36.4 ??C (97.6 ??F) 08/06/2020 10:07 PM C DT Respiratory Rate 25 08/06/2020 10:07 PM CDT Oxygen Saturation 100% 08/06/2020 10:07 PM CDT Inhaled Oxygen Concentration - - Weight - - Height - - Body Mass Index - - documented in this encounter Discharge Diagnoses Diagnosis Viral infection, unspecified - VIRAL INFECTION, UNSPECIFIED Fatty (change of) liver, not elsewhere classified - FATTY (CHANGE OF) LIVER, NOT ELSEWHERE CLASSIFIED Family history of ischemic heart disease and other diseases of the circulatory system - FAMILY HISTORY OF ISCHEMIC HEART DISEASE AND OTHER DISEASES OF THE CIRCULATORY SYSTEM documented in this encounter Discharge Instructions * Attachments The following attachments cannot be sent through Care Everywhere. * Viral Syndrome (Adult) ([place]) documented in this encounter Medications at Time of Discharge blood glucose diagnostic (CONTOUR NEXT TEST STRIPS) strip Use to test blood sugar twice daily or as directed. 08/25/2018 3 lancets (MICROLET LANCET) misc 5-9 each 08/25/2018 3 triamcinolone (KENALOG) 0.1 % ointment APPLY TOPICALLY TWICE DAILY TO DORSAL HAND FOR UP TO 14 DAYS 10/06/2019 3 documented as of this encounter Discharge Disposition Disposition Code Departure Means Destination Discharge to home or self care documented in this encounter ED Notes * Delores Mcdonald RN - 08/06/2020 10:04 PM CDT Pt presents to the ed with altered mental status. Pt boyfriend stated that pt has not seemed herself today. Pt is alert and oriented x3 and is following simple commands. She was able to ambulate fromthe wheelchair to bed with assistance. Pt seems drowsy and slow to respond. Pt stated that she was having some chest pain and sore throat that started about a hour ago. Blood sugar was 145 upon arrival. * Gilson Persaud MD - 08/06/2020 10:01 PM CDT Chief Complaint Patient presents with ??? Altered Mental Status HPI 10:01 PM Brandie Torres is a 19 y.o. female nonsmoker with a h/o nonalcoholic hepatic steatosis and anxiety who presents to the ED with AMS today, per patient's boyfriend. He states that patient has been out of it, has been sleeping a lot, and has not been talking. Patient reports HARDEN, CP, and right- sided abdominal pain for 1-2 days, as well as sore throat that is exacerbated by speaking. Shedenies any falls, injuries, or other known triggering factors for her symptoms. No other complaintsat this time. Patient History: Past Medical History: Diagnosis Date ??? Fatty liver disease, nonalcoholic 05/03/2016 ??? Seasonal allergies Past Surgical History: Procedure Laterality Date ??? TONSILECTOMY, ADENOIDECTOMY, BILATERAL MYRINGOTOMY AND TUBES ??? TONSILLECTOMY 11/03/2016 Tonsillectomy Family History Problem Relation Age of Onset ??? Diabetes Mother Diabetes mellitus; ??? Kidney failure Mother ??? Hypertension Father Hypertension; ??? Asthma Father Social History Tobacco Use ??? Smoking status: Never Smoker ??? Smokeless tobacco: Never Used Substance Use Topics ??? Alcohol use: Never Frequency: Never ??? Drug use: Never Review of Systems Constitutional: Negative for chills and fever. HENT: Positive for sore throat. Negative for ear pain. Eyes: Negative for pain and visual disturbance. Respiratory: Negative for cough and shortness of breath. Cardiovascular: Positive for chest pain. Negative for palpitations. Gastrointestinal: Positive for abdominal pain. Negative for vomiting. Genitourinary: Negative for dysuria and hematuria. Musculoskeletal: Negative for arthralgias and back pain. Skin: Negative for color change and rash. Neurological: Positive for headaches. Negative for seizures and syncope. Psychiatric/Behavioral: Positive for altered mental status. All other systems reviewed and are negative. ED Triage Vitals [08/06/207] Temp Pulse Resp BP SpO2 36.4 ??C (97.6 ??F) 91 25 147/86 100 % Temp src Heart Rate Source Patient Position BP Location FiO2 (%) -- -- -- -- -- Physical Exam Vitals signs and nursing note reviewed. Constitutional: Appearance: Normal appearance. HENT: Head: Normocephalic and atraumatic. Nose: Nose normal. Mouth/Throat: Mouth: Mucous membranes are moist. Eyes: Extraocular Movements: Extraocular movements intact. Pupils: Pupils are equal, round, and reactive to light. Neck: Musculoskeletal: Normal range of motion. Cardiovascular: Rate and Rhythm: Normal rate and regular rhythm. Pulses: Normal pulses. Heart sounds: Normal heart sounds. Pulmonary: Effort: Pulmonary effort is normal. Breath sounds: Normal breath sounds. Abdominal: General: Abdomen is flat. Palpations: Abdomen is soft. Tenderness: There is no abdominal tenderness. Musculoskeletal: Normal range of motion. Skin: General: Skin is warm. Capillary Refill: Capillary refill takes less than 2 seconds. Neurological: General: No focal deficit present. Mental Status: She is alert and oriented to person, place, and time. Procedures Labs Reviewed URINALYSIS AND REFLEX TO MICROSCOPIC AND CULTURE - Abnormal Result Value Color, ur Yellow Clarity, ur Clear Specific gravity, ur >1.030 (*) pH, urine 6.5 Protein, ur ql 1+ (*) Glucose, ur ql 1+ (*) Ketones, ur Trace Bilirubin, ur Negative Blood, ur Negative Urobilinogen, ur <2.0 Nitrite, ur Negative Leukocyte esterase, ur Negative UA reflex comment Reflex to microscopic UA will be performed. Narrative: Urine pH is affected by diet, medications, systemic acid-base disturbances, and renal tubular function. pH may affect urinary stone formation. For example, urine pH below 6.0 may help reduce the tendency for calcium phosphate stones and pH greater than 6.0 may reduce the tendency for uric acid stone formation. Source: [facility] [employer].Last revised 2017 CBC WITH AUTO DIFFERENTIAL - Abnormal WBC 6.3 Hgb 13.4 Hct 42.2 Plt 379 MPV 8.4 (*) RBC 5.15 MCV 81.9 MCH 26.0 (*) MCHC 31.8 (*) RDW CV 13.2 RDW SD 39.3 NRBC abs 0.00 URINALYSIS, MICROSCOPIC ONLY - Abnormal WBC, ur 0-5 RBC, ur 0-2 Epithelial cells, squamous, ur 11-20 (*) Mucous, ur Present (*) Culture Reflex Comment Value: Reflex conditions for urine culture (WBC >10) not met. POCT GLUCOSE DEVICE - Abnormal Glucose, POC 145 (*) COMPREHENSIVE METABOLIC PANEL Sodium 136 Potassium, pl 4.2 Chloride 102 CO2 26 Anion gap 9 BUN 19 Creatinine 0.72 Glucose 197 Calcium 9.4 Bilirubin, total 0.2 Protein, pl 6.9 Albumin 4.0 Alk phos 91 ALT 20 AST 15 TROPONIN T Troponin T <0.01 DRUGS OF ABUSE SCREEN, URINE WITHOUT CONFIRMATION Amphetamine, ur Not Detected Barbiturates, ur Not Detected Benzodiazepines, ur Not Detected Cannabinoids, ur Not Detected Cocaine, ur Not Detected Fentanyl, Ur Not Detected Methadone, ur Not Detected Opiates, ur Not Detected Oxycodone, ur Not Detected Phencyclidine, ur Not Detected Urine Creatinine 287 Narrative: Drug of Abuse screening is performed by immunoassay for medical purposes only. This is not to be used for Pain Management purposes. HCG, URINE, QUALITATIVE HCG, ur Negative DIFFERENTIAL AUTO Neutrophil abs 3.8 Imm gran abs 0.0 Lymphocyte abs 2.1 Monocyte abs 0.4 Eosinophil abs 0.1 Basophil abs 0.0 Neutrophil pct 60.5 Imm gran pct 0.2 Lymphocyte pct 32.5 Monocyte pct 5.5 Eosinophil pct 1.0 Basophil pct 0.3 EGFR GFR 122 No orders to display BP 147/86 Pulse 91 Temp 36.4 ??C (97.6 ??F) Resp 25 SpO2 100% MDM ED Course as of Aug 07 52 Time: 08/07 51 Comment: EKG NSR HR 80 , normal axis, no acute stt changes. By: Gilson Persaud MD Viral syndrome This note is prepared by Lynsey Berry, acting as a scribe for Gilson Persaud MD. I electronicallysigned this note at 12:52 AM on 08/07/2020. I, Gilson Persaud MD, have personally performed the services described in the documentation, reviewed the documentation, as recorded by the scribe in my presence, and it accurately and completely records my words and actions. Gilson Persaud MD 08/06/20 6538 Gilson Persaud MD 08/07/20 0523 documented in this encounter Plan of Treatment Not on file documented as of this encounter Procedures Procedure Name Priority Date/Time Associated Diagnosis Comments URINALYSIS AND REFLEX TO MICROSCOPIC AND CULTURE STAT 08/06/2020 11:16 PM CDT DRUGS OF ABUSE SCREEN, URINE WITHOUT CONFIRMATION STAT 08/06/2020 11:16 PM CDT HCG, URINE, QUALITATIVE STAT 08/06/2020 11:16 PM CDT URINALYSIS, MICROSCOPIC ONLY STAT 08/06/2020 11:16 PM CDT EGFR STAT 08/06/2020 10:21 PM CDT DIFFERENTIAL AUTO STAT 08/06/2020 10: 21 PM CDT CBC WITH AUTO DIFFERENTIAL STAT 08/06/2020 10:21 PM CDT TROPONIN T STAT 08/06/2020 10:21 PM CDT COMPREHENSIVE METABOLIC PANEL STAT 08/06/2020 10:21 PM CDT ECG 12-LEAD STAT 08/06/2020 10:04 PM CDT POCT GLUCOSE DEVICE Routine 08/06/2020 9 :56 PM CDT documented in this encounter Results * (ABNORMAL) Urinalysis, microscopic only (08/06/2020 11:16 PM CDT) WBC, ur 0-5 0 - 5 /HPF [facility] ([place]) RBC, ur 0-2 0 - 2 /HPF [facility] ([place]) Epithelial cells, squamous, ur 11-20(A) 0 - 5 /HPF [facility] ([place]) Mucous, ur Present(A) [facility] ([place]) Culture Reflex Comment Reflex conditions for urine culture (WBC >10) not met. [facility] ([place]) Urine, clean voided 08/06/2020 11:16 PM CDT 08/06/2020 11:17 PM CDT Gilson Persaud MD LAB URINE ORDERABLES Final Res ult [facility] ([place]) 1 [facility] [place] [address] * hCG, urine, qualitative (08/06/2020 11:16 PM CDT) HCG, ur Negative Negative [facility] ([place]) Urine 08/06/2020 11:1 6 PM CDT 08/06/2020 11:17 PM CDT Gilson Persaud MD LAB URINE ORDERABLES Final Res ult Performing Organization Address City/[facility] Co de Phone Number [facility] ([place]) 1 [facility] [place] [address] * Drugs of Abuse Screen, Urine without Confirmation (08/06/2020 11:16 PM CDT) Amphetamine, ur Not Detected CutOff 500ng/mL [facility] ([place]) Comment: Interpretive Data - Amphetamines: ??Samples containing greater than 500 ng/mL d-methamphetamine ??or other cross-reacting amphetamine compounds are reported as positive. ??Amphetamine immunoassays are subject to significant false positive rates due to cross-reactivity of non-amphetamine drugs. Current Interpretive Data was last reviewed 2018. Barbiturates, ur Not Detected CutOff 200ng/mL [facility] ([place]) Comment: Interpretive Data - Barbiturates: ??Samples containing greater than 200 ng/mL secobarbital or other cross-reacting barbiturate compounds are reported as positive. ??False positive and false negative results are possible. Current Interpretive Data was last reviewed 2018. Benzodiazepines, ur Not Detected CutOff 100ng/mL [facility] ([place]) Comment: Interpretive Data - Benzodiazepines: ??Samples containing greater than 100 ng/mL nordiazepam or other cross-reacting compounds are reported as positive. ?? False positive and false negative results are possible. ?? Current Interpretive Data was last reviewed 2018. Cannabinoids, ur Not Detected CutOff 50 ng/mL [facility] ([place]) Comment: Interpretive Data - Cannabinoids: ??Samples containing greater than 50 ng/mL delta-9 THC -COOH or other cross-reacting compounds are reported as positive. ??False positive and false negative results are possible. ?? Current Interpretive Data was last reviewed 2018. Cocaine, ur Not Detected CutOff 150ng/mL [facility] ([place]) Comment: Interpretive Data - Cocaine: ??Samples containing greater than 150 ng/mL benzoylecgonine or other cross-reacting compounds are reported as positive. False positive and false negative results are possible. Current Interpretive Data was last reviewed 2018. Fentanyl, Ur Not Detected Cutoff 1 ng/mL [facility] ([place]) Comment: Interpretive Data - Fentanyls: ??Samples containing greater than 1 ng/mL fentanyl or other cross-reacting fentanyl compounds are reported as detected. ??False positive and false negative results are possible. Current Interpretive Data was last reviewed 2019. Methadone, ur Not Detected CutOff 300ng/mL [facility] ([place]) Comment: Interpretive Data - Methadone: ??Samples containing greater than 300 ng/mL d,l-methadone or other cross-reacting compounds are reported as positive. ??False positive and false negative results are possible. Current Interpretive Data was last reviewed 2018. Opiates, ur Not Detected CutOff 300ng/mL [facility] ([place]) Comment: Interpretive Data - Opiates: ??Samples containing greater than 300 ng/mL morphine or other cross-reacting compounds are reported as positive. ??False positive and false negative results are possible. Current Interpretive Data was last reviewed 2018. Oxycodone, ur Not Detected CutOff 100ng/mL [facility] ([place]) Comment: Interpretive Data - Oxycodone: ??Samples containing greater than 100 ng/mL oxycodone or other cross-reacting compounds are reported as positive. ??False positive and false negative results are possible. ?? Current Interpretive Data was last reviewed 2018. Phencyclidine, ur Not Detected CutOff 25 ng/mL [facility] ([place]) Comment: Interpretive Data - Phencyclidine: ??Samples containing greater than 25 ng/mL phencyclidine or other cross-reacting compounds are reported as positive. ??False positive and false negative results are possible. ?? Current Interpretive Data was last reviewed 2018. Urine Creatinine 287 mg/dL [facility] ([place]) Comment: Interpretive Data Urine Creatinine: < 10 mg/dL is extremely dilute = or > 10 but < 20 mg/dL is dilute = or > 20 mg/dL is normal Current Interpretive Data was last revised on 2018. Urine 08/06/2020 11:1 6 PM CDT 08/06/2020 11:17 PM CDT Narrative [facility] ([place]) - 08/06/2020 11:34 PM CDT Drug of Abuse screening is performed by immunoassay for medical purposes only. ??This is not to be used for Pain Management purposes. us Gilson Persaud MD LAB URINE ORDERABLES Final Res ult [facility] ([place] 1 [facility] Department of Laboratories [place], [place] [id number] * (ABNORMAL) Urinalysis reflex to microscopic and culture Urine, clean voided (08/06/2020 11:16 PM CDT) Color, ur Yellow Yellow [facility] ([place]) Clarity, ur Clear Clear [facility] ([place]) Specific gravity, ur >1.030(H) 1.010 - 1.025 [facility] ([place]) pH, urine 6.5 [facility] ([place]) Protein, ur ql 1+(A) Negative [facility] ([place]) Glucose, ur ql 1+(A) Negative [facility] ([place]) Ketones, ur Trace Negative [facility] ([place]) Bilirubin, ur Negative Negative [facility] ([place]) Blood, ur Negative Negative [facility] ([place]) Urobilinogen, ur <2.0 <2.0 mg/dL [facility] ([place]) Nitrite, ur Negative Negative [facility] ([place]) Leukocyte esterase, ur Negative Negative [facility] ([place]) UA reflex comment Reflex to microscopic UA will be performed. [facility] ([place]) Urine, clean voided 08/06/2020 11:16 PM CDT 08/06/2020 11:17 PM CDT Narrative [facility] ([place]) - 08/06/2020 11:26 PM CDT ?? Urine pH is affected by diet, medications, systemic acid-base disturbances, and renal tubular function. ??pH may affect urinary stone formation. ??For example, urine pH below 6.0 may help reduce the tendency for calcium phosphate stones and pH greater than 6.0 may reduce the tendency for uric acid stone formation. Source: [place] [employer]. Last revised 2017 us Gilson Persaud MD LAB MICROBIOLOGY - GENERAL ORD ERABLES Final Result [facility] ([place]) 1 [facility] Department [place] [address] * eGFR (08/06/2020 10:21 PM CDT) eGFR 122 mL/min/1.7 3 m2 [facility] ([place]) Comment: Interpretive Data Reference Interval Normal ?>/= 90 mL/min/1.73m2 Mildly decreased* ? 60 - 89 mL/min/1.73m2 Mildly to moderately decreased ?45 - 59 mL/min/1.73m2 Moderately to severely decreased ??30 - 44 mL/min/1.73m2 Severely decreased ?15 - 29 mL/min/1.73m2 Kidney Failure ?< 15 ??mL/min/1.73m2 *Relative to young adult level If -[place] multiply value by 1.16. Estimated glomerular filtration rate is determined by the CKD-EPI equation recommended by the National Kidney Foundation (KDIGO 2012 Clinical Practice Guideline for the Evaluation and Management of Chronic Kidney Disease. Kidney Intnl Suppl Nov 2012;3:1). The CKD-EPI equation should not be used for patients with unstable renal function and has not been validated in children and those over 70. Current interpretive data was last reviewed 2016. Blood specimen (specimen) 08/06/2020 10:21 PM CDT 08/06/2020 10:28 PM CDT us Gilson Persaud MD LAB BLOOD ORDERABLES Final Res ult [facility] ([place]) 1 [facility] Department [place] [address] * Differential, auto (08/06/2020 10:21 PM CDT) Neutrophil abs 3.8 1.7 - 6.5 K/cumm [facility] ([place]) Imm gran abs 0.0 0.0 - 0.1 K/cumm [facility] ([place]) Lymphocyte abs 2.1 0.8 - 3.3 K/cumm [facility] ([place]) Monocyte abs 0.4 0.2 - 0.8 K/cumm [facility] ([place]) Eosinophil abs 0.1 0.0 - 0.5 K/cumm [facility] ([place]) Basophil abs 0.0 0.0 - 0.1 K/cumm [facility] ([place]) Neutrophil pct 60.5 % [facility] ([place]) Comment: Interpretive Data Percent cell count reference ranges are not reported, since discordance with absolute values may lead to misinterpretation of CBC data. Current Interpretive Data was last revised on 2018. Imm gran pct 0.2 % [facility] ([place]) Comment: Interpretive Data Percent cell count reference ranges are not reported, since discordance with absolute values may lead to misinterpretation of CBC data. Current Interpretive Data was last revised on 2018. Lymphocyte pct 32.5 % [facility] ([place]) Comment: Interpretive Data Percent cell count reference ranges are not reported, since discordance with absolute values may lead to misinterpretation of CBC data. Current Interpretive Data was last revised on 2018. Monocyte pct 5.5 % [facility] ([place]) Comment: Interpretive Data Percent cell count reference ranges are not reported, since discordance with absolute values may lead to misinterpretation of CBC data. Current Interpretive Data was last revised on 2018. Eosinophil pct 1.0 % [facility] ([place]) Comment: Interpretive Data Percent cell count reference ranges are not reported, since discordance with absolute values may lead to misinterpretation of CBC data. Current Interpretive Data was last revised on 2018. Basophil pct 0.3 % [facility] ([place]) Comment: Interpretive Data Percent cell count reference ranges are not reported, since discordance with absolute values may lead to misinterpretation of CBC data. Current Interpretive Data was last revised on 2018. Blood specimen (specimen) 08/06/2020 10:21 PM CDT 08/06/2020 10:28 PM CDT Gilson Persaud MD LAB BLOOD ORDERABLES Final Res ult [facility] ([place]) 1 [facility] Department [place] [address] * Troponin T (08/06/2020 10:21 PM CDT) Troponin T <0.01 0.00 - 0.01 ng/mL [facility] ([place]) Comment: Interpretive Data Reference ranges for children <18 years of age have not been established. - > or = 18 years: Serial determinations are recommended for the diagnosis of myocardial infarction. ??Temporal rise and fall are consistent with myocardial infarction when at least one value is above the 99th percentile upper reference limit for troponin assay. ??Journal of the [place] [employer] 2012;60:1581-98. Current Interpretive Data Last Revised Date: 2018. Blood specimen (specimen) 08/06/2020 10:21 PM CDT 08/06/2020 10:28 PM CDT Gilson Persaud MD LAB BLOOD ORDERABLES Final Res ult [facility] ([place]) 1 [facility] Department [place] [address] * Comprehensive metabolic panel (08/06/2020 10:21 PM CDT) Sodium 136 135 - 145 mmol/L [facility] ([place]) Potassium, pl 4.2 3.3 - 4.9 mmol/L [facility] ([place]) Chloride 102 97 - 110 mmol/L [facility] ([place]) CO2 26 22 - 32 mmol/L [facility] ([place]) Anion gap 9 2 - 15 mmol/L [facility] ([place]) BUN 19 8 - 25 mg/dL [facility] ([place]) Creatinine 0.72 0.40 - 1.00 mg/dL [facility] ([place]) Glucose 197 70 - 199 mg/dL [facility] ([place]) [...] classification and Diagnosis of Diabetes Diabetes Care 2017;40 (Suppl. 1):S11. Current interpretive data was last revised 2017. Calcium 9.4 8.5 - 10.3 mg/dL [facility] ([place]) Bilirubin, total 0.2 0.1 - 1.2 mg/dL [facility] ([place]) Protein, pl 6.9 6.5 - 8.5 g/dL [facility] ([place]) Albumin 4.0 3.5 - 5.0 g/dL [facility] ([place]) Alk phos 91 70 - 260 Units/L [facility] ([place]) ALT 20 7 - 45 Units/L [facility] ([place]) AST 15 10 - 45 Units/L [facility] ([place]) Comment:Slightly Hemolyzed S pecimen Blood specimen (specimen) 08/06/2020 10:21 PM CDT 08/06/2020 10:28 PM CDT Gilson Persaud MD LAB BLOOD ORDERABLES Final Res ult [facility] ([place]) 1 [facility] Department [place] [address] * (ABNORMAL) CBC with auto differential (08/06/2020 10:21 PM CDT) WBC 6.3 3.8 - 9.9 K/cumm [facility] ([place]) Hgb 13.4 11.9 - 15.5 g/dL [facility] ([place]) Hct 42.2 35.6 - 45.5 % [facility] ([place]) Plt 379 150 - 400 K/cumm [facility] ([place]) MPV 8.4(L) 9.1 - 12.3 fL [facility] ([place]) RBC 5.15 3.90 - 5.20 M/cumm [facility] ([place]) MCV 81.9 81.3 - 96.4 fL [facility] ([place]) MCH 26.0(L) 27.1 - 33.3 pg [facility] ([place]) MCHC 31.8(L) 32.3 - 35.7 g/dL [facility] ([place]) RDW CV 13.2 11.1 - 14.9 % [facility] ([place]) RDW SD 39.3 35.7 - 48.1 fL [facility] ([place]) NRBC abs 0.00 0.00 - 0.01 K/cumm [facility] ([place]) Blood specimen (specimen) 08/06/2020 10:21 PM CDT 08/06/2020 10:28 PM CDT Gilson Persaud MD LAB BLOOD ORDERABLES Final Res ult [facility] ([place]) 1 [facility] Department [place] [address] * ECG 12 lead (08/06/2020 10:04 PM CDT) 08/06/2020 10:0 4 PM CDT Narrative [facility] - 08/07/2020 11:44 AM CDT Vent Rate: 80 bpm RR Interval: 747 msec PA Interval: 148 msec QRS Duration: 106 msec QT Interval: 360 msec QTC Interval: 396 msec P-R-T [place]: 21 - 20 - 49 degrees SINUS RHYTHM MINIMAL VOLTAGE CRITERIA FOR LVH, CONSIDER NORMAL VARIANT ??[MEETS CRITERIA IN ONE OF: R(aVL), S(V1), R(V5), R(V5/V6)+S(V1)] BORDERLINE ECG No previous tracing is available for comparison Electronically Signed By: Dr Fredy Boyer us Gilson Persaud MD ECG ORDERABLES Final Result Performing Organization Address City/[facility]/ZIP Co de Phone Number [facility] [email or web address] [facility] * (ABNORMAL) POCT glucose (08/06/2020 9:56 PM CDT) Glucose, POC 145(H) 71 - 98 mg/dL [facility] ([place]) Blood specimen (specimen) 08/06/2020 9:56 PM CDT 08/06/2020 9:56 PM CDT us Notinfile Unknown LAB POCT ORDERABLES - DEVICE F inal Result Performing Organization Address City/[facility]/ZIP Co de Phone Number [facility] ([place]) 1 [facility] Department [place] [address] documented in this encounter Visit Diagnoses Diagnosis Viral syndrome- Primary Unspecified viral infection, in conditions classified elsewhere and of unspecified site documented in this encounter Care Teams Electronics Installer Relationship Specialty Start Date End [place] [id number] PCP - General Family Medicine 02/23/19 documented as of this encounter
--- OUTSIDE RECORDS SUMMARY | 2024-11-10 05:59 | XMS_ITS | Encounter Summary ---
Author Organization [facility] Medical [facility] Address [address] [place] [address] Care Team Providers Care Assistant Manager Bilingual Name Role Phone Uriel Walker MD Primary Care Provider [phone] Encounter Details Date Type Department Care Team (Late st Contact Info) Description 11/15/2020 Orders Only [facility] [address] [place] [address] Scanning, Provider Social History Tobacco Use Types [...] on file Legal Sex Female 1:53 AM DEEP FAT FRY COOK Gender Identity Female 11/22/2020 12:52 PM DEEP FAT FRY COOK Sexual Orientation Straight 11/22/2020 12 :52 PM DEEP FAT FRY COOK documented as of this encounter Plan of Treatment Not on file documented as of this encounter Procedures Procedure Name Priority Date/Time Associated Diagnosis Comments SCAN - RADIOLOGY/IMAGING 11/15/2020 documented in this encounter Results * SCAN - RADIOLOGY/IMAGING (11/15/2020) Anatomical Region Laterality Modality Other us Provider Scanning Final Result documented in this encounter Visit Diagnoses Not on filedocumented in this encounter Care Teams Assistant Manager Bilingual Relationship Specialty Start Date End Date Uriel Walker MD [address] [place] [address] PCP - General Family Medicine 02/23/19 documented as of this encounter
--- OUTSIDE RECORDS SUMMARY | 2024-11-10 05:59 | XMS_ITS | Encounter Summary ---
Author Organization [facility] Address [address] [place] [address] Care Team Providers Care Motorcycle Repair Shop Supervisor Name Role Phone Uriel Walker MD Primary Care Provider [phone] Encounter Details Date Type Department Care Team (Late st Contact Info) Description 06/30/2020 Orders Only [facility] [address] [place] [address] [place] [address] [facility] [address] [place] [address] Increased endometrial stripe thickness; Fluid in endometrial cavity Social History Tobacco Use Types Packs/Day Years [...] on file Legal Sex Female 1:53 AM ANNEALING FURNACE OPERATOR Gender Identity Female 11/22/2020 12:52 PM ANNEALING FURNACE OPERATOR Sexual Orientation Straight 11/22/2020 12 :52 PM ANNEALING FURNACE OPERATOR documented as of this encounter Miscellaneous Notes * Result Encounter Note - Lydia Copeland NP - 07/04/2020 1:22 PM CDT [phone] from 06/26/20 (saw endometrial thickening & recommended pelvic us.) 06/30/20 reviewed pelvic US showing increased endometrial stripe thickness. R/t menses. Discussed LLQ/pelvic pain could be d/t ovulation. Improved pain. Sedentary lifestyle. Encouraged to increase activity & watch diet. Discussed plain diet. No fried/fast/fatty foods. Reviewed red flags. documented in this encounter Plan of Treatment Not on file documented as of this encounter Procedures Procedure Name Priority Date/Time Associated Diagnosis Comments US TRANSVAGINAL Schedule Routine, Read Routine (OP Routine) 06/30/2020 Increased endometrial stripe thickness Fluid in endometrial cavity documented in this encounter Results * US Transvaginal (06/30/2020) Anatomical Region Laterality Modality Pelvis N/A Ultrasound us Lydia Copeland JAVA GRAILS DEVELOPER IMG US PROCEDURES Edited Result - Final documented in this encounter Visit Diagnoses Diagnosis Increased endometrial stripe thickness Nonspecific (abnormal) findings on radiological and other examination of genitourinary organs Fluid in endometrial cavity documented in this encounter Care Teams Motorcycle Repair Shop Supervisor Relationship Specialty Start Date End Date Uriel Walker MD [address] [place] [address] PCP - General Family Medicine 02/23/19 documented as of this encounter
--- OUTSIDE RECORDS SUMMARY | 2024-11-10 05:59 | XMS_ITS | Encounter Summary ---
Author Organization [facility] Medical [facility] Address [address] [place] [address] Care Team Providers Care Ice Skating Teacher Name Role Phone Uriel Walker MD Primary Care Provider [phone] Encounter Details Date Type Department Care Team (Late st Contact Info) Description 08/03/2021 Orders Only [facility] [address] [place] [address] Scanning, Provider Social History Tobacco Use Types [...] on file Legal Sex Female 1:53 AM WIRE TWISTING MACHINE OPERATOR Gender Identity Female 11/22/2020 12:52 PM WIRE TWISTING MACHINE OPERATOR Sexual Orientation Straight 11/22/2020 12 :52 PM WIRE TWISTING MACHINE OPERATOR documented as of this encounter Plan of Treatment Not on file documented as of this encounter Procedures Procedure Name Priority Date/Time Associated Diagnosis Comments SCAN - LABS 08/03/2021 documented in this encounter Results * SCAN - LABS (08/03/2021) us Provider Scanning Final Result documented in this encounter Visit Diagnoses Not on filedocumented in this encounter Care Teams Ice Skating Teacher Relationship Specialty Start Date End Date Uriel Walker MD [address] [place] [address] PCP - General Family Medicine 02/23/19 documented as of this encounter
--- OUTSIDE RECORDS SUMMARY | 2024-11-10 05:59 | XMS_ITS | Encounter Summary ---
Author Organization [facility] Address [address] [place] [address] Care Team Providers Care Roof Bolter Operator Name Role Phone Uriel Walker MD Primary Care Provider [phone] Encounter Details Date Type Department Care Team (Late st Contact Info) Description 02/18/2020 7:55 AM CDT Lab [address] [address] Lydia Copeland, PIE FILLING MIXER [address] [address] Elevated hemoglobin A1c; Encounter for screening for lipoid disorders Discharge Disposition: Discharge to home or self [...] on file Legal Sex Female 1:53 AM GRISTMILLER Gender Identity Female 11/22/2020 12:52 PM GRISTMILLER Sexual Orientation Straight 11/22/2020 12 :52 PM GRISTMILLER COVID-19 Exposure Response Date Recorded In the last month, have you been in contact with someone who was confirmed or suspected to have Coronavirus / COVID-19? No / Unsure 01/25/2020 10:54 AM CDT documented as of this encounter Discharge Disposition Disposition Code Departure Means Destination Discharge to home or self care documented in this encounter Miscellaneous Notes * Result Encounter Note - Lydia Copeland NP - 02/21/2020 4:46 PM CDT Dear Brandie Torres, Please check your [employer] account; in the letters section. Your recent test results have been sent to your [employer] account. If any questions, please call. Thank you, Lydia Copeland, MULTIMEDIA INSTRUCTIONAL DESIGNER-c documented in this encounter Plan of Treatment Not on file documented as of this encounter Procedures Procedure Name Priority Date/Time Associated Diagnosis Comments EGFR Routine 02/18/2020 7:56 AM CDT Elevated hemoglobin A1c DIFFERENTIAL AUTO Routine 02/18/2020 7:5 6 AM CDT Elevated hemoglobin A1c CBC WITH AUTO DIFFERENTIAL Routine 02/18/2020 7:56 AM CDT Elevated hemoglobin A1c HEMOGLOBIN A1C Routine 02/18/2020 7:56 AM CDT Elevated hemoglobin A1c LIPID PANEL Routine 02/18/2020 7:56 AM CDT Elevated hemoglobin A1c Encounter for screening for lipoid disorders COMPREHENSIVE METABOLIC PANEL Routine 02/18/2020 7:56 AM CDT Elevated hemoglobin A1c ALBUMIN CREATININE RATIO, URINE Routine 02/18/2020 7:51 AM CDT Elevated hemoglobin A1c documented in this encounter Results * eGFR (02/18/2020 7:56 AM CDT) [facility] eGFR 132 mL/min/1.7 3 m2 [facility] ([place]) Comment: Interpretive Data Reference Interval Normal ?>/= 90 mL/min/1.73m2 Mildly decreased* ? 60 - 89 mL/min/1.73m2 Mildly to moderately decreased ?45 - 59 mL/min/1.73m2 Moderately to severely decreased ??30 - 44 mL/min/1.73m2 Severely decreased ?15 - 29 mL/min/1.73m2 Kidney Failure ?< 15 ??mL/min/1.73m2 *Relative to young adult level If -Armenian multiply value by 1.16. Estimated glomerular filtration [...] was last reviewed 2016. Blood specimen (specimen) 02/18/2020 7:56 AM CDT 02/18/2020 8:52 AM CDT us Lydia Copeland PIE FILLING MIXER LAB BLOOD ORDERABLES Jessenia eldridge Result [facility] ([place]) [address] [facility] Department [place] [address] * Differential, auto (02/18/2020 7:56 AM CDT) Neutrophil abs 3.6 1.7 - 6.5 K/cumm [facility] ([place]) Imm gran abs 0.0 0.0 - 0.1 K/cumm [facility] ([place]) Lymphocyte abs 1.9 0.8 - 3.3 K/cumm [facility] ([place]) Monocyte abs 0.5 0.2 - 0.8 K/cumm [facility] ([place]) Eosinophil abs 0.0 0.0 - 0.5 K/cumm [facility] ([place]) Basophil abs 0.0 0.0 - 0.1 K/cumm [facility] ([place]) Neutrophil pct 59.6 % [facility] ([place]) Comment: Interpretive Data Percent cell count reference ranges are not reported, since discordance with absolute values may lead to misinterpretation of CBC data. Current Interpretive Data was last revised on 2018. Imm gran pct 0.3 % [facility] ([place]) Comment: Interpretive Data Percent cell count reference ranges are not reported, since discordance with absolute values may lead to misinterpretation of CBC data. Current Interpretive Data was last revised on 2018. Lymphocyte pct 31.7 % [facility] ([place]) Comment: Interpretive Data Percent cell count reference ranges are not reported, since discordance with absolute values may lead to misinterpretation of CBC data. Current Interpretive Data was last revised on 2018. Monocyte pct 7.4 % [facility] ([place]) Comment: Interpretive Data Percent cell count reference ranges are not reported, since discordance with absolute values may lead to misinterpretation of CBC data. Current Interpretive Data was last revised on 2018. Eosinophil pct 0.7 % [facility] ([place]) Comment: Interpretive Data Percent cell count reference ranges are not reported, since discordance with absolute values may lead to misinterpretation of CBC data. Current Interpretive Data was last revised on 2018. Basophil pct 0.3 % [facility] ([place]) Comment: Interpretive Data Percent cell count reference ranges are not reported, since discordance with absolute values may lead to misinterpretation of CBC data. Current Interpretive Data was last revised on 2018. Blood specimen (specimen) 02/18/2020 7:56 AM CDT 02/18/2020 8:52 AM CDT us Lydia Copeland PIE FILLING MIXER LAB BLOOD ORDERABLES Jessenia l Result [facility] ([place]) 1 [facility] Department [place] [address] * (ABNORMAL) Hemoglobin A1c (02/18/2020 7:56 AM CDT) Hgb A1C 6.2(H) 4.0 - 5.6 % [facility]) Estimated Average Glucose 131 mg/dL [facility] ([place]) Comment: The ADA recommends reporting an estimated Average Glucose (eAG) with all Hemoglobin A1c results using the equation derived from a study of 507 normal and diabetic adults. ??Minority populations were underrepresented and children were not included. ?? (Diabetes Care 31:7410-6473, 2008). ??The eAG is not equivalent to a fasting glucose. Blood specimen (specimen) 02/18/2020 7:56 AM CDT 02/18/2020 8:52 AM CDT us Lydia Copeland NP LAB BLOOD ORDERABLES Jessenia eldridge Result [facility]) [address] [facility] Department [place] [address] * (ABNORMAL) Lipid panel (02/18/2020 7:56 AM CDT) Cholesterol 186 <=199 mg/dL [facility] ([place]) Comment: Interpretive Data [...] Interpretive Data was last revised on 2018. Triglycerides 144(H) <=129 mg/dL [facility]) Comment: Interpretive Data Ages < or = [...] Interpretive Data was last revised on 2018. HDL 40(L) >=45 mg/dL [facility] ([place]) Comment: Interpretive Data [...] Interpretive Data was last revised on 2018. LDL, calculated 117 <=129 mg/dL [facility] ([place]) Comment: Interpretive [...] Interpretive Data was last revised on 2018. Non-HDL Cholesterol 146(H) <=144 mg/dL [facility] ([place]) Comment: Interpretive Data [...] Interpretive Data was last revised on 2018. Chol/HDL ratio 5 [facility] ([place]) Blood specimen (specimen) 02/18/2020 7:56 AM CDT 02/18/2020 8:52 AM CDT us Lydia Copeland NP LAB BLOOD ORDERABLES Jessenia l Result [facility] ([place]) 1 [facility] Department [place] [address] * (ABNORMAL) CBC with auto differential (02/18/2020 7:56 AM CDT) WBC 6.1 3.8 - 9.9 K/cumm [facility] ([place]) Hgb 12.9 11.9 - 15.5 g/dL [facility] ([place]) Hct 41.9 35.6 - 45.5 % [facility] ([place]) Plt 306 150 - 400 K/cumm [facility] ([place]) MPV 8.6(L) 9.1 - 12.3 fL [facility] ([place]) RBC 5.14 3.90 - 5.20 M/cumm [facility] ([place]) MCV 81.5 81.3 - 96.4 fL [facility] ([place]) MCH 25.1(L) 27.1 - 33.3 pg [facility] ([place]) MCHC 30.8(L) 32.3 - 35.7 g/dL [facility] ([place]) RDW CV 13.6 11.1 - 14.9 % [facility] ([place]) RDW SD 40.0 35.7 - 48.1 fL [facility] ([place]) NRBC abs 0.00 0.00 - 0.01 K/cumm [facility] ([place]) Blood specimen (specimen) 02/18/2020 7:56 AM CDT 02/18/2020 8:52 AM CDT us Lydia Copeland PIE FILLING MIXER LAB BLOOD ORDERABLES Jessenia eldridge Result [facility] ([place]) [address] [facility] Department [place] [address] * Comprehensive metabolic panel (02/18/2020 7:56 AM CDT) Sodium 143 135 - 145 mmol/L [facility] ([place]) Potassium, pl 4.1 3.3 - 4.9 mmol/L [facility] ([place]) Chloride 103 97 - 110 mmol/L [facility] ([place]) CO2 29 22 - 32 mmol/L [facility] ([place]) Anion gap 11 2 - 15 mmol/L [facility] ([place]) BUN 15 8 - 25 mg/dL [facility] ([place]) Creatinine 0.61 0.40 - 1.00 mg/dL [facility] ([place]) Glucose 120 70 - 199 mg/dL [facility] ([place]) Comment: Interpretive Data Fasting glucose [...] interpretive data was last revised 2017. Calcium 9.9 8.5 - 10.3 mg/dL [facility] ([place]) Bilirubin, total 0.8 0.1 - 1.2 mg/dL [facility] ([place]) Protein, pl 7.0 6.5 - 8.5 g/dL [facility] ([place]) Albumin 4.2 3.5 - 5.0 g/dL [facility] ([place]) Alk phos 89 70 - 260 Units/L [facility] ([place]) ALT 20 7 - 45 Units/L [facility] ([place]) AST 16 10 - 45 Units/L [facility] ([place]) Blood specimen (specimen) 02/18/2020 7:56 AM CDT 02/18/2020 8:52 AM CDT Lydia Copeland PIE FILLING MIXER LAB BLOOD ORDERABLES Jessenia l Result [facility] ([place]) [address] [facility] Department [place] [address] * Albumin Creatinine Ratio, Urine (02/18/2020 7:51 AM CDT) Albumin Ur 32.6 mg/L [facility] ([place]) Comment: Interpretive Data No reference range established. Current interpretive data was last revised 2019. Testing performed by: [address] [address] Creatinine Ur 224.3 mg/dL [facility] ([place]) Comment: Interpretive Data No reference range established. Current interpretive data was last revised 2019. Testing performed by: [address] [address] Albumin Creatinine Ratio, Ur 15 1 - 29 mg/g [facility] ([place]) Comment:Testing performed by : [address] [address] Urine 02/18/2020 7:51 AM CDT 02/18/2020 1:30 PM CDT us Lydia Copeland PIE FILLING MIXER LAB URINE ORDERABLES Jessenia l Result [facility] ([place]) [address] [facility] Department [place] [address] documented in this encounter Visit Diagnoses Diagnosis Elevated hemoglobin A1c Other abnormal blood chemistry Encounter for screening for lipoid disorders documented in this encounter Care Teams Roof Bolter Operator Relationship Specialty Start Date End Date [place] [address] PCP - General Family Medicine 02/23/19 documented as of this encounter
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
--- OUTSIDE RECORDS SUMMARY | 2024-11-10 05:59 | XMS_ITS | Encounter Summary ---
Author Organization [facility] Healthcare Address [address] [place] [address] Care Team Providers Care Corporate Compliance Director Name Role Phone Uriel Walker MD Primary Care Provider [phone] Reason for Visit * Reason Comments COVID-19 EVALUATION Encounter Details Date Type Department Care Team (Late st Contact Info) Description 09/28/2020 5:01 AM COMBINATION PRESSER - 09/28/2020 9:[address] [facility] Emergency [facility] Emergency Department [address] [place] [address] Kalli More MD [address] [place] [address] Debby London MD [address] [place] [address] Tachycardia (Primary Dx); Non-intractable vomiting, presence of nausea not specified, unspecified vomiting type; Hyperglycemia; Suspected COVID-19 virus infection Discharge Disposition: Discharge to home or self [...] on file Legal Sex Female 1:53 AM COMBINATION PRESSER Gender Identity Female 11/22/2020 12:52 PM COMBINATION PRESSER Sexual Orientation Straight 11/22/2020 12 :52 PM COMBINATION PRESSER documented as of this encounter Last Filed Vital Signs Vital Sign Reading Time Taken Comments Blood Pressure 131/73 09/28/2020 8:30 AM COMBINATION PRESSER Pulse 95 09/28/2020 8:30 AM COMBINATION PRESSER Temperature 36.7 ??C (98.1 ??F) 09/28/2020 5:20 AM CS T Respiratory Rate 18 09/27/2020 10:17 PM COMBINATION PRESSER Oxygen Saturation 100% 09/28/2020 8:30 AM COMBINATION PRESSER Inhaled Oxygen Concentration - - Weight 127 kg (280 lb) 09/27/2020 10:17 PM COMBINATION PRESSER Height 165.1 cm (5' 5 ) 09/27/2020 10:17 PM COMBINATION PRESSER Body Mass Index 46.59 09/27/2020 10:17 PM COMBINATION PRESSER Body Mass Index Percentile 99.82% 09/27/2020 10: 17 PM COMBINATION PRESSER Growth Chart: [facility] (Girls, 2- 20 Years) documented in this encounter Discharge Diagnoses Diagnosis Tachycardia, unspecified - TACHYCARDIA, UNSPECIFIED Nausea with vomiting, unspecified - NAUSEA WITH VOMITING, UNSPECIFIED Hyperglycemia, unspecified - HYPERGLYCEMIA, UNSPECIFIED Fatty (change of) liver, not elsewhere classified - FATTY (CHANGE OF) LIVER, NOT ELSEWHERE CLASSIFIED documented in this encounter Discharge Instructions * Attachments The following attachments cannot be sent through Care Everywhere. * Coronavirus Disease 2019: Caring for Yourself and Others ([place]) * Nondiabetic Hyperglycemia (AfterCare(R) Instructions(ER/ED)) ([place]) documented in this encounter Medications at Time [...] documented in this encounter ED Notes * Kalli More MD - 09/28/2020 5:15 AM CST HPI Chief Complaint Patient presents with ??? COVID-19 EVALUATION History provided by: Patient Vomiting Duration: 3 days Timing: Intermittent Number of daily episodes: 1 Emesis appearance: yellow. Chronicity: New Recent urination: Normal Associated symptoms: chills, cough, fever, headaches, nausea and sore throat Associated symptoms: no abdominal pain and no myalgias Cough: Duration: 1 day Chronicity: New Fever: Duration: 3 days Timing: Intermittent Headaches: Duration: 3 days Timing: Intermittent Sore throat: Duration: 3 days Timing: Intermittent Risk factors: no diabetes and no sick contacts 09/28/2020 5:15 AM Brandie Torres is a 19 y.o. female nonsmoker with a h/o prediabetes, NICE, and anxiety who presents to the ED with vomiting for 3 days. Patient reports 1 episode of yellow emesis daily, and denieshematemesis. She also reports nausea, fever, chills, headache, lightheadedness, and sore throat for3 days, as well as cough for 1 day. She denies SOB and loss of taste or smell. She denies known exposure to COVID-19 or other sick contact. She states that she recently attended a family gathering with 13 people. She states that she lives with her mother and her boyfriend. She denies any known h/o HTN. No other complaints at this time. Per chart review: Patient presented to ED on 08/06/20 for c/o altered mental status, per patient's boyfriend. Urine drug screen negative. CBC, CMP, troponin, and UA unremarkable. Patient was discharged. Scribe did not enter room and physician wore appropriate PPE. Past Medical History: Diagnosis Date ??? Fatty [...] ??? Drug use: Never Review of Systems Review of Systems Constitutional: Positive for chills and fever. HENT: Positive for sore throat. Negative for congestion and ear pain. Negative for loss of taste or smell. Eyes: Negative for pain and discharge. Respiratory: Positive for cough. Negative for shortness of breath. Cardiovascular: Negative for chest pain and palpitations. Gastrointestinal: Positive for nausea and vomiting. Negative for abdominal pain. Genitourinary: Negative for dysuria and frequency. Musculoskeletal: Negative for back pain and myalgias. Skin: Negative for rash and wound. Neurological: Positive for dizziness and headaches. Physical Exam ED Triage Vitals [09/27/20 2217] Temp Pulse Resp BP SpO2 36.6 ??C (97.8 ??F) 119 18 (!) 154/112 96 % Temp src Heart Rate Source Patient Position BP Location FiO2 (%) Temporal -- -- -- -- Physical Exam Vitals signs and nursing note reviewed. Constitutional: Appearance: She is obese. HENT: Head: Normocephalic and atraumatic. Right Ear: External ear normal. Left Ear: External ear normal. Nose: Nose normal. Mouth/Throat: Mouth: Mucous membranes are moist. Pharynx: Oropharynx is clear. Eyes: Extraocular Movements: Extraocular movements intact. Pupils: Pupils are equal, round, and reactive to light. Neck: Musculoskeletal: Normal range of motion and neck supple. Cardiovascular: Rate and Rhythm: Regular rhythm. Tachycardia present. Pulses: Normal pulses. Heart sounds: Normal heart sounds. Pulmonary: Effort: Pulmonary effort is normal. No respiratory distress. Breath sounds: Normal breath sounds. Abdominal: Palpations: Abdomen is soft. Tenderness: There is no abdominal tenderness. Skin: General: Skin is warm and dry. Capillary Refill: Capillary refill takes less than 2 seconds. Neurological: General: No focal deficit present. Mental Status: She is alert and oriented to person, place, and time. Procedures Labs Reviewed COMPREHENSIVE METABOLIC PANEL - Abnormal Result Value Sodium 136 Potassium, pl 3.6 Chloride 103 CO2 22 Anion gap 11 BUN 7 (*) Creatinine 0.59 Glucose 237 (*) Calcium 8.8 Bilirubin, total 0.5 Protein, pl 7.0 Albumin 3.7 Alk phos 91 ALT 37 AST 41 CBC WITH AUTO DIFFERENTIAL - Abnormal WBC 3.9 Hgb 13.8 Hct 42.5 Plt 220 MPV 8.7 (*) RBC 5.29 (*) MCV 80.3 (*) MCH 26.1 (*) MCHC 32.5 RDW CV 13.2 RDW SD 38.1 NRBC abs 0.00 POCT HCG, URINE - Normal HCG, ur, POC Negative Lot Number [id number] QC Backgroud Clear Acceptable QC Control Line Acceptable COVID-19 CORONAVIRUS RNA EGFR GFR 134 DIFFERENTIAL AUTO Neutrophil abs 2.6 Imm gran abs 0.0 Lymphocyte abs 1.0 Monocyte abs 0.3 Eosinophil abs 0.0 Basophil abs 0.0 Neutrophil pct 66.2 Imm gran pct 0.5 Lymphocyte pct 24.5 Monocyte pct 8.5 Eosinophil pct 0.0 Basophil pct 0.3 XR Chest 1 Vw Final Result No radiographic evidence of acute cardiopulmonary process. THIS IS AN ELECTRONICALLY VERIFIED FINAL REPORT 09/27/2020 11:07 PM - Electronically signed by Fredy Rooney M.D. RT: RT Report ID: [id number] Reading Location: [id number] BP 140/92 Pulse 110 Temp 36.7 ??C (98.1 ??F) Resp 18 Ht 165.1 cm (5' 5 ) Wt 127 kg (280 lb) LMP 09/03/2020 SpO2 100% BMI 46.59 kg/m?? MDM Pt is requesting COVID testing as she has an immunocompromised family member. Also will give IVF asthe patient is tachycardic. Pt states she has had prediabetes but takes no medicine for this, also has no history of HTN. ED Course as of Sep 28 636 Time: 09/28 635 Comment: Dr. Pham will assume care of the patient at this time pending IVF and reevaluation. By: Kalli More MD Tachycardia Non-intractable vomiting, presence of nausea not specified, unspecified vomiting type Hyperglycemia Disposition: pending reevaluation This note is prepared by Lynsey Berry, acting as a scribe for Kalli More MD. I electronically signed this note at 6:36 AM on 09/28/2020. I, Kalli More MD, have personally performed the services described in the documentation, reviewed the documentation, as recorded by the scribe in my presence, and it accurately and completely records my words and actions. Kalli More MD 09/28/20 0636 INATION PRESSER * Sharlene Hernandez RN - 09/27/2020 10:14 PM CST Pt presents with complaints of a fever, cough, sore throat, chills, headache, and dizziness. Pt states that symptoms started on Friday. Pt denies any known sick contacts. Pt has not contacted PCP, saying that she just decided to come here . INATION PRESSER documented in this encounter Plan of Treatment Not on file documented as of this encounter Procedures Procedure Name Priority Date/Time Associated Diagnosis Comments COVID-19 CORONAVIRUS RNA Routine 09/28/2020 5:37 AM COMBINATION PRESSER DIFFERENTIAL AUTO STAT 09/27/2020 11: 09 PM COMBINATION PRESSER CBC WITH AUTO DIFFERENTIAL STAT 09/27/2020 11:09 PM COMBINATION PRESSER XR CHEST 1 VIEW ED 09/27/2020 10:58 PM COMBINATION PRESSER POCT HCG, URINE Routine 09/27/2020 10:38 PM COMBINATION PRESSER EGFR STAT 09/27/2020 10:27 PM COMBINATION PRESSER COMPREHENSIVE METABOLIC PANEL STAT 09/27/2020 10:27 PM COMBINATION PRESSER documented in this encounter Results * COVID-19 Coronavirus RNA Nasopharyngeal (09/28/2020 5:37 AM COMBINATION PRESSER) COVID-19 RNA Not Detected [facility] ([place]) Comment: Interpretive Data Testing performed at [facility] Infectious Disease [facility]. The 2019-Novel Coronavirus Assay (COVID-19) Real Time RT-PCR assay is for in vitro diagnostic use under FDA emergency use authorization only. A negative RT-PCR result does not preclude infection with COVID-19 and should not be used as the sole basis for treatment or other patient management decisions. Additional sample types have been validated according to CLIA regulations. ?? Current Interpretive Data was last revised on 2020. Testing performed by: [facility], [address] [place] [address], [id number] First COVID-19 test? Yes [facility] ([place]) Comment:Testing performed by : [facility], [address] [place] [address], [id number] Employeed in healthcare? No [facility] ([place]) Comment:Testing performed by : [address], [address] status? No CE [facility] ([place]) Comment:Testing performed by : [facility], [address] [place] [address], [id number] Group care resident? No [facility] ([place]) Comment:Testing performed by : [facility], 1 [facility], [address] Hospitalized? No [facility] ([place]) Comment:Testing performed by : [address], [address] Is patient in ICU? No [facility] ([place]) Comment:Testing performed by : [facility], [address] [place] [address], [id number] Symptomatic as defined by CDC? Yes [facility] ([place]) Comment:Testing performed by : [address], [address] Nasopharyngeal 09/28/2020 5: 37 AM COMBINATION PRESSER 09/28/2020 10:32 AM COMBINATION PRESSER Narrative [facility] ([place]) - 09/28/2020 8:56 PM COMBINATION PRESSER What is the reason for testing?->Likely to be discharged Date of symptom onset->09/28/20 us Kalli More MD LAB MICROBIOLOGY - GENERAL ORDER BEAU Final Result [facility] ([place]) 1 [facility] Department [place] [address] * Differential, auto (09/27/2020 11:09 PM COMBINATION PRESSER) Neutrophil abs 2.6 1.7 - 6.5 K/cumm [facility] ([place]) Imm gran abs 0.0 0.0 - 0.1 K/cumm [facility] ([place]) Lymphocyte abs 1.0 0.8 - 3.3 K/cumm [facility] ([place]) Monocyte abs 0.3 0.2 - 0.8 K/cumm [facility] ([place]) Eosinophil abs 0.0 0.0 - 0.5 K/cumm [facility] ([place]) Basophil abs 0.0 0.0 - 0.1 K/cumm [facility] ([place]) Neutrophil pct 66.2 % [facility] ([place]) Comment: Interpretive Data Percent cell count reference ranges are not reported, since discordance with absolute values may lead to misinterpretation of CBC data. Current Interpretive Data was last revised on 2018. Imm gran pct 0.5 % [facility] ([place]) Comment: Interpretive Data Percent cell count reference ranges are not reported, since discordance with absolute values may lead to misinterpretation of CBC data. Current Interpretive Data was last revised on 2018. Lymphocyte pct 24.5 % [facility] ([place]) Comment: Interpretive Data Percent cell count reference ranges are not reported, since discordance with absolute values may lead to misinterpretation of CBC data. Current Interpretive Data was last revised on 2018. Monocyte pct 8.5 % [facility] ([place]) Comment: Interpretive Data Percent cell count reference ranges are not reported, since discordance with absolute values may lead to misinterpretation of CBC data. Current Interpretive Data was last revised on 2018. Eosinophil pct 0.0 % [facility] ([place]) Comment: Interpretive [...] last revised on 2018. Blood specimen (specimen) 09/27/2020 11:09 PM COMBINATION PRESSER 09/27/2020 11:25 PM COMBINATION PRESSER us Kalli More MD LAB BLOOD ORDERABLES Final Resul t [facility] ([place]) 1 [facility] Department [place] [address] * (ABNORMAL) CBC with auto differential (09/27/2020 11:09 PM COMBINATION PRESSER) WBC 3.9 3.8 - 9.9 K/cumm [facility] ([place]) Hgb 13.8 11.9 - 15.5 g/dL [facility] ([place]) Hct 42.5 35.6 - 45.5 % [facility] ([place]) Plt 220 150 - 400 K/cumm [facility] ([place]) MPV 8.7(L) 9.1 - 12.3 fL [facility] ([place]) RBC 5.29(H) 3.90 - 5.20 M/cumm [facility] ([place]) MCV 80.3(L) 81.3 - 96.4 fL [facility] ([place]) MCH 26.1(L) 27.1 - 33.3 pg [facility] ([place]) MCHC 32.5 32.3 - 35.7 g/dL [facility] ([place]) RDW CV 13.2 11.1 - 14.9 % [facility] ([place]) RDW SD 38.1 35.7 - 48.1 fL [facility] ([place]) NRBC abs 0.00 0.00 - 0.01 K/cumm [facility] ([place]) Blood specimen (specimen) 09/27/2020 11:09 PM COMBINATION PRESSER 09/27/2020 11:25 PM COMBINATION PRESSER us Kalli More MD LAB BLOOD ORDERABLES Final Resul t [facility] ([place]) 1 [facility] Department [place] [address] * XR Chest 1 Vw (09/27/2020 10:58 PM COMBINATION PRESSER) Anatomical Region Laterality Modality Body, Chest N/A Computed Radiogr aphy 09/27/2020 10:4 9 PM COMBINATION PRESSER Impressions 09/27/2020 11:10 PM COMBINATION PRESSER ?? No radiographic evidence of acute cardiopulmonary process. THIS IS AN ELECTRONICALLY VERIFIED FINAL REPORT 09/27/2020 11:07 PM - Electronically signed by Fredy Rooney M.D. RT: RT D: ??09/27/2020 11:07 PM T: ??09/27/2020 11:07 PM Report ID: [id number] Reading Location: ??[id number] Narrative 09/27/2020 11:10 PM COMBINATION PRESSER [facility] ?Imaging Result Name: BRANDIE TORRES ? Ordering Phys: PERI RODRIGUEZ Age: 19 ?Date of : 2000 ? Accession Number: [id number] Date of Service: 09/27/2020 ??Gender: F EXAM DESCRIPTION: ?? XR CHEST 1 VIEW REASON FOR STUDY: ?? Complaints of a fever, cough, sore throat, chills, headache, and dizziness. ?? Pt states that symptoms started on Friday. Non-smoker.Duration: Since Friday- ??09/25/2020 TECHNIQUE: ?? Upright PA view of the chest is performed. COMPARISON: ?? 11/24/2019. ?? Lungs are clear. ??No focal consolidation. ??No pleural effusion or pneumothorax. Cardiomediastinal silhouette is normal. Procedure Note Fredy Rooney MD - 09/27/2020 [facility] Imaging Result Name: BRANDIE TORRES Ordering Phys: PERI RODRIGUEZ Age: 19 Date of : 2000 Accession Number: [id number] Date of Service: 09/27/2020 Gender: F EXAM DESCRIPTION: XR CHEST 1 VIEW REASON FOR STUDY: Complaints of a fever, cough, sore throat, chills, headache, and dizziness. Pt states that symptoms started on Friday. Non-smoker.Duration: Since Friday- 09/25/2020 TECHNIQUE: Upright PA view of the chest is performed. COMPARISON: 11/24/2019. Lungs are clear. No focal consolidation. No pleural effusion or pneumothorax. Cardiomediastinal silhouette is normal. IMPRESSION: No radiographic evidence of acute cardiopulmonary process. THIS IS AN ELECTRONICALLY VERIFIED FINAL REPORT 09/27/2020 11:07 PM - Electronically signed by Fredy Rooney M.D. RT: RT Report ID: [id number] Reading Location: [id number] Kalli More MD IMG XR PROCEDURES Final Result * POCT hCG, urine (09/27/2020 10:38 PM COMBINATION PRESSER) HCG, ur, POC Negative Lot Number [id number] QC Backgroud Clear Acceptable QC Control Line Acceptable Urine 09/27/2020 10:3 8 PM COMBINATION PRESSER Kalli More MD POINT OF CARE TEST ORDERABLES Fi nal Result * eGFR (09/27/2020 10:27 PM COMBINATION PRESSER) eGFR 134 mL/min/1.7 3 m2 [facility] ([place]) Comment: Interpretive Data Reference Interval Normal ?>/= 90 mL/min/1.73m2 Mildly decreased* ? 60 - 89 mL/min/1.73m2 Mildly to moderately decreased ?45 - 59 mL/min/1.73m2 Moderately to severely decreased ??30 - 44 mL/min/1.73m2 Severely decreased ?15 - 29 mL/min/1.73m2 Kidney Failure ?< 15 ??mL/min/1.73m2 *Relative to young adult level If -[place] multiply value by 1.16. Estimated glomerular filtration [...] was last reviewed 2016. Blood specimen (specimen) 09/27/2020 10:27 PM COMBINATION PRESSER 09/27/2020 10:33 PM COMBINATION PRESSER us Kalli More MD LAB BLOOD ORDERABLES Final Resul t [facility] [place] 1 [facility] Department [place] [address] * (ABNORMAL) Comprehensive metabolic panel (09/27/2020 10:27 PM COMBINATION PRESSER) Sodium 136 135 - 145 mmol/L [facility] ([place]) Potassium, pl 3.6 3.3 - 4.9 mmol/L [facility] ([place]) Chloride 103 97 - 110 mmol/L [facility] ([place]) CO2 22 22 - 32 mmol/L [facility] ([place]) Anion gap 11 2 - 15 mmol/L [facility] ([place]) BUN 7(L) 8 - 25 mg/dL [facility] ([place]) Creatinine 0.59 0.40 - 1.00 mg/dL [facility] ([place]) Glucose 237(H) 70 - 199 mg/dL [facility] ([place]) Comment: Interpretive Data Fasting glucose [...] interpretive data was last revised 2017. Calcium 8.8 8.5 - 10.3 mg/dL [facility] ([place]) Bilirubin, total 0.5 0.1 - 1.2 mg/dL [facility] ([place]) Protein, pl 7.0 6.5 - 8.5 g/dL [facility] ([place]) Albumin 3.7 3.5 - 5.0 g/dL [facility] ([place]) Alk phos 91 70 - 260 Units/L [facility] ([place]) ALT 37 7 - 45 Units/L [facility] ([place]) AST 41 10 - 45 Units/L [facility] ([place]) Comment:Slightly Hemolyzed S pecimen Blood specimen (specimen) 09/27/2020 10:27 PM COMBINATION PRESSER 09/27/2020 10:33 PM COMBINATION PRESSER us Kalli More MD LAB BLOOD ORDERABLES Final Resul t [facility] ([place]) 1 [facility] Department [place] [address] documented in this encounter Visit Diagnoses Diagnosis Tachycardia- Primary Unspecified tachycardia Non-intractable vomiting, presence of nausea not specified, unspecified vomiting type Hyperglycemia Other abnormal glucose Suspected COVID-19 virus infection documented in this encounter Administered Medications Inactive Administered Medications - up to 3 most recent administrations Medication Order MAR Action Action Date Dose Rate Site sodium chloride 0.9% bolus 1,000 mL 1,000 mL, intravenous, at 1,000 mL/hr, Administer over 1 Hours, Once, On Edda 09/28/20 at 0522, For 1 dose New Bag 09/28/2020 5:36 AM COMBINATION PRESSER 1,000 mL 1000 mL/hr documented in this encounter Active and Recently Administered Medications Times are shown in COMBINATION PRESSER. Scheduled Medication Order 09/26/2020 09/27/2020 09/28/2020 sodium chloride 0.9% bolus 1,000 mL (COMPLETED) 1,000 mL, intravenous, at 1,000 mL/hr, Administer over 1 Hours, Once, On Edda 09/28/20 at 0522, For 1 dose 0536 (New Bag - Prov ider: Dolores Shaver RN)[id number] (Stopped - Provider: Swapna Linton RN) documented in this encounter Orders Medications Ordered That Sd ht Not Have Been Administered Count Last Ordered Date First Ordered Date sodium chloride 0.9% bolus 1,000 mL 1 09/28 documented in this encounter Additional Health Concerns Infection Onset Date Last Indicated Resolved Time COVID: Suspected 09/28/2020 09/28/2020 09/28/2020 8:58 PM COMBINATION PRESSER documented as of this encounter Care Teams Corporate Compliance Director Relationship Specialty Start Date End Date Uriel Walker MD [address] [place] [address] PCP - General Family Medicine 02/23/19 documented as of this encounter
--- OUTSIDE RECORDS SUMMARY | 2024-11-10 05:59 | XMS_ITS | Encounter Summary ---
Author Organization [facility] Care Team Providers Care Chief Order Dispatcher Name Role Phone Uriel Walker MD Primary Care Provider [phone] Encounter Details Date Type Department Care Team (Latest Contact Info) Description 11/26/2019 Travel Social History Tobacco Use Types Packs/Day [...] on file Legal Sex Female 1:53 AM BAR SUPERVISOR Gender Identity Female 11/22/2020 12:52 PM BAR SUPERVISOR Sexual Orientation Straight 11/22/2020 12 :52 PM BAR SUPERVISOR documented as of this encounter Plan of Treatment Not on file documented as of this encounter Visit Diagnoses Not on filedocumented in this encounter Care Teams Chief Order Dispatcher Relationship Specialty Start Date End Date [place] [address] PCP - General Family Medicine 02/23/19 documented as of this encounter
--- OUTSIDE RECORDS SUMMARY | 2024-11-10 05:59 | XMS_ITS | Encounter Summary ---
Author Organization [facility] Medical Group Address [address] [place] [address] Care Team Providers Care Stake Driver Name Role Phone Uriel Walker MD Primary Care Provider [phone] Encounter Details Date Type Department Care Team (Late st Contact Info) Description 02/19/2021 Orders Only [facility] [address] [place] [address] Scanning, Provider Social History Tobacco Use Types [...] on file Legal Sex Female 1:53 AM LOGISTICS ASSISTANT Gender Identity Female 11/22/2020 12:52 PM LOGISTICS ASSISTANT Sexual Orientation Straight 11/22/2020 12 :52 PM LOGISTICS ASSISTANT documented as of this encounter Plan of Treatment Not on file documented as of this encounter Procedures Procedure Name Priority Date/Time Associated Diagnosis Comments SCAN - RADIOLOGY/IMAGING 02/19/2021 documented in this encounter Results * SCAN - RADIOLOGY/IMAGING (02/19/2021) Anatomical Region Laterality Modality Other us Provider Scanning Final Result documented in this encounter Visit Diagnoses Not on filedocumented in this encounter Care Teams Stake Driver Relationship Specialty Start Date End Date Uriel Walker MD [address] [place] [address] PCP - General Family Medicine 02/23/19 documented as of this encounter
--- OUTSIDE RECORDS SUMMARY | 2024-11-10 05:59 | XMS_ITS | Encounter Summary ---
Author Organization [facility] Address [address] [place] [address] Care Team Providers Care Coal Miner Name Role Phone Uriel Walker MD Primary Care Provider [phone] Reason for Visit * Reason Onset Date Comments Appointment 02/08/2020 Encounter Details Date Type Department Care Team (Late st Contact Info) Description 02/08/2020 Telephone [facility] [address] [place] [address] Uriel Walker MD [address] [place] [address] Appointment Social History Tobacco Use Types Packs/Day [...] on file Legal Sex Female 1:53 AM BRICK WASHER Gender Identity Female 11/22/2020 12:52 PM BRICK WASHER Sexual Orientation Straight 11/22/2020 12 :52 PM BRICK WASHER COVID-19 Exposure Response Date Recorded In the last month, have you been in contact with someone who was confirmed or suspected to have Coronavirus / COVID-19? No / Unsure 01/25/2020 10:54 AM CDT documented as of this encounter Miscellaneous Notes * Telephone Encounter - Barbara Quach MA - 02/15/2020 5:06 PM CDT [phone] Spoke w/patient, verified . Patient agreed to a video visit. States she downloaded zoom rodney and that she is having trouble withher [employer] activation. Provided patient with [employer] service number to [employer] [phone] to have someone assist getting account activated. Thank you, Barbara * Telephone Encounter - Barbara Quach MA - 02/15/2020 10:30 AM CDT [phone] Left a VM for patient to return a call to our office at her earliest convenience. [phone] Spoke w/ patients motherBrandi (HIPPA approved) notified her that our office is following up with patient to make sure she is connected to [employer] and then downloaded zoom ok to complete a video visit for appointment on 02/17/2020 at 1530 with DEREK Freeman. Patients mother states that she will have patient return call to the office. Thank you, Barbara * Telephone Encounter - Barbara Quach MA - 02/08/2020 4:05 PM CDT [phone] Spoke w/ patient, verified . Offered patient to sign up for [employer] and download rodney called Zoom to complete a video visit for that appointment. Patient verbally agreed. Patient notified that our office would call to follow up her to make sure Mychart and Zoom are active. Patient verbally understood. Thank you, Barbara documented in this encounter Plan of Treatment Not on file documented as of this encounter Visit Diagnoses Not on filedocumented in this encounter Care Teams Coal Miner Relationship Specialty Start Date End Date Uriel Walker MD [address] [place] [address] PCP - General Family Medicine 02/23/19 documented as of this encounter
--- OUTSIDE RECORDS SUMMARY | 2024-11-10 05:59 | XMS_ITS | Encounter Summary ---
Author Organization [facility] Address [address] [place] [address] Care Team Providers Care County Demonstrator Name Role Phone Uriel Walker MD Primary Care Provider [phone] Encounter Details Date Type Department Care Team (Late st Contact Info) Description 01/12/2021 Telephone [facility] [address] [place] [address] Uriel Walker MD [address] [place] [address] Social History Tobacco Use Types Packs/Day Years [...] on file Legal Sex Female 1:53 AM RESEARCH LIBRARIAN Gender Identity Female 11/22/2020 12:52 PM RESEARCH LIBRARIAN Sexual Orientation Straight 11/22/2020 12 :52 PM RESEARCH LIBRARIAN documented as of this encounter Miscellaneous Notes * Telephone Encounter - Lydia Copeland NP - 01/12/2021 4:37 PM RESEARCH LIBRARIAN [phone] Spoke w/Brandie: at home test + just now. Moved to [place]. Has irregular periods but LMP 11/2020 Reviewed need to establish w/OB, pick pulling machine tender vitamin (ensure folic acid), healthy diet. No drugs/ETOH. ARCH LIBRARIAN * Telephone Encounter - Meliza Bradley - 01/12/2021 4:21 PM CST 01/12/2021 Pt just took a test and found out she is positive She has questions and concerns for you and wants you to call her Stated this is her 1st Pt cbn [phone] ARCH LIBRARIAN documented in this encounter Plan of Treatment Not on file documented as of this encounter Visit Diagnoses Not on filedocumented in this encounter Care Teams County Demonstrator Relationship Specialty Start Date End [place] [address] PCP - General Family Medicine 02/23/19 documented as of this encounter
--- OUTSIDE RECORDS SUMMARY | 2024-11-10 05:59 | XMS_ITS | Encounter Summary ---
Author Organization [facility] Medical [facility] Address [address] [place] [address] Care Team Providers Care Art Objects Salesperson Name Role Phone Uriel Walker MD Primary Care Provider [phone] Reason for Visit * Reason Comments Interested in starting control spears s not have a type of control in mind Anxiety/Depression interested in gettin g back on anxiety med Encounter Details Date Type Department Care Team (Late st Contact Info) Description 11/09/2019 9:30 AM ROUTE SERVICE MANAGER Office Visit [facility] of [address] [address] Kisha Murcia, CONTROL CLERK [employer]OD [employer] BEVERAGE [address] [place] [address] Encounter for counseling regarding contraception (Primary Dx); Secondary oligomenorrhea; Anxiety; Morbid obesity with BMI of 45.0-49.9, adult (CMS/[facility]) Social History Tobacco Use Types Packs/Day Years [...] on file Legal Sex Female 1:53 AM ROUTE SERVICE MANAGER Gender Identity Female 11/22/2020 12:52 PM ROUTE SERVICE MANAGER Sexual Orientation Straight 11/22/2020 12 :52 PM ROUTE SERVICE MANAGER documented as of this encounter Last Filed Vital Signs Vital Sign Reading Time Taken Comments Blood Pressure 114/80 11/09/2019 9:35 AM ROUTE SERVICE MANAGER Pulse 92 11/09/2019 9:35 AM ROUTE SERVICE MANAGER Temperature 37 ??C (98.6 ??F) 11/09/2019 9:35 AM ROUTE SERVICE MANAGER Respiratory Rate 20 11/09/2019 9:35 AM ROUTE SERVICE MANAGER Oxygen Saturation 98% 11/09/2019 9:35 AM ROUTE SERVICE MANAGER Inhaled Oxygen Concentration - - Weight 131.6 kg (290 lb 3.2 oz) 11/09/2019 9:35 AM ROUTE SERVICE MANAGER Height 167.6 cm (5' 6 ) 11/09/2019 9:35 AM ROUTE SERVICE MANAGER Body Mass Index 46.84 11/09/2019 9:35 AM ROUTE SERVICE MANAGER Body Mass Index Percentile 99.90% 11/09/2019 9:3 5 AM ROUTE SERVICE MANAGER Growth Chart: [facility] (Girls, 2- 20 Years) documented in this encounter Ordered Prescriptions Prescription Sig Dispense Quantity Refills Last Filled Start Date End Date FLUoxetine (PROzac) 20 mg tabletIndications:An xiety with Depression Take 1 tablet (20 mg total) by mouth daily 90 tablet 11/09/2019 0 norethindrone-e.estr adiol-iron (LOESTIN 24 FE) 1 mg-20 mcg (24)/75 mg (4) per tabletIndications:En counter for counseling regarding contraception,Second kaitlin oligomenorrhea Take 1 tablet by mouth daily 84 tablet 3 11/09/2019 0 documented in this encounter Progress Notes * Kisha Murcia, DEREK - 11/09/2019 9:30 AM CST Images from the original note were not included. [facility] Chief Complaint. Chief Complaint Patient presents with ??? Interested in starting control does not have a type of control in mind ??? Anxiety/Depression interested in getting back on anxiety med HPI. Patient is a 18 y.o. female Presents for contraception counseling and management of anxiety. Contraception - menarche at age 13, reports irregular periods up to 3 months between cycles. Reports varying menstrual bleeding patterns from light continuous spotting to HMB. Denies dysmenorrhea or dyschezia. Has not previously utilized OCPs. Not sexually active. Prior historical evaluation for PCOS with FORE[facility]UNTER. Anxiety - worsening; reports daily episodes of anxiety and increased irritability related to school/work and mother's chronic illness. Has previously taken fluoxetine with improvement in symptoms. Anxiety Presents for follow-up visit. Symptoms include irritability and nervous/anxious behavior. Patient reports no chest pain or shortness of breath. Symptoms occur most days. The severity of symptoms is moderate. The quality of sleep is good. Nighttime awakenings: occasional. Past Medical History: Diagnosis Date ??? Fatty liver disease, nonalcoholic 05/03/2016 ??? Seasonal allergies Past Surgical History: Procedure Laterality Date ??? TONSILECTOMY, ADENOIDECTOMY, BILATERAL MYRINGOTOMY AND TUBES ??? TONSILLECTOMY 11/03/2016 Tonsillectomy HOME MEDICATIONS : blood glucose diagnostic (CONTOUR NEXT TEST STRIPS) strip lancets (MICROLET LANCET) misc triamcinolone (KENALOG) 0.1 % ointment FLUoxetine (PROzac) 20 mg tablet norethindrone-e.estradiol-iron (LOESTIN 24 FE) 1 mg-20 mcg (24)/75 mg (4) per tablet dicyclomine (BENTYL) 20 mg tablet ondansetron ODT (ZOFRAN-ODT) 4 mg disintegrating tablet No Known Allergies Social History Tobacco Use ??? Smoking status: Never Smoker ??? Smokeless tobacco: Never Used Substance Use Topics ??? Alcohol use: Never Frequency: Never Family History Problem Relation Age of Onset ??? Diabetes Mother Diabetes mellitus; ??? Kidney failure Mother ??? Hypertension Father Hypertension; Review of Systems: Review of Systems Constitutional: Positive for irritability. Respiratory: Negative for shortness of breath. Cardiovascular: Negative for chest pain and leg swelling. Genitourinary: Positive for menstrual problem. Psychiatric/Behavioral: The patient is nervous/anxious. BP 114/80 (BP Location: Left arm, Patient Position: Sitting) Pulse 92 Temp 37 ??C (98.6 ??F) (Oral) Resp 20 Ht 167.6 cm (5' 6 ) Wt 131.6 kg (290 lb 3.2 oz) SpO2 98% BMI 46.84 kg/m?? Physical Exam: Physical Exam Vitals signs and nursing note reviewed. Constitutional: General: She is not in acute distress. Appearance: She is well-developed. She is obese. HENT: Head: Normocephalic and atraumatic. Neck: Musculoskeletal: Normal range of motion and neck supple. Comments: Acanthosis nigricans Cardiovascular: Rate and Rhythm: Normal rate and regular rhythm. Heart sounds: Normal heart sounds. No murmur. Pulmonary: Effort: Pulmonary effort is normal. Breath sounds: Normal breath sounds. Musculoskeletal: Normal range of motion. Lymphadenopathy: Cervical: No cervical adenopathy. Skin: General: Skin is warm and dry. Neurological: Mental Status: She is alert and oriented to person, place, and time. Psychiatric: Mood and Affect: Mood normal. Thought Content: Thought content does not include homicidal or suicidal ideation. Assessment & Plan: Diagnoses and all orders for this visit: Encounter for counseling regarding contraception (Primary) - norethindrone-e.estradiol-iron (LOESTIN 24 FE) 1 mg-20 mcg (24)/75 mg (4) per tablet; Take 1 tablet by mouth daily - Extensive discussion regarding hormonal vs nonhormonal contraceptive options. Reviewed risks and benefits of OCPs including risk for DVT/PE. Discussed potential decreased efficacy secondary to elevated BMI. Advised patient to use a backup method of contraception for the first 2 weeks when initiating OCP. Reviewed safe sex practices and STI screening. Emphasized importance of taking OCP consistently. Secondary oligomenorrhea - norethindrone-e.estradiol-iron (LOESTIN 24 FE) 1 mg-20 mcg (24)/75 mg (4) per tablet; Take 1 tablet by mouth daily - Suspect PCOS; reviewed pharmacologic management to help regulate cycles. Reviewed importance of menstruation at least every 90 days to prevent development of endometrial hyperplasia. Will continue to monitor. Morbid obesity with BMI of 45-49.0, adult (CMS/[facility]) - Discussed diet and exercise to achieve weight loss. Recommend at least 150 minutes of physical activity weekly. Recommend limiting refined sugar, simple carbohydrates, fast foods, and processed foods. Increase intake of lean meats, low-fat dairy, fresh fruits/vegetables, and fiber. Drink plenty of water and eliminate sugar-sweetened beverages. Anxiety - FLUoxetine (PROzac) 20 mg tablet; Take 1 tablet (20 mg total) by mouth daily - Reviewed SSRI Black Box Warning of increased risk of suicidal thinking and behavior in children, adolescents, and young adults < age 24 with major depressive disorder (MDD) and other psychiatricdisorders. Discussed benefit vs risk of SSRI therapy. Recommend close follow-up for clinical worsening, suicidality, or unusual changes in behavior. Encouraged family members/caregivers to closely observe patient and communicate any concerns with the office. Discontinue medication and seek immediate medial attention if any thoughts of suicide/homicide occur. Follow-up in 3 months. BMI Follow-up includes: education provided. Body mass index is 46.84 kg/m??. We discussed dose, use, and potential [...] withthe plan of care. Kisha Murcia NP Cosigned by Uriel Walker MD at 11/16/2019 8:19 AM ROUTE SERVICE MANAGER E SERVICE MANAGER E SERVICE MANAGER documented in this encounter Plan of Treatment Not on file documented as of this encounter Visit Diagnoses Diagnosis Encounter for counseling regarding contraception- Primary Secondary oligomenorrhea Scanty or infrequent menstruation Anxiety Anxiety state, unspecified Morbid obesity with BMI of 45.0-49.9, adult (HCC) documented in this encounter Discontinued Medications Medication Sig Discontinue Reason Start Date End Da te dicyclomine (BENTYL) 20 mg tabletIndications:General ized abdominal pain Take 1 tablet (20 mg total) by mouth 4 (four) times a day as needed (generalized abd pain) Therapy completed 02/23/2019 11/09/2019 ondansetron ODT (ZOFRAN-ODT) 4 mg disintegrating tablet Dissolve 1 tablet oral every 4 hours as needed for nausea or vomiting. Therapy completed 01/29/2019 11/09/2019 documented as of this encounter Historical Medications * This list may reflect changes made after this encounter. triamcinolone (KENALOG) 0.1 % ointment APPLY TOPICALLY TWICE DAILY TO DORSAL HAND FOR UP TO 14 DAYS 10/06/2019 3 added in this encounter Care Teams Art Objects Salesperson Relationship Specialty Start Date End Date Uriel Walker MD [address] [place] [address] PCP - General Family Medicine 02/23/19 documented as of this encounter
--- OUTSIDE RECORDS SUMMARY | 2024-11-10 05:59 | XMS_ITS | Encounter Summary ---
Author Organization [facility] Address [address] [place] [address] Phone Care Team Providers Care Moose Hunter Name Role Phone Uriel Walker MD Primary Care Provider [phone] [phone] Reason for Visit * Reason Onset Date Comments neuro apt 11/16/2020 Encounter Details Date Type Department Care Team (Late st Contact Info) Description 11/16/2020 Telephone [facility] Ophthalmology [address] [place] [address] No, Physician neuro apt Social History Tobacco Use Types Packs/Day Years [...] on file Legal Sex Female 1:53 AM AUTO BODY MECHANIC Gender Identity Female 11/22/2020 12:52 PM AUTO BODY MECHANIC Sexual Orientation Straight 11/22/2020 12 :52 PM AUTO BODY MECHANIC documented as of this encounter Miscellaneous Notes * Telephone Encounter - Monica Negro - 11/16/2020 3:16 PM CST Called pt left message to call us back to make apt with Dr. Phillips Dx.OPTIC PAPILLITIS OS Ref. Dr. BRANDIE KING Schedule for 11/29 Thank you. Please bring MRI BODY MECHANIC * Telephone Encounter - Benita Griggs BS - 11/16/2020 3:11 PM CST Pt called back, scheduled her for 11/29/2020 with [facility] per the last encounter. Pt requested her mom come with her to the appt. I stated that with covid only the pt is allowed at this time. Pt is requesting to know if the doctor could call her mom after the appt or if she could call her mom during andput her on speaker. Pt also stated her referring doctor mailed the MRI to us. Please call and advise if the pt can call her mom during her visit with the doctor. (P) [phone] BODY MECHANIC * Telephone Encounter - Anastasia Samson - 11/16/2020 2:07 PM CST Ok to schedule with Dr. PHILLIPS With testing HVF and OCT Dx.OPTIC PAPILLITIS OS Ref. Dr. BRANDIE KING Schedule for 11/29 Thank you. Please bring MRI BODY MECHANIC * Telephone Encounter - Monica Negro - 11/16/2020 9:00 AM CST New PT APPT Request: Who pt is being referred to:Neuro Reason/Diagnoses:optic neuritis Referring doctor: Dr. Kennedy Referring doctor contact information:[phone] How soon: next inés Transfer of care or 2nd opinion?transfer care Were notes requested?faxing over notes Additional comments: BODY MECHANIC documented in this encounter Plan of Treatment Not on file documented as of this encounter Visit Diagnoses Not on filedocumented in this encounter Care Teams Moose Hunter Relationship Specialty Start Date End Date Uriel Walker MD [address] [place], [place] [address] PCP - General Family Medicine 02/23/19 documented as of this encounter
--- OUTSIDE RECORDS SUMMARY | 2024-11-10 05:59 | XMS_ITS | Encounter Summary ---
Author Organization [facility] Healthcare Address [address] [place] [id number] Care Team Providers Care Mixing Machine Attendant Name Role Phone Uriel Walker MD Primary Care Provider [phone] Reason for Visit * Reason Comments Headache Vomiting Encounter Details Date Type Department Care Team (Late st Contact Info) Description 12/07/2021 7:27 PM BROKE WORKER - 12/07/2021 11:06 PM BROKE WORKER Emergency [facility] Emergency Department 1 [place] [address] Levon Comer MD 1 [place] [address] Acute intractable headache, unspecified headache type (Primary Dx); Positive test Discharge Disposition: Discharge to home or self [...] on file Legal Sex Female 1:53 AM BROKE WORKER Gender Identity Female 11/22/2020 12:52 PM BROKE WORKER Sexual Orientation Straight 11/22/2020 12 :52 PM BROKE WORKER documented as of this encounter Last Filed Vital Signs Vital Sign Reading Time Taken Comments Blood Pressure 148/101 12/07/2021 11:05 PM BROKE WORKER Pulse 87 12/07/2021 11:05 PM BROKE WORKER Temperature 37.2 ??C (98.9 ??F) 12/07/2021 4:47 PM CS T Respiratory Rate 20 12/07/2021 4:47 PM BROKE WORKER Oxygen Saturation 100% 12/07/2021 11:05 PM BROKE WORKER Inhaled Oxygen Concentration - - Weight 122.5 kg (270 lb) 12/07/2021 4:47 PM BROKE WORKER Height 165.1 cm (5' 5 ) 12/07/2021 4:47 PM BROKE WORKER Body Mass Index 44.93 12/07/2021 4:47 PM BROKE WORKER documented in this encounter Discharge Diagnoses Diagnosis Headache, unspecified - HEADACHE, UNSPECIFIED Encounter for test, result positive - ENCOUNTER FOR TEST, RESULT POSITIVE documented in this encounter Discharge Instructions * Discharge Instructions* Levon Comer MD - 12/07/2021 10:45 PM BROKE WORKER Your headache improved with migraine medication. You blood work was OK. Your test was positive. For pain you may take 2 Extra Strength Tylenol every 4-6 hours as needed. Do not take medications such as ibuprofen (aka motrin, advil), naproxen (aka aleve), or aspirin when as they may case problems for the baby. You should begin taking a daily vitamin (available over the counter at any pharmacy). E WORKER * Attachments The following attachments cannot be sent through Care Everywhere. * Headache, Unspecified (Mongolian) * (AfterCare(R) Instructions(ER/ED)) (Mongolian) documented in this encounter Medications at Time of Discharge blood glucose diagnostic (CONTOUR NEXT TEST STRIPS) strip Use to test blood sugar twice daily or as directed. 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 documented in this encounter ED Notes * Levon Comer MD - 12/07/2021 8:06 PM CST HPI Chief Complaint Patient presents with ??? Headache ??? Vomiting Patient presents c/o Left frontal HARDEN. Sx duration 5 days. She has a Hx of migraines, morbid obesity, anxiety, and pre-DM. She reports Sx similar to usual migraines but worse in severity and lasting longer than usual. Some nausea/vomiting, Some sensitivity to sound but not light. No recent injury or trauma. Took Ibu 600 w/o relief at ~3pm. Did not call PCP prior to coming. Patient History: Patient Active Problem List Diagnosis Date Noted ??? Pain radiating to lower abdomen 06/26/2020 ??? Colicky RUQ abdominal pain 06/26/2020 ??? Prediabetes 06/25/2020 ??? Encounter for screening for lipoid disorders 02/17/2020 ??? Secondary oligomenorrhea 02/17/2020 ??? Encounter for counseling regarding contraception 02/17/2020 ??? Morbid obesity with BMI of 45.0-49.9, adult ([facility]) (HCC) 02/23/2019 ??? Anxiety 03/17/2017 ??? Psychological factor affecting physical condition 05/17/2011 ??? Snoring 05/17/2011 Past Medical History: Diagnosis Date ??? Fatty liver disease, nonalcoholic 05/03/2016 ??? Hx of migraine headaches ??? Morbid obesity with BMI of 40.0-44.9, adult ([facility]) ??? Seasonal allergies Past Surgical History: Procedure Laterality Date ??? TONSILECTOMY, ADENOIDECTOMY, BILATERAL MYRINGOTOMY AND TUBES Family History Problem Relation Age of Onset ??? Diabetes Mother Diabetes mellitus; ??? Kidney failure Mother ??? Hypertension Father Hypertension; ??? Asthma Father Social History Tobacco Use ??? Smoking status: Never Smoker ??? Smokeless tobacco: Never Used Vaping Use ??? Vaping Use: Never used ??? Passive vaping exposure: Yes Substance Use Topics ??? Alcohol use: Never ??? Drug use: Never Social History Social History Narrative ??? Not on file Review of Systems Review of Systems Constitutional: Negative for chills, fatigue and fever. HENT: Positive for congestion and postnasal drip. Negative for rhinorrhea. Sound sensitivity Eyes: Negative for photophobia and visual disturbance. Respiratory: Negative for cough and shortness of breath. Cardiovascular: Negative for chest pain. Gastrointestinal: Positive for nausea and vomiting. Negative for abdominal pain, constipation and diarrhea. Endocrine: Negative. Genitourinary: Negative for difficulty urinating, dysuria, flank pain, frequency, pelvic pain, urgency, vaginal bleeding and vaginal discharge. Musculoskeletal: Negative for back pain. Skin: Negative. Allergic/Immunologic: Negative. Neurological: Positive for headaches. Negative for dizziness, light-headedness and numbness. Hematological: Negative. Psychiatric/Behavioral: Negative. All other systems reviewed and are negative. Breast: Negative. Physical Exam ED Triage Vitals [12/07/21 1647] Temp Pulse Resp BP SpO2 37.2 ??C (98.9 ??F) 109 20 141/99 100 % Temp src Heart Rate Source Patient Position BP Location FiO2 (%) Temporal -- -- -- -- Physical Exam Vitals and nursing note reviewed. Constitutional: General: She is not in acute distress. Appearance: She is obese. She is not ill-appearing, toxic-appearing or diaphoretic. HENT: Head: Normocephalic and atraumatic. Nose: Nose normal. Mouth/Throat: Mouth: Mucous membranes are moist. Pharynx: Oropharynx is clear. Eyes: Extraocular Movements: Extraocular movements intact. Conjunctiva/sclera: Conjunctivae normal. Pupils: Pupils are equal, round, and reactive to light. Cardiovascular: Rate and Rhythm: Normal rate and regular rhythm. Pulses: Normal pulses. Heart sounds: Normal heart sounds. Pulmonary: Effort: Pulmonary effort is normal. Breath sounds: Normal breath sounds. Abdominal: General: Abdomen is flat. Palpations: Abdomen is soft. Musculoskeletal: General: Normal range of motion. Cervical back: Normal range of motion and neck supple. No rigidity or tenderness. Skin: General: Skin is warm and dry. Capillary Refill: Capillary refill takes less than 2 seconds. Findings: No rash. Neurological: General: No focal deficit present. Mental Status: She is alert and oriented to person, place, and time. Mental status is at baseline. Psychiatric: Mood and Affect: Mood normal. Behavior: Behavior normal. Thought Content: Thought content normal. Judgment: Judgment normal. MDM Medical Decision Making Differential Diagnosis or Management Options: DDx includes migraine HARDEN, OUTSIDE PRODUCTION INSPECTOR mass, ICH, viral syndrome Critical care performed: No ED Course as of 12/07/212245 Time: 12/07 2142 Value: HCG, ur(!): Positive Comment: (Reviewed) By: Levon Comer MD Time: 12/07 2142 Value: Epithelial cells, squamous, ur(!): 11-20 Comment: UA contaminated By: Levon Comer MD Time: 12/07 2241 Comment: Sx resolved, stable to f/u with PCP. Patient updated at bedside. By: Levon Comer MD Time: 12/07 2244 Comment: DC / Follow-up instructions Your headache improved with migraine medication. You blood work was OK. Your test was positive. For pain you may take 2 Extra Strength Tylenol every 4-6 hours as needed. Do not take medications such as ibuprofen (aka motrin, advil), naproxen (aka aleve), or aspirin when as they may case problems for the baby. You should begin taking a daily vitamin (available over the counter at any pharmacy). By: Levon Comer MD Final diagnoses: Acute intractable headache, unspecified headache type Positive test Levon Comer MD 12/07/216 E WORKER * Lis Scott RN - 12/07/2021 4:46 PM CST Pt presents to ER with c/o headache x 5 days. Pt also reports vomiting. States she can't keep anything down. Denies hx migraines. Pt took Ibuprofen 1 hour ago. E WORKER documented in this encounter Plan of Treatment Not on file documented as of this encounter Procedures Procedure Name Priority Date/Time Associated Diagnosis Comments URINALYSIS AND REFLEX TO MICROSCOPIC AND CULTURE Routine 12/07/2021 9:00 PM BROKE WORKER HCG, URINE, QUALITATIVE STAT 12/07/2021 9:00 PM BROKE WORKER URINALYSIS, MICROSCOPIC ONLY Routine 12/07/2021 9:00 PM BROKE WORKER EGFR STAT 12/07/2021 8:04 PM BROKE WORKER DIFFERENTIAL AUTO STAT 12/07/2021 8:0 4 PM BROKE WORKER CBC WITH AUTO DIFFERENTIAL STAT 12/07/2021 8:04 PM BROKE WORKER HCG, BLOOD, QUANTITATIVE Add-On 12/07/2021 8:04 PM BROKE WORKER BASIC METABOLIC PANEL STAT 12/07/2021 8:04 PM BROKE WORKER documented in this encounter Results * (ABNORMAL) Urinalysis, microscopic only (12/07/2021 9:00 PM BROKE WORKER) WBC, ur 6-10(A) 0 - 5 /HPF [facility] ([place]) RBC, ur 0-2 0 - 2 /HPF [facility] ([place]) Epithelial cells, squamous, ur 11-20(A) 0 - 5 /HPF [facility] ([place]) Bacteria, ur Trace(A) [facility] ([place]) Mucous, ur Present(A) [facility] ([place]) Culture Reflex Comment Reflex conditions for urine culture (WBC >10) not met. [facility] ([place]) Urine 12/07/2021 9:00 PM BROKE WORKER 12/07/2021 9:08 PM BROKE WORKER Levon Comer MD LAB URINE ORDERABLES Final Result Performing Organization Address City/[facility]/ZIP Co de Phone Number [facility] ([place]) 1 [facility] [place] [address] * (ABNORMAL) hCG, urine, qualitative (12/07/2021 9:00 PM BROKE WORKER) HCG, ur Positive(A) Negative [facility] ([place]) Urine 12/07/2021 9:00 PM BROKE WORKER 12/07/2021 9:08 PM BROKE WORKER Levon Comer MD LAB URINE ORDERABLES Final Result Performing Organization Address [facility] Co de Phone Number [facility] ([place]) 1 [facility] [place] [address] * (ABNORMAL) Urinalysis reflex to microscopic and culture Urine (12/07/2021 9:00 PM BROKE WORKER) Color, ur Yellow Yellow [facility] ([place]) Clarity, ur Turbid(A) Clear [facility] ([place]) Specific gravity, ur 1.037(H) 1.003 - 1.030 [facility] ([place]) pH, urine 6.5 [facility] ([place]) Protein, ur ql 1+(A) Negative [facility] ([place]) Glucose, ur ql Trace(A) Negative [facility] ([place]) Ketones, ur Trace Negative [facility] ([place]) Bilirubin, ur Negative Negative [facility] ([place]) Blood, ur Negative Negative [facility] ([place]) Urobilinogen, ur 2.0(A) <2.0 mg/dL [facility] ([place]) Nitrite, ur Negative Negative [facility] ([place]) Leukocyte esterase, ur 3+(A) Negative [facility] ([place]) UA reflex comment Reflex to microscopic UA will be performed. [facility] ([place]) Urine 12/07/2021 9:00 PM BROKE WORKER 12/07/2021 9:08 PM BROKE WORKER Narrative [facility] ([place]) - 12/07/2021 9:15 PM BROKE WORKER ?? Urine pH is affected by diet, medications, systemic acid-base disturbances, and renal tubular function. ??pH may affect urinary stone formation. ??For example, urine pH below 6.0 may help reduce the tendency for calcium phosphate stones and pH greater than 6.0 may reduce the tendency for uric acid stone formation. Source: [facility]. Last revised 2017 us Levon Comer MD LAB MICROBIOLOGY - GENERAL ORDERABLES Final Result [facility] ([place]) 1 [facility] Department of Laboratories [place], [place] [id number] * (ABNORMAL) hCG, blood, quantitative (12/07/2021 8:04 PM BROKE WORKER) hCG, quant 97,269.0( H) 0.0 - 5.0 IUnits/L [facility] ([place]) Comment: Interpretive Data Non- Female premenopausal: < or = 5.0 IUnits/L Men: < 5.0 IUnits/L Weeks of Gestation ? Reference Interval ?? 3 to 6 ? 5.8-31,795 IUnits/L ?? 7 to 10 ? 3,697-186,977 IUnits/L ??12 to 15 ?27,832- 70,791 IUnits/L ??16 to 18 ? 9,040- 58,179 IUnits/L Current Interpretive Data was last revised on 2018. Blood 12/07/2021 8:04 PM BROKE WORKER 12/07/2021 9:53 PM BROKE WORKER us Levon Comer MD LAB BLOOD ORDERABLES Final Result [facility] ([place]) 1 [facility] [place] [address] * eGFR (12/07/2021 8:04 PM BROKE WORKER) eGFR 140 mL/min/1. 73 m2 [facility] ([place]) Comment: Interpretive Data Reference Interval Normal ?>/= [...] Current interpretive data was last reviewed 2021. Blood 12/07/2021 8:04 PM BROKE WORKER 12/07/2021 8:07 PM BROKE WORKER us Levon Comer MD LAB BLOOD ORDERABLES Final Result [facility] ([place]) 1 [facility] [place] [address] * Differential, auto (12/07/2021 8:04 PM BROKE WORKER) Neutrophil abs 6.0 1.7 - 6.5 K/cumm [facility] ([place]) Imm gran abs 0.0 0.0 - 0.1 K/cumm [facility] ([place]) Lymphocyte abs 1.8 0.8 - 3.3 K/cumm [facility] ([place]) Monocyte abs 0.5 0.2 - 0.8 K/cumm [facility] ([place]) Eosinophil abs 0.0 0.0 - 0.5 K/cumm [facility] ([place]) Basophil abs 0.0 0.0 - 0.1 K/cumm [facility] ([place]) Neutrophil pct 72.1 % [facility] ([place]) Comment: Interpretive Data Percent cell count reference ranges are not reported, since discordance with absolute values may lead to misinterpretation of CBC data. Current Interpretive Data was last revised on 2018. Imm gran pct 0.2 % [facility] ([place]) Comment: Interpretive Data Percent cell count reference ranges are not reported, since discordance with absolute values may lead to misinterpretation of CBC data. Current Interpretive Data was last revised on 2018. Lymphocyte pct 21.5 % [facility] ([place]) Comment: Interpretive Data Percent cell count reference ranges are not reported, since discordance with absolute values may lead to misinterpretation of CBC data. Current Interpretive Data was last revised on 2018. Monocyte pct 5.6 % [facility] ([place]) Comment: Interpretive Data Percent cell count reference ranges are not reported, since discordance with absolute values may lead to misinterpretation of CBC data. Current Interpretive Data was last revised on 2018. Eosinophil pct 0.5 % [facility] ([place]) Comment: Interpretive Data Percent cell count reference ranges are not reported, since discordance with absolute values may lead to misinterpretation of CBC data. Current Interpretive Data was last revised on 2018. Basophil pct 0.1 % [facility] ([place]) Comment: Interpretive Data Percent cell count reference ranges are not reported, since discordance with absolute values may lead to misinterpretation of CBC data. Current Interpretive Data was last revised on 2018. Blood 12/07/2021 8:04 PM BROKE WORKER 12/07/2021 8:07 PM BROKE WORKER us Levon Comer MD LAB BLOOD ORDERABLES Final Result [facility] ([place]) 1 [facility] Department [place] [address] * (ABNORMAL) Basic metabolic panel (12/07/2021 8:04 PM BROKE WORKER) Sodium 136 135 - 145 mmol/L [facility] ([place]) Potassium, pl 3.6 3.3 - 4.9 mmol/L [facility] ([place]) Chloride 101 97 - 110 mmol/L [facility] ([place]) CO2 24 22 - 32 mmol/L [facility] ([place]) Anion gap 11 2 - 15 mmol/L [facility] ([place]) BUN 8 8 - 25 mg/dL [facility] ([place]) Creatinine 0.46(L) 0.60 - 1.10 mg/dL [facility] ([place]) Glucose 94 70 - 199 mg/dL [facility] ([place]) [...] 8.5 - 10.3 mg/dL [facility] ([place]) Blood 12/07/2021 8:04 PM BROKE WORKER 12/07/2021 8:07 PM BROKE WORKER us Levon Comer MD LAB BLOOD ORDERABLES Final Result [facility] ([place]) 1 [facility] [place] [address] * (ABNORMAL) CBC with auto differential (12/07/2021 8:04 PM BROKE WORKER) WBC 8.3 3.8 - 9.9 K/cumm [facility] ([place]) Hgb 11.9 11.9 - 15.5 g/dL [facility] ([place]) Hct 37.0 35.6 - 45.5 % [facility] ([place]) Plt 336 150 - 400 K/cumm [facility] ([place]) MPV 8.7(L) 9.1 - 12.3 fL [facility] ([place]) RBC 4.91 3.90 - 5.20 M/cumm [facility] ([place]) MCV 75.4(L) 81.3 - 96.4 fL [facility] ([place]) MCH 24.2(L) 27.1 - 33.3 pg [facility] ([place]) MCHC 32.2(L) 32.3 - 35.7 g/dL [facility] ([place]) RDW CV 15.6(H) 11.1 - 14.9 % [facility] ([place]) RDW SD 41.8 35.7 - 48.1 fL [facility] ([place]) NRBC abs 0.00 0.00 - 0.01 K/cumm [facility] ([place]) Blood 12/07/2021 8:04 PM BROKE WORKER 12/07/2021 8:07 PM BROKE WORKER us Levon Comer MD LAB BLOOD ORDERABLES Final Result [facility] ([place]) 1 [facility] [place] [address] documented in this encounter Visit Diagnoses Diagnosis Acute intractable headache, unspecified headache type- Primary Positive test examination or test, positive result documented in this encounter Administered Medications Inactive Administered Medications - up to 3 most recent administrations Medication Order MAR Action Action Date Dose Rate Site diphenhydrAMINE (BENADRYL) injection 50 mg 50 mg, intravenous, Administer over 2 Minutes, Once, On Fri12/07/21 at 1950, For 1 dose Given 12/07/2021 8:11 PM BROKE WORKER 50 mg ketorolac (TORADOL) 30 mg/mL (1 mL) injection 30 mg 30 mg, intravenous, Once, On Fri12/07/21 at 1950, For 1 dose, For Adult IV push, administer over 15 seconds Given 12/07/2021 8:11 PM BROKE WORKER 30 mg prochlorperazine (COMPAZINE) injection 10 mg 10 mg, intravenous, Administer over 2 Minutes, Once, On Fri12/07/21 at 1950, For 1 dose Given 12/07/2021 8:11 PM BROKE WORKER 10 mg sodium chloride 0.9% bolus 1,000 mL 1,000 mL, intravenous, Once, On Fri12/07/21 at 1950, For 1 dose New Bag 12/07/2021 8:10 PM BROKE WORKER 1,000 mL documented in this encounter Active and Recently Administered Medications Times are shown in BROKE WORKER. Scheduled Medication Order 12/05/2021 12/06/2021 12/07/2021 diphenhydrAMINE (BENADRYL) injection 50 mg (COMPLETED) 50 mg, intravenous, Administer over 2 Minutes, Once, On Fri12/07/21 at 1950, For 1 dose 2010 (Given - Provid er: Chris Gonzalez RN) ketorolac (TORADOL) 30 mg/mL (1 mL) injection 30 mg (COMPLETED) 30 mg, intravenous, Once, On Fri12/07/21 at 1950, For 1 dose, For Adult IV push, administer over 15 seconds 2010 (Given - Provid er: Chris Gonzalez RN) prochlorperazine (COMPAZINE) injection 10 mg (COMPLETED) 10 mg, intravenous, Administer over 2 Minutes, Once, On Fri12/07/21 at 1950, For 1 dose 2010 (Given - Provid er: Chris Gonzalez RN) sodium chloride 0.9% bolus 1,000 mL (COMPLETED) 1,000 mL, intravenous, Once, On Fri12/07/21 at 1950, For 1 dose 2009 (New Bag - Prov ider: Chris Gonzalez RN)[id number] (Stopped - Provider: Chris Gonzalez RN) documented in this encounter Care Teams Mixing Machine Attendant Relationship Specialty Start Date End Date Uriel Walker MD [address] [place] [address] PCP - General Family Medicine 02/23/19 documented as of this encounter
--- OUTSIDE RECORDS SUMMARY | 2024-11-10 05:59 | XMS_ITS | Encounter Summary ---
Author Organization [facility] Address [address] [place] [address] Care Team Providers Care Systems Qa Analyst Name Role Phone Uriel Walker MD Primary Care Provider [phone] Reason for Referral * Diagnostic Imaging (Routine) - Closed Specialty Diagnoses / Procedures Referred By Geraldo low Referred To Contact Diagnoses Acute pain of left wrist Procedures XR Wrist Left 3+ Vw Kisha Murcia, DEREK [address] [place] [address] Phone: tel: fax: [address] [phone] Referral ID Status Reason Start Date Expiration Date Visits Re quested Visits Authorized [id number] Closed 11/26/2019 06/06/2021 1 1 ENTOLOGIST Reason for Visit * Diagnostic Imaging (Routine) - Closed Specialty Diagnoses / Procedures Referred By Geraldo low Referred To Contact Diagnoses Acute pain of left wrist Procedures XR Wrist Left 3+ Vw Kisha Murcia, DEREK [address] [place] [address] Phone: tel: fax: [address] [phone] Referral ID Status Reason Start Date Expiration Date Visits Re quested Visits Authorized [id number] Closed 11/26/2019 06/06/2021 1 1 Encounter Details Date Type Department Care Team (Latest Contact Info) Description 11/29/2019 3:14 PM FERMENTOLOGIST - 11/29/2019 11:59 PM FERMENTOLOGIST Hospital Encounter [facility] [address] [place] [address] Uriel Walker MD [address] [place] [address] Kisha Murcia NP [address] [place] [address] Acute pain of left wrist Discharge Disposition: Discharge to home or self [...] on file Legal Sex Female 1:53 AM FERMENTOLOGIST Gender Identity Female 11/22/2020 12:52 PM FERMENTOLOGIST Sexual Orientation Straight 11/22/2020 12 :52 PM FERMENTOLOGIST documented as of this encounter Medications at Time of Discharge cyclobenzaprine (FLEXERIL) 10 mg tabletIndications:Ne ck pain Take 1 tablet (10 mg total) by mouth nightly as needed for muscle spasms 30 tablet 11/26/2019 0 FLUoxetine (PROzac) 20 mg tabletIndications:An xiety with Depression Take 1 tablet (20 mg total) by mouth daily 90 tablet 11/09/2019 0 naproxen (NAPROSYN) 500 mg tabletIndications:Ne ck pain Take 1 tablet (500 mg total) by mouth 2 (two) times a day as needed for pain (pain) 60 tablet 11/26/2019 0 blood glucose diagnostic (CONTOUR NEXT TEST STRIPS) strip Use to test blood sugar twice daily or as directed. 08/25/2018 3 lancets (MICROLET LANCET) misc 5-9 each 08/25/2018 3 meclizine (ANTIVERT) 12.5 mg tabletIndications:Di zziness Take 1 tablet (12.5 mg total) by mouth 3 (three) times a day as needed for dizziness 30 tablet 11/26/2019 0 norethindrone-e.estr adiol-iron (LOESTIN 24 FE) 1 mg-20 mcg (24)/75 mg (4) per tabletIndications:En counter for counseling regarding contraception,Second kaitlin oligomenorrhea Take 1 tablet by mouth daily 84 tablet 3 11/09/2019 0 triamcinolone (KENALOG) 0.1 % ointment APPLY TOPICALLY TWICE DAILY TO DORSAL HAND FOR UP TO 14 DAYS 10/06/2019 3 documented as of this encounter Discharge Disposition Disposition Code Departure Means Destination Discharge to home or self care documented in this encounter Plan of Treatment Not on file documented as of this encounter Procedures Procedure Name Priority Date/Time Associated Diagnosis Comments XR WRIST LEFT 3 OR MORE VIEWS Schedule Routine, Read Routine (OP Routine) 11/29/2019 3:34 PM FERMENTOLOGIST Acute pain of left wrist documented in this encounter Results * XR Wrist Left 3+ Vw (11/29/2019 3:34 PM FERMENTOLOGIST) Anatomical Region Laterality Modality Upper Extremities, Wrist Left Compute d Radiography 11/29/2019 3:34 PM FERMENTOLOGIST Narrative 11/29/2019 7:21 PM FERMENTOLOGIST PROCEDURE INFORMATION: Exam: XR Left Wrist Exam [...] SIGNED BY ISIDRO REYNOSO MD Kisha Murcia ICE CREAM VENDOR IMG XR PROCEDURES Final Res ult documented in this encounter Visit Diagnoses Diagnosis Acute pain of left wrist documented in this encounter Care Teams Systems Qa Analyst Relationship Specialty Start Date End Date Uriel Walker MD [address] [place] [address] PCP - General Family Medicine 02/23/19 documented as of this encounter
--- OUTSIDE RECORDS SUMMARY | 2024-11-10 05:59 | XMS_ITS | Encounter Summary ---
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 NT CONTRACTOR * Telephone Encounter - Joleen Frye MA - 10/02/2020 3:30 PM CST Pt called requesting to make an apt with Lydia. Pt states that she has had a constant cough and throwing up since last Friday and was seen in the ED. Pt states that she was tested for Covid last and her results came back negative. Pt was notified that Lydia is out of the office this week and is only doing zoom visits with her scheduled patients. Dr. Walker, Since pt is having a cough and was just tested for covid on 09/28 would you recommend that she schedule a televisit or would you recommend that she be seen here in the office? NT CONTRACTOR documented in this encounter Plan of Treatment Not on file documented as of this encounter Visit Diagnoses Not on filedocumented in this encounter Additional Health Concerns Infection Onset Date Last Indicated Resolved Time Respiratory Infection (JULIAN), contact + droplet Comment:Automatically added due to negative COVID-19 result. 09/28/2020 09/28/2020 10/12/2020 3:0 7 AM CEMENT CONTRACTOR documented as of this encounter Care Teams Junior Business Analyst Relationship Specialty Start Date End Date [place] [address] PCP - General Family Medicine 02/23/19 documented as of this encounter
--- OUTSIDE RECORDS SUMMARY | 2024-11-10 05:59 | XMS_ITS | Encounter Summary ---
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 Gender Identity Female 11/22/2020 12:52 PM ELECTRIC METER INSTALLER HELPER Sexual Orientation Straight 11/22/2020 12 :52 PM ELECTRIC METER INSTALLER HELPER documented as of this encounter Plan of Treatment Not on file documented as of this encounter Procedures Procedure Name Priority Date/Time Associated Diagnosis Comments SCAN - RADIOLOGY/IMAGING 08/18/2021 documented in this encounter Results * SCAN - RADIOLOGY/IMAGING (08/18/2021) Anatomical Region Laterality Modality Other us Provider Scanning Edited Result - Final documented in this encounter Visit Diagnoses Not on filedocumented in this encounter Care Teams Desk Top Publisher Relationship Specialty Start Date End Date Uriel Walker MD [address] [place] [address] PCP - General Family Medicine 02/23/19 documented as of this encounter
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
--- OUTSIDE RECORDS SUMMARY | 2024-11-10 05:59 | XMS_ITS | Encounter Summary ---
Author Organization [facility] Address [address] [place] [address] Care Team Providers Care Clinical Social Work Therapist Name Role Phone Uriel Walker MD Primary Care Provider +1 [phone] Encounter Details Date Type Department Care Team (Late st Contact Info) Description 01/25/2020 Telephone [facility] [address] [place] [address] Uriel Walker MD [address] [place] [address] Social History Tobacco Use Types Packs/Day Years [...] on file Legal Sex Female 1:53 AM AFTERNOON NANNY Gender Identity Female 11/22/2020 12:52 PM AFTERNOON NANNY Sexual Orientation Straight 11/22/2020 12 :52 PM AFTERNOON NANNY COVID-19 Exposure Response Date Recorded In the last month, have you been in contact with someone who was confirmed or suspected to have Coronavirus / COVID-19? No / Unsure 01/25/2020 10:54 AM CDT documented as of this encounter Miscellaneous Notes * Telephone Encounter - Uriel Walker MD - 01/25/2020 1:14 PM CDT The patient has been informed that the visit may not be secure and acknowledged the information. Called pateint. Stomach ache intermittetnly and this has resolved. Patient with intermittent cough andTm of 99.2 and/or 99.3. patient with frontal headache. Patinet is having some runny nose. Patinet with clear rhinorrhea. Patinet with episode of nausea and emesis last week. Patient denies any recent trips/trave. Patient notes bilateral ear pain and pressure. PMHx reviewed. No hx of asthma. Patinet some intermittent cough awaking patient at night. Reviewed red flag s/s. Monitor klresponse. Reviewed recommendations from [employer] to not go to work with even mild respiraotry symptoms. No indication for covid testing at the presnet time. She will reach back out to us should symptoms worsen. SHe will also fax us number to send note for work for 7 days. SHe works at [employer]. * Telephone Encounter - Domonique Rosales - 01/25/2020 10:56 AM CDT Brandie called stating that she has the following symptoms: Fever x 1 week Cough x 1 week Sore throat x 1 week Stomach pain x 1 week She states that she was seen at [facility] last week for the above reasons. She was [id number] benzonatate, 10mg loratadine and a nasal spray and diagnosed with a viral infection. She says that she is feeling worse and wants to know if there is anything else that she can be given to help or if she needs to be seen in our office. Pharmacy [facility] [phone] documented in this encounter Plan of Treatment Not on file documented as of this encounter Visit Diagnoses Not on filedocumented in this encounter Care Teams Clinical Social Work Therapist Relationship Specialty Start Date End Date Uriel Walker MD [address] [place] [address] PCP - General Family Medicine 02/23/19 documented as of this encounter
--- OUTSIDE RECORDS SUMMARY | 2024-11-10 05:59 | XMS_ITS | Encounter Summary ---
Author Organization [facility] Healthcare Address [address] [place] [address] Care Team Providers Care Receivable Clerk Name Role Phone Uriel Walker MD Primary Care Provider [phone] [phone] Encounter Details Date Type Department Care Team (Latest Contact Info) Description 11/24/2019 2:59 PM PROCESS ENG - 11/24/2019 3:26 PM PROCESS ENG Hospital Encounter [facility] Discharge Disposition: Discharge to home or self [...] on file Legal Sex Female 1:53 AM PROCESS ENG Gender Identity Female 11/22/2020 12:52 PM PROCESS ENG Sexual Orientation Straight 11/22/2020 12 :52 PM PROCESS ENG documented as of this encounter Medications at [...] on filedocumented in this encounter Care Teams Receivable Clerk Relationship Specialty Start Date End Date Uriel Walker MD [address] [place] [address] PCP - General Family Medicine 02/23/19 documented as of this encounter
--- OUTSIDE RECORDS SUMMARY | 2024-11-10 05:59 | XMS_ITS | Encounter Summary ---
Author Organization [facility] Medical [facility] Address [address] [place] [address] Care Team Providers Care Reconciling Clerk Name Role Phone Uriel Walker MD Primary Care Provider [phone] [phone] Reason for Visit * Reason Onset Date Comments Lab Orders 02/21/2020 Lab Results Letter 02/21/2020 Encounter Details Date Type Department Care Team (Late st Contact Info) Description 02/21/2020 Telephone [facility] [address] [place] [address] Uriel Walker MD [address] [place] [address] Lab Orders; Lab Results Letter Social History Tobacco Use Types Packs/Day Years [...] on file Legal Sex Female 1:53 AM ASSAYER Gender Identity Female 11/22/2020 12:52 PM ASSAYER Sexual Orientation Straight 11/22/2020 12 :52 PM ASSAYER COVID-19 Exposure Response Date Recorded In the last month, have you been in contact with someone who was confirmed or suspected to have Coronavirus / COVID-19? No / Unsure 01/25/2020 10:54 AM CDT documented as of this encounter Miscellaneous Notes * Telephone Encounter - Barbara Quahc MA - 02/21/2020 5:12 PM CDT Lab orders mailed to patient, highlighted note to repeat in 3 months and to be fasting. Included Lab Results Letter. Thank you, Barbara documented in this encounter Plan of Treatment Not on file documented as of this encounter Visit Diagnoses Not on filedocumented in this encounter Care Teams Reconciling Clerk Relationship Specialty Start Date End [place] [address] PCP - General Family Medicine 02/23/19 documented as of this encounter
--- OUTSIDE RECORDS SUMMARY | 2024-11-10 05:59 | XMS_ITS | Encounter Summary ---
Author Organization [facility] Medical [facility] Address [address] [place] [address] Care Team Providers Care Color Weigher Name Role Phone Uriel Walker MD Primary Care Provider [phone] [phone] Encounter Details Date Type Department Care Team (Late st Contact Info) Description 01/25/2020 Orders Only [facility] [address] [place] [address] Uriel Walker MD [address] [place] [address] Social History Tobacco Use Types Packs/Day Years [...] file Legal Sex Female 1:53 AM SUPERVISOR MENDING Gender Identity Female 11/22/2020 12:52 PM SUPERVISOR MENDING Sexual Orientation Straight 11/22/2020 12 :52 PM SUPERVISOR MENDING COVID-19 Exposure Response Date Recorded In the last month, have you been in contact with someone who was confirmed or suspected to have Coronavirus / COVID-19? No / Unsure 01/25/2020 10:54 AM CDT documented as of this encounter Ordered Prescriptions Prescription Sig Dispense Quantity Refills Last Filled Start Date End Date azithromycin (ZITHROMAX) 250 mg tablet Take 2 tabs (500 mg) by mouth today, than 1 daily for 4 days. 6 tablet 01/25/2020 01/30/2020 azithromycin (ZITHROMAX) 250 mg tablet Take 2 tabs (500 mg) by mouth today, than 1 daily for 4 days. 6 tablet 01/25/2020 01/25/2020 documented in this encounter Plan of Treatment Not on file documented as of this encounter Visit Diagnoses Not on filedocumented in this encounter Discontinued Medications Medication Sig Discontinue Reason Start Date End Da te azithromycin (ZITHROMAX) 250 mg tablet Take 2 tabs (500 mg) by mouth today, than 1 daily for 4 days. Alternate therapy 01/25/2020 01/25/2020 documented as of this encounter Care Teams Color Weigher Relationship Specialty Start Date End Date Uriel Walker MD [address] [place] [address] PCP - General Family Medicine 02/23/19 documented as of this encounter
--- OUTSIDE RECORDS SUMMARY | 2024-11-10 05:59 | XMS_ITS | Encounter Summary ---
Author Organization [facility] Facility Care Team Providers Care Lands Resource Manager Name Role Phone Uriel Walker MD Primary Care Provider [phone] [phone] Encounter Details Date Type Department Care Team (Latest Contact Info) Description 11/09/2019 Travel Social History Tobacco Use Types Packs/Day [...] on file Legal Sex Female 1:53 AM CHIEF PROCUREMENT OFFICER Gender Identity Female 11/22/2020 12:52 PM CHIEF PROCUREMENT OFFICER Sexual Orientation Straight 11/22/2020 12 :52 PM CHIEF PROCUREMENT OFFICER documented as of this encounter Plan of Treatment Not on file documented as of this encounter Visit Diagnoses Not on filedocumented in this encounter Care Teams Lands Resource Manager Relationship Specialty Start Date End Date [place] [address] PCP - General Family Medicine 02/23/19 documented as of this encounter
--- OUTSIDE RECORDS SUMMARY | 2024-11-10 05:59 | XMS_ITS | Encounter Summary ---
Author Organization [facility] Healthcare Address [address] [place] [address] Care Team Providers Care Atm Technician Name Role Phone Uriel Walker MD Primary Care Provider [phone] [phone] Encounter Details Date Type Department Care Team (Latest Contact Info) Description 09/27/2020 10:22 PM CERTIFIED RETINAL ANGIOGRAPHER - 09/27/2020 11:59 PM CERTIFIED RETINAL ANGIOGRAPHER Hospital Encounter [facility] [address] [place] [address] Mary Rodriguez MD [address] [place] [address] Discharge Disposition: Discharge to home or self [...] on file Legal Sex Female 1:53 AM CERTIFIED RETINAL ANGIOGRAPHER Gender Identity Female 11/22/2020 12:52 PM CERTIFIED RETINAL ANGIOGRAPHER Sexual Orientation Straight 11/22/2020 12 :52 PM CERTIFIED RETINAL ANGIOGRAPHER documented as of this encounter Medications at [...] Diagnosis Comments XR CHEST 1 VIEW ED 09/27/2020 10:58 PM CERTIFIED RETINAL ANGIOGRAPHER documented in this encounter Results * XR Chest 1 Vw (09/27/2020 10:58 PM CERTIFIED RETINAL ANGIOGRAPHER) Anatomical Region Laterality Modality Body, Chest N/A Computed Radiogr aphy 09/27/2020 10:4 9 PM CERTIFIED RETINAL ANGIOGRAPHER Impressions 09/27/2020 11:10 PM CERTIFIED RETINAL ANGIOGRAPHER ?? No radiographic evidence of acute cardiopulmonary process. THIS IS AN ELECTRONICALLY VERIFIED FINAL REPORT 09/27/2020 11:07 PM - Electronically signed by Fredy Rooney M.D. RT: RT D: ??09/27/2020 11:07 PM T: ??09/27/2020 11:07 PM Report ID: [id number] Reading Location: ??[id number] Narrative 09/27/2020 11:10 PM CERTIFIED RETINAL ANGIOGRAPHER [facility] ?Imaging Result Name: BRANDIE TORRES ? Ordering Phys: MARY RODRIGUEZ Age: 19 ?Date of : 2000 ? Accession Number: [id number] Date of Service: 09/27/2020 ??Gender: F EXAM [...] Procedure Note Fredy Rooney MD - 09/27/2020 [facility] Imaging Result Name: BRANDIE TORRES Ordering Phys: MARY RODRIGUEZ Age: 19 Date of : 2000 Accession Number: [id number] Date of Service: 09/27/2020 Gender: F EXAM [...] Fredy Rooney M.D. RT: RT Report ID: [id number] Reading Location: [place] [address] Kalli More MD IMG XR PROCEDURES Final Result documented in this encounter Visit Diagnoses Not on filedocumented in this encounter Care Teams Atm Technician Relationship Specialty Start Date End [place] [address] PCP - General Family Medicine 02/23/19 documented as of this encounter
--- OUTSIDE RECORDS SUMMARY | 2024-11-10 05:59 | XMS_ITS | Encounter Summary ---
Author Organization [facility] Medical [facility] Address [address] [place] [address] Care Team Providers Care Washer Carcass Name Role Phone Uriel Walker MD Primary Care Provider [phone] [phone] Reason for Referral * Diagnostic Imaging (Routine) - Closed Specialty Diagnoses / Procedures Referred By Contac t Referred To Contact Diagnoses Increased endometrial stripe thickness Fluid in endometrial cavity Procedures US Transvaginal Lydia Copeland NP Phone: tel: fax: External Order Referral ID Status Reason Start Date Expiration Date Visits Re quested Visits Authorized [id number] Closed 06/26/2020 07/26/2021 1 1 Encounter Details Date Type Department Care Team (Late st Contact Info) Description 06/26/2020 Telephone [facility] [address] [place] [address] [place] [address] [facility] [address] [place] [address] Social History Tobacco Use Types Packs/Day Years [...] on file Legal Sex Female 1:53 AM REGULATORY COMPLIANCE ENGINEER Gender Identity Female 11/22/2020 12:52 PM REGULATORY COMPLIANCE ENGINEER Sexual Orientation Straight 11/22/2020 12 :52 PM REGULATORY COMPLIANCE ENGINEER documented as of this encounter Miscellaneous Notes * Telephone Encounter - Lydia Copeland NP - 06/27/2020 3:01 PM CDT Thanks for the update * Telephone Encounter - Joleen Frye MA - 06/27/2020 2:27 PM CDT Pt called and stated that she has her US scheduled at [facility] for 10 am on 06/30. RIYA Freeman. * Telephone Encounter - Lydia Copeland NP - 06/26/2020 5:37 PM CDT [facility] [place] in radiology: Appendix fine. Notes endometrial stripe thickened w/possible fluid in endometrial canal. Recommended pelvic US. Centralized [phone] Spoke w/Brandie while there in radiology: will call scheduling to set up pelvic US. Faxed us order to [facility] documented in this encounter Plan of Treatment Not on file documented as of this encounter Results * US Transvaginal (06/30/2020) Anatomical Region Laterality Modality Pelvis N/A Ultrasound us Lydia Copeland NP IMG US PROCEDURES Edited Result - Final documented in this encounter Visit Diagnoses Diagnosis Increased endometrial stripe thickness- Primary Nonspecific (abnormal) findings on radiological and other examination of genitourinary organs Fluid in endometrial cavity documented in this encounter Care Teams Washer Carcass Relationship Specialty Start Date End Date Uriel Walker MD [address] [place] [address] PCP - General Family Medicine 02/23/19 documented as of this encounter
--- OUTSIDE RECORDS SUMMARY | 2024-11-10 05:59 | XMS_ITS | Encounter Summary ---
Author Organization [facility] Address [address] [place] [address] Care Team Providers Care Jig And Fixture Builder Apprentice Name Role Phone Uriel Walker MD Primary Care Provider [phone] [phone] Encounter Details Date Type Department Care Team (Late st Contact Info) Description 01/25/2020 Orders Only [facility] [place] [address] [place] [address] Uriel Walker MD [address] [place] [address] Social History Tobacco Use Types Packs/Day Years [...] on file Legal Sex Female 1:53 AM COST CONTROL SUPERVISOR Gender Identity Female 11/22/2020 12:52 PM COST CONTROL SUPERVISOR Sexual Orientation Straight 11/22/2020 12 :52 PM COST CONTROL SUPERVISOR COVID-19 Exposure Response Date Recorded In the last month, have you been in contact with someone who was confirmed or suspected to have Coronavirus / COVID-19? No / Unsure 01/25/2020 10:54 AM CDT documented as of this encounter Plan of Treatment Not on file documented as of this encounter Visit Diagnoses Not on filedocumented in this encounter Care Teams Jig And Fixture Builder Apprentice Relationship Specialty Start Date End Date Uriel Walker MD [address] [place] [address] PCP - General Family Medicine 02/23/19 documented as of this encounter
--- OUTSIDE RECORDS SUMMARY | 2024-11-10 05:59 | XMS_ITS | Encounter Summary ---
Author Organization [facility] Facility Care Team Providers Care Combination Man Name Role Phone Uriel Walker MD Primary Care Provider [phone] [phone] Encounter Details Date Type Department Care Team (Latest Contact Info) Description 01/25/2020 Travel Social History Tobacco Use Types Packs/Day [...] on file Legal Sex Female 1:53 AM COATING TECHNICIAN Gender Identity Female 11/22/2020 12:52 PM COATING TECHNICIAN Sexual Orientation Straight 11/22/2020 12 :52 PM COATING TECHNICIAN COVID-19 Exposure Response Date Recorded In the last month, have you been in contact with someone who was confirmed or suspected to have Coronavirus / COVID-19? No / Unsure 01/25/2020 10:54 AM CDT documented as of this encounter Plan of Treatment Not on file documented as of this encounter Visit Diagnoses Not on filedocumented in this encounter Care Teams Combination Man Relationship Specialty Start Date End Date [place] [address] PCP - General Family Medicine 02/23/19 documented as of this encounter
--- OUTSIDE RECORDS SUMMARY | 2024-11-10 06:00 | XMS_ITS | Encounter Summary ---
Author Organization [facility] Medical [facility] Address [address] [place] [address] Care Team Providers Care Dynamicist Name Role Phone Uriel Walker MD Primary Care Provider [phone] [phone] Reason for Visit * Reason Comments School Physical Encounter Details Date Type Department Care Team (Late st Contact Info) Description 07/13/2019 3:45 PM CDT Office Visit [facility] [address] [address] Lydia Copeland, [facility] [address] [facility] [address] [place] [address] School physical exam (Primary Dx); PPD screening test Social History Tobacco Use Types Packs/Day Years Used Date Smoking Tobacco: Never Smokeless Tobacco: Never Alcohol Use Standard Drinks/Week Comments Never 0 (1 standard drink = 0.6 oz pur e alcohol) AUDIT-C Answer Date Recorded Frequency of Alcohol Consumption Never 07/13/2019 Average Number of Drinks Not on file 019 Frequency of Binge Drinking Not on file 07/04 PHQ-2 Answer Date Recorded PHQ-2 Score 1 07/13/2019 Comments No Sex and Gender Information Value Date Recorded Sex Assigned at Not on file Legal Sex Female 1:53 AM MICROWAVE REMOTE SENSING SCIENTIST Gender Identity Female 11/22/2020 12:52 PM MICROWAVE REMOTE SENSING SCIENTIST Sexual Orientation Straight 11/22/2020 12 :52 PM MICROWAVE REMOTE SENSING SCIENTIST documented as of this encounter Last Filed Vital Signs Vital Sign Reading Time Taken Comments Blood Pressure 114/78 07/13/2019 4:06 PM CDT Pulse 90 07/13/2019 4:06 PM CDT Temperature 37 ??C (98.6 ??F) 07/13/2019 4:06 PM CDT Respiratory Rate 18 07/13/2019 4:06 PM CDT Oxygen Saturation 98% 07/13/2019 4:06 PM CDT Inhaled Oxygen Concentration - - Weight 133.6 kg (294 lb 9.6 oz) 07/13/2019 4:06 PM CDT Height 167.6 cm (5' 6 ) 07/13/2019 4:06 PM CDT Body Mass Index 47.55 07/13/2019 4:06 PM CDT Body Mass Index Percentile 99.93% 07/13/2019 4:0 6 PM CDT Growth Chart: [facility] (Girls, 2- 20 Years) documented in this encounter Progress Notes * Lydia Copeland, [facility] - 07/13/2019 3:45 PM CDT Images from the original note were not included. Anticipatory guidelines for teenagers: -healthy dietary habits. [...] with strangers) -strategies to deal with bullying. [facility] Chief Complaint. Chief Complaint Patient presents with ??? School Physical HPI. Patient is a 18 y.o. female [employer] senior Also going to vocational school in [place] for [employer]. Will be completed during this school year. Needing flu vaccine & PPD. MOP (Brandi Berger's her mother) given verbal consent over phone for injections & PPD. No physical activity/does not exercise. Does drive. Does not smoke nor drink ETOH. Past Medical History: Diagnosis Date ??? Fatty liver disease, nonalcoholic 05/03/2016 ??? Seasonal allergies Past Surgical History: Procedure Laterality Date ??? TONSILECTOMY, ADENOIDECTOMY, BILATERAL MYRINGOTOMY AND TUBES ??? TONSILLECTOMY 11/03/2016 Tonsillectomy HOME MEDICATIONS : blood glucose diagnostic (CONTOUR NEXT TEST STRIPS) strip lancets (MICROLET LANCET) misc dicyclomine (BENTYL) 20 mg tablet ondansetron ODT [...] Systems: Review of Systems Constitutional: Negative for chills, fatigue and fever. HENT: Negative. Respiratory: Negative. Negative for cough, shortness of breath and wheezing. Cardiovascular: Negative. Negative for chest pain, palpitations and leg swelling. Gastrointestinal: Negative for constipation, diarrhea, nausea and vomiting. Genitourinary: Negative for dysuria, genital sores, menstrual problem, urgency and vaginal discharge. Irregular menses. Last menses completed 2 days ago. Did not have June menses but did at beginning of May. Has always been irregular. NOT sexually active. Musculoskeletal: Negative. Allergic/Immunologic: Negative for environmental allergies. Neurological: Negative. Negative for dizziness, light-headedness and numbness. Psychiatric/Behavioral: Negative. BP 114/78 (BP Location: Left arm, Patient Position: Sitting) Pulse 90 Temp 37 ??C (98.6 ??F) (Oral) Resp 18 Ht 167.6 cm (5' 6 ) Wt 133.6 kg (294 lb 9.6 oz) SpO2 98% BMI 47.55 kg/m?? Physical Exam: Physical Exam Constitutional: She is oriented to person, place, and time. She appears well- developed and well-nourished. Morbid obesity HENT: Head: Normocephalic and atraumatic. Eyes: Pupils are equal, round, and reactive to light. Conjunctivae and EOM are normal. Neck: Normal range of motion. Neck supple. No tracheal deviation present. No thyromegaly present. Cardiovascular: Normal rate, regular rhythm and normal heart sounds. Exam reveals no gallop and no friction rub. No murmur heard. Pulmonary/Chest: Effort normal and breath sounds normal. Abdominal: Soft. Bowel sounds are normal. She exhibits no distension. There is no tenderness. Musculoskeletal: Normal range of motion. Lymphadenopathy: She has no cervical adenopathy. Neurological: She is alert and oriented to person, place, and time. Skin: Skin is warm and dry. Psychiatric: She has a normal mood and affect. Her behavior is normal. Judgment and thought contentnormal. Nursing note and vitals reviewed. Assessment & Plan: Diagnoses and all orders for this visit: School physical exam (Primary) Assessment & Plan: Anticipatory guidelines for teenagers: -healthy dietary habits. [...] to deal with bullying. Paperwork completed. Will pick pulling machine tender when she comes to have PPD read and to receive influenzavaccine. PPD screening test Assessment & Plan: PPD placed today. Will return 07/15 to have read. Orders: - PPD Test BMI Follow-up includes: exercise counseling and education provided. Body mass index is 47.55 kg/m??. Lydia Copeland NP documented in this encounter Miscellaneous Notes * Assessment & Plan Note - Lydia Copeland NP - 07/13/2019 5:45 PM CDT Associated Problem(s): PPD screening test (Resolved 02/16/2020) PPD placed today. Will return 07/15 to have read. * Assessment & Plan Note - Lydia Copeland NP - 07/13/2019 5:44 PM CDT Associated Problem(s): School physical exam (Resolved 02/17/2020) Anticipatory guidelines for teenagers: -healthy dietary habits. [...] to deal with bullying. Paperwork completed. Will pick pulling machine tender when she comes to have PPD read and to receive influenzavaccine. documented in this encounter Plan of Treatment Not on file documented as of this encounter Procedures Procedure Name Priority Date/Time Associated Diagnosis Comments PPD TEST Routine 07/15/2019 3:45 PM CDT PPD screening test documented in this encounter Results * PPD Test (07/15/2019 3:45 PM CDT) TB Skin Test Negative Negative Induration 0 mm Other 07/15/2019 3:45 PM CDT Lydia Copeland [facility] POINT OF CARE TEST ORDERA BLES Final Result documented in this encounter Visit Diagnoses Diagnosis School physical exam- Primary Health examination of defined subpopulation PPD screening test Screening examination for pulmonary tuberculosis documented in this encounter Care Teams Dynamicist Relationship Specialty Start Date End Date [place] [address] PCP - General Family Medicine 02/23/19 documented as of this encounter
--- OUTSIDE RECORDS SUMMARY | 2024-11-10 06:00 | XMS_ITS | Encounter Summary ---
Author Organization [facility] Address [address] [place] [address] Care Team Providers Care Editor Department Name Role Phone Christine Peterson MD Primary Care Pro vider Encounter Details Date Type Department Care Team (Late st Contact Info) Description 06/10/2018 12:20 PM CDT Lab [address] Christine Peterson MD [address] [place] [address] [address] Shilpi Grey NP [address] [place] [address] DR SHARON Souza [address] [address] Discharge Disposition: Discharge to home or self care Social History Tobacco Use Types Packs/Day Years Used Date Smoking Tobacco: Never Smokeless Tobacco: Never Comments Unknown Sex and Gender Information Value Date Recorded Sex Assigned at Not on file Legal Sex Female 1:53 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 Gender Identity Female 11/22/2020 12:52 PM TOOL ENGINEER Sexual Orientation Straight 11/22/2020 12 :52 PM TOOL ENGINEER documented as of this encounter Discharge Disposition Disposition Code Departure Means Destination Discharge to home or self care documented in this encounter Plan of Treatment Not on file documented as of this encounter Procedures Procedure Name Priority Date/Time Associated Diagnosis Comments PROLACTIN Routine 06/10/2018 12:18 PM CDT ALT Routine 06/10/2018 12:18 PM CDT AST Routine 06/10/2018 12:18 PM CDT TSH Routine 06/10/2018 12:18 PM CDT T4, FREE Routine 06/10/2018 12:18 PM CDT HEMOGLOBIN A1C Routine 06/10/2018 12:18 PM CDT LUTEINIZING HORMONE (LH) Routine 06/10/2018 12:18 PM CDT FOLLICLE STIMULATING HORMONE Routine 06/10/2018 12:18 PM CDT LIPID PANEL Routine 06/10/2018 12:18 PM CDT documented in this encounter Results * LH (06/10/2018 12:18 PM CDT) LH 3 mIUnits/mL CONNIE Baum ([place]) Comment: Interpretive Data Reference Interval Female ??<10 years ? 1 - 9 ?? mIU/ml ??Mid-Follicular ?2 - 11 ??mIU/ml ??Mid-Cycle ?19 - 100 mIU/ml ??Mid-Luteal ?1 - 13 ??mIU/ml ??Post Menopausal ??11 - 60 ??mIU/ml -- Male ?1 - 9 ?? mIU/ml Current interpretive data was last revised 2016 Testing performed by: [facility], [address] [place] [address], [place]., [address] Blood specimen (specimen) 06/10/2018 12:18 PM CDT 06/10/2018 6:37 PM CDT Cathy ALSTON ([place]) - 06/10/2018 7:48 PM CDT us Shilpi Grey [employer] LAB BLOOD ORDERABLES Final Res ult Performing Organization Address City/State/[facility] de Phone Number [facility] ([place]) 1 [facility] [place] [address] * Follicle stimulating hormone (06/10/2018 12:18 PM CDT) FSH 5.6 mIUnits/mL CONNIE Baum ([place]) Comment: Interpretive Data Reference Interval Female ??<10 years ? 1 - 19 ??mIU/ml ??Mid-Follicular ?4 - 9 ?? mIU/ml ??Mid-Cycle ? 4 - 23 ??mIU/ml ??Mid-Luteal ?2 - 5 ?? mIU/ml ??Post Menopausal ??16 - 114 mIU/ml -- Male ?1 - 19 ??mIU/ml Current interpretive data was last revised on 2016 Testing performed by: [address], [address] Blood specimen (specimen) 06/10/2018 12:18 PM CDT 06/10/2018 6:37 PM CDT Narrative [facility] ([place]) - 06/10/2018 7:47 PM CDT Shilpi Grey [employer] LAB BLOOD ORDERABLES Final Res ult Performing Organization Address [facility] Co de Phone Number [facility] ([place]) 1 [facility] [place] [address] * Prolactin (06/10/2018 12:18 PM CDT) Prolactin 6 3 - 27 ng/mL [facility] ([place]) Comment:Testing performed by : [address] [address] Blood specimen (specimen) 06/10/2018 12:18 PM CDT 06/10/2018 6:37 PM CDT Narrative [facility] ([place]) - 06/10/2018 7:24 PM CDT Shilpi Grey [employer] LAB BLOOD ORDERABLES Final Res ult Performing Organization Address City/[facility]/ZIP Co de Phone Number CONNIE ALSTON ([place]) 1 [facility] [place] [address] * TSH (06/10/2018 12:18 PM CDT) Thyroid Stimulating Hormone 1.18 0.30 - 5.00 mcIUnit/mL CONNIE LASTON ([place]) Blood specimen (specimen) 06/10/2018 12:18 PM CDT 06/10/2018 2:42 PM CDT Narrative CONNIE ALSTON ([place]) - 06/10/2018 3:27 PM CDT Shilpi Grey [employer] LAB BLOOD ORDERABLES Final Res ult Performing Organization Address [facility] Co de Phone Number CONNIE ALSTON ([place]) 1 [facility] [place] [address] * T4, free (06/10/2018 12:18 PM CDT) Free T4 1.2 0.8 - 1.8 ng/dL CONNIE ALSTON ([place]) Blood specimen (specimen) 06/10/2018 12:18 PM CDT 06/10/2018 2:42 PM CDT Narrative CONNIE ALSTON ([place]) - 06/10/2018 3:27 PM CDT Shilpi Grey [employer] LAB BLOOD ORDERABLES Final Res ult Performing Organization Address City/[facility]/ZIP Co de Phone Number CONNIE ALSTON ([place]) 1 [facility] [place] [address] * (ABNORMAL) Lipid panel (06/10/2018 12:18 PM CDT) Cholesterol 138 40 - 199 mg/dL CONNIE ALSTON ([place]) Comment: Interpretive Data Desirable: ??Less than 200 mg/dl ? Borderline High: ?200 - 239 mg/dl ? High: ??Greater than ?? 239 mg/dl Current interpretive data was last revised on 2014. Triglycerides 125.0 <=150.0 mg/dL [facility] ([place]) Comment: Interpretive Data Normal: ? Less than 150 mg/dl Borderline high: ??150-199 mg/dl ?? High: ? 200-499 mg/dl ? Very high: ??Greater than or equal to 500 mg/dl Current interpretive data was last revised on 2017. HDL 39(L) 40 - 60 mg/dL [facility] ([place]) Comment: Interpretive Data Low HDL Cholesterol: ? Less than 40 mg/dl Normal HDL Cholesterol: ??40-60 mg/dl High HDL Cholesterol: ?Greater than 60 mg/dl Current interpretive data was last revised on 2014. LDL, calculated 74 mg/dL [facility] ([place]) Comment: Interpretive Data Optimal ? Less than 100 mg/dL ? Near optimal/Above optimal ??100 - 129 mg/dL ? Borderline high ? 130 - 159 mg/dL ? High ?160 - 189 mg/dL ? Very high ? Greater than or = 190 mg/dL ? LDL values are not valid when the total Triglyceride is greater than 300 mg/dL. Current interpretive data was last revised on 2014. Non-HDL Cholesterol 99 mg/dL [facility] ([place]) Comment: Interpretive Data Optimal ? Less than 130 mg/dL Low Risk ?130 - 159 mg/dL Moderate Risk ? 160 - 189 mg/dL High Risk ? Greater than or equal to 190 mg/dL Current interpretive data was last revised on 2014. Blood specimen (specimen) 06/10/2018 12:18 PM CDT 06/10/2018 2:42 PM CDT Narrative CONNIE ALSTON ([place]) - 06/10/2018 3:18 PM CDT Shilpi Grey [employer] LAB BLOOD ORDERABLES Final Res ult Performing Organization Address [facility] Co de Phone Number CONNIE ALSTON ([place]) 1 [facility] [place] [address] * AST (06/10/2018 12:18 PM CDT) AST 26 10 - 50 Units/L CONNIE ALSTON ([place]) Blood specimen (specimen) 06/10/2018 12:18 PM CDT 06/10/2018 2:42 PM CDT Narrative CONNIE ALSTON ([place]) - 06/10/2018 3:18 PM CDT Shilpi Grey [employer] LAB BLOOD ORDERABLES Final Res ult Performing Organization Address [facility] Co de Phone Number CONNIE ALSTON ([place]) 1 [facility] [place] [address] * ALT (06/10/2018 12:18 PM CDT) ALT 33 7 - 45 Units/L CONNIE ALSTON ([place]) Blood specimen (specimen) 06/10/2018 12:18 PM CDT 06/10/2018 2:42 PM CDT Narrative [facility] ([place]) - 06/10/2018 3:18 PM CDT us Shilpi Grey [employer] LAB BLOOD ORDERABLES Final Res ult Performing Organization Address City/[facility] Co de Phone Number CONNIE ALSTON ([place]) 1 [facility] [place] [address] * (ABNORMAL) Hemoglobin A1c (06/10/2018 12:18 PM CDT) Hgb A1C 6.6(H) 4.0 - 5.6 % CONNIE SAGE ([place]) Blood specimen (specimen) 06/10/2018 12:18 PM CDT 06/10/2018 2:42 PM CDT Narrative CONNIE ALSTON ([place]) - 06/10/2018 3:06 PM CDT Shilpi Grey [employer] LAB BLOOD ORDERABLES Final Res ult Performing Organization Address City/[facility] Co de Phone Number CONNIE ALSTON ([place]) 1 [facility] [place] [address] documented in this encounter Visit Diagnoses Not on filedocumented in this encounter Care Teams Editor Department Relationship Specialty Start Date End Date Christine Peterson MD PCP - General Pediatrics 07/03/17 02/22/19 documented as of this encounter
--- OUTSIDE RECORDS SUMMARY | 2024-11-10 06:00 | XMS_ITS | Encounter Summary ---
Author Organization [facility] Address [address] [place] [address] Care Team Providers Care Tenant Coordinator Name Role Phone Christine Peterson MD Primary Care Pro vider Encounter Details Date Type Department Care Team (Late st Contact Info) Description 02/01/2019 4:15 PM CDT Lab [address] Christine Peterson MD [address] [place] [address] [address] Shilpi Grey NP [address] [place] [address] DR SHARON Souza [address] [address] Discharge Disposition: Discharge to home or self care Social History Tobacco Use Types Packs/Day Years Used Date Smoking Tobacco: Never Smokeless Tobacco: Never Comments No Sex and Gender Information Value Date Recorded Sex Assigned at Not on file 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 Gender Identity Female 11/22/2020 12:52 PM MIXER OPERATOR HOT METAL Sexual Orientation Straight 11/22/2020 12 :52 PM MIXER OPERATOR HOT METAL documented as of this encounter Discharge Disposition Disposition Code Departure Means Destination Discharge to home or self care documented in this encounter Plan of Treatment Not on file documented as of this encounter Procedures Procedure Name Priority Date/Time Associated Diagnosis Comments DIFFERENTIAL AUTO Routine 02/01/2019 4:1 8 PM CDT CBC WITH AUTO DIFFERENTIAL Routine 02/01/2019 4:18 PM CDT HEMOGLOBIN A1C Routine 02/01/2019 4:18 PM CDT GAMMA GT Routine 02/01/2019 4:18 PM CDT LIPID PANEL Routine 02/01/2019 4:18 PM CDT COMPREHENSIVE METABOLIC PANEL Routine 02/01/2019 4:18 PM CDT documented in this encounter Results * (ABNORMAL) Lipid panel (02/01/2019 4:18 PM CDT) Cholesterol 145 <=199 mg/dL CONNIE ALSTON ([place]) Comment: Interpretive [...] Data was last revised on 2018. Triglycerides 120 <=129 mg/dL CONNIE NEWMAN) Comment: Interpretive Data [...] Data was last revised on 2018. HDL 39(L) >=45 mg/dL CONNIE Baum ([place]) Comment: Interpretive Data Ages < or [...] was last revised on 2018. LDL, calculated 82 <=129 mg/dL CONNIE NEWMAN) Comment: Interpretive Data [...] was last revised on 2018. Non-HDL Cholesterol 106 <=144 mg/dL [facility] ([place]) Comment: Interpretive Data [...] was last revised on 2018. Chol/HDL ratio 4 [facility] R [facility] ([place]) Blood specimen (specimen) 02/01/2019 4:18 PM CDT 02/01/2019 6:12 PM CDT Narrative [facility] ([place]) - 02/01/2019 6:37 PM CDT us Shilpi Grey SHAKE SAWYER LAB BLOOD ORDERABLES Final Res ult CONNIE ALECIA ([place]) 1 [facility] [place] [address] * Comprehensive metabolic panel (02/01/2019 4:18 PM CDT) Sodium 140 135 - 145 mmol/L [facility] ([place]) Potassium, pl 4.1 3.3 - 4.9 mmol/L [facility] ([place]) Chloride 101 100 - 114 mmol/L [facility] ([place]) CO2 26 20 - 30 mmol/L [facility] ([place]) Anion gap 13 2 - 15 mmol/L [facility] ([place]) BUN 14 9 - 18 mg/dL [facility] ([place]) Creatinine 0.58 0.40 - 1.00 mg/dL [facility] ([place]) Glucose 92 70 - 199 mg/dL [facility] ([place]) [...] interpretive data was last revised 2017. Calcium 10.1 8.5 - 10.3 mg/dL [facility] ([place]) Bilirubin, total 0.3 0.1 - 1.2 mg/dL [facility] ([place]) Protein, pl 7.4 6.5 - 8.5 g/dL [facility] ([place]) Albumin 4.1 3.2 - 5.0 g/dL [facility] ([place]) Alk phos 94 70 - 260 Units/L [facility] ([place]) ALT 20 7 - 45 Units/L [facility] ([place]) AST 20 10 - 50 Units/L [facility] ([place]) Blood specimen (specimen) 02/01/2019 4:18 PM CDT 02/01/2019 6:12 PM CDT Narrative [facility] ([place]) - 02/01/2019 6:36 PM CDT Shilpi Grey SHAKE SAWYER LAB BLOOD ORDERABLES Final Res ult [facility] ([place]) 1 [facility] [place] [address] * Gamma GT (02/01/2019 4:18 PM CDT) GGT 31 10 - 40 Units/L [facility] ([place]) Blood specimen (specimen) 02/01/2019 4:18 PM CDT 02/01/2019 6:12 PM CDT Narrative [facility] ([place]) - 02/01/2019 6:36 PM CDT Shilpi Grey SHAKE SAWYER LAB BLOOD ORDERABLES Final Res ult CONNIE ALSTON ([place]) 1 [facility] [place] [address] * (ABNORMAL) Hemoglobin A1c (02/01/2019 4:18 PM CDT) Hgb A1C 6.5(H) 4.0 - 5.6 % CONNIE A ([place]) Blood specimen (specimen) 02/01/2019 4:18 PM CDT 02/01/2019 6:12 PM CDT Narrative [facility] ([place]) - 02/01/2019 6:29 PM CDT Shilpi Grey SHAKE SAWYER LAB BLOOD ORDERABLES Final Res ult Performing Organization Address City/[facility]/ZIP Co de Phone Number CONNIE ALSTON ([place]) 1 [facility] [place] [address] * Differential, auto (02/01/2019 4:18 PM CDT) Pathologist [facility] Neutrophil abs 6.3 1.7 - 6.5 K/cumm [facility] ([place]) Imm gran abs 0.0 0.0 - 0.1 K/cumm [facility] ([place]) Lymphocyte abs 2.0 0.8 - 3.3 K/cumm [facility] ([place]) Monocyte abs 0.6 0.2 - 0.8 K/cumm [facility] ([place]) Eosinophil abs 0.0 0.0 - 0.5 K/cumm [facility] ([place]) Basophil abs 0.0 0.0 - 0.1 K/cumm [facility] ([place]) Neutrophil pct 70.5 % [facility] R [facility] ([place]) Comment: Interpretive Data Percent cell count reference ranges are not reported, since discordance with absolute values may lead to misinterpretation of CBC data. Current Interpretive Data was last revised on 2018. Imm gran pct 0.1 % [facility] ([place]) Comment: Interpretive Data Percent cell count reference ranges are not reported, since discordance with absolute values may lead to misinterpretation of CBC data. Current Interpretive Data was last revised on 2018. Lymphocyte pct 22.1 % [facility] R [facility] ([place]) Comment: Interpretive Data Percent cell count reference ranges are not reported, since discordance with absolute values may lead to misinterpretation of CBC data. Current Interpretive Data was last revised on 2018. Monocyte pct 6.5 % [facility] ([place]) Comment: Interpretive Data Percent cell count reference ranges are not reported, since discordance with absolute values may lead to misinterpretation of CBC data. Current Interpretive Data was last revised on 2018. Eosinophil pct 0.6 % [facility] ([place]) Comment: Interpretive Data Percent cell count reference ranges are not reported, since discordance with absolute values may lead to misinterpretation of CBC data. Current Interpretive Data was last revised on 2018. Basophil pct 0.2 % [facility] ([place]) Comment: Interpretive Data Percent cell count reference ranges are not reported, since discordance with absolute values may lead to misinterpretation of CBC data. Current Interpretive Data was last revised on 2018. Blood specimen (specimen) 02/01/2019 4:18 PM CDT 02/01/2019 6:12 PM CDT Narrative CONNIE ALSTON ([place]) - 02/01/2019 6:15 PM CDT us Shilpi Grey SHAKE SAWYER LAB BLOOD ORDERABLES Final Res ult CONNIE ALSTON ([place]) 1 [facility] Department [place] [address] * (ABNORMAL) CBC with auto differential (02/01/2019 4:18 PM CDT) WBC 8.9 3.8 - 9.9 K/cumm [facility] ([place]) Hgb 11.1(L) 11.9 - 15.5 g/dL [facility] ([place]) Hct 36.8 35.6 - 45.5 % [facility] ([place]) Plt 424(H) 150 - 400 K/cumm [facility] ([place]) MPV 8.7(L) 9.1 - 12.3 fL [facility] ([place]) RBC 4.86 3.90 - 5.20 M/cumm [facility] ([place]) MCV 75.7(L) 81.3 - 96.4 fL [facility] ([place]) MCH 22.8(L) 27.1 - 33.3 pg [facility] ([place]) MCHC 30.2(L) 32.3 - 35.7 g/dL [facility] ([place]) RDW CV 14.1 11.1 - 14.9 % [facility] ([place]) NRBC abs 0.00 0.00 - 0.01 K/cumm [facility] Blood specimen (specimen) 02/01/2019 4:18 PM CDT 02/01/2019 6:12 PM CDT Narrative [facility] ([place]) - 02/01/2019 6:15 PM CDT us Shilpi Grey SHAKE SAWYER LAB BLOOD ORDERABLES Final Res ult [facility] ([place]) 1 [facility] [place] [address] documented in this encounter Visit Diagnoses Not on filedocumented in this encounter Care Teams Tenant Coordinator Relationship Specialty Start Date End Date Christine Peterson MD PCP - General Pediatrics 07/03/17 02/22/19 documented as of this encounter
--- OUTSIDE RECORDS SUMMARY | 2024-11-10 06:00 | XMS_ITS | Encounter Summary ---
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
--- OUTSIDE RECORDS SUMMARY | 2024-11-10 06:00 | XMS_ITS | Encounter Summary ---
Author Organization [facility] Healthcare Address [address] [place] [address] Care Team Providers Care Tool Pusher Name Role Phone Unavailable Primary Care Provider Unavailabl e Encounter Details Date Type Department Care Team (Late st Contact Info) Description 01/05/2016 4:05 PM CONCRETE FLOATER - 01/05/2016 7:59 PM CONCRETE FLOATER Hospital Encounter [facility] Johnie Qiu MD [address] [place] [address] Syncope and collapse Social History Tobacco Use Types Packs/Day Years Used Date Smoking Tobacco: Never Assessed Comments Unknown Sex and Gender Information Value Date Recorded Sex Assigned at Not on file Legal Sex Female 1:53 AM CONCRETE FLOATER Gender Identity Female 11/22/2020 12:52 PM CONCRETE FLOATER Sexual Orientation Straight 11/22/2020 12 :52 PM CONCRETE FLOATER documented as of this encounter Plan of Treatment Not on file documented as of this encounter Procedures Procedure Name Priority Date/Time Associated Diagnosis Comments XR CHEST PA LATERAL 2 VIEWS Routine 01/05/2016 7:27 PM CONCRETE FLOATER SERUM THYROID-STIMULATING HORMONE (TSH) Routine 01/05/2016 7:07 PM CONCRETE FLOATER SERUM CHORIONIC GONADOTROPIN (HCG), QUANTITATIVE Routine 01/05/2016 7:07 PM CONCRETE FLOATER PLASMA COMPREHENSIVE METABOLIC PANEL Routine 01/05/2016 7:07 PM CONCRETE FLOATER BLOOD CELL COUNT (CBC), MORPHOLOGIC EXAM Routine 01/05/2016 7:07 PM CONCRETE FLOATER BLOOD CELL MORPHOLOGIC EXAM Routine 01/05/2016 7:07 PM CONCRETE FLOATER URINE (AEROBIC) CULTURE, CDR Routine 01/05/2016 6:58 PM CONCRETE FLOATER URINE MICROSCOPY Routine 01/05/2016 6:58 PM CONCRETE FLOATER URINALYSIS Routine 01/05/2016 6:58 PM CONCRETE FLOATER ELECTROCARDIOGRAPHY (ECG) 01/05/2016 DISCHARGE LABORATORY CUMULATIVE REPORT 01/05/2016 documented in this encounter Results * XR Chest Pa Lateral 2 Vw (01/05/2016 7:27 PM CONCRETE FLOATER) Anatomical Region Laterality Modality Body, Chest N/A Radiographic Zaina ging 01/05/2016 7:27 PM CONCRETE FLOATER Narrative 01/07/2016 11:39 AM CONCRETE FLOATER XR Chest 2 Views ?[id number] ??Acc#: ??[id number] DATE OF EXAM: ??Jan ??2015 CLINICAL HISTORY: Cough. ??History of strep. RESULT: PA and lateral projections obtained. ??No prior study available for comparison. ??Lower abdomen and pelvis shielded. ??Lung volumes are on the small side, with some crowding. ??No infiltrate or effusion identified. Cardiac size and pulmonary vascularity are within the range of normal. IMPRESSION: NO ACUTE PULMONARY DISEASE. Interpreting Physician: ??JUANCHO TAM M.D. ??Read on: ??Mar ??4 2015 10:48P Transcribed by: ??mrr ??On: Jan ??5 2016 ??8:20A Approved Electronically by: ??JUANCHO TAM M.D. ??on: ??Mar ??6 2015 11:39A Attending: ??JOHNIE SON Requesting: ??JOHNIE SON Requesting Fax: ??-- Attending Fax: ??-- Attending ID: ??[id number] Requesting ID: ??[id number] Report To 1 ID: ??[id number] Report To 1 Name: ??JOHNIE SON Report To 1 FAX: ??-- NextGen Order #: Procedure Note Provider, MD Rigo - 03/09/2017 XR Chest 2 Views [id number] Acc#: [id number] DATE OF EXAM: Jan 05 2016 CLINICAL HISTORY: Cough. History of strep. RESULT: PA and lateral projections obtained. No prior study available forcomparison. Lower abdomen and pelvis shielded. Lung volumes are on thesmall side, with some crowding. No infiltrate or effusion identified.Cardiac size and pulmonary vascularity are within the range of normal. IMPRESSION: NO ACUTE PULMONARY DISEASE. Interpreting Physician: JUANCHO TAM M.D. Read on: Jan 05 2016 10:48P Transcribed by: alessandro On: Jan 06 2016 8:20A Approved Electronically by: JUANCHO TAM M.D. on: Jan 07 2016 11:39A Attending: JOHNIE SON Requesting: JOHNIE SON Requesting Fax: -- Attending Fax: -- Attending ID: [id number] Requesting ID: [id number] Report To 1 ID: [id number] Report To 1 Name: JOHNIE SON Report To 1 FAX: -- NextGen Order #: Historical Provider IMG XR PROCEDURES Final R esult * Serum thyroid-stimulating hormone (TSH) (01/05/2016 7:07 PM CONCRETE FLOATER) Pathologist [facility] TSH 3.01 0.30 - 5.00 mcIUnits/ml HISTORICAL RESULTS Serum 01/05/2016 7:07 PM CONCRETE FLOATER Historical Provider LAB BLOOD ORDERABLES Jessenia l Result HISTORICAL RESULTS * (ABNORMAL) Plasma comprehensive metabolic panel (01/05/2016 7:07 PM CONCRETE FLOATER) Pathologist [facility] Sodium 141 135 - 145 mmol/L HISTORICAL RESULTS K, pl 4.0 3.5 - 5.1 mmol/L HISTORICAL RESULTS Chloride 100 97 - 110 mmol/L HISTORICAL RESULTS CO2 28 20 - 28 mmol/L HISTORICAL RESULTS A. gap 17(H) 8 - 16 mmol/L HISTORICAL RESULTS Glucose 88 70 - 199 mg/dl HISTORICAL RESULTS Comment: Interpretive Data Note:The glucose is assumed non fasting Fastin-99 mg/dL Random: ??70-199 mg/dL Either a fasting glucose > 126 mg/dL or a random glucose > 200 mg/dL plus symptoms is diagnostic of diabetes when confirmed on another day. Fasting values > 100 mg/dL but < 125 mg/dL are diagnostic of impaired fasting glucose. Current interpretive data was last revised on 2014. BUN 11.0 9.0 - 18.0 mg/dl HISTORICAL RESULTS Creatinine 0.50 0.40 - 1.00 mg/dl HISTORICAL RESULTS BUN/creat ratio 22(H) 10 - 20 HIST ORICAL RESULTS Calcium 9.6 8.6 - 10.2 mg/dl HISTORICAL RESULTS Protein, sr 7.8 6.0 - 8.4 g/dl HISTORICAL RESULTS Alb 4.3 3.2 - 5.0 g/dl HISTORICAL RESULTS Alb/glob ratio 1.2 1.1 - 1.8 ratio HISTORICAL RESULTS Alk phos 109(L) 130 - 550 Units/L HISTORICAL RESULTS ALT 19 5 - 45 Units/L HISTORICAL RESULTS AST 14 10 - 40 Units/L HISTORICAL RESULTS Bilirubin <0.2 <=1.2 mg/dl HISTORICAL RESULTS Plasma 01/05/2016 7:07 PM CONCRETE FLOATER us Historical Provider LAB BLOOD ORDERABLES Jessenia eldridge Result HISTORICAL RESULTS * Serum chorionic gonadotropin (HCG), quantitative (01/05/2016 7:07 PM CONCRETE FLOATER) Pathologist [facility] HCG, quant <5.0 0.0 - 5.0 IUnits/L HISTORICAL RESULTS Comment: Interpretive Data Negative: ? <5 mIU/mL ? Borderline: ??6-25 mIU/mL Positive: ? >25 mIU/mL Approx Gest Age ? Approx HCG Concentration 3 - 4 Weeks ?9 - 130 4 - 5 Weeks ?75 - 2600 5 - 6 Weeks ?850 - 20,800 6 - 7 Weeks ?4000 - 100,200 7 - 12 Weeks ? [address] - 289,000 16 - 29 Weeks ? 45[address] - 137,000 29 - 41 Weeks ? 900 - 60,000 Current interpretive data was last revised on 2015 Serum 01/05/2016 7:07 PM CONCRETE FLOATER Historical Provider MD LAB BLOOD ORDERABLES Jessenia l Result Performing Organization Address [facility] de Phone Number HISTORICAL RESULTS * Blood cell morphologic exam (01/05/2016 7:07 PM CONCRETE FLOATER) Pathologist [facility] Neutrophils 69.3 33.0 - 70.0 % HISTORICAL RESULTS Immature granulocytes 0.2 0.0 - 1.0 % HISTORICAL RESULTS Lymphocytes 25.1 21.0 - 55.0 % HISTORICAL RESULTS Monos 5.3 3.0 - 13.0 % HISTORICAL RESULTS Basophils 0.1 0.0 - 3.0 % HISTORICAL RESULTS Neutrophils, abs 6.7 1.5 - 9.4 K/cumm HISTORICAL RESULTS Immature granulocyte, abs 0.02 0.00 - 0.20 K/cumm HISTORICAL RESULTS Lymphocytes, abs 2.4 1.0 - 7.2 K/cumm HISTORICAL RESULTS Monocytes, absolute 0.5 0.1 - 1.7 K/cumm HISTORICAL RESULTS Basophils, abs 0.0 0.0 - 0.3 K/cumm HISTORICAL RESULTS Blood specimen (specimen) 01/05/2016 7:07 PM CONCRETE FLOATER Historical Provider MD LAB BLOOD ORDERABLES Jessenia l Result Performing Organization Address [facility] Co de Phone Number HISTORICAL RESULTS * (ABNORMAL) Blood cell count (CBC), morphologic exam (01/05/2016 7:07 PM CONCRETE FLOATER) Pathologist [facility] WBC 9.6 3.8 - 9.8 K/cumm HISTORICAL RESULTS RBC 4.92 3.90 - 5.00 M/cumm HISTORICAL RESULTS Hgb 12.9 12.1 - 15.1 g/dl HISTORICAL RESULTS Hct 39.9 36.1 - 44.3 % HISTORICAL RESULTS MCV 81.1 80.0 - 100.0 fl HISTORICAL RESULTS MCH 26.2(L) 26.7 - 33.7 pg HISTORICAL RESULTS MCHC 32.3(L) 32.7 - 36.0 g/dl HISTORICAL RESULTS Rdw 13.6 11.5 - 14.6 % HISTORICAL RESULTS Platelets 356 140 - 440 K/cumm HISTORICAL RESULTS MPV 8.6 8.0 - 12.0 fl HISTORICAL RESULTS NRBC 0.0 0.0 - 0.0 % HISTORIC AL RESULTS NRBC, abs 0.00 0.00 - 0.00 K/cumm HISTORICAL RESULTS Blood specimen (specimen) 01/05/2016 7:07 PM CONCRETE FLOATER Historical Provider LAB BLOOD ORDERABLES Jessenia l Result HISTORICAL RESULTS * (ABNORMAL) Urinalysis (01/05/2016 6:58 PM CONCRETE FLOATER) Pathologist [facility] Bilirubin, ur Negative Negative HISTOR ICAL RESULTS Color, ur Yellow Yellow HISTORICAL RESULTS U Blood Large(A) Negative HISTORICAL RESULTS Clarity, ur Clear Clear HISTORIC AL RESULTS Urobilinogen, quant, ur 0.2 0.2 - 1.0 Amisha Units/dl HISTORICAL RESULTS Comment:Normal Ranges: 0.2-1 .0 EU/dL Specific gravity, ur 1.016 1.003 - 1.030 HISTORICAL RESULTS Comment:Normal Ranges: 1.003 -1.030 Nitrites, ur Negative Negative HISTORI TROY RESULTS pH, ur 6.5 4.5 - 8.0 HISTORICAL RESULTS Comment:Normal ranges: 4.5-8 .0 Leukocyte esterase, ur Negative Negative HISTORICAL RESULTS Protein, ur, quant Negative Negative mg/dl HISTORICAL RESULTS Glucose, ur, quant Negative Negative mg/dl HISTORICAL RESULTS Ketones, ur Negative Negative HISTORIC AL RESULTS Urine 01/05/2016 6:58 PM CONCRETE FLOATER Result [facility] Provider LAB BLOOD ORDERABLES Jessenia l Result Performing Organization Address City/[facility] Co de Phone Number HISTORICAL RESULTS * (ABNORMAL) Urine microscopy (01/05/2016 6:58 PM CONCRETE FLOATER) RBC, ur 10 - 25(A) 0 - 2 /hpf HISTORIC AL RESULTS WBC, ur 0 - 2 0 - 2 /hpf HISTORICA L RESULTS Bacteria, ur Negative Negative HISTORI TROY RESULTS Hyaline casts 0 - 2 0 - 2 /lpf HISTO RICAL RESULTS Epithelial cells, ur 2 - 5(A) 0 - 2 /hpf HISTORICAL RESULTS Urine 01/05/2016 6:58 PM CONCRETE FLOATER Result [facility] Provider LAB BLOOD ORDERABLES Jessenia l Result Performing Organization Address [facility] Co de Phone Number HISTORICAL RESULTS * Urine (aerobic) culture (01/05/2016 6:58 PM CONCRETE FLOATER) Urine, clean voided (Unknown) 01/05/2016 6:58 PM CONCRETE FLOATER Narrative HISTORICAL RESULTS - 01/07/2016 6:43 AM CONCRETE FLOATER Less than 10,000 colonies/ml of Multiple Gram Positive organisms Routine susceptibility testing not performed. Result [facility] Provider LAB MICROBIOLOGY - GENERA L ORDERABLES Final Result Performing Organization Address [facility] Co de Phone Number HISTORICAL RESULTS * DISCHARGE LABORATORY CUMULATIVE REPORT (01/05/2016) Narrative 01/05/2016 Ordered by an unspecified provider. Result [facility] Provider LAB BLOOD ORDERABLES Jessenia l Result * ELECTROCARDIOGRAPHY (ECG) (01/05/2016) Narrative 01/05/2016 Ordered by an unspecified provider. Result [facility] Provider ECG ORDERABLES Final Res ult documented in this encounter Visit Diagnoses Diagnosis Syncope and collapse documented in this encounter
--- OUTSIDE RECORDS SUMMARY | 2024-11-10 06:00 | XMS_ITS | Encounter Summary ---
Author Organization [facility] Address [address] [place] [address] Care Team Providers Care Bottle Blower Name Role Phone Christine Peterson MD Primary Care Pro vider Encounter Details Date Type Department Care Team (Latest Contact Info) Description 07/03/2017 11:50 AM CDT - 07/03/2017 11:59 PM CDT Hospital Encounter [facility] Orthopedics and Sports Medicine [address] [id number] Discharge Disposition: Discharge to home or self care Social History Tobacco Use Types Packs/Day Years Used Date Smoking Tobacco: Never Smokeless Tobacco: Never Comments Unknown Sex and Gender Information Value Date Recorded Sex Assigned at Not on file Legal Sex Female 1:53 AM DIRECTOR OF PLAYER PERSONNEL Gender Identity Female 11/22/2020 12:52 PM DIRECTOR OF PLAYER PERSONNEL Sexual Orientation Straight 11/22/2020 12 :52 PM DIRECTOR OF PLAYER PERSONNEL documented as of this encounter Medications at Time of Discharge FLUoxetine (FLUoxetine) 10 mg capsule take 3 capsule by oral route every day 0 0 03/17/2017 02/23/2019 FLUoxetine (PROzac) 20 mg capsule TK WITH PROZAC 10 MG QD FOR 30 DAYS 3 06/27/2017 02/23/2019 ibuprofen (ADVIL,MOTRIN) 800 mg tablet Take 1 tablet PO BID 60 tablet 2 07/03/2017 02/23/2019 norethindrone-e.e stradiol-iron (JUNEL ,) 1 mg-20 mcg (21)/75 mg (7) per tablet take 1 tablet by oral route every day 28 3 03/17/2017 02/23/2019 documented as of this encounter Discharge Disposition Disposition Code Departure Means Destination Discharge to home or self care documented in this encounter Plan of Treatment Not on file documented as of this encounter Procedures Procedure Name Priority Date/Time Associated Diagnosis Comments XR SHOULDER LEFT 2 OR MORE VIEWS Schedule Routine, Read Routine (OP Routine) 07/03/2017 11:58 AM CDT Acute pain of left shoulder documented in this encounter Results * XR Shoulder Left 2 or More Views (07/03/2017 11:58 AM CDT) Anatomical Region Laterality Modality Upper Extremities, Shoulder Left Digi mirian Radiography Narrative 07/03/2017 12:23 PM CDT See Dictated Note us Rufus Oro MD IMG XR PROCEDURES Final Res ult documented in this encounter Visit Diagnoses Not on filedocumented in this encounter Care Teams Bottle Blower Relationship Specialty Start Date End Date Christine Peterson MD PCP - General Pediatrics 07/03/17 02/22/19 documented as of this encounter
--- OUTSIDE RECORDS SUMMARY | 2024-11-10 06:00 | XMS_ITS | Encounter Summary ---
Author Organization [facility] Facility Care Team Providers Care Network Cabler Name Role Phone Uriel Walker MD Primary Care Provider [phone] Encounter Details Date Type Department Care Team (Latest Contact Info) Description 07/13/2019 Travel Social History Tobacco Use Types Packs/Day [...] on file Legal Sex Female 1:53 AM HIGH SPEED OPERATOR Gender Identity Female 11/22/2020 12:52 PM HIGH SPEED OPERATOR Sexual Orientation Straight 11/22/2020 12 :52 PM HIGH SPEED OPERATOR documented as of this encounter Plan of Treatment Not on file documented as of this encounter Visit Diagnoses Not on filedocumented in this encounter Care Teams Network Cabler Relationship Specialty Start Date End Date [place] [id number] PCP - General Family Medicine 02/23/19 documented as of this encounter
--- OUTSIDE RECORDS SUMMARY | 2024-11-10 06:00 | XMS_ITS | Encounter Summary ---
Author Organization [facility] Facility Care Team Providers Care Wellness Spa Manager Name Role Phone Uriel Walker MD Primary Care Provider [phone] Encounter Details Date Type Department Care Team (Latest Contact Info) Description 02/23/2019 Travel Social History Tobacco Use Types Packs/Day Years Used Date Smoking Tobacco: Never Smokeless Tobacco: Never Comments No Sex and Gender Information Value Date Recorded Sex Assigned at Not on file Legal Sex Female 1:53 AM CABLE MOCK UP ASSEMBLER Gender Identity Female 11/22/2020 12:52 PM CABLE MOCK UP ASSEMBLER Sexual Orientation Straight 11/22/2020 12 :52 PM CABLE MOCK UP ASSEMBLER documented as of this encounter Plan of Treatment Not on file documented as of this encounter Visit Diagnoses Not on filedocumented in this encounter Care Teams Wellness Spa Manager Relationship Specialty Start Date End Date Uriel Walker MD [address] [place] [address] PCP - General Family Medicine 02/23/19 documented as of this encounter
--- OUTSIDE RECORDS SUMMARY | 2024-11-10 06:00 | XMS_ITS | Encounter Summary ---
Author Organization [facility] Healthcare Address [address] [place] [address] Care Team Providers Care Pedigree Tracer Name Role Phone Christine Peterson MD Primary Care Pro vider Reason for Visit * Reason Comments Nausea Encounter Details Date Type Department Care Team (Late st Contact Info) Description 01/29/2019 2:31 PM CDT - 01/29/2019 5:28 PM CDT Emergency [facility] Emergency Department [address] [place] [address] Meliza Cabello MD [address] [place] [id number] RUQ pain (Primary Dx) Discharge Disposition: Discharge to home or self care Social History Tobacco Use Types Packs/Day Years Used Date Smoking Tobacco: Never Smokeless Tobacco: Never Comments No Sex and Gender Information Value Date Recorded Sex Assigned at Not on file Legal Sex Female 1:53 AM BETA TESTER Gender Identity Female 11/22/2020 12:52 PM BETA TESTER Sexual Orientation Straight 11/22/2020 12 :52 PM BETA TESTER documented as of this encounter Last Filed Vital Signs Vital Sign Reading Time Taken Comments Blood Pressure 155/92 01/29/2019 5:26 PM CDT Pulse 83 01/29/2019 5:26 PM CDT Temperature 37 ??C (98.6 ??F) 01/29/2019 5:26 PM CDT Respiratory Rate 20 01/29/2019 5:26 PM CDT Oxygen Saturation 98% 01/29/2019 1:30 PM CDT Inhaled Oxygen Concentration - - Weight 129.6 kg (285 lb 11. 5 oz) 01/29/2019 1:30 PM CDT Height 165.7 cm (5' 5.25 ) 01/29/2019 1:30 PM CD T Body Mass Index 47.18 01/29/2019 1:30 PM CDT Body Mass Index Percentile 99.94% 01/29/2019 1:3 0 PM CDT Growth Chart: [facility] (Girls, 2- 20 Years) documented in this encounter Discharge Instructions * Attachments The following attachments cannot be sent through Care Everywhere. * Abdominal Pain, Unknown Cause, Female (Child) (Nauruan) documented in this encounter Medications at Time of Discharge blood glucose diagnostic (CONTOUR NEXT TEST STRIPS) strip Use to test blood sugar twice daily or as directed. 08/25/2018 3 dicyclomine (BENTYL) 20 mg tablet Take 1 tablet (20 mg total) by mouth 2 (two) times a day 20 tablet 01/29/2019 9 FLUoxetine (FLUoxetine) 10 mg capsule take 3 capsule by oral route every day 0 0 03/17/2017 9 FLUoxetine (PROzac) 20 mg capsule TK WITH PROZAC 10 MG QD FOR 30 DAYS 3 06/27/2017 9 ibuprofen (ADVIL,MOTRIN) 800 mg tablet Take 1 tablet PO BID 60 tablet 2 07/03/2017 9 lancets (MICROLET LANCET) misc 5-9 each 08/25/2018 3 norethindrone-e.estr adiol-iron (11/22, ,) 1 mg-20 mcg (21)/75 mg (7) per tablet take 1 tablet by oral route every day 28 3 03/17/2017 9 ondansetron ODT (ZOFRAN-ODT) 4 mg disintegrating tablet Dissolve 1 tablet oral every 4 hours as needed for nausea or vomiting. 15 tablet 01/29/2019 0 documented as of this encounter Ordered Prescriptions Prescription Sig Dispense Quantity Refills Last Filled Start Date End Date dicyclomine (BENTYL) 20 mg tablet Take 1 tablet (20 mg total) by mouth 2 (two) times a day 20 tablet 01/29/2019 9 ondansetron ODT (ZOFRAN-ODT) 4 mg disintegrating tablet Dissolve 1 tablet oral every 4 hours as needed for nausea or vomiting. 15 tablet 01/29/2019 0 documented in this encounter Discharge Disposition Disposition Code Departure Means Destination Discharge to home or self care documented in this encounter ED Notes * Meliza Cabello MD - 01/29/2019 3:25 PM CDT HPI Chief Complaint Patient presents with ??? Nausea 3:25 PM Brandie Torres is a 18 y.o. female who presents to the ED for evaluation of multiple complaints. Pt has been having abdominal pain, nausea, lightheadedness, and generalized weakness for the past few days. She had a temperature of 100.2 yesterday. Denies any cough, sore throat, chest pain, or SOB. Denies any emesis, dysuria, hematuria, dizziness, or HARDEN> Patient History History reviewed. No pertinent past medical history. Past Surgical History: Procedure Laterality Date ??? TONSILECTOMY, ADENOIDECTOMY, BILATERAL MYRINGOTOMY AND TUBES ??? TONSILLECTOMY Tonsillectomy Family History Problem Relation Age of Onset ??? Diabetes Mother Diabetes mellitus; ??? Hypertension Father Hypertension; Social History Tobacco Use ??? Smoking status: Never Smoker ??? Smokeless tobacco: Never Used Substance Use Topics ??? Alcohol use: Not on file ??? Drug use: Not on file Review of Systems Review of Systems Constitutional: Negative for chills and fever. HENT: Negative for congestion and sore throat. Eyes: Negative for pain and visual disturbance. Respiratory: Negative for cough, shortness of breath and wheezing. Cardiovascular: Negative for chest pain, palpitations and leg swelling. Gastrointestinal: Positive for abdominal pain and nausea. Negative for diarrhea and vomiting. Genitourinary: Negative for difficulty urinating, dysuria and frequency. Neurological: Positive for weakness and light-headedness. Negative for dizziness and headaches. All other systems reviewed and are negative. Physical Exam ED Triage Vitals [01/29/19 1330] Temp Pulse Resp BP SpO2 36.6 ??C (97.8 ??F) 90 20 (!) 160/90 98 % Temp src Heart Rate Source Patient Position BP Location FiO2 (%) Temporal -- -- -- -- Physical Exam Constitutional: She is oriented to person, place, and time. She appears well- developed and well-nourished. Obese HENT: Head: Normocephalic. Nose: Nose normal. Mouth/Throat: Oropharynx is clear and moist. Eyes: Pupils are equal, round, and reactive to light. Conjunctivae and EOM are normal. Neck: Normal range of motion. Neck supple. Cardiovascular: Normal rate, regular rhythm and normal heart sounds. Pulmonary/Chest: Effort normal and breath sounds normal. Abdominal: Soft. Bowel sounds are normal. There is tenderness. Tenderness to palpation in RUQ and epigastric Musculoskeletal: Normal range of motion. Neurological: She is alert and oriented to person, place, and time. Skin: Skin is warm and dry. Psychiatric: She has a normal mood and affect. Nursing note and vitals reviewed. Procedures MDM Labs Reviewed URINALYSIS AND REFLEX TO MICROSCOPIC AND CULTURE - Abnormal Result Value Color, ur Yellow Clarity, ur Cloudy (*) Specific gravity, ur >1.030 (*) pH, urine 6.0 Protein, ur ql Negative Glucose, ur ql Negative Ketones, ur Negative Bilirubin, ur Negative Blood, ur Negative Urobilinogen, ur 0.2 Nitrite, ur Negative Leukocyte esterase, ur 1+ (*) Narrative: Urine pH is affected by diet, medications, systemic acid-base disturbances, and renal tubular function. pH may affect urinary stone formation. For example, urine pH below 6.0 may help reduce the tendency for calcium phosphate stones and pH greater than 6.0 may reduce the tendency for uric acid stone formation. Source: [employer].Last revised 2017 CBC WITH AUTO DIFFERENTIAL - Abnormal WBC 9.6 Hgb 11.5 (*) Hct 36.4 Plt 396 MPV 8.3 (*) RBC 4.82 MCV 75.5 (*) MCH 23.9 (*) MCHC 31.6 (*) RDW CV 14.0 RDW SD 37.0 NRBC Abs 0.00 Narrative: URINALYSIS, MICROSCOPIC ONLY - Abnormal WBC, ur 11-20 (*) RBC, ur 11-20 Epithelial cells, squamous, ur 21-50 (*) Bacteria, ur 3+ (*) Hyaline casts, ur 11-20 (*) Narrative: DIFFERENTIAL AUTO - Abnormal Neutrophil absolute 7.4 (*) Immature granulocyte absolute 0.0 Lymphocytes absolute 1.6 Monocyte absolute 0.4 Eosinophils absolute 0.0 Basophils, abs 0.0 Neutrophils 77.1 Immature granulocytes 0.3 Lymphocytes 17.2 Monocytes 4.7 Eosinophils 0.5 Basophils 0.2 Narrative: COMPREHENSIVE METABOLIC PANEL Sodium 141 Potassium, pl 4.2 Chloride 103 CO2 26 Anion Gap 12 BUN 15 Creatinine 0.61 Glucose 174 Calcium 10.2 Bilirubin, total 0.3 Protein, pl 7.5 Albumin 4.3 Alk phos 99 ALT 20 AST 15 Narrative: LIPASE Lipase 18 Narrative: HCG, URINE, QUALITATIVE HCG, ur Negative Narrative: US Gallbladder Final Result 1. Pancreas poorly seen due to overlying bowel gas. 2. Overall exam quality compromised by large body habitus. 3. Fatty liver. 4. No other right upper quadrant abnormality seen. Electronically signed by: Dhaval Werner Jr., M.D. BP (!) 160/90 Pulse 90 Temp 36.6 ??C (97.8 ??F) (Temporal) Resp 20 Ht 165.7 cm (5' 5.25 ) Wt 129.6 kg (285 lb 11.5 oz) LMP 01/13/2019 SpO2 98% BMI 47.18 kg/m?? MDM Clinical Impression: 1. RUQ pain Abbie Bauman scribed for Meliza Cabello MD, in the MD's presence. I electronically signed this note at 5:56 AM on 01/12/2019. I, Meliza Cabello MD, have personally performed the services described in the documentation, reviewed the documentation, as recorded by the scribe in my presence, and it accurately and completely records my words and actions. Abbie Bauman 01/29/19 1535 Meliza Cabello MD 01/29/19 6853 * Kalli Robles, ALIS - 01/29/2019 1:29 PM CDT Patient presents to the emergency room for evalaution of General malaise x 3 days. Patient reports light headedness, nausea and headache today. Denies vomiting. Denies sick contacts with same symptoms. Patient reports mild diarrhea. Mother contacted for consent. documented in this encounter Miscellaneous Notes * ED Re-evaluation Note - Yoel Horan MD - 01/29/2019 5:15 PM CDT ED Re-evaluation Care soon from Dr. Cabello. I reviewed labs and repeated a history and physical. Labs and ultrasound were unremarkable. Patient feels okay now. Discussed possible etiologies including poor functioning gallbladder. Her symptoms are not classic for gallbladder pathology is are not postprandial. Other etiologies could be abdominal migraine she has headaches associated with this time with time. Could also be dehydration. She appears well now in the ER. He also be viral infectious etiology as she has a temperature of a 100.2?? yesterday. No indication for further imaging or workup at this time. Discussed results with the patient. Will give her prescription for some Zofran and some Bentyl. May follow up with primary care provider Labs Reviewed URINALYSIS AND REFLEX TO MICROSCOPIC AND CULTURE - Abnormal Result Value Color, ur Yellow Clarity, ur Cloudy (*) Specific gravity, ur >1.030 (*) pH, urine 6.0 Protein, ur ql Negative Glucose, ur ql Negative Ketones, ur Negative Bilirubin, ur Negative Blood, ur Negative Urobilinogen, ur 0.2 Nitrite, ur Negative Leukocyte esterase, ur 1+ (*) Narrative: Urine pH is affected by diet, medications, systemic acid-base disturbances, and renal tubular function. pH may affect urinary stone formation. For example, urine pH below 6.0 may help reduce the tendency for calcium phosphate stones and pH greater than 6.0 may reduce the tendency for uric acid stone formation. Source: [employer].Last revised 2017 CBC WITH AUTO DIFFERENTIAL - Abnormal WBC 9.6 Hgb 11.5 (*) Hct 36.4 Plt 396 MPV 8.3 (*) RBC 4.82 MCV 75.5 (*) MCH 23.9 (*) MCHC 31.6 (*) RDW CV 14.0 RDW SD 37.0 NRBC Abs 0.00 Narrative: URINALYSIS, MICROSCOPIC ONLY - Abnormal WBC, ur 11-20 (*) RBC, ur 11-20 Epithelial cells, squamous, ur 21-50 (*) Bacteria, ur 3+ (*) Hyaline casts, ur 11-20 (*) Narrative: DIFFERENTIAL AUTO - Abnormal Neutrophil absolute 7.4 (*) Immature granulocyte absolute 0.0 Lymphocytes absolute 1.6 Monocyte absolute 0.4 Eosinophils absolute 0.0 Basophils, abs 0.0 Neutrophils 77.1 Immature granulocytes 0.3 Lymphocytes 17.2 Monocytes 4.7 Eosinophils 0.5 Basophils 0.2 Narrative: COMPREHENSIVE METABOLIC PANEL Sodium 141 Potassium, pl 4.2 Chloride 103 CO2 26 Anion Gap 12 BUN 15 Creatinine 0.61 Glucose 174 Calcium 10.2 Bilirubin, total 0.3 Protein, pl 7.5 Albumin 4.3 Alk phos 99 ALT 20 AST 15 Narrative: LIPASE Lipase 18 Narrative: HCG, URINE, QUALITATIVE HCG, ur Negative Narrative: US Gallbladder Final Result 1. Pancreas poorly seen due to overlying bowel gas. 2. Overall exam quality compromised by large body habitus. 3. Fatty liver. 4. No other right upper quadrant abnormality seen. Electronically signed by: Dhaval Werner Jr., M.D. 1. RUQ pain Yoel Horan MD 01/29/19 1717 documented in this encounter Plan of Treatment Not on file documented as of this encounter Procedures Procedure Name Priority Date/Time Associated Diagnosis Comments US GALLBLADDER ED 01/29/2019 4:18 PM CDT DIFFERENTIAL AUTO STAT 01/29/2019 1:4 8 PM CDT CBC WITH AUTO DIFFERENTIAL STAT 01/29/2019 1:48 PM CDT LIPASE STAT 01/29/2019 1:48 PM CDT COMPREHENSIVE METABOLIC PANEL STAT 01/29/2019 1:48 PM CDT URINALYSIS AND REFLEX TO MICROSCOPIC AND CULTURE STAT 01/29/2019 1:40 PM CDT HCG, URINE, QUALITATIVE STAT 01/29/2019 1:40 PM CDT URINALYSIS, MICROSCOPIC ONLY STAT 01/29/2019 1:40 PM CDT URINE CULTURE STAT 01/29/2019 1:40 PM CDT documented in this encounter Results * US Gallbladder (01/29/2019 4:18 PM CDT) Anatomical Region Laterality Modality Abdomen N/A Ultrasound 01/29/2019 4:21 PM CDT Impressions 01/29/2019 4:23 PM CDT 1. ??Pancreas poorly seen due to overlying bowel gas. 2. ??Overall exam quality compromised by large body habitus. 3. ??Fatty liver. 4. ??No other right upper quadrant abnormality seen. Electronically signed by: Dhaval Werner Jr., M.D. Narrative 01/29/2019 4:23 PM CDT US GALLBLADDER HISTORY: Abdominal pain COMPARISON: None available TECHNIQUE: Grayscale real-time transabdominal images. FINDINGS: Overall exam quality is compromised by large body habitus and bowel gas Pancreas is poorly seen due to overlying bowel gas. Visualized portions of abdominal aorta and inferior vena cava are normal. Liver has increased echogenicity suggestive of fatty change.; Without focal abnormality. Intrahepatic ducts are not dilated Common bile duct measures 2.4 mm. Gallbladder is normally distended in the right upper quadrant without wall thickening, pericholecystic fluid, or calculi or other intraluminal echoes. Right kidney measures 10.4 cm length and 4.9 x 5.8 cm width without pelvicalyceal distention, mass or cyst. No abdominal free fluid is seen Procedure Note Dhaval Werner Jr., MD - 01/29/2019 US GALLBLADDER HISTORY: Abdominal pain COMPARISON: None available TECHNIQUE: Grayscale real-time transabdominal images. FINDINGS: Overall exam quality is compromised by large body habitus and bowel gas Pancreas is poorly seen due to overlying bowel gas. Visualized portions of abdominal aorta and inferior vena cava are normal. Liver has increased echogenicity suggestive of fatty change.; Without focal abnormality. Intrahepatic ducts are not dilated Common bile duct measures 2.4 mm. Gallbladder is normally distended in the right upper quadrant without wall thickening, pericholecystic fluid, or calculi or other intraluminal echoes. Right kidney measures 10.4 cm length and 4.9 x 5.8 cm width without pelvicalyceal distention, mass or cyst. No abdominal free fluid is seen IMPRESSION: 1. Pancreas poorly seen due to overlying bowel gas. 2. Overall exam quality compromised by large body habitus. 3. Fatty liver. 4. No other right upper quadrant abnormality seen. Electronically signed by: Dhaval Werner Jr., M.D. us Meliza Cabello MD IMG US PROCEDURES Final Re sult * (ABNORMAL) Differential, auto (01/29/2019 1:48 PM CDT) Neutrophil abs 7.4(H) 1.7 - 6.5 K/cumm [facility] ([place]) Imm gran abs 0.0 0.0 - 0.1 K/cumm [facility] ([place]) Lymphocyte abs 1.6 0.8 - 3.3 K/cumm [facility] ([place]) Monocyte abs 0.4 0.2 - 0.8 K/cumm [facility] ([place]) Eosinophil abs 0.0 0.0 - 0.5 K/cumm [facility] ([place]) Basophil abs 0.0 0.0 - 0.1 K/cumm [facility] ([place]) Neutrophil pct 77.1 % [facility] ([place]) Comment: Interpretive [...] was last revised on 2018. Lymphocyte pct 17.2 % [facility] ([place]) Comment: Interpretive Data Percent cell count reference ranges are not reported, since discordance with absolute values may lead to misinterpretation of CBC data. Current Interpretive Data was last revised on 2018. Monocyte pct 4.7 % [facility] ([place]) Comment: Interpretive Data [...] revised on 2018. Basophil pct 0.2 % [facility] ([place]) Comment: Interpretive Data Percent cell count reference ranges are not reported, since discordance with absolute values may lead to misinterpretation of CBC data. Current Interpretive Data was last revised on 2018. Blood specimen (specimen) 01/29/2019 1:48 PM CDT 01/29/2019 1:53 PM CDT Narrative [facility] ([place]) - 01/29/2019 1:55 PM CDT Meliza Cabello MD LAB BLOOD ORDERABLES Final Result Performing Organization Address City/[facility]/ZIP Co de Phone Number [facility] ([place]) [address] [place] [address] [place] [address] * Lipase (01/29/2019 1:48 PM CDT) Lipase 18 5 - 50 Units/L [facility] ([place]) Blood specimen (specimen) 01/29/2019 1:48 PM CDT 01/29/2019 1:53 PM CDT Narrative [facility] ([place]) - 01/29/2019 2:12 PM CDT Meliza Cabello MD LAB BLOOD ORDERABLES Final Result [facility] ([place]) [facility] [place] [address] * Comprehensive metabolic panel (01/29/2019 1:48 PM CDT) Sodium 141 135 - 145 mmol/L [facility] ([place]) Potassium, pl 4.2 3.3 - 4.9 mmol/L [facility] ([place]) Chloride 103 100 - 114 mmol/L [facility] ([place]) CO2 26 20 - 30 mmol/L [facility] ([place]) Anion gap 12 2 - 15 mmol/L [facility] ([place]) BUN 15 9 - 18 mg/dL [facility] ([place]) Creatinine 0.61 0.40 - 1.00 mg/dL [facility] ([place]) Glucose 174 70 - 199 mg/dL [facility] ([place]) [...] interpretive data was last revised 2017. Calcium 10.2 8.5 - 10.3 mg/dL [facility] ([place]) Bilirubin, total 0.3 0.1 - 1.2 mg/dL [facility] ([place]) Protein, pl 7.5 6.5 - 8.5 g/dL [facility] ([place]) Albumin 4.3 3.2 - 5.0 g/dL [facility] ([place]) Alk phos 99 70 - 260 Units/L [facility] ([place]) ALT 20 7 - 45 Units/L [facility] ([place]) AST 15 10 - 50 Units/L [facility] ([place]) Blood specimen (specimen) 01/29/2019 1:48 PM CDT 01/29/2019 1:53 PM CDT Narrative [facility] ([place]) - 01/29/2019 2:12 PM CDT us Meliza Cabello MD LAB BLOOD ORDERABLES Final Result [facility] ([place]) [facility] [place] [address] * (ABNORMAL) CBC with auto differential (01/29/2019 1:48 PM CDT) WBC 9.6 3.8 - 9.9 K/cumm [facility] ([place]) Hgb 11.5(L) 11.9 - 15.5 g/dL [facility] ([place]) Hct 36.4 35.6 - 45.5 % [facility] ([place]) Plt 396 150 - 400 K/cumm [facility] ([place]) MPV 8.3(L) 9.1 - 12.3 fL [facility] ([place]) RBC 4.82 3.90 - 5.20 M/cumm [facility] ([place]) MCV 75.5(L) 81.3 - 96.4 fL [facility] ([place]) MCH 23.9(L) 27.1 - 33.3 pg [facility] ([place]) MCHC 31.6(L) 32.3 - 35.7 g/dL [facility] ([place]) RDW CV 14.0 11.1 - 14.9 % [facility]) RDW SD 37.0 35.7 - 48.1 fL [facility] ([place]) NRBC abs 0.00 0.00 - 0.01 K/cumm [facility] ([place]) Blood specimen (specimen) 01/29/2019 1:48 PM CDT 01/29/2019 1:53 PM CDT Narrative [facility] ([place]) - 01/29/2019 1:55 PM CDT us Meliza Cabello MD LAB BLOOD ORDERABLES Final Result [facility] ([place]) [facility] [place] [address] * (ABNORMAL) Urine culture Urine, clean voided (01/29/2019 1:40 PM CDT) Report Final Report: Growth indicates contamination with gram-positive madhav. Please submit a new specimen with special attention given to the collection process and to prompt transport to the laboratory. (.) [facility] ([place]) Comment:Testing performed by : [facility], [address] [place]., [address] Organism GROWTH INDICATES CONTAMINATION WITH GRAM-POS MADHAV [facility] ([place]) Urine, clean voided 01/29/2019 1:40 PM CDT 01/29/2019 8:35 PM CDT Narrative [facility] ([place]) - 01/30/2019 2:38 PM CDT Urine culture reflexed based upon urinalysis results. Testing performed by [facility] Microbiology Laboratory ([phone]) us Meliza Cabello MD LAB MICROBIOLOGY - GENERAL ORDERABLES Final Result [facility] ([place]) [address] [facility] Department [place] [address] * (ABNORMAL) Urinalysis, microscopic only (01/29/2019 1:40 PM CDT) WBC, ur 11-20(A) 0 - 5 /HPF [facility] ([place]) RBC, ur 11-20 0 - 2 /HPF [facility] ([place]) Epithelial cells, squamous, ur 21-50(A) 0 - 5 /HPF [facility] ([place]) Comment:Suggestive of contam ination. Consider recollection by clean catch. Bacteria, ur 3+(A) [facility] ([place]) Hyaline casts, ur 11-20(A) 0 - 10 /LPF [facility] ([place]) Urine, clean voided 01/29/2019 1:40 PM CDT 01/29/2019 1:43 PM CDT Narrative [facility] ([place]) - 01/29/2019 1:59 PM CDT Meliza Cabello MD LAB URINE ORDERABLES Final Result Performing Organization Address [facility] Co de Phone Number [facility] ([place]) [address] [facility] [place] [address] * hCG, urine, qualitative (01/29/2019 1:40 PM CDT) Pathologist [facility] HCG, ur Negative Negative [facility] ([place]) Urine 01/29/2019 1:40 PM CDT 01/29/2019 1:43 PM CDT Narrative [facility] ([place]) - 01/29/2019 1:59 PM CDT Meliza Cabello MD LAB URINE ORDERABLES Final Result Performing Organization Address [facility] de Phone Number [facility] ([place]) [address] [facility] [place] [address] * (ABNORMAL) Urinalysis reflex to microscopic and culture Urine, clean voided (01/29/2019 1:40 PM CDT) Color, ur Yellow Yellow [facility] ([place]) Clarity, ur Cloudy(A) Clear [facility] ([place]) Specific gravity, ur >1.030(H) 1.010 - 1.025 [facility] ([place]) pH, urine 6.0 [facility] ([place]) Protein, ur ql Negative Negative [facility] ([place]) Glucose, ur ql Negative Negative [facility] ([place]) Ketones, ur Negative Negative [facility] ([place]) Bilirubin, ur Negative Negative [facility] ([place]) Blood, ur Negative Negative [facility] ([place]) Urobilinogen, ur 0.2 mg/dL [facility] ([place]) Nitrite, ur Negative Negative [facility] ([place]) Leukocyte esterase, ur 1+(A) Negative [facility] ([place]) Urine, clean voided 01/29/2019 1:40 PM CDT 01/29/2019 1:43 PM CDT Narrative [facility] ([place]) - 01/29/2019 1:59 PM CDT ?? Urine pH is affected by diet, medications, systemic acid-base disturbances, and renal tubular function. ??pH may affect urinary stone formation. ??For example, urine pH below 6.0 may help reduce the tendency for calcium phosphate stones and pH greater than 6.0 may reduce the tendency for uric acid stone formation. Source: [employer]. Last revised 2017 us Meliza Cabello MD LAB MICROBIOLOGY - GENERAL ORDERABLES Final Result [facility] ([place]) [address] [facility] Department [place] [address] documented in this encounter Visit Diagnoses Diagnosis RUQ pain- Primary Abdominal pain, right upper quadrant documented in this encounter Historical Medications * This list may reflect changes made after this encounter. lancets (MICROLET LANCET) misc 5-9 each 08/25/2018 06/06/2023 blood glucose diagnostic (CONTOUR NEXT TEST STRIPS) strip Use to test blood sugar twice daily or as directed. 08/25/2018 06/06/2023 added in this encounter Care Teams Pedigree Tracer Relationship Specialty Start Date End Date Christine Peterson MD PCP - General Pediatrics 07/03/17 02/22/19 documented as of this encounter
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
--- OUTSIDE RECORDS SUMMARY | 2024-11-10 06:00 | XMS_ITS | Encounter Summary ---
Author Organization [facility] Address [address] [place] [address] Care Team Providers Care Department Mgr Name Role Phone Christine Peterson MD Primary Care Pro vider Reason for Visit * Reason Comments Follow-up Encounter Details Date Type Department Care Team (Late st Contact Info) Description 07/31/2017 10:45 AM CDT Office Visit [facility] Orthopedics and Sports Medicine [address] [facility] [address] [place] [address] Rufus Oro MD [address] [place] [address] [address] [place] [address] Contusion of left shoulder, subsequent encounter (Primary Dx) Social History Tobacco Use Types Packs/Day Years Used Date Smoking Tobacco: Never Smokeless Tobacco: Never Comments Unknown Sex and Gender Information Value Date Recorded Sex Assigned at Not on file Legal Sex Female 1:53 AM RESPIRATORY DIRECTOR Gender Identity Female 11/22/2020 12:52 PM RESPIRATORY DIRECTOR Sexual Orientation Straight 11/22/2020 12 :52 PM RESPIRATORY DIRECTOR documented as of this encounter Last Filed Vital Signs Vital Sign Reading Time Taken Comments Blood Pressure 136/78 07/31/2017 10:31 AM CDT Pulse 98 07/31/2017 10:31 AM CDT Temperature - - Respiratory Rate - - Oxygen Saturation - - Inhaled Oxygen Concentration - - Weight 126.6 kg (279 lb) 07/31/2017 10:31 AM CDT Height 165.1 cm (5' 5 ) 07/31/2017 10:31 AM CDT Body Mass Index 46.43 07/31/2017 10:31 AM CDT Body Mass Index Percentile 99.97% 07/31/2017 10: 31 AM CDT Growth Chart: [facility] (Girls, 2- 20 Years) documented in this encounter Progress Notes * Rufus Oro MD - 07/31/2017 12:00 AM CDT History This 16-year-old female returns for followup in reference to her left nondominant shoulder. She is now 1 month status post contusion injury to the shoulder and was treated with immobilization initially and since her her last visit has been going to physical therapy. The therapy is helpful. She is now moving her arm much better than she did before she does not have significant pain. Her neurological and vascular exams have remained normal. She has no clinical deformity, redness, warmth, open areas, lacerations, abrasions, rashes, bruising, scars, sign of cellulitis or infection. Impression One month status post contusion injury left nondominant shoulder-improving. Plan I am going to stop her formal physical therapy. Have her continue the home exercise program that she has been doing. I think at this point she only needs the sling as necessary. I am going to keep her out of sports and PE and see her back in 1 month before progressing her activities at that time. Idiscussed all this with the patient and her mother who was accompanying her today, answered all their questions. They appeared to understand, agree with this proposed plan of treatment. documented in this encounter Plan of Treatment Not on file documented as of this encounter Visit Diagnoses Diagnosis Contusion of left shoulder, subsequent encounter- Primary documented in this encounter Care Teams Department Mgr Relationship Specialty Start Date End Date Christine Peterson MD PCP - General Pediatrics 07/03/17 02/22/19 documented as of this encounter
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
--- OUTSIDE RECORDS SUMMARY | 2024-11-10 06:00 | XMS_ITS | Encounter Summary ---
Author Organization [facility] Address [address] [place] [address] Care Team Providers Care Biofuels Manager Name Role Phone Uriel Walker MD Primary Care Provider [phone] Reason for Visit * Reason Comments TB Test pt is here to have P PD read Flu Vaccine pt is here to have f cate vaccine Immunizations pt is here to have 3 rd meningococcal Encounter Details Date Type Department Care Team (Late st Contact Info) Description 07/15/2019 3:30 PM CDT Clinical Support [facility] [address] [address] Social History Tobacco Use Types Packs/Day Years [...] on file Legal Sex Female 1:53 AM CASH ANALYST Gender Identity Female 11/22/2020 12:52 PM CASH ANALYST Sexual Orientation Straight 11/22/2020 12 :52 PM CASH ANALYST documented as of this encounter Plan of Treatment Not on file documented as of this encounter Visit Diagnoses Not on filedocumented in this encounter Orders Immunization/Injection Count Last Ordered Date First Ordered Date FLU VACCINE QUAD PF 3Y+ IM - FLUZONE 1 07/04 MENINGOCOCCAL B, OMV (BEXSERO) 1 07/15/2019 documented in this encounter Care Teams Biofuels Manager Relationship Specialty Start Date End Date Uriel Walker MD [address] [place] [address] PCP - General Family Medicine 02/23/19 documented as of this encounter
--- OUTSIDE RECORDS SUMMARY | 2024-11-10 06:00 | XMS_ITS | Encounter Summary ---
Author Organization [facility] Address [address] [place] [address] Care Team Providers Care Black Top Roller Name Role Phone Uriel Walker MD Primary Care Provider [phone] Encounter Details Date Type Department Care Team (Late st Contact Info) Description 08/11/[address] [facility] [address] [place] [address] Uriel Walker MD [address] [place] [address] Social History Tobacco Use Types Packs/Day Years [...] on file Legal Sex Female 1:53 AM LAUNDRY SORTER Gender Identity Female 11/22/2020 12:52 PM LAUNDRY SORTER Sexual Orientation Straight 11/22/2020 12 :52 PM LAUNDRY SORTER documented as of this encounter Miscellaneous Notes * Telephone Encounter - Korin Albarran MA - 08/11/2019 2:21 PM CDT Pt's mom Brandi left a voicemail saying pt is needing a new copy of her school physical. She asked ifwe could fax it to the school. I called pt's mom back and she said pt is going to rock picker copy after school. Copy is upfront. CBN: [phone] documented in this encounter Plan of Treatment Not on file documented as of this encounter Visit Diagnoses Not on filedocumented in this encounter Care Teams Black Top Roller Relationship Specialty Start Date End Date Uriel Walker MD [address] [place] [address] PCP - General Family Medicine 02/23/19 documented as of this encounter
--- OUTSIDE RECORDS SUMMARY | 2024-11-10 06:00 | XMS_ITS | Encounter Summary ---
Author Organization [facility] Care Team Providers Care Heel Wheeler Name Role Phone Uriel Walker MD Primary Care Provider [phone] Encounter Details Date Type Department Care Team (Latest Contact Info) Description 03/22/2019 Travel Social History Tobacco Use Types Packs/Day Years Used Date Smoking Tobacco: Never Smokeless Tobacco: Never Comments No Sex and Gender Information Value Date Recorded Sex Assigned at Not on file Legal Sex Female 1:53 AM DISTRIBUTION FIELD ENGINEER Gender Identity Female 11/22/2020 12:52 PM DISTRIBUTION FIELD ENGINEER Sexual Orientation Straight 11/22/2020 12 :52 PM DISTRIBUTION FIELD ENGINEER documented as of this encounter Plan of Treatment Not on file documented as of this encounter Visit Diagnoses Not on filedocumented in this encounter Care Teams Heel Wheeler Relationship Specialty Start Date End Date Uriel Walker MD [address] [place] [address] PCP - General Family Medicine 02/23/19 documented as of this encounter
--- OUTSIDE RECORDS SUMMARY | 2024-11-10 06:00 | XMS_ITS | Encounter Summary ---
Author Organization [facility] Care Team Providers Care Certified Professional Ergonomist Name Role Phone Uriel Walker MD Primary Care Provider [phone] Encounter Details Date Type Department Care Team (Latest Contact Info) Description 07/15/2019 Travel Social History Tobacco Use Types Packs/Day [...] on file Legal Sex Female 1:53 AM SPANISH TUTOR Gender Identity Female 11/22/2020 12:52 PM SPANISH TUTOR Sexual Orientation Straight 11/22/2020 12 :52 PM SPANISH TUTOR documented as of this encounter Plan of Treatment Not on file documented as of this encounter Visit Diagnoses Not on filedocumented in this encounter Care Teams Certified Professional Ergonomist Relationship Specialty Start Date End Date [place] [id number] PCP - General Family Medicine 02/23/19 documented as of this encounter
--- OUTSIDE RECORDS SUMMARY | 2024-11-10 06:00 | XMS_ITS | Encounter Summary ---
Author Organization [facility] Healthcare Address [address] [place] [address] Care Team Providers Care Programming Internship Name Role Phone Unavailable Primary Care Provider Unavailabl e Encounter Details Date Type Department Care Team (Late st Contact Info) Description 12/13/2016 10:45 AM INSURANCE RISK MANAGER - 12/13/2016 5:54 PM INSURANCE RISK MANAGER Hospital Encounter [facility] Johnie Qiu MD [address] [place] [address] Other pneumonia, unspecified organism; Pain in throat; Other acute postprocedural pain Social History Tobacco Use Types Packs/Day Years Used Date Smoking Tobacco: Never Assessed Comments Unknown Sex and Gender Information Value Date Recorded Sex Assigned at Not on file Legal Sex Female 1:53 AM INSURANCE RISK MANAGER Gender Identity Female 11/22/2020 12:52 PM INSURANCE RISK MANAGER Sexual Orientation Straight 11/22/2020 12 :52 PM INSURANCE RISK MANAGER documented as of this encounter Plan of Treatment Not on file documented as of this encounter Procedures Procedure Name Priority Date/Time Associated Diagnosis Comments XR CHEST PA LATERAL 2 VIEWS Routine 12/13/2016 9:45 [address]NAGER CT SOFT TISSUE NECK W CONTRAST Routine 12/13/2016 9:21 PM INSURANCE RISK MANAGER BLOOD CULTURE, CDR Routine 12/13/2016 1: 30 PM INSURANCE RISK MANAGER BLOOD CULTURE, CDR Routine 12/13/2016 1: 30 PM INSURANCE RISK MANAGER SERUM CHORIONIC GONADOTROPIN (HCG), QUANTITATIVE Routine 12/13/2016 11:12 AM INSURANCE RISK MANAGER PLASMA COMPREHENSIVE METABOLIC PANEL Routine 12/13/2016 11:12 AM INSURANCE RISK MANAGER BLOOD CELL COUNT (CBC) Routine 7 11:12 AM INSURANCE RISK MANAGER BLOOD CELL MORPHOLOGIC EXAM Routine 12/13/2016 11:12 AM INSURANCE RISK MANAGER DISCHARGE LABORATORY CUMULATIVE REPORT 12/13/2016 documented in this encounter Results * XR Chest Pa Lateral 2 Vw (12/13/2016 9:45 PM INSURANCE RISK MANAGER) Anatomical Region Laterality Modality Body, Chest N/A Radiographic Zaina ging 12/13/2016 9:45 PM INSURANCE RISK MANAGER Narrative 12/14/2016 2:19 PM INSURANCE RISK MANAGER XR Chest 2 Views ?[id number] ??Acc#: ??[id number] DATE OF EXAM: ??Dec 13 2016 CLINICAL HISTORY: Tonsillectomy on Friday. ??Cough. ??Possible pneumonia. RESULT: Erect PA and lateral views are compared to exam on 05 January 2016. Heart size and pulmonary vascularity are normal. ??No infiltrate, mass or pleural effusion is seen. ??Mediastinum is not widened. ??Diaphragm is smooth and costophrenic angles clear. ??Very mild anterior marginal spurring is seen in the lower thoracic spine, as before. IMPRESSION: 1. NO CARDIOPULMONARY ABNORMALITY SEEN. 2. MILD SPURRING IN LOWER THORACIC SPINE. 3. NO SIGNIFICANT CHANGE SINCE 05 JANUARY 2016. Interpreting Physician: ??DR NIA ANDERSON M.D. ??Read on: ??Dec 13 2016 9:26P Transcribed by: ??mrr ??On: Dec 14 2016 10:18A Approved Electronically by: ??JUSTIN Andersen, DR KRAMER ??on: ??Dec 14 2016 2:19P Attending: ??JOHNIE SON Requesting: ??MAJO GUTIERREZ Requesting Fax: ??-- Attending Fax: ??-- Attending ID: ??[id number] Requesting ID: ??[id number] Report To 1 ID: ??[id number] Report To 1 Name: ??JOHNIE SON Report To 1 FAX: ??-- NextGen Order #: ?? Procedure Note Provider, MD Rigo / Sary Hess - 04/02/2017 XR Chest 2 Views [id number] Acc#: [id number] DATE OF EXAM: Dec 13 2016 CLINICAL HISTORY: Tonsillectomy on Friday. Cough. Possible pneumonia. RESULT: Erect PA and lateral views are compared to exam on 05 January 2016. Heartsize and pulmonary vascularity are normal. No infiltrate, mass or pleuraleffusion is seen. Mediastinum is not widened. Diaphragm is smooth andcostophrenic angles clear. Very mild anterior marginal spurring is seenin the lower thoracic spine, as before. IMPRESSION: 1. NO CARDIOPULMONARY ABNORMALITY SEEN. 2. MILD SPURRING IN LOWER THORACIC SPINE. 3. NO SIGNIFICANT CHANGE SINCE 05 JANUARY 2016. Interpreting Physician: DR NIA ANDERSON M.D. Read on: Dec 13 20169:26P Transcribed by: alessandro On: Dec 14 2016 10:18A Approved Electronically by: JUSTIN Andersen, DR KRAMER on: Dec 14 20162:19P Attending: JOHNIE SON Requesting: MAJO GUTIERREZ Requesting Fax: -- Attending Fax: -- Attending ID: [id number] Requesting ID: [id number] Report To 1 ID: [id number] Report To 1 Name: JOHNIE SON Report To 1 FAX: -- NextGen Order #: us Not In File Miscellaneous IMG XR PROCEDURES Jessenia l Result * CT Neck Soft Tissue W Contrast (12/13/2016 9:21 PM INSURANCE RISK MANAGER) Anatomical Region Laterality Modality Head and Neck N/A Computed Tomogra phy 12/13/2016 9:21 PM INSURANCE RISK MANAGER Narrative 12/16/2016 7:47 AM [address] RISK MANAGER CT Soft Tissue Neck W ??[id number] ??Acc#: ??[id number] DATE OF EXAM: ??Dec 13 2016 CLINICAL HISTORY: Throat swelling and pain status post tonsillectomy. RESULT: Protocol: Helically acquired axial images were obtained from the skull base to the lung apices following the administration of 75ml Optiray 320. Findings: The skull base, nasopharyngeal and oropharyngeal structures appear grossly normal. ??The uvula and epiglottis are normal. ??The para and retropharyngeal structures are unremarkable. ??There is no evidence of mass, fluid collection or inflammatory change. ??The major salivary glands and thyroid gland are unremarkable. ??There is no evidence of cervical mass or significant lymphadenopathy. ??Supraclavicular regions are clear. Minimal patchy infiltrate is seen in the right upper lobe, partially visualized. IMPRESSION: 1. NO EVIDENCE OF PARAPHARYNGEAL INFLAMMATORY PROCESS OR MASS. 2. MINIMAL PARTIALLY VISUALIZED PATCHY INFILTRATE IN THE RIGHT UPPER LOBE, POSSIBLY REPRESENTING INFECTIOUS PROCESS. 3. OTHERWISE NORMAL CT OF THE NECK. RESULTS WERE CALLED TO MAJO GUTIERREZ AT 1529 HOURS. Interpreting Physician: ??DR MART ANNE M.D. ??Read on: ??Dec 13 2016 3:30P Transcribed by: ??mrr ??On: Dec 13 2016 ??4:32P Approved Electronically by: ??OMID Andersen, DR CEVALLOS ??on: ??Dec 16 2016 7:47A Attending: ??JOHNIE SON Requesting: ??MAJO GUTIERREZ Requesting Fax: ??-- Attending Fax: ??-- Attending ID: ??[id number] Requesting ID: ??[id number] Report To 1 ID: ??[id number] Report To 1 Name: ??JOHNIE SON Report To 1 FAX: ??-- NextGen Order #: ?? Procedure Note Provider, Rigo, / Sary Hess - 04/02/2017 CT Soft Tissue Neck W [id number] Acc#: [id number] DATE OF EXAM: Dec 13 2016 CLINICAL HISTORY: Throat swelling and pain status post tonsillectomy. RESULT: Protocol: Helically acquired axial images were obtained from the skullbase to the lung apices following the administration of 75ml Pnevvas533. Findings: The skull base, nasopharyngeal and oropharyngeal structuresappear grossly normal. The uvula and epiglottis are normal. The para andretropharyngeal structures are unremarkable. There is no evidence ofmass, fluid collection or inflammatory change. The major salivary glandsand thyroid gland are unremarkable. There is no evidence of cervical massor significant lymphadenopathy. Supraclavicular regions are clear.Minimal patchy infiltrate is seen in the right upper lobe, partiallyvisualized. IMPRESSION: 1. NO EVIDENCE OF PARAPHARYNGEAL INFLAMMATORY PROCESS OR MASS. 2. MINIMAL PARTIALLY VISUALIZED PATCHY INFILTRATE IN THE RIGHT UPPER LOBE,POSSIBLY REPRESENTING INFECTIOUS PROCESS. 3. OTHERWISE NORMAL CT OF THE NECK. RESULTS WERE CALLED TO MAJO GUTIERREZ [id number] HOURS. Interpreting Physician: DR MART ANNE M.D. Read on: Dec 13 20163:30P Transcribed by: alessandro On: Dec 13 2016 4:32P Approved Electronically by: OMID Andersen, DR CEVALLOS on: Dec 16 20167:47A Attending: JOHNIE SON Requesting: MAJO GUTIERREZ Requesting Fax: -- Attending Fax: -- Attending ID: [id number] Requesting ID: [id number] Report To 1 ID: [id number] Report To 1 Name: JOHNIE SON Report To 1 FAX: -- NextGen Order #: us Not In File Miscellaneous IMG CT PROCEDURES Jessenia l Result * Blood culture (12/13/2016 1:30 PM INSURANCE RISK MANAGER) Blood specimen (specimen) (Peripheral) 12/13/2016 1:30 PM INSURANCE RISK MANAGER 12/13/2016 5:09 PM INSURANCE RISK MANAGER Impressions CDR HISTORICAL RESULTS - 12/19/2016 6:23 AM INSURANCE RISK MANAGER Interp Data: 1) If you have questions regarding this blood culture, please contact [facility] at [phone]. 2) Bloodstream infection is likely to be catheter related if the time to culture positivity of a blood culture drawn through the catheter is at least 2.5 hours LESS than the time to positivity of a percutaneous culture of the same volume drawn at the same time, using the same media type. 3) Cultures are monitored continuously. ??The first negative report is issued within 24 hours of receipt in the laboratory. ?? 4) For optimal blood culture results, the recommended volume of blood to collect for pediatric patients is 1 mL of blood per year of patient age, up to 15 mL, per blood culture set. ??For adult patients, 20 mL of blood is recommended per set. ??Failure to collect an optimal blood volume can result in false negative blood cultures. 5) All positive cultures are called per the critical call protocol as soon as they are detected. Current interpretive data was last revised on 16. Narrative CDR HISTORICAL RESULTS - 12/19/2016 6:23 AM INSURANCE RISK MANAGER No growth Historical Provider MD LAB MICROBIOLOGY - GENERA L ORDERABLES Final Result Performing Organization Address [facility] de Phone Number CDR HISTORICAL RESULTS * Blood culture (12/13/2016 1:30 PM INSURANCE RISK MANAGER) Blood specimen (specimen) (Peripheral) 12/13/2016 1:30 PM INSURANCE RISK MANAGER 12/13/2016 5:09 PM INSURANCE RISK MANAGER Impressions CDR HISTORICAL RESULTS - 12/19/2016 6:23 AM INSURANCE RISK MANAGER Interp Data: 1) If you have questions regarding this blood culture, please contact [facility] at [phone]. 2) Bloodstream infection is likely to be catheter related if the time to culture positivity of a blood culture drawn through the catheter is at least 2.5 hours LESS than the time to positivity of a percutaneous culture of the same volume drawn at the same time, using the same media type. 3) Cultures are monitored continuously. ??The first negative report is issued within 24 hours of receipt in the laboratory. ?? 4) For optimal blood culture results, the recommended volume of blood to collect for pediatric patients is 1 mL of blood per year of patient age, up to 15 mL, per blood culture set. ??For adult patients, 20 mL of blood is recommended per set. ??Failure to collect an optimal blood volume can result in false negative blood cultures. 5) All positive cultures are called per the critical call protocol as soon as they are detected. Current interpretive data was last revised on 16. Narrative CDR HISTORICAL RESULTS - 12/19/2016 6:23 AM INSURANCE RISK MANAGER No growth Historical Provider LAB MICROBIOLOGY - GENERA L ORDERABLES Final Result Performing Organization Address [facility] de Phone Number CDR HISTORICAL RESULTS * Serum chorionic gonadotropin (HCG), quantitative (12/13/2016 11:12 AM INSURANCE RISK MANAGER) HCG, quant <5.0 0.0 - 5.0 IUnits/L CDR HISTORICAL RESULTS Comment: Interpretive Data Negative: ? <5 mIU/mL ? Borderline: ??6-25 mIU/mL Positive: ? >25 mIU/mL Approx Gest Age ? Approx HCG Concentration 3 - 4 Weeks ?9 - 130 4 - 5 Weeks ?75 - 2600 5 - 6 Weeks ?850 - 20,800 6 - 7 Weeks ?4000 - 100,200 7 - 12 Weeks ? 53896 - 289,000 16 - 29 Weeks ? 56873 - 137,000 29 - 41 Weeks ? 900 - 60,000 Current interpretive data was last revised on 2015 Serum 12/13/2016 11:1 2 AM INSURANCE RISK MANAGER us Historical Provider LAB BLOOD ORDERABLES Jessenia l Result CDR HISTORICAL RESULTS * (ABNORMAL) Plasma comprehensive metabolic panel (12/13/2016 11:12 AM INSURANCE RISK MANAGER) Sodium 141 135 - 145 mmol/L CDR HISTORICAL RESULTS K, pl 4.0 3.5 - 5.1 mmol/L CDR HISTORICAL RESULTS Chloride 101 97 - 110 mmol/L CDR HISTORICAL RESULTS CO2 30(H) 20 - 28 mmol/L CDR HISTORICAL RESULTS A. gap 10 8 - 16 mmol/L CDR HISTORICAL RESULTS Glucose 93 70 - 199 mg/dl CDR HISTORICAL RESULTS Comment: Interpretive Data Note:The glucose [...] data was last revised on 2014. BUN 11.6 9.0 - 18.0 mg/dl CDR HISTORICAL RESULTS Creatinine 0.58 0.40 - 1.00 mg/dl CDR HISTORICAL RESULTS BUN/creat ratio 20 10 - 20 CDR HISTORICAL RESULTS Calcium 9.5 8.6 - 10.2 mg/dl CDR HISTORICAL RESULTS Protein, sr 7.3 6.0 - 8.4 g/dl CDR HISTORICAL RESULTS Alb 3.8 3.2 - 5.0 g/dl CDR HISTORICAL RESULTS Alk phos 86 70 - 260 Units/L CDR HISTORICAL RESULTS ALT 18 5 - 45 Units/L CDR HISTORICAL RESULTS AST 16 10 - 40 Units/L CDR HISTORICAL RESULTS Bilirubin 0.6 <=1.2 mg/dl CDR HISTORICAL RESULTS Plasma 12/13/2016 11:1 2 AM INSURANCE RISK MANAGER us Historical Provider LAB BLOOD ORDERABLES Jessenia l Result CDR HISTORICAL RESULTS * (ABNORMAL) Blood cell count (CBC) (12/13/2016 11:12 AM INSURANCE RISK MANAGER) WBC 10.0(H) 3.8 - 9.8 K/cumm CDR HISTORICAL RESULTS RBC 4.75 3.90 - 5.00 M/cumm CDR HISTORICAL RESULTS Hgb 12.3 12.1 - 15.1 g/dl CDR HISTORICAL RESULTS Hct 37.3 36.1 - 44.3 % CDR HISTORICAL RESULTS MCV 78.5(L) 80.0 - 100.0 fl CDR HISTORICAL RESULTS MCH 25.9(L) 26.7 - 33.7 pg CDR HISTORICAL RESULTS MCHC 33.0 32.7 - 36.0 g/dl CDR HISTORICAL RESULTS Rdw 13.2 11.5 - 14.6 % CDR HISTORICAL RESULTS Platelets 321 140 - 440 K/cumm CDR HISTORICAL RESULTS MPV 8.6 8.0 - 12.0 fl CDR HISTORICAL RESULTS NRBC 0.0 0.0 - 0.0 % CDR HIST ORICAL RESULTS NRBC, abs 0.00 0.00 - 0.00 K/cumm CDR HISTORICAL RESULTS Blood specimen (specimen) 12/13/2016 11:12 AM INSURANCE RISK MANAGER Historical Provider LAB BLOOD ORDERABLES Jessenia l Result Performing Organization Address City/State/[facility] Co de Phone Number CDR HISTORICAL RESULTS * (ABNORMAL) Blood cell morphologic exam (12/13/2016 11:12 AM INSURANCE RISK MANAGER) Neutrophils 68.9 33.0 - 70.0 % CDR HISTORICAL RESULTS Immature granulocytes 0.3 0.0 - 1.0 % CDR HISTORICAL RESULTS Lymphocytes 24.3 21.0 - 55.0 % CDR HISTORICAL RESULTS Monos 5.9 3.0 - 13.0 % CDR HISTORICAL RESULTS Eosinophils 0.4(L) 2.0 - 12.0 % CDR HISTORICAL RESULTS Basophils 0.2 0.0 - 3.0 % CDR HISTORICAL RESULTS Neutrophils, abs 6.9 1.5 - 9.4 K/cumm CDR HISTORICAL RESULTS Immature granulocyte, abs 0.0 0.0 - 0.2 K/cumm CDR HISTORICAL RESULTS Lymphocytes, abs 2.4 1.0 - 7.2 K/cumm CDR HISTORICAL RESULTS Monocytes, absolute 0.6 0.1 - 1.7 K/cumm CDR HISTORICAL RESULTS Eosinophils, abs 0.0(L) 0.1 - 1.6 K/cumm CDR HISTORICAL RESULTS Basophils, abs 0.0 0.0 - 0.3 K/cumm CDR HISTORICAL RESULTS Blood specimen (specimen) 12/13/2016 11:12 AM INSURANCE RISK MANAGER Historical Provider LAB BLOOD ORDERABLES Jessenia l Result Performing Organization Address City/State/[facility] Co de Phone Number CDR HISTORICAL RESULTS * DISCHARGE LABORATORY CUMULATIVE REPORT (12/13/2016) Narrative 12/13/2016 Ordered by an unspecified provider. Historical Provider LAB BLOOD ORDERABLES Jessenia l Result documented in this encounter Visit Diagnoses Diagnosis Other pneumonia, unspecified organism Pain in throat Throat pain Other acute postprocedural pain documented in this encounter
--- OUTSIDE RECORDS SUMMARY | 2024-11-10 06:00 | XMS_ITS | Encounter Summary ---
Author Organization [facility] Healthcare Address [address] [place] [address] Care Team Providers Care Supervisor Gear Repair Name Role Phone Unavailable Primary Care Provider Unavailabl e Encounter Details Date Type Department Care Team (Late st Contact Info) Description 07/24/2015 8:18 PM CDT - 07/24/2015 10:01 PM CDT Hospital Encounter [facility] Harriett Martinez MD [facility] [place] [address] Contusion of forearm; Pain in joint, forearm; Sprain and strain of elbow and forearm; Fall from other slipping, tripping, or stumbling; Place of occurrence, home Social History Tobacco Use Types Packs/Day Years Used Date Smoking Tobacco: Never Assessed Comments Unknown Sex and Gender Information Value Date Recorded Sex Assigned at Not on file Legal Sex Female 1:53 AM CASH SHORTAGE INVESTIGATOR Gender Identity Female 11/22/2020 12:52 PM CASH SHORTAGE INVESTIGATOR Sexual Orientation Straight 11/22/2020 12 :52 PM CASH SHORTAGE INVESTIGATOR documented as of this encounter Plan of Treatment Not on file documented as of this encounter Procedures Procedure Name Priority Date/Time Associated Diagnosis Comments XR WRIST 3+ VW Routine 07/24/2015 9:30 PM CDT DEXA AXIAL SKELETON BONE DENSITY 1 OR MORE SITES Routine 07/24/2015 9:08 PM CDT documented in this encounter Results * XR Wrist 3+ VW (07/24/2015 9:30 PM CDT) Anatomical Region Laterality Modality N/A Radiographic Zaina ging 07/24/2015 9:30 PM CDT Narrative 07/25/2015 8:57 PM CDT XR Wrist Min 3 Views R ?[id number] ??Acc#: ??[id number] DATE OF EXAM: ??Jul 24 2015 CLINICAL HISTORY: Accidentally tripped over her brother and fell onto her right forearm approximately an hour prior to coming to ER. ??Moderate to severe pain that is aggravated by movement and touch. RESULT: Three views demonstrate incompletely fused growth plates of the distal radius and ulna. ??No fracture, dislocation or bone destruction is seen. IMPRESSION: 1. NORMAL RIGHT WRIST. Interpreting Physician: ??DR NIA ANDERSON M.D. ??Read on: ??Jul 24 2015 10:54P Transcribed by: ??steve ?? On: Jul 25 2015 10:22A Approved Electronically by: ??JUSTIN Andersen, DR KRAMER ??on: ??Jul 25 2015 8:57P Attending: ??HARRIETT MARTINEZ Requesting: ??MAJO GUTIERREZ Requesting Fax: ??-- Attending Fax: ??-- Attending ID: ??[id number] Requesting ID: ??[id number] Report To 1 ID: ??[id number] Report To 1 Name: ??HARRIETT MARTINEZ Report To 1 FAX: ??-- NextGen Order #: Procedure Note Provider, MD Rigo - 03/09/2017 XR Wrist Min 3 Views R [id number] Acc#: [id number] DATE OF EXAM: Jul 24 2015 CLINICAL HISTORY: Accidentally tripped over her brother and fell onto her right forearmapproximately an hour prior to coming to ER. Moderate to severe pain thatis aggravated by movement and touch. RESULT: Three views demonstrate incompletely fused growth plates of the distalradius and ulna. No fracture, dislocation or bone destruction is seen. IMPRESSION: 1. NORMAL RIGHT WRIST. Interpreting Physician: DR NIA ANDERSON M.D. Read on: Jul 24 201510:54P Transcribed by: steve On: Jul 25 2015 10:22A Approved Electronically by: DR NIA ANDERSON M.D. on: Jul 25 20158:57P Attending: HARRIETT MARTINEZ Requesting: MAJO GUTIERREZ Requesting Fax: -- Attending Fax: -- Attending ID: [id number] Requesting ID: [id number] Report To 1 ID: [id number] Report To 1 Name: HARRIETT MARTINEZ Report To 1 FAX: -- NextGen Order #: Historical Provider IMNoemi XR PROCEDURES Final R esult * Dexa Axial Skeleton Bone Density 1 or 2 Site (07/24/2015 9:08 PM CDT) Anatomical Region Laterality Modality Body N/A Radiographic Zaina ging 07/24/2015 9:08 PM CDT Narrative 07/25/2015 8:57 PM CDT XR Forearm R ? [id number] ??Acc#: ??[id number] DATE OF EXAM: ??Jul 24 2015 CLINICAL HISTORY: Accidentally tripped over her brother and fell onto her right forearm approximately an hour prior to coming to ER. ??Moderate to severe pain that is aggravated by movement and touch. RESULT: AP and lateral views from elbow to wrist demonstrate no fracture, dislocation, bone destruction or other bony abnormality. Growth plates of the distal ulnar and radius have not yet completely fused. IMPRESSION: 1. NORMAL RIGHT FOREARM. Interpreting Physician: ??DR NIA ANDERSON M.D. ??Read on: ??Jul 24 2015 10:53P Transcribed by: ??mb ?? On: Jul 25 2015 10:20A Approved Electronically by: ??JUSTIN Andersen, DR KRAMER ??on: ??Jul 25 2015 8:57P Attending: ??HARRIETT MARTINEZ Requesting: ??MAJO GUTIERREZ Requesting Fax: ??-- Attending Fax: ??-- Attending ID: ??[id number] Requesting ID: ??[id number] Report To 1 ID: ??[id number] Report To 1 Name: ??HARRIETT MARTINEZ Report To 1 FAX: ??-- NextGen Order #: Procedure Note ProviderRigo MD - 03/09/2017 XR Forearm R [id number] Acc#: [id number] DATE OF EXAM: Jul 24 2015 CLINICAL HISTORY: Accidentally tripped over her brother and fell onto her right forearmapproximately an hour prior to coming to ER. Moderate to severe pain thatis aggravated by movement and touch. RESULT: AP and lateral views from elbow to wrist demonstrate no fracture,dislocation, bone destruction or other bony abnormality. Growth plates ofthe distal ulnar and radius have not yet completely fused. IMPRESSION: 1. NORMAL RIGHT FOREARM. Interpreting Physician: DR NIA ANDERSON M.D. Read on: Jul 24 201510:53P Transcribed by: steve On: Jul 25 2015 10:20A Approved Electronically by: JUSTIN Andersen, DR KRAMER on: Jul 25 20158:57P Attending: HARRIETT MARTINEZ Requesting: MAJO GUTIERREZ Requesting Fax: -- Attending Fax: -- Attending ID: [id number] Requesting ID: [id number] Report To 1 ID: [id number] Report To 1 Name: HARRIETT MARTINEZ Report To 1 FAX: -- NextGen Order #: Historical Provider MD MIRANDA DXA PROCEDURES Final Result documented in this encounter Visit Diagnoses Diagnosis Contusion of forearm Pain in joint, forearm Sprain and strain of elbow and forearm Fall from other slipping, tripping, or stumbling Place of occurrence, home documented in this encounter
--- OUTSIDE RECORDS SUMMARY | 2024-11-10 06:00 | XMS_ITS | Encounter Summary ---
Author Organization [facility] Healthcare Address [address] [place] [address] Care Team Providers Care Personal Security Specialist Name Role Phone Christine Peterson MD Primary Care Pro vider Encounter Details Date Type Department Care Team (Late st Contact Info) Description 09/05/2017 11:43 AM CDT - 09/05/2017 12:19 PM CDT Emergency [facility] Emergency Department [address] [place] [address] Johnie Savage MD [address] [place] [address] Discharge Disposition: Discharge to home or self care Social History Tobacco Use Types Packs/Day Years Used Date Smoking Tobacco: Never Smokeless Tobacco: Never Comments Unknown Sex and Gender Information Value Date Recorded Sex Assigned at Not on file Legal Sex Female 1:53 AM ASH COLLECTOR Gender Identity Female 11/22/2020 12:52 PM ASH COLLECTOR Sexual Orientation Straight 11/22/2020 12 :52 PM ASH COLLECTOR documented as of this encounter Medications at Time of Discharge FLUoxetine (FLUoxetine) 10 mg capsule take 3 capsule by oral route every day 0 0 03/17/2017 02/23/2019 FLUoxetine (PROzac) 20 mg capsule TK WITH PROZAC 10 MG QD FOR 30 DAYS 3 06/27/2017 02/23/2019 ibuprofen (ADVIL,MOTRIN) 800 mg tablet Take 1 tablet PO BID 60 tablet 2 07/03/2017 02/23/2019 norethindrone-e.e stradiol-iron (JUNE FE 11/22, ,) 1 mg-20 mcg (21)/75 [...] on filedocumented in this encounter Care Teams Personal Security Specialist Relationship Specialty Start Date End Date Christine Peterson MD PCP - General Pediatrics 07/03/17 02/22/19 documented as of this encounter
--- OUTSIDE RECORDS SUMMARY | 2024-11-10 06:00 | XMS_ITS | Encounter Summary ---
Author Organization [facility] Address [address] [place] [address] Care Team Providers Care Social Services Manager Name Role Phone Christine Peterson MD Primary Care Pro vider Encounter Details Date Type Department Care Team (Late st Contact Info) Description 10/08/2017 Telephone [facility] Orthopedics and Sports Medicine [address] [facility] [address] [place] [address] Rufus Oro MD 4 [facility] [address] [place] [address] Social History Tobacco Use Types Packs/Day Years Used Date Smoking Tobacco: Never Smokeless Tobacco: Never Comments Unknown Sex and Gender Information Value Date Recorded Sex Assigned at Not on file Legal Sex Female 1:53 AM STRATEGIES ANALYST Gender Identity Female 11/22/2020 12:52 PM STRATEGIES ANALYST Sexual Orientation Straight 11/22/2020 12 :52 PM STRATEGIES ANALYST documented as of this encounter Miscellaneous Notes * Telephone Encounter - Roma Phillips - 10/08/2017 2:59 PM CST Pts mom is calling and states that her daughter had a mri and she would like to speak to someone about the results. She had the mri Friday at [facility]. She can be reached at [phone] TEGIES ANALYST documented in this encounter Plan of Treatment Not on file documented as of this encounter Visit Diagnoses Not on filedocumented in this encounter Care Teams Social Services Manager Relationship Specialty Start Date End Date Christine Peterson MD PCP - General Pediatrics 07/03/17 02/22/19 documented as of this encounter
--- OUTSIDE RECORDS SUMMARY | 2024-11-10 06:00 | XMS_ITS | Encounter Summary ---
Author Organization [facility] Address [address] [place] [address] Care Team Providers Care Ruching Machine Operator Name Role Phone Uriel Walker MD Primary Care Provider [phone] Reason for Visit * Reason Comments Establish Care Pt here to establish care Encounter Details Date Type Department Care Team (Late st Contact Info) Description 02/23/2019 8:15 AM CDT Office Visit [facility] [address] [address] [place] [phone] [facility] [address] [place] [address] Generalized abdominal pain (Primary Dx); Elevated hemoglobin A1c; Encounter for medical examination to establish care; Refused influenza vaccine; Morbid obesity with BMI of 45.0-49.9, adult (CMS/[facility]) Social History Tobacco Use Types Packs/Day Years Used Date Smoking Tobacco: Never Smokeless Tobacco: Never Comments No Sex and Gender Information Value Date Recorded Sex Assigned at Not on file Legal Sex Female 1:53 AM CONSTRUCTION CODE ADMINISTRATOR Gender Identity Female 11/22/2020 12:52 PM CONSTRUCTION CODE ADMINISTRATOR Sexual Orientation Straight 11/22/2020 12 :52 PM CONSTRUCTION CODE ADMINISTRATOR documented as of this encounter Last Filed Vital Signs Vital Sign Reading Time Taken Comments Blood Pressure 136/78 02/23/2019 8:42 AM CDT Pulse 65 02/23/2019 8:42 AM CDT Temperature 36.5 ??C (97.7 ??F) 02/23/2019 8:42 AM CD T Respiratory Rate 16 02/23/2019 8:42 AM CDT Oxygen Saturation 95% 02/23/2019 8:42 AM CDT Inhaled Oxygen Concentration - - Weight 130.6 kg (288 lb) 02/23/2019 8:42 AM CDT Height 165.7 cm (5' 5.25 ) 02/23/2019 8:42 AM CD T Body Mass Index 47.56 02/23/2019 8:42 AM CDT Body Mass Index Percentile 99.95% 02/23/2019 8:4 2 AM CDT Growth Chart: [facility] (Girls, 2- 20 Years) documented in this encounter Ordered Prescriptions Prescription Sig Dispense Quantity Refills Last Filled Start Date End Date dicyclomine (BENTYL) 20 mg tabletIndications: Generalized abdominal pain Take 1 tablet (20 mg total) by mouth 4 (four) times a day as needed (generalized abd pain) 120 tablet 3 02/23/2019 11/09/2019 documented in this encounter Progress Notes * Lydia Copeland, PASTRYCOOK'S ASSISTANT - 02/23/2019 8:15 AM CDT Images from the original note were not included. [facility] Brandie Torres Chief Complaint. Chief Complaint Patient presents with ??? Establish Care Pt here to establish care HPI. Patient is a 18 y.o. female Pt here to establish care. Former PCP: Dr Christine Peterson (peds) Other MD: saw Dr Deandre Vázquez at [facility] & no addition of medicine. To have her check fsbs. Reviewed diet/nutrition & also had substation operator helper generation appt. Heavy menses. Was prescribed OCP by mixing tank operator but never started. Reviewed labs in [facility] & Care everywhere. ABD PAIN Found to have fatty liver. Was having R sided abd pain. Reviewed labs/ultrasound from [facility] 01/29/19. All negative for gallbladder issues (no stones/wall thickening/duct enlargement). Relates nausea, especially when thinking of food. Relates that pain daily; had initially been every few days. Food choices: no breakfast, school lunch: salad (ham, lettuce, cheese, raisins, croutons, ranch dressing), works at [employer] (6p eats [employer]pirics, 1/2 sweet/regular tea, ice cream). Will occasionallyget grilled chicken wrap, does not eat when she gets home. Dinner at home: meat, mashed potatoes, vegetable. Some cheezits/popcorn snacks. Saw substation operator helper generation at 15 y/o & fall 08/2018. Has poor water intake. Did not sisal picker the dicyclomine but did the zofran. Abdominal Pain This is a new problem. Episode onset: 01/2019. The onset quality is gradual. The problem occurs daily. The problem has been unchanged. The pain is located in the RUQ and right flank. The pain is moderate. The quality of the pain is aching. The abdominal pain does not radiate. Associated symptoms include nausea. Pertinent negatives include no constipation, diarrhea or vomiting. Treatments tried: zofran. did not p/u dicyclomine that ER sent. Prior diagnostic workup includes ultrasound. There is nohistory of abdominal surgery, gallstones or pancreatitis. Past Medical History: Diagnosis Date ??? Fatty liver disease, nonalcoholic 05/03/2016 ??? Seasonal allergies Past Surgical History: Procedure Laterality Date ??? TONSILECTOMY, ADENOIDECTOMY, BILATERAL MYRINGOTOMY AND TUBES ??? TONSILLECTOMY 11/03/2016 Tonsillectomy HOME MEDICATIONS : blood glucose diagnostic (CONTOUR NEXT TEST STRIPS) strip dicyclomine (BENTYL) 20 mg tablet lancets (MICROLET LANCET) misc ondansetron ODT (ZOFRAN-ODT) 4 mg disintegrating tablet dicyclomine (BENTYL) 20 mg tablet FLUoxetine (FLUoxetine) 10 mg capsule FLUoxetine (PROzac) 20 mg capsule ibuprofen (ADVIL,MOTRIN) 800 mg tablet norethindrone-e.estradiol-iron (11/22, ,) 1 mg-20 mcg (21)/75 mg (7) per tablet No Known Allergies Social History Tobacco Use ??? Smoking status: Never Smoker ??? Smokeless tobacco: Never Used Substance Use Topics ??? Alcohol use: Not on file Family History Problem Relation Age of Onset ??? Diabetes Mother Diabetes mellitus; ??? Kidney failure Mother ??? Hypertension Father Hypertension; Review of Systems: Review of Systems HENT: Negative. Respiratory: Negative. Negative for shortness of breath and wheezing. Cardiovascular: Negative. Negative for chest pain, palpitations and leg swelling. Gastrointestinal: Positive for abdominal pain and nausea. Negative for abdominal distention, blood in stool, constipation, diarrhea and vomiting. RUQ pain but negative gallbladder testing. Genitourinary: Negative. Musculoskeletal: Negative. Skin: Negative. Allergic/Immunologic: Positive for environmental allergies. Neurological: Negative. Psychiatric/Behavioral: Negative. BP (!) 136/78 (BP Location: Left arm, Patient Position: Sitting) Pulse 65 Temp 36.5 ??C (97.7 ??F) (Oral) Resp 16 Ht 165.7 cm (5' 5.25 ) Wt 130.6 kg (288 lb) SpO2 95% BMI 47.56 kg/m?? Physical Exam: Physical Exam Constitutional: She is oriented to person, place, and time. She appears well- developed and well-nourished. Morbidly obese HENT: Head: Normocephalic and atraumatic. Right Ear: Hearing, tympanic membrane, external ear and ear canal normal. Tympanic membrane is not erythematous. No middle ear effusion. Left Ear: Hearing, tympanic membrane, external ear and ear canal normal. Tympanic membrane is not erythematous. No middle ear effusion. Nose: Right sinus exhibits no maxillary sinus tenderness and no frontal sinus tenderness. Left sinus exhibits no maxillary sinus tenderness and no frontal sinus tenderness. Mouth/Throat: Uvula is midline, oropharynx is clear and moist and mucous membranes are normal. Eyes: Pupils are equal, round, and reactive to light. Conjunctivae and EOM are normal. Neck: Normal range of motion. Neck supple. No tracheal deviation present. No thyromegaly present. Cardiovascular: Normal rate, regular rhythm and normal heart sounds. Exam reveals no gallop and no friction rub. No murmur heard. Pulmonary/Chest: Effort normal and breath sounds normal. Abdominal: Soft. Normal appearance and bowel sounds are normal. She exhibits no distension. There is no tenderness. There is no rigidity, no rebound, no guarding, no CVA tenderness, no tenderness at McBurney's point and negative Castro's sign. Large, protuberant abdomen. No TTP w/palpation. Musculoskeletal: Normal range of motion. Lymphadenopathy: She has no cervical adenopathy. Neurological: She is alert and oriented to person, place, and time. Skin: Skin is warm and dry. Psychiatric: She has a normal mood and affect. Her behavior is normal. Judgment and thought contentnormal. Nursing note and vitals reviewed. Assessment & Plan: Diagnoses and all orders for this visit: Generalized abdominal pain (Primary) Assessment & Plan: Negative assessment. Reviewed [facility] ER note from [...] whatever food is nearby when hungry. Declines substation operator helper generation. Has seen 2x at [facility]. Will make f/u appt in 1 month. Orders: - dicyclomine (BENTYL) 20 mg tablet; Take 1 tablet (20 mg total) by mouth 4 (four) times a day as needed (generalized abd pain) Elevated hemoglobin A1c Assessment & Plan: Past A1c's: 06/10/18=6.6%, 02/01/19=6.5% Reviewed past labs w/Brandie and her mother Brandi. No medications at this time. Need lifestyle changes: diet & activity. Encounter for medical examination to establish care Assessment & Plan: 1. Eat a healthy diet: focus on lean meats and proteins, more fruits, vegetables and whole grains and low in sugars and fats. Limit red meat and avoid processed meat. 2. Maintain a healthy weight; avoid being overweight. Aim for a normal body mass index (BMI) of 18.5-24.9. Help learning to eat healthier, we can set up appointment with substation operator helper generation/chief nuclear medicine technologist. 3. Have an active lifestyle, strive for 30 minutes of moderate exercise 5 times a week and strengthor resistance training at least twice a week. [...] day for a man. Refused influenza vaccine Assessment & Plan: Strongly encouraged yearly influenza vaccine. Morbid obesity with BMI of 45.0-49.9, adult ([facility]) Assessment & Plan: Reviewed need to lose weight, reviewed health benefits. Reviewed recommendations for daily intake & activity 20-30 minutes/day. Has been only eating 2 meals/day (school lunch & meal at [employer] nightly when working). Stressed dietary changes. Need to incorporate 5-6 small meals/day (graze throughout day) with lean proteins & greatly increased water intake. Discussed protein shakes & protein bars that are low in sugar. Increasing fiber in diet. To make f/u in 1 month. BMI Follow-up includes: exercise counseling and education provided. Body mass index is 47.56 kg/m??. Lydia Copeland NP Cosigned by Uriel Walker MD at 03/17/2019 9:37 AM CDT documented in this encounter Miscellaneous Notes * Assessment & Plan Note - Lydia Copeland NP - 02/23/2019 1:13 PM CDT Associated Problem(s): Elevated hemoglobin A1c (Resolved 06/25/2020) Past A1c's: 06/10/18=6.6%, 02/01/19=6.5% Reviewed past labs w/Brandie and her mother Brandi. No medications at this time. Need lifestyle changes: diet & activity. * Assessment & Plan Note - Lydia Copeland NP - 02/23/2019 1:07 PM CDT Associated Problem(s): Generalized abdominal pain (Resolved 02/17/2020) Negative assessment. Reviewed [facility] ER note from [...] whatever food is nearby when hungry. Declines substation operator helper generation. Has seen 2x at [facility]. Will make f/u appt in 1 month. * Assessment & Plan Note - Lydia Copeland NP - 02/23/2019 1:06 PM CDT Associated Problem(s): Refused influenza vaccine (Resolved 02/16/2020) Strongly encouraged yearly influenza vaccine. * Assessment & Plan Note - Lydia Copeland NP - 02/23/2019 1:02 PM CDT Associated Problem(s): Morbid obesity with BMI of 50.0-59.9, adult ([facility]) Reviewed need to lose weight, reviewed health benefits. Reviewed recommendations for daily intake & activity 20-30 minutes/day. Has been only eating 2 meals/day (school lunch & meal at [employer] nightly when working). Stressed dietary changes. Need to incorporate 5-6 small meals/day (graze throughout day) with lean proteins & greatly increased water intake. Discussed protein shakes & protein bars that are low in sugar. Increasing fiber in diet. To make f/u in 1 month. * Assessment & Plan Note - Lydia Copeland NP - 02/23/2019 12:57 PM CDT Associated Problem(s): Encounter for medical examination to establish care (Resolved 02/16/2020) 1. Eat a healthy diet: focus on lean meats and proteins, more fruits, vegetables and whole grains and low in sugars and fats. Limit red meat and avoid processed meat. 2. Maintain a healthy weight; avoid being overweight. Aim for a normal body mass index (BMI) of 18.5-24.9. Help learning to eat healthier, we can set up appointment with substation operator helper generation/chief nuclear medicine technologist. 3. Have an active lifestyle, strive for 30 minutes of moderate exercise 5 times a week and strengthor resistance training at least twice a week. [...] 2 drinks per day for a man. documented in this encounter Plan of Treatment Not on file documented as of this encounter Visit Diagnoses Diagnosis Generalized abdominal pain- Primary Abdominal pain, generalized Elevated hemoglobin A1c Other abnormal blood chemistry Encounter for medical examination to establish care Refused influenza vaccine Morbid obesity with BMI of 45.0-49.9, adult (HCC) documented in this encounter Discontinued Medications Medication Sig Discontinue Reason Start Date End Da te FLUoxetine (FLUoxetine) 10 mg capsule take 3 capsule by oral route every day 03/17/2017 02/23/2019 norethindrone-e.estradio l-iron (,) 1 mg-20 mcg (21)/75 mg (7) per tablet take 1 tablet by oral route every day 03/17/2017 02/23/2019 FLUoxetine (PROzac) 20 mg capsule TK WITH PROZAC 10 MG QD FOR 30 DAYS 06/27/2017 02/23/2019 dicyclomine (BENTYL) 20 mg tablet Take 1 tablet (20 mg total) by mouth 2 (two) times a day Reorder 01/29/2019 02/23/2019 ibuprofen (ADVIL,MOTRIN) 800 mg tablet Take 1 tablet PO BID 07/03/2017 02/23/2019 documented as of this encounter Care Teams Ruching Machine Operator Relationship Specialty Start Date End Date Uriel Walker MD [address] [place] [address] PCP - General Family Medicine 02/23/19 documented as of this encounter
--- OUTSIDE RECORDS SUMMARY | 2024-11-10 06:00 | XMS_ITS | Encounter Summary ---
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) ([facility]/HCC); Hypertensive chronic kidney disease with stage 1 through stage 4 chronic kidney disease, or unspecified chronic kidney disease; Chronic kidney disease, stage III (moderate); Acute kidney failure (CMS/HCC) Social History Tobacco Use Types Packs/Day Years Used Date Smoking Tobacco: Never Assessed Comments Unknown Sex and Gender Information Value Date Recorded Sex Assigned at Not on file Legal Sex Female 1:53 AM RIVET HEATER GAS Gender Identity Female 11/22/2020 12:52 PM RIVET HEATER GAS Sexual Orientation Straight 11/22/2020 12 :52 PM RIVET HEATER GAS documented as of this encounter Miscellaneous Notes * Op Note - ProviderRigo MD - 12/11/2016 12:00 AM CST OPERATIVE REPORT Patient: BRANDIE MARIE Service Date: 12/11/2016 Account: [id number] Room No: 175-10 : 2000 Patient Type: SDS Attend.: Gulshan Yun M.D. Admit Date: 12/11/2016 Surg.: Gulshan Yun M.D. Disch. Date: 12/11/2016 SURGEON Gulshan Yun MD PREOPERATIVE DIAGNOSIS Chronic tonsillitis. POSTOPERATIVE DIAGNOSIS Chronic tonsillitis. PROCEDURE Tonsillectomy. ANESTHESIA General. PROCEDURE IN DETAIL The patient in the supine position and after adequate level of anesthesia, mouth gag inserted, tonsils visualized. Left tonsil was grasped with a tenaculum, stripped from the tonsillar fossa with Bovie current and suction cautery. The right tonsil was removed in a similar fashion, grasped with the tenaculum, stripped from the tonsillar fossa with Bovie current and suction cautery. The nasopharynx was visualized. There were a minimal amount of adenoids and they were not removed. The larger vessel were re-cauterized in the tonsillar fossa. There was no further bleeding and the patient was awakened and taken to the recovery room in satisfactory condition. Electronically Authenticated by: Gulshan Yun MD On 01/08/2017 01:01 PM [employer] Gulshan Yun M.D. /zander TD: 12/11/2016 12:32 documented in this encounter Plan of Treatment Not on file documented as of this encounter Procedures Procedure Name Priority Date/Time Associated Diagnosis Comments URINE CHORIONIC GONADOTROPIN (HCG) Routine 12/11/2016 7:12 AM [employer] DISCHARGE LABORATORY CUMULATIVE REPORT 12/11/2016 SURGICAL PATHOLOGY 12/11/2016 documented in this encounter Results * Urine chorionic gonadotropin (HCG) (12/11/2016 7:12 AM [employer]) HCG, ur Negative Negative CDR HISTOR ICAL RESULTS Urine 12/11/2016 7:12 AM [employer] us Historical Provider LAB BLOOD ORDERABLES Jessenia l Result CDR HISTORICAL RESULTS * DISCHARGE LABORATORY CUMULATIVE REPORT (12/11/2016) Narrative 12/11/2016 Ordered by an unspecified provider. Result [facility] Provider LAB BLOOD ORDERABLES Jessenia l Result * Surgical pathology (12/11/2016) Narrative 12/11/2016 Ordered by an unspecified provider. [facility] Provider LAB PATHOLOGY ORDERABLES Final Result documented in this encounter Visit Diagnoses Diagnosis Chronic tonsillitis Other specified anxiety disorders Gastro-esophageal reflux disease without esophagitis Type 1 diabetes mellitus with diabetic chronic kidney disease (CODE) Hypertensive chronic kidney disease with stage 1 through stage 4 chronic kidney disease, or unspecified chronic kidney disease Chronic kidney disease, stage III (moderate) (HCC) Chronic kidney disease, Stage III (moderate) Acute kidney failure (HCC) Acute kidney failure, unspecified documented in this encounter
--- OUTSIDE RECORDS SUMMARY | 2024-11-10 06:00 | XMS_ITS | Encounter Summary ---
Author Organization [facility] Healthcare Address [address] [place] [address] Care Team Providers Care Floor Helper Name Role Phone Unavailable Primary Care Provider Unavailabl e Encounter Details Date Type Department Care Team (Late st Contact Info) Description 11/12/2015 12:37 PM [employer] - 11/12/2015 1:50 PM [employer] Hospital Encounter [facility] Meliza Cabello MD [address] [facility] [place] [address] Open wound of left upper arm; Exposure to other specified factors, initial encounter; Unspecified place or not applicable Social History Tobacco Use Types Packs/Day Years Used Date Smoking Tobacco: Never Assessed Comments Unknown Sex and Gender Information Value Date Recorded Sex Assigned at Not on file Legal Sex Female 1:53 AM MIXER [employer] Gender Identity Female 11/22/2020 12:52 PM [employer] Sexual Orientation Straight 11/22/2020 12 :52 PM MIXER [employer]ODU[employer] documented as of this encounter Plan of Treatment Not on file documented as of this encounter Visit Diagnoses Diagnosis Open wound of left upper arm Exposure to other specified factors, initial encounter Unspecified place or not applicable documented in this encounter
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
--- OUTSIDE RECORDS SUMMARY | 2024-11-10 06:00 | XMS_ITS | Encounter Summary ---
Author Organization [facility] Address [address] [place] [id number] Care Team Providers Care Woodworking Machine Offbearer Name Role Phone Unavailable Primary Care Provider Unavailabl e Encounter Details Date Type Department Care Team (Late st Contact Info) Description 08/19/2016 3:37 PM CDT - 08/19/2016 4:54 PM CDT Hospital Encounter [facility] Nicolas Fletcher MD [address] [place] [address] [id number] Procedure and treatment not carried out due to patient leaving prior to being seen by health care provider Social History Tobacco Use Types Packs/Day Years Used Date Smoking Tobacco: Never Assessed Comments Unknown Sex and Gender Information Value Date Recorded Sex Assigned at Not on file Legal Sex Female 1:53 AM INVESTIGATION DIVISION SERGEANT Gender Identity Female 11/22/2020 12:52 PM INVESTIGATION DIVISION SERGEANT Sexual Orientation Straight 11/22/2020 12 :52 PM INVESTIGATION DIVISION SERGEANT documented as of this encounter Plan of Treatment Not on file documented as of this encounter Procedures Procedure Name Priority Date/Time Associated Diagnosis Comments SERUM LIPASE Routine 08/19/2016 4:00 PM CDT SERUM AMYLASE Routine 08/19/2016 4:00 PM CDT PLASMA COMPREHENSIVE METABOLIC PANEL Routine 08/19/2016 4:00 PM CDT BLOOD CELL COUNT (CBC) Routine 6 4:00 PM CDT BLOOD CELL MORPHOLOGIC EXAM Routine 08/19/2016 4:00 PM CDT URINE (AEROBIC) CULTURE, CDR Routine 08/19/2016 3:50 PM CDT URINALYSIS Routine 08/19/2016 3:50 PM CDT DISCHARGE LABORATORY CUMULATIVE REPORT 08/19/2016 documented in this encounter Results * (ABNORMAL) Plasma comprehensive metabolic panel (08/19/2016 4:00 PM CDT) Sodium 140 135 - 145 mmol/L CDR HISTORICAL RESULTS K, pl 3.9 3.5 - 5.1 mmol/L CDR HISTORICAL RESULTS Chloride 102 97 - 110 mmol/L CDR HISTORICAL RESULTS CO2 29(H) 20 - 28 mmol/L CDR HISTORICAL RESULTS A. gap 13 8 - 16 mmol/L CDR HISTORICAL RESULTS Glucose 94 70 - 199 mg/dl CDR HISTORICAL RESULTS [...] data was last revised on 2014. BUN 11.2 9.0 - 18.0 mg/dl CDR HISTORICAL RESULTS Creatinine 0.56 0.40 - 1.00 mg/dl CDR HISTORICAL RESULTS BUN/creat ratio 20 10 - 20 CDR HISTORICAL RESULTS Calcium 9.4 8.6 - 10.2 mg/dl CDR HISTORICAL RESULTS Protein, sr 7.0 6.0 - 8.4 g/dl CDR HISTORICAL RESULTS Alb 4.0 3.2 - 5.0 g/dl CDR HISTORICAL RESULTS Alk phos 105(L) 130 - 550 Units/L CDR HISTORICAL RESULTS ALT 18 5 - 45 Units/L CDR HISTORICAL RESULTS AST 14 10 - 40 Units/L CDR HISTORICAL RESULTS Bilirubin 0.3 <=1.2 mg/dl CDR HISTORICAL RESULTS Plasma 08/19/2016 4:00 PM CDT us Historical Provider LAB BLOOD ORDERABLES Jessenia l Result CDR HISTORICAL RESULTS * Serum lipase (08/19/2016 4:00 PM CDT) Lip 16 10 - 70 Units/L CDR HISTORICAL RESULTS Serum 08/19/2016 4:00 PM CDT Historical Provider LAB BLOOD ORDERABLES Jessenia eldridge Result Performing Organization Address [facility] Co de Phone Number CDR HISTORICAL RESULTS * (ABNORMAL) Blood cell count (CBC) (08/19/2016 4:00 PM CDT) WBC 8.8 3.8 - 9.8 K/cumm CDR HISTORICAL RESULTS RBC 4.70 3.90 - 5.00 M/cumm CDR HISTORICAL RESULTS Hgb 12.3 12.1 - 15.1 g/dl CDR HISTORICAL RESULTS Hct 37.3 36.1 - 44.3 % CDR HISTORICAL RESULTS MCV 79.4(L) 80.0 - 100.0 fl CDR HISTORICAL RESULTS MCH 26.2(L) 26.7 - 33.7 pg CDR HISTORICAL RESULTS MCHC 33.0 32.7 - 36.0 g/dl CDR HISTORICAL RESULTS Rdw 13.0 11.5 - 14.6 % CDR HISTORICAL RESULTS Platelets 318 140 - 440 K/cumm CDR HISTORICAL RESULTS MPV 8.6 8.0 - 12.0 fl CDR HISTORICAL RESULTS NRBC 0.0 0.0 - 0.0 % CDR HIST ORICAL RESULTS NRBC, abs 0.00 0.00 - 0.00 K/cumm CDR HISTORICAL RESULTS Blood specimen (specimen) 08/19/2016 4:00 PM CDT Historical Provider LAB BLOOD ORDERABLES Jessenia eldridge Result Performing Organization Address City/[facility]/ZIP Co de Phone Number CDR HISTORICAL RESULTS * Serum amylase (08/19/2016 4:00 PM CDT) Anastasia, pl 25 15 - 130 Units/L CDR HISTORICAL RESULTS Serum 08/19/2016 4:00 PM CDT us Historical Provider MD LAB BLOOD ORDERABLES Jessenia eldridge Result Performing Organization Address [facility] de Phone Number CDR HISTORICAL RESULTS * (ABNORMAL) Blood cell morphologic exam (08/19/2016 4:00 PM CDT) Neutrophils 72.0(H) 33.0 - 70.0 % CDR HISTORICAL RESULTS Immature granulocytes 0.2 0.0 - 1.0 % CDR HISTORICAL RESULTS Lymphocytes 22.5 21.0 - 55.0 % CDR HISTORICAL RESULTS Monos 4.8 3.0 - 13.0 % CDR HISTORICAL RESULTS Eosinophils 0.3(L) 2.0 - 12.0 % CDR HISTORICAL RESULTS Basophils 0.2 0.0 - 3.0 % CDR HISTORICAL RESULTS Neutrophils, abs 6.3 1.5 - 9.4 K/cumm CDR HISTORICAL RESULTS Immature granulocyte, abs 0.0 0.0 - 0.2 K/cumm CDR HISTORICAL RESULTS Lymphocytes, abs 2.0 1.0 - 7.2 K/cumm CDR HISTORICAL RESULTS Monocytes, absolute 0.4 0.1 - 1.7 K/cumm CDR HISTORICAL RESULTS Eosinophils, abs 0.0(L) 0.1 - 1.6 K/cumm CDR HISTORICAL RESULTS Basophils, abs 0.0 0.0 - 0.3 K/cumm CDR HISTORICAL RESULTS Blood specimen (specimen) 08/19/2016 4:00 PM CDT [facility] Provider LAB BLOOD ORDERABLES Jessenia eldridge Result Performing Organization Address [facility] de Phone Number CDR HISTORICAL RESULTS * Urinalysis (08/19/2016 3:50 PM CDT) Color, ur Yellow Yellow CDR HISTOR ICAL RESULTS Clarity, ur Clear Clear CDR HIST ORICAL RESULTS Specific gravity, ur 1.022 1.003 - 1.030 CDR HISTORICAL RESULTS Comment:Normal Ranges: 1.003 -1.030 pH, ur 6.0 4.5 - 8.0 CDR HISTOR ICAL RESULTS Comment:Normal ranges: 4.5-8 .0 Protein, ur, quant Negative Negative mg/dl CDR HISTORICAL RESULTS Glucose, ur, quant Negative Negative mg/dl CDR HISTORICAL RESULTS Ketones, ur Negative Negative CDR HIST ORICAL RESULTS Bilirubin, ur Negative Negative CDR HI STORICAL RESULTS U Blood Negative Negative CDR HISTOR ICAL RESULTS Urobilinogen, quant, ur 0.2 0.2 - 1.0 Amisha Units/dl CDR HISTORICAL RESULTS Comment:Normal Ranges: 0.2-1 .0 EU/dL Nitrites, ur Negative Negative CDR HIS TORICAL RESULTS Leukocyte esterase, ur Negative Negative CDR HISTORICAL RESULTS Urine 08/19/2016 3:50 PM CDT Historical Provider MD LAB BLOOD ORDERABLES Jessenia l Result Performing Organization Address [facility] de Phone Number CDR HISTORICAL RESULTS * Urine (aerobic) culture (08/19/2016 3:50 PM CDT) Urine (Unknown) 08/19/2016 3 :50 PM CDT 08/19/2016 6:41 PM CDT Result [facility] Provider LAB MICROBIOLOGY - GENERA L ORDERABLES Final Result Performing Organization Address [facility] Co de Phone Number CDR HISTORICAL RESULTS * DISCHARGE LABORATORY CUMULATIVE REPORT (08/19/2016) Narrative 08/19/2016 Ordered by an unspecified provider. Historical Provider LAB BLOOD ORDERABLES Jessenia l Result documented in this encounter Visit Diagnoses Diagnosis Procedure and treatment not carried out due to patient leaving prior to being seen by health care provider documented in this encounter
--- OUTSIDE RECORDS SUMMARY | 2024-11-10 06:05 | XMS_ITS | Encounter Summary ---
Author Organization [facility] Address [address] [place]: Epic Prelude ADT [place] [address] Care Team Providers Care Biomedical Technician Name Role Phone Unavailable Primary Care Provider Unavailabl e Encounter Details Date Type Department Care Team (Latest Contact Info) Description 03/20/2022 Travel Social History Tobacco Use Types Packs/Day [...] suspected to have Coronavirus/COVID-19? No / Unsure 03/20/2022 9:21 AM CDT documented as of this encounter Plan of Treatment Not on file documented as of this encounter Visit Diagnoses Not on filedocumented in this encounter
--- OUTSIDE RECORDS SUMMARY | 2024-11-10 06:05 | XMS_ITS | Encounter Summary ---
Author Organization [facility] Address [address] [place]: Epic Prelude ADT [place] [address] Care Team Providers Care Book Mender Name Role Phone Unavailable Primary Care Provider Unavailabl e Encounter Details Date Type Department Care Team (Latest Contact Info) Description 03/21/2022 Travel Social History Tobacco Use Types Packs/Day [...] suspected to have Coronavirus/COVID-19? No / Unsure 03/21/2022 10:23 AM CDT documented as of this encounter Plan of Treatment Not on file documented as of this encounter Visit Diagnoses Not on filedocumented in this encounter
--- OUTSIDE RECORDS SUMMARY | 2024-11-10 06:05 | XMS_ITS | Encounter Summary ---
Author Organization [facility] Address 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 Name Role Phone Unavailable Primary Care Provider Unavailabl e Reason for Referral * Radiology Services (Routine) - Closed Specialty Diagnoses / Procedures Referred By Geraldo low Referred To Contact Diagnoses Encounter for screening for malformation Late care affecting in second trimester History of gestational diabetes Procedures US OB DETAIL SINGLE GEST Rylee Mendenhall MD [address] [phone] Referral ID Status Reason Start Date Expiration Date Visits Re quested Visits Authorized [id number] Closed 03/20/2022 04/18/2022 1 1 Reason for Visit * Radiology Services (Routine) - Closed Specialty Diagnoses / Procedures Referred By Geraldo low Referred To Contact Diagnoses Encounter for screening for malformation Late care affecting in second trimester History of gestational diabetes Procedures US OB DETAIL SINGLE GEST Rylee Mendenhall MD [address] [address] Referral ID Status Reason Start Date Expiration Date Visits Re quested Visits Authorized [id number] Closed 03/20/2022 04/18/2022 1 1 Encounter Details Date Type Department Care Team (Latest Contact Info) Description 03/20/2022 2:00 PM CDT - 03/20/2022 11:59 PM CDT Hospital Encounter [facility] Maternal and Health [facility] [address] [place] [id number] Rylee Pereyra MD [address] [address] Discharge Disposition: Home or Self Care Social [...] Name Priority Date/Time Associated Diagnosis Comments US OB DETAIL SINGLE GEST Routine 03/20/2022 3:16 PM CDT Encounter for screening for malformation Late care affecting in second trimester History of gestational diabetes documented in this encounter Results * US OB DETAIL SINGLE GEST (03/20/2022 3:16 PM CDT) Anatomical Region Laterality Modality Pelvis Ultrasound 03/20/2022 2:22 PM CDT Narrative 03/20/2022 3:19 PM CDT STL COMP ----- Pat. Name: BRANDIE TORRES Study Date: 03/20/2022 2:22pm Pat. NO: [id number] Referring ??MD: RYLEE PEREYRA MD Site: [place] [facility] Proposals Coordinator: Rosalie Sam : 2000 Age: 21 ----- INDICATION ----- Anatomy Survey ? No genetic testing Late Care Family History of Congenital Heart Defect, ? FOB- Born with HLHS Suspected in Fetus Personal History of Gestational Diabetes ? Failed 1 hour GTT Personal History of Other Complications ?History of GHTN, Induced at 37 weeks ? Close interval 07/2021 Anxiety, Maternal ?Zoloft Maternal Obesity (BMI>40) Complicating CODING ----- Diagnoses ? Z3A.27: Weeks of gestation ?Z87.59: Personal history of other complications of ?Z86.32: Personal history of gestational diabetes ?O35.2XX0: Maternal care for (suspected) hereditary disease in fetus ?O09.32: Supervision of with insufficient care ?Z36.3: Encounter for screening for malformations ?O99.212: Obesity complicating ?O99.342: Other mental disorders complicating Procedures ?37112: Ultrasound, uterus, real time with image documentation, and maternal evaluation ?plus detailed anatomic examination, transabdominal approach HISTORY ----- OB History ? 2. Para 1 ?Walter children born living (T) 1 ?T1L1 MATERNAL ASSESSMENT ----- Physical Exam ? Weight 134 kg. BMI 49.09 kg/m?? METHOD ----- Transabdominal ultrasound examination ----- Walter . Number of fetuses: 1 DATING ----- Method of dating: based on stated KYLEE GA by prior assessment 27 w + 2 d KYLEE by prior assessment: 06/17/2022 Ultrasound examination on: 03/20/2022 GA by U/S based upon: AC, BPD, EFW, Femur, HC GA by U/S 26 w + 2 d KYLEE by U/S: 06/24/2022 Assigned: based on stated KYLEE, selected on 03/20/2022 Assigned GA 27 w + 2 d Assigned KYLEE: 06/17/2022 BIOMETRY ----- BPD ?61.8 ? mm ? 25w 1d ? 1% ?Hadlock HC ? 240.3 ?mm ? 26w 1d ? 3% ?Hadlock Cerebellum tr ?26.8 ? mm ? 25w 1d ? 13% ?Dago AC ? 232.4 ?mm ? 27w 4d ? 51% ?Hadlock Femur ?47.3 ? mm ? 25w 6d ? 5% ?Hadlock Humerus ?41.1 ? mm ? 24w 6d ? 1% ?Johnie HC / AC ?1.03 ?12% ? Nicolaides Weight Calculation: EFW ?966 ? g ?26w 3d ?18% ?Hadlock EFW (lb,oz) ?2 lb 2 ?oz EFW by ?Hadlock ([id number]) Head / Face / Neck Biometry: Cephalic index ? 0.70 ? <1% ?Nicolaides Dining Room Maid ? 4.4 ? mm CM ? 8.6 ? mm ? 93% ?Nicolaides Outer IOD ? 39.9 ? mm ? 25w 2d ?3% ? Johnie Extremities / Bony Struc Biometry: FL / BPD ?0.77 FL / HC ? 0.20 FL / AC ? 0.20 Tibia ? 40.7 ? mm ? 25w 4d ?6% ? Johnie GENERAL EVALUATION ----- Cardiac activity present. FHR 135 bpm. movements: present. Presentation: breech Placenta: Placental site: anterior Umbilical cord: Cord vessels: 3 vessel cord. Insertion site: Not well visualized Amniotic fluid: Amount of AF: normal amount. MVP 5.4 cm. KAROL 12.8 cm. Q1 4.4 cm, Q2 3.0 cm, Q3 0.0 cm, Q4 5.4 cm ANATOMY ----- The following structures appear normal: Head / Neck ? Cranium. Lateral ventricles. Choroid plexus. Midline falx. Cavum septi pellucidi. Cerebellum. Cisterna ?magna. Thalami. Face ?Lips. Profile. Nose. Orbits. Heart / Thorax ?RVOT view. LVOT view. 3-vessel view. 5-cdccak-tllzoaz view. Situs. Aortic arch view. Ductal arch view. ?Superior vena cava. Inferior vena cava. High short axis view. Cardiac rhythm. ?Diaphragm. Abdomen ? Abdominal wall. Stomach. Kidneys. Bladder. Spine ? Cervical spine. Thoracic spine. Lumbar spine. Sacral spine. Extremities / ? Arms. Legs. Right foot. Left foot. Skeleton The following structures could not be adequately visualized: Face ?Palate. Heart / Thorax ?4-chamber view. Extremities / ? Right hand. Left hand. Skeleton sex: female. MATERNAL STRUCTURES ----- Right Ovary ? Suboptimal Left Ovary ?Suboptimal GROWTH OVERVIEW ----- Exam date ? GA ?BPD (mm) ?HC (mm) ? AC (mm) ? FL (mm) ? HL (mm) ? EFW (g) 03/20/2022 ?27w 2d ?61.8 ?1% ?240.3 ? 3% ?232.4 ?51% ?47.3 ?5% ?41.1 ?1% ?966 ? 18% COMMENT ----- Patient's name and date of were verified by the sales estimator before the exam IMPRESSION ----- 1. Single living fetus with a gestational age of 27w 2d based on the reported clinical dates. 2. Current growth parameters are consistent with the stated EDC. The size is normal at the 18% (966 g). 3. Detailed evaluation was performed and no structural abnormalities are noted. No gross structural abnormalities note. Suboptimal visualization secondary to maternal acoustics, positioning and advanced gestational age. No overt markers for aneuploidy identified. - suboptimal views of the cardiac 4CH, palate and hands. 4. The amniotic fluid is normal for gestational age (5.4 cm, AF 12.8cm). 5. Placenta is anterior. No previa or low lying placenta noted. The placental cord insertion is not well visualized. Recommendations: - Recommend interval US in 2-4 weeks to complete the anatomic survey. Thank you for allowing us to participate in the care of this patient. Procedure Note Amber Lane MD - 03/20/2022 STL COMP ----- Pat. Name:Maryellen TORRES Date:03/20/2022 2:22pm Pat. NO: [id number] MD:RYLEE PEREYRA MD [facility] Sam :2000Age:21 ----- INDICATION ----- Anatomy Survey No genetic testing Late Care Family History of Congenital Heart Defect, FOB- Born with HLHS Suspected in Fetus Personal History of Gestational Diabetes Failed 1 hour GTT Personal History of Other Complications History of GHTN,Induced at 37 weeks Close intervalpregnancy 07/2021 Anxiety, Maternal Zoloft Maternal Obesity (BMI>40) Complicating CODING ----- Diagnoses Z3A.27: Weeks of gestation Z87.59: Personal history of other complications ofpregnancy Z86.32: Personal history of gestational diabetes O35.2XX0: Maternal care for (suspected) hereditarydisease in fetus O09.32: Supervision of with insufficientantenatal care Z36.3: Encounter for screening formalformations O99.212: Obesity complicating O99.342: Other mental disorders complicatingpregnancy Procedures 26419: Ultrasound, uterus, real time withimage documentation, and maternal evaluation plus detailed anatomic examination,transabdominal approach HISTORY ----- OB History 2. Para 1 Walter children born living (T) 1 T1L1 MATERNAL ASSESSMENT ----- Physical Exam Weight 134 kg. BMI 49.09 kg/m?? METHOD ----- Transabdominal ultrasound examination ----- Walter . Number of fetuses: 1 DATING ----- Method of dating:based on stated KYLEE GA by prior [id number] w + 2 d KYLEE by prior assessment:06/17/2022 Ultrasound examination on:03/20/2022 GA by U/S based upon:AC, BPD, EFW, Femur, HC GA by U/S26 w + 2 d KYLEE by U/S:06/24/2022 Assigned:based on stated KYLEE, selected on 03/20/2022 Assigned GA27 w + 2 d Assigned KYLEE:06/17/2022 BIOMETRY ----- BPD 61.8 mm 25w 1d1% Hadlock HC 240.3 mm 26w 1d3% Hadlock Cerebellum tr 26.8 mm 25w 1d13% Loza AC 232.4 mm 27w 4d51% Hadlock Femur 47.3 mm 25w 6d5% Hadlock Humerus 41.1 mm 24w 6d1% Johnie HC / AC 1.03 12%Nicolaides Weight Calculation: EFW 966 g 26w 3d 18%Hadlock EFW (lb,oz) 2 lb 2 oz EFW by Hadlock ([id number]) Head / Face / Neck Biometry: Cephalic index 0.70 <1%Nicolaides Dining Room Maid 4.4 mm CM 8.6 mm 93%Nicolaides Outer IOD 39.9 mm 25w 2d 3%Johnie Extremities / Bony Struc Biometry: FL / BPD 0.77 FL / HC 0.20 FL / AC 0.20 Tibia 40.7 mm 25w 4d 6%Johnie GENERAL EVALUATION ----- Cardiac activity present. FHR 135 bpm. movements: present.Presentation: breech Placenta: Placental site: anterior Umbilical cord: Cord vessels: 3 vessel cord. Insertion site: Not wellvisualized Amniotic fluid: Amount of AF: normal amount. MVP 5.4 cm. KAROL 12.8 cm. Q14.4 cm, Q2 3.0 cm, Q3 0.0 cm, Q4 5.4 cm ANATOMY ----- The following structures appear normal: Head / Neck Cranium. Lateral ventricles. Choroid plexus.Midline falx. Cavum septi pellucidi. Cerebellum. Cisterna magna. Thalami. Face Lips. Profile. Nose. Orbits. Heart / Thorax RVOT view. LVOT view. 3-vessel view.9-npizzx-dujhtwv view. Situs. Aortic arch view. Ductal arch view. Superior vena cava. Inferior vena cava. High shortaxis view. Cardiac rhythm. Diaphragm. Abdomen Abdominal wall. Stomach. Kidneys. Bladder. Spine Cervical spine. Thoracic spine. Lumbar spine.Sacral spine. Extremities / Arms. Legs. Right foot. Left foot. Skeleton The following structures could not be adequately visualized: Face Palate. Heart / Thorax 4-chamber view. Extremities / Right hand. Left hand. Skeleton sex: female. MATERNAL STRUCTURES ----- Right Ovary Suboptimal Left Ovary Suboptimal GROWTH OVERVIEW ----- Exam date GA BPD (mm) HC (mm) AC (mm) FL(mm) HL (mm) EFW (g) 03/20/2022 27w 2d 61.8 1% 240.3 3% 232.4 51% 47.35% 41.1 1% 966 18% COMMENT ----- Patient's name and date of were verified by the sales estimator beforethe exam IMPRESSION ----- 1. Single living fetus with a gestational age of 27w 2d based on thereported clinical dates. 2. Current growth parameters are consistent with the stated EDC. The fetalsize is normal at the 18% (966 g). 3. Detailed evaluation was performed and no structural abnormalitiesare noted. No gross structural abnormalities note. Suboptimal visualization secondary to maternal acoustics, fetalpositioning and advanced gestational age. No overt markers for aneuploidy identified. - suboptimal views of the cardiac 4CH, palate and hands. 4. The amniotic fluid is normal for gestational age (5.4 cm, AF 12.8cm). 5. Placenta is anterior. No previa or low lying placenta noted. Theplacental cord insertion is not well visualized. Recommendations: - Recommend interval US in 2-4 weeks to complete the anatomicsurvey. Thank you for allowing us to participate in the care of this patient. Rylee Pereyra MD US ORDERABLES documented in this encounter Visit Diagnoses Diagnosis Encounter for screening for malformation Late care affecting in second trimester History of gestational diabetes Personal history of gestational diabetes documented in this encounter
--- OUTSIDE RECORDS SUMMARY | 2024-11-10 06:05 | XMS_ITS | Clinical Summary ---
Author Organization [facility] Address [address] [place] [phone] Phone Care Team Providers Care Communications Instructor Name Role Phone Unavailable Primary Care Provider Unavailabl e Social History Tobacco Use Types Packs/Day Years Used Date Smoking Tobacco: Never Assessed Sex and Gender Information Value Date Recorded Sex Assigned at Not on file Gender Identity Not on file Sexual Orientation Not on file Plan of Treatment Health Maintenance Due Date Last Done Comments CHLAMYDIA SCREENING (ANNUAL) 11-24 YEARS 2012 CERVICAL CANCER SCREENING 2022 DTAP/TDAP/TD VACCINES (7 - Td or Tdap) 05/07/2023 05/07/2013, 02/06/2007, 05/26/2003, Additional history exists INFLUENZA VACCINE (#1) 2024 07/15/2019 HEPATITIS B VACCINES Completed 08/30/2002, 2001, 2001 PNEUMOCOCCAL VACCINE 0-64 YEARS Aged Out 11/15/2002, 05/28/2002, 03/16/2002, Additional history exists No longer eligible based on patient's age to complete this topic HPV VACCINES Completed 04/23/2016, 05/07/2013
== END 2024-11-03 12:06 | disposition home or self-care (01) ==
PROVIDERS: Emergency Provider Nurse Practitioner; PCP Family Medicine
DX: H66.92 Otitis media, unspecified, left ear (principal); J32.9 Chronic sinusitis, unspecified; E11.9 Type 2 diabetes mellitus without complications; K76.89 Other specified diseases of liver; F41.8 Other specified anxiety disorders; Z87.891 Personal history of nicotine dependence
CPT/HCPCS: 99213; G0463

== ENCOUNTER 2024-11-06 11:28 | Emergency (ER) | payer BC, MEDICAID, SELFPAY ==
[2024-11-06 11:27] VITALS: BP 123/94; PULSE 99; RESP 17; TEMP 36.8; O2SAT 97
[2024-11-06 11:45] VITALS: O2SAT 97
--- NOTE | 2024-11-06 11:46 | ED.URI ---
HPI - URI/Sore Throat General Chief Complaint: Upper Respiratory Infection Stated Complaint: cold symptoms Time Seen by Provider: 11/06/24 11:46 Source: patient Mode of arrival: ambulatory Limitations: no limitations History of Present Illness HPI Narrative: 23-year-old female with a history hepatic steatosis, anxiety/ depression, diabetes mellitus was diagnosed with otitis media/ upper respiratory tract infection on 11/03/2024 and prescribed Augmentin. She presents to the ED with -- cough -- congestion -- sore throat -- ear pain -- dizziness-- patient feels lightheaded. She has had recent heavy monthly periods no shortness of breath/ chest pain no nausea/vomiting. MD elicited complaint: cough, sore throat and nasal congestion Onset (ago): day(s) Consistency: constant Description of mucous: watery Able to tolerate fluids by mouth: Yes Exacerbating factors: nothing Relieving factors: nothing Associated symptoms: denies other symptoms, fever, sore throat, cough and ear pain Treatments prior to arrival: none Related Data Home Medications ?Medication ?Instructions ?Recorded ?Confirmed ?Last Taken ?Type metformin 500 mg tablet 500 mg PO BID 10/10/24 11/06/24 Unknown History semaglutide 0.25 mg or 0.5 mg (2 0.25 mg subcut WEEKLY 10/10/24 11/06/24 Unknown History mg/3 mL) subcutaneous pen injector (Ozempic) Allergies Allergy/AdvReac Type Severity Reaction Status Date / Time No Known Allergies Allergy Verified 11/06/24 11:41 Review of Systems Review of Systems: All systems reviewed & are unremarkable except as noted in HPI and below Constitutional: Constitutional: Reports as per HPI, Reports no additional constitutional complaints and Reports fever(s) Eyes: Eyes: Reports as per HPI and Reports no additional eye complaints ENT: Reports system reviewed and no additional complaints, except as documented, Reports as per HPI, Reports nasal congestion and Reports sore throat Cardiovascular: Cardiovascular: Reports as per HPI and Reports no additional cardiovascular complaints Respiratory: Respiratory: Reports as per HPI, Reports no additional respiratory complaints and Reports cough Gastrointestinal: Gastrointestinal: Reports as per HPI and Reports no additional gastrointestinal complaints Genitourinary: Genitourinary: Reports no additional female genitourinary complaints and Reports as per HPI Musculoskeletal: Musculoskeletal: Reports no additional musculoskeletal complaints and Reports as per HPI Integumentary/Breasts: Skin/Breast: Reports system reviewed and no additional complaints, except as docu and Reports as per HPI Neurologic: Reports system reviewed and no additional complaints, except as documented and Reports as per HPI Psychiatric: Psychiatric: Reports no additional psychiatric complaints and Reports as per HPI Endocrine: Endocrine: Reports no additional endocrine complaints and Reports as per HPI Hematologic/Lymphatic: Hematologic/Lymphatic: Reports no additional hematologic/lymphatic complaints and Reports as per HPI Allergic/Immunologic: Allergic/Immunologic: Reports no additional allergic/immunologic complaints and Reports as per HPI [facility] Past Medical History Medical History Screen for STD (sexually transmitted disease) Diabetes mellitus Menorrhagia Vaginal delivery x1 Nonalcoholic liver disease, chronic Anxiety and depression Surgical History Surgical History History of tonsillectomy and adenoidectomy 2015? Family History Family History Father Hypertension Asthma Mother , 06/2021 Diabetes mellitus Heart failure Kidney disease Hypertension Asthma Grandparent Diabetes mellitus Heart problem Other Patient's mother is Social History Social History Smoking status: Former smoker Tobacco type: e-cigarettes/vaping Second hand tobacco smoke exposure: No Smoking end date: 10/03/21 Additional smoking assessment comments: quit when she found out she was Alcohol intake: current Alcohol use details: heavy drinker prior to find out she is Substance use: never Lack of Transportation: No Lack of Food: Never True Current Housing: I Have Housing Concerned About Future Housing: No Difficulty Paying Gas/Electric Bills: No Difficulty Paying for Meds: No Currently Unemployed: No Difficulty w/ Childcare or Family Care: No Living arrangements: with family Occupation/Education: occupation Additional occupation/education comments: [employer] Gender identity (if verbalized by the patient): Female Spiritual care concerns: No Exam Narrative: blood pressure 123/94 Const: General: no acute distress Nutritional Appearance: well nourished Orientation/consciousness: patient oriented x3 Limitations: no limitations HENMT: Head: normal to inspection Ears: external ears normal Face/Nose/Sinus: Normal external nose present Face and sinus: normal facial exam Mouth: Yes Normal oral and palatal mucosa present Throat: posterior oropharynx normal Eyes: Conjunctivae: conjunctivae normal Pupils: Equal, round and reactive pupils present EOM: EOMs intact bilaterally Direct Ophthalmoscopy: no photophobia Neck: Neck: normal visual inspection, no lymphadenopathy and no meningeal signs Chest: Chest palpation & inspection: normal inspection of the chest Resp: Effort & Inspection: normal respiratory effort Auscultation: clear to auscultation bilaterally Cardio: Rate: regular rate Rhythm: regular rhythm GI: GI Palp: Yes Soft to palpation Auscultation: normal bowel sounds Other: no tenderness/ rigidity /rebound : General: Yes no CVA tenderness Back/Spine/Pelvis: Back: no CVA tenderness Skin: General skin exam: normal color Rashes: no rashes Neuro: General: patient oriented x3, moves all extremities, no meningeal signs, no focal motor deficits and CN's II-XI intact bilaterally Cranial nerves: Yes Nystagmus not present Speech: normal speech Gait exam (Neuro): Normal gait present Extrem: General: normal to inspection and no clubbing, cyanosis or edema Psych: Mental Status: mental status grossly normal Affect: normal affect Attitude: cooperative Course Course Emergency Course: respiratory tract infection dizziness-- blood work is unremarkable including a normal H&H otitis media on treatment with Augmentin Vital Signs Vital signs: Vital Signs Temperature 36.8 C 11/06/24 11:27 Pulse Rate 99 11/06/24 11:27 Respiratory Rate 17 11/06/24 11:27 Blood Pressure 123/94 H 11/06/24 11:27 Pulse Oximetry 97 11/06/24 11:27 Oxygen Delivery Room Air 11/06/24 11:27 Temperature 36.8 C 11/06/24 11:27 Pulse Rate 99 11/06/24 11:27 Respiratory Rate 17 11/06/24 11:27 Blood Pressure 123/94 H 11/06/24 11:27 Pulse Oximetry 97 11/06/24 11:45 Oxygen Delivery Room Air 11/06/24 11:45 MDM - URI/Sore Throat MDM Narrative Medical decision making narrative: dizziness upper respiratory tract infection Differential Diagnosis Differential diagnosis: Likely viral infection Medical Records Attestation: I reviewed the patient's medical records. Lab Data Attestation: I reviewed the patient's lab results. 11/06/24 12:30 11/06/24 12:30 Labs: Lab Results 11/06/24 11/06/24 Range/Units 11:59 12:30 WBC 4.3 L (4.8-10.8) K/mm3 RBC 4.79 (4.20-5.40) M/mm3 Hgb 12.9 (12.0-15.0) g/dL Hct 39.2 (35.0-49.0) % MCV 81.8 (78.0-102.0) fL MCH 26.9 L (27.0-31.0) pg MCHC 32.9 (32-36) g/dL RDW 12.0 (11.6-14.4) % Plt Count 265 (150-420) K/mm3 MPV 8.4 L (9.2-11.8) fl Immature Gran % (Auto) 0.2 H (0.0-0.0) % Neut % (Auto) 76.2 H (50.0-70.0) % Lymph % (Auto) 15.3 L (18.0-42.0) % [place] % (Auto) 8.1 (2.0-11.0) % Eos % (Auto) 0.0 L (1.0-6.0) % Baso % (Auto) 0.2 (0.0-1.0) % Lymph # (Auto) 0.66 L (1.10-4.50) K/mm3 [place] # (Auto) 0.35 (0.10-0.90) K/mm3 Eos # (Auto) 0.00 L (0.02-0.50) K/mm3 Baso # (Auto) 0.01 (0.00-0.10) K/mm3 Abs Immat Gran (auto) 0.01 H (0.00-0.00) K/mm3 Absolute Neuts (auto) 3.29 (1.70-7.20) K/mm3 Absolute Nucleated RBC 0.00 (0.00-0.00) K/mm3 Nucleated RBC % 0.0 (0-0.0) % Sodium 136 (136-145) mmol/L Potassium 3.2 L (3.5-5.1) mmol/L Chloride 101 (98-108) mmol/L Carbon Dioxide 26 (21-32) mmol/L Anion Gap 9 (4-12) mmol/L BUN 10 (7-18) mg/dL Creatinine 0.94 (0.55-1.02) mg/dL Estim Creat Clear Calc 111 ml/min Estimated GFR > 60 (59 - ) Glucose 132 H (70-99) mg/dL Calculated Osmolality 283 L (285-295) mOsm/kg Lactic Acid 0.7 (0.4-2.0) mmol/L Calcium 8.5 (8.5-10.1) mg/dL Total Bilirubin 0.5 (0.00-1.00) mg/dL AST 33 (15-37) U/L ALT 38 (14-59) U/L Alkaline Phosphatase 84 (46-116) U/L Total Protein 7.1 (6.4-8.2) g/dL Albumin 3.2 L (3.4-5.0) g/dL Influenza A (RT-PCR) Positive A (Negative) Influenza B (RT-PCR) Negative (Negative) RSV (RT-PCR) Negative (Negative) SARS-CoV-2 RNA (RT-PCR) Negative (Negative) Discharge Plan Discharge Clinical Impression: Dizziness, Influenza A Upper respiratory infection Qualifiers: URI type: unspecified URI Qualified Code(s): J06.9 - Acute upper respiratory infection, unspecified Patient Disposition: Home, Self-Care Condition: Stable Instructions: Antibiotic Form, Influenza (ED) Additional Instructions: no indication for treatment of influenza a at this time. Patient Language: Mongolian Prescriptions: No Action metformin 500 mg tablet 500 mg PO BID Ozempic 0.25 mg or 0.5 mg (2 mg/3 mL) pen injector 0.25 mg SUBCUT WEEKLY amoxicillin-pot clavulanate 875-125 mg tablet 1 tablet PO Q12H Qty: 20 0RF Follow-up/Referrals: Harms,Uriel Sánchez M.D. [Primary Care Provider] - Time of Disposition: 13:53
--- NOTE | 2024-11-06 11:51 | PC.NURSE ---
Covid culture sent to lab
[2024-11-06 12:35] LABS: Basophils Absolute Auto 0.01 K/mm3 (0.00-0.10); Basophils Percent Auto 0.2 % (0.0-1.0); Hematocrit 39.2 % (35.0-49.0); Hemoglobin 12.9 g/dL (12.0-15.0); Immature Granulocyte Absolute 0.01 K/mm3 (0.00-0.00); Immature Granulocyte Percent A 0.2 % (0.0-0.0); Lymphocytes Absolute Auto 0.66 K/mm3 (1.10-4.50); Lymphocytes Percent Auto 15.3 % (18.0-42.0); Mean Corpuscular HGB Conc 32.9 g/dL (32-36); Mean Corpuscular Hemoglobin 26.9 pg (27.0-31.0); Mean Corpuscular Volume 81.8 fL (78.0-102.0); Mean Platelet Volume 8.4 fl (9.2-11.8); Monocytes Absolute Auto 0.35 K/mm3 (0.10-0.90); Monocytes Percent Auto 8.1 % (2.0-11.0); Neutrophils Absolute Auto 3.29 K/mm3 (1.70-7.20); Neutrophils Percent Auto 76.2 % (50.0-70.0); Platelet Count Result 265 K/mm3 (150-420); Red Blood Count 4.79 M/mm3 (4.20-5.40); White Blood Count 4.3 K/mm3 (4.8-10.8)
[2024-11-06 12:53] LABS: Alanine Aminotransferase 38 U/L (14-59); Albumin Level 3.2 g/dL (3.4-5.0); Alkaline Phosphatase 84 U/L (46-116); Anion Gap 9 mmol/L (4-12); Aspartate Amino Transferase 33 U/L (15-37); Bilirubin,Total 0.5 mg/dL (0.00-1.00); Blood Urea Nitrogen 10 mg/dL (7-18); Calcium 8.5 mg/dL (8.5-10.1); Carbon Dioxide 26 mmol/L (21-32); Chloride 101 mmol/L (98-108); Estimated CRCL calculation 111 ml/min; Estimated Glomerular Filt Rate > 60; Glucose 132 mg/dL (70-99); Osmolality Calculated 283 mOsm/kg (285-295); Potassium 3.2 mmol/L (3.5-5.1); Sodium 136 mmol/L (136-145); Total Protein 7.1 g/dL (6.4-8.2)
[2024-11-06 12:55] LABS: Lactic Acid Reflex 0.7 mmol/L (0.4-2.0)
[2024-11-06 13:20] LABS: SARS-CoV-2 RNA PCR Negative (Negative)
[2024-11-06] MEDS: POTASSIUM CHLORIDE 20 MEQ ER TABLET PO (13:27)
[2024-11-06 13:29] LABS: Influenza A QL RT-PCR Positive (Negative); Influenza B QL RT-PCR Negative (Negative); RSV RNA, RT-PCR Negative (Negative)
[2024-11-06 14:09] VITALS: BP 125/90; PULSE 90; RESP 16; TEMP 37.2; O2SAT 99
== END 2024-11-06 14:09 | disposition home or self-care (01) ==
PROVIDERS: Emergency Provider Internal Medicine Critical Care Medicine; PCP Family Medicine
DX: J10.1 Influenza due to other identified influenza virus with other respiratory manifestations (principal); R42 Dizziness and giddiness; E11.9 Type 2 diabetes mellitus without complications; F41.8 Other specified anxiety disorders; Z79.84 Long term (current) use of oral hypoglycemic drugs; Z79.85 Long-term (current) use of injectable non-insulin antidiabetic drugs; Z87.891 Personal history of nicotine dependence; Z20.822 Contact with and (suspected) exposure to COVID-19
CPT/HCPCS: 36415; 80053; 83605; 85025; 87637; 99283; A9270

== ENCOUNTER 2025-01-19 10:12 | Outpatient (CLI) | payer BC, MEDICAID, SELFPAY ==
--- NOTE | ~2025-01-19 | XR_ITS ---
EXAMINATION: XR sacroiliac joints min 3V DATE: 01/19/2025 10:47 INDICATION: Right-sided sciatica and sacroiliitis TECHNIQUE: AP and left and right oblique views of the sacroiliac joints were obtained. COMPARISON: CT dated 01/31/2024 FINDINGS: Bone alignment is normal. No fracture. The bilateral hip and sacroiliac joint spaces appear relativel y preserved. There is however prominent slightly asymmetric subarticular sclerosis along the bilatera l sacroiliac joints, right greater than left. Review of prior CT demonstrates a few small erosions al javier the iliac sides of both sacral iliac joints consistent with inflammatory sacroiliitis. IMPRESSION: 1. Bilateral sacroiliitis with slight right-sided predominance. Differential would include ankylosing spondylitis, inflammatory bowel disease, rheumatoid arthritis, psoriatic arthritis and reactive arth ritis. Reviewed, dictated and finalized at location A. IMPRESSION: 1. Bilateral sacroiliitis with slight right-sided predominance. Differential wo uld include ankylosing spondylitis, inflammatory bowel disease, rheumatoid arth ritis, psoriatic arthritis and reactive arthritis.
--- NOTE | ~2025-01-19 | XR_ITS ---
AP view of the pelvis and AP and lateral views of the bilateral hips Clinical history: Pain Findings: No acute fracture or dislocation is seen. Osseous alignment is anatomic. Bilateral hip and SI joint spaces are preserved. Soft tissues are unremarkable. Impression: No significant abnormality is seen. Reviewed, dictated and finalized at location . Impression: No significant abnormality is seen.
--- OUTSIDE RECORDS SUMMARY | 2025-01-19 11:38 | XMS_ITS | Clinical Summary ---
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 This disclosure is being madepursuant to the Care Everywhere program and may not contain all information available regarding this patient. Last updated 18.[facility] Allergies No known active allergies Medications * [...] Glucagon (BAQSIMI ONE PACK) 3 MG/DOSE POWD [place] 3 mg into the nose as needed [...] and anxiety without thoughts of self harm. [facility] recommendations: 1. I reviewed the risks [...] in the breast milk. 3. Recommend alerting Food Checker at delivery hospital and for to be [...] from birthweights. I advised Brandie that the [employer] recommends delivery [...] sweetened beverages. 3. Close contact with our radio script writer to optimize glycemic control on at least [...] glycemic control and surveillance. 9. After hours [facility] triage number provided to call with concerns. 10. Sent with labs today for repeat HgA1c and CMP. Family history of congenital heart defect 2020 Overview (03/26/2021): FOB with hypoplastic left heart. 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 Normal echocardiogram with [facility]. Resolved Problems Problem Noted Date Diagnosed Date Resolved Date Dysuria during in third trimester 06/13/2021 04/30/2022 Assessment & Plan (06/13/2021 5:00 PM CDT): Dysuria present intermittently with 1+ urine protein, patient is normotensive. Reports UTI that was treated in the 2nd trimester. [facility] recommendations: 1. Sent with lab requisition to have UA and culture collected at local lab today. 2. Alert OB if worsening symptoms before results. Supervision of normal first 03/26/2021 04/30/2022 Overview (03/26/2021): O Neg; AB: Neg, Immune, Rpr: NR, HIV: NR, Hbsag: NR H/h/p: 13.1 / 39.8 / 401 Elevated hemoglobin A1c 05/22/201603/04 Overview (08/25/2018): May 04, 2016 ([facility] in [place], [place]) hemoglobin A1c 6.2% (< 5.7), TSH 2.75 uIU/mL (0.465-4.68), free T4 0.96 ng/dL (0.78-2.19), ALT 24 U/L (9-52), cholesterol 160 mg/dL (200); triglyceride 117 mg/dL (< 150), HDL-cholesterol 45 mg/dL (> 35), LDL-cholesterol 81 mg/dL (< 130) May 22, 2018 - hemoglobin A1c 5.8% ([facility]) Jul, 2018 - elevated hemoglobin A1c at [facility] literature professor visit (results unavailable) Assessment & Plan (08/25/2018 10:16 AM CDT): 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 Obtain prior laboratory results 2. Orders Placed This Encounter COMPREHENSIVE METABOLIC PANEL Standing Status: Standing Number of Occurrences: 1 C-PEPTIDE Standing Status: Standing Number of Occurrences: 1 GLUTAMIC ACID DECARBOXYLASE (DIANA) ANTIBODY Standing Status: Standing Number of Occurrences: 1 IA-2 ANTIBODY Standing Status: Standing Number of Occurrences: 1 ISLET CELL ANTIBODY Standing Status: Standing Number of Occurrences: 1 LIPID PROFILE Standing Status: Standing Number of Occurrences: 1 MICROALB/CREAT RATIO URINE RANDOM PANEL Standing Status: Standing Number of Occurrences: 1 HEMOGLOBIN A1C - POCT (IP) BEAKER Standing [...] TSH. RTC in 2 weeks to see traffic or system dispatcher, 3 months to see . Snoring 05/17/2011 [...] - 3-dose series) 2016 CHLAMYDIA/GONORRHEA SCREENING 2017 MENINGOCOCCAL (Group B) VACC INE SHARED DECISION-MAKING (1 of 2 - Standard) 2017 HEPATITIS C SCREENING 11/09/2019 DTAP/TDAP/TD VACCINES (1 - Tdap) 2020 HEPATITIS B VACCINE (1 of 3 - 19+ 3-dose series) 2020 COVID-19 VACCINE (1 - 2023-2 5 season) 2024 INFLUENZA VACCINE (#1) 2024 07/15/2019 DEPRESSION SCREENING 11/03/2024 ZOSTER VACCINE (1 of 2) 2051 HIB VACCINE Aged Out No longer eligi ble based on patient's age to complete this topic MENINGOCOCCAL GROUPS A/C/Y/W VACCINE Aged Out No longer eligible b ased on patient's age to complete this topic PNEUMOCOCCAL VACCINE Aged Out No long er eligible based on patient's age to complete this topic Care Teams Rubber Production Machine Operator Relationship Specialty Start Date End Date Christine Peterson MD 2 [facility] [address] [place] [phone] PCP - General Pediatrics 07/29/18
--- OUTSIDE RECORDS SUMMARY | 2025-01-19 11:38 | XMS_ITS | Clinical Summary ---
Author Organization [facility] Building B Address [address] [place] [address] Care Team Providers Care Tailor Garment Fitter Name Role Phone Uriel Walker MD Primary Care Provider [phone] Alisson Chavis TOWN ADMINISTRATOR Unavailable [phone] Allergies No known active allergies Medications blood-glucose meter misc Use daily or as directed for monitoring of diabetes. 1 each 3 Active lancets misc 1 each by other route 2 (two) times a day 200 each 3 3 Active blood glucose diagnostic (glucose blood) strip 1 each by other route 2 (two) times a day 200 each 3 3 Active metFORMIN (GLUCOPHAGE) 500 mg tabletIndicatio ns:Type 2 diabetes mellitus with hyperglycemia, without long-term current use of insulin (HCC) Take 1 tablet (500 mg total) by mouth 2 (two) times a day with meals 60 tablet 11 4 08/17/20 25 Active Additional Information Patient not taking.Reported on 01/05/2025 semaglutide (Ozempic) 0.25 mg or 0.5 mg (2 mg/3 mL) pen injector injectionIndica tions:Type 2 diabetes mellitus with hyperglycemia, without long-term current use of insulin (HCC) Take 0.5 mg by mouth once a week 3 mL 4 Active Active Problems Problem Noted Date Diagnosed Date Lumbar radiculopathy 12/01/2024 Degeneration of intervertebr al disc of lumbar region with discogenic back pain and lower extremity pain 12/01/2024 Sacroiliitis 10/11/2024 Sciatica without lumbago, right 08/17/2024 Assessment & Plan (08/17/2024 11:13 AM CDT): Medrol dose pack ordered and pain management referral placed. Will continue with PT and monitoring. Tendinitis, de Quervain's 09/09/2023 Assessment & Plan (09/09/2023 11:06 AM FIELD RETURN REPAIRER): Pain and tenderness on the radial side of bilateral wrists. Instructed to use thumb spica splint at night and continue ibuprofen as needed. Type 2 diabetes mellitus wit h hyperglycemia, without long-term current use of insulin 06/06/2023 Assessment & Plan (08/17/2024 11:12 AM CDT): Ozempic and metformin refilled. Assessment & Plan (09/09/2023 11:17 AM FIELD RETURN REPAIRER): Continue checking glucose daily. Increase metformin to [...] 06/06/2023 Assessment & Plan (09/09/2023 10:45 AM FIELD RETURN REPAIRER): Improving after physical therapy. Encouraged continuing home [...] today. Would like to have completed at [facility] in [place]. Aware that RN will call for auth & call [facility] to set up testing. Starting new [...] today. Would like to have completed at [facility] in [place]. Aware that RN will call for auth & call [facility] to set up testing. Starting new [...] Plan (06/26/2020 12:50 PM CDT): 06/26/20 A1C=6.0% QX=956 HDL=44 XV=246 VOS=634 TC/HDL=3.8 Copy of results as well as [...] urine in office. Will check labs at [facility]. Assessment & Plan (02/17/2020 6:18 PM CDT): [...] 2 meals/day (school lunch & meal at [employer] nightly when working). Stressed dietary changes. Need [...] to deal with bullying. Paperwork completed. 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 [facility]counter [facility] medical [facility] department to establish care 02/23/2019 02/16/2020 [...] healthier, we can set up appointment with vp construction/toe former. 3. Have an active lifestyle, strive for [...] whatever food is nearby when hungry. Declines vp construction. Has seen 2x at [facility]. Will make f/u appt in 1 month. Elevated hemoglobin A1c 05/22/201606/04 Overview (02/23/2019): May 04, 2016 ([facility] in [place], [place]) hemoglobin A1c 6.2% (< 5.7), TSH 2.75 uIU/mL (0.465-4.68), free T4 0.96 ng/dL (0.78-2.19), ALT 24 U/L (9-52), cholesterol 160 mg/dL (200); triglyceride 117 mg/dL (< 150), HDL-cholesterol 45 mg/dL (> 35), LDL-cholesterol 81 mg/dL (< 130) May 22, 2018 - hemoglobin A1c 5.8% ([facility]) Jul, 2018 - elevated hemoglobin A1c at well director maternal child visit (results unavailable) Last Assessment & Plan: [...] Encounters Date Type Department Care Team Description 01/05/2025 9:14 AM FIELD RETURN REPAIRER - 01/05/2025 11:59 PM FIELD RETURN REPAIRER Hospital Encounter [facility] [address] [place] [address] Alisson Chavis NP Degeneration of intervertebral disc of lumbar region with discogenic back pain and lower extremity pain [M51.362] (Primary Dx); Acute right-sided low back pain with right-sided sciatica [M54.41]; Lumbar radiculopathy [M54.16]; Type 2 diabetes mellitus with hyperglycemia, without long-term current use of insulin (HCC); Degeneration of intervertebral disc of lumbar region with discogenic back pain and lower extremity pain; Lumbar radiculopathy; Sacroiliitis; Sciatica without lumbago, right Discharge Disposition: Discharge to home or self care 12/22/2024 8:45 AM FIELD RETURN REPAIRER - 12/22/2024 11:59 PM FIELD RETURN REPAIRER Hospital Encounter [facility] [address] [place] [id number] Sanket Das MD Degeneration of intervertebral disc of lumbar region with discogenic back pain and lower extremity pain; Lumbar radiculopathy Discharge Disposition: Discharge to home or self care 12/01/2024 12:30 PM FIELD RETURN REPAIRER - 12/01/2024 11:59 PM FIELD RETURN REPAIRER Hospital Encounter [facility] [address] [place] [id number] Alisson Chavis NP Degeneration of intervertebral disc of lumbar region with discogenic back pain and lower extremity pain (Primary Dx); Sacroiliitis; Lumbar radiculopathy Discharge Disposition: Discharge to home or self care 11/10/2024 11:25 AM FIELD RETURN REPAIRER - 11/10/2024 11:59 PM FIELD RETURN REPAIRER Hospital Encounter [facility] [address] [place] [phone] Sanket Das MD Sacroiliitis (HCC) [M46.1] (Primary Dx); Sciatica without lumbago, right Discharge Disposition: Discharge to home or self care 11/04/2024 [facility] [address] [place] [phone] Sanket Das MD from Last 3 Months Immunizations Immunization Administration Dates Next Due DTaP 02/06/2007, 3,05/23/2002,03/16,01/11/2002 [...] Kevan Torres Hypertension; Clotting disorder Mother Brandi Андрейta Diabetes Mother Salem Santhosh Diabetes melli tus; Early Mother Brandi Santhosh Heart attack Mother Salem Santhosh Kidney disease Mother Brandi Santhosh Kidney failure Mother Brandi Wilder Relation Name Status Comments Father Kevan Torres Alive Mother Brandi Wilder Alive Social History Tobacco Use Types Packs/Day Years Used Date Smoking Tobacco: Every Day Vaping Smokeless Tobacco: Former Chew Tobacco Cessation:Ready to [...] should administer the PHQ-9) 0 08/17/2024 Comments No Sex and Gender Information Value Date Recorded Sex Assigned at Not on file Legal Sex Female 1:53 AM FIELD RETURN REPAIRER Gender Identity Female 11/22/2020 12:52 PM FIELD RETURN REPAIRER Sexual Orientation Straight 11/22/2020 12 :52 PM FIELD RETURN REPAIRER Obstetrics History Last Filed Vital Signs Vital Sign Reading Time Taken Comments Blood Pressure 128/74 01/05/2025 9:33 AM FIELD RETURN REPAIRER Pulse 90 01/05/2025 9:33 AM FIELD RETURN REPAIRER Temperature 36.4 C (97.5 F) 12/22/2024 9:08 AM FIELD RETURN REPAIRER Respiratory Rate 16 01/05/2025 9:33 AM FIELD RETURN REPAIRER Oxygen Saturation 98% 01/05/2025 9:33 AM FIELD RETURN REPAIRER Inhaled Oxygen Concentration - - Weight 127.5 kg (281 lb 1.6 oz) 024 12:00 PM FIELD RETURN REPAIRER Height 165.1 cm (5' 5 ) 10/11/2024 12:0 0 PM FIELD RETURN REPAIRER Body Mass Index 46.78 10/11/2024 12:00 PM FIELD RETURN REPAIRER Plan of Treatment Health Maintenance Due Date Last Done Comments Cervical Cancer Screening 2001 Chlamydia and Gonorrhea (GC/ CT) Screening 2001 Hepatitis C Screening 2001 Pneumococcal vaccine <65 (1 of 1 - PPSV23) 2007 11/15/2002, 05/28/2002, 03/16/2002, Additional history exists Regular Well Visit/Exam 18-64 2019 Meningococcal B Vaccine (2 o f 2 - Bexsero SCDM 2-dose series) 01/13/2020 07/15/2019 Hemoglobin A1C 04/06/2024 10/06/2023, 110 05/2023, 06/06/2023, Additional history exists Influenza Vaccine (#1) 2024 07/15/2019 Foot Exam 09/09/2024 09/09/2023 Albumin Creatinine Ratio, Urine 10/06/2024 , 02/18/2020 Lipid Panel 10/06/2024 10/06/2023, 110 05/2023, 06/26/2020, Additional history exists eGFR 10/06/2024 10/06/2023, 020 02/2022, 09/27/2020, Additional history exists Dilated Eye Exam 10/22/2024 10/22/2023 Depression Screening 08/17/2025 08/17/2024, 05/07/2024, 09/09/2023, Additional history exists DTaP/Tdap/Td Vaccine (9 - Td or Tdap) 05/25/2032 05/25/2022, 08/03/2021, 05/07/2013, Additional history exists Hepatitis B Screening Completed 08/30/2002 , 2001, 2001 Varicella Vaccines Completed 02/06/2007, 02/14/2003 HPV Vaccines Completed 04/23/2016, 05/07/2013 Procedures Procedure Name Priority Date/Time Associated Diagnosis Comments PAIN MGMT IMAGING LUMBAR/SACRAL SELECTIVE NERVE ROOT INJ (TFE) RIGHT Schedule Routine, Read Routine (OP Routine) 12/22/2024 9:34 AM FIELD RETURN REPAIRER Degeneration of intervertebral disc of lumbar region with discogenic back pain and lower extremity pain Lumbar radiculopathy POCT GLUCOSE DEVICE Routine 12/22/2024 9:03 AM FIELD RETURN REPAIRER SCAN - LABS 12/06/2024 PAIN MGMT IMAGING SI JOINT RIGHT Schedule Routine, Read Routine (OP Routine) 11/10/2024 12:16 PM FIELD RETURN REPAIRER Sciatica without lumbago, right SCAN - LABS 11/06/2024 HM DIABETES EYE EXAM Routine 10/22/2023 EGFR Routine 10/06/2023 12:19 PM FIELD RETURN REPAIRER New onset type 2 diabetes mellitus (HCC) HEMOGLOBIN A1C Routine 10/06/2023 12:19 PM FIELD RETURN REPAIRER New onset type 2 diabetes mellitus (HCC) LIPID PANEL Routine 10/06/2023 12:19 PM FIELD RETURN REPAIRER Encounter for screening for lipoid disorders ALBUMIN CREATININE RATIO, URINE Routine 10/06/2023 12:19 PM FIELD RETURN REPAIRER New onset type 2 diabetes mellitus (HCC) from Last 3 Months or Most Recently Relevant to Health Maintenance Results * Imaging Lumbar/Sacral Selective Nerve Root INJ (TFE) Right ([id number]) (12/22/2024 9:34 AM FIELD RETURN REPAIRER) Narrative [facility]_ - 12/22/2024 9:34 AM FIELD RETURN REPAIRER The images from this study are not interpreted by Radiology. Please refer to the physician's procedure / OR operative note. us Alisson Chavis TOWN ADMINISTRATOR IMG PAIN MGMT PROCEDURE S Final Result RAD_PACS_CH * POCT glucose (12/22/2024 9:03 AM FIELD RETURN REPAIRER) Glucose, POC 192 70 - 199 mg/dL Blood 12/22/2024 9:03 AM FIELD RETURN REPAIRER 12/22/2024 9:03 AM FIELD RETURN REPAIRER us Sanket Das MD LAB POCT ORDERABLES - DEVICE Final Result [place] [address] Department [place] [address] * SCAN - LABS (12/06/2024) us Provider Scanning Edited Result - Final * Imaging SI Joint Injection Right ([id number]) (11/10/2024 12:16 PM FIELD RETURN REPAIRER) Narrative [facility]_PACS_[facility] - 11/10/2024 12:17 PM FIELD RETURN REPAIRER The images from this study are not interpreted by Radiology. Please refer to the physician's procedure / OR operative note. Sanket Das MD IMG PAIN MGMT PROCEDU RES Final Result [facility]_PACS_[facility] * SCAN - LABS (11/06/2024) Provider Scanning Final Result * DIABETES EYE EXAM (10/22/2023) SCRIBED DIABETIC DILATED EYE EXAM Normal Historical Provider HEALTH MAINTENANCE Final Result * eGFR (10/06/2023 12:19 PM FIELD RETURN REPAIRER) eGFR 128 mL/min/1. 73 m2 CONNIE ALSTON ([place]) Comment: Interpretive Data Reference Interval Normal >/= 90 mL/min/1.73m2 Mildly decreased* 60 - 89 mL/min/1.73m2 Mildly to moderately decreased 45 - 59 mL/min/1.73m2 Moderately to severely decreased 30 - 44 mL/min/1.73m2 Severely decreased 15 - 29 mL/min/1.73m2 Kidney Failure < 15 mL/min/1.73m2 *Relative to young adult level Estimated glomerular filtration rate is determined by the 2020 CKD-EPI equation recommended by the National Kidney Foundation (A Unifying Approach to GFR Estimation: Recommendations of the NKF-ASK Task Force on Reassessing the Inclusion of Race in Diagnosing Kidney Disease, JASN 202). The CKD-EPI equation should not be used for patients with unstable renal function and has not been validated in children and those over 70. Current interpretive data was last reviewed 2021. Testing performed by: [facility], [address] [place] [address], [place]., [address] Blood 10/06/2023 12:1 9 PM FIELD RETURN REPAIRER 10/06/2023 6:45 PM FIELD RETURN REPAIRER Roseann Galvan TOWN ADMINISTRATOR LAB BLOOD ORDERABLES Final Result Performing Organization Address City/[facility]/ZIP Co de Phone Number CONNIE ALSTON ([place]) 1 [facility] [place] [address] * Albumin Creatinine Ratio, Urine (10/06/2023 12:19 PM FIELD RETURN REPAIRER) Albumin Ur <12.0 mg/L CERNER AM [facility] ([place]) Comment: Interpretive Data No reference range established. Current interpretive data was last revised 2019. Testing performed by: [facility], [address] [place] [address]., [address] Creatinine Ur 214.2 mg/dL CONNIE [facility] ([place]) Comment: Interpretive Data No reference range established. Current interpretive data was last revised 2019. Testing performed by: [facility], [address] [place] [address]., [id number] Albumin Creatinine Ratio, Ur <6 1 - 29 mg/g CONNIE [facility] ([place]) Comment:Testing performed by : [facility], [address] [place] [address]., [id number] Urine 10/06/2023 12:1 9 PM FIELD RETURN REPAIRER 10/06/2023 6:05 PM FIELD RETURN REPAIRER Roseann Galvan TOWN ADMINISTRATOR LAB URINE ORDERABLES Final Result Performing Organization Address [facility] de Phone Number CONNIE ALSTON ([place]) 1 [facility] [place] [address] * (ABNORMAL) Hemoglobin A1c (10/06/2023 12:19 PM FIELD RETURN REPAIRER) Hgb A1C 7.5(H) 4.0 - 5.6 % [facility] ([place]) Comment:Testing performed by : [address] [address] Estimated Average Glucose 169 mg/dL CONNIE [facility] ([place]) Comment: The ADA recommends reporting an estimated Average Glucose (eAG) with all Hemoglobin A1c results using the equation derived from a study of 507 normal and diabetic adults. Minority populations were underrepresented and children were not included. (Diabetes Care 31:0282-5313, 2008). The eAG is not equivalent to a fasting glucose. Testing performed by: [facility], [address] [place] [address]., [address] Blood 10/06/2023 12:1 9 PM FIELD RETURN REPAIRER 10/06/2023 6:05 PM FIELD RETURN REPAIRER Roseann Galvan TOWN ADMINISTRATOR LAB BLOOD ORDERABLES Final Result CONNIE ALSTON ([place]) 1 [facility] Department [place] [address] * (ABNORMAL) Lipid panel (10/06/2023 12:19 PM FIELD RETURN REPAIRER) Cholesterol 169 30 - 199 mg/dL CONNIE ALSTON ([place]) Comment: Interpretive Data Ages < or = 19 years Acceptable: <170 mg/dL Borderline high: 170-199 mg/dL High: >or= 200 mg/dL Ages > or = 20 years Desirable: <200 mg/dL Borderline high: 200-239 mg/dL High: >or= 240 mg/dL Literature References: 1. Expert Panel on Integrated Guidelines for Cardiovascular Health and Risk Reduction in Children and Adolescents. Pediatrics 2011;128:S213 2. NCEP Expert Panel. Circulation 2004;110:227 Current Interpretive Data was last revised on 2018. Testing performed by: [facility], [address] [place] [address]., [id number] Triglycerides 162(H) <=149 mg/dL CONNIE ALSTON ([place]) Comment: Interpretive Data Ages < or = 9 years Acceptable: <75 mg/dL Borderline high: 75-99 mg/dL High: >or= 100 mg/dL Ages 10 to 20 years Acceptable: <90 mg/dL Borderline high: 90-129 mg/dL High: >or= 130 mg/dL Ages > or = 20 years Desirable: <150 mg/dL Borderline high: 150-199 mg/dL High: 200-499 mg/dL Very high: >or= 499 mg/dL Literature References: 1. Expert Panel on Integrated Guidelines for Cardiovascular Health and Risk Reduction in Children and Adolescents. Pediatrics 2011;128:S213 2. NCEP Expert Panel. Circulation 2004;110:227 Current Interpretive Data was last revised on 2018. Testing performed by: [facility], [address] [place] [address]., [address] HDL 31(L) >=40 mg/dL CONNIE ALSTON ([place]) Comment: Interpretive Data Ages < or = 19 years Acceptable: >45 mg/dL Borderline low: 40-45 mg/dL Low: <40 mg/dL Ages > or = 20 years Desirable: >or= 60 mg/dL Low: <40 mg/dL Literature References: 1. Expert Panel on Integrated Guidelines for Cardiovascular Health and Risk Reduction in Children and Adolescents. Pediatrics 2011;128:S213 2. NCEP Expert Panel. Circulation 2003;110:227 Current Interpretive Data was last revised on 2018. Testing performed by: [facility], [address] [place] [address]., [address] LDL, calculated 106 <=129 mg/dL CONNIE ALSTON ([place]) Comment: Interpretive Data Ages < or = 19 years Acceptable: <110 mg/dL Borderline high: 110-129 mg/dL High: >or= 130 mg/dL Ages > or = 20 years Optimal: <100 mg/dL Near optimal: 100-129 mg/dL Borderline high: 130-159 mg/dL High: >160 mg/dL Literature References: 1. Expert Panel on Integrated Guidelines for Cardiovascular Health and Risk Reduction in Children and Adolescents. Pediatrics 2011;128:S213 2. NCEP Expert Panel. Circulation 2003;110:227 Current Interpretive Data was last revised on 2018. Testing performed by: [facility], [address] [place] [address]., [address] Non-HDL Cholesterol 138 mg/dL CERETHEL ALSTON ([place]) Comment: Interpretive Data Ages < or = 19 years Acceptable: <120 mg/dL Borderline high: 120-144 mg/dL High: >145 mg/dL Ages > or = 20 years When triglycerides are >200 mg/dL, Non-HDL cholesterol is a secondary target of therapy with treatment goals that are 30 mg/dL greater than the LDL cholesterol target. Literature References: 1. Expert Panel on Integrated Guidelines for Cardiovascular Health and Risk Reduction in Children and Adolescents. Pediatrics 2011;128:S213 2. NCEP Expert Panel. Circulation 2003;110:227 Current Interpretive Data was last revised on 2018. Testing performed by: [facility], [address] [place] [address]., [address] Chol/HDL ratio 5 TURNER Hobbs ALECIA ([place]) Comment:Testing performed by : [facility], [address] [place] [address]., [id number] Blood 10/06/2023 12:1 9 PM FIELD RETURN REPAIRER 10/06/2023 6:05 PM FIELD RETURN REPAIRER Roseann Galvan TOWN ADMINISTRATOR LAB BLOOD ORDERABLES Final Result CONNIE ALECIA ([place]) 1 [facility] Department [place] [address] from Last 3 Months or Most Recently Relevant to Health Maintenance Insurance IDMD [facility] [place] [place] [address] [facility] [employer] [facility] Care Teams Tailor Garment Fitter Relationship Specialty Start Date End Date Uriel Walker MD [address] [place] [address] PCP - General Family Medicine 02/23/19 [place] [id number] [address] [facility] [address] [place] [address] Nurse Practitioner Brimming Machine Operator 12/01/24
--- OUTSIDE RECORDS SUMMARY | 2025-01-19 11:38 | XMS_ITS | Encounter Summary ---
Author Organization [facility] Address [facility] [place] [address] Care Team Providers Care Teacher Vocational Training Name Role Phone Uriel Walker MD Primary Care Provider [phone] Reason for Visit * Reason Comments Lumbar Radiculopathy * Physical Therapy (Routine) - Authorized Specialty Diagnoses / Procedures Referred By Contac t Referred To Contact PHYSICAL THERAPY / [facility] Physical Therapy Diagnoses Core Strength Procedures Uriel Herbert MD [address] [facility] [place] [address] Phone: tel: fax: Miquel Evans, PT [address] [place] [address] Phone: tel: fax: Referral ID Status Reason Start Date Expiration Date Visits Requested Visits Authorized [id number] Authorized Physical Therapy 01/17/2025 20 20 Encounter Details Date Type Department Care Team (Latest Contact Info) Description 01/17/2025 7:50 AM CDT - 01/17/2025 11:59 PM CDT Hospital Encounter [facility] [address] [place] [address] Uriel Walker MD [address] [place] [address] Miquel Evans, PT [address] [place] [address] Lumbar Radiculopathy Discharge Disposition: Home or Self Care (Routine [...] often do you attend chur ch or adventist services? Never 04/26/2022 Do you belong to any clubs o r organizations such as mandaeism groups, unions, fraternal or athletic groups, or [...] and heating? Not hard at all 04/26/2022 [facility] - Occupational Stress [...] place to sleep or slept in a fdc (including now)? No 04/26/2022 Comments No Sex and Gender Information Value Date Recorded Sex Assigned at Female 04/26/2022 9:02 PM CDT Legal Sex Female 3:55 PM CDT Gender Identity Female 04/26/2022 9:02 PM CDT Sexual Orientation Straight 04/26/2022 9: 02 PM CDT documented as of this encounter Medications at Time of Discharge BAQSIMI ONE PACK 3 MG/DOSE Powder 04/19/2022 Glucagon (BAQSIMI ONE PACK) 3 MG/DOSE Powder 3 mg by Nasal route. 04/19/2022 insulin detemir 100 UNIT/ML flextouch PEN Inject 14 units every night. 04/18/2022 sertraline 50 MG tablet Take 50 mg by mouth daily. documented as of this encounter Progress Notes * Miquel Evans, PT - 01/17/2025 8:00 AM CDT PHYSICAL THERAPY OUTPATIENT INITIAL EVALUATION Time In: 0800 Time Out: 0900 Total Time: 60 minutes Date: 01/17/25 Name: Brandie Torres : 2000 Past Medical History: Diagnosis Date Diabetes mellitus Past Surgical History: Procedure Laterality Date REMOVAL OF TONSILS,13+ Y/O Subjective: Diagnosis: lumbar radiculopathy Referring Physician: Uriel Walker MD Onset Date: Chronic, 2021 Mechanism Of Injury: Insidious onset Prior Treatment For Diagnosis: Previous bout of PT last year, epidural injection, and one other injection but I can't remember what it was. Return to MD: JEFF Pt initially had a bout of increased LBP while with her first child back in 2021. Her backpain had gone away following the of her child, but has slowly started increase over the last year. She noted that her pain does feel different in this recent bout of back pain compared to when she was . She feels pain more in her back and LE now, whereas when she was she painpain more in the pelvic area. She experiences numbness, tingling, and pain typically is below the Rknee, but when I meet my limit of activity she can experience these symptoms into the foot. She is scheduled to for an x-ray in the coming weeks. Work as an employee at [employer]. Location of Pain: R side of Low back into R LE Current Pain: 3/10 Highest Pain: 10/10 Lowest Pain: 1/10 Description of Pain: Stabbing, shock sensation Aggravating Factors: Activity in general, standing for 3 hours, sitting for prolonged periods Alleviating Factors: lying down, heat Restriction/Precaution: Currently trying to get - no heat, lumbar traction, Patient Goals: Get my pain to calm down. Modified oswestry: = 34% disability Objective: -PALPATION: Significant TTP throughout lumbar paraspinals. Significant TTP on the R PSIS, notes shocking pain with palpation of R psis -GAIT: No significant gait deviations -POSTURE: Pt rests with pelvis in an anteriorly tilted position and increased lumbar lordosis. -ROM: Lumbar flex: 75% painful and required use of Ues to come back to neutral Lumbar ext: 75% provides pt with relief Lumbar SBR: 100% provides relief Lumbar SBL: 100% painful -STRENGTH: Hip Flexion: R: 4/5 L: 4/5 Hip Abduction: R: 4/5 L: 4/5 Knee Ext: R: 5/5 L: 5/5 Knee Flex: R: 03/07 L: 03/07 Ankle DF: R: 03/07 L:03/07 Ankle PF: R: 03/07 L: 03/07 -PASSIVE ACCESSORY MOVEMENT:No assess as pt could not tolerate palpation of lumbar spine -FLEXIBILITY: HS R 17 deg from TKE w/ 90/90, L 15 deg from TKE w/ 90/90 -SPECIAL TEST Bragard's- Pain on R Slump - pain on R SLR- Pain on R Sacral thrust- painful Prone press-up - Relieves pain Gaenslan's- No pain reproduced SI compression - no increase in symptoms SI distraction - no relief of symptoms Education Performed: Discussed findings from today's examination, anatomy, PT POC, importance of improving core and hip strength, and HEP and demo. Treatment Performed: Therapeutic Exercise 97052: Time: 15 minutes HEP and demo (PPT, prone press-ups, LTR, bridges) Therapeutic Activity 50587: Time: 30 minutes -Pt education Assessment Assessment/Impressions: Brandie Torres is a 24-year-old female who presents with a primary complaint of lumbar radiculopathy. Patient is demonstrating deficits in Strength, ROM, and Posture, leading to declines in her ability to tolerate ADLs and the demands of her job. Skilled therapy is rodney ropriate at this time to address these impairments and to move the patient towards their goal of reduced pain with daily activities. Rehab Potential: GOOD Personal Factors/Co-Morbidities Affecting Care: 1-2 Examination of Body Systems: Low (1-2) Clinical Presentation of Patient: Stable Uncomplicated Eval Complexity: Low PLAN: PT Plan for next visit: Continue progressing hip and core strength with toleration. Address lumbar ROM with mobility exercises. Caution with modalities as pt is attempting to get at this time. Treatment/Interventions: Therapeutic Exercise - 56828, Therapeutic Activity - 16942, Neuromuscular Re-education - 71536, Manual Therapy - 88633, and Electrical Stimulation Unattended - 35990 Frequency: 1-2x/week Duration: 12 Visits GOALS: STG 1. Patient will be independent with HEP in 4 visits. 2. Patient will report pain no greater than 2/10 in 8 visits. LTG 1. Patient will improve strength of hip abductors to 5/5 to improve hip and lumbar stability duringambulation in 12 visits. 2. Patient will improve gross lumbar ROM to 100% to assist with improving her ability to bend over to play with her child in 12 visits. 3. Patient to demonstrate the ability to lift a box 20# or greater with proper lifting mechanics in12 visits in order to demonstrate improved ability to tolerate the demands of her job. 4. Patient to report an Oswestry score of 7/50 or less in 12 visits in order to demonstrate improved overall functionality with ADLs. THE PROVIDER, I AM IN AGREEMENT WITH THE STATED THERAPY PLAN OF CARE. Provider Signature: Date: In signing this document, provider certifies that prescribed rehabilitation is a medical necessity. Date: 01/18/25 Patient Name: Brandie Torres Patient : 2000 Patient APT at [facility] [address] [place] [address] documented in this encounter Plan of Treatment Upcoming Encounters Date Type Department Care Team (Late st Contact Info) Description 01/25/2025 11:00 AM CDT Appointment [facility] [address] [place] [phone] Miquel Evans PT [address] [place] [address] Uriel Walker MD [address] [place] [address] 02/02/2025 11:00 AM CDT Appointment [facility] [address] [place] [address] Miquel Evans M, PT [address], [place] [phone] Uriel Walker MD [address] [place] [address] documented as of this encounter Visit Diagnoses Diagnosis Lumbar radiculopathy- Primary Thoracic or lumbosacral neuritis or radiculitis, unspecified documented in this encounter Care Teams Teacher Vocational Training Relationship Specialty Start Date End Date Uriel Walker MD [address] [place] [address] PCP - General INTERNAL MEDICINE 04/26/22 documented as of this encounter
--- OUTSIDE RECORDS SUMMARY | 2025-01-19 11:38 | XMS_ITS | Clinical Summary ---
Author Organization [facility] Address [address] [place] [phone] Phone Care Team Providers Care Hydrogen Power Plant Manager Name Role Phone Unavailable Primary Care Provider Unavailabl e Social History Tobacco Use Types Packs/Day Years Used Date Smoking Tobacco: Never Assessed Comments Unknown Sex and Gender Information Value Date Recorded Sex Assigned at Not on file Legal Sex Female 1:39 PM CDT Gender Identity Not on file Sexual Orientation Not on file Plan of Treatment Health Maintenance Due Date Last Done Comments CHLAMYDIA SCREENING (ANNUAL) 11-24 YEARS 2012 CERVICAL CANCER SCREENING 2022 DTAP/TDAP/TD VACCINES (7 - T d or Tdap) 05/07/2023 05/07/2013, 02/06/2007, 05/26/2003, Additional history exists INFLUENZA VACCINE (#1) 2024 07/15/2019 HEPATITIS B VACCINES Completed 08/30/2002, 2001, 2001 HPV VACCINES Completed 04/23/2016, 05/07/2013 Insurance [facility] BLUE ACCESS CHOICE
--- OUTSIDE RECORDS SUMMARY | 2025-01-19 11:38 | XMS_ITS | Referral Summary ---
[facility] Address [address] [place] [address] Care Team Providers Care Parking Line Painter Name Role Phone Uriel Walker MD Primary Care Provider [phone] Alisson Chavis ENROLLMENT MANAGEMENT VICE PRESIDENT Unavailable [phone] Encounters Date Type Department Care Team Description 01/05/2025 9:14 AM CRAB FISHER - 01/05/2025 11:59 PM CRAB FISHER Hospital Encounter [facility] [address] [place] [address] Alisson Chavis NP Degeneration of intervertebral disc [...] home or self care 12/22/2024 8:45 AM CRAB FISHER - 12/22/2024 11:59 PM CRAB FISHER Hospital Encounter [facility] [address] [place] [id number] Sanket Das MD Degeneration of intervertebral disc of lumbar region with discogenic back pain and lower extremity pain; Lumbar radiculopathy Discharge Disposition: Discharge to home or self care 12/01/2024 12:30 PM CRAB FISHER - 12/01/2024 11:59 PM CRAB FISHER Hospital Encounter [facility] [address] [place] [address] Alisson Chavis NP Degeneration of intervertebral disc of lumbar region with discogenic back pain and lower extremity pain (Primary Dx); Sacroiliitis; Lumbar radiculopathy Discharge Disposition: Discharge to home or self care 11/10/2024 11:25 AM CRAB FISHER - 11/10/2024 11:59 PM CRAB FISHER Hospital Encounter [facility] [address] [place] [address] Sanket Das MD Sacroiliitis (HCC) [M46.1] (Primary Dx); Sciatica without lumbago, right Discharge Disposition: Discharge to home or self care 11/04/2024 Telephone [facility] [address] [address] Sanket Das MD from Last 3 Months Allergies No [...] of insulin ([facility]) Take 1 tablet (500 mg total) by [...] 09/09/2023 Assessment & Plan (09/09/2023 11:06 AM CRAB FISHER): Pain and tenderness on the radial side of bilateral wrists. Instructed to use thumb spica splint at night and continue ibuprofen as needed. Type 2 diabetes mellitus wit h hyperglycemia, without long-term current use of insulin 06/06/2023 Assessment & Plan (08/17/2024 11:12 AM CDT): Ozempic and metformin refilled. Assessment & Plan (09/09/2023 11:17 AM CRAB FISHER): Continue checking glucose daily. Increase metformin to [...] 06/06/2023 Assessment & Plan (09/09/2023 10:45 AM CRAB FISHER): Improving after physical therapy. Encouraged continuing home [...] today. Would like to have completed at [facility]. Aware that RN will call for auth & call [facility] to set up testing. Starting [...] today. Would like to have completed at [facility]. Aware that RN will call for auth & call [facility] to set up testing. Starting [...] Plan (06/26/2020 12:50 PM CDT): 06/26/20 A1C=6.0% SF=570 HDL=44 CC=766 VCN=731 TC/HDL=3.8 Copy of results as well as [...] urine in office. Will check labs at [facility]. Assessment & Plan (02/17/2020 6:18 PM [...] 2 meals/day (school lunch & meal at [email or web address] nightly when working). Stressed dietary changes. Need [...] to deal with bullying. Paperwork completed. Will picker when she comes to have PPD read and to receive influenza vaccine. [facility] 02/16/2020 Assessment & [...] healthier, we can set up appointment with sword swallower/wireless operator. 3. Have an active lifestyle, strive for [...] whatever food is nearby when hungry. Declines sword swallower. Has seen 2x at [facility]. Will make f/u appt in 1 month. Elevated hemoglobin A1c 05/22/201606/04 Overview (02/23/2019): May 04, 2016 ([facility] [place], [place]) hemoglobin A1c 6.2% (< 5.7), TSH 2.75 uIU/mL (0.465-4.68), free T4 0.96 ng/dL (0.78-2.19), ALT 24 U/L (9-52), cholesterol 160 mg/dL (200); triglyceride 117 mg/dL (< 150), HDL-cholesterol 45 mg/dL (> 35), LDL-cholesterol 81 mg/dL (< 130) May 22, 2018 - hemoglobin A1c 5.8% ([facility]) Jul, 2018 - elevated hemoglobin [...] Need lifestyle changes: diet & activity. Immunizations Immunization Administration Dates Next Due DTaP [...] on file Legal Sex Female 1:53 AM CRAB FISHER Gender Identity Female 11/22/2020 12:52 PM CRAB FISHER Sexual Orientation Straight 11/22/2020 12 :52 PM CRAB FISHER Last Filed Vital Signs Vital Sign Reading Time Taken Comments Blood Pressure 128/74 01/05/2025 9:33 AM CRAB FISHER Pulse 90 01/05/2025 9:33 AM CRAB FISHER Temperature 36.4 C (97.5 F) 12/22/2024 9:08 AM CRAB FISHER Respiratory Rate 16 01/05/2025 9:33 AM CRAB FISHER Oxygen Saturation 98% 01/05/2025 9:33 AM CRAB FISHER Inhaled Oxygen Concentration - - Weight 127.5 kg (281 lb 1.6 oz) 024 12:00 PM CRAB FISHER Height 165.1 cm (5' 5 ) 10/11/2024 12:0 0 PM CRAB FISHER Body Mass Index 46.78 10/11/2024 12:00 PM CRAB FISHER Plan of Treatment Not on file Procedures Procedure Name Priority Date/Time Associated Diagnosis Comments PAIN MGMT IMAGING LUMBAR/SACRAL SELECTIVE NERVE ROOT INJ (TFE) RIGHT Schedule Routine, Read Routine (OP Routine) 12/22/2024 9:34 AM CRAB FISHER Degeneration of intervertebral disc of lumbar region with discogenic back pain and lower extremity pain Lumbar radiculopathy POCT GLUCOSE DEVICE Routine 12/22/2024 9:03 AM CRAB FISHER SCAN - LABS 12/06/2024 PAIN MGMT IMAGING SI JOINT RIGHT Schedule Routine, Read Routine (OP Routine) 11/10/2024 12:16 PM CRAB FISHER Sciatica without lumbago, right SCAN - LABS 11/06/2024 HM DIABETES EYE EXAM Routine 10/22/2023 EGFR Routine 10/06/2023 12:19 PM CRAB FISHER New onset type 2 diabetes mellitus (HCC) HEMOGLOBIN A1C Routine 10/06/2023 12:19 PM CRAB FISHER New onset type 2 diabetes mellitus (HCC) LIPID PANEL Routine 10/06/2023 12:19 PM CRAB FISHER Encounter for screening for lipoid disorders ALBUMIN CREATININE RATIO, URINE Routine 10/06/2023 12:19 PM CRAB FISHER New onset type 2 diabetes mellitus (HCC) from Last 3 Months or Most Recently Relevant to Health Maintenance Results * Imaging Lumbar/Sacral Selective Nerve Root INJ (TFE) Right (17420) (12/22/2024 9:34 AM CRAB FISHER) Narrative [facility]_ - 12/22/2024 9:34 AM CRAB FISHER The images from this study are not interpreted by Radiology. Please refer to the physician's procedure / OR operative note. Alisson Chavis ENROLLMENT MANAGEMENT VICE PRESIDENT IMG PAIN MGMT PROCEDURE S Final Result Performing Organization Address City/[facility]/ZIP Co de Phone Number [facility] * POCT glucose (12/22/2024 9:03 AM CRAB FISHER) Glucose, POC 192 70 - 199 mg/dL Blood 12/22/2024 9:03 AM CRAB FISHER 12/22/2024 9:03 AM CRAB FISHER Result [facility] Sanket Das MD LAB POCT ORDERABLES - DEVICE Final Result CONNIE [address] [address] Department [place] [address] * SCAN - LABS (12/06/2024) Provider Scanning Edited Result - Final * Imaging SI Joint Injection Right ([id number]) (11/10/2024 12:16 PM CRAB FISHER) Narrative [facility]_ - 11/10/2024 12:17 PM CRAB FISHER The images from this study are not interpreted by Radiology. Please refer to the physician's procedure / OR operative note. Sanket Das MD IMG PAIN MGMT PROCEDU RES Final Result RAD_PACS_CH * SCAN - LABS (11/06/2024) Provider Scanning Final Result * DIABETES EYE EXAM (10/22/2023) SCRIBED DIABETIC DILATED EYE EXAM Normal Historical Provider HEALTH MAINTENANCE Final Result * eGFR (10/06/2023 12:19 PM CRAB FISHER) eGFR 128 mL/min/1. 73 m2 [facility] ([place]) Comment: Interpretive Data Reference Interval Normal >/= [...] was last reviewed 2021. Testing performed by: [facility], [address] [place] [address], [place]., [address] Blood 10/06/2023 12:1 9 PM CRAB FISHER 10/06/2023 6:45 PM CRAB FISHER Roseann Galvan NP LAB BLOOD ORDERABLES Final Result CON[facility]IE [facility] ([place]) [address] [facility] Department [place] [address] * Albumin Creatinine Ratio, Urine (10/06/2023 12:19 PM CRAB FISHER) Albumin Ur <12.0 mg/L [facility] ([place] Comment: Interpretive Data No reference range established. Current interpretive data was last revised 2019. Testing performed by: [facility], [address] [place] [address]., [address] Creatinine Ur 214.2 mg/dL [facility] ([place]) Comment: Interpretive Data No reference range established. Current interpretive data was last revised 2019. Testing performed by: [address] [address] Albumin Creatinine Ratio, Ur <6 1 - 29 mg/g [facility] ([place]) Comment:Testing performed by : [address] [address] Urine 10/06/2023 12:1 9 PM CRAB FISHER 10/06/2023 6:05 PM CRAB FISHER Roseann Galvan ENROLLMENT MANAGEMENT VICE PRESIDENT LAB URINE ORDERABLES Final Result [facility] ([place]) 1 [facility] Department [place] [address] * (ABNORMAL) Hemoglobin A1c (10/06/2023 12:19 PM CRAB FISHER) Hgb A1C 7.5(H) 4.0 - 5.6 % [facility] ([place]) Comment:Testing performed by : [address] [address] Estimated Average Glucose 169 mg/dL [facility] ([place]) Comment: The ADA recommends reporting an estimated Average Glucose (eAG) with all Hemoglobin A1c results using the equation derived from a study of 507 normal and diabetic adults. Minority populations were underrepresented and children were not included. (Diabetes Care 31:0615-0768, 2008). The eAG is not equivalent to a fasting glucose. Testing performed by: [address] [address] Blood 10/06/2023 12:1 9 PM CRAB FISHER 10/06/2023 6:05 PM CRAB FISHER Roseann Galvan ENROLLMENT MANAGEMENT VICE PRESIDENT LAB BLOOD ORDERABLES Final Result [facility]ON ([place]) 1 [facility] Department [place] [address] * (ABNORMAL) Lipid panel (10/06/2023 12:19 PM CRAB FISHER) Cholesterol 169 30 - 199 mg/dL CONNIE [...] last revised on 2018. Testing performed by: [address] [address] Triglycerides 162(H) <=149 mg/dL CONNIE ALSTON ([place]) [...] last revised on 2018. Testing performed by: [address] [address] HDL 31(L) >=40 mg/dL [facility] ([place]) [...] last revised on 2018. Testing performed by: [address] [address] LDL, calculated 106 <=129 mg/dL [facility] ([place]) Comment: Interpretive Data Ages < [...] last revised on 2018. Testing performed by: [address] [address] Non-HDL Cholesterol 138 mg/dL [facility] ([place]) Comment: Interpretive Data Ages < [...] last revised on 2018. Testing performed by: [facility], [address] [place] [address]., [address] Chol/HDL ratio 5 [facility] ([place]) Comment:Testing performed by : [address] [address] Blood 10/06/2023 12:1 9 PM CRAB FISHER 10/06/2023 6:05 PM CRAB FISHER Roseann Galvan NP LAB BLOOD ORDERABLES Final Result [facility] ([place]) 1 [facility] Department of Laboratories [place] [id number] from Last 3 Months or Most Recently Relevant to Health Maintenance Insurance [employer] [place] [employer] [place] Care Teams Parking Line Painter Relationship Specialty Start Date End Date Uriel Walker MD [address] [place] [address] PCP - General Family Medicine 02/23/19 [place] [address] [address] [address] Nurse Practitioner Mine Laborer 12/01/24
--- OUTSIDE RECORDS SUMMARY | 2025-01-19 11:38 | XMS_ITS | Clinical Summary ---
Author Organization [facility] Address [facility] [place] [address] Care Team Providers Care Recycling Attendant Name Role Phone Uriel Walker MD Primary Care Provider [phone] Allergies No known active allergies Medications Glucagon (BAQSIMI ONE PACK) 3 MG/DOSE Powder 3 mg by Nasal route. 04/19/2022 Active BAQSIMI ONE PACK 3 MG/DOSE Powder 04/19/2022 Ac tive insulin detemir 100 UNIT/ML flextouch PEN Inject 14 units every night. 04/18/2022 Active sertraline 50 MG tablet Take 50 mg by mouth daily. Active Active Problems Problem Noted Date Diagnosed Date Lumbar radiculopathy 01/17/2025 Encounters Date Type Department Care Team Description 01/17/2025 7:50 AM CDT - 01/17/2025 11:59 PM T Hospital Encounter [facility] [address] [place] [address] Uriel Walker MD [place], Tanner M, PT Lumbar Radiculopathy Discharge Disposition: Home or Self Care (Routine Discharge) 01/17/2025 Travel from Last 3 Months Family History Medical History Relation Comments Asthma [...] week 04/26/2022 How often do you attend [facility] or muslim services? Never 04/26/2022 Do you belong to any clubs o r organizations such as holiness groups, unions, fraternal or athletic groups, or [...] and heating? Not hard at all 04/26/2022 [facility] - [...] place to sleep or slept in a care home (including now)? No 04/26/2022 Comments No Sex [...] 06/12/2021 3:00 PM CDT Plan of Treatment Upcoming Encounters Date Type Department Care Team (Late st Contact Info) Description 01/25/2025 11:00 AM CDT Appointment [facility] [address] [place], [place] [phone] Miquel Evans, PT [address] [place], [place] [phone] Uriel Walker MD [address] [place] [address] 02/02/2025 11:00 AM CDT Appointment [facility] [address] [place] [address] Miquel Evans, PT [address] [place], [place] [phone] Uriel Walker MD [address] [place] [address] Health Maintenance Due Date Last Done Comments Cervical Cancer Screening Pap Smear (Age 21 to 29) Every 3 Years 2001 Cervical Cancer Screening 2001 Annual Physical 2004 Hepatitis C 2019 Meningococcal B Vaccine (2 of 2 - Bexsero SCDM 2-dose series) 01/13/2020 07/15/2019 COVID-19 Vaccine ( - season) 2024 Influenza Adult (#1) 2024 07/15/2019 DTaP, Tdap and Td Vaccines (9 - Td or Tdap) 05/25/2032 05/25/2022, 08/03/2021, 05/07/2013, Additional history exists Hepatitis B Vaccines Completed 08/30/2002, 2001, 2001 [...] patient's age to complete this topic Insurance [facility] Care Teams Recycling Attendant Relationship Specialty Start Date End Date Uriel Walker MD [address] [place] [address] PCP - General INTERNAL MEDICINE 04/26/22
== END 2025-01-19 10:13 | disposition home or self-care (01) ==
PROVIDERS: PCP Family Medicine
DX: M51.362 Other intervertebral disc degeneration, lumbar region with discogenic back pain and lower extremity pain (principal); M54.16 Radiculopathy, lumbar region; M46.1 Sacroiliitis, not elsewhere classified; M54.31 Sciatica, right side
CPT/HCPCS: 72202; 73521

== ENCOUNTER 2025-03-23 20:13 | Emergency (ER) | payer BC, MEDICAID, SELFPAY ==
--- NOTE | ~2025-03-23 | US_ITS ---
Pelvic ultrasound. Clinical History: First trimester , pain Technique: Realtime transabdominal and transvaginal scanning of the pelvis was performed. Color flow Doppler and Doppler spectral analysis were performed. Findings: The uterus is anteverted, and contains an early intrauterine gestational sac. Small hypoech oic posterior wall fibroid measures 1.1 cm in diameter. Hi-Nella-rump length of 3 mm corresponds to an e stimated gestational age of 5 weeks 6 days. Yolk sac present. No cardiac activity seen. The right ovary measures 2.1 x 2.0 x 2.2 cm. No significant right ovarian or adnexal mass is seen. The left ovary measures 1.9 x 1.2 x 1.0 cm. No significant left ovarian or adnexal mass is seen. There is no evidence of free fluid in the cul de sac. Impression: Early intrauterine gestational sac with estimated gestational age of 5 weeks 6 days by crown-rump jesus gth. No cardiac activity seen, which may be due to the early gestational age. Serial beta hCG trendin g should be considered. Also consider follow-up ultrasound in 7-10 days to reassess for development o f cardiac activity. Reviewed, dictated and finalized at [facility]. Impression: Early intrauterine gestational sac with estimated gestational age of 5 weeks 6 days by crown-rump length. No cardiac activity seen, which may be due to the ea rly gestational age. Serial beta hCG trending should be considered. Also consid er follow-up ultrasound in 7-10 days to reassess for development of cardiac act ivity.
--- OUTSIDE RECORDS SUMMARY | 2025-03-23 20:15 | XMS_ITS | Clinical Summary ---
Author Organization [facility] Address [address] [place] [phone] Phone Care Team Providers Care Retail Security Professional Name Role Phone Unavailable Primary Care Provider [...] 11-24 YEARS 2012 CERVICAL CANCER SCREENING 2022 HPV/Cotest (21-29) 2022 PAP SMEAR 2022 DTAP/TDAP/TD VACCINES (7 - T d or Tdap) 05/07/2023 05/07/2013, 02/06/2007, 05/26/2003, Additional history exists INFLUENZA VACCINE (#1) 2024 07/15/2019 HEPATITIS B VACCINES Completed 08/30/2002, 2001, 2001 HPV VACCINES Completed 04/23/2016, 05/07/2013 Insurance [facility] BLUE ACCESS CHOICE
--- OUTSIDE RECORDS SUMMARY | 2025-03-23 20:15 | XMS_ITS | Clinical Summary ---
Author Organization [facility] Address [address] [place] [address] Care Team Providers Care Certified Low Vision Therapist Name Role Phone Christine Peterson MD Primary Care Provider [phone] Source Comments [facility],non-owned Affiliates and Associated Physician Practices is amultiple site organization consisting of ambulatory clinics and hospital sitesin [place], [place], [place] and [place]. This disclosure is being madepursuant to the Care Everywhere program and may not contain all information available regarding this patient. Last updated 18.[facility] Allergies No known active allergies Medications * Be aware that medications may not be up to date on this document. Alwaysverify current medications with the patient. Lancets (MICROLET) [facility] Use 5-9 Each once daily Use to check blood sugar twice daily or as directed. 100 Each 11 8 Active aspirin (ASPIRIN) 81 MG chew tablet Take 162 mg by mouth once daily Active Vit-Fe Fumarate-FA ( VITAMIN) 28-0.8 MG tabletIndicati ons: Take 1 tablet by mouth once daily Reasons: Active acetaminophen (TYLENOL) 500 MG tabletIndicati ons:Pain Take 500 mg by mouth every 6 hours as needed for Fever or Pain Maximum allowable Acetaminophen amount = 4 Grams (4000 mg) / 24 hours. Reasons: Pain Active hydrOXYzine hcl (ATARAX) 25 MG tabletIndicati ons:Anxiety Take 1 (one) tablet by mouth 3 times daily as needed (anxiety) Reasons: Feeling Anxious 90 tablet 5 1 Active Glucagon, rDNA, (GLUCAGON EMERGENCY) 1 MG KIT Inject 1 (one) mg subcutaneously as needed 1 Each 1 1 Active sertraline (ZOLOFT) 50 MG tablet Take 50 mg by mouth once daily Active Glucagon (BAQSIMI ONE PACK) 3 MG/DOSE POWD [place] 3 mg into the nose as needed 1 Each 2 Active OneTouch Delica Lancets 33G MISC Use 1 Each as directed 100 Each 2 2 Active insulin detemir (LEVEMIR) pen Inject 14 (fourteen) Units to 50 (fifty) Units subcutaneously as directed Start with 14 units at 6pm. Increase as directed. 15 mL 2 2 Active insulin lispro (HUMALOG KWIKPEN) 200 UNIT/MLIndicat ions:Gestation al Diabetes Inject 16 (sixteen) Units to 50 (fifty) Units subcutaneously as directed Start with 4u before bfast & lunch, 8u before dinner. Increase as directed Reasons: Diabetes During 15 mL 4 2 Active Insulin Pen Needle 32G X 4 MM MISC Use 1 Each 5 times daily 200 Each 3 2 Active blood glucose (ONETOUCH VERIO) test strip Use 1 (one) strip 4 times daily 100 strip 2 2 Active metFORMIN (Glucophage) 500 MG tablet Take [...] and anxiety without thoughts of self harm. [facility] recommendations: 1. I reviewed the [...] in the breast milk. 3. 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 [facility] recommendations: 1. Start magnesium supplement to help [...] from birthweights. I advised Brandie that the [employer] recommends delivery [...] by her primary care physician is advised. M recommendations: 1. Perform 4 times daily blood glucose measurements, goals reviewed. 2. CDE education today with dietary instruction. I encouraged carbohydrate counting as patient understands how to do so and elimination of sweetened beverages. 3. Close contact with our office electrician to optimize glycemic control on at least [...] glycemic control and surveillance. 9. After hours [facility] triage number provided to call with concerns. 10. Sent with labs today for repeat HgA1c and CMP. Family history of congenital heart defect 2020 Overview (03/26/2021): FOB with hypoplastic left heart. 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 Normal echocardiogram with [facility]. Resolved Problems Problem Noted Date Diagnosed Date Resolved Date Dysuria during in third trimester 06/13/2021 04/30/2022 Assessment & Plan (06/13/2021 5:00 PM CDT): Dysuria present intermittently with 1+ urine protein, patient is normotensive. Reports UTI that was treated in the 2nd trimester. [facility] recommendations: 1. Sent with lab requisition to have UA and culture collected at local lab today. 2. Alert OB if worsening symptoms before results. Supervision of normal first 03/26/2021 04/30/2022 Overview (03/26/2021): O Neg; AB: Neg, Immune, Rpr: NR, HIV: NR, Hbsag: NR H/h/p: 13.1 / 39.8 / 401 Elevated hemoglobin A1c 05/22/201603/04 Overview (08/25/2018): May 04, 2016 ([facility] in [place], [place]) hemoglobin A1c 6.2% (< 5.7), TSH 2.75 uIU/mL (0.465-4.68), free T4 0.96 ng/dL (0.78-2.19), ALT 24 U/L (9-52), cholesterol 160 mg/dL (200); triglyceride 117 mg/dL (< 150), HDL-cholesterol 45 mg/dL (> 35), LDL-cholesterol 81 mg/dL (< 130) May 22, 2018 - hemoglobin A1c 5.8% ([facility]) Jul, 2018 - elevated hemoglobin A1c at well childcare provider visit (results unavailable) Assessment & Plan (08/25/2018 [...] TSH. RTC in 2 weeks to see care coordination manager, 3 months to see . 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 Gender Identity Not on file Sexual Orientation [...] VACCINE (1 - 2023-2 5 season) 2024 DEPRESSION SCREENING 11/03/2024 INFLUENZA VACCINE (Season Ended) 2025 07/15/20 ZOSTER VACCINE (1 of 2) 2051 HIB VACCINE Aged Out No longer eligi ble based on patient's age to complete this topic MENINGOCOCCAL GROUPS A/C/Y/W VACCINE Aged Out No longer eligible b ased on patient's age to complete this topic PNEUMOCOCCAL VACCINE Aged Out No long er eligible based on patient's age to complete this [place] [address] MEDICAID - [place] [facility] MEDICAID - OUT OF STATE Care Teams Certified Low Vision Therapist Relationship Specialty Start Date End Date Christine Peterson MD [address] [facility] [address] [place] [phone] PCP - General Pediatrics 07/29/18
--- OUTSIDE RECORDS SUMMARY | 2025-03-23 20:15 | XMS_ITS | Referral Summary ---
Author Organization [facility] Address [address] [place] [address] Care Team Providers Care Staining Machine Operator Name Role Phone Uriel Walker MD Primary Care Provider [phone] Alisson Chavis HERBOLOGIST Unavailable [phone] Encounters Date Type Department Care Team Description 01/19/2025 Results [facility]Up [facility] [address] [phone] Uriel Walker MD XR Hips Bilateral 2 Views W Pelvis 01/05/2025 9:14 AM CUBE MACHINE TENDER - 01/05/2025 11:59 PM CUBE MACHINE TENDER Hospital Encounter [facility] [address] [place] [id number] Alisson Chavis NP Degeneration of intervertebral disc [...] Disposition: Discharge to home or self care from Last 3 Months Allergies No known [...] 09/09/2023 Assessment & Plan (09/09/2023 11:06 AM CUBE MACHINE TENDER): Pain and tenderness on the radial side of bilateral wrists. Instructed to use thumb spica splint at night and continue ibuprofen as needed. Type 2 diabetes mellitus wit h hyperglycemia, without long-term current use of insulin 06/06/2023 Assessment & Plan (08/17/2024 11:12 AM CDT): Ozempic and metformin refilled. Assessment & Plan (09/09/2023 11:17 AM CUBE MACHINE TENDER): Continue checking glucose daily. Increase metformin to [...] 06/06/2023 Assessment & Plan (09/09/2023 10:45 AM CUBE MACHINE TENDER): Improving after physical therapy. Encouraged continuing home [...] today. Would like to have completed at [facility] in [place]. Aware that RN will call for auth & call [facility] to set up testing. Starting new [...] today. Would like to have completed at [facility] in [place]. Aware that RN will call for auth & call [facility] to set up testing. Starting new [...] Plan (06/26/2020 12:50 PM CDT): 06/26/20 A1C=6.0% MR=037 HDL=44 SN=702 WJT=970 TC/HDL=3.8 Copy of results as well as [...] urine in office. Will check labs at [facility]. Assessment & Plan (02/17/2020 6:18 PM [...] in past; would like to resume. Discussed Gerardo start. Reviewed medication side effects & scheduling. [...] 2 meals/day (school lunch & meal at [employer] nightly when working). Stressed dietary changes. Need [...] to deal with bullying. Paperwork completed. Will warehouse order picker when she comes to have PPD read and to receive influenza vaccine. Encounter for medical examin home to establish care 02/23/2019 02/16/2020 Assessment & [...] healthier, we can set up appointment with utility worker production/pacs administrator. 3. Have an active lifestyle, strive for [...] whatever food is nearby when hungry. Declines utility worker production. Has seen 2x [address] [facility]. Will make f/u appt in 1 month. Elevated hemoglobin A1c 05/22/201606/04 Overview (02/23/2019): May 04, 2016 ([facility] in [place], [place]) hemoglobin A1c 6.2% (< 5.7), TSH 2.75 uIU/mL (0.465-4.68), free T4 0.96 ng/dL (0.78-2.19), ALT 24 U/L (9-52), cholesterol 160 mg/dL (200); triglyceride 117 mg/dL (< 150), HDL-cholesterol 45 mg/dL (> 35), LDL-cholesterol 81 mg/dL (< 130) May 22, 2018 - hemoglobin A1c 5.8% ([facility]) Jul, 2018 - elevated hemoglobin A1c at well early childhood teacher visit (results unavailable) Last Assessment & [...] on file Legal Sex Female 1:53 AM CUBE MACHINE TENDER Gender Identity Female 11/22/2020 12:52 PM CUBE MACHINE TENDER Sexual Orientation Straight 11/22/2020 12 :52 PM CUBE MACHINE TENDER Last Filed Vital Signs Vital Sign Reading Time Taken Comments Blood Pressure 128/74 01/05/2025 9:33 AM CUBE MACHINE TENDER Pulse 90 01/05/2025 9:33 AM CUBE MACHINE TENDER Temperature 36.4 C (97.5 F) 12/22/2024 9:08 AM CUBE MACHINE TENDER Respiratory Rate 16 01/05/2025 9:33 AM CUBE MACHINE TENDER Oxygen Saturation 98% 01/05/2025 9:33 AM CUBE MACHINE TENDER Inhaled Oxygen Concentration - - Weight 127.5 kg (281 lb 1.6 oz) 024 12:00 PM CUBE MACHINE TENDER Height 165.1 cm (5' 5 ) 10/11/2024 12:0 0 PM CUBE MACHINE TENDER Body Mass Index 46.78 10/11/2024 12:00 PM CUBE MACHINE TENDER Plan of Treatment Not on file Procedures Procedure Name Priority Date/Time Associated Diagnosis Comments XR SACROILIAC JOINTS 3 OR MORE VIEWS Schedule Routine, Read Routine (OP Routine) 01/19/2025 10:57 AM CDT XR HIPS BILATERAL W PELVIS 2 VIEW Schedule Routine, Read Routine (OP Routine) 01/19/2025 10:57 AM CDT DIABETES EYE EXAM Routine 10/22/2023 EGFR Routine 10/06/2023 12:19 PM CUBE MACHINE TENDER New onset type 2 diabetes mellitus (HCC) HEMOGLOBIN A1C Routine 10/06/2023 12:19 PM CUBE MACHINE TENDER New onset type 2 diabetes mellitus (HCC) LIPID PANEL Routine 10/06/2023 12:19 PM CUBE MACHINE TENDER Encounter for screening for lipoid disorders ALBUMIN CREATININE RATIO, URINE Routine 10/06/2023 12:19 PM CUBE MACHINE TENDER New onset type 2 diabetes mellitus (HCC) from Last 3 Months or Most Recently Relevant to Health Maintenance Results * XR Hips Bilateral 2 Views W Pelvis (01/19/2025 10:57 AM CDT) Anatomical Region Laterality Modality Lower Extremities, Hip, Pelvis Bilateral R adiographic Imaging 01/19/2025 10:5 7 AM CDT Historical Provider IMG XR PROCEDURES Final R esult * XR Sacroiliac Joints 3 or More Views (01/19/2025 10:57 AM CDT) Anatomical Region Laterality Modality Pelvis, Body N/A Radiographic Zaina ging 01/19/2025 10:5 7 AM CDT us Historical Provider IMG XR PROCEDURES Final R esult * HM DIABETES EYE EXAM (10/22/2023) SCRIBED DIABETIC DILATED EYE EXAM Normal Historical Provider HEALTH MAINTENANCE Final Result * eGFR (10/06/2023 12:19 PM CUBE MACHINE TENDER) eGFR 128 mL/min/1. 73 m2 CONNIE ALSTON [...] was last reviewed 2021. Testing performed by: [address] [address] Blood 10/06/2023 12:1 9 PM CUBE MACHINE TENDER 10/06/2023 6:45 PM CUBE MACHINE TENDER Roseann Galavn NP LAB BLOOD ORDERABLES Final Result CONNIE ALSTON (LIN) 1 [facility] Department [place] [address] * Albumin Creatinine Ratio, Urine (10/06/2023 12:19 PM CUBE MACHINE TENDER) Albumin Ur <12.0 mg/L CONNIE [facility] ([place]) Comment: Interpretive Data No reference range established. Current interpretive data was last revised 2019. Testing performed by: [address] [address] Creatinine Ur 214.2 mg/dL CONNIE [facility] ([place]) Comment: Interpretive Data No reference range established. Current interpretive data was last revised 2019. Testing performed by: [address] [address] Albumin Creatinine Ratio, Ur <6 1 - 29 mg/g CONNIE ALSTON (LIN) Comment:Testing performed by : [facility], [address] [place] [address]., [id number] Urine 10/06/2023 12:1 9 PM CUBE MACHINE TENDER 10/06/2023 6:05 PM CUBE MACHINE TENDER Roseann Galvan HERBOLOGIST LAB URINE ORDERABLES Final Result Performing Organization Address City/[facility]/ZIP Co de Phone Number CONNIE ALSTON (LIN) 1 [facility] [employer] [address] * (ABNORMAL) Hemoglobin A1c (10/06/2023 12:19 PM CUBE MACHINE TENDER) Hgb A1C 7.5(H) 4.0 - 5.6 % CONNIE ALSTON (LIN) Comment:Testing performed by : [facility], [address] [place] [address]., [id number] Estimated Average Glucose 169 mg/dL CONNIE ALSTON ([place]) Comment: The ADA recommends reporting an estimated Average Glucose (eAG) with all Hemoglobin A1c results using the equation derived from a study of 507 normal and diabetic adults. Minority populations were underrepresented and children were not included. (Diabetes Care 31:2369-6508, 2008). The eAG is not equivalent to a fasting glucose. Testing performed by: [facility], [address] [place] [address]., [address] Blood 10/06/2023 12:1 9 PM CUBE MACHINE TENDER 10/06/2023 6:05 PM CUBE MACHINE TENDER Roseann Galvan HERBOLOGIST LAB BLOOD ORDERABLES Final Result Performing Organization Address City/[facility]/ZIP Co de Phone Number CONNIE ALSTON ([place]) 1 [facility] [place] [address] * (ABNORMAL) Lipid panel (10/06/2023 12:19 PM CUBE MACHINE TENDER) Cholesterol 169 30 - 199 mg/dL CONNIE [...] last revised on 2018. Testing performed by: [facility], [address] [place] [address]., [id number] Triglycerides 162(H) <=149 mg/dL [facility] ([place]) [...] last revised on 2018. Testing performed by: [address] [address] HDL 31(L) >=40 mg/dL [facility] ([place]) [...] last revised on 2018. Testing performed by: [address] [address] LDL, calculated 106 <=129 mg/dL [facility] [...] last revised on 2018. Testing performed by: [facility], [address] [place] [address]., [address] Non-HDL Cholesterol 138 mg/dL CONNIE ALSTON (LIN) [...] last revised on 2018. Testing performed by: [facility], [address] [place] [address]., [address] Chol/HDL ratio 5 TURNER ALSTON (LIN) Comment:Testing performed by : [facility], [address] [place] [address]., [address] Blood 10/06/2023 12:1 9 PM CUBE MACHINE TENDER 10/06/2023 6:05 PM CUBE MACHINE TENDER Roseann Galvan HERBOLOGIST LAB BLOOD ORDERABLES Final Result CONNIE ALSTON ([place]) 1 [facility] Department [place] [address] from Last 3 Months or Most Recently Relevant to Health Maintenance Insurance [employer] [employer] [place] [employer] [place] Care Teams Staining Machine Operator Relationship Specialty Start Date End [place] [address] PCP - General Family Medicine 02/23/19 [place] [address] [address] Nurse Practitioner Stitch Bonding Machine Drawer In 12/01/24
--- OUTSIDE RECORDS SUMMARY | 2025-03-23 20:15 | XMS_ITS | Clinical Summary ---
Author Organization [facility] Address [address] [place] [address] Care Team Providers Care Radar Engineering Teacher Name Role Phone Uriel Walker MD Primary Care Provider [phone] Alisson Chavis CARDIAC NURSE SPECIALIST Unavailable [phone] Allergies No known active allergies Medications blood-glucose [...] 09/09/2023 Assessment & Plan (09/09/2023 11:06 AM CLEANING MATRON): Pain and tenderness on the radial side of bilateral wrists. Instructed to use thumb spica splint at night and continue ibuprofen as needed. Type 2 diabetes mellitus wit h hyperglycemia, without long-term current use of insulin 06/06/2023 Assessment & Plan (08/17/2024 11:12 AM CDT): Ozempic and metformin refilled. Assessment & Plan (09/09/2023 11:17 AM CLEANING MATRON): Continue checking glucose daily. Increase metformin to [...] 06/06/2023 Assessment & Plan (09/09/2023 10:45 AM CLEANING MATRON): Improving after physical therapy. Encouraged continuing home [...] today. Would like to have completed at [facility] in [place]. Aware that RN will call for auth & call [facility] to set up testing. Starting new job [...] today. Would like to have completed at [facility] in [place]. Aware that RN will call for auth & call [facility] to set up testing. Starting new job [...] Plan (06/26/2020 12:50 PM CDT): 06/26/20 A1C=6.0% TT=307 HDL=44 DG=442 BFX=771 TC/HDL=3.8 Copy of results as well as [...] urine in office. Will check labs at [facility]. Assessment & Plan (02/17/2020 6:18 PM [...] 2 meals/day (school lunch & meal at [employer] nightly when working). Stressed dietary changes. Need [...] to deal with bullying. Paperwork completed. Will car pick up driver when she comes to have PPD read and to receive influenza vaccine. Encounter for medical examin [facility] to establish care 02/23/2019 02/16/2020 Assessment & [...] healthier, we can set up appointment with head buyer tobacco/telephone surveyor. 3. Have an active lifestyle, strive for [...] whatever food is nearby when hungry. Declines head buyer tobacco. Has seen 2x at [facility]. Will make f/u appt in 1 month. Elevated hemoglobin A1c 05/22/201606/04 Overview (02/23/2019): May 04, 2016 ([facility] in [place], [place]) hemoglobin A1c 6.2% (< 5.7), TSH 2.75 uIU/mL (0.465-4.68), free T4 0.96 ng/dL (0.78-2.19), ALT 24 U/L (9-52), cholesterol 160 mg/dL (200); triglyceride 117 mg/dL (< 150), HDL-cholesterol 45 mg/dL (> 35), LDL-cholesterol 81 mg/dL (< 130) May 22, 2018 - hemoglobin A1c 5.8% ([facility]) Jul, 2018 - elevated hemoglobin A1c at well child therapist visit (results unavailable) Last Assessment & Plan: [...] Description 01/19/2025 Results [facility] [address] [place] [address] Uriel Walker MD XR Hips Bilateral 2 Views W Pelvis 01/05/2025 9:14 AM CLEANING MATRON - 01/05/2025 11:59 PM CLEANING MATRON Hospital Encounter [facility] [id number] [place] [address] Alisson Chavis NP Degeneration of intervertebral disc [...] or self care from Last 3 Months Immunizations Immunization Administration [...] on file Legal Sex Female 1:53 AM CLEANING MATRON Gender Identity Female 11/22/2020 12:52 PM CLEANING MATRON Sexual Orientation Straight 11/22/2020 12 :52 PM CLEANING MATRON Obstetrics History Last Filed Vital Signs Vital Sign Reading Time Taken Comments Blood Pressure 128/74 01/05/2025 9:33 AM CLEANING MATRON Pulse 90 01/05/2025 9:33 AM CLEANING MATRON Temperature 36.4 C (97.5 F) 12/22/2024 9:08 AM CLEANING MATRON Respiratory Rate 16 01/05/2025 9:33 AM CLEANING MATRON Oxygen Saturation 98% 01/05/2025 9:33 AM CLEANING MATRON Inhaled Oxygen Concentration - - Weight 127.5 kg (281 lb 1.6 oz) 024 12:00 PM CLEANING MATRON Height 165.1 cm (5' 5 ) 10/11/2024 12:0 0 PM CLEANING MATRON Body Mass Index 46.78 10/11/2024 12:00 PM CLEANING MATRON Plan of Treatment Health Maintenance Due Date Last Done Comments Cervical Cancer Screening 2001 Chlamydia and Gonorrhea (GC/ CT) Screening 2001 Hepatitis C Screening 2001 Pneumococcal vaccine <65 (1 of 1 - PPSV23) 2007 11/15/2002, 05/28/2002, 03/16/2002, Additional history exists Regular Well Visit/Exam 18-64 2019 Meningococcal B Vaccine (2 o f 2 - Bexsero SCDM 2-dose series) 01/13/2020 07/15/2019 Hemoglobin A1C 04/06/2024 10/06/2023, 11/0 05/2023, 06/06/2023, Additional history exists Foot Exam 09/09/2024 09/09/2023 Albumin Creatinine Ratio, Urine 10/06/2024 , 02/18/2020 Lipid Panel 10/06/2024 10/06/2023, 11/0 05/2023, 06/26/2020, Additional history exists eGFR 10/06/2024 10/06/2023, 020 02/2022, 09/27/2020, Additional history exists Dilated Eye Exam 10/22/2024 10/22/2023 Influenza Vaccine (Season Ended) 2025 07/15/20 19 Depression Screening 08/17/2025 08/17/2024, 05/07/2024, 09/09/2023, Additional [...] Routine (OP Routine) 01/19/2025 10:57 AM CDT HM DIABETES EYE EXAM Routine 10/22/2023 EGFR Routine 10/06/2023 12:19 PM CLEANING MATRON New onset type 2 diabetes mellitus (HCC) HEMOGLOBIN A1C Routine 10/06/2023 12:19 PM CLEANING MATRON New onset type 2 diabetes mellitus (HCC) LIPID PANEL Routine 10/06/2023 12:19 PM CLEANING MATRON Encounter for screening for lipoid disorders ALBUMIN CREATININE RATIO, URINE Routine 10/06/2023 12:19 PM CLEANING MATRON New onset type 2 diabetes mellitus (HCC) from Last 3 Months or Most Recently Relevant to Health Maintenance Results * XR Hips Bilateral 2 Views W Pelvis (01/19/2025 10:57 AM CDT) Anatomical Region Laterality Modality Lower Extremities, Hip, Pelvis Bilateral R adiographic Imaging 01/19/2025 10:5 7 AM CDT us Historical Provider IMG XR PROCEDURES Final R esult * XR Sacroiliac Joints 3 or More Views (01/19/2025 10:57 AM CDT) Anatomical Region Laterality Modality Pelvis, Body N/A Radiographic Zaina ging 01/19/2025 10:5 7 AM CDT us Historical Provider IMG XR PROCEDURES Final R esult * HM DIABETES EYE EXAM (10/22/2023) SCRIBED HM DIABETIC DILATED EYE EXAM Normal Historical Provider HEALTH MAINTENANCE Final Result * eGFR (10/06/2023 12:19 PM CLEANING MATRON) eGFR 128 mL/min/1. 73 m2 CONNIE ALSTON [...] was last reviewed 2021. Testing performed by: [address] [address] Blood 10/06/2023 12:1 9 PM CLEANING MATRON 10/06/2023 6:45 PM CLEANING MATRON Roseann Galvan CARDIAC NURSE SPECIALIST LAB BLOOD ORDERABLES Final Result CONNIE ALSTON (LIN) 1 [facility] Department [place] [address] * Albumin Creatinine Ratio, Urine (10/06/2023 12:19 PM CLEANING MATRON) Albumin Ur <12.0 mg/L CONNIE CAPONE H (LIN) Comment: Interpretive Data No reference range established. Current interpretive data was last revised 2019. Testing performed by: [address] [address] Creatinine Ur 214.2 mg/dL CONNIE ALSTON (LIN) Comment: Interpretive Data No reference range established. Current interpretive data was last revised 2019. Testing performed by: [facility], [address] [place] [address]., [address] Albumin Creatinine Ratio, Ur <6 1 - 29 mg/g CONNIE ALSTON (LIN) Comment:Testing performed by : [facility], [address] [place] [address], [address] Urine 10/06/2023 12:1 9 PM CLEANING MATRON 10/06/2023 6:05 PM CLEANING MATRON Roseann Galvan NP LAB URINE ORDERABLES Final Result Performing Organization Address City/[facility] Co de Phone Number CONNIE ALSTON (LIN) 1 [facility] [place] [address] * (ABNORMAL) Hemoglobin A1c (10/06/2023 12:19 PM CLEANING MATRON) [facility] Hgb A1C 7.5(H) 4.0 - 5.6 % CONNIE ALSTON (LIN) Comment:Testing performed by : [address], [address] Estimated Average Glucose 169 mg/dL CONNIE ALSTON (LIN) Comment: The ADA recommends reporting an estimated Average Glucose (eAG) with all Hemoglobin A1c results using the equation derived from a study of 507 normal and diabetic adults. Minority populations were underrepresented and children were not included. (Diabetes Care 31:9751-6238, 2008). The eAG is not equivalent to a fasting glucose. Testing performed by: [address] [address] Blood 10/06/2023 12:1 9 PM CLEANING MATRON 10/06/2023 6:05 PM CLEANING MATRON Roseann Galvan NP LAB BLOOD ORDERABLES Final Result Performing Organization Address City/[facility] Co de Phone Number CONNIE [facility] (LIN) 1 [facility] [place] [address] * (ABNORMAL) Lipid panel (10/06/2023 12:19 PM CLEANING MATRON) Cholesterol 169 30 - 199 mg/dL CONNIE [...] last revised on 2018. Testing performed by: [address] [address] Triglycerides 162(H) <=149 mg/dL CONNIE ALSTON (LIN) [...] last revised on 2018. Testing performed by: [facility], [address] [place] [address]., [address] HDL 31(L) >=40 mg/dL CONNIE ALSTON (LIN) [...] last revised on 2018. Testing performed by: [facility], [address] [place] [address]., [address] LDL, calculated 106 <=129 mg/dL CONNIE ALSTON [...] last revised on 2018. Testing performed by: [address] [address] Non-HDL Cholesterol 138 mg/dL CONNIE ALSTON (LIN) [...] last revised on 2018. Testing performed by: [address] [address] Chol/HDL ratio 5 TURNER ALSTON (LIN) Comment:Testing performed by : [address] [address] Blood 10/06/2023 12:1 9 PM CLEANING MATRON 10/06/2023 6:05 PM CLEANING MATRON Roseann Glavan CARDIAC NURSE SPECIALIST LAB BLOOD ORDERABLES Final Result CONNIE ALSTON (LIN) 1 [facility] Department [place] [address] from Last 3 Months or Most Recently Relevant to Health Maintenance Insurance IDPA BISBEE [employer] MD ANTHEM ACCESS IDPA BLUE [employer] MD BLUE [employer] MD Care Teams Radar Engineering Teacher Relationship Specialty Start Date End Date Uriel Walker MD [address] [place] [address] PCP - General Family Medicine 02/23/19 [place] [address] [address] Nurse Practitioner Top Collar Maker 12/01/24
--- OUTSIDE RECORDS SUMMARY | 2025-03-23 20:15 | XMS_ITS | Encounter Summary ---
Author Organization [facility] Healthcare Address [address] [place] [address] Care Team Providers Care Senior Librarian Name Role Phone Uriel Walker MD Primary Care Provider [phone] Alisson Chavis WELDER FABRICATOR Unavailable [phone] Encounter Details Date Type Department Care Team (Late st Contact Info) Description 01/19/2025 Results [facility] [address] [place] [address] Uriel Walker MD [address] [place] [address] XR Hips Bilateral 2 Views W Pelvis Social History Tobacco Use Types Packs/Day Years Used Date Smoking Tobacco: Every Day Vaping Smokeless Tobacco: Former Chew Alcohol Use Standard [...] on file Legal Sex Female 1:53 AM NEWSPAPER CORRESPONDENT Gender Identity Female 11/22/2020 12:52 PM NEWSPAPER CORRESPONDENT Sexual Orientation Straight 11/22/2020 12 :52 PM NEWSPAPER CORRESPONDENT documented as of this encounter Plan of Treatment Not on file documented as of this encounter Visit Diagnoses Not on filedocumented in this encounter Care Teams Senior Librarian Relationship Specialty Start Date End Date Uriel Walker MD [address] [place] [address] PCP - General Family Medicine 02/23/19 [place] [address] [address] Nurse Practitioner County Auditor 12/01/24 documented as of this encounter
[2025-03-23 20:20] VITALS: BP 152/87; PULSE 80; RESP 18; TEMP 36.9; O2SAT 98
[2025-03-23 20:45] LABS: Basophils Percent Auto 0.3 % (0.2-1.2); Eosinophils Absolute Auto 0.1 K/mm3 (0-0.3); Eosinophils Percent Auto 1.7 % (0-4.4); Hematocrit 40.5 % (37.0-47.0); Immature Granulocyte Absolute 0.01 K/mm3 (0.00-0.031); Immature Granulocyte Percent A 0.1 % (0-0.5); Lymphocytes Absolute Auto 1.64 K/mm3 (0.9-3.2); Lymphocytes Percent Auto 23.7 % (18.3-44.2); Mean Corpuscular HGB Conc 32.1 g/dl (32-36); Mean Corpuscular Hemoglobin 27.1 pg (26-34); Mean Corpuscular Volume 84.4 fl (80-100); Mean Platelet Volume 8.6 fl (7.4-10.4); Monocytes Absolute Auto 0.5 K/mm3 (0.1-0.6); Monocytes Percent Auto 6.6 % (2.6-8.5); Neutrophils Absolute Auto 4.7 K/mm3 (1.3-6.7); Neutrophils Percent Auto 67.6 % (45.5-73.1); Platelet Count Result 313 k/mm3 (150-375); Red Cell Distribution Width 12.7 % (11.5-14.5); White Blood Count 6.9 K/mm3 (4.5-10.0)
[2025-03-23 20:54] LABS: Alanine Aminotransferase 28 U/L (6-35); Albumin Level 4.1 g/dL (3.5-5.1); Alkaline Phosphatase 73 U/L (38-126); Anion Gap 5 mmol/L (4-12); Aspartate Amino Transferase 36 U/L (14-36); Bilirubin,Total 0.5 mg/dL (0.2-1.3); Blood Urea Nitrogen 8 mg/dL (7-17); Calcium 8.9 mg/dL (8.4-10.2); Carbon Dioxide 28 mmol/L (22-30); Chloride 103 mmol/L (98-107); Estimated CRCL calculation 190 ml/min; Estimated Glomerular Filt Rate > 60; Glucose 246 mg/dL (65-110); Lipase 55 U/L (23-300); Potassium 3.7 mmol/L (3.4-5.0); Sodium 136 mmol/L (137-145)
[2025-03-23 21:20] LABS: Add Urine Microscopic? YES; Appearance Urine Cloudy (Clear); Bacteria Urine 1+ /hpf; Bilirubin Urine Negative (Negative); Blood Urine Negative (Negative); Color Urine Yellow (Yellow); Glucose Urine UA 2+ mg/dL (Negative); Ketones Urine Negative (Negative); Leukocyte Esterase Ur 1+ LEU/UL (Negative); Need Manual Microscopic Reviewed; Nitrate Urine Negative (Negative); Non Pathogenic Casts 0-2; Protein Urine Negative (Negative); Specific Grav Ur 1.021 (1.001-1.035); Squamous Epithelial Cell Urine Moderate /hpf (Few); pH Urine 7.5 (5.0-9.0)
--- NOTE | 2025-03-23 23:37 | ED.ABDPAIN ---
HPI - Abdominal Pain General Chief Complaint: Abdominal Pain Stated Complaint: Lower abdominal, 6 weeks preg Time Seen by Provider: 03/23/25 23:27 Source: patient Mode of arrival: ambulatory Limitations: no limitations History of Present Illness HPI narrative: This is a 24-year-old female that presents to the emergency department for lower abdominal pain. Reports sharp, cramping lower abdominal pain. Reports she is currently about 5 weeks . No vaginal bleeding. She has her 1st appointment in the next couple of weeks. She has not had ultrasound yet this . Related Data Home Medications ?Medication ?Instructions ?Recorded ?Confirmed ?Last Taken ?Type No Home Medications 12/15/24 12/15/24 Unknown History Allergies Allergy/AdvReac Type Severity Reaction Status Date / Time No Known Allergies Allergy Verified 03/23/25 20:16 Review of Systems Review of Systems: CONSTITUTIONAL: Denies fever GASTROINTESTINAL: Reports abdominal pain. Denies nausea, vomiting, or diarrhea. GENITOURINARY: Denies dysuria All systems reviewed & are unremarkable except as noted in HPI and below PMFSH Past Medical History Medical History Screen for STD (sexually transmitted disease) Diabetes mellitus Menorrhagia Vaginal delivery x1 Nonalcoholic liver disease, chronic Anxiety and depression Surgical History Surgical History History of tonsillectomy and adenoidectomy 2016? Family History Family History Father Hypertension Asthma Mother , 06/2021 Diabetes mellitus Heart failure Kidney disease Hypertension Asthma Grandparent Diabetes mellitus Heart problem Other Patient's mother is Social History Social History Smoking status: Former smoker Tobacco type: e-cigarettes/vaping Second hand tobacco smoke exposure: No Smoking end date: 10/03/21 Additional smoking assessment comments: quit when she found out she was Alcohol intake: current Alcohol use details: heavy drinker prior to find out she is Substance use: never Lack of Transportation: No Lack of Food: Never True Current Housing: I Have Housing Concerned About Future Housing: No Difficulty Paying Gas/Electric Bills: No Difficulty Paying for Meds: No Currently Unemployed: No Difficulty w/ Childcare or Family Care: No Living arrangements: with family Occupation/Education: occupation Additional occupation/education comments: [employer] Gender identity (if verbalized by the patient): Female Spiritual care concerns: No Exam Narrative: GENERAL: Well-appearing, well-nourished, and in no acute distress. HEAD: Normocephalic, atraumatic. EYES: EOMI. CHEST: Clear to auscultation. No respiratory distress. No wheezes rales or rhonchi HEART: Regular rate and rhythm. No murmur heard. Normal peripheral pulses. ABDOMEN: Soft, nontender, nondistended, normal active bowel sounds. EXTREMITIES: Normal range of motion. No edema. SKIN: Warm, dry, no rash. NEURO: No focal deficits. Alert and oriented x3. PSYCH: Normal mood and affect Course Course Emergency Course: Patient updated on her workup and agrees with plan of care. Resting comfortably Vital Signs Vital signs: Vital Signs Temperature 98.4 F 03/23/25 20:20 Pulse Rate 80 03/23/25 20:20 Respiratory Rate 18 03/23/25 20:20 Blood Pressure 152/87 H 03/23/25 20:20 Pulse Oximetry 98 03/23/25 20:20 Oxygen Delivery Room Air 03/23/25 20:20 Temperature 98.4 F 03/23/25 20:20 Pulse Rate 63 03/24/25 01:19 Respiratory Rate 18 03/24/25 01:19 Blood Pressure 129/72 03/24/25 01:19 Pulse Oximetry 100 03/24/25 01:19 Oxygen Delivery Room Air 03/23/25 20:20 MDM - Abdominal Pain MDM Narrative Medical decision making narrative: Patient presents the emergency department for lower abdominal pain in early . She is afebrile and nontoxic appearing. Hypertensive upon arrival, this normalized without intervention. Cbc without leukocytosis. Metabolic panel with elevation of blood glucose to 246. Patient has known diabetes. Quantitative beta HCG 3988. Urine with 6-10 white blood cells, also moderate squamous epithelial cells. This will be sent for culture. Patient does not have any urinary symptoms. Ultrasound OB shows a single intrauterine gestation with yolk sac and pole. No heart tones. Patient was updated on her workup and agrees with plan of care. Encouraged to have close follow-up with her OB for follow-up ultrasound as well as management of her diabetes during . She was given warnings to return to the ER Differential Diagnosis Differential diagnosis: Likely abdominal pain and other (Ectopic , miscarriage, threatened miscarriage, UTI) Lab Data Attestation: I reviewed the patient's lab results. 03/23/25 20:38 03/23/25 20:38 Labs: Lab Results 03/23/25 03/23/25 Range/Units 20:33 20:38 WBC 6.9 (4.5-10.0) K/mm3 RBC 4.80 (4.2-5.4) M/mm3 Hgb 13.0 (12.0-15.0) g/dL Hct 40.5 (37.0-47.0) % MCV 84.4 (80-100) fl MCH 27.1 (26-34) pg MCHC 32.1 (32-36) g/dl RDW 12.7 (11.5-14.5) % Plt Count 313 (150-375) k/mm3 MPV 8.6 (7.4-10.4) fl Immature Gran % (Auto) 0.1 (0-0.5) % Neut % (Auto) 67.6 (45.5-73.1) % Lymph % (Auto) 23.7 (18.3-44.2) % [place] % (Auto) 6.6 (2.6-8.5) % Eos % (Auto) 1.7 (0-4.4) % Baso % (Auto) 0.3 (0.2-1.2) % Lymph # (Auto) 1.64 (0.9-3.2) K/mm3 [place] # (Auto) 0.5 (0.1-0.6) K/mm3 Eos # (Auto) 0.1 (0-0.3) K/mm3 Baso # (Auto) 0.0 (0.0-0.1) K/mm3 Abs Immat Gran (auto) 0.01 (0.00-0.031) K/mm3 Absolute Neuts (auto) 4.7 (1.3-6.7) K/mm3 Absolute Nucleated RBC 0.000 (0.0-0.012) K/mm3 Nucleated RBC % 0.0 (0.0-0.2) % Sodium 136 L (137-145) mmol/L Potassium 3.7 (3.4-5.0) mmol/L Chloride 103 (98-107) mmol/L Carbon Dioxide 28 (22-30) mmol/L Anion Gap 5 (4-12) mmol/L BUN 8 D (7-17) mg/dL Creatinine 0.55 L (0.7-1.0) mg/dL Estim Creat Clear Calc 190 ml/min Estimated GFR > 60 (59 - ) Glucose 246 H (65-110) mg/dL Calcium 8.9 (8.4-10.2) mg/dL Total Bilirubin 0.5 (0.2-1.3) mg/dL AST 36 (14-36) U/L ALT 28 (6-35) U/L Alkaline Phosphatase 73 (38-126) U/L Total Protein 7.0 (6.3-8.2) g/dL Albumin 4.1 (3.5-5.1) g/dL Lipase 55 (23-300) U/L Beta HCG, Quant 3988.30 mIU/ML Urine Color Yellow (Yellow) Urine Appearance Cloudy H (Clear) Urine pH 7.5 (5.0-9.0) Ur Specific [place] 1.021 (1.001-1.035) Urine Protein Negative (Negative) mg/dL Urine Glucose (UA) 2+ H (Negative) mg/dL Urine Ketones Negative (Negative) mg/dL Ur Blood (Man) Negative (Negative) Urine Nitrate Negative (Negative) Urine Bilirubin Negative (Negative) Urine Urobilinogen 1.0 (<2.0) mg/dL Add Ur Microanalysis Reviewed Leukocyte Esterase Rfl 1+ H (Negative) MIKE/UL Urine RBC 6-10 H (0-2) /hpf Urine WBC 6-10 H (0-3) /hpf Ur Squamous Epith Cells Moderate (Few) /hpf Urine Bacteria 1+ H /hpf Urine Casts 0-2 Critical Care Time Critical Care Time Critical Care Time: No Discharge Plan Discharge Clinical Impression: Abdominal pain in Qualifiers: Trimester: first trimester Qualified Code(s): O26.891 - Other specified related conditions, first trimester Patient Disposition: Home Condition: Stable Instructions: Gestational Diabetes (ED), Gestational Diabetes Diet (DC), Abdominal Pain in (ED) Additional Instructions: Return to the ER if you experience fever, chest pain, shortness of breath, abdominal pain with nausea and vomiting, you are unable to keep down liquids or solids, vaginal bleeding, or any other symptoms that are concerning to you Your ultrasound tonight shows a yolk sac and pole, no heart tones yet, which may be normal this early in Have close follow up with your OB to discuss treatment of your diabetes Dr. Goodman is our OB blasting contract miner tonight if needed Patient Language: Portuguese Prescriptions: No Action No Home Medications Follow-up/Referrals: Goyo Goodman MD [Physician] - Harms,Uriel Sánchez M.D. [Primary Care Provider] -
[2025-03-23 23:49] VITALS: BP 146/78; PULSE 77; RESP 18; O2SAT 99
--- OUTSIDE RECORDS SUMMARY | 2025-03-23 23:53 | XMS_ITS | Clinical Summary ---
Author Organization [facility] [employer] Address [address] [place] [address] Care Team Providers Care Machine Set Up Name Role Phone Christine Peterson MD Primary Care Provider [phone] Source Comments [facility],non-owned Affiliates and Associated Physician Practices is amultiple site organization consisting of ambulatory clinics and hospital sitesin [place], [place], [place] and [place]. This disclosure is being madepursuant to the Care Everywhere program and may not contain all information available regarding this patient. Last updated 18.[facility] Allergies No known active allergies Medications * Be aware that medications may not be up to date on this document. Alwaysverify current medications with the patient. Lancets (MICROLET) [facility] Use 5-9 Each once daily [...] Glucagon (BAQSIMI ONE PACK) 3 MG/DOSE POWD Sulligent 3 mg into the nose as needed [...] and anxiety without thoughts of self harm. [facility] recommendations: 1. I reviewed the risks [...] in the breast milk. 3. 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 [facility] recommendations: 1. Start magnesium supplement to [...] from birthweights. I advised Brandie that the [place] [employer] recommends delivery [...] sweetened beverages. 3. Close contact with our certified breastfeeding educator to optimize glycemic control on at [...] glycemic control and surveillance. 9. After hours [facility] triage number provided to call with concerns. 10. Sent with labs today for repeat HgA1c and CMP. Family history of congenital heart defect 2020 Overview (03/26/2021): FOB with hypoplastic left heart. 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 Normal echocardiogram with [facility]. Resolved Problems Problem Noted Date Diagnosed Date Resolved Date Dysuria during in third trimester 06/13/2021 04/30/2022 Assessment & Plan (06/13/2021 5:00 PM CDT): Dysuria present intermittently with 1+ urine protein, patient is normotensive. Reports UTI that was treated in the 2nd trimester. [facility] recommendations: 1. Sent with lab requisition to have UA and culture collected at local lab today. 2. Alert OB if worsening symptoms before results. Supervision of normal first 03/26/2021 04/30/2022 Overview (03/26/2021): O Neg; AB: Neg, Immune, Rpr: NR, HIV: NR, Hbsag: NR H/h/p: 13.1 / 39.8 / 401 Elevated hemoglobin A1c 05/22/201603/04 Overview (08/25/2018): May 04, 2016 ([facility] [place], [place]) hemoglobin A1c 6.2% (< 5.7), TSH 2.75 uIU/mL (0.465-4.68), free T4 0.96 ng/dL (0.78-2.19), ALT 24 U/L (9-52), cholesterol 160 mg/dL (200); triglyceride 117 mg/dL (< 150), HDL-cholesterol 45 mg/dL (> 35), LDL-cholesterol 81 mg/dL (< 130) May 22, 2018 - hemoglobin A1c 5.8% ([facility]) Jul, 2018 - elevated hemoglobin A1c at well childbirth educator visit (results unavailable) Assessment & Plan (08/25/2018 [...] TSH. RTC in 2 weeks to see certified professional ergonomist, 3 months to see . Snoring 05/17/2011 [...] on file Legal Sex Female 5:41 AM POULTRY TENDER Gender Identity Not on file Sexual Orientation [...] complete this [place] [place] [id number] MEDICAID - [place] [facility] MEDICAID - OUT OF STATE Care Teams Machine Set Up Relationship Specialty Start Date End Date Christine Peterson MD 2 [facility] [address] [place] [phone] PCP - General Pediatrics 07/29/18
--- OUTSIDE RECORDS SUMMARY | 2025-03-23 23:53 | XMS_ITS | Referral Summary ---
Author Organization [facility] Medical Office Building B Address [address] [place] [address] Care Team Providers Care Open Hearth Stockyard Supervisor Name Role Phone Uriel Walker MD Primary Care Provider [phone] Alisson Chavis PHYSICS FACULTY MEMBER Unavailable [phone] Encounters Date Type Department Care Team Description 01/19/2025 Results [facility] [address] [id number] Uriel Walker MD XR Hips Bilateral 2 Views W Pelvis 01/05/2025 9:14 AM SCHOOL ATTENDANCE SECRETARY - 01/05/2025 11:59 PM SCHOOL ATTENDANCE SECRETARY Hospital Encounter [facility] [address] [place] [address] Alisson Chavis NP Degeneration of intervertebral disc [...] 09/09/2023 Assessment & Plan (09/09/2023 11:06 AM SCHOOL ATTENDANCE SECRETARY): Pain and tenderness on the radial side of bilateral wrists. Instructed to use thumb spica splint at night and continue ibuprofen as needed. Type 2 diabetes mellitus wit h hyperglycemia, without long-term current use of insulin 06/06/2023 Assessment & Plan (08/17/2024 11:12 AM CDT): Ozempic and metformin refilled. Assessment & Plan (09/09/2023 11:17 AM SCHOOL ATTENDANCE SECRETARY): Continue checking glucose daily. Increase metformin to [...] 06/06/2023 Assessment & Plan (09/09/2023 10:45 AM SCHOOL ATTENDANCE SECRETARY): Improving after physical therapy. Encouraged continuing home [...] today. Would like to have completed at [facility] in [place]. Aware that RN will call for auth & call [facility] to set up testing. Starting new [...] today. Would like to have completed at [facility] in [place]. Aware that RN will call for auth & call [facility] to set up testing. Starting new [...] Plan (06/26/2020 12:50 PM CDT): 06/26/20 A1C=6.0% GA=925 HDL=44 VR=774 HBR=944 TC/HDL=3.8 Copy of results as well as [...] urine in office. Will check labs at [facility]. Assessment & Plan (02/17/2020 6:18 PM [...] 2 meals/day (school lunch & meal at [employer] nightly when working). Stressed dietary changes. Need [...] deal with bullying. Paperwork completed. Will picker tender helper when she comes to have PPD [...] healthier, we can set up appointment with industry consultant/siebel developer. 3. Have an active lifestyle, strive [...] whatever food is nearby when hungry. Declines industry consultant. Has seen 2x at [facility]. Will make f/u appt in 1 month. Elevated hemoglobin A1c 05/22/201606/04 Overview (02/23/2019): May 04, 2016 ([facility] in [place], [place]) hemoglobin A1c 6.2% (< 5.7), TSH 2.75 uIU/mL (0.465-4.68), free T4 0.96 ng/dL (0.78-2.19), ALT 24 U/L (9-52), cholesterol 160 mg/dL (200); triglyceride 117 mg/dL (< 150), HDL-cholesterol 45 mg/dL (> 35), LDL-cholesterol 81 mg/dL (< 130) May 22, 2018 - hemoglobin A1c 5.8% ([facility]) Jul, 2018 - elevated hemoglobin A1c at well children counselor visit (results unavailable) Last Assessment & Plan: [...] on file Legal Sex Female 1:53 AM SCHOOL ATTENDANCE SECRETARY Gender Identity Female 11/22/2020 12:52 PM SCHOOL ATTENDANCE SECRETARY Sexual Orientation Straight 11/22/2020 12 :52 PM SCHOOL ATTENDANCE SECRETARY Last Filed Vital Signs Vital Sign Reading Time Taken Comments Blood Pressure 128/74 01/05/2025 9:33 AM SCHOOL ATTENDANCE SECRETARY Pulse 90 01/05/2025 9:33 AM SCHOOL ATTENDANCE SECRETARY Temperature 36.4 C (97.5 F) 12/22/2024 9:08 AM SCHOOL ATTENDANCE SECRETARY Respiratory Rate 16 01/05/2025 9:33 AM SCHOOL ATTENDANCE SECRETARY Oxygen Saturation 98% 01/05/2025 9:33 AM SCHOOL ATTENDANCE SECRETARY Inhaled Oxygen Concentration - - Weight 127.5 kg (281 lb 1.6 oz) 024 12:00 PM SCHOOL ATTENDANCE SECRETARY Height 165.1 cm (5' 5 ) 10/11/2024 12:0 0 PM SCHOOL ATTENDANCE SECRETARY Body Mass Index 46.78 10/11/2024 12:00 PM SCHOOL ATTENDANCE SECRETARY Plan of Treatment Not on file Procedures Procedure Name Priority Date/Time Associated Diagnosis Comments XR SACROILIAC JOINTS 3 OR MORE VIEWS Schedule Routine, Read Routine (OP Routine) 01/19/2025 10:57 AM CDT XR HIPS BILATERAL W PELVIS 2 VIEW Schedule Routine, Read Routine (OP Routine) 01/19/2025 10:57 AM CDT DIABETES EYE EXAM Routine 10/22/2023 EGFR Routine 10/06/2023 12:19 PM SCHOOL ATTENDANCE SECRETARY New onset type 2 diabetes mellitus (HCC) HEMOGLOBIN A1C Routine 10/06/2023 12:19 PM SCHOOL ATTENDANCE SECRETARY New onset type 2 diabetes mellitus (HCC) LIPID PANEL Routine 10/06/2023 12:19 PM SCHOOL ATTENDANCE SECRETARY Encounter for screening for lipoid disorders ALBUMIN CREATININE RATIO, URINE Routine 10/06/2023 12:19 PM SCHOOL ATTENDANCE SECRETARY New onset type 2 diabetes mellitus (HCC) [...] Final Result * eGFR (10/06/2023 12:19 PM SCHOOL ATTENDANCE SECRETARY) eGFR 128 mL/min/1. 73 m2 CONNIE ALSTON [...] was last reviewed 2021. Testing performed by: [address] [address] Blood 10/06/2023 12:1 9 PM SCHOOL ATTENDANCE SECRETARY 10/06/2023 6:45 PM SCHOOL ATTENDANCE SECRETARY Roseann Galvan NP LAB BLOOD ORDERABLES Final Result CONNIE ALSTON (LIN) 1 [facility] [place] [address] * Albumin Creatinine Ratio, Urine (10/06/2023 12:19 PM SCHOOL ATTENDANCE SECRETARY) Albumin Ur <12.0 mg/L CONNIE [facility] (LIN) Comment: Interpretive Data No reference range established. Current interpretive data was last revised 2019. Testing performed by: [address] [address] Creatinine Ur 214.2 mg/dL CONNIE [facility] (LIN) Comment: Interpretive Data No reference range established. Current interpretive data was last revised 2019. Testing performed by: [address] [address] Albumin Creatinine Ratio, Ur <6 1 - 29 mg/g CONNIE ALSTON (LIN) Comment:Testing performed by : [facility], [address] [place] [address]., [address] Urine 10/06/2023 12:1 9 PM SCHOOL ATTENDANCE SECRETARY 10/06/2023 6:05 PM SCHOOL ATTENDANCE SECRETARY Roseann Galvan PHYSICS FACULTY MEMBER LAB URINE ORDERABLES Final Result Performing Organization Address City/[facility]/ZIP Co de Phone Number CONNIE ALSTON (LIN) 1 [facility] [place] [address] * (ABNORMAL) Hemoglobin A1c (10/06/2023 12:19 PM SCHOOL ATTENDANCE SECRETARY) Hgb A1C 7.5(H) 4.0 - 5.6 % CONNIE ALSTON (LIN) Comment:Testing performed by : [facility], [address] [place] [address]., [address] Estimated Average Glucose 169 mg/dL CONNIE ALSTON (LIN) Comment: The ADA recommends reporting an estimated Average Glucose (eAG) with all Hemoglobin A1c results using the equation derived from a study of 507 normal and diabetic adults. Minority populations were underrepresented and children were not included. (Diabetes Care 31:3213-9478, 2008). The eAG is not equivalent to a fasting glucose. Testing performed by: [facility], [address] [place] [address]., [address] Blood 10/06/2023 12:1 9 PM SCHOOL ATTENDANCE SECRETARY 10/06/2023 6:05 PM SCHOOL ATTENDANCE SECRETARY Roseann Galvan PHYSICS FACULTY MEMBER LAB BLOOD ORDERABLES Final Result Performing Organization Address City/[facility]/ZIP Co de Phone Number CONNIE ALSTON (LIN) 1 [facility] [place] [address] * (ABNORMAL) Lipid panel (10/06/2023 12:19 PM SCHOOL ATTENDANCE SECRETARY) Cholesterol 169 30 - 199 mg/dL CONNIE [...] last revised on 2018. Testing performed by: [facility], [address] [place] [address]., [address] Triglycerides 162(H) <=149 mg/dL [facility] (LIN) [...] last revised on 2018. Testing performed by: [address] [address] HDL 31(L) >=40 mg/dL [facility] (LIN) [...] last revised on 2018. Testing performed by: [address] [address] LDL, calculated 106 <=129 mg/dL [facility] [...] last revised on 2018. Testing performed by: [facility], [address] [place] [address]., [address] Non-HDL Cholesterol 138 mg/dL CONNIE ALSTON (LIN) [...] last revised on 2018. Testing performed by: [facility], [address] [place] [address]., [address] Chol/HDL ratio 5 TURNER ALSTON (LIN) Comment:Testing performed by : [facility], [address] [place] [address]., [address] Blood 10/06/2023 12:1 9 PM SCHOOL ATTENDANCE SECRETARY 10/06/2023 6:05 PM SCHOOL ATTENDANCE SECRETARY Roseann Galvan PHYSICS FACULTY MEMBER LAB BLOOD ORDERABLES Final Result CONNIE ALSTON (LIN) 1 [facility] Department [place] [address] from Last 3 Months or Most Recently Relevant to Health Maintenance Insurance [place] [employer] [place] Care Teams Open Hearth Stockyard Supervisor Relationship Specialty Start Date End [place] [address] PCP - General Family Medicine 02/23/19 [place] [address] [address] Nurse Practitioner Gastroenterology Physician 12/01/24
--- OUTSIDE RECORDS SUMMARY | 2025-03-23 23:53 | XMS_ITS | Encounter Summary ---
Author Organization [facility] Healthcare Address [address] [place] [address] Care Team Providers Care Methods Engineer Name Role Phone Uriel Walker MD Primary Care Provider [phone] Alisson Chavis PURCHASING BUYER Unavailable [phone] Encounter Details Date Type Department Care Team (Late st Contact Info) Description 01/19/2025 Results [facility] [place] [address] [place] [address] Uriel Walker MD [address] [place] [address] XR Hips Bilateral 2 Views [...] on file Legal Sex Female 1:53 AM COPPER PLATER Gender Identity Female 11/22/2020 12:52 PM COPPER PLATER Sexual Orientation Straight 11/22/2020 12 :52 PM COPPER PLATER documented as of this encounter Plan of Treatment Not on file documented as of this encounter Visit Diagnoses Not on filedocumented in this encounter Care Teams Methods Engineer Relationship Specialty Start Date End Date Uriel Walker MD [address] [place] [address] PCP - General Family Medicine 02/23/19 [place] [address] [address] Nurse Practitioner Cyber Security Systems Engineer 12/01/24 documented as of this encounter
--- OUTSIDE RECORDS SUMMARY | 2025-03-23 23:53 | XMS_ITS | Clinical Summary ---
Author Organization [facility] Address [address] [place] [address] Phone Care Team Providers Care Tin Cutter Name Role Phone Unavailable Primary Care Provider [...] 2001 HPV VACCINES Completed 04/23/2016, 05/07/2013 Insurance [facility] BLUE ACCESS CHOICE
--- OUTSIDE RECORDS SUMMARY | 2025-03-23 23:53 | XMS_ITS | Clinical Summary ---
Author Organization [facility] Medical Office Building B Address [address] [place] [address] Care Team Providers Care Digital Asset Coordinator Name Role Phone Uriel Walker MD Primary Care Provider [phone] Alisson Chavis SUSPENDER MAKER Unavailable [phone] Allergies No known active allergies Medications blood-glucose [...] 09/09/2023 Assessment & Plan (09/09/2023 11:06 AM FOUNDER / CEO): Pain and tenderness on the radial side of bilateral wrists. Instructed to use thumb spica splint at night and continue ibuprofen as needed. Type 2 diabetes mellitus wit h hyperglycemia, without long-term current use of insulin 06/06/2023 Assessment & Plan (08/17/2024 11:12 AM CDT): Ozempic and metformin refilled. Assessment & Plan (09/09/2023 11:17 AM FOUNDER / CEO): Continue checking glucose daily. Increase metformin to [...] 06/06/2023 Assessment & Plan (09/09/2023 10:45 AM FOUNDER / CEO): Improving after physical therapy. Encouraged continuing home [...] today. Would like to have completed at [facility] in [place]. Aware that RN will call for auth & call [facility] to set up testing. Starting [...] today. Would like to have completed at [facility] in [place]. Aware that RN will call for auth & call [facility] to set up testing. Starting [...] Plan (06/26/2020 12:50 PM CDT): 06/26/20 A1C=6.0% DY=810 HDL=44 TZ=152 TJV=270 TC/HDL=3.8 Copy of results as well as [...] urine in office. Will check labs at [facility]. Assessment & Plan (02/17/2020 6:18 PM [...] 2 meals/day (school lunch & meal at [employer] nightly when working). Stressed dietary changes. Need [...] to deal with bullying. Paperwork completed. Will steel pickler when she comes to have PPD read and to receive influenza vaccine. [facility] to establish care 02/23/2019 02/16/2020 Assessment & [...] healthier, we can set up appointment with molding plasterer/glass wool blanket machine feeder. 3. Have an active lifestyle, strive for [...] whatever food is nearby when hungry. Declines molding plasterer. Has seen 2x at [facility]. Will make f/u appt in 1 month. Elevated hemoglobin A1c 05/22/201606/04 Overview (02/23/2019): May 04, 2016 ([facility] in [place], [place]) hemoglobin A1c 6.2% (< 5.7), TSH 2.75 uIU/mL (0.465-4.68), free T4 0.96 ng/dL (0.78-2.19), ALT 24 U/L (9-52), cholesterol 160 mg/dL (200); triglyceride 117 mg/dL (< 150), HDL-cholesterol 45 mg/dL (> 35), LDL-cholesterol 81 mg/dL (< 130) May 22, 2018 - hemoglobin A1c 5.8% ([facility]) Jul, 2018 - elevated hemoglobin A1c at well child nutrition director visit (results unavailable) Last Assessment & Plan: [...] Description 01/19/2025 Results [facility] [address] [place] [address] Uriel Walker MD XR Hips Bilateral 2 Views W Pelvis 01/05/2025 9:14 AM FOUNDER / CEO - 01/05/2025 11:59 PM FOUNDER / CEO Hospital Encounter [facility] [id number] [place] [address] Alisson Chavis NP Degeneration of intervertebral disc [...] on file Legal Sex Female 1:53 AM FOUNDER / CEO Gender Identity Female 11/22/2020 12:52 PM FOUNDER / CEO Sexual Orientation Straight 11/22/2020 12 :52 PM FOUNDER / CEO Obstetrics History Last Filed Vital Signs Vital Sign Reading Time Taken Comments Blood Pressure 128/74 01/05/2025 9:33 AM FOUNDER / CEO Pulse 90 01/05/2025 9:33 AM FOUNDER / CEO Temperature 36.4 C (97.5 F) 12/22/2024 9:08 AM FOUNDER / CEO Respiratory Rate 16 01/05/2025 9:33 AM FOUNDER / CEO Oxygen Saturation 98% 01/05/2025 9:33 AM FOUNDER / CEO Inhaled Oxygen Concentration - - Weight 127.5 kg (281 lb 1.6 oz) 024 12:00 PM FOUNDER / CEO Height 165.1 cm (5' 5 ) 10/11/2024 12:0 0 PM FOUNDER / CEO Body Mass Index 46.78 10/11/2024 12:00 PM FOUNDER / CEO Plan of Treatment Health Maintenance Due Date [...] Routine 10/22/2023 EGFR Routine 10/06/2023 12:19 PM FOUNDER / CEO New onset type 2 diabetes mellitus (HCC) HEMOGLOBIN A1C Routine 10/06/2023 12:19 PM FOUNDER / CEO New onset type 2 diabetes mellitus (HCC) LIPID PANEL Routine 10/06/2023 12:19 PM FOUNDER / CEO Encounter for screening for lipoid disorders ALBUMIN CREATININE RATIO, URINE Routine 10/06/2023 12:19 PM FOUNDER / CEO New onset type 2 diabetes mellitus (HCC) [...] Final Result * eGFR (10/06/2023 12:19 PM FOUNDER / CEO) eGFR 128 mL/min/1. 73 m2 CONNIE ALSTON [...] was last reviewed 2021. Testing performed by: [address] [address] Blood 10/06/2023 12:1 9 PM FOUNDER / CEO 10/06/2023 6:45 PM FOUNDER / CEO Roseann Galvan SUSPENDER MAKER LAB BLOOD ORDERABLES Final Result CONNIE ALSTON (LIN) 1 [facility] [place] [address] * Albumin Creatinine Ratio, Urine (10/06/2023 12:19 PM FOUNDER / CEO) Albumin Ur <12.0 mg/L CONNIE [facility] (LIN) Comment: Interpretive Data No reference range established. Current interpretive data was last revised 2019. Testing performed by: [address] [address] Creatinine Ur 214.2 mg/dL CONNIE ALSTON (LIN) Comment: Interpretive Data No reference range established. Current interpretive data was last revised 2019. Testing performed by: [facility], [address] [place] [address]., [address] Albumin Creatinine Ratio, Ur <6 1 - 29 mg/g CONNIE ALSTON (LIN) Comment:Testing performed by : [facility], [address] [place] [address], [address] Urine 10/06/2023 12:1 9 PM FOUNDER / CEO 10/06/2023 6:05 PM FOUNDER / CEO Roseann Galvan NP LAB URINE ORDERABLES Final Result Performing Organization Address City/[facility] Co de Phone Number CONNIE ALSTON (LIN) 1 [facility] [place] [address] * (ABNORMAL) Hemoglobin A1c (10/06/2023 12:19 PM FOUNDER / CEO) [facility] Hgb A1C 7.5(H) 4.0 - 5.6 % CONNIE ALSTON (LIN) Comment:Testing performed by : [address], [address] Estimated Average Glucose 169 mg/dL CONNIE ALSTON (LIN) Comment: The ADA recommends reporting an estimated Average Glucose (eAG) with all Hemoglobin A1c results using the equation derived from a study of 507 normal and diabetic adults. Minority populations were underrepresented and children were not included. (Diabetes Care 31:1645-3088, 2008). The eAG is not equivalent to a fasting glucose. Testing performed by: [address] [address] Blood 10/06/2023 12:1 9 PM FOUNDER / CEO 10/06/2023 6:05 PM FOUNDER / CEO Roseann Galvan NP LAB BLOOD ORDERABLES Final Result Performing Organization Address City/[facility] Co de Phone Number CONNIE [facility] (LIN) 1 [facility] [place] [address] * (ABNORMAL) Lipid panel (10/06/2023 12:19 PM FOUNDER / CEO) Cholesterol 169 30 - 199 mg/dL CONNIE [...] last revised on 2018. Testing performed by: [address] [address] Triglycerides 162(H) <=149 mg/dL CONNIE ALSTON (LIN) [...] last revised on 2018. Testing performed by: [facility], [address] [place] [address]., [address] HDL 31(L) >=40 mg/dL CONNIE ALSTON (LIN) [...] last revised on 2018. Testing performed by: [facility], [address] [place] [address]., [address] LDL, calculated 106 <=129 mg/dL CONNIE ALSTON [...] last revised on 2018. Testing performed by: [address] [address] Non-HDL Cholesterol 138 mg/dL CONNIE ALSTON (LIN) [...] last revised on 2018. Testing performed by: [address] [address] Chol/HDL ratio 5 TURNER ALSTON (LIN) Comment:Testing performed by : [address] [address] Blood 10/06/2023 12:1 9 PM FOUNDER / CEO 10/06/2023 6:05 PM FOUNDER / CEO Roseann Galvan SUSPENDER MAKER LAB BLOOD ORDERABLES Final Result CONNIE ALSTON (LIN) 1 [facility] [place] [address] from Last 3 Months or Most Recently Relevant to Health Maintenance Insurance IDPA [employer] [place] [place] ACC[place] Care Teams Digital Asset Coordinator Relationship Specialty Start Date End Date Uriel Walker MD [address] [place] [address] PCP - General Family Medicine 02/23/19 [place] [address] [address] Nurse Practitioner Rounder Hand 12/01/24
[2025-03-24 01:19] VITALS: BP 129/72; PULSE 63; RESP 18; O2SAT 100
== END 2025-03-24 03:17 | disposition home or self-care (01) ==
PROVIDERS: Emergency Medicine; Emergency Provider Physician Assistant; PCP Family Medicine
DX: O26.891 Other specified pregnancy related conditions, first trimester (principal); R10.30 Lower abdominal pain, unspecified; O24.111 Pre-existing type 2 diabetes mellitus, in pregnancy, first trimester; Z87.891 Personal history of nicotine dependence; Z3A.01 Less than 8 weeks gestation of pregnancy
CPT/HCPCS: 36415; 76801; 76817; 80053; 81001; 83690; 84702; 85025; 87086; 99284

== ENCOUNTER 2025-03-30 12:06 | Outpatient (RCR) | payer BC, SELFPAY ==
--- NOTE | ~2025-03-30 | US_ITS ---
EXAMINATION: US OB <=14 wk fetus w TV DATE: 03/30/2025 12:07 CDT INDICATION: Spotting COMPARISON: 08/04/2024 TECHNIQUE: Real-time transabdominal obstetric ultrasound. FINDINGS: Last menstrual period is given as 02/09/2025 3 para 2 Estimated date of delivery by last menstrual period is 11/16/2025 The uterus measuring 11.3 x 4.4 x 6.4cm. A gestational sac is identified within the uterus. Mean gestational sac size measures 12.1 mm, corresponding to an approximate gestational age of 6 week s and 0 days. A possible pole is identified, with a crown-rump length that measures 0.5 cm, corresponding to an approximate gestational age of 6 weeks and 1 day. No cardiac activity is identified on today's examination. The right ovary measuring 2.7 x 2.5 x 2.1cm. The left ovary measuring 1.8 x 1.1 x 2.3cm. IMPRESSION: Single intrauterine gestation with an approximate gestational age of 6 weeks and 1 day, without cardiac activity identified. Please correlate these findings with the serum quantitative beta hCG, which was not resulted at the t patrick of this dictation. Reviewed, dictated and finalized at location A. IMPRESSION: Single intrauterine gestation with an approximate gestational age of 6 weeks an d 1 day, without cardiac activity identified. Please correlate these findings with the serum quantitative beta hCG, which was not resulted at the time of this dictation.
--- OUTSIDE RECORDS SUMMARY | 2025-03-30 11:08 | XMS_ITS | Encounter Summary ---
Author Organization [facility] Healthcare Address [address] [place] [address] Care Team Providers Care Beehive Kiln Supervisor Name Role Phone Uriel Walker MD Primary Care Provider [phone] Alisson Chavis CONCRETE MIXER OPERATOR Unavailable [phone] Encounter Details Date Type Department Care Team (Late st Contact Info) Description 03/23/2025 Orders Only [facility] Information Management [address] [place] [id number] Scanning, Provider Social History Tobacco Use Types [...] on file Legal Sex Female 1:53 AM BLEACHER PULP Gender Identity Female 11/22/2020 12:52 PM BLEACHER PULP Sexual Orientation Straight 11/22/2020 12 :52 PM BLEACHER PULP documented as of this encounter Plan of Treatment Not on file documented as of this encounter Procedures Procedure Name Priority Date/Time Associated Diagnosis Comments SCAN - RADIOLOGY/IMAGING 03/23/2025 documented in this encounter Results * SCAN - RADIOLOGY/IMAGING (03/23/2025) Anatomical Region Laterality Modality Other us Provider Scanning Final Result documented in this encounter Visit Diagnoses Not on filedocumented in this encounter Care Teams Beehive Kiln Supervisor Relationship Specialty Start Date End Date Uriel Walker MD [address] [place] [address] PCP - General Family Medicine 02/23/19 [place] [address] [address] [facility] [address] [place] [address] Nurse Practitioner Shellfish Sorter 12/01/24 documented as of this encounter
--- OUTSIDE RECORDS SUMMARY | 2025-03-30 11:08 | XMS_ITS | Clinical Summary ---
Author Organization [facility] Address [address] [place] [phone] Phone Care Team Providers Care Senior Cost Accountant Name Role Phone Unavailable Primary Care Provider [...] 2001 HPV VACCINES Completed 04/23/2016, 05/07/2013 Insurance [facility] BLUE ACCESS CHOICE
--- OUTSIDE RECORDS SUMMARY | 2025-03-30 11:08 | XMS_ITS | Clinical Summary ---
Author Organization [facility] Address [address] [place] [address] Care Team Providers Care Gun Stock Checker Name Role Phone Christine Peterson MD Primary Care Provider [phone] Source Comments [facility],non-owned Affiliates and Associated Physician Practices is amultiple site organization consisting of ambulatory clinics and hospital sitesin [place], [place], [place] and [place]. This disclosure is being madepursuant to the Care Everywhere program and may not contain all information available regarding this patient. Last updated 18.[facility] Allergies No known active allergies Medications * Be aware that medications may not be up to date on this document. Alwaysverify current medications with the patient. Lancets (MICROLET) [facility] Use 5-9 Each once daily Use to [...] Glucagon (BAQSIMI ONE PACK) 3 MG/DOSE POWD Bodega 3 mg into the nose as needed [...] and anxiety without thoughts of self harm. [facility] recommendations: 1. I reviewed the [...] in the breast milk. 3. 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 [facility] recommendations: 1. Start magnesium supplement to [...] from birthweights. I advised Brandie that the [employer] recommends delivery [...] sweetened beverages. 3. Close contact with our public health educator to optimize glycemic control on at [...] glycemic control and surveillance. 9. After hours [facility] triage number provided to call with concerns. 10. Sent with labs today for repeat HgA1c and CMP. Family history of congenital heart defect 2020 Overview (03/26/2021): FOB with hypoplastic left heart. 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 Normal echocardiogram with [facility]. Resolved Problems Problem Noted Date Diagnosed Date Resolved Date Dysuria during in third trimester 06/13/2021 04/30/2022 Assessment & Plan (06/13/2021 5:00 PM CDT): Dysuria present intermittently with 1+ urine protein, patient is normotensive. Reports UTI that was treated in the 2nd trimester. [facility] recommendations: 1. Sent with lab requisition to have UA and culture collected at local lab today. 2. Alert OB if worsening symptoms before results. Supervision of normal first 03/26/2021 04/30/2022 Overview (03/26/2021): O Neg; AB: Neg, Immune, Rpr: NR, HIV: NR, Hbsag: NR H/h/p: 13.1 / 39.8 / 401 Elevated hemoglobin A1c 05/22/201603/04 Overview (08/25/2018): May 04, 2016 ([facility] in [place], [place]) hemoglobin A1c 6.2% (< 5.7), TSH 2.75 uIU/mL (0.465-4.68), free T4 0.96 ng/dL (0.78-2.19), ALT 24 U/L (9-52), cholesterol 160 mg/dL (200); triglyceride 117 mg/dL (< 150), HDL-cholesterol 45 mg/dL (> 35), LDL-cholesterol 81 mg/dL (< 130) May 22, 2018 - hemoglobin A1c 5.8% ([facility]) Jul, 2018 - elevated hemoglobin A1c at well vocational childcare teacher visit (results unavailable) Assessment & Plan (08/25/2018 [...] TSH. RTC in 2 weeks to see motion picture actor, 3 months to see . Snoring 05/17/2011 [...] on file Legal Sex Female 5:41 AM ACCIDENT INVESTIGATOR Gender Identity Not on file Sexual Orientation [...] 10:00 AM CDT Height 165.1 cm (5' 5) 04/18/2022 2:08 PM CDT Body Mass Index [...] complete [place] [address] MEDICAID - [place] [facility] MEDICAID - OUT OF STATE Care Teams Gun Stock Checker Relationship Specialty Start Date End Date Christine Peterson MD 2 [facility] [address] [place] [phone] PCP - General Pediatrics 07/29/18
--- OUTSIDE RECORDS SUMMARY | 2025-03-30 11:08 | XMS_ITS | Referral Summary ---
Author Organization [facility] Medical Office Building B Address [address] [place] [address] Care Team Providers Care Career Coordinator Name Role Phone Uriel Walker MD Primary Care Provider [phone] Alisson Chavis PHONE SPECIALIST Unavailable [phone] Encounters Date Type Department Care Team Description 03/23/2025 Orders Only [facility] Health Information Management [address] [place] [address] Scanning, Provider 01/19/2025 Results [facility] [address] [place] [address] Uriel Walker MD XR Hips Bilateral 2 Views W Pelvis 01/05/2025 9:14 AM CASING IN LINE FEEDER - 01/05/2025 11:59 PM CASING IN LINE FEEDER Hospital Encounter [facility] [address] [place] [address] Alisson Chavis NP Degeneration of intervertebral disc [...] 09/09/2023 Assessment & Plan (09/09/2023 11:06 AM CASING IN LINE FEEDER): Pain and tenderness on the radial side of bilateral wrists. Instructed to use thumb spica splint at night and continue ibuprofen as needed. Type 2 diabetes mellitus wit h hyperglycemia, without long-term current use of insulin 06/06/2023 Assessment & Plan (08/17/2024 11:12 AM CDT): Ozempic and metformin refilled. Assessment & Plan (09/09/2023 11:17 AM CASING IN LINE FEEDER): Continue checking glucose daily. Increase metformin to [...] 06/06/2023 Assessment & Plan (09/09/2023 10:45 AM CASING IN LINE FEEDER): Improving after physical therapy. Encouraged continuing home [...] today. Would like to have completed at [facility] in [place]. Aware that RN will call for auth & call [facility] to set up testing. Starting new [...] heard from us regarding CT authorization. Alexia REIS abdominal pain 06/26/2020 Assessment & Plan (06/26/2020 12:51 PM CDT): CT abd/pelvis w/contrast ordered as well as labs. Would like to do hold & call today. Would like to have completed at [facility] in [place]. Aware that RN will call for auth & call [facility] to set up testing. Starting new [...] Plan (06/26/2020 12:50 PM CDT): 06/26/20 A1C=6.0% YJ=002 HDL=44 TI=296 BGS=774 TC/HDL=3.8 Copy of results as well as [...] urine in office. Will check labs at [facility]. Assessment & Plan (02/17/2020 6:18 [...] 2 meals/day (school lunch & meal at [employer] nightly when working). Stressed dietary changes. Need [...] to deal with bullying. Paperwork completed. Will fern picker when she comes to have PPD read and to receive influenza vaccine. [facility] 02/16/2020 Assessment & [...] healthier, we can set up appointment with lumber scaler/footwear machinery instructor. 3. Have an active lifestyle, strive for [...] whatever food is nearby when hungry. Declines lumber scaler. Has seen 2x at [facility]. Will make f/u appt in 1 month. Elevated hemoglobin A1c 05/22/201606/04 Overview (02/23/2019): May 04, 2016 ([facility] in [place], [place]) hemoglobin A1c 6.2% (< 5.7), TSH 2.75 uIU/mL (0.465-4.68), free T4 0.96 ng/dL (0.78-2.19), ALT 24 U/L (9-52), cholesterol 160 mg/dL (200); triglyceride 117 mg/dL (< 150), HDL-cholesterol 45 mg/dL (> 35), LDL-cholesterol 81 mg/dL (< 130) May 22, 2018 - hemoglobin A1c 5.8% ([facility]) Jul, 2018 - elevated hemoglobin A1c at well child welfare counselor visit (results unavailable) Last Assessment & [...] on file Legal Sex Female 1:53 AM CASING IN LINE FEEDER Gender Identity Female 11/22/2020 12:52 PM CASING IN LINE FEEDER Sexual Orientation Straight 11/22/2020 12 :52 PM CASING IN LINE FEEDER Last Filed Vital Signs Vital Sign Reading Time Taken Comments Blood Pressure 128/74 01/05/2025 9:33 AM CASING IN LINE FEEDER Pulse 90 01/05/2025 9:33 AM CASING IN LINE FEEDER Temperature 36.4 C (97.5 F) 12/22/2024 9:08 AM CASING IN LINE FEEDER Respiratory Rate 16 01/05/2025 9:33 AM CASING IN LINE FEEDER Oxygen Saturation 98% 01/05/2025 9:33 AM CASING IN LINE FEEDER Inhaled Oxygen Concentration - - Weight 127.5 kg (281 lb 1.6 oz) 024 12:00 PM CASING IN LINE FEEDER Height 165.1 cm (5' 5) 10/11/2024 12:0 0 PM CASING IN LINE FEEDER Body Mass Index 46.78 10/11/2024 12:00 PM CASING IN LINE FEEDER Plan of Treatment Not on file Procedures Procedure Name Priority Date/Time Associated Diagnosis Comments SCAN - LABS 03/23/2025 SCAN - RADIOLOGY/IMAGING 03/23/2025 XR SACROILIAC JOINTS 3 OR MORE VIEWS Schedule Routine, Read Routine (OP Routine) 01/19/2025 10:57 AM CDT XR HIPS BILATERAL W PELVIS 2 VIEW Schedule Routine, Read Routine (OP Routine) 01/19/2025 10:57 AM CDT HM DIABETES EYE EXAM Routine 10/22/2023 EGFR Routine 10/06/2023 12:19 PM CASING IN LINE FEEDER New onset type 2 diabetes mellitus (HCC) HEMOGLOBIN A1C Routine 10/06/2023 12:19 PM CASING IN LINE FEEDER New onset type 2 diabetes mellitus (HCC) LIPID PANEL Routine 10/06/2023 12:19 PM CASING IN LINE FEEDER Encounter for screening for lipoid disorders ALBUMIN CREATININE RATIO, URINE Routine 10/06/2023 12:19 PM CASING IN LINE FEEDER New onset type 2 diabetes mellitus (HCC) from Last 3 Months or Most Recently Relevant to Health Maintenance Results * SCAN - RADIOLOGY/IMAGING (03/23/2025) Anatomical Region Laterality Modality Other Provider Scanning Final Result * SCAN - LABS (03/23/2025) us Provider Scanning Final Result * XR Hips Bilateral 2 Views W Pelvis (01/19/2025 10:57 AM CDT) Anatomical Region Laterality Modality Lower Extremities, Hip, Pelvis Bilateral R adiographic Imaging 01/19/2025 10:5 7 AM CDT Historical Provider MD MIRANDA XR PROCEDURES Final R esult * XR Sacroiliac Joints 3 or More Views (01/19/2025 10:57 AM CDT) Anatomical Region Laterality Modality Pelvis, Body N/A Radiographic Zaina ging 01/19/2025 10:5 7 AM CDT Historical Provider IMG XR PROCEDURES Final R esult * HM DIABETES EYE EXAM (10/22/2023) SCRIBED DIABETIC DILATED EYE EXAM Normal Historical Provider HEALTH MAINTENANCE Final Result * eGFR (10/06/2023 12:19 PM CASING IN LINE FEEDER) eGFR 128 mL/min/1. 73 m2 CONNIE ALSTON [...] was last reviewed 2021. Testing performed by: [facility], [address] [place] [address], [place]., [address] Blood 10/06/2023 12:1 9 PM CASING IN LINE FEEDER 10/06/2023 6:45 PM CASING IN LINE FEEDER Roseann Galvan NP LAB BLOOD ORDERABLES Final Result CONNIE ALSTON ([place]) 1 [facility] [place] [address] * Albumin Creatinine Ratio, Urine (10/06/2023 12:19 PM CASING IN LINE FEEDER) Pathologist [facility] Albumin Ur <12.0 mg/L [facility] AM H ([place]) Comment: Interpretive Data No reference range established. Current interpretive data was last revised 2019. Testing performed by: [facility], [address] [place] [address]., [address] Creatinine Ur 214.2 mg/dL [facility] ([place]) Comment: Interpretive Data No reference range established. Current interpretive data was last revised 2019. Testing performed by: [address] [address] Albumin Creatinine Ratio, Ur <6 1 - 29 mg/g [facility] ([place]) Comment:Testing performed by : [address] [address] Urine 10/06/2023 12:1 9 PM CASING IN LINE FEEDER 10/06/2023 6:05 PM CASING IN LINE FEEDER Roseann Galvan NP LAB URINE ORDERABLES Final Result [facility] ([place]) 1 [facility] Department [place] [address] * (ABNORMAL) Hemoglobin A1c (10/06/2023 12:19 PM CASING IN LINE FEEDER) [facility] Hgb A1C 7.5(H) 4.0 - 5.6 % [facility] ([place]) Comment:Testing performed by : [address] [address] Estimated Average Glucose 169 mg/dL [facility] ([place]) Comment: The ADA recommends reporting an estimated Average Glucose (eAG) with all Hemoglobin A1c results using the equation derived from a study of 507 normal and diabetic adults. Minority populations were underrepresented and children were not included. (Diabetes Care 31:0954-1637, 2008). The eAG is not equivalent to a fasting glucose. Testing performed by: [address] [address] Blood 10/06/2023 12:1 9 PM CASING IN LINE FEEDER 10/06/2023 6:05 PM CASING IN LINE FEEDER Roseann Galvan PHONE SPECIALIST LAB BLOOD ORDERABLES Final Result CONNIE ALECIA ([place]) 1 [facility] Department [place] [address] * (ABNORMAL) Lipid panel (10/06/2023 12:19 PM CASING IN LINE FEEDER) Cholesterol 169 30 - 199 mg/dL CONNIE [...] last revised on 2018. Testing performed by: [address], [address] Triglycerides 162(H) <=149 mg/dL CONNIE ALSTON ([place]) [...] last revised on 2018. Testing performed by: [address] [address] HDL 31(L) >=40 mg/dL CONNIE ALSTON ([place]) [...] last revised on 2018. Testing performed by: [facility], [address] [place] [address]., [address] LDL, calculated 106 <=129 mg/dL CONNIE ALSTON [...] last revised on 2018. Testing performed by: [facility], [address] [place] [address]., [address] Non-HDL Cholesterol 138 mg/dL CONNIE ALSTON ([place]) [...] last revised on 2018. Testing performed by: [address] [address] Chol/HDL ratio 5 CERNE Faby ALSTON ([place]) Comment:Testing performed by : [facility], [address] [place] [address]., [address] Blood 10/06/2023 12:1 9 PM CASING IN LINE FEEDER 10/06/2023 6:05 PM CASING IN LINE FEEDER Roseann Galvan PHONE SPECIALIST LAB BLOOD ORDERABLES Final Result [facility] ([place]) 1 [facility] Department [place] [address] from Last 3 Months or Most Recently Relevant to Health Maintenance Insurance IDMO What the Trend IN ANTHEM ACCESS IDPA BLUE ACCESS IN BLUE ACCESS IN Care Teams Career Coordinator Relationship Specialty Start Date End Date Uriel Walker MD [address] [place] [address] PCP - General Family Medicine 02/23/19 [place] [id number] [address] [facility] [address] [place] [address] Nurse Practitioner Paper Box Cutter 12/01/24
--- OUTSIDE RECORDS SUMMARY | 2025-03-30 11:08 | XMS_ITS | Clinical Summary ---
Author Organization [facility] Medical [facility] B Address [address] [place] [address] Care Team Providers Care Fireproof Door Assembler Name Role Phone Uriel Walker MD Primary Care Provider [phone] Alisson Chavis GENERAL MAINTENANCE TECHNICIAN Unavailable [phone] Allergies No known active allergies Medications blood-glucose [...] 09/09/2023 Assessment & Plan (09/09/2023 11:06 AM ANESTHESIOLOGY FACULTY): Pain and tenderness on the radial side of bilateral wrists. Instructed to use thumb spica splint at night and continue ibuprofen as needed. Type 2 diabetes mellitus wit h hyperglycemia, without long-term current use of insulin 06/06/2023 Assessment & Plan (08/17/2024 11:12 AM CDT): Ozempic and metformin refilled. Assessment & Plan (09/09/2023 11:17 AM ANESTHESIOLOGY FACULTY): Continue checking glucose daily. Increase metformin to [...] 06/06/2023 Assessment & Plan (09/09/2023 10:45 AM ANESTHESIOLOGY FACULTY): Improving after physical therapy. Encouraged continuing home [...] today. Would like to have completed at [facility] in [place]. Aware that RN will call for auth & call [facility] to set up testing. Starting new job [...] today. Would like to have completed at [facility] in [place]. Aware that RN will call for auth & call [facility] to set up testing. Starting new job [...] Plan (06/26/2020 12:50 PM CDT): 06/26/20 A1C=6.0% MV=230 HDL=44 FJ=345 FAM=951 TC/HDL=3.8 Copy of results as well as [...] urine in office. Will check labs at [facility]. Assessment & Plan (02/17/2020 6:18 [...] 2 meals/day (school lunch & meal at [employer] nightly when working). Stressed dietary changes. Need [...] to deal with bullying. Paperwork completed. Will order picker/assembler when she comes to have PPD read and to receive influenza vaccine. Encounter for medical examin [facility] to establish care 02/23/2019 02/16/2020 Assessment & [...] healthier, we can set up appointment with date pitter/highway truck driver. 3. Have an active lifestyle, strive for [...] whatever food is nearby when hungry. Declines date pitter. Has seen 2x at [facility]. Will make f/u appt in 1 month. Elevated hemoglobin A1c 05/22/201606/04 Overview (02/23/2019): May 04, 2016 ([facility] in [place], [place]) hemoglobin A1c 6.2% (< 5.7), TSH 2.75 uIU/mL (0.465-4.68), free T4 0.96 ng/dL (0.78-2.19), ALT 24 U/L (9-52), cholesterol 160 mg/dL (200); triglyceride 117 mg/dL (< 150), HDL-cholesterol 45 mg/dL (> 35), LDL-cholesterol 81 mg/dL (< 130) May 22, 2018 - hemoglobin A1c 5.8% ([facility]) Jul, 2018 - elevated hemoglobin A1c at well child life specialist visit (results unavailable) Last Assessment & Plan: [...] Department Care Team Description 03/23/2025 Orders Only [facility] Health Information Management [address] [place] [address] Scanning, Provider 01/19/2025 Results [facility] [address] [place] [phone] Uriel Walker MD XR Hips Bilateral 2 Views W Pelvis 01/05/2025 9:14 AM ANESTHESIOLOGY FACULTY - 01/05/2025 11:59 PM ANESTHESIOLOGY FACULTY Hospital Encounter [facility] [id number] [place] [address] Alisson Chavis NP Degeneration of intervertebral disc [...] on file Legal Sex Female 1:53 AM ANESTHESIOLOGY FACULTY Gender Identity Female 11/22/2020 12:52 PM ANESTHESIOLOGY FACULTY Sexual Orientation Straight 11/22/2020 12 :52 PM ANESTHESIOLOGY FACULTY Obstetrics History Last Filed Vital Signs Vital Sign Reading Time Taken Comments Blood Pressure 128/74 01/05/2025 9:33 AM ANESTHESIOLOGY FACULTY Pulse 90 01/05/2025 9:33 AM ANESTHESIOLOGY FACULTY Temperature 36.4 C (97.5 F) 12/22/2024 9:08 AM ANESTHESIOLOGY FACULTY Respiratory Rate 16 01/05/2025 9:33 AM ANESTHESIOLOGY FACULTY Oxygen Saturation 98% 01/05/2025 9:33 AM ANESTHESIOLOGY FACULTY Inhaled Oxygen Concentration - - Weight 127.5 kg (281 lb 1.6 oz) 024 12:00 PM ANESTHESIOLOGY FACULTY Height 165.1 cm (5' 5) 10/11/2024 12:0 0 PM ANESTHESIOLOGY FACULTY Body Mass Index 46.78 10/11/2024 12:00 PM ANESTHESIOLOGY FACULTY Plan of Treatment Health Maintenance Due Date [...] 10/06/2023, 110 05/2023, 06/06/2023, Additional history exists Foot Exam [...] Routine 10/22/2023 EGFR Routine 10/06/2023 12:19 PM ANESTHESIOLOGY FACULTY New onset type 2 diabetes mellitus (HCC) HEMOGLOBIN A1C Routine 10/06/2023 12:19 PM ANESTHESIOLOGY FACULTY New onset type 2 diabetes mellitus (HCC) LIPID PANEL Routine 10/06/2023 12:19 PM ANESTHESIOLOGY FACULTY Encounter for screening for lipoid disorders ALBUMIN CREATININE RATIO, URINE Routine 10/06/2023 12:19 PM ANESTHESIOLOGY FACULTY New onset type 2 diabetes mellitus (HCC) from Last 3 Months or Most Recently Relevant to Health Maintenance Results * SCAN - RADIOLOGY/IMAGING (03/23/2025) Anatomical Region Laterality Modality Other us Provider Scanning Final Result * SCAN [...] (10/22/2023) SCRIBED DIABETIC DILATED EYE EXAM Normal Result [facility] Historical Provider HEALTH MAINTENANCE Final Result * eGFR (10/06/2023 12:19 PM ANESTHESIOLOGY FACULTY) eGFR 128 mL/min/1. 73 m2 CONNIE ALSTON [...] was last reviewed 2021. Testing performed by: [facility], [address] [place] [address], [place]., [address] Blood 10/06/2023 12:1 9 PM ANESTHESIOLOGY FACULTY 10/06/2023 6:45 PM ANESTHESIOLOGY FACULTY Roseann Galvan GENERAL MAINTENANCE TECHNICIAN LAB BLOOD ORDERABLES Final Result Performing Organization Address [facility]/ZIP Co de Phone Number [facility] ([place]) 1 [facility] [place] [address] * Albumin Creatinine Ratio, Urine (10/06/2023 12:19 PM ANESTHESIOLOGY FACULTY) Albumin Ur <12.0 mg/L [facility] ([place]) Comment: Interpretive Data No reference range established. Current interpretive data was last revised 2019. Testing performed by: [facility], [address] [place] [address]., [address] Creatinine Ur 214.2 mg/dL [facility] ([place]) Comment: Interpretive Data No reference range established. Current interpretive data was last revised 2019. Testing performed by: [facility], [address] [place] [address]., [address] Albumin Creatinine Ratio, Ur <6 1 - 29 mg/g [facility] ([place]) Comment:Testing performed by : [address] [address] Urine 10/06/2023 12:1 9 PM ANESTHESIOLOGY FACULTY 10/06/2023 6:05 PM ANESTHESIOLOGY FACULTY Roseann Galvan GENERAL MAINTENANCE TECHNICIAN LAB URINE ORDERABLES Final Result Performing Organization Address [facility] de Phone Number [facility] ([place]) 1 [facility] of [employer] [place] [address] * (ABNORMAL) Hemoglobin A1c (10/06/2023 12:19 PM ANESTHESIOLOGY FACULTY) Hgb A1C 7.5(H) 4.0 - 5.6 % [facility] ([place]) Comment:Testing performed by : [address] [address] Estimated Average Glucose 169 mg/dL [facility] ([place]) Comment: The ADA recommends reporting an estimated Average Glucose (eAG) with all Hemoglobin A1c results using the equation derived from a study of 507 normal and diabetic adults. Minority populations were underrepresented and children were not included. (Diabetes Care 31:1829-3497, 2008). The eAG is not equivalent to a fasting glucose. Testing performed by: [facility], [address] [place] [address]., [address] Blood 10/06/2023 12:1 9 PM ANESTHESIOLOGY FACULTY 10/06/2023 6:05 PM ANESTHESIOLOGY FACULTY Roseann ReemaKarl Galvan GENERAL MAINTENANCE TECHNICIAN LAB BLOOD ORDERABLES Final Result CONNIE ALSTON ([place]) 1 [facility] Department [place] [address] * (ABNORMAL) Lipid panel (10/06/2023 12:19 PM ANESTHESIOLOGY FACULTY) Cholesterol 169 30 - 199 mg/dL CONNIE [...] last revised on 2018. Testing performed by: [facility], [address] [place] [address]., [address] Triglycerides 162(H) <=149 mg/dL CONNIE ALSTON ([place]) [...] last revised on 2018. Testing performed by: [facility], [address] [place] [address]., [address] HDL 31(L) >=40 mg/dL CONNIE ALSTON ([place]) [...] last revised on 2018. Testing performed by: [facility], [address] [place] [address]., [address] LDL, calculated 106 <=129 mg/dL CONNIE ALSTNO ([place]) Comment: Interpretive Data Ages < or [...] last revised on 2018. Testing performed by: [facility], [address] [place] [address]., [address] Non-HDL Cholesterol 138 mg/dL CONNIE ALSTON ([place]) [...] last revised on 2018. Testing performed by: [facility], [address] [place] [address]., [address] Chol/HDL ratio 5 [facility] ([place]) Comment:Testing performed by : [facility], [address] [place] [address], [facility], [address] Blood 10/06/2023 12:1 9 PM ANESTHESIOLOGY FACULTY 10/06/2023 6:05 PM ANESTHESIOLOGY FACULTY Roseann Galvan GENERAL MAINTENANCE TECHNICIAN LAB BLOOD ORDERABLES Final Result CONNIE ALECIA ([place]) 1 [facility] Department [place] [address] from Last 3 Months or Most Recently Relevant to Health Maintenance Insurance [employer] ANTHEM ACCESS Member Subscriber Plan / Payer (Ef fective 2018-Present) Name:Brandie Torres Relation to Subscriber:Child Name:BRANDI WILDER Date of :1982 (Home) Address: [address] [place] [id number] Payer ID:[id number] (NAIC) Type: ALLIANCE Address: [phone] [facility] [place] Care Teams Fireproof Door Assembler Relationship Specialty Start Date End Date Uriel Walker MD [address] [place] [address] PCP - General Family Medicine 02/23/19 [place] [address] [address] Nurse Practitioner Maintenance Leader 12/01/24
[2025-03-30 13:04] LABS: Beta HCG Quantitative 7183.10 mIU/ML
[2025-03-30] MEDS: RHO(D) IMMUNE GLOBULIN 300 MCG/2 ML SYRINGE IM (14:30)
== END 2025-06-28 23:59 | disposition home or self-care (01) ==
LOC: ANHLAB 12:06
PROVIDERS: PCP Family Medicine; Visit Provider Obstetrics & Gynecology
DX: O26.859 Spotting complicating pregnancy, unspecified trimester (principal); O28.3 Abnormal ultrasonic finding on antenatal screening of mother; Z29.13 Encounter for prophylactic Rho(D) immune globulin; O36.0190 Maternal care for anti-D [Rh] antibodies, unspecified trimester, not applicable or unspecified; Z3A.00 Weeks of gestation of pregnancy not specified
CPT/HCPCS: 36415; 76801; 76817; 84702; 85461; 86850; 86900; 86901; 90384; 96372; J2790

== ENCOUNTER 2025-04-06 13:30 | Outpatient (CLI) | payer BC, MEDICAID, SELFPAY ==
--- NOTE | ~2025-04-06 | US_ITS ---
US OB <=14 wk fetus w TV Ordering provider: Chito Velasquez MD History: . O36.80X0 - with inconclusive viability, n... . Comparison: None. Technique: Transabdominal and endovaginal ultrasound of the pelvis (Doppler ultrasound interrogation techniques used as needed for this exam.) FINDINGS: CERVIX: Normal. UTERUS: Measures 9.5x 5.6x 7.9 cm in length which is within normal limits and is anteverted. No myom etrial masses. Gestational sac is noted which measures 1.4 cm equivalent to 6 weeks and 2 days. No yolk sac seen. pole: Measures 0.47 cm equivalent to 6 weeks and 1 day No heart tone is noted. CUL DE SAC: No free fluid. RIGHT OVARY: Normal in size measuring 1.8x 1.4x 1.9 cm. Normal echotexture. Doppler vascular flow pre sent. LEFT OVARY: Not demonstrated. ADNEXA: Normal. No mass. IMPRESSION: Intrauterine gestational sac equal to 6 weeks and 2 days. pole with no heart tone equal to 6 weeks and 1 day. Follow-up and clinical correlation a dvised. Otherwise, normal pelvic ultrasound. Reviewed, dictated and finalized at location A. IMPRESSION: Intrauterine gestational sac equal to 6 weeks and 2 days. pole with no heart tone equal to 6 weeks and 1 day. Follow-up and clinical correlation advised. Otherwise, normal pelvic ultrasound.
== END 2025-04-06 13:31 | disposition home or self-care (01) ==
PROVIDERS: PCP Family Medicine; Visit Provider Obstetrics & Gynecology
DX: O36.80X0 Pregnancy with inconclusive fetal viability, not applicable or unspecified (principal)
CPT/HCPCS: 76801; 76817

== ENCOUNTER 2025-04-18 11:48 | Outpatient (CLI) | payer BC, SELFPAY ==
[2025-04-18 12:17] LABS: Hematocrit 38.5 % (35.0-49.0); Hemoglobin 12.6 g/dL (12.0-15.0); Mean Corpuscular HGB Conc 32.7 g/dL (32-36); Mean Corpuscular Volume 82.6 fL (78.0-102.0); Mean Platelet Volume 8.4 fl (9.2-11.8); Platelet Count Result 346 K/mm3 (150-420); Red Blood Count 4.66 M/mm3 (4.20-5.40); Red Cell Distribution Width 12.3 % (11.6-14.4); White Blood Count 7.6 K/mm3 (4.8-10.8)
--- OUTSIDE RECORDS SUMMARY | 2025-04-18 12:59 | XMS_ITS | Clinical Summary ---
Author Organization [facility] Address [address] [place] [phone] Phone Care Team Providers Care Fraud Examiner Name Role Phone Unavailable Primary Care Provider [...] 2001 HPV VACCINES Completed 04/23/2016, 05/07/2013 Insurance [facility] BLUE ACCESS CHOICE Member Subscriber Plan / Payer (Ef fective 2021-Present) Name:Brandie Torres Relation to Subscriber:Self Name:Brandie Torres Payer ID:[id number] ([facility]) Type:PPO
--- OUTSIDE RECORDS SUMMARY | 2025-04-18 12:59 | XMS_ITS | Referral Summary ---
Author Organization [facility] Address [address] [place] [address] Care Team Providers Care Cinder Block Mason Name Role Phone Uriel Walker MD Primary Care Provider [phone] Alisson Chavis PRINCIPAL CYBER ENGINEER Unavailable [phone] Encounters Date Type Department Care Team Description 04/06/2025 Orders Only [facility] [address] [place] [address] Scanning, Provider 03/30/2025 Orders Only [facility] Information [facility] [address] [place] [address] Scanning, Provider 03/23/2025 Orders Only [facility] Information [facility] [address] [place] [address] Scanning, Provider 01/19/2025 Results Follow-[facility] [address] [place] [address] Uriel Walker MD XR Hips Bilateral 2 Views W Pelvis from Last 3 Months Allergies No known [...] placed. Will continue with PT and monitoring. TendinitisCampa's 09/09/2023 Assessment & Plan (09/09/2023 11:06 AM SALES SUPPORT TECHNICIAN): Pain and tenderness on the radial side of bilateral wrists. Instructed to use thumb spica splint at night and continue ibuprofen as needed. Type 2 diabetes mellitus wit h hyperglycemia, without long-term current use of insulin 06/06/2023 Assessment & Plan (08/17/2024 11:12 AM CDT): Ozempic and metformin refilled. Assessment & Plan (09/09/2023 11:17 AM SALES SUPPORT TECHNICIAN): Continue checking glucose daily. Increase metformin to [...] 06/06/2023 Assessment & Plan (09/09/2023 10:45 AM SALES SUPPORT TECHNICIAN): Improving after physical therapy. Encouraged continuing home [...] today. Would like to have completed at [facility]. Aware that RN will call for auth & call [facility] to set up testing. Starting new [...] today. Would like to have completed at [facility]. Aware that RN will call for auth & call [facility] to set up testing. Starting new [...] Plan (06/26/2020 12:50 PM CDT): 06/26/20 A1C=6.0% EZ=810 HDL=44 RE=871 YPR=425 TC/HDL=3.8 Copy of results as well as [...] urine in office. Will check labs at [facility] in [place]. Assessment & Plan (02/17/2020 6:18 PM CDT): [...] 2 meals/day (school lunch & meal at [employer] nightly when working). Stressed dietary changes. Need [...] to deal with bullying. Paperwork completed. 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 3. Have an active lifestyle, strive for [...] whatever food is nearby when hungry. Declines crane operator. Has seen 2x at [facility]. Will make f/u appt in 1 month. Elevated hemoglobin A1c 05/22/201606/04 Overview (02/23/2019): May 04, 2016 ([facility] in [place], [place]) hemoglobin A1c 6.2% (< 5.7), TSH 2.75 uIU/mL (0.465-4.68), free T4 0.96 ng/dL (0.78-2.19), ALT 24 U/L (9-52), cholesterol 160 mg/dL (200); triglyceride 117 mg/dL (< 150), HDL-cholesterol 45 mg/dL (> 35), LDL-cholesterol 81 mg/dL (< 130) May 22, 2018 - hemoglobin A1c 5.8% ([facility]) Jul, 2018 - elevated hemoglobin A1c at well child protection specialist visit (results unavailable) Last Assessment & [...] file Legal Sex Female 1:53 AM SALES SUPPORT TECHNICIAN Gender Identity Female 11/22/2020 12:52 PM SALES SUPPORT TECHNICIAN Sexual Orientation Straight 11/22/2020 12 :52 PM SALES SUPPORT TECHNICIAN Last Filed Vital Signs Vital Sign Reading Time Taken Comments Blood Pressure 128/74 01/05/2025 9:33 AM SALES SUPPORT TECHNICIAN Pulse 90 01/05/2025 9:33 AM SALES SUPPORT TECHNICIAN Temperature 36.4 C (97.5 F) 12/22/2024 9:08 AM SALES SUPPORT TECHNICIAN Respiratory Rate 16 01/05/2025 9:33 AM SALES SUPPORT TECHNICIAN Oxygen Saturation 98% 01/05/2025 9:33 AM SALES SUPPORT TECHNICIAN Inhaled Oxygen Concentration - - Weight 127.5 kg (281 lb 1.6 oz) 024 12:00 PM SALES SUPPORT TECHNICIAN Height 165.1 cm (5' 5) 10/11/2024 12:0 0 PM SALES SUPPORT TECHNICIAN Body Mass Index 46.78 10/11/2024 12:00 PM SALES SUPPORT TECHNICIAN Plan of Treatment Not on file Procedures Procedure Name Priority Date/Time Associated Diagnosis Comments SCAN - RADIOLOGY/IMAGING 04/06/2025 SCAN - LABS 03/30/2025 SCAN - RADIOLOGY/IMAGING 03/30/2025 SCAN - LABS 03/23/2025 SCAN - RADIOLOGY/IMAGING 03/23/2025 XR SACROILIAC JOINTS 3 OR MORE VIEWS Schedule Routine, Read Routine (OP Routine) 01/19/2025 10:57 AM CDT XR HIPS BILATERAL W PELVIS 2 VIEW Schedule Routine, Read Routine (OP Routine) 01/19/2025 10:57 AM CDT HM DIABETES EYE EXAM Routine 10/22/2023 EGFR Routine 10/06/2023 12:19 PM SALES SUPPORT TECHNICIAN New onset type 2 diabetes mellitus (HCC) HEMOGLOBIN A1C Routine 10/06/2023 12:19 PM SALES SUPPORT TECHNICIAN New onset type 2 diabetes mellitus (HCC) LIPID PANEL Routine 10/06/2023 12:19 PM SALES SUPPORT TECHNICIAN Encounter for screening for lipoid disorders ALBUMIN CREATININE RATIO, URINE Routine 10/06/2023 12:19 PM SALES SUPPORT TECHNICIAN New onset type 2 diabetes mellitus (HCC) from Last 3 Months or Most Recently Relevant to Health Maintenance Results * SCAN - RADIOLOGY/IMAGING (04/06/2025) Anatomical Region Laterality Modality Other us Provider Scanning Final Result * SCAN - RADIOLOGY/IMAGING (03/30/2025) Anatomical Region Laterality Modality Other us Provider Scanning Final Result * SCAN - LABS (03/30/2025) us Provider Scanning Edited Result - Final * SCAN - RADIOLOGY/IMAGING (03/23/2025) Anatomical Region Laterality Modality Other us Provider Scanning Final Result * SCAN - LABS (03/23/2025) us Provider Scanning Edited Result - Final * XR Hips Bilateral 2 Views W Pelvis (01/19/2025 10:57 AM CDT) Anatomical Region Laterality Modality Lower Extremities, Hip, Pelvis Bilateral R adiographic Imaging 01/19/2025 10:5 7 AM CDT us Historical Provider MD MIRANDA XR PROCEDURES Final [...] Final Result * eGFR (10/06/2023 12:19 PM SALES SUPPORT TECHNICIAN) eGFR 128 mL/min/1. 73 m2 CONNIE ALSTON [...] was last reviewed 2021. Testing performed by: [facility], [address] [place] [address], [place]., [address] Blood 10/06/2023 12:1 9 PM SALES SUPPORT TECHNICIAN 10/06/2023 6:45 PM SALES SUPPORT TECHNICIAN Roseann Galvan NP LAB BLOOD ORDERABLES Final Result CONNIE ALSTON ([place]) 1 [facility] [place] [address] * Albumin Creatinine Ratio, Urine (10/06/2023 12:19 PM SALES SUPPORT TECHNICIAN) Albumin Ur <12.0 mg/L CONNIE [facility] ([place]) Comment: Interpretive Data No reference range established. Current interpretive data was last revised 2019. Testing performed by: [facility], [address] [place] [address]., [address] Creatinine Ur 214.2 mg/dL [facility] ([place]) Comment: Interpretive Data No reference range established. Current interpretive data was last revised 2019. Testing performed by: [address] [address] Albumin Creatinine Ratio, Ur <6 1 - 29 mg/g CONNIE ALSTON ([place]) Comment:Testing performed by : [address] [address] Urine 10/06/2023 12:1 9 PM SALES SUPPORT TECHNICIAN 10/06/2023 6:05 PM SALES SUPPORT TECHNICIAN Roseann Galvan PRINCIPAL CYBER ENGINEER LAB URINE ORDERABLES Final Result CONNIE [facility] ([place]) 1 [facility] [place] [address] * (ABNORMAL) Hemoglobin A1c (10/06/2023 12:19 PM SALES SUPPORT TECHNICIAN) Hgb A1C 7.5(H) 4.0 - 5.6 % [facility] ([place]) Comment:Testing performed by : [address] [address] Estimated Average Glucose 169 mg/dL [facility] ([place]) Comment: The ADA recommends reporting an estimated Average Glucose (eAG) with all Hemoglobin A1c results using the equation derived from a study of 507 normal and diabetic adults. Minority populations were underrepresented and children were not included. (Diabetes Care 31:4669-1683, 2008). The eAG is not equivalent to a fasting glucose. Testing performed by: [address] [address] Blood 10/06/2023 12:1 9 PM SALES SUPPORT TECHNICIAN 10/06/2023 6:05 PM SALES SUPPORT TECHNICIAN Roseann Galvan NP LAB BLOOD ORDERABLES Final Result CARLOSETHEL ALSTON ([place]) 1 [facility] [place] [address] * (ABNORMAL) Lipid panel (10/06/2023 12:19 PM SALES SUPPORT TECHNICIAN) Cholesterol 169 30 - 199 mg/dL CONNIE [...] last revised on 2018. Testing performed by: [facility], [address] [place] [address]., [address] Triglycerides 162(H) <=149 mg/dL CONNIE ALSTON ([place]) [...] last revised on 2018. Testing performed by: [facility], [address] [place] [address]., [address] HDL 31(L) >=40 mg/dL CONNIE ALSTON ([place]) [...] last revised on 2018. Testing performed by: [facility], [address] [place] [address]., [address] LDL, calculated 106 <=129 mg/dL CONNIE ALSTON [...] last revised on 2018. Testing performed by: [address] [address] Non-HDL Cholesterol 138 mg/dL CONNIE ALSTON ([place]) [...] last revised on 2018. Testing performed by: [address] [address] Chol/HDL ratio 5 TURNER ALSTON ([place]) Comment:Testing performed by : [address], [place]., [address] Blood 10/06/2023 12:1 9 PM SALES SUPPORT TECHNICIAN 10/06/2023 6:05 PM SALES SUPPORT TECHNICIAN Roseann Galvan NP LAB BLOOD ORDERABLES Final Result [facility] ([place]) 1 [facility] [place] [address] from Last 3 Months or Most Recently Relevant to Health Maintenance Insurance [employer] [address] [address] [place] [address] [id number] [place] [address] [facility] Care Teams Cinder Block Mason Relationship Specialty Start Date End Date [place] [address] PCP - General Family Medicine 02/23/19 [place] [address] [address] Nurse Practitioner Test Driver 12/01/24
--- OUTSIDE RECORDS SUMMARY | 2025-04-18 12:59 | XMS_ITS | Clinical Summary ---
Author Organization [facility] Address [address] [place] [address] Care Team Providers Care Rigging Worker Name Role Phone Uriel Walker MD Primary Care Provider [phone] Alisson Chavis ENTRY CLERK Unavailable [phone] Allergies No known active allergies Medications blood-glucose [...] 09/09/2023 Assessment & Plan (09/09/2023 11:06 AM ARTIST SCIENTIFIC): Pain and tenderness on the radial side of bilateral wrists. Instructed to use thumb spica splint at night and continue ibuprofen as needed. Type 2 diabetes mellitus wit h hyperglycemia, without long-term current use of insulin 06/06/2023 Assessment & Plan (08/17/2024 11:12 AM CDT): Ozempic and metformin refilled. Assessment & Plan (09/09/2023 11:17 AM ARTIST SCIENTIFIC): Continue checking glucose daily. Increase metformin to [...] 06/06/2023 Assessment & Plan (09/09/2023 10:45 AM ARTIST SCIENTIFIC): Improving after physical therapy. Encouraged continuing home [...] today. Would like to have completed at [facility] in [place]. Aware that RN will call for auth & call [facility] to set up testing. Starting new [...] today. Would like to have completed at [facility] in [place]. Aware that RN will call for auth & call [facility] to set up testing. Starting new [...] Plan (06/26/2020 12:50 PM CDT): 06/26/20 A1C=6.0% CI=713 HDL=44 LZ=262 ZTM=022 TC/HDL=3.8 Copy of results as well as [...] urine in office. Will check labs at [facility]. Assessment & Plan (02/17/2020 6:18 [...] 2 meals/day (school lunch & meal at [employer] nightly when working). Stressed dietary changes. Need [...] receive influenza vaccine. Encounter for medical examin [facility] to establish care 02/23/2019 02/16/2020 Assessment & [...] healthier, we can set up appointment with landfill attendant/landfill attendant. 3. Have an active lifestyle, strive for [...] whatever food is nearby when hungry. Declines landfill attendant. Has seen 2x at [facility]. Will make f/u appt in 1 month. Elevated hemoglobin A1c 05/22/201606/04 Overview (02/23/2019): May 04, 2016 ([facility] in [place], [place]) hemoglobin A1c 6.2% (< 5.7), TSH 2.75 uIU/mL (0.465-4.68), free T4 0.96 ng/dL (0.78-2.19), ALT 24 U/L (9-52), cholesterol 160 mg/dL (200); triglyceride 117 mg/dL (< 150), HDL-cholesterol 45 mg/dL (> 35), LDL-cholesterol 81 mg/dL (< 130) May 22, 2018 - hemoglobin A1c 5.8% ([facility]) Jul, 2018 - elevated hemoglobin A1c at well child development teacher visit (results unavailable) Last Assessment & [...] Department Care Team Description 04/06/2025 Orders Only [facility] Health Information Management [address] [place] [address] Scanning, Provider 03/30/2025 [facility] [address] [place] [address] Scanning, Provider 03/23/2025 Orders Only [facility] Information Management [address] [place] [address] Scanning, Provider 01/19/2025 Results [facility] [address] [place] [address] Uriel Walker MD XR Hips Bilateral 2 Views W Pelvis from Last 3 Months Immunizations Immunization Administration [...] on file Legal Sex Female 1:53 AM ARTIST SCIENTIFIC Gender Identity Female 11/22/2020 12:52 PM ARTIST SCIENTIFIC Sexual Orientation Straight 11/22/2020 12 :52 PM ARTIST SCIENTIFIC Obstetrics History Last Filed Vital Signs Vital Sign Reading Time Taken Comments Blood Pressure 128/74 01/05/2025 9:33 AM ARTIST SCIENTIFIC Pulse 90 01/05/2025 9:33 AM ARTIST SCIENTIFIC Temperature 36.4 C (97.5 F) 12/22/2024 9:08 AM ARTIST SCIENTIFIC Respiratory Rate 16 01/05/2025 9:33 AM ARTIST SCIENTIFIC Oxygen Saturation 98% 01/05/2025 9:33 AM ARTIST SCIENTIFIC Inhaled Oxygen Concentration - - Weight 127.5 kg (281 lb 1.6 oz) 024 12:00 PM ARTIST SCIENTIFIC Height 165.1 cm (5' 5) 10/11/2024 12:0 0 PM ARTIST SCIENTIFIC Body Mass Index 46.78 10/11/2024 12:00 PM ARTIST SCIENTIFIC Plan of Treatment Health Maintenance Due Date [...] 10/06/2024 3, 02/18/2020 Lipid Panel 10/06/2024 10/06/2023, 11/0 05/2023, 06/26/2020, Additional history exists eGFR 10/06/2024 10/06/2023, 02/0 02/2022, 09/27/2020, Additional history exists Dilated Eye [...] Routine 10/22/2023 EGFR Routine 10/06/2023 12:19 PM ARTIST SCIENTIFIC New onset type 2 diabetes mellitus (HCC) HEMOGLOBIN A1C Routine 10/06/2023 12:19 PM ARTIST SCIENTIFIC New onset type 2 diabetes mellitus (HCC) LIPID PANEL Routine 10/06/2023 12:19 PM ARTIST SCIENTIFIC Encounter for screening for lipoid disorders ALBUMIN CREATININE RATIO, URINE Routine 10/06/2023 12:19 PM ARTIST SCIENTIFIC New onset type 2 diabetes mellitus (HCC) [...] 10:5 7 AM CDT Historical Provider MD IMG XR PROCEDURES Final R esult * XR Sacroiliac Joints 3 or More Views (01/19/2025 10:57 AM CDT) Anatomical Region Laterality Modality Pelvis, Body N/A Radiographic Zaina ging 01/19/2025 10:5 7 AM CDT Historical Provider IMG XR PROCEDURES Final R esult * HM DIABETES EYE EXAM (10/22/2023) SCRIBED DIABETIC DILATED EYE EXAM Normal [facility] Provider HEALTH MAINTENANCE Final Result * eGFR (10/06/2023 12:19 PM ARTIST SCIENTIFIC) eGFR 128 mL/min/1. 73 m2 CONNIE ALSTON [...] was last reviewed 2021. Testing performed by: [facility], [address] [place] [address], [place]., [address] Blood 10/06/2023 12:1 9 PM ARTIST SCIENTIFIC 10/06/2023 6:45 PM ARTIST SCIENTIFIC Roseann Galvan ENTRY CLERK LAB BLOOD ORDERABLES Final Result Performing Organization Address [facility] Co de Phone Number CONNIE ALSTON ([place]) 1 [facility] [place] [address] * Albumin Creatinine Ratio, Urine (10/06/2023 12:19 PM ARTIST SCIENTIFIC) Albumin Ur <12.0 mg/L [facility] ([place]) Comment: Interpretive Data No reference range established. Current interpretive data was last revised 2019. Testing performed by: [facility], [address] [place] [address]., [address] Creatinine Ur 214.2 mg/dL [facility] ([place]) Comment: Interpretive Data No reference range established. Current interpretive data was last revised 2019. Testing performed by: [facility], [address] [place] [address]., [address] Albumin Creatinine Ratio, Ur <6 1 - 29 mg/g [facility] ([place]) Comment:Testing performed by : [facility], [address] [place] [address]., [address] Urine 10/06/2023 12:1 9 PM ARTIST SCIENTIFIC 10/06/2023 6:05 PM ARTIST SCIENTIFIC Roseann Galvan ENTRY CLERK LAB URINE ORDERABLES Final Result Performing Organization Address [facility] Co de Phone Number CONNIE ALSTON ([place]) 1 [facility] [place] [address] * (ABNORMAL) Hemoglobin A1c (10/06/2023 12:19 PM ARTIST SCIENTIFIC) Hgb A1C 7.5(H) 4.0 - 5.6 % [facility] ([place]) Comment:Testing performed by : [address] [address] Estimated Average Glucose 169 mg/dL [facility] ([place]) Comment: The ADA recommends reporting an estimated Average Glucose (eAG) with all Hemoglobin A1c results using the equation derived from a study of 507 normal and diabetic adults. Minority populations were underrepresented and children were not included. (Diabetes Care 31:1668-4872, 2008). The eAG is not equivalent to a fasting glucose. Testing performed by: [facility], [address] [place] [address]., [address] Blood 10/06/2023 12:1 9 PM ARTIST SCIENTIFIC 10/06/2023 6:05 PM ARTIST SCIENTIFIC Roseann Galvan NP LAB BLOOD ORDERABLES Final Result CONNIE ALSTON ([place]) 1 [facility] Department [place] [address] * (ABNORMAL) Lipid panel (10/06/2023 12:19 PM ARTIST SCIENTIFIC) Cholesterol 169 30 - 199 mg/dL CONNIE [...] last revised on 2018. Testing performed by: [facility], [address] [place] [address], [place]., [address] Triglycerides 162(H) <=149 mg/dL CONNIE ALSTON ([place]) [...] last revised on 2018. Testing performed by: [facility], [address] [place] [address]., [address] HDL 31(L) >=40 mg/dL [facility] ([place]) [...] last revised on 2018. Testing performed by: [facility], [address] [place] [address]., [address] LDL, calculated 106 <=129 mg/dL [facility] [...] last revised on 2018. Testing performed by: [facility], [address] [place] [address]., [address] Non-HDL Cholesterol 138 mg/dL [facility] ([place]) [...] last revised on 2018. Testing performed by: [facility], [address] [place] [address]., [address] Chol/HDL ratio 5 TURNER Faby ALSTON ([place]) Comment:Testing performed by : [facility], [address] [place] [address]., [address] Blood 10/06/2023 12:1 9 PM ARTIST SCIENTIFIC 10/06/2023 6:05 PM ARTIST SCIENTIFIC Roseann Galvan ENTRY CLERK LAB BLOOD ORDERABLES Final Result CONNIE ALECIA ([place]) 1 [facility] [place] [address] from Last 3 Months or Most Recently Relevant to Health Maintenance Insurance [employer] [facility] Member Subscriber Plan / Payer (Ef fective 2018-Present) Name:Brandie Torres Relation to Subscriber:Child Name:VICKIEGIANFRANCOARIASBRANDI Date of :1982 (Home) Address: [address] [place] [id number] Payer ID:[id number] (NAIC) Type:[facility] Address: [phone] [facility] [employer] [facility] Care Teams Rigging Worker Relationship Specialty Start Date End Date Uriel Walker MD [address] [place] [address] PCP - General Family Medicine 02/23/19 [place] [address] [address] Nurse Practitioner Game Developer 12/01/24
--- OUTSIDE RECORDS SUMMARY | 2025-04-18 12:59 | XMS_ITS | Clinical Summary ---
Author Organization [facility] Point Address [address] [place] [address] Care Team Providers Care Obstetrician Gynecologist Name Role Phone Christine Peterson MD Primary Care Provider [phone] Source Comments [facility] Point,non-owned Affiliates and Associated Physician Practices is amultiple site organization consisting of ambulatory clinics and hospital sitesin [place], [place], [place]. This disclosure is being madepursuant to the Care Everywhere program and may not contain all information available regarding this patient. Last updated 18.[facility] Point Allergies No known active allergies Medications * Be aware that medications may not be up to date on this document. Alwaysverify current medications with the patient. [facility] ([facility] Use 5-9 Each once daily Use to [...] Glucagon (BAQSIMI ONE PACK) 3 MG/DOSE POWD Venedocia 3 mg into the nose as needed [...] and anxiety without thoughts of self harm. [facility] recommendations: 1. I reviewed the risks [...] in the breast milk. 3. 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 [facility] recommendations: 1. Start magnesium supplement to [...] from birthweights. I advised Brandie that the [employer] recommends delivery [...] sweetened beverages. 3. Close contact with our assistant health educator to optimize glycemic control on [...] glycemic control and surveillance. 9. After hours [facility] triage number provided to call with concerns. 10. Sent with labs today for repeat HgA1c and CMP. Family history of congenital heart defect 2020 Overview (03/26/2021): FOB with hypoplastic left heart. 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 Normal echocardiogram with [facility]. Resolved Problems Problem Noted Date Diagnosed Date Resolved Date Dysuria during in third trimester 06/13/2021 04/30/2022 Assessment & Plan (06/13/2021 5:00 PM CDT): Dysuria present intermittently with 1+ urine protein, patient is normotensive. Reports UTI that was treated in the 2nd trimester. [facility] recommendations: 1. Sent with lab requisition to have UA and culture collected at local lab today. 2. Alert OB if worsening symptoms before results. Supervision of normal first 03/26/2021 04/30/2022 Overview (03/26/2021): O Neg; AB: Neg, Immune, Rpr: NR, HIV: NR, Hbsag: NR H/h/p: 13.1 / 39.8 / 401 Elevated hemoglobin A1c 05/22/201603/04 Overview (08/25/2018): May 04, 2016 ([facility] in [place], [place]) hemoglobin A1c 6.2% (< 5.7), TSH 2.75 uIU/mL (0.465-4.68), free T4 0.96 ng/dL (0.78-2.19), ALT 24 U/L (9-52), cholesterol 160 mg/dL (200); triglyceride 117 mg/dL (< 150), HDL-cholesterol 45 mg/dL (> 35), LDL-cholesterol 81 mg/dL (< 130) May 22, 2018 - hemoglobin A1c 5.8% ([facility]) Jul, 2018 - elevated hemoglobin A1c at well child care teacher visit (results unavailable) Assessment & Plan [...] TSH. RTC in 2 weeks to see acoustical carpenter, 3 months to see . 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
[2025-04-18 13:13] LABS: Beta HCG Quantitative 83.86 mIU/ML
== END 2025-04-18 11:49 | disposition home or self-care (01) ==
LOC: CHSLAB 11:49
PROVIDERS: Visit Provider Nurse Practitioner Family
DX: O03.9 Complete or unspecified spontaneous abortion without complication (principal)
CPT/HCPCS: 36415; 84702; 85027

== ENCOUNTER 2025-05-12 10:41 | Outpatient (CLI) | payer BC, MEDICAID, SELFPAY ==
--- OUTSIDE RECORDS SUMMARY | 2025-05-12 10:46 | XMS_ITS | Clinical Summary ---
Author Organization [facility] Medical Office Building B Address [address] [place] [address] Care Team Providers Care Unix Analyst Name Role Phone Uriel Walker MD Primary Care Provider [phone] Alisson Chavis MANAGER INVESTMENT Unavailable [phone] Allergies No known active allergies Medications blood-glucose [...] 09/09/2023 Assessment & Plan (09/09/2023 11:06 AM COMPUTER SPECIALIST): Pain and tenderness on the radial side of bilateral wrists. Instructed to use thumb spica splint at night and continue ibuprofen as needed. Type 2 diabetes mellitus wit h hyperglycemia, without long-term current use of insulin 06/06/2023 Assessment & Plan (08/17/2024 11:12 AM CDT): Ozempic and metformin refilled. Assessment & Plan (09/09/2023 11:17 AM COMPUTER SPECIALIST): Continue checking glucose daily. Increase metformin to [...] 06/06/2023 Assessment & Plan (09/09/2023 10:45 AM COMPUTER SPECIALIST): Improving after physical therapy. Encouraged continuing home [...] today. Would like to have completed at [facility] in [place]. Aware that RN will call for auth & call [facility] to set up testing. Starting [...] today. Would like to have completed at [facility] in [place]. Aware that RN will call for auth & call [facility] to set up testing. Starting [...] Plan (06/26/2020 12:50 PM CDT): 06/26/20 A1C=6.0% VG=826 HDL=44 UQ=022 OKU=143 TC/HDL=3.8 Copy of results as well as [...] urine in office. Will check labs at [facility]. Assessment & Plan (02/17/2020 6:18 PM [...] 2 meals/day (school lunch & meal at [employer] nightly when working). Stressed dietary changes. Need [...] to deal with bullying. Paperwork completed. Will burr picker when she comes to have PPD read and to receive influenza vaccine. Encounter for medical examin [facility] to establish care 02/23/2019 02/16/2020 Assessment [...] healthier, we can set up appointment with taxation economist/hog ringer. 3. Have an active lifestyle, strive for [...] whatever food is nearby when hungry. Declines taxation economist. Has seen 2x [address] [facility]. Will make f/u appt in 1 month. Elevated hemoglobin A1c 05/22/201606/04 Overview (02/23/2019): May 04, 2016 ([facility] in [place], [place]) hemoglobin A1c 6.2% (< 5.7), TSH 2.75 uIU/mL (0.465-4.68), free T4 0.96 ng/dL (0.78-2.19), ALT 24 U/L (9-52), cholesterol 160 mg/dL (200); triglyceride 117 mg/dL (< 150), HDL-cholesterol 45 mg/dL (> 35), LDL-cholesterol 81 mg/dL (< 130) May 22, 2018 - hemoglobin A1c 5.8% ([facility]) Jul, 2018 - elevated hemoglobin A1c at well teacher early childhood development visit (results unavailable) Last Assessment & Plan: [...] Reviewed past labs w/Brandie and her mother Bradni. No medications at this time. Need lifestyle changes: diet & activity. Encounters Date Type Department Care Team Description 04/06/2025 Orders Only [facility] Health Information Management [address] [place] [phone] Scanning, Provider 03/30/2025 Orders Only [facility] Management [address] [place] [address] Scanning, Provider 03/23/2025 Orders Only [facility] Health Information Management [address] [place] [address] Scanning, Provider from Last 3 Months Immunizations Immunization Administration [...] on file Legal Sex Female 1:53 AM COMPUTER SPECIALIST Gender Identity Female 11/22/2020 12:52 PM COMPUTER SPECIALIST Sexual Orientation Straight 11/22/2020 12 :52 PM COMPUTER SPECIALIST Obstetrics History Last Filed Vital Signs Vital Sign Reading Time Taken Comments Blood Pressure 128/74 01/05/2025 9:33 AM COMPUTER SPECIALIST Pulse 90 01/05/2025 9:33 AM COMPUTER SPECIALIST Temperature 36.4 C (97.5 F) 12/22/2024 9:08 AM COMPUTER SPECIALIST Respiratory Rate 16 01/05/2025 9:33 AM COMPUTER SPECIALIST Oxygen Saturation 98% 01/05/2025 9:33 AM COMPUTER SPECIALIST Inhaled Oxygen Concentration - - Weight 127.5 kg (281 lb 1.6 oz) 024 12:00 PM COMPUTER SPECIALIST Height 165.1 cm (5' 5) 10/11/2024 12:0 0 PM COMPUTER SPECIALIST Body Mass Index 46.78 10/11/2024 12:00 PM COMPUTER SPECIALIST Plan of Treatment Health Maintenance Due Date [...] Dilated Eye Exam 10/22/2024 10/22/2023 Influenza Vaccine (#1) 2025 07/15/2019 Depression Screening 08/17/2025 08/17/2024, 05/07/2024, 09/09/2023, Additional [...] - LABS 03/23/2025 SCAN - RADIOLOGY/IMAGING 03/23/2025 HM DIABETES EYE EXAM Routine 10/22/2023 EGFR Routine 10/06/2023 12:19 PM COMPUTER SPECIALIST New onset type 2 diabetes mellitus (HCC) HEMOGLOBIN A1C Routine 10/06/2023 12:19 PM COMPUTER SPECIALIST New onset type 2 diabetes mellitus (HCC) LIPID PANEL Routine 10/06/2023 12:19 PM COMPUTER SPECIALIST Encounter for screening for lipoid disorders ALBUMIN CREATININE RATIO, URINE Routine 10/06/2023 12:19 PM COMPUTER SPECIALIST New onset type 2 diabetes mellitus (HCC) [...] Provider Scanning Edited Result - Final * DIABETES EYE EXAM (10/22/2023) Pathologist [facility] SCRIBED DIABETIC DILATED EYE EXAM Normal us Historical Provider MD HEALTH MAINTENANCE Final Result * eGFR (10/06/2023 12:19 PM COMPUTER SPECIALIST) eGFR 128 mL/min/1. 73 m2 CONNIE ALSTON [...] was last reviewed 2021. Testing performed by: [facility], [address] [place] [address]., [address] Blood 10/06/2023 12:1 9 PM COMPUTER SPECIALIST 10/06/2023 6:45 PM COMPUTER SPECIALIST Roseann Galvan MANAGER INVESTMENT LAB BLOOD ORDERABLES Final Result CONNIE ALSTON ([place]) [address] [facility] [place] [address] * Albumin Creatinine Ratio, Urine (10/06/2023 12:19 PM COMPUTER SPECIALIST) Albumin Ur <12.0 mg/L CONNIE AM H (LIN) Comment: Interpretive Data No reference range established. Current interpretive data was last revised 2019. Testing performed by: [address] [address] Creatinine Ur 214.2 mg/dL CONNIE ALSTON ([place]) Comment: Interpretive Data No reference range established. Current interpretive data was last revised 2019. Testing performed by: [address] [address] Albumin Creatinine Ratio, Ur <6 1 - 29 mg/g CONNIE ALSTON ([place]) Comment:Testing performed by : [address] [address] Urine 10/06/2023 12:1 9 PM COMPUTER SPECIALIST 10/06/2023 6:05 PM COMPUTER SPECIALIST Roseann Galvan MANAGER INVESTMENT LAB URINE ORDERABLES Final Result CONNIE ALSTON ([place]) [address] [place] [address] * (ABNORMAL) Hemoglobin A1c (10/06/2023 12:19 PM COMPUTER SPECIALIST) Hgb A1C 7.5(H) 4.0 - 5.6 % CONNIE ALSTON ([place]) Comment:Testing performed by : [address] [address] Estimated Average Glucose 169 mg/dL CONNIE ALSTON ([place]) Comment: The ADA recommends reporting an estimated Average Glucose (eAG) with all Hemoglobin A1c results using the equation derived from a study of 507 normal and diabetic adults. Minority populations were underrepresented and children were not included. (Diabetes Care 31:9632-4065, 2008). The eAG is not equivalent to a fasting glucose. Testing performed by: [facility], [address] [place] [address]., [address] Blood 10/06/2023 12:1 9 PM COMPUTER SPECIALIST 10/06/2023 6:05 PM COMPUTER SPECIALIST Roseann Galvan MANAGER INVESTMENT LAB BLOOD ORDERABLES Final Result Performing Organization Address [facility] Co de Phone Number CONNIE ALSTON ([place]) 1 [facility] [place] [address] * (ABNORMAL) Lipid panel (10/06/2023 12:19 PM COMPUTER SPECIALIST) Cholesterol 169 30 - 199 mg/dL CONNIE [...] last revised on 2018. Testing performed by: [facility], [address] [place] [address]., [address] Triglycerides 162(H) <=149 mg/dL [facility] ([place]) [...] last revised on 2018. Testing performed by: [facility], [address] [place] [address]., [address] HDL 31(L) >=40 mg/dL [facility] ([place]) [...] last revised on 2018. Testing performed by: [facility], [address] [place] [address]., [address] LDL, calculated 106 <=129 mg/dL [facility] [...] last revised on 2018. Testing performed by: [address] [address] Non-HDL Cholesterol 138 mg/dL CONNIE ALSTON ([place]) [...] last revised on 2018. Testing performed by: [facility], [address] [place] [address]., [address] Chol/HDL ratio 5 TURNER ALSTON ([place]) Comment:Testing performed by : [facility], [address] [place] [address]., [address] Blood 10/06/2023 12:1 9 PM COMPUTER SPECIALIST 10/06/2023 6:05 PM COMPUTER SPECIALIST Roseann Galvan MANAGER INVESTMENT LAB BLOOD ORDERABLES Final Result CONNIE ALSTON ([place]) [address] [facility] [place] [address] from Last 3 Months or Most Recently Relevant to Health Maintenance Insurance [facility] [place] [address] [address] [email or web address] Care Teams Unix Analyst Relationship Specialty Start Date End Date [place] [address] PCP - General Family Medicine 02/23/19 [place] [phone] [address] Nurse Practitioner Or Manager 12/01/24
--- OUTSIDE RECORDS SUMMARY | 2025-05-12 10:46 | XMS_ITS | Referral Summary ---
Author Organization [facility] Medical Office Building B Address [address] [place] [address] Care Team Providers Care Process Expert Name Role Phone Uriel Walker MD Primary Care Provider [phone] Alisson Chavis REPAIRER EVAPORATOR Unavailable [phone] Encounters Date Type Department Care Team Description 04/06/2025 Orders Only [facility] Health Information Management [address] [place] [address] Scanning, Provider 03/30/2025 Orders Only [facility] Health Information Management [address] [place] [address] Scanning, Provider 03/23/2025 Orders Only [facility] Health Information Management [address] [place] [address] Scanning, Provider from Last 3 Months Allergies No known [...] a day with meals 60 tablet 11 10/15/08/17/20 25 Active Additional Information Patient not taking.Reported [...] continue with PT and monitoring. Tendinitis, de Nhungvaeliane's 09/09/2023 Assessment & Plan (09/09/2023 11:06 AM BUFFING MACHINE OPERATOR SEMIAUTOMATIC): Pain and tenderness on the radial side of bilateral wrists. Instructed to use thumb spica splint at night and continue ibuprofen as needed. Type 2 diabetes mellitus wit h hyperglycemia, without long-term current use of insulin 06/06/2023 Assessment & Plan (08/17/2024 11:12 AM CDT): Ozempic and metformin refilled. Assessment & Plan (09/09/2023 11:17 AM BUFFING MACHINE OPERATOR SEMIAUTOMATIC): Continue checking glucose daily. Increase metformin to [...] 06/06/2023 Assessment & Plan (09/09/2023 10:45 AM BUFFING MACHINE OPERATOR SEMIAUTOMATIC): Improving after physical therapy. Encouraged continuing home [...] today. Would like to have completed at [facility]. Aware that RN will call for auth & call [facility] to set up testing. Starting new job [...] today. Would like to have completed at [facility]. Aware that RN will call for auth & call [facility] to set up testing. Starting new job [...] Plan (06/26/2020 12:50 PM CDT): 06/26/20 A1C=6.0% CO=102 HDL=44 BW=659 EDT=269 TC/HDL=3.8 Copy of results as well as [...] urine in office. Will check labs at [facility]. Assessment & Plan (02/17/2020 [...] 2 meals/day (school lunch & meal at [employer] nightly when working). Stressed dietary changes. Need [...] to deal with bullying. Paperwork completed. Will bean picker machine operator when she comes to have PPD read [...] healthier, we can set up appointment with shingle shearing machine operator/machine marker. 3. Have an active lifestyle, strive for [...] whatever food is nearby when hungry. Declines shingle shearing machine operator. Has seen 2x at [facility]. Will make f/u appt in 1 month. Elevated hemoglobin A1c 05/22/201606/04 Overview (02/23/2019): May 04, 2016 ([facility] in [place], [place]) hemoglobin A1c 6.2% (< 5.7), TSH 2.75 uIU/mL (0.465-4.68), free T4 0.96 ng/dL (0.78-2.19), ALT 24 U/L (9-52), cholesterol 160 mg/dL (200); triglyceride 117 mg/dL (< 150), HDL-cholesterol 45 mg/dL (> 35), LDL-cholesterol 81 mg/dL (< 130) May 22, 2018 - hemoglobin A1c 5.8% ([facility]) Jul, 2018 - elevated hemoglobin A1c at well child welfare specialist visit (results unavailable) Last Assessment & [...] on file Legal Sex Female 1:53 AM BUFFING MACHINE OPERATOR SEMIAUTOMATIC Gender Identity Female 11/22/2020 12:52 PM BUFFING MACHINE OPERATOR SEMIAUTOMATIC Sexual Orientation Straight 11/22/2020 12 :52 PM BUFFING MACHINE OPERATOR SEMIAUTOMATIC Last Filed Vital Signs Vital Sign Reading Time Taken Comments Blood Pressure 128/74 01/05/2025 9:33 AM BUFFING MACHINE OPERATOR SEMIAUTOMATIC Pulse 90 01/05/2025 9:33 AM BUFFING MACHINE OPERATOR SEMIAUTOMATIC Temperature 36.4 C (97.5 F) 12/22/2024 9:08 AM BUFFING MACHINE OPERATOR SEMIAUTOMATIC Respiratory Rate 16 01/05/2025 9:33 AM BUFFING MACHINE OPERATOR SEMIAUTOMATIC Oxygen Saturation 98% 01/05/2025 9:33 AM BUFFING MACHINE OPERATOR SEMIAUTOMATIC Inhaled Oxygen Concentration - - Weight 127.5 kg (281 lb 1.6 oz) 024 12:00 PM BUFFING MACHINE OPERATOR SEMIAUTOMATIC Height 165.1 cm (5' 5) 10/11/2024 12:0 0 PM BUFFING MACHINE OPERATOR SEMIAUTOMATIC Body Mass Index 46.78 10/11/2024 12:00 PM BUFFING MACHINE OPERATOR SEMIAUTOMATIC Plan of Treatment Not on file Procedures Procedure Name Priority Date/Time Associated Diagnosis Comments SCAN - RADIOLOGY/IMAGING 04/06/2025 SCAN - LABS 03/30/2025 SCAN - RADIOLOGY/IMAGING 03/30/2025 SCAN - LABS 03/23/2025 SCAN - RADIOLOGY/IMAGING 03/23/2025 DIABETES EYE EXAM Routine 10/22/2023 EGFR Routine 10/06/2023 12:19 PM BUFFING MACHINE OPERATOR SEMIAUTOMATIC New onset type 2 diabetes mellitus (HCC) HEMOGLOBIN A1C Routine 10/06/2023 12:19 PM BUFFING MACHINE OPERATOR SEMIAUTOMATIC New onset type 2 diabetes mellitus (HCC) LIPID PANEL Routine 10/06/2023 12:19 PM BUFFING MACHINE OPERATOR SEMIAUTOMATIC Encounter for screening for lipoid disorders ALBUMIN CREATININE RATIO, URINE Routine 10/06/2023 12:19 PM BUFFING MACHINE OPERATOR SEMIAUTOMATIC New onset type 2 diabetes mellitus (HCC) [...] Final * DIABETES EYE EXAM (10/22/2023) Pathologist [facility] SCRIBED DIABETIC DILATED EYE EXAM Normal us Historical Provider MD HEALTH MAINTENANCE Final Result * eGFR (10/06/2023 12:19 PM BUFFING MACHINE OPERATOR SEMIAUTOMATIC) Pathologist [facility] eGFR 128 mL/min/1. 73 m2 CONNIE ALSTON [...] was last reviewed 2021. Testing performed by: [facility], [address] [place] [address]., [id number] Blood 10/06/2023 12:1 9 PM BUFFING MACHINE OPERATOR SEMIAUTOMATIC 10/06/2023 6:45 PM BUFFING MACHINE OPERATOR SEMIAUTOMATIC Roseann Galvan REPAIRER EVAPORATOR LAB BLOOD ORDERABLES Final Result Performing Organization Address City/[facility]/ZIP Co de Phone Number CONNIE ALSTON ([place]) 1 [facility] [place] [address] * Albumin Creatinine Ratio, Urine (10/06/2023 12:19 PM BUFFING MACHINE OPERATOR SEMIAUTOMATIC) Albumin Ur <12.0 mg/L CONNIE Baum ([place]) Comment: Interpretive Data No reference range established. Current interpretive data was last revised 2019. Testing performed by: [facility], [address] [place] [address]., [id number] Creatinine Ur 214.2 mg/dL CONNIE ALSTON ([place]) Comment: Interpretive Data No reference range established. Current interpretive data was last revised 2019. Testing performed by: [facility], [address] [place] [address]., [address] Albumin Creatinine Ratio, Ur <6 1 - 29 mg/g CONNIE ALSTON ([place]) Comment:Testing performed by : [address] [address] Urine 10/06/2023 12:1 9 PM BUFFING MACHINE OPERATOR SEMIAUTOMATIC 10/06/2023 6:05 PM BUFFING MACHINE OPERATOR SEMIAUTOMATIC Roseann Galvan NP LAB URINE ORDERABLES Final Result Performing Organization Address City/[facility]/ZIP Co de Phone Number CONNIE ALSTON ([place]) 1 [facility] [place] [address] * (ABNORMAL) Hemoglobin A1c (10/06/2023 12:19 PM BUFFING MACHINE OPERATOR SEMIAUTOMATIC) Hgb A1C 7.5(H) 4.0 - 5.6 % CONNIE ALSTON ([place]) Comment:Testing performed by : [facility], [address] [place] [address]., [address] Estimated Average Glucose 169 mg/dL CONNIE ALSTON ([place]) Comment: The ADA recommends reporting an estimated Average Glucose (eAG) with all Hemoglobin A1c results using the equation derived from a study of 507 normal and diabetic adults. Minority populations were underrepresented and children were not included. (Diabetes Care 31:5094-6898, 2008). The eAG is not equivalent to a fasting glucose. Testing performed by: [facility], [address] [place] [address]., [address] Blood 10/06/2023 12:1 9 PM BUFFING MACHINE OPERATOR SEMIAUTOMATIC 10/06/2023 6:05 PM BUFFING MACHINE OPERATOR SEMIAUTOMATIC Roseann Galvan NP LAB BLOOD ORDERABLES Final Result CONNIE ALSTON ([place]) 1 [facility] Department [place] [address] * (ABNORMAL) Lipid panel (10/06/2023 12:19 PM BUFFING MACHINE OPERATOR SEMIAUTOMATIC) Cholesterol 169 30 - 199 mg/dL CONNIE [...] last revised on 2018. Testing performed by: [address] [address] Triglycerides 162(H) <=149 mg/dL CONNIE ALSTON ([place]) [...] last revised on 2018. Testing performed by: [facility], [address] [place] [address]., [address] HDL 31(L) >=40 mg/dL [facility] ([place]) Comment: Interpretive Data Ages < [...] last revised on 2018. Testing performed by: [facility], [address] [place] [address]., [address] LDL, calculated 106 <=129 mg/dL CON[facility]IE [facility] [...] last revised on 2018. Testing performed by: [facility], [address] [place] [address]., [address] Non-HDL Cholesterol 138 mg/dL [facility] ([place]) Comment: Interpretive Data Ages < [...] last revised on 2018. Testing performed by: [facility], [address] [place] [address]., [address] Chol/HDL ratio 5 TURNER ALSTON (LIN) Comment:Testing performed by : [facility], [address] [place] [address]., [address] Blood 10/06/2023 12:1 9 PM BUFFING MACHINE OPERATOR SEMIAUTOMATIC 10/06/2023 6:05 PM BUFFING MACHINE OPERATOR SEMIAUTOMATIC Roseann Galvan REPAIRER EVAPORATOR LAB BLOOD ORDERABLES Final Result CONNIE ALSTON ([place]) 1 [facility] Department [place] [address] from Last 3 Months or Most Recently Relevant to Health Maintenance Insurance [facility] Member Subscriber Plan / Payer (Ef fective 2018-Present) Name:Brandie Torres Relation to Subscriber:Child Name:BRANDI WILDER Date of :1982 (Home) Address: [address] [place] [address] Payer ID:[id number] (NAIC) Type:[facility] Address: [address] [employer] [place] [facility] Care Teams Process Expert Relationship Specialty Start Date End Date [place] [address] PCP - General Family Medicine 02/23/19 [place] [address] [place] [address] [address] Nurse Practitioner Analysis Reporting Developer 12/01/24
--- OUTSIDE RECORDS SUMMARY | 2025-05-12 10:46 | XMS_ITS | Clinical Summary ---
Author Organization [facility] Address [address] [place] [phone] Phone Care Team Providers Care Human Performance Technologist Name Role Phone Unavailable Primary Care Provider [...] 05/26/2003, Additional history exists INFLUENZA VACCINE (#1) 2025 07/15/2019 HEPATITIS B VACCINES Completed 08/30/2002, 2001, 2001 HPV VACCINES Completed 04/23/2016, 05/07/2013 Insurance [facility] BLUE ACCESS CHOICE
--- OUTSIDE RECORDS SUMMARY | 2025-05-12 10:47 | XMS_ITS | Clinical Summary ---
Author Organization [facility] [employer] Address [address] [place] [address] Care Team Providers Care Grapple Crew Leader Name Role Phone Christine Peterson MD Primary Care Provider [phone] Source Comments [facility] [employer],non-owned Affiliates and Associated Physician Practices is amultiple site organization consisting of ambulatory clinics and hospital sitesin [place], [place], [place] and [place]. This disclosure is being madepursuant to the Care Everywhere program and may not contain all information available regarding this patient. Last updated 18.[facility] [employer] Allergies No known active allergies Medications * Be aware that medications may not be up to date on this document. Alwaysverify current medications with the patient. Lancets (MICROLET) [facility] Use 5-9 Each once daily Use to [...] Glucagon (BAQSIMI ONE PACK) 3 MG/DOSE POWD [place] 3 mg into the nose as needed [...] in the breast milk. 3. 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 [facility] recommendations: 1. Start magnesium supplement [...] from birthweights. I advised Brandie that the [employer] recommends delivery [...] sweetened beverages. 3. Close contact with our in service educator to optimize glycemic control on at [...] of hypoplastic left heart. Normal echocardiogram with [facility]. Resolved Problems Problem Noted Date Diagnosed [...] A1c 05/22/201603/04 Overview (08/25/2018): May 04, 2016 ([facility] in [place], [place]) hemoglobin A1c 6.2% (< 5.7), TSH 2.75 uIU/mL (0.465-4.68), free T4 0.96 ng/dL (0.78-2.19), ALT 24 U/L (9-52), cholesterol 160 mg/dL (200); triglyceride 117 mg/dL (< 150), HDL-cholesterol 45 mg/dL (> 35), LDL-cholesterol 81 mg/dL (< 130) May 22, 2018 - hemoglobin A1c 5.8% ([facility]) Jul, 2018 - elevated hemoglobin A1c at well child care nurse visit (results unavailable) Assessment & Plan (08/25/2018 [...] TSH. RTC in 2 weeks to see polishing pad mounter, 3 months to see . Snoring 05/17/2011 [...] on file Legal Sex Female 5:41 AM MOBILE QA TESTER Gender Identity Not on file Sexual Orientation [...] Health Maintenance Due Date Last Done Comments HIV SCREENING 2016 HPV VACCINE (1 - 3-dose series) 2016 CHLAMYDIA/GONORRHEA SCREENING 2017 MENINGOCOCCAL (Group B) VACC INE SHARED DECISION-MAKING (1 of 2 - Standard) 2017 HEPATITIS C SCREENING 11/09/2019 DTAP/TDAP/TD VACCINES (1 - Tdap) 2020 HEPATITIS B VACCINE (1 of 3 - 19+ 3-dose series) 2020 PAP SMEAR 2022 COVID-19 VACCINE (1 - 2023-2 5 season) 2024 DEPRESSION SCREENING 11/03/2024 INFLUENZA VACCINE (#1) 2025 07/15/2019 ZOSTER VACCINE (1 of 2) 2051 HIB VACCINE Aged Out No longer eligi ble based on patient's age to complete this topic MENINGOCOCCAL GROUPS A/C/Y/W VACCINE Aged Out No longer eligible b ased on patient's age to complete this topic PNEUMOCOCCAL VACCINE Aged Out No long er eligible based on patient's age to complete this topic [place] [address] MEDICAID - [place] [facility] MEDICAID - OUT OF STATE Care Teams Grapple Crew Leader Relationship Specialty Start Date End Date Christine Peterson MD [address] [facility] [address] [place] [phone] PCP - General Pediatrics 07/29/18
[2025-05-12 11:36] LABS: Beta HCG Quantitative < 2.39 mIU/ML
== END 2025-05-12 10:42 | disposition home or self-care (01) ==
LOC: CHSLAB 10:43
PROVIDERS: PCP Family Medicine; Visit Provider Obstetrics & Gynecology
DX: O03.9 Complete or unspecified spontaneous abortion without complication (principal)
CPT/HCPCS: 36415; 84702

== ENCOUNTER 2025-06-01 03:25 | Emergency (ER) | payer BC, MEDICAID, SELFPAY ==
--- NOTE | ~2025-06-01 | CT_ITS ---
CLINICAL INDICATION: Right-sided abdominal pain COMPARISON: 01/04/2024. TECHNIQUE: Multiple contiguous axial images of the abdomen and pelvis were performed following the ad ministration of with 100 mL Omnipaque-350 intravenous contrast The dose-length product (DLP) was 1653.99 mGy-cm. Automated exposure control and iterative reconstruction technique were employed. FINDINGS/OBSERVATIONS: Visualized lower thorax: The bilateral lung bases are clear. The heart is of normal size, without pericardial effusion. Liver: The liver demonstrates homogeneously decreased enhancement and is enlarged measuring 20 cm in longitu dinal dimension. Gallbladder and biliary system: The gallbladder is compressed, limiting its evaluation. Pancreas: The pancreas enhances homogeneously without ductal dilatation. Spleen: The spleen enhances homogeneously and is not enlarged measuring 8 cm in longitudinal dimension. Kidneys: The bilateral kidneys enhance symmetrically without hydronephrosis or renal calculi. Adrenal glands: Unremarkable. Gastrointestinal tract: Fecal stasis within the rectum. Appendix: The air-filled appendix is of normal caliber (axial series, images 119 - 136). Vasculature: Unremarkable. Lymph nodes: No pathologically enlarged or morphologically suspicious lymph nodes within the retroperitoneum or at the root of the mesentery. Pelvic structures: The bladder is minimally distended, and otherwise unremarkable. The uterus is anteverted and anteflexed Body wall and musculoskeletal: No significant degenerative disease within the lower thoracic or lumbosacral spine. IMPRESSION: Interval enlargement of the liver, when compared with 2023 examination. Fatty infiltration is redemonstrated. Remainder of examination is unremarkable. Reviewed, dictated and finalized at location A.
[2025-06-01 03:30] VITALS: BP 144/89; PULSE 86; RESP 18; TEMP 36.8; O2SAT 97
--- OUTSIDE RECORDS SUMMARY | 2025-06-01 03:31 | XMS_ITS | Clinical Summary ---
Author Organization [facility] Address Formerly [facility], [facility] [place] [address] Care Team Providers Care Field Support Specialist Name Role Phone Uriel Walker MD Primary Care Provider [phone] Allergies No known active allergies Medications Glucagon (BAQSIMI ONE PACK) 3 MG/DOSE Powder 3 mg by Nasal route. 04/19/2022 Active BAQSIMI ONE PACK 3 MG/DOSE Powder 04/19/2022 Ac tive insulin detemir 100 UNIT/ML flextouch PEN Inject 14 units every night. 04/18/2022 Active sertraline 50 MG tablet Take 50 mg by mouth daily. Active Active Problems Problem Noted Date Diagnosed Date Lumbar radiculopathy 01/17/2025 Family History Medical History Relation Comments Asthma [...] often do you attend chur ch or catholic services? Never 04/26/2022 Do you belong to any clubs o r organizations such as shinto groups, unions, fraternal or athletic groups, or [...] and heating? Not hard at all 04/26/2022 [facility] Occupat ional Health - Occupational Stress [...] place to sleep or slept in a chcf (including now)? No 04/26/2022 Comments No Sex [...] 3:00 PM CDT Height 164.5 cm (5' 4.75) 06/12/2021 3:00 PM CD T Body Mass Index 47.79 06/12/2021 3:00 PM CDT Plan of Treatment Health Maintenance Due Date Last Done Comments Cervical Cancer Screening Pap Smear (Age 21 to 29) Every 3 Years 2001 Cervical Cancer Screening 2001 Annual Physical 2004 Hepatitis C 2019 Meningococcal B Vaccine (2 of 2 - Bexsero SCDM 2-dose series) 01/13/2020 07/15/2019 COVID-19 Vaccine (2023-25 season) 2024 DTaP, Tdap and Td Vaccines (9 - Td or Tdap) 05/25/2032 05/25/2022, 08/03/2021, 05/07/2013, Additional history exists Hepatitis B Vaccines Completed 08/30/2002, 2001, 2001 Pneumococcal Vaccine: Pediatrics (0 to 5 Years) and At-Risk Patients (6 to 49 Years) Aged Out 11/15/2002, 05/28/2002, 03/16/2002, Additional history exists No longer eligible based on patient's age to complete this topic HPV Vaccines Completed 04/23/2016, 05/07/2013 Meningococcal Vaccine Completed 06/10/2018, 013 RSV Immunizations Under 20 Months Aged Out No longer eligible based on patient's age to complete this topic Insurance [facility] Care Teams Field Support Specialist Relationship Specialty Start Date End Date Uriel Walker MD [address] [place] [address] PCP - General INTERNAL MEDICINE 04/26/22
--- OUTSIDE RECORDS SUMMARY | 2025-06-01 03:31 | XMS_ITS | Clinical Summary ---
Author Organization [facility] Address [address] [place] [phone] Phone Care Team Providers Care Refining Engineer Name Role Phone Unavailable Primary Care Provider [...] 2001 HPV VACCINES Completed 04/23/2016, 05/07/2013 Insurance [facility] BLUE ACCESS CHOICE
--- OUTSIDE RECORDS SUMMARY | 2025-06-01 03:32 | XMS_ITS | Referral Summary ---
Author Organization [facility] Address [address] [place] [address] Care Team Providers Care Wool Shearer Name Role Phone Uriel Walker MD Primary Care Provider [phone] Alisson Chavis CASE FINISHING MACHINE ADJUSTER Unavailable [phone] Encounters Date Type Department Care Team Description 05/12/2025 Orders Only [facility] [address] [place] [phone] Scanning, Provider 04/06/2025 Orders Only [facility] Information [facility] [address] [place] [phone] Scanning, Provider 03/30/2025 Orders Only [facility] Information Management [address] [place] [phone] Scanning, Provider 03/23/2025 Orders Only [facility] Information Management [address] [place] [phone] Scanning, Provider from Last 3 Months Allergies [...] continue with PT and monitoring. Tendinitis, de Quervaeliane's 09/09/2023 Assessment & Plan (09/09/2023 11:06 AM CONVEYOR SYSTEM OPERATOR): Pain and tenderness on the radial side of bilateral wrists. Instructed to use thumb spica splint at night and continue ibuprofen as needed. Type 2 diabetes mellitus wit h hyperglycemia, without long-term current use of insulin 06/06/2023 Assessment & Plan (08/17/2024 11:12 AM CDT): Ozempic and metformin refilled. Assessment & Plan (09/09/2023 11:17 AM CONVEYOR SYSTEM OPERATOR): Continue checking glucose daily. Increase metformin [...] 06/06/2023 Assessment & Plan (09/09/2023 10:45 AM CONVEYOR SYSTEM OPERATOR): Improving after physical therapy. Encouraged continuing [...] today. Would like to have completed at [facility]. Aware that RN will call for auth & call [facility] to set up testing. Starting new [...] today. Would like to have completed at [facility]. Aware that RN will call for auth & call [facility] to set up testing. Starting new [...] Plan (06/26/2020 12:50 PM CDT): 06/26/20 A1C=6.0% ND=773 HDL=44 JN=441 UFK=556 TC/HDL=3.8 Copy of results as well as [...] in office. Will check labs at [facility] in [place]. Assessment & Plan (02/17/2020 6:18 PM CDT): [...] 2 meals/day (school lunch & meal at [employer] nightly when working). Stressed dietary changes. Need [...] to deal with bullying. Paperwork completed. 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 3. Have an active lifestyle, strive for [...] whatever food is nearby when hungry. Declines airplane technician. Has seen 2x at [facility]. Will make f/u appt in 1 month. Elevated hemoglobin A1c 05/22/201606/04 Overview (02/23/2019): May 04, 2016 ([facility] in [place], [place]) hemoglobin A1c 6.2% (< 5.7), TSH 2.75 uIU/mL (0.465-4.68), free T4 0.96 ng/dL (0.78-2.19), ALT 24 U/L (9-52), cholesterol 160 mg/dL (200); triglyceride 117 mg/dL (< 150), HDL-cholesterol 45 mg/dL (> 35), LDL-cholesterol 81 mg/dL (< 130) May 22, 2018 - hemoglobin A1c 5.8% ([facility]) Jul, 2018 - elevated hemoglobin A1c at well child caregiver visit (results unavailable) Last Assessment & Plan: [...] on file Legal Sex Female 1:53 AM CONVEYOR SYSTEM OPERATOR Gender Identity Female 11/22/2020 12:52 PM CONVEYOR SYSTEM OPERATOR Sexual Orientation Straight 11/22/2020 12 :52 PM CONVEYOR SYSTEM OPERATOR Last Filed Vital Signs Vital Sign Reading Time Taken Comments Blood Pressure 128/74 01/05/2025 9:33 AM CONVEYOR SYSTEM OPERATOR Pulse 90 01/05/2025 9:33 AM CONVEYOR SYSTEM OPERATOR Temperature 36.4 C (97.5 F) 12/22/2024 9:08 AM CONVEYOR SYSTEM OPERATOR Respiratory Rate 16 01/05/2025 9:33 AM CONVEYOR SYSTEM OPERATOR Oxygen Saturation 98% 01/05/2025 9:33 AM CONVEYOR SYSTEM OPERATOR Inhaled Oxygen Concentration - - Weight 127.5 kg (281 lb 1.6 oz) 024 12:00 PM CONVEYOR SYSTEM OPERATOR Height 165.1 cm (5' 5) 10/11/2024 12:0 0 PM CONVEYOR SYSTEM OPERATOR Body Mass Index 46.78 10/11/2024 12:00 PM CONVEYOR SYSTEM OPERATOR Plan of Treatment Not on file Procedures Procedure Name Priority Date/Time Associated Diagnosis Comments SCAN - LABS 05/12/2025 SCAN - RADIOLOGY/IMAGING 04/06/2025 SCAN - LABS 03/30/2025 SCAN - RADIOLOGY/IMAGING 03/30/2025 SCAN - LABS 03/23/2025 SCAN - RADIOLOGY/IMAGING 03/23/2025 DIABETES EYE EXAM Routine 10/22/2023 EGFR Routine 10/06/2023 12:19 PM CONVEYOR SYSTEM OPERATOR New onset type 2 diabetes mellitus (HCC) HEMOGLOBIN A1C Routine 10/06/2023 12:19 PM CONVEYOR SYSTEM OPERATOR New onset type 2 diabetes mellitus (HCC) LIPID PANEL Routine 10/06/2023 12:19 PM CONVEYOR SYSTEM OPERATOR Encounter for screening for lipoid disorders ALBUMIN CREATININE RATIO, URINE Routine 10/06/2023 12:19 PM CONVEYOR SYSTEM OPERATOR New onset type 2 diabetes mellitus (HCC) from Last 3 Months or Most Recently Relevant to Health Maintenance Results * SCAN - LABS (05/12/2025) us Provider Scanning Final Result * SCAN - RADIOLOGY/IMAGING (04/06/2025) Anatomical Region [...] - Final * DIABETES EYE EXAM (10/22/2023) SCRIBED DIABETIC DILATED EYE EXAM Normal us Historical Provider HEALTH MAINTENANCE Final Result * eGFR (10/06/2023 12:19 PM CONVEYOR SYSTEM OPERATOR) eGFR 128 mL/min/1. 73 m2 CONNIE [...] was last reviewed 2021. Testing performed by: [address] [id number] Blood 10/06/2023 12:1 9 PM CONVEYOR SYSTEM OPERATOR 10/06/2023 6:45 PM CONVEYOR SYSTEM OPERATOR Roseann Galvan CASE FINISHING MACHINE ADJUSTER LAB BLOOD ORDERABLES Final Result CONNIE ALSTON ([place]) 1 [facility] Department [place] [address] * Albumin Creatinine Ratio, Urine (10/06/2023 12:19 PM CONVEYOR SYSTEM OPERATOR) Albumin Ur <12.0 mg/L CERNER AM H (LIN) Comment: Interpretive Data No reference range established. Current interpretive data was last revised 2019. Testing performed by: [address] [address] Creatinine Ur 214.2 mg/dL CONNIE ALSTON (LIN) Comment: Interpretive Data No reference range established. Current interpretive data was last revised 2019. Testing performed by: [address] [address] Albumin Creatinine Ratio, Ur <6 1 - 29 mg/g CONNIE ALSTON (LIN) Comment:Testing performed by : [address] [id number] Urine 10/06/2023 12:1 9 PM CONVEYOR SYSTEM OPERATOR 10/06/2023 6:05 PM CONVEYOR SYSTEM OPERATOR Roseann Galvan CASE FINISHING MACHINE ADJUSTER LAB URINE ORDERABLES Final Result CONNIE ALSTON (LIN) [address] [place] [address] * (ABNORMAL) Hemoglobin A1c (10/06/2023 12:19 PM CONVEYOR SYSTEM OPERATOR) Hgb A1C 7.5(H) 4.0 - 5.6 % CONNIE ALSTON (LIN) Comment:Testing performed by : [facility], [address] [place] [address]., [id number] Estimated Average Glucose 169 mg/dL CONNIE ALSTON ([place]) Comment: The ADA recommends reporting an estimated Average Glucose (eAG) with all Hemoglobin A1c results using the equation derived from a study of 507 normal and diabetic adults. Minority populations were underrepresented and children were not included. (Diabetes Care 31:0719-9521, 2008). The eAG is not equivalent to a fasting glucose. Testing performed by: [facility], [address] [place] [address]., [id number] Blood 10/06/2023 12:1 9 PM CONVEYOR SYSTEM OPERATOR 10/06/2023 6:05 PM CONVEYOR SYSTEM OPERATOR Roseann Galvan NP LAB BLOOD ORDERABLES Final Result Performing Organization Address [facility] Co de Phone Number CONNIE ALSTON (LIN) 1 [facility] [place] [address] * (ABNORMAL) Lipid panel (10/06/2023 12:19 PM CONVEYOR SYSTEM OPERATOR) Cholesterol 169 30 - 199 mg/dL [...] last revised on 2018. Testing performed by: [facility], [address] [place] [address]., [address] Triglycerides 162(H) <=149 mg/dL [facility] ([place]) [...] last revised on 2018. Testing performed by: [facility], [address] [place] [address]., [address] HDL 31(L) >=40 mg/dL [facility] ([place]) [...] last revised on 2018. Testing performed by: [facility], [address] [place] [address]., [address] LDL, calculated 106 <=129 mg/dL [facility] [...] last revised on 2018. Testing performed by: [facility], [address] [place] [address]., [address] Non-HDL Cholesterol 138 mg/dL CONNIE ALSTON (LIN) [...] last revised on 2018. Testing performed by: [facility], [address] [place] [address]., [address] Chol/HDL ratio 5 TURNER ALSTON (LIN) Comment:Testing performed by : [facility], [address] [place] [address]., [address] Blood 10/06/2023 12:1 9 PM CONVEYOR SYSTEM OPERATOR 10/06/2023 6:05 PM CONVEYOR SYSTEM OPERATOR Roseann Galvan CASE FINISHING MACHINE ADJUSTER LAB BLOOD ORDERABLES Final Result CONNIE ALSTON (LIN) 1 [facility] Department [place] [address] from Last 3 Months or Most Recently Relevant to Health Maintenance Insurance [facility] [employer] BLUE [employer] [place] [employer] [place] Care Teams Wool Shearer Relationship Specialty Start Date End Date [place] [address] PCP - General Family Medicine 02/23/19 [place] [address] [place] [address] Nurse Practitioner Setup Operator 12/01/24
--- OUTSIDE RECORDS SUMMARY | 2025-06-01 03:32 | XMS_ITS | Clinical Summary ---
Author Organization [facility] Address [address] [place] [address] Care Team Providers Care Quarter Seamer Name Role Phone Christine Peterson MD Primary Care Provider [phone] Source Comments [facility],non-owned Affiliates and Associated Physician Practices is amultiple site organization consisting of ambulatory clinics and hospital sitesin [place], [place], [place] and [place]. This disclosure is being madepursuant to the Care Everywhere program and may not contain all information available regarding this patient. Last updated 18.[facility] Allergies No known active allergies Medications * Be aware that medications may not be up to date on this document. Alwaysverify current medications with the patient. Lancets (MICROLET) [facility] Use 5-9 Each once daily Use to [...] Glucagon (BAQSIMI ONE PACK) 3 MG/DOSE POWD [place] 3 mg into the nose as needed [...] and anxiety without thoughts of self harm. [facility] recommendations: 1. I reviewed the risks [...] in the breast milk. 3. 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 [facility] recommendations: 1. Start magnesium supplement to [...] today. -Normal echocardiogram. Counseling: I counseled Brandie Torers regarding the adverse outcomes associated with inadequately [...] from birthweights. I advised Brandie that the [place] [employer] recommends delivery [...] sweetened beverages. 3. Close contact with our ems educator to optimize glycemic control on at [...] glycemic control and surveillance. 9. After hours [facility] triage number provided to call with concerns. 10. Sent with labs today for repeat HgA1c and CMP. Family history of congenital heart defect 2020 Overview (03/26/2021): FOB with hypoplastic left heart. 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 Normal echocardiogram with [facility]. Resolved Problems Problem Noted Date Diagnosed Date Resolved Date Dysuria during in third trimester 06/13/2021 04/30/2022 Assessment & Plan (06/13/2021 5:00 PM CDT): Dysuria present intermittently with 1+ urine protein, patient is normotensive. Reports UTI that was treated in the 2nd trimester. [facility] recommendations: 1. Sent with lab requisition [...] 04, 2016 ([facility] in [place], [place]) hemoglobin A1c 6.2% (< 5.7), TSH 2.75 uIU/mL (0.465-4.68), free T4 0.96 ng/dL (0.78-2.19), ALT 24 U/L (9-52), cholesterol 160 mg/dL (200); triglyceride 117 mg/dL (< 150), HDL-cholesterol 45 mg/dL (> 35), LDL-cholesterol 81 mg/dL (< 130) May 22, 2018 - hemoglobin A1c 5.8% ([facility]) Jul, 2018 - elevated hemoglobin A1c at well child & adolescent psychiatrist visit (results unavailable) Assessment & Plan (08/25/2018 [...] TSH. RTC in 2 weeks to see machine shop repair technician, 3 months to see . Snoring 05/17/2011 [...] on file Legal Sex Female 5:41 AM HARNESS PREPARER Gender Identity Not on file Sexual Orientation [...] to complete this topic [place] [address] MEDICA[place] - [place] [facility] MEDICAID - OUT OF STATE Care Teams Quarter Seamer Relationship Specialty Start Date End Date Christine Peterson MD 2 [facility] [address] [place] [phone] PCP - General Pediatrics 07/29/18
--- OUTSIDE RECORDS SUMMARY | 2025-06-01 03:32 | XMS_ITS | Clinical Summary ---
[facility] Address [address] [place] [address] Care Team Providers Care Photonics Engineering Technologist Name Role Phone Uriel Walker MD Primary Care Provider [phone] Alisson Chavis VITICULTURE TEACHER Unavailable [phone] Allergies No known active allergies Medications blood-glucose [...] 09/09/2023 Assessment & Plan (09/09/2023 11:06 AM HEALTH EQUIPMENT SERVICER): Pain and tenderness on the radial side of bilateral wrists. Instructed to use thumb spica splint at night and continue ibuprofen as needed. Type 2 diabetes mellitus wit h hyperglycemia, without long-term current use of insulin 06/06/2023 Assessment & Plan (08/17/2024 11:12 AM CDT): Ozempic and metformin refilled. Assessment & Plan (09/09/2023 11:17 AM HEALTH EQUIPMENT SERVICER): Continue checking glucose daily. Increase metformin to [...] 06/06/2023 Assessment & Plan (09/09/2023 10:45 AM HEALTH EQUIPMENT SERVICER): Improving after physical therapy. Encouraged continuing home [...] today. Would like to have completed at [facility] in [place]. Aware that RN will call for auth & call [facility] to set up testing. Starting [...] today. Would like to have completed at [facility] in [place]. Aware that RN will call for auth & call [facility] to set up testing. Starting [...] Plan (06/26/2020 12:50 PM CDT): 06/26/20 A1C=6.0% JV=022 HDL=44 UG=650 AOW=063 TC/HDL=3.8 Copy of results as well as [...] urine in office. Will check labs at [facility]. Assessment & Plan (02/17/2020 6:18 PM [...] 2 meals/day (school lunch & meal at [employer] nightly when working). Stressed dietary changes. Need [...] to deal with bullying. Paperwork completed. 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 Encounter for medical examin [facility] to establish care 02/23/2019 02/16/2020 Assessment & [...] healthier, we can set up appointment with pet handler/human resources communications manager. 3. Have an active lifestyle, strive for [...] whatever food is nearby when hungry. Declines pet handler. Has seen 2x at [facility]. Will make f/u appt in 1 month. Elevated hemoglobin A1c 05/22/201606/04 Overview (02/23/2019): May 04, 2016 ([facility] in [place], [place]) hemoglobin A1c 6.2% (< 5.7), TSH 2.75 uIU/mL (0.465-4.68), free T4 0.96 ng/dL (0.78-2.19), ALT 24 U/L (9-52), cholesterol 160 mg/dL (200); triglyceride 117 mg/dL (< 150), HDL-cholesterol 45 mg/dL (> 35), LDL-cholesterol 81 mg/dL (< 130) May 22, 2018 - hemoglobin A1c 5.8% ([facility]) Jul, 2018 - elevated hemoglobin A1c at well child welfare assistant visit (results unavailable) Last Assessment & Plan: [...] Department Care Team Description 05/12/2025 Orders Only [facility] Health Information Management [address] [place] [id number] Scanning, Provider 04/06/2025 Orders Only [facility] Health Information Management [address] [place] [address] Scanning, Provider 03/30/2025 Orders Only [facility] Health Information Management [address] [place] [id number] Scanning, Provider 03/23/2025 Orders Only [facility] Health Information Management [address] [place] [id number] Scanning, Provider from Last 3 Months Immunizations [...] on file Legal Sex Female 1:53 AM HEALTH EQUIPMENT SERVICER Gender Identity Female 11/22/2020 12:52 PM HEALTH EQUIPMENT SERVICER Sexual Orientation Straight 11/22/2020 12 :52 PM HEALTH EQUIPMENT SERVICER Obstetrics History Last Filed Vital Signs Vital Sign Reading Time Taken Comments Blood Pressure 128/74 01/05/2025 9:33 AM HEALTH EQUIPMENT SERVICER Pulse 90 01/05/2025 9:33 AM HEALTH EQUIPMENT SERVICER Temperature 36.4 C (97.5 F) 12/22/2024 9:08 AM HEALTH EQUIPMENT SERVICER Respiratory Rate 16 01/05/2025 9:33 AM HEALTH EQUIPMENT SERVICER Oxygen Saturation 98% 01/05/2025 9:33 AM HEALTH EQUIPMENT SERVICER Inhaled Oxygen Concentration - - Weight 127.5 kg (281 lb 1.6 oz) 024 12:00 PM HEALTH EQUIPMENT SERVICER Height 165.1 cm (5' 5) 10/11/2024 12:0 0 PM HEALTH EQUIPMENT SERVICER Body Mass Index 46.78 10/11/2024 12:00 PM HEALTH EQUIPMENT SERVICER Plan of Treatment Health Maintenance Due Date [...] Routine 10/22/2023 EGFR Routine 10/06/2023 12:19 PM HEALTH EQUIPMENT SERVICER New onset type 2 diabetes mellitus (HCC) HEMOGLOBIN A1C Routine 10/06/2023 12:19 PM HEALTH EQUIPMENT SERVICER New onset type 2 diabetes mellitus (HCC) LIPID PANEL Routine 10/06/2023 12:19 PM HEALTH EQUIPMENT SERVICER Encounter for screening for lipoid disorders ALBUMIN CREATININE RATIO, URINE Routine 10/06/2023 12:19 PM HEALTH EQUIPMENT SERVICER New onset type 2 diabetes mellitus (HCC) [...] Final Result * eGFR (10/06/2023 12:19 PM HEALTH EQUIPMENT SERVICER) eGFR 128 mL/min/1. 73 m2 CONNIE ALSTON [...] was last reviewed 2021. Testing performed by: [address] [address] Blood 10/06/2023 12:1 9 PM HEALTH EQUIPMENT SERVICER 10/06/2023 6:45 PM HEALTH EQUIPMENT SERVICER Roseann Galvan NP LAB BLOOD ORDERABLES Final Result CONNIE ALSTON ([place]) 1 [facility] Department [place] [address] * Albumin Creatinine Ratio, Urine (10/06/2023 12:19 PM HEALTH EQUIPMENT SERVICER) Albumin Ur <12.0 mg/L CONNIE AM H (LIN) Comment: Interpretive Data No reference range established. Current interpretive data was last revised 2019. Testing performed by: [address] [address] Creatinine Ur 214.2 mg/dL CONNIE ALSTON (LIN) Comment: Interpretive Data No reference range established. Current interpretive data was last revised 2019. Testing performed by: [address] [address] Albumin Creatinine Ratio, Ur <6 1 - 29 mg/g CONNIE ALSTON (LIN) Comment:Testing performed by : [address] [address] Urine 10/06/2023 12:1 9 PM HEALTH EQUIPMENT SERVICER 10/06/2023 6:05 PM HEALTH EQUIPMENT SERVICER Roseann Galvan VITICULTURE TEACHER LAB URINE ORDERABLES Final Result CONNIE ALSTON (LIN) 1 [facility] [place] [address] * (ABNORMAL) Hemoglobin A1c (10/06/2023 12:19 PM HEALTH EQUIPMENT SERVICER) Hgb A1C 7.5(H) 4.0 - 5.6 % CONNIE ALSTON (LIN) Comment:Testing performed by : [facility], [address] [place] [address], [address] Estimated Average Glucose 169 mg/dL CONNIE ALSTON (LIN) Comment: The ADA recommends reporting an estimated Average Glucose (eAG) with all Hemoglobin A1c results using the equation derived from a study of 507 normal and diabetic adults. Minority populations were underrepresented and children were not included. (Diabetes Care 31:2672-9967, 2008). The eAG is not equivalent to a fasting glucose. Testing performed by: [address] [address] Blood 10/06/2023 12:1 9 PM HEALTH EQUIPMENT SERVICER 10/06/2023 6:05 PM HEALTH EQUIPMENT SERVICER Roseann Galvan VITICULTURE TEACHER LAB BLOOD ORDERABLES Final Result CONNIE ALSTON (LIN) [address] [facility] [place] [address] * (ABNORMAL) Lipid panel (10/06/2023 12:19 PM HEALTH EQUIPMENT SERVICER) Cholesterol 169 30 - 199 mg/dL CONNIE [...] last revised on 2018. Testing performed by: [facility], [address] [place] [address]., [id number] Triglycerides 162(H) <=149 mg/dL [facility]ER [facility] ([place]) [...] last revised on 2018. Testing performed by: [address] [address] HDL 31(L) >=40 mg/dL [facility] ([place]) [...] last revised on 2018. Testing performed by: [address] [address] LDL, calculated 106 <=129 mg/dL [facility] [...] last revised on 2018. Testing performed by: [address] [address] Non-HDL Cholesterol 138 mg/dL CONNIE ALSTON (LIN) [...] last revised on 2018. Testing performed by: [address] [address] Chol/HDL ratio 5 TURNER ALSTON (LIN) Comment:Testing performed by : [address] [address] Blood 10/06/2023 12:1 9 PM HEALTH EQUIPMENT SERVICER 10/06/2023 6:05 PM HEALTH EQUIPMENT SERVICER Roseann Galvan NP LAB BLOOD ORDERABLES Final Result CONNIE ALSTON (LIN) 1 [facility] Department [place] [address] from Last 3 Months or Most Recently Relevant to Health Maintenance Insurance [place] AN[place] ACC[place] [employer] [place] Care Teams Photonics Engineering Technologist Relationship Specialty Start Date End Date Uriel Walker MD [address] [place] [address] PCP - General Family Medicine 02/23/19 [place] [address] [address] Nurse Practitioner Bike Technician 12/01/24
[2025-06-01 03:46] LABS: Glucose Urine UA 3+ (Negative); Leukocyte Esterase Ur Negative (Negative); Nitrate Urine Negative (Negative); Specific Grav Ur 1.025 (1.010-1.020)
[2025-06-01 03:52] LABS: Add Urine Microscopic? YES; Appearance Urine Cloudy (Clear)
[2025-06-01 03:53] LABS: Pregnancy On Board Control Positive
--- NOTE | 2025-06-01 04:01 | ED_ITS ---
HPI - Abdominal Pain General Chief Complaint: Abdominal Pain Stated Complaint: Abd pain Time Seen by Provider: 06/01/25 03:38 Source: patient Mode of arrival: ambulatory History of Present Illness HPI narrative: 24 years old white female drove herself to the emergency room complaining of right abdominal pain, sharp, stabbing started within 1 and have hour prior to arrival. Patient denies radiation of pain, aggravation or relieving factors. History of diabetes, patient is 3, para 2 1, miscarriage 2 months ago. She denies any fever, chills, nausea, vomiting or history of abdominal surgery Related Data Allergies Allergy/AdvReac Type Severity Reaction Status Date / Time No Known Allergies Allergy Verified 06/01/25 03:39 Review of Systems 2 Review of Systems: All systems reviewed & are unremarkable except as noted in HPI and below PMFSH Past Medical History Medical History Screen for STD (sexually transmitted disease) Diabetes mellitus Menorrhagia Vaginal delivery x1 Nonalcoholic liver disease, chronic Anxiety and depression Surgical History Surgical History History of tonsillectomy and adenoidectomy 2015? Family History Family History Father Hypertension Asthma Mother , 06/2021 Diabetes mellitus Heart failure Kidney disease Hypertension Asthma Grandparent Diabetes mellitus Heart problem Other Patient's mother is Social History Social History Smoking status: Former smoker Tobacco type: e-cigarettes/vaping Second hand tobacco smoke exposure: No Smoking end date: 10/03/21 Additional smoking assessment comments: quit when she found out she was Alcohol intake: current Alcohol use details: heavy drinker prior to find out she is Substance use: never Lack of Transportation: No Lack of Food: Never True Current Housing: I Have Housing Concerned About Future Housing: No Difficulty Paying Gas/Electric Bills: No Difficulty Paying for Meds: No Currently Unemployed: No Difficulty w/ Childcare or Family Care: No Living arrangements: with family Occupation/Education: occupation Additional occupation/education comments: [employer] Gender identity (if verbalized by the patient): Female Spiritual care concerns: No Exam 2 Narrative: General appearance: Well-developed, well-nourished Skin: Normal color Head: Normocephalic, nontraumatic Eyes: Clear conjunctiva ENT: Oropharynx normal, ears normal, nose normal Neck: Supple, nontender Chest and respiratory: Airway patent, no respiratory distress, no accessory muscle use Heart: Regular rate/rhythm Abdomen: Soft, nontender, no organomegaly, quiet bowel sounds Vascular: Normal peripheral pulses, normal capillary refill. Musculoskeletal: Normal range of motion, nontender back Neurologic: Alert and oriented ?3, PAROLE SUPERVISOR is normal as tested, no gross motor deficit Course Vital Signs Vital signs: Vital Signs Temperature 36.8 C 06/01/25 03:30 Pulse Rate 86 06/01/25 03:30 Respiratory Rate 18 06/01/25 03:30 Blood Pressure 144/89 H 06/01/25 03:30 Pulse Oximetry 97 06/01/25 03:30 Oxygen Delivery Room Air 06/01/25 03:30 Temperature 36.1 C L 06/01/25 04:57 Pulse Rate 95 06/01/25 04:57 Respiratory Rate 20 06/01/25 04:57 Blood Pressure 135/84 06/01/25 04:57 Pulse Oximetry 98 06/01/25 04:57 Oxygen Delivery Room Air 06/01/25 04:57 MDM - Abdominal Pain MDM Narrative Medical decision making narrative: patient came to the ED with right abdominal pain vital signs showing a blood pressure of 144/89 otherwise within normal limit Physical examination showing slight tenderness right abdomen otherwise within normal limit patient is morbidly obese Differential diagnosis include cholecystitis, appendicitis, colitis, diverticulitis, constipation, urinary tract infection Blood workup today includes CBC, CMP, lipase showed blood glucose 292 otherwise within normal limit Urinalysis showed no significant abnormalities CT abdomen and pelvis with IV contrast showed no significant abnormalities Differential Diagnosis Differential diagnosis: Likely abdominal pain, acute appendicitis, calculus of kidney, constipation, diverticulitis and pancreatitis Medical Records Attestation: I reviewed the patient's medical records. Lab Data Attestation: I reviewed the patient's lab results. 06/01/25 03:54 06/01/25 03:54 Labs: Lab Results 06/01/25 06/01/25 Range/Units 03:35 03:54 WBC 7.5 (4.8-10.8) K/mm3 RBC 4.64 (4.20-5.40) M/mm3 Hgb 12.3 (12.0-15.0) g/dL Hct 38.4 (35.0-49.0) % MCV 82.8 (78.0-102.0) fL MCH 26.5 L (27.0-31.0) pg MCHC 32.0 (32-36) g/dL RDW 12.1 (11.6-14.4) % Plt Count 324 (150-420) K/mm3 MPV 8.5 L (9.2-11.8) fl Immature Gran % (Auto) 0.3 H (0.0-0.0) % Neut % (Auto) 63.5 (50.0-70.0) % Lymph % (Auto) 28.1 (18.0-42.0) % [place] % (Auto) 5.9 (2.0-11.0) % Eos % (Auto) 1.9 (1.0-6.0) % Baso % (Auto) 0.3 (0.0-1.0) % Lymph # (Auto) 2.11 (1.10-4.50) K/mm3 [place] # (Auto) 0.44 (0.10-0.90) K/mm3 Eos # (Auto) 0.14 (0.02-0.50) K/mm3 Baso # (Auto) 0.02 (0.00-0.10) K/mm3 Abs Immat Gran (auto) 0.02 H (0.00-0.00) K/mm3 Absolute Neuts (auto) 4.78 (1.70-7.20) K/mm3 Absolute Nucleated RBC 0.00 (0.00-0.00) K/mm3 Nucleated RBC % 0.0 (0-0.0) % Sodium 138 (137-145) mmol/L Potassium 3.7 (3.4-5.0) mmol/L Chloride 102 (98-107) mmol/L Carbon Dioxide 29 (22-30) mmol/L Anion Gap 7 (4-12) mmol/L BUN 12 (7-17) mg/dL Creatinine 0.64 L (0.7-1.0) mg/dL Estim Creat Clear Calc 161 ml/min Estimated GFR > 60 (59 - ) Glucose 292 H (65-110) mg/dL Calculated Osmolality 296 H (285-295) mOsm/kg Calcium 8.7 (8.4-10.2) mg/dL Total Bilirubin 0.6 (0.2-1.3) mg/dL AST 37 H (14-36) U/L ALT 43 H (6-35) U/L Alkaline Phosphatase 77 (38-126) U/L Total Protein 6.8 (6.3-8.2) g/dL Albumin 3.8 (3.5-5.1) g/dL Lipase 57 (23-300) U/L Urine Color Yellow (Yellow) Urine Appearance Cloudy A (Clear) Urine pH 6.0 (5.0-8.0) Ur Specific [place] 1.025 H (1.010-1.020) Urine Protein Negative (Negative) Urine Glucose (UA) 3+ H (Negative) Urine Ketones Negative (Negative) Ur Blood (Man) Negative (Negative) Urine Nitrate Negative (Negative) Urine Bilirubin Negative (Negative) Urine Urobilinogen 0.2 (0.2-1.0) mg/dL Ur Leukocyte Esterase Negative (Negative) Urine RBC 0-2 (0-2) /hpf Urine WBC 6-10 H (0-3) /hpf Ur Squamous Epith Cells Many H (Few) /hpf Urine Bacteria 3+ H (None) /hpf Urine Mucus Present /lpf Urine Test Negative Imaging Data Radiologist's impression: CT abdomen and pelvis with IV contrast showed no acute abnormalities Critical Care Time Critical Care Time Critical Care Time: No Discharge Plan Discharge Clinical Impression: Abdominal pain Patient Disposition: Home Condition: Stable Instructions: Abdominal Pain (ED) Additional Instructions: Return if symptoms are worsening , call your family physician for appointment, take Tylenol as as needed for aches and pain, continue home medications. Patient Language: Hungarian Prescriptions: New dicyclomine 10 mg capsule 20 mg PO QID 5 Days Qty: 40 0RF Follow-up/Referrals: Harms,Uriel Sánchez M.D. [Primary Care Provider] -
[2025-06-01 04:05] LABS: Hematocrit 38.4 % (35.0-49.0); Hemoglobin 12.3 g/dL (12.0-15.0); Immature Granulocyte Percent A 0.3 % (0.0-0.0); Lymphocytes Absolute Auto 2.11 K/mm3 (1.10-4.50); Mean Corpuscular HGB Conc 32.0 g/dL (32-36); Mean Corpuscular Hemoglobin 26.5 pg (27.0-31.0); Mean Corpuscular Volume 82.8 fL (78.0-102.0); Nucleated Red Blood Cells Absolute Auto 0.00 K/mm3 (0.00-0.00); Nucleated Red Blood Cells Perc 0.0 % (0-0.0); Platelet Count Result 324 K/mm3 (150-420); Red Blood Count 4.64 M/mm3 (4.20-5.40); White Blood Count 7.5 K/mm3 (4.8-10.8)
[2025-06-01 04:16] LABS: Alanine Aminotransferase 43 U/L (6-35); Albumin Level 3.8 g/dL (3.5-5.1); Alkaline Phosphatase 77 U/L (38-126); Anion Gap 7 mmol/L (4-12); Aspartate Amino Transferase 37 U/L (14-36); Bilirubin,Total 0.6 mg/dL (0.2-1.3); Blood Urea Nitrogen 12 mg/dL (7-17); Calcium 8.7 mg/dL (8.4-10.2); Carbon Dioxide 29 mmol/L (22-30); Chloride 102 mmol/L (98-107); Estimated CRCL calculation 161 ml/min; Estimated Glomerular Filt Rate > 60; Glucose 292 mg/dL (65-110); Lipase 57 U/L (23-300); Osmolality Calculated 296 mOsm/kg (285-295); Potassium 3.7 mmol/L (3.4-5.0); Sodium 138 mmol/L (137-145); Total Protein 6.8 g/dL (6.3-8.2)
[2025-06-01 04:24] VITALS: BP 124/73; PULSE 93; RESP 18; O2SAT 99
[2025-06-01 04:57] VITALS: BP 135/84; PULSE 95; RESP 20; TEMP 36.1; O2SAT 98
[2025-06-01 06:16] VITALS: BP 137/83; PULSE 86; RESP 14; TEMP 36.8; O2SAT 97
== END 2025-06-01 06:18 | disposition home or self-care (01) ==
PROVIDERS: Emergency Provider Emergency Medicine; PCP Family Medicine
DX: R10.9 Unspecified abdominal pain (principal); E11.9 Type 2 diabetes mellitus without complications; Z87.891 Personal history of nicotine dependence
CPT/HCPCS: 36415; 74177; 80053; 81001; 81025; 83690; 85025; 99284; Q9967

== ENCOUNTER 2025-07-19 19:18 | Emergency (ER) | payer BC, SELFPAY ==
[2025-07-19 19:18] VITALS: BP 150/91; PULSE 100; RESP 18; TEMP 36.5; O2SAT 97
--- NOTE | 2025-07-19 19:31 | ED.FEMALEGU ---
HPI - Female Genitourinary General Chief complaint: Urogenital-Female Stated complaint: UTI Time Seen by Provider: 07/19/25 19:26 Source: patient Mode of arrival: ambulatory Limitations: no limitations History of Present Illness HPI Narrative: Patient is a 24-year-old female with burning on urination and pain at the vaginal area near the clitoris according to the patient. She said she had heavy intercourse. No concerns for STDs. MD elicited complaint: dysuria and UTI Pertinent past history: other (None) Onset (ago): day(s) (2) Location of symptoms: external genitalia and urethra Severity: mild Female Urogenital Radiation: Non-Radiating Severity scale (1-10): 2 Consistency: intermittent Vaginal discharge: none Vaginal bleeding: none Urinary symptoms: Dysuria Exacerbating factors: urination and intercourse Relieving factors: none Associated symptoms: denies other symptoms Treatment prior to arrival: none Sexual activity: Yes Patient : No Related Data Allergies Allergy/AdvReac Type Severity Reaction Status Date / Time No Known Allergies Allergy Verified 06/01/25 03:39 Review of Systems Review of Systems: All systems reviewed & are unremarkable except as noted in HPI and below Constitutional: Constitutional: Reports no additional constitutional complaints Eyes: Eyes: Reports no additional eye complaints ENT: Reports system reviewed and no additional complaints, except as documented Cardiovascular: Cardiovascular: Reports no additional cardiovascular complaints Respiratory: Respiratory: Reports no additional respiratory complaints Gastrointestinal: Gastrointestinal: Reports no additional gastrointestinal complaints Genitourinary: Genitourinary: Reports no additional female genitourinary complaints Musculoskeletal: Musculoskeletal: Reports no additional musculoskeletal complaints Integumentary/Breasts: Skin/Breast: Reports system reviewed and no additional complaints, except as docu Neurologic: Reports system reviewed and no additional complaints, except as documented Psychiatric: Psychiatric: Reports no additional psychiatric complaints Endocrine: Endocrine: Reports no additional endocrine complaints Hematologic/Lymphatic: Hematologic/Lymphatic: Reports no additional hematologic/lymphatic complaints Allergic/Immunologic: Allergic/Immunologic: Reports no additional allergic/immunologic complaints PMFSH Past Medical History Medical History Screen for STD (sexually transmitted disease) Diabetes mellitus Menorrhagia Vaginal delivery x1 Nonalcoholic liver disease, chronic Anxiety and depression Surgical History Surgical History History of tonsillectomy and adenoidectomy 2016? Family History Family History Father Hypertension Asthma Mother , 06/2021 Diabetes mellitus Heart failure Kidney disease Hypertension Asthma Grandparent Diabetes mellitus Heart problem Other Patient's mother is Social History Social History Smoking status: Former smoker Tobacco type: e-cigarettes/vaping Second hand tobacco smoke exposure: No Smoking end date: 10/03/21 Additional smoking assessment comments: quit when she found out she was Alcohol intake: current Alcohol use details: heavy drinker prior to find out she is Substance use: never Lack of Transportation: No Lack of Food: Never True Current Housing: I Have Housing Concerned About Future Housing: No Difficulty Paying Gas/Electric Bills: No Difficulty Paying for Meds: No Currently Unemployed: No Difficulty w/ Childcare or Family Care: No Living arrangements: with family Occupation/Education: occupation Additional occupation/education comments: [employer] Gender identity (if verbalized by the patient): Female Spiritual care concerns: No Exam Const: General: healthy appearing Nutritional Appearance: well nourished Orientation/consciousness: patient oriented x3 HENMT: Head: normal to inspection Ears: external ears normal Face/Nose/Sinus: Normal external nose present Eyes: Conjunctivae: conjunctivae normal Pupils: Equal, round and reactive pupils present EOM: EOMs intact bilaterally Neck: Neck: normal visual inspection Chest: Chest palpation & inspection: normal inspection of the chest Resp: Effort & Inspection: normal respiratory effort and not labored Auscultation: clear to auscultation bilaterally and no crackles Cardio: Rate: regular rate Rhythm: regular rhythm Heart sounds: no murmurs GI: Inspection: non-distended GI Palp: Yes Soft to palpation and No Tenderness to palpation present (GI) Auscultation: normal bowel sounds : General: Yes bladder normal to palpation Back/Spine/Pelvis: Back: no CVA tenderness Skin: General skin exam: normal color Rashes: no rashes Wounds: no wounds Neuro: General: patient oriented x3, moves all extremities and no meningeal signs Extrem: General: normal to inspection Psych: Appearance: grossly normal and well kempt Mental Status: mental status grossly normal Course Vital Signs Vital signs: Vital Signs Temperature 36.5 C 07/19/25 19:18 Pulse Rate 100 07/19/25 19:18 Respiratory Rate 18 07/19/25 19:18 Blood Pressure 150/91 H 07/19/25 19:18 Pulse Oximetry 97 07/19/25 19:18 Oxygen Delivery Room Air 07/19/25 19:18 Temperature 36.5 C 07/19/25 19:18 Pulse Rate 100 07/19/25 19:18 Respiratory Rate 18 07/19/25 19:18 Blood Pressure 150/91 H 07/19/25 19:18 Pulse Oximetry 97 07/19/25 19:18 Oxygen Delivery Room Air 07/19/25 19:18 MDM - Female Genitourinary MDM Narrative Medical decision making narrative: Patient is a 24-year-old female with urinary complaints this evening after heavy intercourse the other night. Check UA. Send gonorrhea chlamydia for reassurance. Check urine preg. Lab Data Attestation: I reviewed the patient's lab results. Labs: Lab Results 07/19/25 Range/Units 19:29 Urine Color Yellow (Yellow) Urine Appearance Sl cloudy A (Clear) Urine pH 6.0 (5.0-8.0) Ur Specific [place] 1.025 H (1.010-1.020) Urine Protein Negative (Negative) Urine Glucose (UA) 2+ H (Negative) Urine Ketones 1+ H (Negative) Ur Blood (Man) Negative (Negative) Urine Nitrate Negative (Negative) Urine Bilirubin Negative (Negative) Urine Urobilinogen 0.2 (0.2-1.0) mg/dL Leukocyte Esterase Rfl 1+ H (Negative) MIKE/UL Urine RBC 0-2 (0-2) /hpf Urine WBC 11-20 H (0-3) /hpf Ur Squamous Epith Cells Many H (Few) /hpf Urine Bacteria 2+ H (None) /hpf Urine Mucus Present /lpf Discharge Plan Discharge Clinical Impression: Acute UTI Patient Disposition: Home Condition: Stable Instructions: Antibiotic Form, Urinary Tract Infection in Women (ED) Patient Language: Yoruba Prescriptions: New ciprofloxacin HCl [Cipro] 500 mg tablet 500 mg PO BID 7 Days Qty: 14 0RF No Action dicyclomine 10 mg capsule 20 mg PO QID 5 Days Qty: 40 0RF Follow-up/Referrals: Harms,Uriel Sánchez M.D. [Primary Care Provider] Time of Disposition: 20:14
--- OUTSIDE RECORDS SUMMARY | 2025-07-19 19:48 | XMS_ITS | Clinical Summary ---
Author Organization [facility] Patterns Address [address] [place] [address] Care Team Providers Care Saddle And Side Wire Stitcher Name Role Phone Christine Peterson MD Primary Care Provider [phone] Source Comments [facility] Patterns,non-owned Affiliates and Associated Physician Practices is amultiple site organization consisting of ambulatory clinics and hospital sitesin [place], [place], [place] and [place]. This disclosure is being madepursuant to the Care Everywhere program and may not contain all information available regarding this patient. Last updated 18.[facility]s Allergies No known active allergies Medications * Be aware that medications may not be up to date on this document. Alwaysverify current medications with the patient. Lancets (MICROLET) [facility] Use 5-9 Each once daily Use to [...] Glucagon (BAQSIMI ONE PACK) 3 MG/DOSE POWD [place] 3 mg into the nose as needed [...] and anxiety without thoughts of self harm. [facility] recommendations: 1. I reviewed the [...] in the breast milk. 3. 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 [facility] recommendations: 1. Start magnesium supplement [...] sweetened beverages. 3. Close contact with our cosmetology educator to optimize glycemic control on at [...] glycemic control and surveillance. 9. After hours [facility] triage number provided to call with concerns. 10. Sent with labs today for repeat HgA1c and CMP. Family history of congenital heart defect 2020 Overview (03/26/2021): FOB with hypoplastic left heart. 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 Normal echocardiogram with [facility]. Resolved Problems Problem Noted Date Diagnosed Date Resolved Date Dysuria during in third trimester 06/13/2021 04/30/2022 Assessment & Plan (06/13/2021 5:00 PM CDT): Dysuria present intermittently with 1+ urine protein, patient is normotensive. Reports UTI that was treated in the 2nd trimester. [facility] recommendations: 1. Sent with lab [...] May 04, 2016 ([facility] in [place], [place]) hemoglobin A1c 6.2% (< 5.7), TSH 2.75 uIU/mL (0.465-4.68), free T4 0.96 ng/dL (0.78-2.19), ALT 24 U/L (9-52), cholesterol 160 mg/dL (200); triglyceride 117 mg/dL (< 150), HDL-cholesterol 45 mg/dL (> 35), LDL-cholesterol 81 mg/dL (< 130) May 22, 2018 - hemoglobin A1c 5.8% ([facility]) Jul, 2018 - elevated hemoglobin A1c at well [facility] child [facility] visit (results unavailable) Assessment & Plan (08/25/2018 [...] TSH. 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 Snoring 05/17/2011 [...] on file Legal Sex Female 5:41 AM SEXOLOGIST Gender Identity Not on file Sexual Orientation [...] 19+ 3-dose series) 2020 PAP SMEAR 2022 DEPRESSION SCREENING 11/03/2024 COVID-19 VACCINE (1 - 2023-2 5 season) 2025 INFLUENZA VACCINE (#1) 2025 07/15/2019 ZOSTER VACCINE [...] to complete this topic Insurance [place] [address] MEDICAID - [place] [facility] MEDICAID - OUT OF STATE Care Teams Saddle And Side Wire Stitcher Relationship Specialty Start Date End Date Christine Peterson MD [address] [facility] [address] [place] [phone] PCP - General Pediatrics 07/29/18
--- OUTSIDE RECORDS SUMMARY | 2025-07-19 19:48 | XMS_ITS | Clinical Summary ---
Author Organization [facility] Address [facility] [place] [address] Care Team Providers Care Specimen Collector Name Role Phone Uriel Walker MD Primary Care Provider [phone] Allergies No known active allergies Medications Glucagon [...] often do you attend chur ch or islam services? Never 04/26/2022 Do you belong to any clubs o r organizations such as sikh groups, unions, fraternal or athletic groups, or [...] and heating? Not hard at all 04/26/2022 [facility] - [...] series) 01/13/2020 07/15/2019 COVID-19 Vaccine (2023-25 season) 2025 DTaP, Tdap and Td Vaccines (9 - [...] patient's age to complete this topic Insurance [facility] Care Teams Specimen Collector Relationship Specialty Start Date End Date Uriel Walker MD [address] [place] [address] PCP - General INTERNAL MEDICINE 04/26/22
--- OUTSIDE RECORDS SUMMARY | 2025-07-19 19:48 | XMS_ITS | Clinical Summary ---
Author Organization [facility] Address [address] [place] [address] Care Team Providers Care Paper Sales Representative Name Role Phone Uriel Walker MD Primary Care Provider [phone] Alisson Chavis HOUSEKEEPING ASSOCIATE Unavailable [phone] Allergies No known active allergies Medications blood-glucose [...] 09/09/2023 Assessment & Plan (09/09/2023 11:06 AM BATTING MACHINE OPERATOR): Pain and tenderness on the radial side of bilateral wrists. Instructed to use thumb spica splint at night and continue ibuprofen as needed. Type 2 diabetes mellitus wit h hyperglycemia, without long-term current use of insulin 06/06/2023 Assessment & Plan (08/17/2024 11:12 AM CDT): Ozempic and metformin refilled. Assessment & Plan (09/09/2023 11:17 AM BATTING MACHINE OPERATOR): Continue checking glucose daily. Increase metformin [...] 06/06/2023 Assessment & Plan (09/09/2023 10:45 AM BATTING MACHINE OPERATOR): Improving after physical therapy. Encouraged continuing [...] today. Would like to have completed at [facility] in [place]. Aware that RN will call for auth & call [facility] to set up testing. Starting new [...] today. Would like to have completed at [facility] in [place]. Aware that RN will call for auth & call [facility] to set up testing. Starting new [...] Plan (06/26/2020 12:50 PM CDT): 06/26/20 A1C=6.0% OG=510 HDL=44 MX=170 JYI=510 TC/HDL=3.8 Copy of results as well as [...] urine in office. Will check labs at [facility]. Assessment & Plan (02/17/2020 6:18 PM [...] 2 meals/day (school lunch & meal at [facility] nightly when working). Stressed dietary changes. Need [...] bullying. 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 Encounter for medical examin [facility] [place] to establish care 02/23/2019 02/16/2020 Assessment & [...] healthier, we can set up appointment with electrical system specialist/operations administrator. 3. Have an active lifestyle, strive [...] whatever food is nearby when hungry. Declines electrical system specialist. Has seen 2x at [facility]. Will make f/u appt in 1 month. Elevated hemoglobin A1c 05/22/201606/04 Overview (02/23/2019): May 04, 2016 ([facility] in [place], [place]) hemoglobin A1c 6.2% (< 5.7), TSH 2.75 uIU/mL (0.465-4.68), free T4 0.96 ng/dL (0.78-2.19), ALT 24 U/L (9-52), cholesterol 160 mg/dL (200); triglyceride 117 mg/dL (< 150), HDL-cholesterol 45 mg/dL (> 35), LDL-cholesterol 81 mg/dL (< 130) May 22, 2018 - hemoglobin A1c 5.8% ([facility]) Jul, 2018 - elevated hemoglobin A1c at well child support specialist visit (results unavailable) Last Assessment & [...] Encounters Date Type Department Care Team Description 06/01/2025 Orders Only [facility] Health Information Management [address] [place] [id number] Scanning, Provider 05/12/2025 Orders Only [facility] [address] [place] [id number] Scanning, Provider from Last 3 Months Immunizations [...] Brandi Wilder Diabetes Mother Brandi Wilder Diabetes chiquitai tus; Early Mother Brandi Wilder Heart attack [...] on file Legal Sex Female 1:53 AM BATTING MACHINE OPERATOR Gender Identity Female 11/22/2020 12:52 PM BATTING MACHINE OPERATOR Sexual Orientation Straight 11/22/2020 12 :52 PM BATTING MACHINE OPERATOR Obstetrics History Last Filed Vital Signs Vital Sign Reading Time Taken Comments Blood Pressure 128/74 01/05/2025 9:33 AM BATTING MACHINE OPERATOR Pulse 90 01/05/2025 9:33 AM BATTING MACHINE OPERATOR Temperature 36.4 C (97.5 F) 12/22/2024 9:08 AM BATTING MACHINE OPERATOR Respiratory Rate 16 01/05/2025 9:33 AM BATTING MACHINE OPERATOR Oxygen Saturation 98% 01/05/2025 9:33 AM BATTING MACHINE OPERATOR Inhaled Oxygen Concentration - - Weight 127.5 kg (281 lb 1.6 oz) 024 12:00 PM BATTING MACHINE OPERATOR Height 165.1 cm (5' 5) 10/11/2024 12:0 0 PM BATTING MACHINE OPERATOR Body Mass Index 46.78 10/11/2024 12:00 PM BATTING MACHINE OPERATOR Plan of Treatment Health Maintenance Due Date Last Done Comments Cervical Cancer Screening 2001 Chlamydia and Gonorrhea (GC/ CT) Screening 2001 Hepatitis C Screening 2001 Pneumococcal vaccine <65 (1 of 1 - PPSV23, PCV20, or PCV21) 2007 11/15/2002, 05/28/2002, 03/16/2002, Additional history exists Regular Well Visit/Exam 18-64 2019 Meningococcal B Vaccine (2 o f 2 - Bexsero SCDM 2-dose series) 01/13/2020 07/15/2019 Hemoglobin A1C 04/06/2024 10/06/2023, 0 05/2023, 06/06/2023, Additional history exists Foot Exam 09/09/2024 09/09/2023 Albumin Creatinine Ratio, Urine 10/06/2024 , 02/18/2020 Lipid Panel 10/06/2024 10/06/2023, 0 05/2023, 06/26/2020, Additional history exists eGFR 10/06/2024 10/06/2023, 0 02/2022, 09/27/2020, Additional history exists Dilated Eye [...] Date/Time Associated Diagnosis Comments SCAN - LABS 06/01/2025 SCAN - RADIOLOGY/IMAGING 06/01/2025 SCAN - LABS 05/12/2025 HM DIABETES EYE EXAM Routine 10/22/2023 EGFR Routine 10/06/2023 12:19 PM BATTING MACHINE OPERATOR New onset type 2 diabetes mellitus (HCC) HEMOGLOBIN A1C Routine 10/06/2023 12:19 PM BATTING MACHINE OPERATOR New onset type 2 diabetes mellitus (HCC) LIPID PANEL Routine 10/06/2023 12:19 PM BATTING MACHINE OPERATOR Encounter for screening for lipoid disorders ALBUMIN CREATININE RATIO, URINE Routine 10/06/2023 12:19 PM BATTING MACHINE OPERATOR New onset type 2 diabetes mellitus (HCC) from Last 3 Months or Most Recently Relevant to Health Maintenance Results * SCAN - RADIOLOGY/IMAGING (06/01/2025) Anatomical Region Laterality Modality Other us Provider Scanning Final Result * SCAN - LABS (06/01/2025) us Provider Scanning Final Result * SCAN - LABS (05/12/2025) us Provider Scanning Final Result * DIABETES EYE EXAM (10/22/2023) SCRIBED DIABETIC DILATED EYE EXAM Normal us Historical Provider MD HEALTH MAINTENANCE Final Result * eGFR (10/06/2023 12:19 PM BATTING MACHINE OPERATOR) eGFR 128 mL/min/1. 73 m2 CONNIE [...] was last reviewed 2021. Testing performed by: [facility], [address] [place] [address]., [id number] Blood 10/06/2023 12:1 9 PM BATTING MACHINE OPERATOR 10/06/2023 6:45 PM BATTING MACHINE OPERATOR Roseann Galvan HOUSEKEEPING ASSOCIATE LAB BLOOD ORDERABLES Final Result Performing Organization Address City/[facility] Co de Phone Number CONNIE ALSTON (LIN) 1 [facility] [place] [address] * Albumin Creatinine Ratio, Urine (10/06/2023 12:19 PM BATTING MACHINE OPERATOR) Albumin Ur <12.0 mg/L CARLOSNER AM H (LIN) Comment: Interpretive Data No reference range established. Current interpretive data was last revised 2019. Testing performed by: [facility], [address] [place] [address]., [id number] Creatinine Ur 214.2 mg/dL CONNIE [facility] (LIN) Comment: Interpretive Data No reference range established. Current interpretive data was last revised 2019. Testing performed by: [facility], [address] [place] [address]., [id number] Albumin Creatinine Ratio, Ur <6 1 - 29 mg/g CONNIE [facility] (LIN) Comment:Testing performed by : [facility], [address] [place] [address]., [id number] Urine 10/06/2023 12:1 9 PM BATTING MACHINE OPERATOR 10/06/2023 6:05 PM BATTING MACHINE OPERATOR Roseann Galvan HOUSEKEEPING ASSOCIATE LAB URINE ORDERABLES Final Result Performing Organization Address [facility] Co de Phone Number CONNIE [facility] (LIN) 1 [facility] [place] [address] * (ABNORMAL) Hemoglobin A1c (10/06/2023 12:19 PM BATTING MACHINE OPERATOR) Hgb A1C 7.5(H) 4.0 - 5.6 % CONNIE [facility] (LIN) Comment:Testing performed by : [facility], [address] [place] [address]., [id number] Estimated Average Glucose 169 mg/dL CONNIE ALSTON (LIN) Comment: The ADA recommends reporting an estimated Average Glucose (eAG) with all Hemoglobin A1c results using the equation derived from a study of 507 normal and diabetic adults. Minority populations were underrepresented and children were not included. (Diabetes Care 31:1729-0372, 2008). The eAG is not equivalent to a fasting glucose. Testing performed by: [facility], [address] [place] [address]., [id number] Blood 10/06/2023 12:1 9 PM BATTING MACHINE OPERATOR 10/06/2023 6:05 PM BATTING MACHINE OPERATOR Roseann Galvan NP LAB BLOOD ORDERABLES Final Result CONNIE ALSTON (LIN) 1 [facility] Department [place] [address] * (ABNORMAL) Lipid panel (10/06/2023 12:19 PM BATTING MACHINE OPERATOR) Cholesterol 169 30 - 199 mg/dL [...] last revised on 2018. Testing performed by: [facility], [address] [place] [address]., [address] Triglycerides 162(H) <=149 mg/dL CONNIE ALSTON (LIN) [...] last revised on 2018. Testing performed by: [facility], [address] [place] [address]., [id number] HDL 31(L) >=40 mg/dL CERNER [facility] (LIN) [...] last revised on 2018. Testing performed by: [facility], [address] [place] [address]., [address] LDL, calculated 106 <=129 mg/dL CERNER [facility] [...] last revised on 2018. Testing performed by: [facility], [address] [place] [address]., [address] Non-HDL Cholesterol 138 mg/dL [facility] (LIN) [...] last revised on 2018. Testing performed by: [facility], [address] [place] [address]., [address] Chol/HDL ratio 5 TURNER ALSTON ([place]REE[place]) Comment:Testing performed by : [facility], [address] [place] [address]., [id number] Blood 10/06/2023 12:1 9 PM BATTING MACHINE OPERATOR 10/06/2023 6:05 PM BATTING MACHINE OPERATOR Roseann Galvan HOUSEKEEPING ASSOCIATE LAB BLOOD ORDERABLES Final Result CONNIE ALECIA ([place]) 1 [facility] Department of Laboratories [place] [id number] from Last 3 Months or Most Recently Relevant to Health Maintenance Insurance [facility] Member Subscriber Plan / Payer (Ef fective 2018-Present) Name:Brandie Torres Relation to Subscriber:Child Name:BRANDI WILDER Date of :1982 (Home) Address: [address] [place] [id number] Payer ID:[id number] (NAIC) Type: ALLIANCE Address: [id number] [facility] Care Teams Paper Sales Representative Relationship Specialty Start Date End Date Uriel Walker MD [address] [place] [address] PCP - General Family Medicine 02/23/19 [place] [address] [address] Nurse Practitioner Machine Etcher 12/01/24
[2025-07-19 19:56] LABS: Add Urine Microscopic? YES; Glucose Urine UA 2+ (Negative); Leukocyte Esterase Ur 1+ LEU/UL (Negative); Nitrate Urine Negative (Negative); Specific Grav Ur 1.025 (1.010-1.020)
[2025-07-19 20:01] LABS: Appearance Urine Sl Cloudy (Clear)
[2025-07-19] MEDS: CIPROFLOXACIN 500 MG TAB PO (20:31)
[2025-07-19 20:37] VITALS: BP 152/95; PULSE 90; RESP 15; TEMP 36.8; O2SAT 100
[2025-07-19 20:41] LABS: Pregnancy On Board Control Positive
== END 2025-07-19 20:40 | disposition home or self-care (01) ==
PROVIDERS: Emergency Provider Emergency Medicine; PCP Family Medicine
DX: N39.0 Urinary tract infection, site not specified (principal); E11.9 Type 2 diabetes mellitus without complications; Z87.891 Personal history of nicotine dependence
CPT/HCPCS: 81001; 81025; 99283; A9270

== ENCOUNTER 2025-07-27 17:43 | Emergency (ER) | payer BC, SELFPAY ==
[2025-07-27 17:45] VITALS: BP 171/97; PULSE 94; RESP 16; TEMP 36.6; O2SAT 99
--- NOTE | 2025-07-27 17:45 | ED_ITS ---
HPI - Female Genitourinary General Chief complaint: Urogenital-Female Stated complaint: pain in the vaginal area Time Seen by Provider: 07/27/25 17:45 Source: patient Mode of arrival: ambulatory Limitations: no limitations History of Present Illness HPI Narrative: Patient is a 24-year-old female with a vaginal complaint of irritation and pain with a recent UTI. She is having burning on urination but mostly because the urine is hitting the skin. She has irritated skin in the vaginal area. Her buttocks is also painful. MD elicited complaint: dysuria, UTI and genital rash Pertinent past history: other (None) Onset (ago): week(s) (1) Location of symptoms: external genitalia and vaginal Severity: moderate Female Urogenital Radiation: Non-Radiating Severity scale (1-10): 4 Quality of pain: sharp and burning Consistency: constant Vaginal discharge: none Vaginal bleeding: none (Currently on her menstrual cycle) Urinary symptoms: Dysuria (Mostly when it touches the skin coming out of the urethra to the rash) Exacerbating factors: urination Relieving factors: none Associated symptoms: denies other symptoms Treatment prior to arrival: none Sexual activity: Yes Patient : No Related Data Allergies Allergy/AdvReac Type Severity Reaction Status Date / Time No Known Allergies Allergy Verified 07/27/25 17:48 Review of Systems Review of Systems: All systems reviewed & are unremarkable except as noted in HPI and below Constitutional: Constitutional: Reports no additional constitutional complaints Eyes: Eyes: Reports no additional eye complaints ENT: Reports system reviewed and no additional complaints, except as documented Cardiovascular: Cardiovascular: Reports no additional cardiovascular complaints Respiratory: Respiratory: Reports no additional respiratory complaints Gastrointestinal: Gastrointestinal: Reports no additional gastrointestinal complaints Genitourinary: Genitourinary: Reports no additional female genitourinary complaints Musculoskeletal: Musculoskeletal: Reports no additional musculoskeletal complaints Integumentary/Breasts: Skin/Breast: Reports system reviewed and no additional complaints, except as docu Neurologic: Reports system reviewed and no additional complaints, except as documented Psychiatric: Psychiatric: Reports no additional psychiatric complaints Endocrine: Endocrine: Reports no additional endocrine complaints Hematologic/Lymphatic: Hematologic/Lymphatic: Reports no additional hematologic/lymphatic complaints Allergic/Immunologic: Allergic/Immunologic: Reports no additional allergic/immunologic complaints PMFSH Past Medical History Medical History Screen for STD (sexually transmitted disease) Diabetes mellitus Menorrhagia Vaginal delivery x1 Nonalcoholic liver disease, chronic Anxiety and depression Surgical History Surgical History History of tonsillectomy and adenoidectomy 2015? Family History Family History Father Hypertension Asthma Mother , 06/2021 Diabetes mellitus Heart failure Kidney disease Hypertension Asthma Grandparent Diabetes mellitus Heart problem Other Patient's mother is Social History Social History Smoking status: Former smoker Tobacco type: e-cigarettes/vaping Second hand tobacco smoke exposure: No Smoking end date: 10/03/21 Additional smoking assessment comments: quit when she found out she was Alcohol intake: current Alcohol use details: heavy drinker prior to find out she is Substance use: never Lack of Transportation: No Lack of Food: Never True Current Housing: I Have Housing Concerned About Future Housing: No Difficulty Paying Gas/Electric Bills: No Difficulty Paying for Meds: No Currently Unemployed: No Difficulty w/ Childcare or Family Care: No Living arrangements: with family Occupation/Education: occupation Additional occupation/education comments: [employer] Gender identity (if verbalized by the patient): Female Spiritual care concerns: No Exam Const: General: healthy appearing Nutritional Appearance: well nourished Orientation/consciousness: patient oriented x3 HENMT: Head: normal to inspection Ears: external ears normal Face/Nose/Sinus: Normal external nose present Eyes: Conjunctivae: conjunctivae normal Pupils: Equal, round and reactive pupils present EOM: EOMs intact bilaterally Neck: Neck: normal visual inspection Chest: Chest palpation & inspection: normal inspection of the chest Resp: Effort & Inspection: normal respiratory effort and not labored Aus cultation: clear to auscultation bilaterally and no crackles Cardio: Rate: regular rate Rhythm: regular rhythm Heart sounds: no murmurs GI: Inspection: non-distended GI Palp: Yes Soft to palpation and No Tenderness to palpation present (GI) Auscultation: normal bowel sounds : General: Yes bladder normal to palpation Back/Spine/Pelvis: Back: no CVA tenderness Skin: General skin exam: normal color Rashes: rash noted Wounds: wound noted Other: 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 present with entire examination: Perineal area and vagina outer region has inflammation and irritation of skin of dermatitis which extends to the buttocks and 1 area of excoriation and denuded from itching and pruritus Neuro: General: patient oriented x3, moves all extremities, no meningeal signs, no focal motor deficits and CN's II-XI intact bilaterally Extrem: General: normal to inspection Psych: Appearance: grossly normal Mental Status: mental status grossly normal Affect: normal affect Course Vital Signs Vital signs: Vital Signs Temperature 36.6 C 07/27/25 17:45 Pulse Rate 94 07/27/25 17:45 Respiratory Rate 16 07/27/25 17:45 Blood Pressure 171/97 H 07/27/25 17:45 Pulse Oximetry 99 07/27/25 17:45 Oxygen Delivery Room Air 07/27/25 17:45 Temperature 36.6 C 07/27/25 18:52 Pulse Rate 82 07/27/25 18:52 Respiratory Rate 16 07/27/25 18:52 Blood Pressure 140/69 07/27/25 18:52 Pulse Oximetry 99 07/27/25 18:52 Oxygen Delivery Room Air 07/27/25 18:52 MDM - Female Genitourinary MDM Narrative Medical decision making narrative: Patient is a 24-year-old female with a perineal rash and vagina area for the past week. She was recently treated for UTI. She did not finish antibiotics. Check UA. Desonide topically. GC chlamydia sent. Preg test. She is on her menstrual cycle. Diflucan 150 mg p.o. and prednisone 40 mg p.o.. Lab Data Labs: Lab Results 07/27/25 Range/Units 17:52 Urine Color Red A (Yellow) Urine Appearance Cloudy A (Clear) Urine pH 6.0 (5.0-8.0) Ur Specific [place] 1.020 (1.010-1.020) Urine Protein 1+ H (Negative) Urine Glucose (UA) 3+ H (Negative) Urine Ketones Trace H (Negative) Ur Blood (Man) 3+ H (Negative) Urine Nitrate Negative (Negative) Urine Bilirubin Negative (Negative) Urine Urobilinogen 0.2 (0.2-1.0) mg/dL Leukocyte Esterase Rfl Negative (Negative) MIKE/UL Urine RBC >100 H (0-2) /hpf Urine WBC 0-5 (0-3) /hpf Ur Squamous Epith Cells Moderate (Few) /hpf Urine Bacteria Trace (None) /hpf Urine Test Negative C. trachomatis (PCR) Pending N. gonorrhoeae (PCR) Pending Discharge Plan Discharge Clinical Impression: Dermatitis Vaginitis Qualifiers: Chronicity: acute Qualified Code(s): N76.0 - Acute vaginitis Patient Disposition: Home Condition: Stable Instructions: Dermatitis (ED) Patient Language: Slovak Prescriptions: New desonide 0.05 % cream 1 applic topical BID PRN (Reason: skin irritation) Qty: 15 0RF No Action dicyclomine 10 mg capsule 20 mg PO QID 5 Days Qty: 40 0RF ciprofloxacin HCl [Cipro] 500 mg tablet 500 mg PO BID 7 Days Qty: 14 0RF Follow-up/Referrals: Harms,Uriel Sánchez M.D. [Primary Care Provider] Time of Disposition: 18:46
--- OUTSIDE RECORDS SUMMARY | 2025-07-27 17:45 | XMS_ITS | Clinical Summary ---
Author Organization [facility] Address [address] [place] [phone] Phone Care Team Providers Care Rn Telehealth Name Role Phone Unavailable Primary Care Provider [...] 2001 HPV VACCINES Completed 04/23/2016, 05/07/2013 Insurance [facility] BLUE ACCESS CHOICE
--- OUTSIDE RECORDS SUMMARY | 2025-07-27 17:45 | XMS_ITS | Clinical Summary ---
Author Organization [facility] Address [facility] [place] [address] Care Team Providers Care Surface Boss Name Role Phone Uriel Walker MD Primary Care Provider [phone] Allergies No known active allergies Medications Glucagon [...] often do you attend chur ch or congregational services? Never 04/26/2022 Do you belong to any clubs o r organizations such as episcopalian groups, unions, fraternal or athletic groups, or [...] and heating? Not hard at all 04/26/2022 [facility] - Occupational Stress [...] place to sleep or slept in a half-way (including now)? No 04/26/2022 Comments No Sex [...] patient's age to complete this topic Insurance [facility] Care Teams Surface Boss Relationship Specialty Start Date End Date Uriel Walker MD [address] [place] [address] PCP - General INTERNAL MEDICINE 04/26/22
--- OUTSIDE RECORDS SUMMARY | 2025-07-27 17:45 | XMS_ITS | Clinical Summary ---
[facility] Organization [facility] Address [address] [place] [address] Care Team Providers Care Guest Services Representative Name Role Phone Uriel Walker MD Primary Care Provider [phone] Alisson Chavis PHOTOGRAPHIC SPECIALIST Unavailable [phone] Allergies No known active allergies Medications blood-glucose [...] 09/09/2023 Assessment & Plan (09/09/2023 11:06 AM YARD PIPE GRADER): Pain and tenderness on the radial side of bilateral wrists. Instructed to use thumb spica splint at night and continue ibuprofen as needed. Type 2 diabetes mellitus wit h hyperglycemia, without long-term current use of insulin 06/06/2023 Assessment & Plan (08/17/2024 11:12 AM CDT): Ozempic and metformin refilled. Assessment & Plan (09/09/2023 11:17 AM YARD PIPE GRADER): Continue checking glucose daily. Increase metformin to [...] 06/06/2023 Assessment & Plan (09/09/2023 10:45 AM YARD PIPE GRADER): Improving after physical therapy. Encouraged continuing home [...] today. Would like to have completed at [facility] in [place]. Aware that RN will call for auth & call [facility] to set up testing. Starting [...] today. Would like to have completed at [facility] in [place]. Aware that RN will call for auth & call [facility] to set up testing. Starting [...] Plan (06/26/2020 12:50 PM CDT): 06/26/20 A1C=6.0% ZD=978 HDL=44 EU=551 RXA=247 TC/HDL=3.8 Copy of results as well as [...] 2 meals/day (school lunch & meal at [employer] nightly when working). Stressed dietary changes. Need [...] to deal with bullying. 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 Encounter for medical examin [facility] to establish care 02/23/2019 02/16/2020 Assessment [...] healthier, we can set up appointment with [id number] armor crewman/crop and soil scientist. 3. Have an active lifestyle, strive for [...] whatever food is nearby when hungry. Declines [id number] armor crewman. Has seen 2x at [facility]. Will make f/u appt in 1 month. Elevated hemoglobin A1c 05/22/201606/04 Overview (02/23/2019): May 04, 2016 ([facility] in [place], [place]) hemoglobin A1c 6.2% (< 5.7), TSH 2.75 uIU/mL (0.465-4.68), free T4 0.96 ng/dL (0.78-2.19), ALT 24 U/L (9-52), cholesterol 160 mg/dL (200); triglyceride 117 mg/dL (< 150), HDL-cholesterol 45 mg/dL (> 35), LDL-cholesterol 81 mg/dL (< 130) May 22, 2018 - hemoglobin A1c 5.8% ([facility]) Jul, 2018 - elevated hemoglobin A1c at well child support agent visit (results unavailable) Last Assessment & Plan: [...] Department Care Team Description 06/01/2025 Orders Only [facility] Health Information Management [address] [place] [id number] Scanning, Provider 05/12/2025 Orders Only [facility] [address] [place] [id number] Scanning, Provider from Last 3 Months Immunizations [...] 40.0-44.9, adult (HCC ) Anxiety Diabetes mellitus Hypertension Family History Medical History Relation Name [...] on file Legal Sex Female 1:53 AM YARD PIPE GRADER Gender Identity Female 11/22/2020 12:52 PM YARD PIPE GRADER Sexual Orientation Straight 11/22/2020 12 :52 PM YARD PIPE GRADER Obstetrics History Last Filed Vital Signs Vital Sign Reading Time Taken Comments Blood Pressure 128/74 01/05/2025 9:33 AM YARD PIPE GRADER Pulse 90 01/05/2025 9:33 AM YARD PIPE GRADER Temperature 36.4 C (97.5 F) 12/22/2024 9:08 AM YARD PIPE GRADER Respiratory Rate 16 01/05/2025 9:33 AM YARD PIPE GRADER Oxygen Saturation 98% 01/05/2025 9:33 AM YARD PIPE GRADER Inhaled Oxygen Concentration - - Weight 127.5 kg (281 lb 1.6 oz) 024 12:00 PM YARD PIPE GRADER Height 165.1 cm (5' 5) 10/11/2024 12:0 0 PM YARD PIPE GRADER Body Mass Index 46.78 10/11/2024 12:00 PM YARD PIPE GRADER Plan of Treatment Health Maintenance Due Date [...] Date/Time Associated Diagnosis Comments SCAN - LABS 07/19/2025 SCAN - LABS 06/01/2025 SCAN - RADIOLOGY/IMAGING 06/01/2025 SCAN - LABS 05/12/2025 HM DIABETES EYE EXAM Routine 10/22/2023 EGFR Routine 10/06/2023 12:19 PM YARD PIPE GRADER New onset type 2 diabetes mellitus (HCC) HEMOGLOBIN A1C Routine 10/06/2023 12:19 PM YARD PIPE GRADER New onset type 2 diabetes mellitus (HCC) LIPID PANEL Routine 10/06/2023 12:19 PM YARD PIPE GRADER Encounter for screening for lipoid disorders ALBUMIN CREATININE RATIO, URINE Routine 10/06/2023 12:19 PM YARD PIPE GRADER New onset type 2 diabetes mellitus (HCC) from Last 3 Months or Most Recently Relevant to Health Maintenance Results * SCAN - LABS (07/19/2025) us Provider Scanning Final Result * SCAN - RADIOLOGY/IMAGING (06/01/2025) Anatomical Region Laterality Modality Other us Provider Scanning Final Result * SCAN - LABS (06/01/2025) us Provider Scanning Final Result * SCAN - LABS (05/12/2025) us Provider Scanning Final Result * DIABETES EYE EXAM (10/22/2023) SCRIBED DIABETIC DILATED EYE EXAM Normal us Historical Provider MD HEALTH MAINTENANCE Final Result * eGFR (10/06/2023 12:19 PM YARD PIPE GRADER) eGFR 128 mL/min/1. 73 m2 CONNIE ALSTON [...] was last reviewed 2021. Testing performed by: [facility], [address] [place] [address]., [id number] Blood 10/06/2023 12:1 9 PM YARD PIPE GRADER 10/06/2023 6:45 PM YARD PIPE GRADER Roseann Galvan NP LAB BLOOD ORDERABLES Final Result Performing Organization Address [facility] Co de Phone Number [facility] ([place]) [address] [facility] [place] [address] * Albumin Creatinine Ratio, Urine (10/06/2023 12:19 PM YARD PIPE GRADER) Albumin Ur <12.0 mg/L [facility] ([place]) Comment: Interpretive Data No reference range established. Current interpretive data was last revised 2019. Testing performed by: [facility], [address] [place] [address]., [id number] Creatinine Ur 214.2 mg/dL CONNIE [facility] ([place]) Comment: Interpretive Data No reference range established. Current interpretive data was last revised 2019. Testing performed by: [address] [address] Albumin Creatinine Ratio, Ur <6 1 - 29 mg/g CONNIE [facility] ([place]) Comment:Testing performed by : [address] [address] Urine 10/06/2023 12:1 9 PM YARD PIPE GRADER 10/06/2023 6:05 PM YARD PIPE GRADER Roseann Galvan NP LAB URINE ORDERABLES Final Result Performing Organization Address [facility] Co de Phone Number [facility] ([place]) 1 [facility] [place] [address] * (ABNORMAL) Hemoglobin A1c (10/06/2023 12:19 PM YARD PIPE GRADER) Hgb A1C 7.5(H) 4.0 - 5.6 % CONNIE ALSTON ([place]) Comment:Testing performed by : [facility], [address] [place] [address]., [address] Estimated Average Glucose 169 mg/dL CONNIE ALSTON ([place]) Comment: The ADA recommends reporting an estimated Average Glucose (eAG) with all Hemoglobin A1c results using the equation derived from a study of 507 normal and diabetic adults. Minority populations were underrepresented and children were not included. (Diabetes Care 31:8504-2058, 2008). The eAG is not equivalent to a fasting glucose. Testing performed by: [facility], [address] [place] [address]., [address] Blood 10/06/2023 12:1 9 PM YARD PIPE GRADER 10/06/2023 6:05 PM YARD PIPE GRADER Roseann Galvan PHOTOGRAPHIC SPECIALIST LAB BLOOD ORDERABLES Final Result CONNIE ALSTON ([place]) 1 [facility] Department [place] [address] * (ABNORMAL) Lipid panel (10/06/2023 12:19 PM YARD PIPE GRADER) Cholesterol 169 30 - 199 mg/dL CONNIE [...] last revised on 2018. Testing performed by: [facility], [address] [place] [address], [place]., [address] Triglycerides 162(H) <=149 mg/dL CONNIE ALSTON ([place]) [...] last revised on 2018. Testing performed by: [facility], [address] [place] [address]., [address] HDL 31(L) >=40 mg/dL CERETHEL ALSTON ([place]) Comment: Interpretive Data [...] last revised on 2018. Testing performed by: [facility], [address] [place] [address]., [address] LDL, calculated 106 <=129 mg/dL CONNIE ALSTON [...] last revised on 2018. Testing performed by: [facility], [address] [place] [address]., [address] Non-HDL Cholesterol 138 mg/dL [facility] ([place]) [...] last revised on 2018. Testing performed by: [facility], [address] [place] [address]., [address] Chol/HDL ratio 5 CARLOSNE Faby ALSTON ([place]) Comment:Testing performed by : [facility], [address] [place] [address]., [address] Blood 10/06/2023 12:1 9 PM YARD PIPE GRADER 10/06/2023 6:05 PM YARD PIPE GRADER Roseann Galvan PHOTOGRAPHIC SPECIALIST LAB BLOOD ORDERABLES Final Result Performing Organization Address City/State/[facility] Co de Phone Number CONNIE ALECIA ([place]) 1 [facility] Department [place] [address] from Last 3 Months or Most Recently Relevant to Health Maintenance Insurance [facility] [place] [address] [facility] [employer] [facility] Care Teams Guest Services Representative Relationship Specialty Start Date End Date Uriel Walker MD [address] [place] [address] PCP - General Family Medicine 02/23/19 [place] [address] [address] Nurse Practitioner Fire Services Plumber 12/01/24
--- OUTSIDE RECORDS SUMMARY | 2025-07-27 17:46 | XMS_ITS | Clinical Summary ---
Author Organization [facility] Address [address] [place] [address] Care Team Providers Care Brakeshoe Repairer Name Role Phone Christine Peterson MD Primary Care Provider [phone] Source Comments [facility],non-owned Affiliates and Associated Physician Practices is amultiple site organization consisting of ambulatory clinics and hospital sitesin [place], [place], [place] and [place]. This disclosure is being madepursuant to the Care Everywhere program and may not contain all information available regarding this patient. Last updated 18.[facility] Allergies No known active allergies Medications * Be aware that medications may not be up to date on this document. Alwaysverify current medications with the patient. Lancets ([place]) [facility] Use 5-9 Each [...] Glucagon (BAQSIMI ONE PACK) 3 MG/DOSE POWD [place] 3 mg into the nose as needed [...] and anxiety without thoughts of self harm. [facility] recommendations: 1. I reviewed the risks [...] in the breast milk. 3. 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 [facility] recommendations: 1. Start magnesium supplement to [...] from birthweights. I advised Brandie that the [employer] recommends delivery [...] sweetened beverages. 3. Close contact with our waiter/waitress dining car to optimize glycemic control on at least [...] glycemic control and surveillance. 9. After hours [facility] triage number provided to call with concerns. 10. Sent with labs today for repeat HgA1c and CMP. Family history of congenital heart defect 2020 Overview (03/26/2021): FOB with hypoplastic left heart. 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 Normal echocardiogram with [facility]. Resolved Problems Problem Noted Date Diagnosed Date Resolved Date Dysuria during in third trimester 06/13/2021 04/30/2022 Assessment & Plan (06/13/2021 5:00 PM CDT): Dysuria present intermittently with 1+ urine protein, patient is normotensive. Reports UTI that was treated in the 2nd trimester. [facility] recommendations: 1. Sent with lab requisition to have UA and culture collected at local lab today. 2. Alert OB if worsening symptoms before results. Supervision of normal first 03/26/2021 04/30/2022 Overview (03/26/2021): O Neg; AB: Neg, Immune, Rpr: NR, HIV: NR, Hbsag: NR H/h/p: 13.1 / 39.8 / 401 Elevated hemoglobin A1c 05/22/201603/04 Overview (08/25/2018): May 04, 2016 ([facility] [place], [place]) hemoglobin A1c 6.2% (< 5.7), TSH 2.75 uIU/mL (0.465-4.68), free T4 0.96 ng/dL (0.78-2.19), ALT 24 U/L (9-52), cholesterol 160 mg/dL (200); triglyceride 117 mg/dL (< 150), HDL-cholesterol 45 mg/dL (> 35), LDL-cholesterol 81 mg/dL (< 130) May 22, 2018 - hemoglobin A1c 5.8% ([facility]) Jul, 2018 - elevated hemoglobin A1c at well child health associate visit (results unavailable) Assessment & Plan (08/25/2018 [...] TSH. RTC in 2 weeks to see architect naval, 3 months to see . 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
[2025-07-27 18:01] LABS: Add Urine Microscopic? YES; Glucose Urine UA 3+ (Negative); Leukocyte Esterase Ur Negative LEU/UL (Negative); Nitrate Urine Negative (Negative); Specific Grav Ur 1.020 (1.010-1.020)
[2025-07-27 18:08] LABS: Appearance Urine Cloudy (Clear); Pregnancy On Board Control Positive
--- OUTSIDE RECORDS SUMMARY | 2025-07-27 18:13 | XMS_ITS | Clinical Summary ---
Author Organization [facility] Address [address] [place] [phone] Phone Care Team Providers Care Carton Machine Operator Name Role Phone Unavailable Primary Care Provider [...] HPV VACCINES Completed 04/23/2016, 05/07/2013 Insurance [facility] BLUE ACCESS CHOICE
--- OUTSIDE RECORDS SUMMARY | 2025-07-27 18:14 | XMS_ITS | Clinical Summary ---
Author Organization [facility] [employer] Address [address] [place] [address] Care Team Providers Care Cutter Operator Brick Name Role Phone Christine Peterson MD Primary Care Provider [phone] Source Comments [facility] [employer],non-owned Affiliates and Associated Physician Practices is amultiple site organization consisting of ambulatory clinics and hospital sitesin [place], [place], [place] and [place]. This disclosure is being madepursuant to the Care Everywhere program and may not contain all information available regarding this patient. Last updated 18.[facility] [employer] Allergies No known active allergies Medications * Be aware that medications may not be up to date on this document. Alwaysverify current medications with the patient. [facility] ([facility] Use 5-9 Each once [...] Glucagon (BAQSIMI ONE PACK) 3 MG/DOSE POWD [place] 3 mg into the nose as needed [...] and anxiety without thoughts of self harm. [facility] recommendations: 1. I reviewed the risks [...] in the breast milk. 3. 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 [facility] recommendations: 1. Start magnesium supplement to [...] from birthweights. I advised Brandie that the [employer] recommends delivery [...] sweetened beverages. 3. Close contact with our curtain stitcher to optimize glycemic control on at least [...] glycemic control and surveillance. 9. After hours [facility] triage number provided to call with concerns. 10. Sent with labs today for repeat HgA1c and CMP. Family history of congenital heart defect 2020 Overview (03/26/2021): FOB with hypoplastic left heart. 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 Normal echocardiogram with [facility]. Resolved Problems Problem Noted Date Diagnosed Date Resolved Date Dysuria during in third trimester 06/13/2021 04/30/2022 Assessment & Plan (06/13/2021 5:00 PM CDT): Dysuria present intermittently with 1+ urine protein, patient is normotensive. Reports UTI that was treated in the 2nd trimester. [facility] recommendations: 1. Sent with lab requisition to have UA and culture collected at local lab today. 2. Alert OB if worsening symptoms before results. Supervision of normal first 03/26/2021 04/30/2022 Overview (03/26/2021): O Neg; AB: Neg, Immune, Rpr: NR, HIV: NR, Hbsag: NR H/h/p: 13.1 / 39.8 / 401 Elevated hemoglobin A1c 05/22/201603/04 Overview (08/25/2018): May 04, 2016 ([facility] in [place], [place]) hemoglobin A1c 6.2% (< 5.7), TSH 2.75 uIU/mL (0.465-4.68), free T4 0.96 ng/dL (0.78-2.19), ALT 24 U/L (9-52), cholesterol 160 mg/dL (200); triglyceride 117 mg/dL (< 150), HDL-cholesterol 45 mg/dL (> 35), LDL-cholesterol 81 mg/dL (< 130) May 22, 2018 - hemoglobin A1c 5.8% ([facility]) Jul, 2018 - elevated hemoglobin A1c at well children counselor visit (results unavailable) Assessment & Plan (08/25/2018 [...] TSH. RTC in 2 weeks to see naumkeag operator, 3 months to see . 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
--- OUTSIDE RECORDS SUMMARY | 2025-07-27 18:14 | XMS_ITS | Clinical Summary ---
[facility] Organization [facility] Address [address] [place] [address] Care Team Providers Care Correspondence Renew Clerk Name Role Phone Uriel Walker MD Primary Care Provider [phone] Alisson Chavis SECTION PLOTTER OPERATOR Unavailable [phone] Allergies No known active allergies Medications blood-glucose [...] 09/09/2023 Assessment & Plan (09/09/2023 11:06 AM ACCOUNT MANAGEMENT ASSISTANT): Pain and tenderness on the radial side of bilateral wrists. Instructed to use thumb spica splint at night and continue ibuprofen as needed. Type 2 diabetes mellitus wit h hyperglycemia, without long-term current use of insulin 06/06/2023 Assessment & Plan (08/17/2024 11:12 AM CDT): Ozempic and metformin refilled. Assessment & Plan (09/09/2023 11:17 AM ACCOUNT MANAGEMENT ASSISTANT): Continue checking glucose daily. Increase metformin to [...] 06/06/2023 Assessment & Plan (09/09/2023 10:45 AM ACCOUNT MANAGEMENT ASSISTANT): Improving after physical therapy. Encouraged continuing home [...] today. Would like to have completed at [facility] in [place]. Aware that RN will call for auth & call [facility] to set up testing. Starting [...] today. Would like to have completed at [facility] in [place]. Aware that RN will call for auth & call [facility] to set up testing. Starting [...] Plan (06/26/2020 12:50 PM CDT): 06/26/20 A1C=6.0% FV=088 HDL=44 QQ=678 RKJ=742 TC/HDL=3.8 Copy of results as well as [...] urine in office. Will check labs at [facility]. Assessment & Plan (02/17/2020 6:18 [...] 2 meals/day (school lunch & meal at [employer] nightly when working). Stressed dietary changes. Need [...] to deal with bullying. Paperwork completed. Will peanut picker when she comes to have PPD read and to receive influenza vaccine. Encounter for medical examin [facility] to establish care 02/23/2019 02/16/2020 Assessment [...] healthier, we can set up appointment with aircraft metalsmith/harness cutter. 3. Have an active lifestyle, strive for [...] whatever food is nearby when hungry. Declines aircraft metalsmith. Has seen 2x at [facility]. Will make f/u appt in 1 month. Elevated hemoglobin A1c 05/22/201606/04 Overview (02/23/2019): May 04, 2016 ([facility] in [place], [place]) hemoglobin A1c 6.2% (< 5.7), TSH 2.75 uIU/mL (0.465-4.68), free T4 0.96 ng/dL (0.78-2.19), ALT 24 U/L (9-52), cholesterol 160 mg/dL (200); triglyceride 117 mg/dL (< 150), HDL-cholesterol 45 mg/dL (> 35), LDL-cholesterol 81 mg/dL (< 130) May 22, 2018 - hemoglobin A1c 5.8% ([facility]) Jul, 2018 - elevated hemoglobin A1c at well childcare provider visit (results unavailable) Last Assessment & Plan: [...] Department Care Team Description 06/01/2025 Orders Only [facility] Management [address] [place] [id number] Scanning, Provider 05/12/2025 Orders Only [facility] [place] Health Information Management [address] [place] [address] Scanning, Provider from Last 3 Months Immunizations [...] on file Legal Sex Female 1:53 AM ACCOUNT MANAGEMENT ASSISTANT Gender Identity Female 11/22/2020 12:52 PM ACCOUNT MANAGEMENT ASSISTANT Sexual Orientation Straight 11/22/2020 12 :52 PM ACCOUNT MANAGEMENT ASSISTANT Obstetrics History Last Filed Vital Signs Vital Sign Reading Time Taken Comments Blood Pressure 128/74 01/05/2025 9:33 AM ACCOUNT MANAGEMENT ASSISTANT Pulse 90 01/05/2025 9:33 AM ACCOUNT MANAGEMENT ASSISTANT Temperature 36.4 C (97.5 F) 12/22/2024 9:08 AM ACCOUNT MANAGEMENT ASSISTANT Respiratory Rate 16 01/05/2025 9:33 AM ACCOUNT MANAGEMENT ASSISTANT Oxygen Saturation 98% 01/05/2025 9:33 AM ACCOUNT MANAGEMENT ASSISTANT Inhaled Oxygen Concentration - - Weight 127.5 kg (281 lb 1.6 oz) 024 12:00 PM ACCOUNT MANAGEMENT ASSISTANT Height 165.1 cm (5' 5) 10/11/2024 12:0 0 PM ACCOUNT MANAGEMENT ASSISTANT Body Mass Index 46.78 10/11/2024 12:00 PM ACCOUNT MANAGEMENT ASSISTANT Plan of Treatment Health Maintenance Due Date [...] Routine 10/22/2023 EGFR Routine 10/06/2023 12:19 PM ACCOUNT MANAGEMENT ASSISTANT New onset type 2 diabetes mellitus (HCC) HEMOGLOBIN A1C Routine 10/06/2023 12:19 PM ACCOUNT MANAGEMENT ASSISTANT New onset type 2 diabetes mellitus (HCC) LIPID PANEL Routine 10/06/2023 12:19 PM ACCOUNT MANAGEMENT ASSISTANT Encounter for screening for lipoid disorders ALBUMIN CREATININE RATIO, URINE Routine 10/06/2023 12:19 PM ACCOUNT MANAGEMENT ASSISTANT New onset type 2 diabetes mellitus (HCC) [...] Final Result * eGFR (10/06/2023 12:19 PM ACCOUNT MANAGEMENT ASSISTANT) eGFR 128 mL/min/1. 73 m2 CONNIE ALSTON [...] was last reviewed 2021. Testing performed by: [facility], [address] [place] [address]., [id number] Blood 10/06/2023 12:1 9 PM ACCOUNT MANAGEMENT ASSISTANT 10/06/2023 6:45 PM ACCOUNT MANAGEMENT ASSISTANT Roseann Galvan NP LAB BLOOD ORDERABLES Final Result Performing Organization Address [facility] Co de Phone Number [facility] ([place]) 1 [facility] [email or web address] [address] * Albumin Creatinine Ratio, Urine (10/06/2023 12:19 PM ACCOUNT MANAGEMENT ASSISTANT) Albumin Ur <12.0 mg/L [facility]ERB[facility] ([place]) Comment: Interpretive Data No reference range established. Current interpretive data was last revised 2019. Testing performed by: [facility], [address] [place] [address]., [address] Creatinine Ur 214.2 mg/dL [facility] ([place]) Comment: Interpretive Data No reference range established. Current interpretive data was last revised 2019. Testing performed by: [address] [address] Albumin Creatinine Ratio, Ur <6 1 - 29 mg/g [facility] ([place]) Comment:Testing performed by : [address] [address] Urine 10/06/2023 12:1 9 PM ACCOUNT MANAGEMENT ASSISTANT 10/06/2023 6:05 PM ACCOUNT MANAGEMENT ASSISTANT Roseann Galvan NP LAB URINE ORDERABLES Final Result Performing Organization Address [facility] Co de Phone Number [facility] ([place]) 1 [facility] [email or web address] [address] * (ABNORMAL) Hemoglobin A1c (10/06/2023 12:19 PM ACCOUNT MANAGEMENT ASSISTANT) Hgb A1C 7.5(H) 4.0 - 5.6 % CONNIE ALSTON (LIN) Comment:Testing performed by : [facility], [address] [place] [address]., [address] Estimated Average Glucose 169 mg/dL CONNIE ALSTON (LIN) Comment: The ADA recommends reporting an estimated Average Glucose (eAG) with all Hemoglobin A1c results using the equation derived from a study of 507 normal and diabetic adults. Minority populations were underrepresented and children were not included. (Diabetes Care 31:8792-7105, 2008). The eAG is not equivalent to a fasting glucose. Testing performed by: [facility], [address] [place] [address]., [address] Blood 10/06/2023 12:1 9 PM ACCOUNT MANAGEMENT ASSISTANT 10/06/2023 6:05 PM ACCOUNT MANAGEMENT ASSISTANT Roseann Galvan SECTION PLOTTER OPERATOR LAB BLOOD ORDERABLES Final Result CONNIE ALSTON ([place]) 1 [facility] [place] [address] * (ABNORMAL) Lipid panel (10/06/2023 12:19 PM ACCOUNT MANAGEMENT ASSISTANT) Cholesterol 169 30 - 199 mg/dL CONNIE [...] last revised on 2018. Testing performed by: [facility], [address] [place] [address], [place]., [address] Triglycerides 162(H) <=149 mg/dL CONNIE ALSTON ([place]) [...] last revised on 2018. Testing performed by: [facility], [address] [place] [address]., [address] HDL 31(L) >=40 mg/dL CERETHEL ALSTON ([place]) [...] last revised on 2018. Testing performed by: [facility], [address] [place] [address]., [address] LDL, calculated 106 <=129 mg/dL CONNIE ALSTON [...] last revised on 2018. Testing performed by: [facility], [address] [place] [address]., [address] Non-HDL Cholesterol 138 mg/dL [facility] ([place]) [...] last revised on 2018. Testing performed by: [facility], [address] [place] [address]., [address] Chol/HDL ratio 5 CARLOSNE Faby ALSTON (LIN) Comment:Testing performed by : [facility], [address] [place] [address]., [address] Blood 10/06/2023 12:1 9 PM ACCOUNT MANAGEMENT ASSISTANT 10/06/2023 6:05 PM ACCOUNT MANAGEMENT ASSISTANT Roseann Galvan SECTION PLOTTER OPERATOR LAB BLOOD ORDERABLES Final Result Performing Organization Address City/State/[facility] Co de Phone Number CONNIE ALECIA ([place]) 1 [facility] [place] [address] from Last 3 Months or Most Recently Relevant to Health Maintenance Insurance [facility] Care Teams Correspondence Renew Clerk Relationship Specialty Start Date End Date Uriel Walker MD [address] [place] [address] PCP - General Family Medicine 02/23/19 [place] [address] [address] Nurse Practitioner Sand Blaster 12/01/24
--- OUTSIDE RECORDS SUMMARY | 2025-07-27 18:14 | XMS_ITS | Clinical Summary ---
Author Organization [facility] Address [facility] [place] [address] Care Team Providers Care Home Sales Consultant Name Role Phone Uriel Walker MD Primary Care Provider [phone] Allergies No known active allergies Medications Glucagon [...] often do you attend chur ch or yazidism services? Never 04/26/2022 Do you belong to any clubs o r organizations such as bahai groups, unions, fraternal or athletic groups, or [...] and heating? Not hard at all 04/26/2022 [facility] - Occupational [...] place to sleep or slept in a halfway (including now)? No 04/26/2022 Comments No Sex [...] patient's age to complete this topic Insurance [employer] Care Teams Home Sales Consultant Relationship Specialty Start Date End Date Uriel Walker MD [address] [place] [address] PCP - General INTERNAL MEDICINE 04/26/22
[2025-07-27] MEDS: FLUCONAZOLE 150 MG TABLET PO (18:51)
[2025-07-27 18:52] VITALS: BP 140/69; PULSE 82; RESP 16; TEMP 36.6; O2SAT 99
== END 2025-07-27 18:52 | disposition home or self-care (01) ==
PROVIDERS: Emergency Provider Emergency Medicine; PCP Family Medicine
DX: L30.9 Dermatitis, unspecified (principal); N76.0 Acute vaginitis; E11.9 Type 2 diabetes mellitus without complications; Z87.891 Personal history of nicotine dependence; Z11.3 Encounter for screening for infections with a predominantly sexual mode of transmission
CPT/HCPCS: 81001; 81025; 87491; 87591; 99284; A9270; J7512

== ENCOUNTER 2025-10-05 09:15 | Outpatient (CLI) | payer BC, SELFPAY ==
--- OUTSIDE RECORDS SUMMARY | 2025-10-05 10:20 | XMS_ITS | Clinical Summary ---
Author Organization [facility] Address [address] [place] [phone] Phone Care Team Providers Care Field Map Technician Name Role Phone Unavailable Primary Care [...] 2001 HPV VACCINES Completed 04/23/2016, 05/07/2013 Insurance [facility] BLUE ACCESS CHOICE
--- OUTSIDE RECORDS SUMMARY | 2025-10-05 10:20 | XMS_ITS | Clinical Summary ---
Author Organization [facility] Building [address] Address [address] [place] [address] Care Team Providers Care Research And Development Chemist Name Role Phone Uriel Walker MD Primary Care Provider [phone] Alisson Chavis DELIVERY TABLE OPERATOR Unavailable [phone] Allergies Active Allergy Reactions Criticality Noted Date Comments Metformin Diarrhea Low 08/26/2025 Medications celecoxib (CeleBREX) 200 mg capsuleIndicat ions:Osteoarth ritis Take 1 capsule (200 mg total) by mouth 2 (two) times a day 180 capsule 3 5 08/26/20 26 Active blood glucose diagnostic (glucose blood) stripIndicatio ns:Type 2 diabetes mellitus with hyperglycemia, without long-term current use of insulin (HCC) 1 each by other route 2 (two) times a day 200 each 3 5 08/26/20 26 Active lancets miscIndication s:Type 2 diabetes mellitus with hyperglycemia, without long-term current use of insulin (HCC) 1 each by other route 2 (two) times a day 200 each 3 5 Active blood-glucose meter miscIndication s:Type 2 diabetes mellitus with hyperglycemia, without long-term current use of insulin (HCC) Use daily or as directed for monitoring of diabetes. 1 each 5 Active glipiZIDE (GLUCOTROL) 10 mg tabletIndicati ons:type 2 diabetes mellitus Take 1 tablet (10 mg total) by mouth 2 (two) times a day before breakfast and lunch 180 tablet 3 5 09/23/20 26 Active glipiZIDE (GLUCOTROL) 5 mg tabletIndicati ons:type 2 diabetes mellitus Take 1 tablet (5 mg total) by mouth daily 90 tablet 3 5 09/23/20 25 Discontinu ed(Reorder ) Active Problems Problem Noted Date Diagnosed Date Lumbar radiculopathy 12/01/2024 Assessment & Plan (08/26/2025 9:11 AM CDT): See above Orders: celecoxib (CeleBREX) 200 mg capsule; Take 1 capsule (200 mg total) by mouth 2 (two) times a day Ambulatory referral to Neurosurgery; Future Degeneration of intervertebr al disc of lumbar region with discogenic back pain and lower extremity pain 12/01/2024 Assessment & Plan (08/26/2025 9:11 AM CDT): Having increased back pain that is causing fatigue and not wanting to do anything. We will refer to Neurosurgery due to having already seen pain management in the past. We will start on Celebrex 200 mg b.i.d.. We will continue to monitor. Orders: celecoxib (CeleBREX) 200 mg capsule; Take 1 capsule (200 mg total) by mouth 2 (two) times a day Ambulatory referral to Neurosurgery; Future Sacroiliitis 10/11/2024 Sciatica without lumbago, right 08/17/2024 Assessment & Plan (08/17/2024 11:13 AM CDT): Medrol dose pack ordered and pain management referral placed. Will continue with PT and monitoring. Tendinitis, de Quervain's 09/09/2023 Assessment & Plan (09/09/2023 11:06 AM PLANT FLOOR AUTOMATION MANAGER): Pain and tenderness on the radial side of bilateral wrists. Instructed to use thumb spica splint at night and continue ibuprofen as needed. Type 2 diabetes mellitus wit h hyperglycemia, without long-term current use of insulin 06/06/2023 Assessment & Plan (08/26/2025 9:11 AM CDT): Intolerant to metformin. We will get updated labs. We will start on glipizide 5 mg and diabetes supplies. We will hold off on starting G LP 1 injections due to wanting to get . We will continue to monitor. Orders: Hemoglobin A1c; Future Comprehensive metabolic panel; Future Albumin Creatinine Ratio, Urine; Future lancets misc; 1 each by other route 2 (two) times a day blood-glucose meter misc; Use daily or as directed for monitoring of diabetes. blood glucose diagnostic (glucose blood) strip; 1 each by other route 2 (two) times a day glipiZIDE (GLUCOTROL) 5 mg tablet; Take 1 tablet (5 mg total) by mouth daily Assessment & Plan (08/17/2024 11:12 AM CDT): Ozempic and metformin refilled. Assessment & Plan (09/09/2023 11:17 AM PLANT FLOOR AUTOMATION MANAGER): Continue checking glucose daily. Increase metformin to [...] 06/06/2023 Assessment & Plan (09/09/2023 10:45 AM PLANT FLOOR AUTOMATION MANAGER): Improving after physical therapy. Encouraged continuing home [...] today. Would like to have completed at [facility] in [place]. Aware that RN will call for auth & call [facility] to set up testing. Starting new [...] RN will call for auth & call [facility] to set up testing. Starting new job tomorrow & has to be there at 9am. Aware that I am unable to influence times available for testing. Aware that labs 1st then CT. Will talk w/her re: labs once rec'd. Encounter for screening for lipoid disorders Assessment & Plan (08/26/2025 9:11 AM CDT): We will get updated lipid panel. We will continue to monitor. Orders: Lipid panel; Future Assessment & Plan (06/06/2023 5:34 PM CDT): Labs ordered today. Assessment & Plan (06/26/2020 12:50 PM CDT): 06/26/20 A1C=6.0% FB=435 HDL=44 SX=075 MYR=796 TC/HDL=3.8 Copy of results as well as [...] of 50.0-59.9, adult 02/02 Assessment & Plan (08/26/2025 9:11 AM CDT): See above Assessment & Plan (06/06/2023 5:34 PM CDT): [...] 2 meals/day (school lunch & meal at [employer] nightly when working). Stressed dietary changes. Need [...] to deal with bullying. Paperwork completed. 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 [facility] 02/16/2020 Assessment & [...] healthier, we can set up appointment with imaging services director/spa concierge. 3. Have an active lifestyle, strive for [...] whatever food is nearby when hungry. Declines imaging services director. Has seen 2x at [facility]. Will make f/u appt in 1 month. Elevated hemoglobin A1c 05/22/201606/04 Overview (02/23/2019): May 04, 2016 ([facility] in [place], [place]) hemoglobin A1c 6.2% (< 5.7), TSH 2.75 uIU/mL (0.465-4.68), free T4 0.96 ng/dL (0.78-2.19), ALT 24 U/L (9-52), cholesterol 160 mg/dL (200); triglyceride 117 mg/dL (< 150), HDL-cholesterol 45 mg/dL (> 35), LDL-cholesterol 81 mg/dL (< 130) May 22, 2018 - hemoglobin A1c 5.8% ([facility]) Jul, 2018 - elevated hemoglobin A1c at well childcare aide visit (results unavailable) Last Assessment & Plan: [...] Encounters Date Type Department Care Team Description 09/27/2025 Telephone [facility] [address] [facility] [address] [place] [address] Linette Cottrell NP 09/23/2025 1:30 PM PLANT FLOOR AUTOMATION MANAGER Office Visit [facility] [address] [facility] [address] [place] [address] Linette Cottrell NP Lumbar radiculopathy (Primary Dx); Carpal tunnel syndrome of right wrist; Low back pain, unspecified back pain laterality, unspecified chronicity, unspecified whether sciatica present 09/23/2025 1:18 PM PLANT FLOOR AUTOMATION MANAGER - 09/23/2025 11:59 PM PLANT FLOOR AUTOMATION MANAGER Hospital Encounter [facility] [id number] [id number] Low back pain, unspecified back pain laterality, unspecified chronicity, unspecified whether sciatica present Discharge Disposition: Discharge to home or self care 09/23/2025 12:35 PM PLANT FLOOR AUTOMATION MANAGER Lab [facility] [id number] [place] [address] Annual physical exam; Type 2 diabetes mellitus with hyperglycemia, without long-term current use of insulin (HCC); Encounter for screening for lipoid disorders 09/23/2025 Results [facility] [address] [phone] Gerri Trevino NP CBC with auto differential, Comprehensive metabolic panel, Hemoglobin A1c, Additional followed-up results: 3 09/23/2025 Orders Only [facility] [address] [place] [address] [place] [address] Linette Cottrell NP Low back pain, unspecified back pain laterality, unspecified chronicity, unspecified whether sciatica present (Primary Dx) 08/31/2025 Telephone [facility] [address] [place] [address] [address] [place] [address] Ashwini Zaidi 08/29/2025 Telephone [facility] [address] [phone] Uriel Walker MD Med Refill 08/26/2025 9:30 AM CDT Office Visit [facility] [address] [phone] Gerri Trevino NP Annual physical exam (Primary Dx); Type 2 diabetes mellitus with hyperglycemia, without long-term current use of insulin (HCC); Degeneration of intervertebral disc of lumbar region with discogenic back pain and lower extremity pain; Lumbar radiculopathy; Encounter for screening for lipoid disorders; Class 3 severe obesity with serious comorbidity and body mass index (BMI) of 45.0 to 49.9 in adult, unspecified obesity type; Morbid obesity with BMI of 45.0-49.9, adult ([facility]) 08/26/2025 Telephone [facility] [address] [place] [address] Uriel Walker MD 08/26/2025 Telephone [facility] [address] [place] [address] Gerri Trevino NP from Last 3 Months Immunizations Immunization Administration Dates Next Due DTaP 02/06/2007, 3,05/23/2002,03/16,01/11/2002 HPV, Quadrivalent 05/07/2013 HPV9 04/23/2016 Hep A, Ped Unspecified 02/06/2007,12/16/2005 Hep B, Adolescent or Pediatric 08/30/2002,2001,2001 HiB 05/26/2003,03/16/2002,01/11/2002 Hib (PRP-OMP) 05/23/2002 IPV 02/06/2007, 3,03/16/2002,01/11 Influenza, Quadrivalent, Spl it, Preservative Free, Intramuscular 07/15/2019 Influenza, Unspecified 08/26/2025(Deferr ed: Patient Refused),08/17/2024(Deferred: Patient Refused),07/04/2024(Deferred: Patient Refused),09/09/2023(Deferred: Patient Refused),07/04/2023(Deferred: Patient Refused),08/03/2022(Deferred: Patient [...] adult (HCC ) Anxiety Diabetes mellitus Hypertension Miscarriage 2024 Family History Medical History Relation Name Comments [...] points, staff should administer the PHQ-9) 0 08/26/2025 Comments No Sex and Gender Information Value Date Recorded Sex Assigned at Not on file Legal Sex Female 1:53 AM PLANT FLOOR AUTOMATION MANAGER Gender Identity Female 11/22/2020 12:52 PM PLANT FLOOR AUTOMATION MANAGER Sexual Orientation Straight 11/22/2020 12 :52 PM PLANT FLOOR AUTOMATION MANAGER Last Filed Vital Signs Vital Sign Reading Time Taken Comments Blood Pressure 144/99 09/23/2025 1:38 PM PLANT FLOOR AUTOMATION MANAGER Pulse 81 09/23/2025 1:38 PM PLANT FLOOR AUTOMATION MANAGER Temperature 36.9 C (98.4 F) 09/23/2025 1:38 PM PLANT FLOOR AUTOMATION MANAGER Respiratory Rate 16 09/23/2025 1:38 PM PLANT FLOOR AUTOMATION MANAGER Oxygen Saturation 98% 09/23/2025 1:38 PM PLANT FLOOR AUTOMATION MANAGER Inhaled Oxygen Concentration - - Weight 131.7 kg (290 lb 6.4 oz) 09/23/2025 1:38 PM PLANT FLOOR AUTOMATION MANAGER Height 165.1 cm (5' 5) 08/26/2025 8:54 AM CDT Body Mass Index 48.33 08/26/2025 8:54 AM CDT Plan of Treatment Health Maintenance Due Date Last Done Comments Cervical Cancer Screening 2001 Chlamydia and Gonorrhea (GC/ CT) Screening 2001 Hepatitis C Screening 2001 Pneumococcal vaccine <65 (1 of 1 - PPSV23, PCV20, or PCV21) 2007 11/15/2002, 05/28/2002, 03/16/2002, Additional history exists Meningococcal B Vaccine (2 o f 2 - Bexsero SCDM 2-dose series) 01/13/2020 07/15/2019 Foot Exam 09/09/2024 09/09/2023 Albumin Creatinine Ratio, Urine 10/06/2024 , 02/18/2020 Dilated Eye Exam 10/22/2024 10/22/2023 Influenza Vaccine (#1) 2025 07/15/2019 Hemoglobin A1C 03/23/2026 09/23/2025, 12/0 02/2023, 09/09/2023, Additional history exists Depression Screening 08/26/2026 08/26/2025, 08/17/2024, 05/07/2024, Additional history exists Regular Well Visit/Exam 18-64 08/26/2026 08/26/2025 Lipid Panel 09/23/2026 09/23/2025, 12/0 02/2023, 09/09/2023, Additional history exists eGFR 09/23/2026 09/23/2025, 12/0 02/2023, 12/07/2021, Additional history exists DTaP/Tdap/Td Vaccine (9 - Td or Tdap) 05/25/2032 05/25/2022, 08/03/2021, 05/07/2013, Additional history exists Hepatitis B Screening Completed 08/30/2002 , 2001, 2001 Varicella Vaccines Completed 02/06/2007, 02/14/2003 HPV Vaccines Completed 04/23/2016, 05/07/2013 Procedures Procedure Name Priority Date/Time Associated Diagnosis Comments XR SPINE LUMBAR 2 OR 3 VIEWS Schedule Routine, Read Routine (OP Routine) 09/23/2025 1:26 PM PLANT FLOOR AUTOMATION MANAGER Low back pain, unspecified back pain laterality, unspecified chronicity, unspecified whether sciatica present EGFR Routine 09/23/2025 12:51 PM PLANT FLOOR AUTOMATION MANAGER Annual physical exam Type 2 diabetes mellitus with hyperglycemia, without long-term current use of insulin (HCC) DIFFERENTIAL AUTO Routine 09/23/2025 12: 51 PM PLANT FLOOR AUTOMATION MANAGER Annual physical exam LIPID PANEL Routine 09/23/2025 12:51 PM PLANT FLOOR AUTOMATION MANAGER Annual physical exam Encounter for screening for lipoid disorders COMPREHENSIVE METABOLIC PANEL Routine 09/23/2025 12:51 PM PLANT FLOOR AUTOMATION MANAGER Annual physical exam Type 2 diabetes mellitus with hyperglycemia, without long-term current use of insulin (HCC) CBC WITH AUTO DIFFERENTIAL Routine 09/23/2025 12:51 PM PLANT FLOOR AUTOMATION MANAGER Annual physical exam HEMOGLOBIN A1C Routine 09/23/2025 12:50 PM PLANT FLOOR AUTOMATION MANAGER Annual physical exam Type 2 diabetes mellitus with hyperglycemia, without long-term current use of insulin (HCC) SCAN - LABS 07/27/2025 SCAN - LABS 07/19/2025 DIABETES EYE EXAM Routine 10/22/2023 ALBUMIN CREATININE RATIO, URINE Routine 10/06/2023 12:19 PM PLANT FLOOR AUTOMATION MANAGER New onset type 2 diabetes mellitus (HCC) from Last 3 Months or Most Recently Relevant to Health Maintenance Results * XR Spine Lumbar 2 or 3 Views (09/23/2025 1:26 PM PLANT FLOOR AUTOMATION MANAGER) Anatomical Region Laterality Modality Spine N/A Computed Radiogr aphy 09/23/2025 3:09 PM PLANT FLOOR AUTOMATION MANAGER Impressions 09/23/2025 3:09 PM PLANT FLOOR AUTOMATION MANAGER No acute fracture. Mild multilevel endplate changes. Mild intervertebral disc space narrowing at L1-L2. Mild spondylosis at L4-L5. There is bilateral L5 spondylolysis with grade 1 anterolisthesis of L5 on S1 measuring 5 mm, increased from 2 mm on prior examination from 2019. Electronically signed by: David Duarte II, D.O. Narrative 09/23/2025 3:09 PM PLANT FLOOR AUTOMATION MANAGER EXAM: XR SPINE LUMBAR 2 OR 3 VIEWS DATE: 09/23/2025 1:20 PM CLINICAL HISTORY: LOW BACK PAIN COMPARISON: December 22, 2024 Procedure Note David Duarte II, - 09/23/2025 EXAM: XR SPINE LUMBAR 2 OR 3 VIEWS DATE: 09/23/2025 1:20 PM CLINICAL HISTORY: LOW BACK PAIN COMPARISON: December 22, 2024 IMPRESSION: No acute fracture. Mild multilevel endplate changes. Mild intervertebral disc space narrowing at L1-L2. Mild spondylosis at L4-L5. There is bilateral L5 spondylolysis with grade 1 anterolisthesis of L5 on S1 measuring 5 mm, increased from 2 mm on prior examination from 2019. Electronically signed by: David Duarte II, D.O. Linette Cottrell DELIVERY TABLE OPERATOR IMG XR PROCEDURES Final Result * eGFR (09/23/2025 12:51 PM PLANT FLOOR AUTOMATION MANAGER) eGFR >90 >=60 mL/min/1. 73 m2 Comment: Interpretive Data Reference Interval Normal >/= [...] interpretive data was last reviewed 2021. Blood 09/23/2025 12:5 1 PM PLANT FLOOR AUTOMATION MANAGER 09/23/2025 12:51 PM PLANT FLOOR AUTOMATION MANAGER Gerri Trevino NP LAB BLOOD ORDERABLES Final Re sult [facility] [address] Department [place] [address] * Differential, auto (09/23/2025 12:51 PM PLANT FLOOR AUTOMATION MANAGER) Neutrophil abs 5.23 1.50 - 6.50 K/cumm Imm gran abs 0.01 0.00 - 0.10 K/cumm [facility] Lymphocyte abs 1.38 0.80 - 3.30 K/cumm [facility] Monocyte abs 0.39 0.20 - 0.80 K/cumm [facility] Eosinophil abs 0.15 0.00 - 0.50 K/cumm [facility] Basophil abs 0.02 0.00 - 0.10 K/cumm [facility] Neutrophil pct 72.9 % [facility] Comment: Interpretive Data Percent cell count reference ranges are not reported, since discordance with absolute values may lead to misinterpretation of CBC data. Current Interpretive Data was last revised on 2018. Imm gran pct 0.1 % [facility] Comment: Interpretive Data Percent cell count reference ranges are not reported, since discordance with absolute values may lead to misinterpretation of CBC data. Current Interpretive Data was last revised on 2018. Lymphocyte pct 19.2 % [facility] Comment: Interpretive Data Percent cell count reference ranges are not reported, since discordance with absolute values may lead to misinterpretation of CBC data. Current Interpretive Data was last revised on 2018. Monocyte pct 5.4 % [facility] Comment: Interpretive Data Percent cell count reference ranges are not reported, since discordance with absolute values may lead to misinterpretation of CBC data. Current Interpretive Data was last revised on 2018. Eosinophil pct 2.1 % [facility] Comment: Interpretive Data Percent cell count reference ranges are not reported, since discordance with absolute values may lead to misinterpretation of CBC data. Current Interpretive Data was last revised on 2018. Basophil pct 0.3 % [facility] Comment: Interpretive Data Percent cell count reference ranges are not reported, since discordance with absolute values may lead to misinterpretation of CBC data. Current Interpretive Data was last revised on 2018. Blood 09/23/2025 12:5 1 PM PLANT FLOOR AUTOMATION MANAGER 09/23/2025 12:51 PM PLANT FLOOR AUTOMATION MANAGER Gerri Trevino DELIVERY TABLE OPERATOR LAB BLOOD ORDERABLES Final Re sult Performing Organization Address City/[facility]/ZIP Co de Phone Number [place]IE [place] [address] [place] [address] * (ABNORMAL) CBC with auto differential (09/23/2025 12:51 PM PLANT FLOOR AUTOMATION MANAGER) Pathologist [facility] WBC 7.18 3.80 - 9.90 K/cumm Hgb 13.3 11.9 - 15.5 g/dL [facility] Hct 40.8 35.6 - 45.5 % [facility] Plt 324 150 - 400 K/cumm [facility] MPV 8.9(L) 9.1 - 12.3 fL [facility] RBC 5.00 3.90 - 5.20 M/cumm [facility] MCV 81.6 81.3 - 96.4 fL [facility] MCH 26.6(L) 27.1 - 33.3 pg [facility] MCHC 32.6 32.3 - 35.7 g/dL [facility] RDW CV 13.0 11.1 - 14.9 % [facility] RDW SD 38.0 35.7 - 48.1 fL [facility] NRBC abs 0.00 0.00 - 0.01 K/cumm [facility] Blood 09/23/2025 12:5 1 PM PLANT FLOOR AUTOMATION MANAGER 09/23/2025 12:51 PM PLANT FLOOR AUTOMATION MANAGER Gerri Trevino DELIVERY TABLE OPERATOR LAB BLOOD ORDERABLES Final Re sult Performing Organization Address City/[facility]/ZIP Co de Phone Number [place] [address] [address] [place] [address] * (ABNORMAL) Lipid panel (09/23/2025 12:51 PM PLANT FLOOR AUTOMATION MANAGER) Cholesterol 164 30 - 199 mg/dL Comment: Interpretive Data Ages < or = [...] Data was last revised on 2018. Triglycerides 185(H) <=149 mg/dL [facility] Comment: Interpretive Data Ages < or = [...] Data was last revised on 2018. HDL 33(L) >=40 mg/dL [facility] Comment: Interpretive Data Ages < or = [...] was last revised on 2018. LDL, calculated 99 <=129 mg/dL [facility] Comment: Interpretive Data Ages < or = 19 years Acceptable: <110 mg/dL Borderline high: 110-129 mg/dL High: >or= 130 mg/dL Ages > or = 20 years Optimal: <100 mg/dL Near optimal: 100-129 mg/dL Borderline high: 130-159 mg/dL High: >160 mg/dL Calculated using the Ronnie LDL-C estimating equation. This equation was implemented on 2024. Prior to this date LDL-C was estimated using the Friedewald equation. Literature References: 1. Expert Panel on Integrated Guidelines for Cardiovascular Health and Risk Reduction in Children and Adolescents. Pediatrics 2011;128:S213 2. NCEP Expert Panel. Circulation 2004;110:227 3. Ronnie Benavidez et al. JOE Cardiol. 2020 March 03;5(5):540-548. doi: 10.1001/jamacardio.2020.0013 Current Interpretive Data was last revised on 2024. Non-HDL Cholesterol 131 mg/dL [facility] Comment: Interpretive Data Ages < or = [...] last revised on 2018. Chol/HDL ratio 5 [facility] Blood 09/23/2025 12:5 1 PM PLANT FLOOR AUTOMATION MANAGER 09/23/2025 12:51 PM PLANT FLOOR AUTOMATION MANAGER us Gerri Trevino NP LAB BLOOD ORDERABLES Final Re sult [place] [address] [address] Department [place] [address] * (ABNORMAL) Comprehensive metabolic panel (09/23/2025 12:51 PM PLANT FLOOR AUTOMATION MANAGER) Sodium 135 135 - 145 mmol/L Potassium, pl 3.8 3.3 - 4.9 mmol/L [facility] Chloride 99 97 - 110 mmol/L [facility] CO2 24 22 - 32 mmol/L [facility] Anion gap 12 2 - 15 mmol/L [facility] BUN 8 6 - 25 mg/dL [facility] Creatinine 0.53(L) 0.60 - 1.10 mg/dL [facility] Glucose 367(H) 70 - 199 mg/dL [facility] Comment: Interpretive Data Fasting glucose >/= 126 mg/dl is diagnostic for diabetes. Fasting is defined as no caloric intake [...] classification and Diagnosis of Diabetes Diabetes Care 202; 46: S19-S40. Current interpretive data was last revised 2022. Calcium 8.9 8.5 - 10.3 mg/dL [facility] Bilirubin, total 0.4 0.1 - 1.2 mg/dL [facility] Protein, pl 6.9 6.5 - 8.5 g/dL [facility] Albumin 3.8 3.5 - 5.0 g/dL [facility] Alk phos 94 40 - 130 Units/L [facility] ALT 55(H) 7 - 45 Units/L [facility] AST 77(H) 10 - 45 Units/L [facility] Blood 09/23/2025 12:5 1 PM PLANT FLOOR AUTOMATION MANAGER 09/23/2025 12:51 PM PLANT FLOOR AUTOMATION MANAGER Gerri Trevino DELIVERY TABLE OPERATOR LAB BLOOD ORDERABLES Final Re sult [facility] [address] Department [place] [address] * (ABNORMAL) Hemoglobin A1c (09/23/2025 12:50 PM PLANT FLOOR AUTOMATION MANAGER) Hgb A1C 9.9(H) 4.0 - 5.6 % Estimated Average Glucose 237 mg/dL [facility] Comment: The ADA recommends reporting an estimated Average Glucose (eAG) with all Hemoglobin A1c results using the equation derived from a study of 507 normal and diabetic adults. Minority populations were underrepresented and children were not included. (Diabetes Care 31:6603-2695, 2008). The eAG is not equivalent to a fasting glucose. Blood 09/23/2025 12:5 0 PM PLANT FLOOR AUTOMATION MANAGER 09/23/2025 12:50 PM PLANT FLOOR AUTOMATION MANAGER Gerri Trevino DELIVERY TABLE OPERATOR LAB BLOOD ORDERABLES Final Re sult [facility] [address] [facility] Department [place] [address] * SCAN - LABS (07/27/2025) Provider Scanning Edited Result - Final * SCAN - LABS (07/19/2025) Provider Scanning Final Result * DIABETES EYE EXAM (10/22/2023) Pathologist [facility] SCRIBED DIABETIC DILATED EYE EXAM Normal Historical Provider MD HEALTH MAINTENANCE Final Result * Albumin Creatinine Ratio, Urine (10/06/2023 12:19 PM PLANT FLOOR AUTOMATION MANAGER) Albumin Ur <12.0 mg/L [facility] ([place]) Comment: Interpretive Data No reference range established. Current interpretive data was last revised 2019. Testing performed by: [address] [address] Creatinine Ur 214.2 mg/dL [facility] ([place]) Comment: Interpretive Data No reference range established. Current interpretive data was last revised 2019. Testing performed by: [address] [address] Albumin Creatinine Ratio, Ur <6 1 - 29 mg/g [facility] ([place]) Comment:Testing performed by : [address] [address] Urine 10/06/2023 12:1 9 PM PLANT FLOOR AUTOMATION MANAGER 10/06/2023 6:05 PM PLANT FLOOR AUTOMATION MANAGER Roseann Galvan DELIVERY TABLE OPERATOR LAB URINE ORDERABLES Final Result [facility] ([place]) [facility] Department [place] [address] from Last 3 Months or Most Recently Relevant to Health Maintenance Insurance [employer] BL[employer] [place] [employer] [place] [employer] Care Teams Research And Development Chemist Relationship Specialty Start Date End Date Uriel Walker MD [address] [place] [address] PCP - General Family Medicine 02/23/19 [place] [address] [address] Nurse Practitioner Sole Rougher 12/01/24
--- OUTSIDE RECORDS SUMMARY | 2025-10-05 10:20 | XMS_ITS | Clinical Summary ---
Author Organization [facility] Address [address] [place] [address] Care Team Providers Care Stock Order Lister Name Role Phone Christine Peterson MD Primary Care Provider [phone] Source Comments [facility],non-owned Affiliates and Associated Physician Practices is amultiple site organization consisting of ambulatory clinics and hospital sitesin [place], [place], [place] and [place]. This disclosure is being madepursuant to the Care Everywhere program and may not contain all information available regarding this patient. Last updated 18.[facility] Allergies No known active allergies Medications * Be aware that medications may not be up to date on this document. Alwaysverify current medications with the patient. Lancets (MICROLET) [facility] Use 5-9 Each once daily Use to [...] Glucagon (BAQSIMI ONE PACK) 3 MG/DOSE POWD [place] 3 mg into the nose as needed [...] and anxiety without thoughts of self harm. [facility] recommendations: 1. I reviewed the risks [...] in the breast milk. 3. 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 [facility] recommendations: 1. Start magnesium supplement to [...] from birthweights. I advised Brandie that the [employer] recommends delivery [...] sweetened beverages. 3. Close contact with our souvenir and novelty maker to optimize glycemic control on at least [...] of hypoplastic left heart. Normal echocardiogram with [facility]. Resolved Problems Problem Noted Date Diagnosed Date Resolved Date Dysuria during in third trimester 06/13/2021 04/30/2022 Assessment & Plan (06/13/2021 5:00 PM CDT): Dysuria present intermittently with 1+ urine protein, patient is normotensive. Reports UTI that was treated in the 2nd trimester. [facility] recommendations: 1. Sent with lab requisition to have UA and culture collected at local lab today. 2. Alert OB if worsening symptoms before results. Supervision of normal first 03/26/2021 04/30/2022 Overview (03/26/2021): O Neg; AB: Neg, Immune, Rpr: NR, HIV: NR, Hbsag: NR H/h/p: 13.1 / 39.8 / 401 Elevated hemoglobin A1c 05/22/201603/04 Overview (08/25/2018): May 04, 2016 ([facility] in [place], [place]) hemoglobin A1c 6.2% (< 5.7), TSH 2.75 uIU/mL (0.465-4.68), free T4 0.96 ng/dL (0.78-2.19), ALT 24 U/L (9-52), cholesterol 160 mg/dL (200); triglyceride 117 mg/dL (< 150), HDL-cholesterol 45 mg/dL (> 35), LDL-cholesterol 81 mg/dL (< 130) May 22, 2018 - hemoglobin A1c 5.8% ([facility]) Jul, 2018 - elevated hemoglobin A1c at well child care specialist visit (results unavailable) Assessment & Plan (08/25/2018 [...] TSH. 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
--- OUTSIDE RECORDS SUMMARY | 2025-10-05 10:20 | XMS_ITS | Clinical Summary ---
Author Organization [facility] Address [facility] [place] [address] Care Team Providers Care Residential Air Sealing Technician Name Role Phone Uriel Walker MD Primary Care Provider [phone] Allergies No known active allergies Medications Glucagon [...] No 04/26/2022 Social Connection and Isolation Panel Answer Date Recorded In a typical week, how many times do you talk on the phone with family, friends, or neighbors? Once a week 04/26/20 How often do you get togethe r with friends or relatives? Once a week 04/26/2022 How often do you attend chur or pentecostalism services? Never 04/26/2022 Do you belong to any clubs o r organizations such as congregational groups, unions, fraternal or athletic groups, or [...] and heating? Not hard at all 04/26/2022 [facility] - Occupational [...] place to sleep or slept in a custodial (including now)? No 04/26/2022 Comments No Sex [...] 2-dose series) 01/13/2020 07/15/2019 COVID-19 Vaccine ( season) 2025 Influenza Adult (#1) 2025 07/15/2019 DTaP, Tdap and Td Vaccines (9 [...] 04/23/2016, 05/07/2013 Meningococcal Vaccine Completed 06/10/2018, 013 Hepatitis A Vaccines Aged Out No long er eligible based on patient's age to complete this topic RSV Immunizations Under 20 Months Aged Out No longer eligible based on patient's age to complete this topic Insurance [facility] Care Teams Residential Air Sealing Technician Relationship Specialty Start Date End Date Uriel aWlker MD [address] [place] [address] PCP - General INTERNAL MEDICINE 04/26/22
--- OUTSIDE RECORDS SUMMARY | 2025-10-05 10:20 | XMS_ITS | Encounter Summary ---
Author Organization [facility] Address [address] [place] [id number] Care Team Providers Care Territory Sales Professional Name Role Phone Uriel Walker MD Primary Care Provider [phone] Alisson Chavis SALES AND PRODUCTION MANAGER Unavailable [phone] Encounter Details Date Type Department Care Team (Late st Contact Info) Description 09/23/2025 Results Follow-Up [facility] [address] [address] Gerri Trevino NP [address] [place] [address] CBC with auto differential, Comprehensive metabolic panel, Hemoglobin A1c, Additional followed-up results: 3 Social History Tobacco Use Types Packs/Day Years [...] on file Legal Sex Female 1:53 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 Gender Identity Female 11/22/2020 12:52 PM QUALITY ASSURANCE TESTER Sexual Orientation Straight 11/22/2020 12 :52 PM QUALITY ASSURANCE TESTER documented as of this encounter Functional Status * Merchant Fall Risk Question Answer Date of Assessment Author History of Falling 0 09/23/2025 1:00 PM Gerardo Teran RN Secondary Diagnosis 15 09/23/2025 1:00 PM CS Gerardo Jerome RN Ambulatory Aids 0 09/23/2025 1:00 PM Gerardo Walker RN Intravenous Therapy/Heparin/Saline Lock 0 09/23/2025 1:00 PM Cici Teran RN Gait/Transferring 0 09/23/2025 1:00 PM Gerrado Teran RN Mental Status 0 09/23/2025 1:[address], RN Merchant Fall Risk Score (Score >= 45 places fall precaution order) 15 09/23/2025 1:00 PM Gerardo Teran RN Prior Fall Event (Autopopulated from EMR) None found 09/23/2025 1:00 PM Maite Teran RN * BP Location Answer Date of Assessment Author Left arm 09/23/2025 1:38 PM Cici Teran RN * BP Location Answer Date of Assessment Author Left arm 09/23/2025 1:38 PM Cici Teran RN documented as of this encounter Ordered Prescriptions Prescription Sig Dispense Quantity Refills Last Filled Start Date End Date glipiZIDE (GLUCOTROL) 10 mg tabletIndications: type 2 diabetes mellitus Take 1 tablet (10 mg total) by mouth 2 (two) times a day before breakfast and lunch 180 tablet 3 09/23/2025 6 documented in this encounter Miscellaneous Notes * Telephone Encounter - Lotus Bradley - 10/03/2025 12:13 PM CST Faxed orders to number below Patient notified. ITY ASSURANCE TESTER * Telephone Encounter - Ingrid Fuchs Jose - 10/03/2025 10:44 AM CST Call Back Caller???s Concern: Please fax repeat lab orders to [facility] at fax # [phone]. Thank you. Does message need to be routed? Yes-Action Needed ITY ASSURANCE TESTER documented in this encounter Plan of Treatment Scheduled Orders Name Type Priority Associated Diagnoses Orde r Schedule Hepatic function panel Lab Routine Elevated LFTs Expected: 10/07/2025, Expires: 09/23/2026 documented as of this encounter Visit Diagnoses Diagnosis Elevated LFTs- Primary Other abnormal blood chemistry Type 2 diabetes mellitus with hyperglycemia, without long-term current use of insulin (HCC) documented in this encounter Discontinued Medications Medication Sig Discontinue Reason Start Date End Da te glipiZIDE (GLUCOTROL) 5 mg tabletIndications:type 2 diabetes mellitus Take 1 tablet (5 mg total) by mouth daily Reorder 08/26/2025 09/23/2025 documented as of this encounter Care Teams Territory Sales Professional Relationship Specialty Start Date End Date Uriel Walker MD [address] [place] [address] PCP - General Family Medicine 02/23/19 [place] [id number] [address] Nurse Practitioner Spot Checker 12/01/24 documented as of this encounter
[2025-10-05 10:29] LABS: Alanine Aminotransferase 99 U/L (6-35); Albumin Level 4.4 g/dL (3.5-5.1); Alkaline Phosphatase 88 U/L (38-126); Aspartate Amino Transferase 114 U/L (14-36); Bilirubin,Total 0.7 mg/dL (0.2-1.3); Total Protein 7.3 g/dL (6.3-8.2)
== END 2025-10-05 09:16 | disposition home or self-care (01) ==
PROVIDERS: PCP Family Medicine
DX: R79.89 Other specified abnormal findings of blood chemistry (principal)
CPT/HCPCS: 36415; 80076

== ENCOUNTER 2025-10-11 09:03 | Outpatient (CLI) | payer BC, MEDICAID, SELFPAY ==
--- NOTE | ~2025-10-11 | US_ITS ---
ULTRASOUND ABDOMEN LIMITED (RIGHT UPPER QUADRANT) Clinical History: elevated LFTs Comparison: CT abdomen pelvis 06/01/2025 Technique: Right upper quadrant sonography Findings: Liver: Enlarged. Echogenic. No intrahepatic biliary ductal dilatation. Normal hepatopedal flow main portal vein. Common Duct: Normal caliber. 4 mm. Gallbladder: No stones. No wall thickening. No pericholecystic fluid. Pancreas: Unremarkable. IMPRESSION: 1. No acute findings. 2. Hepatomegaly, with steatosis. Reviewed, dictated and finalized at location R. [facility]
== END 2025-10-11 09:04 | disposition home or self-care (01) ==
LOC: MICIMG 09:04
PROVIDERS: PCP Family Medicine; Visit Provider Family Medicine
DX: K76.0 Fatty (change of) liver, not elsewhere classified (principal); R16.0 Hepatomegaly, not elsewhere classified; R79.89 Other specified abnormal findings of blood chemistry
CPT/HCPCS: 76705

== ENCOUNTER 2025-10-17 20:31 | Emergency (ER) | payer BC, MEDICAID, SELFPAY ==
[2025-10-17 20:34] VITALS: BP 157/101; PULSE 98; RESP 20; TEMP 35.8; O2SAT 98
--- NOTE | 2025-10-17 20:34 | ED_ITS ---
HPI - Nausea/Vomiting/Diarrhea General Chief complaint: Nausea/Vomiting/Diarrhea Stated complaint: headache and diarrhea Time Seen by Provider: 10/17/25 20:33 Source: patient Mode of arrival: ambulatory Limitations: no limitations History of Present Illness HPI Narrative: 24 years old white female came to the emergency room from home by private car with her boyfriend complaining of 1 bowel movement of loose stool this morning, 4 bowel movement of water stool prior to arrival to the emergency room associated with slight headache and nausea. Patient works at [employer], few coworkers having similar symptoms in the last few days. She denies any fever or chills runny nose or sneezing coughing or sore throat or chest pain. Related Data Home Medications ?Medication ?Instructions ?Recorded ?Confirmed ?Last Taken ?Type glipizide 10 mg tablet 10 mg PO BID 10/17/25 Unknown History Allergies Allergy/AdvReac Type Severity Reaction Status Date / Time No Known Allergies Allergy Verified 10/17/25 20:33 Review of Systems 2 Review of Systems: All systems reviewed & are unremarkable except as noted in HPI and below PMFSH Past Medical History Medical History Screen for STD (sexually transmitted disease) Diabetes mellitus Menorrhagia Vaginal delivery x1 Nonalcoholic liver disease, chronic Anxiety and depression Surgical History Surgical History History of tonsillectomy and adenoidectomy 2015? Family History Family History Father Hypertension Asthma Mother , 06/2021 Diabetes mellitus Heart failure Kidney disease Hypertension Asthma Grandparent Diabetes mellitus Heart problem Other Patient's mother is Social History Social History Smoking status: Former smoker Tobacco type: e-cigarettes/vaping Second hand tobacco smoke exposure: No Smoking end date: 10/03/21 Additional smoking assessment comments: quit when she found out she was Alcohol intake: current Alcohol use details: heavy drinker prior to find out she is Substance use: never Lack of Transportation: No Lack of Food: Never True Current Housing: I Have Housing Concerned About Future Housing: No Difficulty Paying Gas/Electric Bills: No Difficulty Paying for Meds: No Currently Unemployed: No Difficulty w/ Childcare or Family Care: No Living arrangements: with family Occupation/Education: occupation Additional occupation/education comments: [employer] Gender identity (if verbalized by the patient): Female Spiritual care concerns: No Exam 2 Narrative: General appearance: Well-developed, well-nourished Skin: Normal color Head: Normocephalic, nontraumatic Eyes: Clear conjunctiva ENT: Oropharynx normal, ears normal, nose normal Neck: Supple, nontender Chest and respiratory: Airway patent, no respiratory distress, no accessory muscle use Heart: Regular rate/rhythm Abdomen: Soft, nontender, no organomegaly, hyperactive bowel sounds Musculoskeletal: Normal range of motion, nontender back Neurologic: Alert and oriented ?3, SALES SUPPORT REPRESENTATIVE is normal as tested, no gross motor deficit Course Vital Signs Vital signs: Vital Signs Temperature 35.8 C L 10/17/25 20:34 Pulse Rate 98 10/17/25 20:34 Respiratory Rate 20 10/17/25 20:34 Blood Pressure 157/101 H 10/17/25 20:34 Pulse Oximetry 98 10/17/25 20:34 Oxygen Delivery Room Air 10/17/25 20:34 Temperature 35.8 C L 10/17/25 20:34 Pulse Rate 98 10/17/25 20:34 Respiratory Rate 20 10/17/25 20:34 Blood Pressure 157/101 H 10/17/25 20:34 Pulse Oximetry 98 10/17/25 20:34 Oxygen Delivery Room Air 10/17/25 20:34 MDM MDM Narrative Medical decision making narrative: Patient presents with diarrhea and headache Vital signs are stable Physical examination showing hyperactive bowel sounds otherwise within normal limit Differential diagnosis include viral gastroenteritis, less likely electrolyte imbalance and dehydration. Blood workup today includes CBC, CMP showed potassium 3.2, AST 91 ALT 79 otherwise within normal limit Patient tested negative for COVID flu and RSV Patient received 1 L normal saline, 30 mg Toradol IV, mg Zofran IV and 40 mEq of potassium p.o. with remarkable improvement. Diagnosis: Diarrhea, hypokalemia The pt was discharged to home.the pt,s condition upon discharge was fair,education was provided to the pt in reference to the final impression,discharge study results,treatment,prognosis and need for follow up . Differential Diagnosis Differential Diagnosis: As above Medical Records I have reviewed the following patient records and this information was taken into consideration when formulating the assessment and plan.: previous labs Lab Data MDM Lab Attestation statement: I personally reviewed the patient's lab results. 10/17/25 20:50 10/17/25 20:50 Labs: Lab Results 10/17/25 10/17/25 10/17/25 Range/Units 20:45 20:46 20:50 WBC 7.2 (4.8-10.8) K/mm3 RBC 4.86 (4.20-5.40) M/mm3 Hgb 13.1 (12.0-15.0) g/dL Hct 40.4 (35.0-49.0) % MCV 83.1 (78.0-102.0) fL MCH 27.0 (27.0-31.0) pg MCHC 32.4 (32-36) g/dL RDW 12.6 (11.6-14.4) % Plt Count 338 (150-420) K/mm3 MPV 8.7 L (9.2-11.8) fl Immature Gran % (Auto) 0.1 H (0.0-0.0) % Neut % (Auto) 60.3 (50.0-70.0) % Lymph % (Auto) 31.1 (18.0-42.0) % [place] % (Auto) 5.1 (2.0-11.0) % Eos % (Auto) 3.0 (1.0-6.0) % Baso % (Auto) 0.4 (0.0-1.0) % Lymph # (Auto) 2.25 (1.10-4.50) K/mm3 [place] # (Auto) 0.37 (0.10-0.90) K/mm3 Eos # (Auto) 0.22 (0.02-0.50) K/mm3 Baso # (Auto) 0.03 (0.00-0.10) K/mm3 Abs Immat Gran (auto) 0.01 H (0.00-0.00) K/mm3 Absolute Neuts (auto) 4.35 (1.70-7.20) K/mm3 Absolute Nucleated RBC 0.00 (0.00-0.00) K/mm3 Nucleated RBC % 0.0 (0-0.0) % Sodium 140 (137-145) mmol/L Potassium 3.2 L (3.4-5.0) mmol/L Chloride 105 (98-107) mmol/L Carbon Dioxide 26 (22-30) mmol/L Anion Gap 9 (4-12) mmol/L BUN 8 (7-17) mg/dL Creatinine 0.63 L (0.7-1.0) mg/dL Estim Creat Clear Calc 172 ml/min Estimated GFR > 60 (59 - ) Glucose 160 H (65-110) mg/dL Calculated Osmolality 291 (285-295) mOsm/kg Calcium 9.4 (8.4-10.2) mg/dL Total Bilirubin 0.7 (0.2-1.3) mg/dL AST 91 H (14-36) U/L ALT 79 H (6-35) U/L Alkaline Phosphatase 89 (38-126) U/L Total Protein 7.6 (6.3-8.2) g/dL Albumin 4.4 (3.5-5.1) g/dL Urine Test Negative Influenza A (RT-PCR) Negative (Negative) Influenza B (RT-PCR) Negative (Negative) RSV (RT-PCR) Negative (Negative) SARS-CoV-2 RNA (RT-PCR) Negative (Negative) Critical Care Time Critical Care Time Critical Care Time: No Discharge Plan Discharge Clinical Impression: Diarrhea, Acute hypokalemia Patient Disposition: Home Condition: Improved Instructions: Hypokalemia (ED), Acute Diarrhea (ED) Additional Instructions: Return if symptoms are worsening , call your family physician for appointment, take Tylenol as as needed for aches and pain, continue home medications. Patient Language: Georgian Prescriptions: New potassium chloride [K-Tab] 20 mEq tablet extended release 20 meq PO BID Qty: 10 0RF No Action glipizide 10 mg tablet 10 mg PO BID Follow-up/Referrals: Harms,Uriel Sánchez M.D. [Primary Care Provider] Stand Alone Forms: Work/School Release IP
--- OUTSIDE RECORDS SUMMARY | 2025-10-17 20:36 | XMS_ITS | Clinical Summary ---
Author Organization [facility] Address [address] [place] [phone] Phone Care Team Providers Care Student Teacher Name Role Phone Unavailable Primary Care Provider [...] 2001 HPV VACCINES Completed 04/23/2016, 05/07/2013 Insurance [facility] BLUE ACCESS CHOICE
--- OUTSIDE RECORDS SUMMARY | 2025-10-17 20:36 | XMS_ITS | Clinical Summary ---
Author Organization [facility] Address [address] [place] [address] Care Team Providers Care Brick Pitcher Name Role Phone Uriel Walker MD Primary Care Provider [phone] Alisson Chavis STOKER ERECTOR Unavailable [phone] Allergies Active Allergy Reactions Criticality Noted Date Comments Celecoxib Dizziness,Nausea & Vomiting Low 10/06/20 25 Metformin Diarrhea Low 08/26/2025 Medications blood glucose diagnostic (glucose blood) stripIndication s:Type 2 diabetes mellitus with hyperglycemia, without long-term current use of insulin (HCC) 1 each by other route 2 (two) times a day 200 each 3 5 08/26/20 26 Active lancets miscIndications :Type 2 diabetes mellitus with hyperglycemia, without long-term current use of insulin (HCC) 1 each by other route 2 (two) times a day 200 each 3 5 Active blood-glucose meter miscIndications :Type 2 diabetes mellitus with hyperglycemia, without long-term current use of insulin (HCC) Use daily or as directed for monitoring of diabetes. 1 each 5 Active glipiZIDE (GLUCOTROL) 10 mg tabletIndicatio ns:type 2 diabetes mellitus Take 1 tablet (10 mg total) by mouth 2 (two) times a day before breakfast and lunch 180 tablet 3 5 09/23/20 26 Active tirzepatide (Mounjaro) 2.5 mg/0.5 mL pen injector injectionIndica tions:Type 2 diabetes mellitus with hyperglycemia, without long-term current use of insulin (HCC),Elevated LFTs,Class 3 severe obesity with serious comorbidity and body mass index (BMI) of 45.0 to 49.9 in adult, unspecified obesity type,Morbid obesity with BMI of 45.0-49.9, adult (HCC) Inject 0.5 mL (2.5 mg total) under the skin every 7 days 2 mL 5 11/11/19 26 Active glipiZIDE (GLUCOTROL) 5 mg tabletIndicatio ns:type 2 diabetes mellitus Take 1 tablet (5 mg total) by mouth daily 90 tablet 3 5 09/23/20 25 Discontin ued(Reord er) celecoxib (CeleBREX) 200 mg capsuleIndicati ons:Osteoarthri tis Take 1 capsule (200 mg total) by mouth 2 (two) times a day 180 capsule 3 5 10/12/20 25 Discontin ued(Patie nt Reported) Active Problems Problem Noted Date Diagnosed Date [...] placed. Will continue with PT and monitoring. Tendmanindermarleni Nhunghazel's 09/09/2023 Assessment & Plan (09/09/2023 11:06 AM TRAILER PARK MANAGER): Pain and tenderness on the radial [...] refilled. Assessment & Plan (09/09/2023 11:17 AM TRAILER PARK MANAGER): Continue checking glucose daily. Increase metformin [...] 06/06/2023 Assessment & Plan (09/09/2023 10:45 AM TRAILER PARK MANAGER): Improving after physical therapy. Encouraged continuing [...] today. Would like to have completed at [facility]. Aware that RN will call for auth [...] today. Would like to have completed at [facility]. Aware that RN will call for auth [...] Plan (06/26/2020 12:50 PM CDT): 06/26/20 A1C=6.0% AI=754 HDL=44 DK=872 JPC=712 TC/HDL=3.8 Copy of results as well as [...] urine in office. Will check labs at [facility]. Assessment & Plan (02/17/2020 6:18 PM CDT): [...] 2 meals/day (school lunch & meal at [employer] nightly when working). Stressed dietary changes. Need [...] to receive influenza vaccine. Encounter for medical exameliane home to establish care 02/23/2019 02/16/2020 Assessment [...] healthier, we can set up appointment with equipment superintendent/ward helper. 3. Have an active lifestyle, strive for [...] whatever food is nearby when hungry. Declines equipment superintendent. Has seen 2x at [facility]. Will make f/u appt in 1 month. Elevated hemoglobin A1c 05/22/201606/04 Overview (02/23/2019): May 04, 2016 ([facility] in [place], [place]) hemoglobin A1c 6.2% (< 5.7), TSH 2.75 uIU/mL (0.465-4.68), free T4 0.96 ng/dL (0.78-2.19), ALT 24 U/L (9-52), cholesterol 160 mg/dL (200); triglyceride 117 mg/dL (< 150), HDL-cholesterol 45 mg/dL (> 35), LDL-cholesterol 81 mg/dL (< 130) May 22, 2018 - hemoglobin A1c 5.8% ([facility]) Jul, 2018 - elevated hemoglobin A1c at well child care sitter visit (results unavailable) Last Assessment & Plan: [...] Plan (02/23/2019 1:14 PM CDT): Past A1c's: 8/8/18=6.6%, 02/01/19=6.5% Reviewed past labs w/Brandie and her mother Brandi. No medications at this time. Need lifestyle changes: diet & activity. Encounters Date Type Department Care Team Description 10/11/2025 Results [facility] [address] [address] Gerri Trevino NP US RUQ 10/06/2025 9:02 AM TRAILER PARK MANAGER - 10/06/2025 11:59 PM TRAILER PARK MANAGER Hospital Encounter [facility] [address] [facility] [address], [address] [place] [address] Susie Jaimes NP Lumbar radiculopathy (Primary Dx); Spondylolisthesis at L5-S1 level Discharge Disposition: Discharge to home or self care 10/05/2025 Results [facility] [address] [phone] Gerri Trevino NP Hepatic function panel 10/05/2025 Telephone [facility] [address] [phone] Uriel Walker MD Lab Results 09/27/2025 Telephone [facility] [address] [place] [address] [address] [place] [address] Linette Cottrell NP 09/23/2025 1:30 PM TRAILER PARK MANAGER Office Visit [facility] [address] [place] [address] 2 [address] [place] [address] Linette Cottrell NP Lumbar radiculopathy (Primary Dx); Carpal tunnel syndrome of right wrist; Low back pain, unspecified back pain laterality, unspecified chronicity, unspecified whether sciatica present 09/23/2025 1:18 PM TRAILER PARK MANAGER - 09/23/2025 11:59 PM TRAILER PARK MANAGER Hospital Encounter [facility] [address] [place] [address] Low back pain, unspecified back pain laterality, unspecified chronicity, unspecified whether sciatica present Discharge Disposition: Discharge to home or self care 09/23/2025 12:35 PM TRAILER PARK MANAGER Lab [place] [id number] Annual physical exam; Type 2 diabetes mellitus with hyperglycemia, without long-term current use of insulin (HCC); Encounter for screening for lipoid disorders 09/23/2025 Results [facility] [address] [phone] Gerri Trevino NP CBC with auto differential, Comprehensive metabolic panel, Hemoglobin A1c, Additional followed-up results: 3 09/23/2025 Orders Only [address] [place] [address] Linette Cottrell NP Low back pain, unspecified back pain laterality, unspecified chronicity, unspecified whether sciatica present (Primary Dx) 08/31/[address] [facility] [id number] [place] [address] 2 [address] [place] [address] Ashwini Zaidi 08/29/2025 Telephone [facility] [address] [address] Uriel Walker MD Med Refill 08/26/2025 9:30 AM CDT Office Visit [facility] [address] [address] Gerri Trevino NP Annual physical exam (Primary [...] obesity with BMI of 45.0-49.9, adult (HCC) 08/26/2025 Telephone [facility] [address] [address] Uriel Walker MD 08/26/2025 Telephone [facility] [address] [phone] Gerri Trevino, DEREK from Last 3 Months Immunizations Immunization Administration [...] ) Anxiety Diabetes mellitus Hypertension Miscarriage 2024 Depression Family History Medical History Relation Name Comments Asthma Father Kevan Torres Hypertension Father Kevan Torres Hypertension; Clotting disorder Mother Brandi Trevizo Diabetes Mother Brandi Trevizo Diabetes melli tus; Early Mother Brandi Trevizo Heart attack Mother Brandi Trevizo Kidney disease Mother Brandi Trevizo Kidney failure Mother Brandi Trevizo Relation Name Status Comments Father Kevan Torres Alive Mother Brandi Trevizo Alive Social History Tobacco Use Types Packs/Day [...] more points, staff should administer the PHQ-9) 2 10/06/2025 PHQ-9 Answer Date Recorded PHQ-9 Total Score 6 10/06/2025 Comments No Sex and Gender Information Value Date Recorded Sex Assigned at Not on file Legal Sex Female 1:53 AM TRAILER PARK MANAGER Gender Identity Female 11/22/2020 12:52 PM TRAILER PARK MANAGER Sexual Orientation Straight 11/22/2020 12 :52 PM TRAILER PARK MANAGER Last Filed Vital Signs Vital Sign Reading Time Taken Comments Blood Pressure 116/88 10/06/2025 9:51 AM TRAILER PARK MANAGER Pulse 78 10/06/2025 9:51 AM TRAILER PARK MANAGER Temperature 36.9 C (98.4 F) 09/23/2025 1:38 PM TRAILER PARK MANAGER Respiratory Rate 18 10/06/2025 9:51 AM TRAILER PARK MANAGER Oxygen Saturation 96% 10/06/2025 9:51 AM TRAILER PARK MANAGER Inhaled Oxygen Concentration - - Weight 131.7 kg (290 lb 6.4 oz) 09/23/2025 1:38 PM TRAILER PARK MANAGER Height 165.1 cm (5' 5) 08/26/2025 [...] 09/23/2025, 12/0 02/2023, 09/09/2023, Additional history exists Regular Well Visit/Exam 18-64 08/26/2026 08/26/2025 Lipid Panel 09/23/2026 09/23/2025, 12/0 02/2023, 09/09/2023, Additional history exists eGFR 09/23/2026 09/23/2025, 12/0 02/2023, 12/07/2021, Additional history exists Depression Screening 10/06/2026 10/06/2025, 10/06/2025, 08/26/2025, Additional history exists DTaP/Tdap/Td Vaccine (9 - Td or Tdap) 05/25/2032 05/25/2022, 08/03/2021, 05/07/2013, Additional history exists Hepatitis B Screening Completed 08/30/2002 , 2001, 2001 Varicella Vaccines Completed 02/06/2007, 02/14/2003 HPV Vaccines Completed 04/23/2016, 05/07/2013 Procedures Procedure Name Priority Date/Time Associated Diagnosis Comments US RUQ Schedule Routine, Read Routine (OP Routine) 10/11/2025 HEPATIC FUNCTION PANEL Routine 10/05/2025 10:34 AM TRAILER PARK MANAGER XR SPINE LUMBAR 2 OR 3 VIEWS Schedule Routine, Read Routine (OP Routine) 09/23/2025 1:26 PM TRAILER PARK MANAGER Low back pain, unspecified back pain laterality, unspecified chronicity, unspecified whether sciatica present EGFR Routine 09/23/2025 12:51 PM TRAILER PARK MANAGER Annual physical exam Type 2 diabetes mellitus with hyperglycemia, without long-term current use of insulin (HCC) DIFFERENTIAL AUTO Routine 09/23/2025 12: 51 PM TRAILER PARK MANAGER Annual physical exam LIPID PANEL Routine 09/23/2025 12:51 PM TRAILER PARK MANAGER Annual physical exam Encounter for screening for lipoid disorders COMPREHENSIVE METABOLIC PANEL Routine 09/23/2025 12:51 PM TRAILER PARK MANAGER Annual physical exam Type 2 diabetes mellitus with hyperglycemia, without long-term current use of insulin (HCC) CBC WITH AUTO DIFFERENTIAL Routine 09/23/2025 12:51 PM TRAILER PARK MANAGER Annual physical exam HEMOGLOBIN A1C Routine 09/23/2025 12:50 PM TRAILER PARK MANAGER Annual physical exam Type 2 diabetes mellitus with hyperglycemia, without long-term current use of insulin (HCC) SCAN - LABS 07/27/2025 SCAN - LABS 07/19/2025 DIABETES EYE EXAM Routine 10/22/2023 ALBUMIN CREATININE RATIO, URINE Routine 10/06/2023 12:19 PM TRAILER PARK MANAGER New onset type 2 diabetes mellitus (HCC) from Last 3 Months or Most Recently Relevant to Health Maintenance Results * (ABNORMAL) US RUQ (10/11/2025) Anatomical Region Laterality Modality Abdomen N/A Ultrasound 10/11/2025 us Historical Provider MD MIRANDA US PROCEDURES Final R esult * (ABNORMAL) Hepatic function panel (10/05/2025 10:34 AM TRAILER PARK MANAGER) SCRIBED Protein, Total, Serum 7.3 6.3 - 8.2 g/dL EXTERNAL LAB SCRIBED Albumin 4.4 3.5 - 5.1 g/dL EXTERNAL LAB SCRIBED Bilirubin, Total 0.7 0.2 - 1.3 mg/dL EXTERNAL LAB SCRIBED Bilirubin, Direct 0.1 0 - 0.3 mg/dL EXTERNAL LAB SCRIBED Alkaline Phosphatase 88 38 - 126 Units/L EXTERNAL LAB SCRIBED Aspartate Transaminase (AST) 114(A) 14 - 36 Units/L EXTERNAL LAB SCRIBED Alanine Transaminase (ALT) 99(A) 6 - 35 Units/L EXTERNAL LAB Blood 10/05/2025 10:3 4 AM TRAILER PARK MANAGER us Historical Provider LAB BLOOD ORDERABLES Jessenia l Result EXTERNAL LAB * XR Spine Lumbar 2 or 3 Views (09/23/2025 1:26 PM TRAILER PARK MANAGER) Anatomical Region Laterality Modality Spine N/A Computed Radiogr aphy 09/23/2025 3:09 PM TRAILER PARK MANAGER Impressions 09/23/2025 3:09 PM TRAILER PARK MANAGER No acute fracture. Mild multilevel endplate changes. Mild intervertebral disc space narrowing at L1-L2. Mild spondylosis at L4-L5. There is bilateral L5 spondylolysis with grade 1 anterolisthesis of L5 on S1 measuring 5 mm, increased from 2 mm on prior examination from 2019. Electronically signed by: David Duarte II, D.O. Narrative 09/23/2025 3:09 PM TRAILER PARK MANAGER EXAM: XR SPINE LUMBAR 2 OR 3 VIEWS DATE: 09/23/2025 1:20 PM CLINICAL HISTORY: LOW BACK PAIN COMPARISON: December 22, 2024 Procedure Note David Duarte II, DO - 09/23/2025 EXAM: XR SPINE LUMBAR 2 [...] from 2 mm on prior examination from 2020. Electronically signed by: David Duarte II, D.O. Linette Cottrell NP IMG XR PROCEDURES Final Result * eGFR (09/23/2025 12:51 PM TRAILER PARK MANAGER) eGFR >90 >=60 mL/min/1. 73 m2 [...] reviewed 2021. Blood 09/23/2025 12:5 1 PM TRAILER PARK MANAGER 09/23/2025 12:51 PM TRAILER PARK MANAGER Gerri Trevino NP LAB [place]LOOD [place] [address] [address] Department [place] [address] * Differential, auto (09/23/2025 12:51 PM TRAILER PARK MANAGER) Neutrophil abs 5.23 1.50 - 6.50 K/cumm Imm gran abs 0.01 0.00 - 0.10 K/cumm [facility] Lymphocyte abs 1.38 0.80 - 3.30 K/cumm [facility] Monocyte abs 0.39 0.20 - 0.80 K/cumm [facility] Eosinophil abs 0.15 0.00 - 0.50 K/cumm [facility] Basophil abs 0.02 0.00 - 0.10 K/cumm [facility] Neutrophil pct 72.9 % [facility] Comment: Interpretive Data Percent cell count reference ranges are not reported, since discordance with absolute values may lead to misinterpretation of CBC data. Current Interpretive Data was last revised on 2018. Imm gran pct 0.1 % [facility] Comment: Interpretive Data Percent cell count reference ranges are not reported, since discordance with absolute values may lead to misinterpretation of CBC data. Current Interpretive Data was last revised on 2018. Lymphocyte pct 19.2 % [facility] Comment: Interpretive Data Percent cell count reference ranges are not reported, since discordance with absolute values may lead to misinterpretation of CBC data. Current Interpretive Data was last revised on 2018. Monocyte pct 5.4 % [facility] Comment: Interpretive Data Percent cell count reference ranges are not reported, since discordance with absolute values may lead to misinterpretation of CBC data. Current Interpretive Data was last revised on 2018. Eosinophil pct 2.1 % [facility] Comment: Interpretive Data Percent cell count reference ranges are not reported, since discordance with absolute values may lead to misinterpretation of CBC data. Current Interpretive Data was last revised on 2018. Basophil pct 0.3 % [facility] Comment: Interpretive Data Percent cell count reference ranges are not reported, since discordance with absolute values may lead to misinterpretation of CBC data. Current Interpretive Data was last revised on 2018. Blood 09/23/2025 12:5 1 PM TRAILER PARK MANAGER 09/23/2025 12:51 PM TRAILER PARK MANAGER us Gerri Trevino NP LAB [place]LOOD [place] [address] [address] Department [place] [address] * (ABNORMAL) CBC with auto differential (09/23/2025 12:51 PM TRAILER PARK MANAGER) WBC 7.18 3.80 - 9.90 K/cumm Hgb 13.3 11.9 - 15.5 g/dL [facility] CH Hct 40.8 35.6 - 45.5 % [facility] Plt 324 150 - 400 K/cumm [facility] CH MPV 8.9(L) 9.1 - 12.3 fL [facility] RBC 5.00 3.90 - 5.20 M/cumm [facility] CH MCV 81.6 81.3 - 96.4 fL [facility] MCH 26.6(L) 27.1 - 33.3 pg [facility] MCHC 32.6 32.3 - 35.7 g/dL [facility] CH RDW CV 13.0 11.1 - 14.9 % [facility] CH RDW SD 38.0 35.7 - 48.1 fL [facility] [place] NRBC abs 0.00 0.00 - 0.01 K/cumm [facility] Blood 09/23/2025 12:5 1 PM TRAILER PARK MANAGER 09/23/2025 12:51 PM TRAILER PARK MANAGER Gerri Trevino NP LAB BLOOD ORDERABLES Final Re sult [facility] [address] Department [place] [address] * (ABNORMAL) Lipid panel (09/23/2025 12:51 PM TRAILER PARK MANAGER) Cholesterol 164 30 - 199 mg/dL [...] revised on 2018. Triglycerides 185(H) <=149 mg/dL [facility] Comment: Interpretive Data Ages < or = [...] on 2018. HDL 33(L) >=40 mg/dL CONNIE Comment: Interpretive Data Ages < [...] 2018. LDL, calculated 99 <=129 mg/dL [facility] Comment: Interpretive Data Ages < [...] NCEP Expert Panel. Circulation 2004;110:227 3. Ronnie Simmons al. JOE Cardiol. 2020 March 03;5(5):540-548. doi: [...] [facility] Blood 09/23/2025 12:5 1 PM TRAILER PARK MANAGER 09/23/2025 12:51 PM TRAILER PARK MANAGER us Gerri Trevino STOKER ERECTOR LAB BLOOD ORDERABLES Final Re sult [facility] [address] [address] Department [place] [address] * (ABNORMAL) Comprehensive metabolic panel (09/23/2025 12:51 PM TRAILER PARK MANAGER) Sodium 135 135 - 145 mmol/L Potassium, pl 3.8 3.3 - 4.9 mmol/L [facility] Chloride 99 97 - 110 mmol/L [facility] CO2 24 22 - 32 mmol/L [facility] Anion gap 12 2 - 15 mmol/L [facility] BUN 8 6 - 25 mg/dL [facility] Creatinine 0.53(L) 0.60 - 1.10 mg/dL [facility] Glucose 367(H) 70 - 199 mg/dL [facility] Comment: Interpretive Data Fasting glucose >/= 126 [...] Calcium 8.9 8.5 - 10.3 mg/dL [facility] Bilirubin, total 0.4 0.1 - 1.2 mg/dL [facility] Protein, pl 6.9 6.5 - 8.5 g/dL [facility] Albumin 3.8 3.5 - 5.0 g/dL [facility] Alk phos 94 40 - 130 Units/L [facility] ALT 55(H) 7 - 45 Units/L [facility] AST 77(H) 10 - 45 Units/L [facility] Blood 09/23/2025 12:5 1 PM TRAILER PARK MANAGER 09/23/2025 12:51 PM TRAILER PARK MANAGER Gerri Trevino NP LAB BLOOD ORDERABLES Final Re sult Performing Organization Address [facility] Co de Phone Number [place] [address] [place] [address] * (ABNORMAL) Hemoglobin A1c (09/23/2025 12:50 PM TRAILER PARK MANAGER) Hgb A1C 9.9(H) 4.0 - 5.6 % Estimated Average Glucose 237 mg/dL [facility] Comment: The ADA recommends reporting an estimated Average Glucose (eAG) with all Hemoglobin A1c results using the equation derived from a study of 507 normal and diabetic adults. Minority populations were underrepresented and children were not included. (Diabetes Care 31:6518-5570, 2008). The eAG is not equivalent to a fasting glucose. Blood 09/23/2025 12:5 0 PM TRAILER PARK MANAGER 09/23/2025 12:50 PM TRAILER PARK MANAGER Gerri Trevino NP LAB BLOOD ORDERABLES Final Re sult Performing Organization Address City/[facility]/ZIP Co de Phone Number [facility] [address] [facility] [place] [address] * SCAN - LABS (07/27/2025) Provider Scanning Edited Result - Final * SCAN - LABS (07/19/2025) us Provider Scanning Final Result * HM DIABETES EYE EXAM (10/22/2023) SCRIBED DIABETIC DILATED EYE EXAM Normal Historical Provider HEALTH MAINTENANCE Final Result * Albumin Creatinine Ratio, Urine (10/06/2023 12:19 PM TRAILER PARK MANAGER) Albumin Ur <12.0 mg/L CONNIE Baum (LIN) Comment: Interpretive Data No reference range established. Current interpretive data was last revised 2019. Testing performed by: [facility], [address] [place] [address]., [id number] Creatinine Ur 214.2 mg/dL CONNIE ALSTON ([place]) Comment: Interpretive Data No reference range established. Current interpretive data was last revised 2019. Testing performed by: [facility], [address] [place] [address]., [id number] Albumin Creatinine Ratio, Ur <6 1 - 29 mg/g CONNIE ALSTON (LIN) Comment:Testing performed by : [facility], [address] [place] [address]., [address] Urine 10/06/2023 12:1 9 PM TRAILER PARK MANAGER 10/06/2023 6:05 PM TRAILER PARK MANAGER Roseann Galvan NP LAB URINE ORDERABLES Final Result CONNIE ALSTON (LIN) 1 [facility] Department [place] [address] from Last 3 Months or Most Recently Relevant to Health Maintenance Insurance [facility] Member Subscriber Plan / Payer (Ef fective 2018-Present) Name:Brandie Torres Relation to Subscriber:Child Name:BRANDI TREVIZO Date of :1982 (Home) Address: [address] [place] [address] Payer ID:[id number] (NAIC) Type: ALLIANCE Address: [id number] [employer] [place] [employer] [place] [employer] [place] Member Subscriber Plan / Payer ( fective 2023-Present) Name:Brandie Torres Relation to Subscriber:Child Name:VICKIEDANGELO PEREZ Date of :1982 (Home) Address: [address] [place] [place] [id number] Payer ID:[id number] (NAIC) Type:BC OTHER Address: [address] [place] [id number] Care Teams Brick Pitcher Relationship Specialty Start Date End Date [place] [address] PCP - General Family Medicine 02/23/19 [place] [address] [address] [facility] [address] [place] [address] Nurse Practitioner Infection Prevention Specialist 12/01/24
--- OUTSIDE RECORDS SUMMARY | 2025-10-17 20:36 | XMS_ITS | Clinical Summary ---
Author Organization [facility] Address [facility] [place] [address] Care Team Providers Care Registration Clerk Name Role Phone Uriel Walker MD Primary Care Provider [phone] Allergies No known active allergies Medications Glucagon [...] How often do you attend chur or restoration services? Never 04/26/2022 Do you belong to any clubs o r organizations such as gnosticism groups, unions, fraternal or athletic groups, or [...] and heating? Not hard at all 04/26/2022 [facility] - Occupational [...] place to sleep or slept in a mcc (including now)? No 04/26/2022 Comments No Sex [...] patient's age to complete this topic Insurance [facility] Care Teams Registration Clerk Relationship Specialty Start Date End Date Uriel Walker MD [address] [place] [address] PCP - General INTERNAL MEDICINE 04/26/22
--- OUTSIDE RECORDS SUMMARY | 2025-10-17 20:37 | XMS_ITS | Encounter Summary ---
Author Organization [facility] Healthcare Address [address] [place] [id number] Care Team Providers Care Procurement Technician Name Role Phone Uriel Walker MD Primary Care Provider [phone] Alisson Chavis SOCIAL PROBLEMS SPECIALIST Unavailable [phone] Encounter Details Date Type Department Care Team (Late st Contact Info) Description 09/23/2025 Results [facility] [address] [address] Gerri Trevino NP [address] [place] [address] CBC with auto differential, Comprehensive metabolic panel, [...] on file Legal Sex Female 1:53 AM CAREER COORDINATOR Gender Identity Female 11/22/2020 12:52 PM CAREER COORDINATOR Sexual Orientation Straight 11/22/2020 12 :52 PM CAREER COORDINATOR documented as of this encounter Functional Status * Merchant Fall Risk Question Answer Date of Assessment Author History of Falling 0 09/23/2025 1:00 PM Gerardo Teran RN Secondary Diagnosis 15 09/23/2025 1:00 PM CS T Gerardo Dobson RN Ambulatory Aids 0 09/23/2025 1:00 PM CAREER COORDINATOR Gerardo Jose RN Intravenous Therapy/Heparin/Saline Lock 0 09/23/2025 1:00 PM Cici Teran RN Gait/Transferring 0 09/23/2025 1:00 PM Gerardo Teran RN Mental Status 0 09/23/2025 1:00 PM CAREER COORDINATOR Gerardo Sotelo rd, RN Merchant Fall Risk Score (Score [...] breakfast and lunch 180 tablet 3 09/23/2025 documented in this encounter Miscellaneous Notes * Telephone Encounter - Lotus Bradley - 10/03/2025 12:13 PM CST Faxed orders to number below Patient notified. ER COORDINATOR * Telephone Encounter - Ingrid Fuchs - 10/03/2025 10:44 AM CST Call Back Caller???s Concern: Please fax repeat lab orders to [facility] at fax # [phone]. Thank you. Does message need to be routed? Yes-Action Needed ER COORDINATOR documented in this encounter Plan of [...] documented as of this encounter Care Teams Procurement Technician Relationship Specialty Start Date End Date Uriel Walker MD [address] [place] [address] PCP - General Family Medicine 02/23/19 [place] [address] [address] Nurse Practitioner Controls Design Engineer 12/01/24 documented as of this encounter
--- OUTSIDE RECORDS SUMMARY | 2025-10-17 20:37 | XMS_ITS | Clinical Summary ---
Author Organization [email or web address] Address [address] [place] [address] Care Team Providers Care Family Program Specialist Name Role Phone Christine Peterson MD Primary Care Provider [phone] Source Comments [email or web address],non-owned Affiliates and Associated Physician Practices is amultiple site organization consisting of ambulatory clinics and hospital sitesin [place], [place], [place]. This disclosure is being madepursuant to the Care Everywhere program and may not contain all information available regarding this patient. Last updated 18.[email or web address] Allergies No known active allergies Medications * Be aware that medications may not be up to date on this document. Alwaysverify current medications with the patient. Lancets ([place]) [facility] [place] 5-9 Each once [...] Glucagon (BAQSIMI ONE PACK) 3 MG/DOSE POWD [place] 3 mg into the nose as needed [...] and anxiety without thoughts of self harm. [facility] recommendations: 1. I reviewed the risks to [...] in the breast milk. 3. 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 [facility] recommendations: 1. Start magnesium supplement to help [...] from birthweights. I advised Brandie that the [employer] recommends delivery [...] sweetened beverages. 3. Close contact with our nurse educator to optimize glycemic control on [...] of hypoplastic left heart. Normal echocardiogram with [facility]. Resolved Problems Problem Noted Date Diagnosed Date Resolved Date Dysuria during in third trimester 06/13/2021 04/30/2022 Assessment & Plan (06/13/2021 5:00 PM CDT): Dysuria present intermittently with 1+ urine protein, patient is normotensive. Reports UTI that was treated in the 2nd trimester. [facility] recommendations: 1. Sent with lab requisition to have UA and culture collected at local lab today. 2. Alert OB if worsening symptoms before results. Supervision of normal first 03/26/2021 04/30/2022 Overview (03/26/2021): O Neg; AB: Neg, Immune, Rpr: NR, HIV: NR, Hbsag: NR H/h/p: 13.1 / 39.8 / 401 Elevated hemoglobin A1c 05/22/201603/04 Overview (08/25/2018): May 04, 2016 ([facility] in [place], [place]) hemoglobin A1c 6.2% (< 5.7), TSH 2.75 uIU/mL (0.465-4.68), free T4 0.96 ng/dL (0.78-2.19), ALT 24 U/L (9-52), cholesterol 160 mg/dL (200); triglyceride 117 mg/dL (< 150), HDL-cholesterol 45 mg/dL (> 35), LDL-cholesterol 81 mg/dL (< 130) May 22, 2018 - hemoglobin A1c 5.8% ([facility]) Jul, 2018 - elevated hemoglobin A1c at well child adolescent care visit (results unavailable) Assessment & Plan (08/25/2018 10:16 AM CDT): 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 Obtain prior laboratory results 2. Orders Placed This Encounter COMPREHENSIVE METABOLIC PANEL Standing Status: Standing Number of Occurrences: 1 C-PEPTIDE Standing Status: Standing Number of Occurrences: 1 GLUTAMIC ACID DECARBOXYLASE (DIAAN) ANTIBODY Standing Status: Standing Number of Occurrences: [...] TSH. RTC in 2 weeks to see master control supervisor, 3 months to see . 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
--- NOTE | 2025-10-17 20:49 | PC.NURSE ---
covid swab given to lab
[2025-10-17] MEDS: SODIUM CHLORIDE 0.9% IV 1,000 ML 999 ML IV CONT (20:51)
[2025-10-17 20:55] LABS: Hematocrit 40.4 % (35.0-49.0); Hemoglobin 13.1 g/dL (12.0-15.0); Immature Granulocyte Percent A 0.1 % (0.0-0.0); Lymphocytes Absolute Auto 2.25 K/mm3 (1.10-4.50); Mean Corpuscular HGB Conc 32.4 g/dL (32-36); Mean Corpuscular Hemoglobin 27.0 pg (27.0-31.0); Mean Corpuscular Volume 83.1 fL (78.0-102.0); Nucleated Red Blood Cells Absolute Auto 0.00 K/mm3 (0.00-0.00); Nucleated Red Blood Cells Perc 0.0 % (0-0.0); Platelet Count Result 338 K/mm3 (150-420); Red Blood Count 4.86 M/mm3 (4.20-5.40); White Blood Count 7.2 K/mm3 (4.8-10.8)
[2025-10-17] MEDS: KETOROLAC 30 MG/ML VIAL (*BKC) IV PUSH (20:55)
[2025-10-17] MEDS: ONDANSETRON INJ 4 MG/2 ML VIAL IV PUSH ×2 (20:57→22:13)
[2025-10-17 21:00] LABS: Pregnancy On Board Control Positive
[2025-10-17 21:32] LABS: Alanine Aminotransferase 79 U/L (6-35); Albumin Level 4.4 g/dL (3.5-5.1); Alkaline Phosphatase 89 U/L (38-126); Anion Gap 9 mmol/L (4-12); Aspartate Amino Transferase 91 U/L (14-36); Bilirubin,Total 0.7 mg/dL (0.2-1.3); Blood Urea Nitrogen 8 mg/dL (7-17); Calcium 9.4 mg/dL (8.4-10.2); Carbon Dioxide 26 mmol/L (22-30); Chloride 105 mmol/L (98-107); Estimated CRCL calculation 172 ml/min; Estimated Glomerular Filt Rate > 60; Glucose 160 mg/dL (65-110); Osmolality Calculated 291 mOsm/kg (285-295); Potassium 3.2 mmol/L (3.4-5.0); Sodium 140 mmol/L (137-145); Total Protein 7.6 g/dL (6.3-8.2)
[2025-10-17 21:46] LABS: Influenza A QL RT-PCR Negative (Negative); Influenza B QL RT-PCR Negative (Negative); RSV RNA, RT-PCR Negative (Negative); SARS-CoV-2 RNA PCR Negative (Negative)
--- NOTE | 2025-10-17 21:56 | PC.NURSE ---
JOHNY Azar at pt bedside at this time for update of results and plan of care.
[2025-10-17] MEDS: POTASSIUM CHLORIDE 20 MEQ PACKET (FOR LIQUID) 40 MEQ PO (22:05)
[2025-10-17 22:06] VITALS: BP 134/93; PULSE 69; RESP 18; TEMP 36.5; O2SAT 99
== END 2025-10-17 22:25 | disposition home or self-care (01) ==
PROVIDERS: Emergency Provider Emergency Medicine; PCP Family Medicine
DX: R19.7 Diarrhea, unspecified (principal); E87.6 Hypokalemia; E11.9 Type 2 diabetes mellitus without complications; Z79.899 Other long term (current) drug therapy; Z87.891 Personal history of nicotine dependence; Z20.822 Contact with and (suspected) exposure to COVID-19
CPT/HCPCS: 36415; 80053; 81025; 85025; 87637; 96361; 96374; 96375; 96376; 99284; A9270; J1885; J2405; J7030